=== PATIENT | male | born 1975 | race Caucasian/White ===

== ENCOUNTER 2023-04-13 12:37 | Outpatient (OUT) | payer MEDICAID, SELFPAY ==
[2023-04-13 13:13] LABS: Estimated Average Glucose 169 mg/dL; Glycohemoglobin A1C 7.5 % (4.5-6.2)
== END 2023-04-13 12:38 | disposition home or self-care (01) ==
LOC: LAB 12:41
PROVIDERS: PCP Internal Medicine; Visit Provider Internal Medicine
DX: E11.65 Type 2 diabetes mellitus with hyperglycemia (principal)
CPT/HCPCS: 36415; 83036

== ENCOUNTER 2023-04-15 22:52 | Emergency (ER) | payer MEDICAID, SELFPAY ==
[2023-04-15 22:55] VITALS: BP 143/98; PULSE 99; RESP 16; TEMP 37.1; O2SAT 96; BMI 39.3
--- NOTE | 2023-04-15 23:20 | ED.BACK1 ---
HPI - Back Pain/Injury General Chief Complaint: Back Pain/Injury Stated Complaint: BACK PAIN Time Seen by Provider: 04/15/23 23:00 Source: patient Mode of arrival: walk-in Limitations: no limitations History of Present Illness HPI Narrative: This 47-year-old male with a history of chronic back pain who has undergone radiofrequency ablation of his lumbar spine and had injections in his upper spine and is scheduled to see a neurologist on Sunday who is currently on Percocet, Lyrica and baclofen presents for evaluation of worsening right upper back pain underneath his right shoulder blade area. He denies any recent injury. He has no weakness or numbness. He also states that he feels like his scrotal area is being squeezed and he is having shooting pain into this area. He does not have any difficulty urinating. He is diabetic. He has no skin rash in his perineal area. He denies any bowel or bladder dysfunction. He has no lower extremity weakness. He does state that he feels that this is his chronic pain but it is worsening. He is ALLERGIC to NSAIDs and cannot have steroids due to his diabetes. MD elicited complaint: Reports back pain Related Data Allergies Allergy/AdvReac Type Severity Reaction Status Date / Time NSAIDS (Non-Steroidal Allergy Severe Anaphylaxis Verified 04/16/23 00:21 Anti-Inflamma Review of Systems ROS Status of ROS 10 or more systems reviewed and unremarkable except as noted in history and below [facility] Social History Smoking status: Former smoker Exam Narrative Exam Narrative: Nurses note and vital signs reviewed and patient is not hypoxic. Blood pressure is elevated at 143/98 General: Non toxic, overweight male, no distress noted, he moves easily about the stretcher and is ambulatory with a steady gait Skin: Warm, dry, no pallor noted. There is no rash noted. Head: Normocephalic, atraumatic Eye: Normal conjunctiva, no drainage, EOMI. PERRL Ears, Nose, Mouth, and Throat: oral mucosa is moist. Nares patent. Mouth without vesicles. Ear canals patent. Tm's without Erythema Cardiovascular: Regular Rate and Rhythm Respiratory: Patient is in no distress, no accessory muscle use, lungs are clear to auscultation, no wheezing, rales or rhonchi Back: Diffuse tenderness in the mid to upper thoracic region on underneath the right scapula, no skin rash noted, there is decreased lumbar lordosis noted and general tenderness throughout the lumbar spine. GI: Normal bowel sounds, no tenderness to palpation, no masses appreciated. No rebound, guarding, or rigidity noted. : exam chaperoned by RN, testes are descended bilaterally, scrotum are nontender, there is no inguinal tenderness or lymphadenopathy, penis and urethra appeared normal. There is no appreciable skin rash or other notable abnormality in the perineal area Musculoskeletal: The patient has no evidence of calf tenderness, no pitting edema, symmetrical pulses noted bilaterally Neurological: A&O x4, normal speech, Upper and lower external he strength and sensation is intact, deep tendon reflexes are brisk and equal bilaterally, there is no saddle anesthesia Psychiatric: Cooperative Constitutional Vital Signs, click to edit/add: Last Vital Signs Temp 98.8 F 04/15/23 22:55 Pulse 99 H 04/15/23 22:55 Resp 16 04/15/23 22:55 BP 143/98 H 04/15/23 22:55 Pulse Ox 96 04/15/23 22:55 O2 Del Method Room Air 04/15/23 22:55 Course Course Hospital Course: Pt has been ambulatory in the ED without difficulty. His labs are normal including a d dimer that is negative. He will be medicated with a single dose of IM Dilaudid and IM Norflex. Vital Signs Vital signs: Vital Signs Temperature 98.8 F 04/15/23 22:55 Pulse Rate 99 H 04/15/23 22:55 Respiratory Rate 16 04/15/23 22:55 Blood Pressure 143/98 H 04/15/23 22:55 Pulse Oximetry 96 04/15/23 22:55 Oxygen Delivery Method Room Air 04/15/23 22:55 Temperature 98.8 F 04/15/23 22:55 Pulse Rate 99 H 04/15/23 22:55 Respiratory Rate 16 04/15/23 22:55 Blood Pressure 143/98 H 04/15/23 22:55 Pulse Oximetry 96 04/15/23 22:55 Oxygen Delivery Method Room Air 04/15/23 22:55 MDM - Back Pain/Injury MDM Narrative Medical decision making narrative: This 47-year-old male with a history of chronic back pain presents for evaluation of worsening back pain. He complains of pain underneath his right shoulder blade. He denies any weakness numbness or tingling. He is also having worsening of his low back pain and feels like he is being given shocks into his genital region. His physical exam was normal. There was no abnormality in his perineal area. His reflexes are normal. Is ambulatory without difficulty. He is on Percocet, baclofen and Lyrica. I signed to him that I could give him a dose of a nonnarcotic medication such as Toradol but he states he has anaphylactic reactions to NSAIDs and refused steroids because he is diabetic. Due to the pain in the right scapular area ordered a d-dimer which was normal. CBC with differential and chemistry panel was also ordered and with the exception of a glucose of 151 it is normal. The patient arranged to get a ride home with his daughter and was medicated in emergency department with IM Norflex and IM Dilaudid. He will be discharged home to continue his current medical regimen and follow-up with neurology on Sunday. He is in agreement with this plan. His and daughter came to pick him up since he had the injection of the pain medication and muscle relaxant. Lab Data Labs: Lab Results 04/15/23 Range/Units 23:30 WBC 11.2 H (4.0-11.0) 10^3/uL RBC 5.00 (4.70-6.10) 10^6/uL Hgb 15.4 (14.0-18.0) g/dL Hct 44.5 (42.0-54.0) % MCV 89.0 (80.0-94.0) fL MCH 30.8 (25.9-34.0) pg MCHC 34.6 (29.9-35.2) g/dL RDW 12.6 (11.0-15.0) % Plt Count 373 (150-450) 10^3/uL MPV 10.5 (9.5-13.5) fL Neut % (Auto) 57.5 (43.0-75.0) % Lymph % (Auto) 31.6 (20.5-60.0) % [place] % (Auto) 7.9 (1.7-12.0) % Eos % (Auto) 1.7 (0.9-7.0) % Baso % (Auto) 0.7 (0.2-2.0) % Neut # (Auto) 6.5 (1.4-6.5) 10^3/uL Lymph # (Auto) 3.5 (1.2-3.8) 10^3/uL [place] # (Auto) 0.9 H (0.3-0.8) 10^3/uL Eos # (Auto) 0.2 (0.0-0.7) 10^3/uL Baso # (Auto) 0.1 (0.0-0.1) 10^3/uL Abs Immat Gran (auto) 0.07 H (0.00-0.03) 10^3/uL Imm/Tot Granulo (auto) 0.6 H (0.0-0.5) % D-Dimer 0.25 (<=0.59) mg/L FEU Sodium 134 L (136-145) mmol/L Potassium 3.7 (3.5-5.1) mmol/L Chloride 100 (98-107) mmol/L Carbon Dioxide 24.4 (21.0-32.0) mmol/L Anion Gap 13.3 BUN 15.0 (7.0-18.0) mg/dL Creatinine 0.93 (0.70-1.30) mg/dL Est GFR ( Amer) >60 (>=60) Est GFR (Non-Af Amer) >60 (>=60) BUN/Creatinine Ratio 16.1 Glucose 151 H (74-106) mg/dL Calcium 9.7 (8.5-10.1) mg/dL Total Bilirubin 0.4 (0.2-1.0) mg/dL AST 18 (15-37) U/L ALT 35 (16-63) U/L Alkaline Phosphatase 77 (46-116) U/L Total Protein 8.1 (6.4-8.2) g/dL Albumin 4.2 (3.4-5.0) g/dL Globulin 3.9 g/dL Albumin/Globulin Ratio 1.1 Discharge Plan Discharge Chief Complaint: Back Pain/Injury Clinical Impression: Acute exacerbation of chronic low back pain, Thoracic back pain Patient Disposition: Home, Self-Care Time of Disposition Decision: 00:52 Condition: Good Instructions: Acute Low Back Pain (ED), Chronic Back Pain (DC) Stand Alone Forms: Portal Instructions Referrals: Shaikh Prater MD [Primary Care Provider] - 1 week
[2023-04-15 23:39] LABS: Basophils Absolute Auto 0.1 10^3/uL (0.0-0.1); Basophils Percent Auto 0.7 % (0.2-2.0); Eosinophils Absolute Auto 0.2 10^3/uL (0.0-0.7); Eosinophils Percent Auto 1.7 % (0.9-7.0); Hematocrit 44.5 % (42.0-54.0); Hemoglobin 15.4 g/dL (14.0-18.0); Immature Granulocytes Abs Auto 0.07 10^3/uL (0.00-0.03); Immature Granulocytes Pct Auto 0.6 % (0.0-0.5); Lymphocytes Absolute Auto 3.5 10^3/uL (1.2-3.8); Lymphocytes Percent Auto 31.6 % (20.5-60.0); Mean Corpuscular HGB Conc 34.6 g/dL (29.9-35.2); Mean Corpuscular Hemoglobin 30.8 pg (25.9-34.0); Mean Platelet Volume 10.5 fL (9.5-13.5); Monocytes Absolute Auto 0.9 10^3/uL (0.3-0.8); Monocytes Percent Auto 7.9 % (1.7-12.0); Neutrophils Absolute Auto 6.5 10^3/uL (1.4-6.5); Neutrophils Percent Auto 57.5 % (43.0-75.0); Platelet Count 373 10^3/uL (150-450); Red Cell Distribution Width 12.6 % (11.0-15.0); White Blood Count 11.2 10^3/uL (4.0-11.0)
[2023-04-15 23:51] LABS: D Dimer 0.25 mg/L FEU (<=0.59)
[2023-04-15 23:54] LABS: Alanine Aminotransferase 35 U/L (16-63); Albumin Globulin Ratio 1.1; Albumin Level 4.2 g/dL (3.4-5.0); Alkaline Phosphatase 77 U/L (46-116); Anion Gap 13.3; Aspartate Amino Transferase 18 U/L (15-37); BUN Creatinine Ratio 16.1; Bilirubin Total 0.4 mg/dL (0.2-1.0); Calcium 9.7 mg/dL (8.5-10.1); Carbon Dioxide 24.4 mmol/L (21.0-32.0); Chloride 100 mmol/L (98-107); Estimated GFR (African America >60 (>=60); Estimated GFR (Non-African Ame >60 (>=60); Globulin 3.9 g/dL; Glucose 151 mg/dL (74-106); Potassium 3.7 mmol/L (3.5-5.1); Sodium 134 mmol/L (136-145); Total Protein 8.1 g/dL (6.4-8.2)
--- NOTE | 2023-04-16 00:09 | XR_ITS ---
The [address] [address] Patient Name: ESDRAS CÁRDENAS MRN: [id number] date: 1975 Sex: M Assigned Patient Location: ED.MAIN Current Patient Location: ER Accession/Order Number: [id number] Exam Date: 04/16/2023 00:25 Report Date: 04/16/2023 00:46 At the request of: SYLVIA PERALES Procedure: XR thoracic spine 3V THORACIC SPINE RADIOGRAPHS HISTORY: back pain. COMPARISON: None. TECHNIQUE: 3 views were performed of the thoracic spine. FINDINGS: VERTEBRAL BODIES: Normal height with no acute compression fracture. DISC SPACES: There is very minimal endplate degenerative disc disease in the mid to lower thoracic spine. ALIGNMENT: Normal. SOFT TISSUES : Unremarkable. IMPRESSION: Minimal endplate degenerative disc disease in the mid to lower thoracic spine. Unremarkable plain film examination otherwise. Electronically authenticated by: ALICIA WOODY Date: 04/16/2023 00:46
[2023-04-16] MEDS: HYDROMORPHONE HCL 1 MG/ML CARTRIDGE 2 MG IM (00:34)
[2023-04-16] MEDS: ORPHENADRINE 60 MG/ 2 ML VIAL IM (00:34)
[2023-04-16] MEDS: ONDANSETRON 4 MG RAPDIS TABLET SL (01:22)
[2023-04-16] MEDS: ONDANSETRON PF 4 MG/2 ML VIAL IM (01:55)
== END 2023-04-16 02:05 | disposition home or self-care (01) ==
PROVIDERS: Emergency Provider Emergency Medicine; PCP Internal Medicine
DX: M54.6 Pain in thoracic spine (principal); M54.50 Low back pain, unspecified; G89.29 Other chronic pain; E11.9 Type 2 diabetes mellitus without complications; Z87.891 Personal history of nicotine dependence
CPT/HCPCS: 36415; 72072; 80053; 85025; 85378; 96372; 96374; 99285; J1170

== ENCOUNTER 2023-05-12 21:15 | Emergency (ER) | payer MEDICAID, SELFPAY ==
[2023-05-12] VITALS (7 sets, daily range): BP systolic 122–139; BP diastolic 78–90; PULSE 88; RESP 18; TEMP 36.8; O2SAT 90–97; BMI 37.8
--- NOTE | 2023-05-12 22:08 | ED_ITS ---
HPI - Back Pain/Injury General Chief Complaint: Back Pain/Injury Stated Complaint: BACK PAIN/NECK PAIN Time Seen by Provider: 05/12/23 21:22 Source: patient Mode of arrival: walk-in Limitations: no limitations History of Present Illness HPI Narrative: patient has history of chronic back pain. takes oxycodone and lyrica as well as baclofen daily. Pain usually lower back and radiates into the right thigh. Maximus also has pain of his right upper back near his scapula that radiates into his right neck. Additional has history of neuropathy of his lower extremities and is followed at [facility]. He is not short of breath. no focal weakness of his extremities or fever. No recent injury or lifting accident Related Data Home Medications Medication Instructions Recorded Confirmed albuterol sulfate 90 mcg/actuation inhalation 05/12/23 aerosol inhaler (Ventolin HFA) baclofen 20 mg tablet mg 05/12/23 dulaglutide 3 mg/0.5 mL mg subcut 05/12/23 subcutaneous pen injector (Trulicity) duloxetine 60 mg capsule,delayed mg PO 05/12/23 release glipizide 10 mg tablet, extended mg PO 05/12/23 release 24 hr lidocaine 5 % topical patch patch 05/12/23 metformin 1,000 mg tablet mg 05/12/23 mometasone-formoterol HFA 100 inhalation 05/12/23 mcg-5 mcg/actuation aerosol inhaler (Dulera) oxycodone 5 mg tablet mg 05/12/23 pregabalin 200 mg capsule mg 05/12/23 ropinirole 4 mg tablet mg 05/12/23 trazodone 100 mg tablet mg 05/12/23 Allergies Allergy/AdvReac Type Severity Reaction Status Date / Time NSAIDS (Non-Steroidal Allergy Severe Anaphylaxis Verified 05/12/23 21:20 Anti-Inflamma Review of Systems ROS Status of ROS 10 or more systems reviewed and unremarkable except as noted in history and below PFSH PFSH Social History Smoking status: Former smoker Exam Constitutional Vital Signs, click to edit/add: Last Vital Signs Temp 98.3 F 05/12/23 21:20 Pulse 88 05/12/23 21:20 Resp 18 05/12/23 21:20 BP 128/90 05/12/23 23:00 Pulse Ox 96 05/12/23 23:20 O2 Del Method Room Air 05/12/23 21:20 [facility] Common normals: normocephalic and head/scalp atraumatic Eye Common normals: EOMs intact bilaterally and conjunctivae normal Chest Other: tenderness right scapula that reproduces symptoms. mild tenderness right cervical neck Respiratory Common normals: normal respiratory effort, no retractions, no use of accessory muscles and clear to auscultation bilaterally Cardio Common normals: regular rate, regular rhythm, S1 normal heart sound and S2 normal heart sound GI Common normals: Normal to inspection, nondistended, normoactive bowel sounds present, soft to palpation and non-tender Extremity Common normals: normal to inspection and full ROM Neuro Common normals: oriented x3, CN's II-XII intact bilaterally, moves all extremities and no focal motor deficits Psych Appearance: grossly normal Course Vital Signs Vital signs: Vital Signs Temperature 98.3 F 05/12/23 21:20 Pulse Rate 88 05/12/23 21:20 Respiratory Rate 18 05/12/23 21:20 Blood Pressure 139/84 05/12/23 21:20 Pulse Oximetry 97 05/12/23 21:20 Oxygen Delivery Method Room Air 05/12/23 21:20 Temperature 98.3 F 05/12/23 21:20 Pulse Rate 88 05/12/23 21:20 Respiratory Rate 18 05/12/23 21:20 Blood Pressure 128/90 05/12/23 23:00 Pulse Oximetry 96 05/12/23 23:20 Oxygen Delivery Method Room Air 05/12/23 21:20 MDM - Back Pain/Injury MDM Narrative Medical decision making narrative: patient presents with right sided back pain. also has chronic lower right sided back pain. treated in the department and is feeling better. labs unremarkable except RBS 200. Patient is diabetic. Patient discharged home in improved condition to follow up with his doctor Lab Data Labs: Lab Results 05/12/23 Range/Units 22:30 WBC 9.9 (4.0-11.0) 10^3/uL RBC 4.59 L (4.70-6.10) 10^6/uL Hgb 14.2 (14.0-18.0) g/dL Hct 40.9 L (42.0-54.0) % MCV 89.1 (80.0-94.0) fL MCH 30.9 (25.9-34.0) pg MCHC 34.7 (29.9-35.2) g/dL RDW 12.4 (11.0-15.0) % Plt Count 345 (150-450) 10^3/uL MPV 10.8 (9.5-13.5) fL Neut % (Auto) 51.6 (43.0-75.0) % Lymph % (Auto) 36.2 (20.5-60.0) % [place] % (Auto) 8.7 (1.7-12.0) % Eos % (Auto) 2.2 (0.9-7.0) % Baso % (Auto) 0.9 (0.2-2.0) % Neut # (Auto) 5.1 (1.4-6.5) 10^3/uL Lymph # (Auto) 3.6 (1.2-3.8) 10^3/uL [place] # (Auto) 0.9 H (0.3-0.8) 10^3/uL Eos # (Auto) 0.2 (0.0-0.7) 10^3/uL Baso # (Auto) 0.1 (0.0-0.1) 10^3/uL Abs Immat Gran (auto) 0.04 H (0.00-0.03) 10^3/uL Imm/Tot Granulo (auto) 0.4 (0.0-0.5) % D-Dimer <0.19 (<=0.59) mg/L FEU Sodium 136 (136-145) mmol/L Potassium 3.7 (3.5-5.1) mmol/L Chloride 100 (98-107) mmol/L Carbon Dioxide 25.5 (21.0-32.0) mmol/L Anion Gap 14.2 BUN 10.0 (7.0-18.0) mg/dL Creatinine 1.09 (0.70-1.30) mg/dL Est GFR ( Amer) >60 (>=60) Est GFR (Non-Af Amer) >60 (>=60) BUN/Creatinine Ratio 9.2 Glucose 201 H (74-106) mg/dL Calcium 9.2 (8.5-10.1) mg/dL Troponin I High Sens <4.0 L (4.0-76.1) pg/mL Discharge Plan Discharge Chief Complaint: Back Pain/Injury Clinical Impression: Thoracic back pain Prescriptions / Home Meds: No Action glipizide 10 mg tablet extended release 24hr PO baclofen 20 mg tablet trazodone 100 mg tablet metformin 1,000 mg tablet lidocaine 5 % adhesive patch,medicated albuterol sulfate [Ventolin HFA] 90 mcg/actuation HFA aerosol inhaler INHALATION ropinirole 4 mg tablet oxycodone 5 mg tablet duloxetine 60 mg capsule,delayed release(DR/EC) PO pregabalin 200 mg capsule Dulera 100-5 mcg/actuation HFA aerosol inhaler INHALATION Trulicity 3 mg/0.5 mL pen injector SUBCUT Instructions: Back Pain (ED) Additional Instructions: follow up with your family doctor next week.Continue your current pain medications Stand Alone Forms: Portal Instructions Referrals: Shaikh Prater MD [Primary Care Provider] - 1 week
--- NOTE | 2023-05-12 22:12 | XR_ITS ---
The [address] [address] Patient Name: ESDRAS CÁRDENAS MRN: [id number] date: 1975 Sex: M Assigned Patient Location: ER Current Patient Location: ER Accession/Order Number: [id number] Exam Date: 05/12/2023 22:23 Report Date: 05/12/2023 22:56 At the request of: MARLON HARE Procedure: XR chest 1V EXAM: XR chest 1V HISTORY: chest pain COMPARISON: None. TECHNIQUE: One view of the chest was obtained. FINDINGS: The cardiac silhouette is normal in size. Calcified granulomas are seen in the right lung. There is no significant pneumothorax or pleural effusion. No acute osseous abnormality is seen. XR/XR chest 1V IMPRESSION: 1. No acute cardiopulmonary abnormality. Electronically authenticated by: Suman MEYERS Date: 05/12/2023 22:56
[2023-05-12 22:40] LABS: Basophils Absolute Auto 0.1 10^3/uL (0.0-0.1); Basophils Percent Auto 0.9 % (0.2-2.0); Eosinophils Absolute Auto 0.2 10^3/uL (0.0-0.7); Eosinophils Percent Auto 2.2 % (0.9-7.0); Hematocrit 40.9 % (42.0-54.0); Hemoglobin 14.2 g/dL (14.0-18.0); Immature Granulocytes Abs Auto 0.04 10^3/uL (0.00-0.03); Immature Granulocytes Pct Auto 0.4 % (0.0-0.5); Lymphocytes Absolute Auto 3.6 10^3/uL (1.2-3.8); Lymphocytes Percent Auto 36.2 % (20.5-60.0); Mean Corpuscular HGB Conc 34.7 g/dL (29.9-35.2); Mean Corpuscular Hemoglobin 30.9 pg (25.9-34.0); Mean Corpuscular Volume 89.1 fL (80.0-94.0); Mean Platelet Volume 10.8 fL (9.5-13.5); Monocytes Absolute Auto 0.9 10^3/uL (0.3-0.8); Monocytes Percent Auto 8.7 % (1.7-12.0); Neutrophils Absolute Auto 5.1 10^3/uL (1.4-6.5); Neutrophils Percent Auto 51.6 % (43.0-75.0); Platelet Count 345 10^3/uL (150-450); Red Blood Count 4.59 10^6/uL (4.70-6.10); Red Cell Distribution Width 12.4 % (11.0-15.0); White Blood Count 9.9 10^3/uL (4.0-11.0)
[2023-05-12] MEDS: FENTANYL CITRATE/PF 100 MCG/2 ML VIAL 50 MCG IV (22:45)
[2023-05-12] MEDS: METHYLPREDNISOLONE SOD SUCC PF 125 MG/2 ML VIAL IVP (22:45)
[2023-05-12 22:52] LABS: D Dimer <0.19 mg/L FEU (<=0.59)
[2023-05-12] MEDS: MAGNESIUM SULFATE IN WATER 50 ML IV (22:52)
[2023-05-12 22:56] LABS: Anion Gap 14.2; BUN Creatinine Ratio 9.2; Calcium 9.2 mg/dL (8.5-10.1); Carbon Dioxide 25.5 mmol/L (21.0-32.0); Chloride 100 mmol/L (98-107); Estimated GFR (African America >60 (>=60); Estimated GFR (Non-African Ame >60 (>=60); Glucose 201 mg/dL (74-106); Potassium 3.7 mmol/L (3.5-5.1); Sodium 136 mmol/L (136-145); Troponin I High Sensitivity <4.0 pg/mL (4.0-76.1)
== END 2023-05-12 23:50 | disposition home or self-care (01) ==
PROVIDERS: Emergency Provider Internal Medicine; PCP Internal Medicine
DX: M54.6 Pain in thoracic spine (principal); G62.9 Polyneuropathy, unspecified; G89.29 Other chronic pain; M54.50 Low back pain, unspecified; Z87.891 Personal history of nicotine dependence; Z79.899 Other long term (current) drug therapy; Z79.84 Long term (current) use of oral hypoglycemic drugs; Z79.85 Long-term (current) use of injectable non-insulin antidiabetic drugs
CPT/HCPCS: 36415; 71045; 80048; 84484; 85025; 85378; 96365; 96375; 99285; J2930

== ENCOUNTER 2023-05-21 13:19 | Outpatient (OUT) | payer MEDICAID, SELFPAY ==
--- NOTE | 2023-05-21 14:44 | PM.CN ---
Consult Note: HPI Data of Consult Patient: new to practice Consult date: 05/21/23 Requesting Physician: Terri Abrams MD Primary Care Provider: Shaikh Moi MD Consult Narrative Reason for consult: Low back, bilateral leg pain, neck, bilateral arm pain Narrative: this is a pleasant 47-year-old gentleman who presents for evaluation. He notes generalized pain throughout many regions of his body, including his neck and bilateral arms, as well as his low back and bilateral lower extremities. This has been ongoing for years, but continues to worsen. He has undergone physical therapy and a course of provider directed home exercises for greater than three months, but this has not provided any lasting relief. His lumbar imaging was reviewed, which significant for multilevel spondylosis, as well as multilevel stenosis, worst at L5-S1. He utilizes various medications, including oxycodone 5 mg 4 times a day when necessary. She denies adverse medication side effects or loss of bowel or bladder control. cc:: CC: Terri Abrams MD Review of Systems ROS Status of ROS 10 or more systems reviewed and unremarkable except as noted in history and below PFSH PFSH Social History Smoking status: Former smoker Meds Home Medications and Allergies Home Medications Medication Instructions Recorded Confirmed Type albuterol sulfate 90 mcg/actuation inhalation 05/12/23 History aerosol inhaler (Ventolin HFA) baclofen 20 mg tablet mg 05/12/23 History dulaglutide 3 mg/0.5 mL mg subcut 05/12/23 History subcutaneous pen injector (Trulicity) duloxetine 60 mg capsule,delayed mg PO 05/12/23 History release glipizide 10 mg tablet, extended mg PO 05/12/23 History release 24 hr lidocaine 5 % topical patch patch 05/12/23 History metformin 1,000 mg tablet mg 05/12/23 History mometasone-formoterol HFA 100 inhalation 05/12/23 History mcg-5 mcg/actuation aerosol inhaler (Dulera) oxycodone 5 mg tablet mg 05/12/23 History pregabalin 200 mg capsule mg 05/12/23 History ropinirole 4 mg tablet mg 05/12/23 History trazodone 100 mg tablet mg 08/05/23 History Allergies Allergy/AdvReac Type Severity Reaction Status Date / Time NSAIDS (Non-Steroidal Allergy Severe Anaphylaxis Verified 05/12/23 21:20 Anti-Inflamma Exam Constitutional Common normals: no apparent distress, oriented x3 and healthy appearing Respiratory Common normals: normal respiratory effort Effort & inspection: able to speak in complete sentences Back & Pelvis Other: tenderness to palpation of the low back and paraspinal musculature. Pain is elicited with flexion, extension, and lateral rotation of the lumbar spine. Facet loading maneuvers are positive bilaterally. Strength is noted to be unremarkable throughout the bilateral lower extremities except for decreased strength rated at 4/5 in the bilateral quadriceps femoris, anterior tibialis. Sensation noted to be unremarkable throughout the bilateral lower extremities except for dysesthesia in the bilateral L4, L5 dermatomal distributions. tenderness to palpation over the bilateral PSIS. Ramón's maneuver is positive bilaterally. Thigh thrust is positive bilaterally. Coordination remains intact. Gait remains nonantalgic. Extremity Common normals: normal to inspection Neuro Common normals: oriented x3, CN's II-XII intact bilaterally and no focal motor deficits Psych Common normals: mental status grossly normal and cooperative Assessment and Plan Assessment and Plan (1) Lumbar stenosis with neurogenic claudication: (2) Lumbar spondylosis: (3) Cervical spondylosis: Plan this is a pleasant 47-year-old gentleman who presents for evaluation. he has failed physical and medical modalities, as listed above. His imaging was reviewed, as noted above. given his symptomatology and imaging findings, coupled with his failure to respond to greater than three months of conservative management, it is prudent to attempt bilateral L5-S1 transforaminal epidural steroid injection a provide analgesia. She may even benefit from bilateral sacroiliac joint injections. He is in agreement with this plan. Medications were reviewed. I agreed to prescribe Percocet 5 mg 3 times a day when necessary. We will obtain a urine drug screen today. He expressed understanding. He will follow up after the procedures completed.
== END 2023-05-21 13:20 | disposition home or self-care (01) ==
LOC: PM 13:21
PROVIDERS: PCP Internal Medicine; Visit Provider Anesthesiology
DX: M47.816 Spondylosis without myelopathy or radiculopathy, lumbar region (principal); M47.812 Spondylosis without myelopathy or radiculopathy, cervical region; M48.062 Spinal stenosis, lumbar region with neurogenic claudication
CPT/HCPCS: G0463

== ENCOUNTER 2023-06-01 13:46 | Outpatient (OUT) | payer MEDICAID, SELFPAY ==
--- NOTE | 2023-06-01 | XR_ITS ---
The [address] [address] Patient Name: ESDRAS CÁRDENAS MRN: [id number] date: 1975 Sex: M Assigned Patient Location: [facility] Current Patient Location: [facility] Accession/Order Number: [id number] Exam Date: 06/01/2023 14:00 Report Date: 06/01/2023 16:42 At the request of: MARY ARGUETA Procedure: XR lumbar spine 2-3V XR lumbar spine 2-3V, 06/01/2023 2:00 PM EDT, [place]001 INDICATION: paresthesia, R20.2 COMPARISON: Radiographs from 08/10/2022 TECHNIQUE: 3 images are submitted including lateral flexion and extension images. FINDINGS: The vertebral bodies demonstrate normal sagittal alignment. There is no significant increased motion with flexion or extension. No acute fracture or subluxation is identified. Mild disc space narrowing and endplate osteophyte formation is again seen at L5-S1 The visualized soft tissues appear unremarkable. XR/XR lumbar spine 2-3V IMPRESSION: Mild degenerative change. No evidence of instability. Electronically authenticated by: CHALO FAUSTIN Date: 06/01/2023 16:42
== END 2023-06-01 13:47 | disposition home or self-care (01) ==
LOC: RAD 13:46
PROVIDERS: PCP Internal Medicine; Visit Provider Nurse Practitioner Adult Health
DX: R20.2 Paresthesia of skin (principal); R53.1 Weakness; M47.896 Other spondylosis, lumbar region
CPT/HCPCS: 72100

== ENCOUNTER 2023-06-04 20:51 | Outpatient (OUT) | payer MEDICAID, SELFPAY | END 2023-06-04 20:52 | disposition home or self-care (01) | LOC: SLEEP 20:51 | PROVIDERS: PCP Internal Medicine; Visit Provider Internal Medicine | DX: G47.33 Obstructive sleep apnea (adult) (pediatric) (principal); G25.81 Restless legs syndrome; F51.01 Primary insomnia | CPT/HCPCS: 95810 ==

== ENCOUNTER 2023-07-27 12:00 | Emergency (ER) | payer MEDICAID, SELFPAY ==
[2023-07-27 12:02] VITALS: BP 151/102; PULSE 73; RESP 16; TEMP 36.7; O2SAT 97; BMI 39.5
--- NOTE | 2023-07-27 12:52 | ED_ITS ---
HPI - General Adult General Chief complaint: Extremity Injury, Upper Stated complaint: R HAND INJURY Time Seen by Provider: 07/27/23 12:43 Source: patient Mode of arrival: walk-in History of Present Illness HPI narrative: Patient is a 47-year-old male who is presenting to the Emergency Room with chief complaint of a possibly infected right middle finger fingernail/fingernail. Patient is diabetic. Patient is right-hand dominant. Patient is disabled. Patient has no fever, chills, no systemic complaints. Patient has been having pus that spent draining out from the paronychia from the right middle finger, radial aspect. Patient has no pus pockets that are seen at this time. Patient does have swelling to the radial aspect of the right middle fingernail. No pain to the tuft or fat pad of the right middle finger. No other acute complaints. Patient's is at bedside, she's been using peroxide and topical antibiotic ointment to the right middle finger. It is been bothering him for the past 3-4 days. It has been intermittently draining already. . All systems are negative except as noted/marked. All systems reviewed and otherwise negative. . Nurses note and vital signs reviewed and patient is not hypoxic. General: The patient appears well and in no apparent distress. Patient is resting comfortably on cart. Patient is not toxic, lethargic, or listless Skin: Warm, dry, no pallor noted. There is no rash noted. No petechiae, purpura. Head: Normocephalic, atraumatic. Eye: Normal conjunctiva, no drainage, EOMI. PERRL Ears, Nose, Mouth, and Throat: oral mucosa is moist. Nares patent. Mouth without vesicles. Cardiovascular: Regular Rate and Rhythm, no murmur, gallop, rub Respiratory: Patient is in no distress, no accessory muscle use, lungs are clear to auscultation, no wheezing, rales or rhonchi Musculoskeletal: Patient has full range of motion of all of the extremities With no difficulty besides right middle finger. Patient has mild swelling to the radial aspect of the right middle finger, volar aspect. Patient has no pus pocket. There is no raising of the fingernail of the right middle finger. Patient has full range of motion of flexion and extension of the DIP joint and the PIP joint of the right middle finger with no difficulty. Otherwise no motor, sensory, or focal neurological deficits Neurological: A&O x3, normal speech Psychiatric: Cooperative Related Data Home Medications Medication Instructions Recorded Confirmed albuterol sulfate 90 mcg/actuation inhalation 05/12/23 aerosol inhaler (Ventolin HFA) baclofen 20 mg tablet mg 05/12/23 dulaglutide 3 mg/0.5 mL mg subcut 05/12/23 subcutaneous pen injector (Trulicity) duloxetine 60 mg capsule,delayed mg PO 05/12/23 release glipizide 10 mg tablet, extended mg PO 05/12/23 release 24 hr lidocaine 5 % topical patch patch 05/12/23 metformin 1,000 mg tablet mg 05/12/23 mometasone-formoterol HFA 100 inhalation 05/12/23 mcg-5 mcg/actuation aerosol inhaler (Dulera) oxycodone 5 mg tablet mg 05/12/23 pregabalin 200 mg capsule mg 05/12/23 ropinirole 4 mg tablet mg 05/12/23 trazodone 100 mg tablet mg 05/12/23 Previous Rx's Medication Instructions Recorded cephalexin 500 mg capsule 500 mg PO TID 7 days #21 caps 07/27/23 mupirocin 2 % topical ointment 1 applic topical TID 14 days #15 07/27/23 grams Allergies Allergy/AdvReac Type Severity Reaction Status Date / Time NSAIDS (Non-Steroidal Allergy Severe Anaphylaxis Verified 05/12/23 21:20 Anti-[facility]amma [facility] Social History Smoking status: Former smoker Exam Constitutional Vital Signs, click to edit/add: Last Vital Signs Temp 98.0 F 07/27/23 12:02 Pulse 73 07/27/23 12:02 Resp 16 07/27/23 12:02 BP 151/102 H 07/27/23 12:02 Pulse Ox 97 07/27/23 12:02 O2 Del Method Room Air 07/27/23 12:02 Course Vital Signs Vital signs: Vital Signs Temperature 98.0 F 07/27/23 12:02 Pulse Rate 73 07/27/23 12:02 Respiratory Rate 16 07/27/23 12:02 Blood Pressure 151/102 H 07/27/23 12:02 Pulse Oximetry 97 07/27/23 12:02 Oxygen Delivery Method Room Air 07/27/23 12:02 Temperature 98.0 F 07/27/23 12:02 Pulse Rate 73 07/27/23 12:02 Respiratory Rate 16 07/27/23 12:02 Blood Pressure 151/102 H 07/27/23 12:02 Pulse Oximetry 97 07/27/23 12:02 Oxygen Delivery Method Room Air 07/27/23 12:02 Medical Decision Making MDM Narrative Medical decision making narrative: Patient was given a prescription for naproxen and is supportive. Patient has already been having drainage coming from the right middle finger paronychia. Education on warm soaks, antibiotics, falling with PCP. Antibiotics are being prescribed because he is a diabetic. Patient is right-hand dominant. Patient has no signs of felon or herpetic boo. Discharge Plan Discharge Chief Complaint: Extremity Injury, Upper Clinical Impression: Paronychia of right middle finger Patient Disposition: Home, Self-Care Time of Disposition Decision: 12:52 Condition: Fair Prescriptions / Home Meds: New cephalexin 500 mg capsule 500 mg PO TID 7 Days Qty: 21 0RF mupirocin 2 % ointment 1 applic topical TID 14 Days Qty: 15 0RF No Action glipizide 10 mg tablet extended release 24hr PO baclofen 20 mg tablet trazodone 100 mg tablet metformin 1,000 mg tablet lidocaine 5 % adhesive patch,medicated albuterol sulfate [Ventolin HFA] 90 mcg/actuation HFA aerosol inhaler INHALATION ropinirole 4 mg tablet oxycodone 5 mg tablet duloxetine 60 mg capsule,delayed release(DR/EC) PO pregabalin 200 mg capsule Dulera 100-5 mcg/actuation HFA aerosol inhaler INHALATION Trulicity 3 mg/0.5 mL pen injector SUBCUT Instructions: Paronychia (ED) Additional Instructions: Use warm soaks once an hour while awake for the next 3-4 days. Use topical and oral antibiotics. Follow-up with PCP if no improvement in the next 4-5 days. If drainage occurs, Continue treatment as discussed at bedside. Stand Alone Forms: Portal Instructions Referrals: Shaikh Prater MD [Primary Care Provider] - 1 week
--- NOTE | 2023-07-27 13:07 | ED.GENADUL1 ---
HPI - General Adult General Chief complaint: Extremity Injury, Upper Stated complaint: R HAND INJURY Time Seen by Provider: 07/27/23 12:43 Source: patient Mode of arrival: walk-in Related Data Home Medications Medication Instructions Recorded Confirmed albuterol sulfate 90 mcg/actuation inhalation 05/12/23 aerosol inhaler (Ventolin HFA) baclofen 20 mg tablet mg 05/12/23 dulaglutide 3 mg/0.5 mL mg subcut 05/12/23 subcutaneous pen injector (Trulicity) duloxetine 60 mg capsule,delayed mg PO 05/12/23 release glipizide 10 mg tablet, extended mg PO 05/12/23 release 24 hr lidocaine 5 % topical patch patch 05/12/23 metformin 1,000 mg tablet mg 05/12/23 mometasone-formoterol HFA 100 inhalation 05/12/23 mcg-5 mcg/actuation aerosol inhaler (Dulera) oxycodone 5 mg tablet mg 05/12/23 pregabalin 200 mg capsule mg 05/12/23 ropinirole 4 mg tablet mg 05/12/23 trazodone 100 mg tablet mg 05/12/23 Previous Rx's Medication Instructions Recorded cephalexin 500 mg capsule 500 mg PO TID 7 days #21 caps 07/27/23 mupirocin 2 % topical ointment 1 applic topical TID 14 days #15 07/27/23 grams Allergies Allergy/AdvReac Type Severity Reaction Status Date / Time NSAIDS (Non-Steroidal Allergy Severe Anaphylaxis Verified 05/12/23 21:20 Anti-Inflamma PFSH PFSH Social History Smoking status: Former smoker Exam Constitutional Vital Signs, click to edit/add: Last Vital Signs Temp 98.0 F 07/27/23 12:02 Pulse 73 07/27/23 12:02 Resp 16 07/27/23 12:02 BP 151/102 H 07/27/23 12:02 Pulse Ox 97 07/27/23 12:02 O2 Del Method Room Air 07/27/23 12:02 Course Vital Signs Vital signs: Vital Signs Temperature 98.0 F 07/27/23 12:02 Pulse Rate 73 07/27/23 12:02 Respiratory Rate 16 07/27/23 12:02 Blood Pressure 151/102 H 07/27/23 12:02 Pulse Oximetry 97 07/27/23 12:02 Oxygen Delivery Method Room Air 07/27/23 12:02 Temperature 98.0 F 07/27/23 12:02 Pulse Rate 73 07/27/23 12:02 Respiratory Rate 16 07/27/23 12:02 Blood Pressure 151/102 H 07/27/23 12:02 Pulse Oximetry 97 07/27/23 12:02 Oxygen Delivery Method Room Air 07/27/23 12:02 Discharge Plan Discharge Chief Complaint: Extremity Injury, Upper Clinical Impression: Paronychia of right middle finger Patient Disposition: Home, Self-Care Time of Disposition Decision: 12:52 Condition: Fair Prescriptions / Home Meds: New cephalexin 500 mg capsule 500 mg PO TID 7 Days Qty: 21 0RF mupirocin 2 % ointment 1 applic topical TID 14 Days Qty: 15 0RF No Action glipizide 10 mg tablet extended release 24hr PO baclofen 20 mg tablet trazodone 100 mg tablet metformin 1,000 mg tablet lidocaine 5 % adhesive patch,medicated albuterol sulfate [Ventolin HFA] 90 mcg/actuation HFA aerosol inhaler INHALATION ropinirole 4 mg tablet oxycodone 5 mg tablet duloxetine 60 mg capsule,delayed release(DR/EC) PO pregabalin 200 mg capsule Dulera 100-5 mcg/actuation HFA aerosol inhaler INHALATION Trulicity 3 mg/0.5 mL pen injector SUBCUT Instructions: Paronychia (ED) Additional Instructions: Use warm soaks once an hour while awake for the next 3-4 days. Use topical and oral antibiotics. Follow-up with PCP if no improvement in the next 4-5 days. If drainage occurs, Continue treatment as discussed at bedside. Stand Alone Forms: Portal Instructions Referrals: Shaikh Prater MD [Primary Care Provider] - 1 week
== END 2023-07-27 13:07 | disposition home or self-care (01) ==
PROVIDERS: Emergency Provider Emergency Medicine; PCP Internal Medicine
DX: L03.011 Cellulitis of right finger (principal); E11.9 Type 2 diabetes mellitus without complications; Z79.899 Other long term (current) drug therapy; Z87.891 Personal history of nicotine dependence
CPT/HCPCS: 99282

== ENCOUNTER 2023-11-12 12:17 | Outpatient (OUT) | payer MEDICAID, SELFPAY ==
--- OUTSIDE RECORDS SUMMARY | 2023-11-12 12:23 | XMS_ITS | CCD ---
Author Name Unknown Address [address] [place] [address] Organization [facility] Care Team Providers Care Manager Hris Name Role Phone Nahid Gu Unavailable MD Carmen Wheatley Primary Care Provider [phone] MD Milton Valentine II Attending Provider [phone] Unavailable Primary Care Provider UnavailShaikh Nichols MD Primary Care Provider Francis Barr Unavailable Milton Valentine II [facility]available [facility] Kristina Mak Emergency Provider MD Masood Prater Primary Care Provider ARCELAI JUAREZ Admitting Unavailable FAWWAD, MEYER H Primary Care Unavailable ARCELIA JUAREZ Attending Unavailable DR WASHINGTON DURAN V Consulting Unavailable SLOAN .DORIS Consulting UnavailDR ERICK Ramirez Admitting Unavailable DR ERICK SALGADO Attending Unavailable ETELVINA .JOSEPH Consulting Unavailable FAWWAD, MEYER H Primary Care Unavailable DIAB ., HASMUKH Admitting Unavailable DIAB ., HASMUKH Attending Unavailable DIAB ., HASMUKH Consulting Unavailable FAWWAD, MEYER H Primary Care Unavailable FAWWAD, MEYER H Attending Unavailable FAWWAD, MEYER H Consulting Unavailable FAWWAD, MEYER H Primary Care Unavailable FAWWAD, MEYER H Admitting Unavailable MOI, MEYER H Attending Unavailable DR WASHINGTON DURAN V Consulting Unavailable FAWWAD, MEYER H Primary Care Unavailable FAWWAD, MEYER H Admitting Unavailable FAWWAD, MEYER H Consulting Unavailable FAWWAD, MEYER H Attending Unavailable DR DIANA GUZMÁN Consulting Unavailable FAWWAD, MEYER H Primary Care Unavailable FAWWAD, MEYER H Admitting Unavailable FAWWAD, MEYER H Consulting Unavailable FAWWAD, MEYER H Attending Unavailable FAWWAD, MEYER H Primary Care Unavailable FAWWAD, MEYER H Admitting Unavailable TANKHA, KB Referring Unavailable FAWWAD, [facility] Primary Care Unavailable OLAYINKA BOYD Referring Unavailable TANKHA, KB Attending Unavailable FAWWAD, [facility] Primary Care Unavailable SANTANA HARRIS Referring Unavailable FAWWAD, [facility] Primary Care Unavailable SANTANA HARRIS Referring Unavailable FAWWAD, [facility] Primary Care Unavailable SANTANA HARRIS Attending Unavailable OLAYINKA BOYD Attending Unavailable TANKHA, KB Attending Unavailable FAWNCD, [facility] Primary Care Unavailable WASHINGTON CASTELLANOS Attending Unavailable TANKHA, KB Referring Unavailable FAWWAD, [facility] Primary Care Unavailable TANKHA, KB Admitting Unavailable TANKHA, KB Attending Unavailable FAWNCD, [facility] Primary Care Unavailable MD Moi [facility] Primary Care Provider [phone] [facility] Tracy Attending Provider Terri Abarms MD Attending Unavailable [facility] Tracy Referring Provider Carmen [place] Unavailable MD Moi [facility] Primary Care Provider [phone] [facility] Tracy Attending Provider [phone] [facility] Tracy Referring Provider STEVO Wu Attending Provider Unava ilable Bullimore, EMERGENCY DEPARTMENT TECHNICIAN-BC Kristina E Emergency [facility]available Bullimore, Kristina E Attending Unavailable Bullimore, Kristina E Admitting Unavailable Windnagel, Tracy Attending Unavailable Windnagel, Tracy Admitting Unavailable Fawwad, Meyer Primary Care Unavailable Fawwad, Meyer Primary Care Unavailable Windnagel, Tracy Referring Unavailable Windnagel, Tracy Attending Unavailable Windnagel, Tracy Admitting Unavailable Fawwad, Meyer Primary Care Unavailable Windnagel, Tracy Attending Unavailable Windnagel, Tracy Admitting Unavailable Milton Valentine II Attending Unavailabl e Milton Valentine II Admitting Unavailabl e Carmen Beltran Primary Care Un available Fawwad, [facility] Primary Care Unavailable Bullimore, Kristina E Attending Unavailable Bullimore, Kristina E Admitting Unavailable FAWMATIAS, MEYER Attending Unavailable DANNI MANSFIELD Referring Unavailable FawShaikh finley MD Primary Care Provider Allergies Allergy Classification Reported Allergen(s) Allergy Type Date of Onset Reaction(s) Facility (9 sources) Ibuprofen Drug Allergy 3 Anaphylaxis [id number] Other (9 sources) NSAIDs Propensity to adverse reactions 3 Anaphylaxis, Swelling, Shortness of breath [facility] (17 sources) Non-steroidal anti-inflammato ry agent; Translations: [NSAIDS (NON-STEROIDAL ANTI-INFLAMMATO RY DRUG)] Drug Allergy 3 Anaphylaxis, Other: See Comments, Shortness of Breath, Swelling [facility] (5 sources) NSAIDS (Non-Steroidal Anti-Inflamma; Translations: [NSAIDS (Non-Steroidal Anti-Inflamma] Allergy to substance 3 Anaphylaxis [facility] (1 source) NSAIDs Drug allergy (disorder) [facility] (1 source) ALLERGIES NOT ON FILE; Translations: [ALLERGIES NOT ON FILE] Propensity to adverse reactions (disorder) [facility] Repository (1 source) Aluminum aspirin Drug Allergy 3 Unknown [facility] (1 source) Naproxen Drug Allergy 3 Anaphylaxis [facility] (1 source) oxaprozin Drug Allergy 3 Unknown [facility] (1 source) traMADol Drug Allergy 3 [facility] Medications Current Medications Medication Drug Class(es) Dates Sig (Normalized) Sig (Original) [id number] 200 actuat albuterol 0.09 mg/actuat metered dose inhaler (20 sources) beta2-Adrenergic Agonist Start: 11-08-2023 End: 12-08-2023 take 2 puff(s) by inhalation every four hours for wheezing albuterol HFA 90 mcg/act inhaler Indications: Moderate persistent asthma without complication (CMS/HCC) Inhale 2 puffs every 4 (four) hours if needed for wheezing 8.5 g 3 11/08/2023 12/08/2023 Active Start: 01-27-2023 Albuterol Sulf ate (Ventolin Hfa) 90 mcg/actuation HFA aerosol inhaler Active INHALATION January 26, 2023 11:00pm Start: 08-28-2022 take 2 puff(s) by mo uth every four to six hours as needed for wheezing VENTOLIN HFA 90 mcg/actuation inhaler INHALE 2 PUFFS BY MOUTH EVERY 4 TO 6 HOURS NEEDED FOR SHORTNESS OF BREATH OR WHEEZING 0 08/28/2022 Active Start: 04-12-2019 take 2 puff(s) by in halation every six hours as needed ProAir HFA 108 (90 Base) MCG/ACT 2 puffs as needed Inhalation every 6 hrs for 30 days Apr, Not-Taking Start: 03-17-2019 take 2 puff(s) by in halation every four to six hours as needed ProAir HFA 108 (90 Base) MCG/ACT 2 puffs as needed Inhalation every 4-6 hrs for 7 days Mar, Not-Taking ProAir HFA Not-T aking/PRN ProAir HFA Not-T aking Comment on above: INHALE 2 PUFFS BY MO UTH EVERY 4 TO 6 HOURS NEEDED FOR SHORTNESS OF BREATH OR WHEEZING amLODIPine 5 mg oral tablet (1 source) Dihydropyridine Calcium Channel Roland Start: 10-29-19 End: 01-27-20 24 take 1 tablet by mouth in the morning amLODIPine (Norvasc) 5 MG tablet Indications: Primary hypertension (CMS/HCC) Take 1 tablet (5 mg) by mouth in the morning. 90 tablet 0 10/29/2023 01/27/2024 Active baclofen 20 mg oral tablet (20 sources) gamma-Aminobutyric Acid-ergic Agonist Start: 01-28-20 Baclofen Active MG TABLET January 26, 2023 11:00pm take 1 tablet by mouth three loren es daily Baclofen 10 MG TAKE 1 TABLET BY MOUTH THREE TIMES DAILY Oral for 30 Days Active take 1 tablet by mouth three loren es daily baclofen (LIORESAL) 20 mg tablet Take 20 mg by mouth three times daily. 0 Active Comment on above: Take 20 mg by mouth three times daily. cyclobenzaprine (1 source) Muscle Relaxant Flexeril Active 0.5 ml dulaglutide 1.5 mg/ml auto-injector (11 sources) GLP-1 Receptor Agonist Start: 01-27-2023 Dulaglutide (Trulicity) 0.75 mg/0.5 mL pen injector Active MG SUBCUT January 26, 2023 11:00pm Start: 01-04-2023 TRULICITY 0.75 mg/0.5 mL pen injector DULoxetine 60 mg delayed release oral capsule (20 sources) Serotonin and Norepinephrine Reuptake Inhibitor Start: 01-27-2023 Duloxetine Active MG PO January 26, 2023 11:00pm Start: 09-26-2022 take 1 capsule by mo [facility] once daily DULoxetine (CYMBALTA) 60 mg capsule Take 60 mg by mouth once daily. 0 09/26/2022 Active Comment on above: Take 60 mg by mouth once daily. gabapentin 400 mg oral capsule (20 sources) Anti-epileptic Agent Start: 01-27-2023 Gabapentin Active MG January 26, 2023 11:00pm Start: 10-19-2022 End: 01-17-2023 take 1 capsule by mouth three times daily gabapentin (NEURONTIN) 400 mg capsule Take 1 capsule by mouth three times daily for 90 days. 90 capsule 2 10/19/2022 Active Start: 10-02-2022 End: 10-19-2022 take 1 capsule by mouth three times daily gabapentin (NEURONTIN) 300 mg capsule Take 300 mg by mouth three times daily. 0 10/02/2022 10/19/2022 Discontinued Comment on above: Take 1 capsule by mo uth three times daily for 90 days. Take 300 mg by mouth three times daily. glipiZIDE er 10 mg 24 hr extended release oral tablet (9 sources) Sulfonylurea Start: 07-19-2023 take 1 tablet by mouth every twenty-four hours in the morning glipiZIDE XL (Glucotrol XL) 10 MG 24 hr tablet Take 10 mg by mouth in the morning. 0 07/19/2023 Active Start: 01-27-2023 Glipizide Acti ve MG PO January 26, 2023 11:00pm glipiZIDE 5 MG T PHILLIP 1 TABLET BY MOUTH ONCE DAILY WITHIN 30 MINUTES OF A MEAL Oral for 30 Days Active lidocaine 0.05 mg/mg medicated patch (1 source) Antiarrhythmic, Amide Local Anesthetic Start: 08-24-2023 apply 1 dose topically once daily Lidocaine Active 1 PATCH TOPICAL Daily August 24, 2023 12:00am leave on most painful area for up to 12 hrs Loratadine (1 source) Claritin Active Magnesium (7 sources) Start: 09-26-2022 Magnesium 400 MG as directed Orally Sep, Active metFORMIN hydrochloride 1000 mg oral tablet (16 sources) Biguanide Start: 10-24-2023 End: 04-21-2024 take 1 tablet by mouth in the morning metFORMIN (Glucophage) 1000 MG tablet Indications: Type 2 diabetes mellitus without complication, without long-term current use of insulin ([facility]) Take 1 tablet (1,000 mg) by mouth in the morning and 1 tablet (1,000 mg) in the evening. Take with meals. 180 tablet 1 10/24/2023 04/21/2024 Active Start: 01-27-2023 Metformin Acti ve MG TABLET January 26, 2023 11:00pm Start: 01-09-2023 take 1 tablet by nirav th every twelve hours metFORMIN (GLUCOPHAGE) 500 mg tablet Take 500 mg by mouth q 12 HR. 0 01/09/2023 Active Comment on above: Take 500 mg by mouth q 12 HR. methocarbamol 500 mg oral tablet (4 sources) Muscle Relaxant Methocarbamol 50 0 MG TAKE 1 TABLET BY MOUTH 4 TIMES DAILY FOR 3 DAYS Oral for 3 Days Active methylPREDNISolone (1 source) Corticosteroid Start: 02-10-20 End: 02-15-20 methylPREDNISolone (MEDROL, GUSTABO,) 4 mg Dose-Pack Use as directed 21 tablet 0 02/09/2023 02/14/2023 Active Comment on above: Use as directed Mometasone-Formoterol (Dulera) 100-5 mcg/actuation HFA aerosol inhaler (4 sources) Start: 01-28-20 Mometasone-Formoterol (Dulera) 100-5 mcg/actuation HFA aerosol inhaler Active INHALATION January 26, 2023 11:00pm Start: 01-27-2023 Mometasone-For moterol (Dulera) 100-5 mcg/actuation HFA aerosol inhaler Active INHALATION January 27, 2023 12:00am OXcarbazepine 300 mg oral tablet (1 source) Anti-epileptic Agent Start: 08-20-2023 take 1 tablet by mouth in the morning OXcarbazepine (Trileptal) 300 MG tablet Take 300 mg by mouth in the morning and 300 mg before bedtime. 0 08/20/2023 Active oxyCODONE hydrochloride 5 mg oral tablet (5 sources) Opioid Agonist Start: 10-23-2023 End: 11-22-2023 take 1 tablet by mouth every six hours for pain oxyCODONE (Roxicodone) 5 MG immediate release tablet Indications: Chronic neck and back pain Take 1 tablet (5 mg) by mouth every 6 (six) hours if needed for severe pain 120 tablet 0 10/23/2023 11/22/2023 Active Start: 01-27-2023 Oxycodone Acti ve MG TABLET January 26, 2023 11:00pm phentermine hydrochloride 37.5 mg oral tablet (1 source) Sympathomimetic Amine Anorectic Start: 10-16-2023 End: 11-15-2023 take 40-44.9 tablets by mouth before mealtime phentermine (Adipex-P) 37.5 MG tablet Indications: Class 3 severe obesity due to excess calories with serious comorbidity and body mass index (BMI) of 40.0 to 44.9 in adult (CMS/[facility]) Take 1 tablet (37.5 mg) by mouth in the morning. Take before meals. 30 tablet 0 10/16/2023 11/15/2023 Active pregabalin 200 mg oral capsule (1 source) Start: 08-23-2023 take 1 capsule by mouth in the morning, then take 1 capsule by mouth in the evening, then take 1 capsule by mouth at bedtime pregabalin (Lyrica) 200 MG capsule Take 200 mg by mouth in the morning and 200 mg in the evening and 200 mg before bedtime. 0 08/23/2023 Active rOPINIRole 4 mg oral tablet (20 sources) Nonergot Dopamine Agonist Start: 09-18-2023 End: 12-17-2023 take 1 tablet by mouth at bedtime rOPINIRole (Requip) 4 MG tablet Indications: RLS (restless legs syndrome) Take 1 tablet (4 mg) by mouth at bedtime 30 tablet 2 09/18/2023 12/17/2023 Active Start: 01-27-2023 Ropinirole Act cielo MG TABLET January 26, 2023 11:00pm ropinirole HCl ( ROPINIROLE ORAL) Requip Active 0 Active Requip Active Comment on above: Requip Active sertraline 50 mg oral tablet (1 source) Serotonin Reuptake Inhibitor Start: 3 take 1 tablet by mouth in the morning sertraline (Zoloft) 50 MG tablet Take 50 mg by mouth in the morning. 0 08/22/2023 Active SITagliptin 100 mg oral tablet (1 source) Dipeptidyl Peptidase 4 Inhibitor Start: 3 take 1 tablet by mouth in the morning Januvia 100 MG tablet Take 100 mg by mouth in the morning. 0 09/10/2023 Active tiZANidine 4 mg oral tablet (1 source) Central alpha-2 Adrenergic Agonist Start: 3 take 1 tablet by mouth every eight hours as needed tiZANidine (Zanaflex) 4 MG tablet Take 1 tablet by mouth every 8 (eight) hours if needed 0 09/18/2023 Active traZODone hydrochloride 50 mg oral tablet (6 sources) Serotonin Reuptake Inhibitor Start: 3 End: 3 take 1 tablet by mouth once daily at bedtime traZODone (DESYREL) 50 mg tablet Take 1 tablet by mouth daily at bedtime. 30 tablet 1 07/06/2023 09/04/2023 Active Start: 05-02-2023 take 1 tablet by nirav th at bedtime traZODone (Desyrel) 100 MG tablet Take 1 tablet by mouth at bedtime 0 05/02/2023 Active Start: 04-17-2023 End: 06-16-2023 take 1 tablet by mouth once daily at bedtime traZODone (DESYREL) 50 mg tablet Take 1 tablet by mouth daily at bedtime. 30 tablet 1 04/17/2023 06/16/2023 Active Start: 02-13-2023 End: 04-14-2023 take 1 tablet by mouth once daily at bedtime traZODone (DESYREL) 50 mg tablet Take 1 tablet by mouth daily at bedtime. 30 tablet 1 02/13/2023 04/14/2023 Active Comment on above: Take 1 tablet by nirav th daily at bedtime. Completed/Discontinued Medications Medication Drug Class(es) Dates Sig (Normalized) Sig (Original) amoxicillin 875 mg / clavulanate 125 mg oral tablet (13 sources) Penicillin-class Antibacterial Start: 03-24-2019 End: 12-09-2022 take 1 tablet by mouth every twelve hours Amoxicillin-Pot Clavulanate 875-125 MG 1 tablet Orally every 12 hrs for 7 days Mar, Not-Taking/PRN Comment on above: Take by mouth q 12 H R. 60 actuat budesonide 0.09 mg/actuat dry powder inhaler (8 sources) Corticosteroid Start: 03-24-2019 take 2 puff(s) by inhalation twice daily as needed Pulmicort Flexhaler 90 MCG/ACT 2 puffs Inhalation Twice a day for 30 days Mar, Not-Taking/PRN codeine phosphate 2 mg/ml / guaiFENesin 20 mg/ml oral solution (8 sources) Opioid Agonist Start: 03-24-2019 take 10 mL by mouth every four to six hours as needed Cheratussin AC 100-10 MG/5ML 10 ml Orally every 4-6 hrs for 7 days Mar, Not-Taking/PRN 60 actuat formoterol fumarate 0.005 mg/actuat / mometasone furoate 0.1 mg/actuat metered dose inhaler (20 sources) Corticosteroid, beta2-Adrenergic Agonist Start: 09-27-2022 take 2 puff(s) by inhalation twice daily DULERA 100-5 mcg/actuation inhaler Inhale 2 Puffs as instructed twice daily. 0 09/27/2022 Active take 2 puff(s) by mouth twice da booker Dulera 100-5 MCG/ACT INHALE 2 PUFFS BY MOUTH TWICE DAILY Inhalation for 30 Days Active take 2 puff(s) by mouth twice da booker Dulera 100-5 MCG/ACT INHALE 2 PUFFS BY MOUTH TWICE DAILY Inhalation for 30 Days Active Comment on above: Inhale 2 Puffs as in structed twice daily. Multivitamin preparation (8 sources) Multivitamin Not -Taking/PRN Multivitamin Not -Taking predniSONE 20 mg oral tablet (8 sources) Start: 03-24-2019 predniSONE 20 MG 3 tablets for 5 days, then 1 tablet for 5 days Orally Once a day for 10 days Mar, Not-Taking/PRN ProAir HFA 108 (90 Base) MCG/ACT (14 sources) Start: 04-12-2019 take 2 puff(s) by inhalation every six hours as needed ProAir HFA 108 (90 Base) MCG/ACT 2 puffs as needed Inhalation every 6 hrs for 30 days Apr, Not-Taking/PRN Start: 04-12-2019 take 2 puff(s) by in halation every six hours as needed ProAir HFA 108 (90 Base) MCG/ACT 2 puffs as needed Inhalation every 6 hrs for 30 days Apr, Not-Taking Start: 03-17-2019 take 2 puff(s) by in halation every four to six hours as needed ProAir HFA 108 (90 Base) MCG/ACT 2 puffs as needed Inhalation every 4-6 hrs for 7 days Mar, Not-Taking/PRN Start: 03-17-2019 take 2 puff(s) by in halation every four to six hours as needed ProAir HFA 108 (90 Base) MCG/ACT 2 puffs as needed Inhalation every 4-6 hrs for 7 days Mar, Not-Taking valACYclovir 1000 mg oral tablet (4 sources) Herpesvirus Nucleoside Analog DNA Polymerase Inhibitor, Herpes Simplex Virus Nucleoside Analog DNA Polymerase Inhibitor, Herpes Zoster Virus Nucleoside Analog DNA Polymerase Inhibitor Start: 08-02-2023 take 1 tablet by mouth three times daily as needed valACYclovir HCl 1 GM 1 tablet Orally Three time a day for 7 days Jul, Not-Taking/PRN Start: 08-02-2023 take 1 tablet by nirav th three times daily valACYclovir HCl 1 GM 1 tablet Orally Three time a day for 7 days Jul, Not-Taking Problems Active Problems Problem Classification Problem Date Documented Date Episodic/Chronic Asthma (19 sources) Mild asthma; Translations: [Unspecified asthma with (acute) exacerbation] Onset: 03-05-2023 11-08-2023 Chronic Diabetes mellitus with complications (5 sources) Type 2 diabetes mellitus with hyperglycemia; Translations: [Type II diabetes mellitus uncontrolled] Onset: 12-21-2022 Chronic Diabetes mellitus without complication (2 sources) Type 2 diabetes mellitus without complications; Translations: [Type 2 diabetes mellitus without complication] Onset: 03-05-2023 09-24-2023 Chronic Disorders of lipid metabolism (1 source) Hyperlipidemia; Translations: [Hyperlipidemia, unspecified] Onset: 09-24-2023 09-24-2023 Chronic Esophageal disorders (1 source) Gastro-esophageal reflux disease without esophagitis; Translations: [GERD WITHOUT ESOPHAGITIS] Onset: 03-05-2023 Chronic Essential hypertension (1 source) Essential hypertension; Translations: [Essential (primary) hypertension] Onset: 10-16-2023 10-16-2023 Chronic Joint disorders and dislocations; trauma-related (9 sources) Derangement of right knee; Translations: [Unspecified internal derangement of right knee] Chronic Miscellaneous mental health disorders (2 sources) Pain disorder with psychological factor; Translations: [Pain disorder with related psychological factors] Onset: 12-28-2022 Chronic Osteoarthritis (20 sources) Arthritis of knee; Translations: [Unilateral primary osteoarthritis, right knee] Onset: 10-30-2022 Chronic Other aftercare (1 source) manager terminal (current) use of oral hypoglycemic drugs; Translations: [WIND ENERGY TECHNICIAN USE ORAL HYPOGLYCEMIC DX] Onset: 03-05-2023 Episodic Other connective tissue disease (1 source) Trochanteric bursitis, right hip Episodic Other diseases of veins and lymphatics (8 sources) Peripheral venous insufficiency; Translations: [Venous insufficiency (chronic) (peripheral)] Episodic Other hereditary and degenerative nervous system conditions (1 source) Restless legs; Translations: [Restless legs syndrome] Onset: 09-24-2023 09-24-2023 Chronic Other nervous system disorders (5 sources) Chronic pain syndrome; Translations: [Chronic pain syndrome] Onset: 03-30-2023 Chronic Other nervous system disorders (3 sources) Other chronic pain; Translations: [OTHER CHRONIC PAIN] Onset: 10-30-2022 Chronic Other nervous system disorders (1 source) Chronic pain syndrome; Translations: [Chronic pain syndrome] Onset: 02-13-2023 Chronic Other non-traumatic joint disorders (1 source) Polyarthropathy; Translations: [Polyarthritis, unspecified] Onset: 09-24-2023 09-24-2023 Chronic Other non-traumatic joint disorders (1 source) Pain in right hip Episodic Other nutritional; endocrine; and metabolic disorders (1 source) Metabolic syndrome X; Translations: [Metabolic syndrome X] Onset: 09-24-2023 09-24-2023 Chronic Other nutritional; endocrine; and metabolic disorders (1 source) Severe obesity; Translations: [Morbid (severe) obesity due to excess calories] Onset: 10-16-2023 10-16-2023 Chronic Other screening for suspected conditions (not mental disorders or infectious disease) (1 source) Encounter for screening for lipoid disorders; Translations: [ENC SCREENING FOR LIPOID DISORDERS] Onset: 12-29-2022 Episodic Other upper respiratory infections (1 source) Chronic sinusitis, unspecified; Translations: [CHRONIC SINUSITIS UNSPECIFIED] Onset: 10-24-2022 Chronic Residual codes; unclassified (1 source) Sleep pattern disturbance; Translations: [Sleep disorder, unspecified] Episodic Screening and history of mental health and substance abuse codes (1 source) Personal history of nicotine dependence; Translations: [PERSONAL HISTORY OF NICOTINE DEPEND] Onset: 03-05-2023 Episodic Spondylosis; intervertebral disc disorders; other back problems (20 sources) Disorder of lumbar disc; Translations: [Unspecified thoracic, thoracolumbar and lumbosacral intervertebral disc disorder] Onset: 01-24-2023 Chronic Spondylosis; intervertebral disc disorders; other back problems (20 sources) Chronic low back pain; Translations: [Chronic bilateral low back pain without sciatica] Onset: 03-03-2023 Episodic Spondylosis; intervertebral disc disorders; other back problems (1 source) Spondylosis; intervertebral disc disorders; other back problems; Translations: [Other spondylosis, lumbar region] Onset: 07-13-2023 Sprains and strains (5 sources) Low back strain; Translations: [Strain of muscle, fascia and tendon of lower back, initial encounter] Onset: 07-14-2022 01-27-2023 Episodic Unclassified (1 source) APPOINTMENT CANCELLED Unclassified (1 source) WIND ENERGY TECHNICIAN INJECT NONINSULN ANTIDIAB; Translations: [WIND ENERGY TECHNICIAN INJECT NONINSULN ANTIDIAB] Onset: 03-05-2023 Unclassified (3 sources) LOW BACK PAIN, UNSPECIFIED; Translations: [LOW BACK PAIN, UNSPECIFIED] Onset: 08-22-2022 Unclassified (1 source) Chronic bilateral low back pain without sciatica; Translations: [Chronic bilateral low back pain without sciatica] Onset: 11-15-2022 Unclassified (1 source) Chronic right-sided low back pain without sciatica; Translations: [Chronic right-sided low back pain without sciatica] Onset: 10-30-2022 Unclassified (1 source) Other low back pain; Translations: [Other low back pain] Onset: 01-27-2023 Unclassified (1 source) Pain in right hip; Translations: [Pain in right hip] Onset: 09-28-2022 Viral infection (1 source) Zoster without complications Episodic Past or Other Problems Problem Classification Problem Date Documented Da te Episodic/Chronic E Codes: Natural/environment (1 source) Other and unspecified overexertion or strenuous movements or postures, initial encounter; Translations: [OTH AND UNS OVREXRT/STRN MVMT/POS INT] Onset: 07-14-2022 Episodic Other aftercare (1 source) Other senior living (current) drug therapy; Translations: [OTH WIND ENERGY TECHNICIAN CURRENT DRUG THERAPY] Onset: 10-24-2022 Episodic Other non-traumatic joint disorders (4 sources) Pain in right knee; Translations: [PAIN IN RIGHT KNEE] Onset: 07-13-2022 Episodic Other skin disorders (4 sources) Localized swelling, mass and lump, head; Translations: [LOCALIZED SWELLING MASS AND LUMP HEAD] Onset: 10-23-2022 Episodic Unclassified (1 source) LOW BACK PAIN, UNSPECIFIED; Translations: [LOW BACK PAIN, UNSPECIFIED] Onset: 08-18-2022 Results Test Name Value Interpretation Reference Range Facility Automated erythrocytes count in urine sediment (number/area)Ordered By: Kristina Delgado on 08-24-2023 RBC Auto (Urine sed) [#/Area] None seen [HPF] 0-4 [facility] Automated leukocytes count i n urine sediment (number/area)Ordered By: Kristina Delgado on 08-24-2023 WBC Auto (Urine sed) [#/Area] None seen [HPF] 0-4 [facility] Bilirubin Test strip Ql (U)O rdered By: Kristina Delgado on 08-24-2023 Bilirubin Ql (U) Negative Negative [facility] CT lumbar spine wo conon CT lumbar spine wo con [facility] [place] [address] [place] [address] [address] Scan Report Signed Patient: Bhavesh Cárdenas MR#: [id number] : 1975 Acct:[id number] Age/Sex: 47 / M ADM Date: 08/24/23 Loc: ER Room: Type: [facility] ER Attending Dr: Copies to: DU Cooper Ordering Provider: DU Cooper Date of Service: 08/24/23 CT/CT lumbar spine wo con: pop in back CT LUMBAR SPINE WITHOUT CONTRAST WITH 3-D RECONSTRUCTIONS COMPARISON: Plain films 01/27/2013 3 and MRI 06/21/2023 CLINICAL DATA: Patient felt a pop at the low back. Low back and abdominal pain radiating to the legs and difficulty ambulating. Spiral images were obtained through the lumbar spine without contrast. Sagittal, coronal and 3-D volume rendered reconstructions were reviewed. This CT exam was performed using one or more following dose reduction techniques: Automated exposure control, adjustment of the mA and/or kV according to patient size, or use of iterative reconstruction technique. Alignment is maintained on the sagittal reconstructions. No acute compression fractures are identified. There is no disproportionate disc space narrowing though there is vacuum phenomenon at the lumbosacral junction. There is minor endplate spurring and facet disease. At L2-3 and L3-4 , there is minimal annular disc bulging with subtle thecal sac effacement and slight inferior foraminal encroachment. There is mild annular disc bulging at L4-5. There is mild thecal sac effacement and mild inferior foraminal encroachment. At the lumbosacral junction there is disco- osteophytic bulging, greater toward the neural foramen. There is no significant thecal sac effacement. There is moderate to severe encroachment at the neural foramen on both sides. The SI joints are intact. The remainder of the bony pelvis, sacrum and proximal femora show no acute findings. There are no paraspinal soft tissue abnormalities. No obstructive uropathy or stone disease is seen. There are a few sigmoid diverticula. CT/CT lumbar spine wo con IMPRESSION: CONTINUED DISCOVERTEBRAL DEGENERATIVE CHANGES, GREATEST AT L4-5 AND THE LUMBOSACRAL JUNCTION, DESCRIBED. NO ACUTE BONY FINDINGS. Impression dictated by: Polina Cabrera M.D.08/24/2023 3:01 PM Dictation Location: [place] [address] Transcribed By: [facility] 08/24/23 1501 Dictated By: Polina Cabrera MD 08/24/23 1453 Signed By: 08/24/23 1501 Normal [facility] Color Auto (U)Ordered By: Ly Delgado on 08-24-2023 Color (U) Yellow Yellow [facility] Dipstick and Microscopicon 1 10-24-2022 Appearance (U) Cloudy Critically abnormal Clear [facility] Comment on above: Order Comment: Name Collection Type:: Clean-Voided Midstream Performed By: #### A DDONUAPLUS #### [facility] [address] [place] [address] Bacteria,Urine None Seen Normal None Seen [facility] Comment on above: Order Comment: Name Collection Type:: Clean-Voided Midstream Performed By: #### A DDONUAPLUS #### [facility] [address] [place] [address] [place] Bilirubin,Urine Negative Normal Negative [facility] Comment on above: Order Comment: Name Collection Type:: Clean-Voided Midstream Performed By: #### A DDONUAPLUS #### [facility] [address] [place] [address] [place] Color (U) Yellow Normal Yellow [facility] Comment on above: Order Comment: Name Collection Type:: Clean-Voided Midstream Performed By: #### A DDONUAPLUS #### [facility] [address] [place] [address] [place] Glucose Ql (U) 100 mg/dL High Normal [facility] Comment on above: Order Comment: Name Collection Type:: Clean-Voided Midstream Performed By: #### A DDONUAPLUS #### [address] Hyaline Casts,Urine None Seen Normal 0-8 [facility] Comment on above: Order Comment: Name Collection Type:: Clean-Voided Midstream Result Comment: PERF ORMED BY: [place] [address] PATHOLOGIST [employer] CHRISTY M.D. Performed By: #### A DDONUAPLUS #### [address] Ketones Ql (U) Negative Normal Negative [facility] Comment on above: Order Comment: Name Collection Type:: Clean-Voided Midstream Performed By: #### A DDONUAPLUS #### [address] Leukocyte esterase Test strip Ql (U) Negative Normal Negative [facility] Comment on above: Order Comment: Name Collection Type:: Clean-Voided Midstream Performed By: #### A DDONUAPLUS #### [address] Nitrite,Urine Negative Normal Negative [facility] Comment on above: Order Comment: Name Collection Type:: Clean-Voided Midstream Performed By: #### A DDONUAPLUS #### [address] Occult Blood,Urine Negative Normal Negative [facility] Comment on above: Order Comment: Name Collection Type:: Clean-Voided Midstream Result Comment: PERF ORMED BY: [place] [address] PATHOLOGIST [employer] CHRISTY M.D. Performed By: #### A DDONUAPLUS #### [place] [address] [place] pH (U) 6.0 [pH] Normal 5.0-9.0 [facility] Comment on above: Order Comment: Name Collection Type:: Clean-Voided Midstream Performed By: #### A DDONUAPLUS #### [place] [address] [place] Protein,Urine Negative Normal Negative [facility] Comment on above: Order Comment: Name Collection Type:: Clean-Voided Midstream Performed By: #### A DDONUAPLUS #### [facility] [address] [place] [address] RBC,Urine None Seen Normal 0-4 [facility] Comment on above: Order Comment: Name Collection Type:: Clean-Voided Midstream Performed By: #### A DDONUAPLUS #### [facility] [address] [place] [address] Specificy [place],Urine 1.013 Normal 1.001-1.030 [facility] Comment on above: Order Comment: Name Collection Type:: Clean-Voided Midstream Performed By: #### A DDONUAPLUS #### [facility] [address] [place] [address] Squamous Epithelial Cell,Urine None Seen Normal 0-2 [facility] Comment on above: Order Comment: Name Collection Type:: Clean-Voided Midstream Performed By: #### A DDONUAPLUS #### [facility] [address] [place] [address] Urobilinogen,Urine Normal Normal Normal [facility] Comment on above: Order Comment: Name Collection Type:: Clean-Voided Midstream Performed By: #### A DDONUAPLUS #### [facility] [address] [place] [address] WBC,Urine None Seen Normal 0-4 [facility] Comment on above: Order Comment: Name Collection Type:: Clean-Voided Midstream Performed By: #### A DDONUAPLUS #### [facility] [address] [place] [address] Ketones Auto test strip (U) [Mass/Vol]Ordered By: Kristina Delgado on 08-24-2023 Ketones (U) [Mass/Vol] Negative Negative [facility] Laboratory - UrinalysisOrder ed By: Kristina Delgado on 08-24-2023 Hyaline casts LM Ql (Urine sed) None seen [LPF] 0-8 [facility] Nitrite Test strip Ql (U)Ord ered By: Kristina Delgado on 08-24-2023 Nitrite Ql (U) Negative Negative [facility] Protein Auto test strip (U) [Mass/Vol]Ordered By: Kristina Delgado on 08-24-2023 Protein (U) [Mass/Vol] Negative Negative [facility] Specific gravity Auto test s trip (U) [Rel density]Ordered By: Kristina Delgado on 08-24-2023 Specific gravity (U) [Rel density] 1.013 1.001-1.030 [facility] Squamous epithelial cells de tection in urine sediment by light microscopyOrdered By: Kristina Delgado on 08-24-2023 Epithelial cells.squamous LM Ql (Urine sed) None seen [HPF] 0-2 [facility] Urine bacteria detection by automated methodOrdered By: Kristina Delgado on 08-24-2023 Bacteria Auto Ql (U) None seen None Seen [facility] Urine clarity by refractomet ry automatedOrdered By: Kristina Delgado on 08-24-2023 Clarity Refractometry automated (U) Cloudy Clear [facility] Urine glucose measurement by automated test strip (mass/volume)Ordered By: Kristina Delgado on 08-24-2023 Glucose Auto test strip (U) [Mass/Vol] 100 mg/dL Normal [facility] Urine hemoglobin detection b y automated test stripOrdered By: Kristina Delgado on 08-24-2023 Hemoglobin Auto test strip Ql (U) Negative Negative [facility] Urine leukocyte esterase det ection by automated test stripOrdered By: Kristina Delgado on 08-24-2023 Leukocyte esterase Auto test strip Ql (U) Negative Negative [facility] Urobilinogen Auto test strip (U) [Mass/Vol]Ordered By: Kristina Delgado on 08-24-2023 Urobilinogen (U) [Mass/Vol] Normal mg/dL Normal [facility] pH Auto test strip (U)Ordere d By: Kristina Delgado on 08-24-2023 pH (U) 6.0 [pH] 5.0-9.0 [facility] MR lumbar spine wo conon MR lumbar spine wo con [address] [place] [address] MRI Report Signed Patient: Bhavesh Cárdenas MR#: [id number] : 1975 Acct:[id number] Age/Sex: 47 / M ADM Date: 06/21/23 Loc: MR Room: Type: [facility] Attending Dr: Tracy Wu Adult [employer] Copies to: KINJAL William Ordering Provider: KINJAL William Date of Service: 06/21/23 MR/MR lumbar spine wo con: M47.896 R53.1 R20.2 MR lumbar spine wo con 06/21/2023 9:25 PM SIGNS AND SYMPTOMS: Right leg weakness, low back pain PROTOCOL: Multiplanar multisequence MR images of the lumbar spine were obtained without IV contrast COMPARISON: 08/18/2022 FINDINGS: The bones of the lumbar spine are in anatomic alignment. There is preservation of vertebral body heights. There is disc desiccation with mild disc height loss at L4-5. There is disc desiccation with moderate disc height loss at L5-S1. Modic type II fatty endplate degenerative changes are noted at L5-S1. Benign-appearing hemangiomas are noted at T12 and L1. The conus terminates at the L1-L2 intervertebral disc level. No epidural or paraspinous fluid collection is appreciated. At T12-L1: There is a normal disc, central canal, and neural foramen. At L1-L2: There is a normal disc, central canal, and neural foramen. At L2-L3: There is a normal disc, central canal, and neural foramen. At L3-L4: There is a normal disc, central canal, and neural foramen. At L4-L5: There is a circumferential disc bulge with facet hypertrophy. There is mild narrowing of spinal canal with mild bilateral neural foraminal narrowing. This is similar to the prior exam. At L5-S1: There is a circumferential disc bulge with facet hypertrophy. There is mild spinal canal stenosis with moderate to severe left and severe right neural foraminal narrowing. Is mass effect on the exiting L5 nerve roots, right greater than left. This is similar to the prior exam. MR/MR lumbar spine wo con IMPRESSION: At L4-L5: There is a circumferential disc bulge with facet hypertrophy. There is mild narrowing of spinal canal with mild bilateral neural foraminal narrowing. This is similar to the prior exam. At L5-S1: There is a circumferential disc bulge with facet hypertrophy. There is mild spinal canal stenosis with moderate to severe left and severe right neural foraminal narrowing. Is mass effect on the exiting L5 nerve roots, right greater than left. This is similar to the prior exam. Impression dictated by: Clayton Joe M.D.06/22/2023 1:14 PM Dictation Location: [place] [address] Transcribed By: WENDIE 06/22/23 1314 Dictated By: Clayton Joe II, MD 06/22/23 1308 Signed By: 06/22/23 1314 [facility] MR thoracic spine wo conon 0 05-16-2023 MR thoracic spine wo con [facility] [place] [address] MRI Report Signed Patient: Bhavesh Cárdenas MR#: [id number] : 1975 Acct:[id number] Age/Sex: 47 / M ADM Date: 05/16/23 Loc: Room: Type: [facility] Attending Dr: Tracy Wu Adult [employer] Copies to: KINJAL William Ordering Provider: KINJAL William Date of Service: 05/16/23 MR/MR cervical spine wo con: M47.896 ([id number]) MR/MR thoracic spine wo con: M47.896 CLINICAL DATA: Chronic worsening back and neck pain EXAMINATION: MRI OF THE CERVICAL SPINE WITHOUT CONTRAST COMPARISON: None TECHNIQUE: Multiecho imaging was performed in the sagittal and axial plane without contrast administration. FINDINGS: There is some motion artifact. Alignment is maintained on the sagittal images. There are no acute compression fractures or marrow edema. There is a normal cervicomedullary junction. The cord is normal in caliber and signal intensity throughout its imaged course. There are few small shotty cervical lymph nodes. At C2-3, there is no disc disease or stenosis. At C3-4, there is minor disco-osteophytic bulging centrally with mild thecal sac effacement. No foraminal stenosis is noted. At C4-5, there is no disc bulge or herniation. No central or foraminal stenosis is noted. At C5-6, there is minimal annular disc bulging with subtle thecal sac effacement. The neural foramen appear patent. At C6-7 and the cervicothoracic junction, no MRI abnormalities are seen. MR/MR cervical spine wo con IMPRESSION: MINIMAL DEGENERATIVE CHANGES, WITHOUT SIGNIFICANT STENOSIS. MRI THORACIC SPINE WITHOUT CONTRAST COMPARISON: 12/27/2021 Multiecho imaging in the axial and sagittal plane was performed without contrast. Alignment is maintained on the sagittal sequences. There are no acute compression fractures or marrow edema. There is no disproportionate disc space narrowing. There is no prominent disc bulge or focal disc herniation. No central or foraminal stenosis is identified. No paraspinal soft tissue abnormalities are noted. IMPRESSION: NO SIGNIFICANT MRI FINDINGS. Impression dictated by: Polina Cabrera M.D.05/16/2023 9:00 PM Dictation Location: [place] [address] Transcribed By: [facility] 05/16/232099 Dictated By: Polina Cabrera MD 05/16/232049 Signed By: 05/16/232099 [facility]ora 03-28-2023 SWAPNA Telephone (NEPREM) BHAVESH CÁRDENAS ([id number]) 1975 M Date Time Provider Department 03/28/23 KB LORENZO During your visit today, we recorded the following information about you: Lori Woody RN 03/28/2023 2:37 PM Signed Weight entered in Free Flow Power Allergies As of Date: 03/28/2023 Noted Allergy Reaction NSAIDS (NON-STEROIDAL ANTI-INFLAM* 3 10 - Anaphylaxis 14 - Other: See Comments 12 - Shortness of Breath 7 - Swelling Date Reviewed: 01/24/2023 Reviewed by: Blank Moya JOHNATHAN - Fully Assessed Reason for Visit: Electronic Communication [890] Prescriptions as of 03/28/2023 - traZODone (DESYREL) 50 mg tablet Take 1 tablet by mouth daily at bedtime. - metFORMIN (GLUCOPHAGE) 500 mg tablet Take 500 mg by mouth q 12 HR. - TRULICITY 0.75 mg/0.5 mL pen injector - DULoxetine (CYMBALTA) 60 mg capsule Take 60 mg by mouth once daily. - ropinirole HCl (ROPINIROLE ORAL) Requip Active - VENTOLIN HFA 90 mcg/actuation inhaler INHALE 2 PUFFS BY MOUTH EVERY 4 TO 6 HOURS NEEDED FOR SHORTNESS OF BREATH OR WHEEZING - DULERA 100-5 mcg/actuation inhaler Inhale 2 Puffs as instructed twice daily. - baclofen (LIORESAL) 20 mg tablet Take 20 mg by mouth three times daily. - gabapentin (NEURONTIN) 400 mg capsule Take 1 capsule by mouth three times daily for 90 days. Problem List As Of Date: 03/28/2023 (None) Encounter Status:Closed by LORNA ANAYA on 03/28/23 [facility] BHAVESH CÁRDENAS ([id number]) 1975 M Date Time Provider Department 03/27/23 [facility] PROVIDER ALANREM During your visit today, we recorded the following information about you: Lorna Anaya 03/27/2023 1:27 PM Signed Patient's weight check faxed over for office to review; indexed into patient's chart under scanned documents. Allergies As of Date: 03/27/2023 Noted Allergy Reaction NSAIDS (NON-STEROIDAL ANTI-INFLAM* 3 10 - Anaphylaxis 14 - Other: See Comments 12 - Shortness of Breath 7 - Swelling Date Reviewed: 01/24/2023 Reviewed by: Blank Moya RN - Fully Assessed Reason for Visit: Electronic Communication [890] Prescriptions as of 03/27/2023 - traZODone (DESYREL) 50 mg tablet Take 1 tablet by mouth daily at bedtime. - metFORMIN (GLUCOPHAGE) 500 mg tablet Take 500 mg by mouth q 12 HR. - TRULICITY 0.75 mg/0.5 mL pen injector - DULoxetine (CYMBALTA) 60 mg capsule Take 60 mg by mouth once daily. - ropinirole HCl (ROPINIROLE ORAL) Requip Active - VENTOLIN HFA 90 mcg/actuation inhaler INHALE 2 PUFFS BY MOUTH EVERY 4 TO 6 HOURS NEEDED FOR SHORTNESS OF BREATH OR WHEEZING - DULERA 100-5 mcg/actuation inhaler Inhale 2 Puffs as instructed twice daily. - baclofen (LIORESAL) 20 mg tablet Take 20 mg by mouth three times daily. - gabapentin (NEURONTIN) 400 mg capsule Take 1 capsule by mouth three times daily for 90 days. Problem List As Of Date: 03/27/2023 (None) Encounter Status:Closed by LORNA ANAYA on 03/27/23 [facility]19-2023 [facility] BHAVESH CÁRDENAS ([id number]) 1975 M Date Time Provider Department 02/19/23 KB LORENZO During your visit today, we recorded the following information about you: Lorna Anaya 02/19/2023 11:51 AM Signed Patient phones stating his back cracked on and pain increased, he found harder to walk d/t pain. Patient also reports yesterday right leg was not moving and caused patient to fall, please advise. Lorna Anaya 02/21/2023 11:34 AM Signed Patient phones stating he is still in pain following his message from Sunday regarding increase in pain, requests phone call at [phone]. Lori Woody RN 02/21/2023 3:57 PM Addendum Called and left VM for patient call the office to discuss issues in detail. Spoke with pt. He complained of feeling a crack in back form turning last week, followed by shooting pain in mid back, sides, base of neck and groin. Reported a fall on 02/18 due to pain. No injury. Has been in constant pain since. Pt told to go to the ED for treatment for unbearable pain and to rule out any issues. He was also told to schedule a follow up with Dr. Lorenzo as well as his PCP. Pt stated understanding and given the office number. Allergies As of Date: 02/19/2023 Noted Allergy Reaction NSAIDS (NON-STEROIDAL ANTI-INFLAM* 3 10 - Anaphylaxis 14 - Other: See Comments 12 - Shortness of Breath 7 - Swelling Date Reviewed: 01/24/2023 Reviewed by: Blank Moya RN - Fully Assessed Reason for Visit: Patient Question [2697] Prescriptions as of 02/21/2023 - traZODone (DESYREL) 50 mg tablet Take 1 tablet by mouth daily at bedtime. - metFORMIN (GLUCOPHAGE) 500 mg tablet Take 500 mg by mouth q 12 HR. - TRULICITY 0.75 mg/0.5 mL pen injector - DULoxetine (CYMBALTA) 60 mg capsule Take 60 mg by mouth once daily. - ropinirole HCl (ROPINIROLE ORAL) Requip Active - VENTOLIN HFA 90 mcg/actuation inhaler INHALE 2 PUFFS BY MOUTH EVERY 4 TO 6 HOURS NEEDED FOR SHORTNESS OF BREATH OR WHEEZING - DULERA 100-5 mcg/actuation inhaler Inhale 2 Puffs as instructed twice daily. - baclofen (LIORESAL) 20 mg tablet Take 20 mg by mouth three times daily. - gabapentin (NEURONTIN) 400 mg capsule Take 1 capsule by mouth three times daily for 90 days. Problem List As Of Date: 02/19/2023 (None) Encounter Status:Closed by LORNA ANAYA on 02/19/23 [facility] 02-09-20[facility] CLOBYBHAVESH Royal ([id number]) 1975 M Date Time Provider Department 02/09/23 KB LORENZO During your visit today, we recorded the following information about you: Lorna Anaya 02/09/2023 3:28 PM Signed Patient phones again to follow up on advice concerning last message, please advise. Allergies As of Date: 02/09/2023 Noted Allergy Reaction NSAIDS (NON-STEROIDAL ANTI-INFLAM* 3 10 - Anaphylaxis 14 - Other: See Comments 12 - Shortness of Breath 7 - Swelling Date Reviewed: 01/24/2023 Reviewed by: Blank Moya RN - Fully Assessed Reason for Visit: Patient Question [8687] Order(s):methylPREDNI Solone (MEDROL, GUSTABO,) 4 mg Dose-PackUse as directedDisp: 21 tabletRfl: 0 Prescriptions as of 02/09/2023 - methylPREDNISolone (MEDROL, GUSTABO,) 4 mg Dose-Pack Use as directed - metFORMIN (GLUCOPHAGE) 500 mg tablet Take 500 mg by mouth q 12 HR. - TRULICITY 0.75 mg/0.5 mL pen injector - DULoxetine (CYMBALTA) 60 mg capsule Take 60 mg by mouth once daily. - ropinirole HCl (ROPINIROLE ORAL) Requip Active - VENTOLIN HFA 90 mcg/actuation inhaler INHALE 2 PUFFS BY MOUTH EVERY 4 TO 6 HOURS NEEDED FOR SHORTNESS OF BREATH OR WHEEZING - DULERA 100-5 mcg/actuation inhaler Inhale 2 Puffs as instructed twice daily. - baclofen (LIORESAL) 20 mg tablet Take 20 mg by mouth three times daily. - gabapentin (NEURONTIN) 400 mg capsule Take 1 capsule by mouth three times daily for 90 days. Problem List As Of Date: 02/09/2023 (None) Prescriptions ordered this encounter Disp Refills Start End METHYLPREDNISOLONE 4 MG TABLETS IN A* 21 t* 0 02/09/2023 02/14/2023 Sig: Use as directed Encounter Status:Closed by LORNA ANAYA on 02/09/23 Normal [facility] XR lumbar spine min 4V*on XR lumbar spine min 4V* [facility] [place] [address] [place] [address] XRay Report Signed Patient: Bhavesh Cárdenas MR#: [id number] : 1975 Acct:[id number] Age/Sex: 47 / M ADM Date: 01/27/23 Loc: ER Room: Type: [facility] ER Attending Dr: Copies to: DU Cooper Ordering Provider: DU Cooper Date of Service: 01/27/23 XR/XR lumbar spine min 4V*: Back Pain/Injury LUMBAR SPINE - 6 views: CLINICAL HISTORY: Patient was reaching for something last night and felt a shift in his back. Low back pain. COMPARISON: 08/10/2022 and 05/18/2021 AP, lateral, both oblique and AP and lateral coned-down views of the lumbosacral junction were obtained. Subtle concavity and sclerosis are again seen at the superior endplates of L3 and L4. There is no developing fracture. Alignment is maintained on the lateral view. The disc spaces are stable in height. There is minor endplate spurring and lower lumbar facet disease. No pars defect is identified. The sacroiliac joints are maintained. There are no paraspinal soft tissue abnormalities. XR/XR lumbar spine min 4V* IMPRESSION: NO ACUTE FINDINGS. Impression dictated by: Polina Cabrera M.D.01/27/2023 11:42 AM Dictation Location: [place] [address] Transcribed By: [facility] 01/27/23 1142 Dictated By: Polina Cabrera MD 01/27/23 1138 Signed By: 01/27/23 1142 [facility] HISTORY PHYSICALon HISTORY PHYSICAL HNO ID: [id number] Author: Kb Lorenzo DO Service: ? Author Type: Physician Type: HANDP Filed: 01/24/2023 9:47 AM Note Text: UPDATED HISTORY AND PHYSICAL EXAMINATION SERVICE DATE: 01/24/2023 SERVICE TIME: 9:47 AM PHYSICAL EXAM MUST BE COMPLETED ON ADMISSION The History and Physical (completed in the past 30 days) has been reviewed and the patient has been examined. The contents accurately reflect the patient's condition with the following additions or revisions since the HANDP was completed. Examination indicates no changes. This HANDP can be found in the Electronic Medical Record. SIGNATURE: Kb Lorenzo DO PATIENT NAME: Bhavesh Cárdenas DATE: January 24, 2023 TIME: 9:47 AM Normal [facility] NURSING PROGon 01-24-2023 NURSING PROG HNO ID: [id number] Author: Blank Moya RN Service: ? Author Type: Registered Nurse Type: Nursing Progress Note Filed: 01/29/2023 9:01 AM Note Text: Summary: Post-Procedure Call Post Procedure Follow Up Phone Call. No answer. The patient was instructed to call [phone] with the percentage of pain relief and what activities have improved. Blank Myoa RN January 29, 2023 [facility] OPERATIVE NOon 01-24-2023 OPERATIVE NO HNO ID: [id number] Author: Kb Lorenzo DO Service: ? Author Type: Physician Type: Operative Report Filed: 01/24/2023 10:12 AM Note Text: LOG ID: [id number] Surgery/Procedure Date: 01/24/2023 Surgeon: Kb Lorenzo DO Sorter Operator: Washington Joya MD Procedure(s): Bilateral Sacroiliac Joint Injection Pre-Op/Pre-Procedure Diagnosis: Sacroiliac Joint Pain Post-Op Diagnosis: Same Anesthesia: Local Estimated Blood Loss: None Specimens: None Drains: None Complications: None DESCRIPTION OF PROCEDURE: The patient was brought to the fluoroscopy suite. IV access was obtained prior to the procedure. The patient was positioned prone on the fluoroscopy table. Continuous hemodynamic monitoring was initiated including blood pressure, EKG, and pulse oximetry. IV sedation was administered incrementally to allow the patient to remain comfortable and conversant throughout the procedure. The lumbosacral area was prepped with chlorhexidine and draped into a sterile field. The skin overlying the bilateral side sacroiliac joint was anesthetized using 1cc of lidocaine 1%. The inferior pole of the sacroiliac joint was identified by cephalo-oblique fluoroscopy. A 25 gauge, 3 1/2 inch spinal needle was slowly advanced through the sacroiliac joint capsule under fluoroscopic guidance. The needle position was confirmed using oblique, AP and lateral fluoroscopic imaging. Negative aspiration was confirmed. A combination of 2 cc of lidocaine 1% and 40 mg Kenalog was easily injected. A sterile dressing was applied. Bhavesh Cárdenas was taken to the Post-block Recovery Area for further observation. Sedation/Procedure Start Time: 1004 Sedation/Procedure End Time: 1010 Care Instructions: Discharge per protocol. Medications: See Epic medication section Appointment: Patient to return in 2 weeks Discharge Condition: Good Patient discharged home when all discharge criterion met. SIGNATURE: Kb Lorenzo DO PATIENT NAME: Bhavesh Cárdenas DATE: January 24, 2023 TIME: 10:11 AM Normal [facility] NURSING PROGon 01-22-2023 NURSING PROG HNO ID: [id number] Author: Frank Marrufo RN Service: Pain Management Author Type: Registered Nurse Type: Nursing Progress Note Filed: 01/22/2023 10:03 AM Note Text: Summary: Pre procedure phone call 01/24/23 Pre- Procedure Telephone Instructions Patient called to remind them of the date and time of their appointment. Procedure Date 01/24/23 Arrival to Pain Management Time: 0820am Spoke with patient Instructions given: 1. Do not eat or drink for 8 hours, however, you may have clear liquids (water, black coffee, apple juice, clear broth, clear gelatin, clear juices) up to 2 hours before the appointment. 2. A tractor trailer moving van driver must be present who can drive you home. If you are coming by medical transport, you must have a responsible person other than the program manager transportation with you. 3. If you take any Blood Thinners or Insulin, please contact your prescribing physician for instructions on when to stop taking these medications. When was Blood Thinner Last Taken: n/a 4. Take routine medications, including heart, blood pressure, or seizure medications with water. 5. Are you currently taking Antibiotics: no or 6. Please reschedule if you are ill, have an infection, a fever, or cannot make the appointment by calling [phone] (Option 2). Normal [facility] Theodora 01-11-2023 [facility] Telephone (NPRC21) BHAVESH CÁRDENAS ([id number]) 1975 M Date Time Provider Department 01/11/23 LORI WOODY1 During your visit today, we recorded the following information about you: Lori Woody RN 01/11/2023 8:29 AM Signed Phoned and spoke with Bhavesh Cárdenas to confirm appointment for spine procedure on 01/24/23 with the arrival time of 845 for 930 am appointment. Patient verbalized understanding of the following: -Provided education on spine procedure and answered questions related to spine injection procedure. -Ammunition Specialist is needed and for tractor trailer moving van driver to wait in lobby on [address] until patient is discharged to drive patient home. -NPO 8 hours prior to appointment, ok to take morning medications with sip of water, -Not to take any pain medications the day of injection to see how well injection works. -Please do not take any NSAIDs/anti-inflammat ories (mobic, ibuprofen, advil, aleve, etc) the day of procedure Allergies reviewed: yes Allergy to IV contrast dye or steroids: no Taking any antiplatelet/anticoag ulant (blood thinners): no Notified patient to reach out to prescribing physician to see if ok to hold medication for n/a days prior to injection. Patient will notify RN with physician's response. Need PT/INR drawn: n/a, notified patient to get blood drawn at Lab S15 or Lab J14 an hour prior to arriving to 5. INR<1.3 Taking aspirin 81mg: no Any open wounds/sores?: no Taking Antibiotics?: no Diabetic: no , notified that blood sugar will be taken at office and ok to take morning diabetes medication. Is this patient's first injection?: no, any complications: no Patient notified that Klonopin PO can be given prior to injection to help with anxiety. Patient verbalized understanding. Patient given number [phone], spine injections schedulers, if there is any need to reschedule/ change appointment during normal business hours. Active MyChart users were informed to read MyChart procedure instructions prior to appointment. AMBULATORY PATIENT EDUCATION TOPIC: SPINE INJECTION PROCEDURE, PRE-INJECTION AND POST- INJECTION INSTRUCTIONS READINESS TO LEARN COGNITIVE ABILITY: ALERT AND ORIENTED MOTIVATION TO LEARN: Eager Interested FAMILY SUPPORT: None - Unavailable/disintere sted INSTRUCTION PROVIDED TO: Patient PATIENT LEARNS BEST BY: INDIVIDUAL INSTRUCTION FACTORS AFFECTING LEARNING: None PHYSICAL LIMITATIONS AFFECTING LEARNING: None LEARNING RESPONSE METHOD OF INSTRUCTION: TEACH BACK AND INDIVIDUAL INSTRUCTION PATIENT / FAMILY RESPONSE: VERBALIZED UNDERSTANDING OF PRE AND POST INJECTION INSTRUCTIONS Allergies As of Date: 01/11/2023 Noted Allergy Reaction NSAIDS (NON-STEROIDAL ANTI-INFLAM* 3 10 - Anaphylaxis 14 - Other: See Comments 12 - Shortness of Breath 7 - Swelling Date Reviewed: 11/24/2022 Reviewed by: Gillian Vega RN - Fully Assessed Reason for Visit: pre injection call [Other] Prescriptions as of 01/11/2023 - DULoxetine (CYMBALTA) 60 mg capsule Take 60 mg by mouth once daily. - ropinirole HCl (ROPINIROLE ORAL) Requip Active - VENTOLIN HFA 90 mcg/actuation inhaler INHALE 2 PUFFS BY MOUTH EVERY 4 TO 6 HOURS NEEDED FOR SHORTNESS OF BREATH OR WHEEZING - DULERA 100-5 mcg/actuation inhaler Inhale 2 Puffs as instructed twice daily. - baclofen (LIORESAL) 20 mg tablet Take 20 mg by mouth three times daily. - gabapentin (NEURONTIN) 400 mg capsule Take 1 capsule by mouth three times daily for 90 days. Problem List As Of Date: 01/11/2023 (None) Encounter Status:Closed by LORI WOODY on 01/11/23 Normal [facility] CBC AUTO DIFFon 12-21-2022 BASO # 0.1 103/ul Normal 0.0-0.1 [facility] Comment on above: Performed By: #### C BC #### [facility] [address] [place] [address] Dr. Oscar Ocampo Basophils/100 WBC (Bld) 0.6 % Normal 0.2-2.0 [facility] Comment on above: Performed By: #### C BC #### [facility] [address] [place] [address] Dr. Oscar Ocampo EO # 0.2 103/ul Normal 0.0-0.7 [facility] Comment on above: Performed By: #### C BC #### [facility] [address] [place] [address] Dr. Oscar Ocampo Eosinophils/100 WBC (Bld) 1.7 % Normal 0.9-7.0 [facility] Comment on above: Performed By: #### C BC #### [facility] [address] [place] [address] Dr. Oscar Ocampo Erythrocyte distribution width (RBC) [Ratio] 12.2 % Normal 11.0-15.0 [facility] Comment on above: Performed By: #### C BC #### [facility] [address] [place] [address] Dr. Oscar Ocampo Hematocrit (Bld) [Volume fraction] 44.4 % Normal 42.0-54.0 [facility] Comment on above: Performed By: #### C BC #### [facility] [address] [place] [address] Dr. Oscar Ocampo Hemoglobin (Bld) [Mass/Vol] 14.9 g/dL Normal 14.0-18.0 [facility] Comment on above: Performed By: #### C BC #### [facility] [address] [place] [address] Dr. Oscar Ocampo IG # 0.03 10e3/ul Normal 0.00-0.03 [facility] Comment on above: Performed By: #### C BC #### [facility] [address] [place] [address] Dr. Oscar Ocampo IG % 0.3 % Normal 0.0-0.5 [facility] Comment on above: Performed By: #### C BC #### [facility] [address] [place] [address] Dr. Oscar Ocampo LYMPH # 2.9 103/ul Normal 1.2-3.8 [facility] Comment on above: Performed By: #### C BC #### [facility] [address] [place] [address] Dr. Oscar Ocampo Lymphocytes/100 WBC (Bld) 32.6 % Normal 20.5-60.0 [facility] Comment on above: Performed By: #### C BC #### [facility] [address] [place] [address] Dr. Oscar Ocampo MANUAL DIFF REQ NO Normal [facility] Comment on above: Performed By: #### C BC #### [facility] [address] [place] [address] Dr. Oscar Ocampo MCH (RBC) [Entitic mass] 30.0 pg Normal 25.9-34.0 [facility] Comment on above: Performed By: #### C BC #### [facility] [address] [place] [address] Dr. Oscar Ocampo MCHC (RBC) [Mass/Vol] 33.6 g/dL Normal 29.9-35.2 [facility] Comment on above: Performed By: #### C BC #### [facility] [address] [place] [address] Dr. Oscar Ocampo MCV (RBC) [Entitic vol] 89.3 fL Normal 80.0-94.0 [facility] Comment on above: Performed By: #### C BC #### [facility] [address] [place] [address] Dr. Oscar Ocampo MONO # 0.8 103/ul Normal 0.3-0.8 [facility] Comment on above: Performed By: #### C BC #### [facility] [address] [place] [address] Dr. Oscar Ocampo Monocytes/100 WBC (Bld) 8.7 % Normal 1.7-12.0 [facility] Comment on above: Performed By: #### C BC #### [facility] [address] [place] [address] Dr. Oscar Ocampo NEUT # 5.1 103/ul Normal 1.4-6.5 [facility] Comment on above: Performed By: #### C BC #### [facility] [address] [place] [address] Dr. Oscar Ocampo Neutrophils/100 WBC (Bld) 56.1 % Normal 43.0-75.0 [facility] Comment on above: Performed By: #### C BC #### [facility] [address] [place] [address] Dr. Oscar Ocampo Platelet mean volume (Bld) [Entitic vol] 10.5 fL Normal 9.5-13.5 [facility] Comment on above: Performed By: #### C BC #### [facility] [address] [place] [address] Dr. Oscar Ocampo PLT 311 103/ul Normal 150-450 [facility] Comment on above: Performed By: #### C BC #### [facility] [address] [place] [address] Dr. Oscar Ocampo RBC 4.97 106/ul Normal 4.70-6.10 [facility] Comment on above: Performed By: #### C BC #### [facility] [address] [place] [address] Dr. Oscar Ocampo WBC 9.0 103/ul Normal 4.0-11.0 [facility] Comment on above: Performed By: #### C BC #### [facility] [address] [place] [address] Dr. Oscar Ocampo GLYCOHEMOGLOBIN A1Con 2022 ADA RECOMMENDATION SEE BELOW Normal [facility] Comment on above: Result Comment: ADA RECOMMENDED LIMIT 4.0 - 6.0 ADA THERAPEUTIC TARGET < 7.0 ACTION SUGGESTED > 7.0 Performed By: #### A 1C #### [facility] [address] [place] [address] Dr. Oscar Ocampo Glucose [Mass/Vol] 289 mg/dL Normal [facility] Comment on above: Performed By: #### A 1C #### [facility] [address] [place] [address] Dr. Oscar Ocampo HbA1c (Bld) [Mass fraction] 11.7 % Critically high 4.5-6.2 [facility] Comment on above: Performed By: #### A 1C #### [facility] [address] [place] [address] Dr. Oscar Ocampo LIPID PROFILEon 12-21-2022 CHOL-HDL RATIO NORM SEE BELOW Normal [facility] Comment on above: Result Comment: 3.3 - 4.4 LOW RISK 4.4 - 7.1 AVERAGE RISK 7.1 - 11.0 MODERATE RISK >11.0 HIGH RISK Performed By: #### L IPID, BMP #### [facility] [address] [place] [address] Dr. Oscar Ocampo Cholesterol [Mass/Vol] 217 mg/dL Critically high <=200 [facility] Comment on above: Performed By: #### L IPID, BMP #### [facility] [address] [address] [address] Oscar Ocampo Cholesterol in HDL [Mass/Vol] 40 mg/dL Normal 40-60 [facility] Comment on above: Performed By: #### L IPID, BMP #### [facility] [address] [address] [address] Oscar Ocampo Cholesterol in LDL [Mass/Vol] 133.4 mg/dL Normal [facility] Comment on above: Performed By: #### L IPID, BMP #### [facility] [address] [address] [address] Oscar Ocampo Cholesterol.total/Ch olesterol in HDL [Mass ratio] 5.4 {ratio} Normal [facility] Comment on above: Performed By: #### L IPID, BMP #### [facility] [address] [place] [address] Dr. Oscar Ocampo HDL NORMAL > or = 60 mg/dl - LO W CARDIOVASCULAR RISK <40 mg/dl - HIGH CARDIOVASCULAR RISK Normal [facility] Comment on above: Performed By: #### L IPID, BMP #### [facility] [address] [place] [address] Dr. Oscar Ocampo LDL CALC NORMAL SEE BELOW Normal [facility] Comment on above: Result Comment: <100 mg/dl OPTIMAL 100 - 129 mg/dl NEAR OR ABOVE OPTIMAL 130 - 159 mg/dl BORDERLINE HIGH 160 - 189 mg/dl HIGH >190 mg/dl VERY HIGH Performed By: #### L IPID, BMP #### [facility] [address] [place] [address] Dr. Oscar Ocampo Triglyceride [Mass/Vol] 218 mg/dL Critically high <=150 [facility] Comment on above: Performed By: #### L IPID, BMP #### [facility] [address] [place] [address] Dr. Oscar Ocampo VLDL CALC 43.6 mg/dL Normal [facility] Comment on above: Performed By: #### L IPID, BMP #### [facility] [address] [place] [address] Dr. Oscar Ocampo PROF CHEM 8 (BAS METB)on Anion gap [Moles/Vol] 12.6 mmol/L Normal [facility] Comment on above: Performed By: #### L IPID, BMP #### [facility] [address] [place] [address] Dr. Oscar Ocampo Calcium [Mass/Vol] 9.6 mg/dL Normal 8.5-10.1 [facility] Comment on above: Performed By: #### L IPID, BMP #### [facility] [address] [place] [address] Dr. Oscar Ocampo Chloride [Moles/Vol] 100 mmol/L Normal 98-107 [facility] Comment on above: Performed By: #### L IPID, BMP #### [facility] [address] [place] [address] Dr. Oscar Ocampo CO2 [Moles/Vol] 28.6 mmol/L Normal 21.0-32.0 [facility] Comment on above: Performed By: #### L IPID, BMP #### [facility] [address] [place] [address] Dr. Oscar Ocampo Creatinine [Mass/Vol] 0.84 mg/dL Normal 0.70-1.30 [facility] Comment on above: Performed By: #### L IPID, BMP #### [facility] [address] [place] [address] Dr. Oscar Ocampo EGFR-AF CITIZ[place] >60 Normal >=60 [facility] Comment on above: Performed By: #### L IPID, BMP #### [facility] [address] [place] [address] Dr. Oscar Ocampo EGFR-NON AF CITIZEN OF [place] >60 Normal >=60 [facility] Comment on above: Performed By: #### L IPID, BMP #### [facility] [address] [place] [address] Dr. Oscar Ocampo Glucose [Mass/Vol] 197 mg/dL Critically high 74-106 T [facility] Comment on above: Performed By: #### L IPID, BMP #### [facility] [address] [address] [address] Oscar Ocampo Potassium [Moles/Vol] 4.2 mmol/L Normal 3.5-5.1 [facility] Comment on above: Performed By: #### L IPID, BMP #### [facility] [address] [address] [address] Oscar Ocampo Sodium [Moles/Vol] 137 mmol/L Normal 136-145 [facility] Comment on above: Performed By: #### L IPID, BMP #### [facility] [address] [address] [address] Oscar Ocampo Urea nitrogen [Mass/Vol] 14.0 mg/dL Normal 7.0-18.0 [facility] Comment on above: Performed By: #### L IPID, BMP #### [facility] [address] [address] [address] Oscar Ocampo Urea nitrogen/Creatinine [Mass ratio] 16.7 mg/mg Normal [facility] Comment on above: Performed By: #### L IPID, BMP #### [facility] [address] [address] [address] Oscar Yip 12-15-2022 CNPN Telephone (NPRC21) BHAVESH CÁRDENAS ([id number]) 1975 M Date Time Provider Department 12/15/22 LORI WOODY [facility] During your visit today, we recorded the following information about you: Lori Woody RN 12/15/2022 3:43 PM Signed Called pt for pre inj phone call. Left VM with office number to call for instructions and questions or concerns. Allergies As of Date: 12/15/2022 Noted Allergy Reaction NSAIDS (NON-STEROIDAL ANTI-INFLAM* 3 10 - Anaphylaxis 14 - Other: See Comments 12 - Shortness of Breath 7 - Swelling Date Reviewed: 11/24/2022 Reviewed by: Gillian Vega RN - Fully Assessed Reason for Visit: pre inj phone call [Other] Prescriptions as of 12/15/2022 - DULoxetine (CYMBALTA) 60 mg capsule Take 60 mg by mouth once daily. - ropinirole HCl (ROPINIROLE ORAL) Requip Active - VENTOLIN HFA 90 mcg/actuation inhaler INHALE 2 PUFFS BY MOUTH EVERY 4 TO 6 HOURS NEEDED FOR SHORTNESS OF BREATH OR WHEEZING - DULERA 100-5 mcg/actuation inhaler Inhale 2 Puffs as instructed twice daily. - baclofen (LIORESAL) 20 mg tablet Take 20 mg by mouth three times daily. - gabapentin (NEURONTIN) 400 mg capsule Take 1 capsule by mouth three times daily for 90 days. Problem List As Of Date: 12/15/2022 (None) Encounter Status:Closed by LORI WOODY on 12/15/22 [facility] CNOVon 11-24-2022 CNOV Office Visit (SPNMMN ) BHAVESH CÁRDENAS ([id number]) 1975 M Date Time Provider Department 11/24/22 10:00 AM SPINE MED PROCEDURE MAIN SPNMMN During your visit today, we recorded the following information about you: Temperature Pulse Respiration Blood pressure 98.2 degrees 89/minute 18/minute 140/94 Patricia Hylton 12/26/2022 10:12 AM Signed cancelled Gillian Vega RN 11/24/2022 10:54 AM Signed PATIENT NAME: Bhavesh Cárdenas 1975 47 year old Current medications and allergies reviewed with patient in visit navigator: Yes Baseline vital signs and pain assessment entered in activity in visit navigator: Yes Ammunition Specialist 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 Menstrual Date: NA Undergone Injection in the past: Yes, [place] Time since last PO intake: this am sips of water. Last night 8pm last meal. Any history of adverse reaction or unanticipated events when receiving steroids, iodine, or contrast, as commonly used for CT or MR imaging: No Antibiotic/antifungal administered in the last 2 weeks: No Recent flu symptoms: No Noticed any open skin, sores, or rashes: No Undergone any recent serious medical/dental or surgical procedure: No Diabetic: Yes, Blood sugar: 430 mg/dL Fluoroscopy applicable: currently using an Insulin Pump: No Blood Thinner (anticoagulants/antip latelet medications): No Klonopin requested: yes Signed by: Gillian Vega RN November 24, 2022 10:02 AM Gillian Vega RN 12/26/2022 10:12 AM Signed Procedure cancelled due to blood sugar of 430. Required BS less than 250. Patient voiced understanding and will reschedule. All in agreement. Referring Provider: KB LORENZO [[id number]] Allergies As of Date: 11/24/2022 Noted Allergy Reaction NSAIDS (NON-STEROIDAL ANTI-INFLAM* 3 10 - Anaphylaxis 14 - Other: See Comments 12 - Shortness of Breath 7 - Swelling Date Reviewed: 11/24/2022 Reviewed by: Gillian Vega RN - Fully Assessed Primary Visit Diagnosis:APPOINTMENT CANCELLED Order(s):GLUCOSE, BLOOD (POC) [[id number]] Order #: [id number]. #:[id number] Prescriptions as of 12/26/2022 - DULoxetine (CYMBALTA) 60 mg capsule Take 60 mg by mouth once daily. - ropinirole HCl (ROPINIROLE ORAL) Requip Active - VENTOLIN HFA 90 mcg/actuation inhaler INHALE 2 PUFFS BY MOUTH EVERY 4 TO 6 HOURS NEEDED FOR SHORTNESS OF BREATH OR WHEEZING - DULERA 100-5 mcg/actuation inhaler Inhale 2 Puffs as instructed twice daily. - baclofen (LIORESAL) 20 mg tablet Take 20 mg by mouth three times daily. - gabapentin (NEURONTIN) 400 mg capsule Take 1 capsule by mouth three times daily for 90 days. 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 Menstrual Date: NA Undergone Injection in the past: Yes, [place] Time since last PO intake: this am sips of water. Last night 8pm last meal. Any history of adverse reaction or unanticipated events when receiving steroids, iodine, or contrast, as commonly used for CT or MR imaging: No Antibiotic/antifungal administered in the last 2 weeks: No Recent flu symptoms: No Noticed any open skin, sores, or rashes: No Undergone any recent serious medical/dental or surgical procedure: No Diabetic: Yes, Blood sugar: 430 mg/dL Fluoroscopy applicable: currently using an Insulin Pump: No Blood Thinner (anticoagulants/antip latelet medications): No Klonopin requested: yes Signed by: Gillian Vega RN November 24, 2022 10:02 AM Encounter Status:Closed by PATRICIA VIGIL on 12/26/22 Normal [facility] GLUCOSE, BLOOD (POC)on 11-24 Glucose [Mass/Vol] 430 mg/dL Abnormal 74 - 99 mg/dL [facility] MELIABHAVESH Carranza ([id number]) 1975 M Date Time Provider Department 11/16/22 KB LORENZO [facility] During your visit today, we recorded the following information about you: Washington Ly LPN 11/16/2022 1:00 PM Signed Tried to reach patient via telephone for pre-procedure guidelines regarding spine injection with Dr. Lorenzo on 11/24/2022, patient unable to talk on phone at this time. Voicemail box is full and cannot accept messages at this time.. [employer] message sent with pre-procedure guidelines for injection. Will call back at a later. Allergies As of Date: 11/16/2022 Noted Allergy Reaction NSAIDS (NON-STEROIDAL ANTI-INFLAM* 3 10 - Anaphylaxis 14 - Other: See Comments 12 - Shortness of Breath 7 - Swelling Date Reviewed: 11/15/2022 Reviewed by: Lori Woody RN - Fully Assessed Reason for Visit: Preparations For Procedures [899] Cmt: Pre-injection call Prescriptions as of 11/16/2022 - amoxicillin-clavulani c acid (AUGMENTIN) 875-125 mg per tablet Take by mouth q 12 HR. - DULoxetine (CYMBALTA) 60 mg capsule Take 60 mg by mouth once daily. - ropinirole HCl (ROPINIROLE ORAL) Requip Active - VENTOLIN HFA 90 mcg/actuation inhaler INHALE 2 PUFFS BY MOUTH EVERY 4 TO 6 HOURS NEEDED FOR SHORTNESS OF BREATH OR WHEEZING - DULERA 100-5 mcg/actuation inhaler Inhale 2 Puffs as instructed twice daily. - baclofen (LIORESAL) 20 mg tablet Take 20 mg by mouth three times daily. - gabapentin (NEURONTIN) 400 mg capsule Take 1 capsule by mouth three times daily for 90 days. Problem List As Of Date: 11/16/2022 (None) Encounter Status:Closed by WASHINGTON LY on 11/16/22 [facility] CNOVon 11-15-2022 CNOV Office Visit (NPRC21 ) BHAVESH CÁRDENAS ([id number]) 1975 M Date Time Provider Department 11/15/22 2:00 PM KB LORENZO NPRC21 During your visit today, we recorded the following information about you: Pulse Respiration Blood pressure 90/minute 18/minute 121/87 Kb Lorenzo DO 12/09/2022 11:53 AM Signed THE [facility] November 15, 2022 This is a in-person visit. 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 He was referred by Olayinka Boyd [id number] [address] Mcknight [facility] [id number]. Chief complaint: Center of back pain that radiates down the inside of his thigh down to testicle SUBJECTIVE: The patient states that he has pain in the center of his back that radiates down the inside of his thigh down to testicle. The patient states that this pain started four years ago that got worse over the past six months. The patient saw a family doctor and was seen by rheumatology. The home care assistant stated he had arthritis. He started physical therapy In 2020 the patient was sent to a L5-S1 for radiofrequency ablation that were not helpful. The diagnostic blocks was done as well. This was done at [facility]. The patient tried to tolerate it, but ended up just drinking more. The patient tried baclofen. The patient was also on Gabapentin 300 TID that is now up to 600 mg TID. The patient had a Lumbar MRI done that showed Marked right and moderate left foramen narrowing at L5-S1 secondary to moderate degenerative disc disease and mild degenerative facet arthropathy. The patient was seen by neurosurgery here at [facility] and not deemed an appropriate surgical candidate. The patient was also seen by rheumatology and had a screen for inflammatory arthritis/autoimmune forms of arthritis. Labs do not reveal any abnormal rheumatologic tests. X rays of hands show no signs of inflammatory arthropathy. The patient describes the pain as in the center of lower back pain that radiates down the inside of his thigh down to testicle primarily on the right side. Sometimes the pain is on the left side. Climbing steps, walking long period, or twisting makes the pain worse. Nothing makes the pain better. The first three hours of the morning makes the pain better. He notices the more he moves, the worse it gets. He describes the pain as nagging and burning with times he describes it as getting stabbed. The family physician prescribed oxycodone 5 mg that helps with the pain. The patient is also on Cymbalta 60 mg daily The patient tried flexeril that did not work. The patient cannot take NSAIDs due to anaphylaxis. Spine Red Flag Bhavesh Carranza Melia endorses red flag symptoms of Bowel or bladder dysfunction Anesthesia: Denies Schizophrenia: Denies : Denies CHF: Denies Uncontrolled HTN: Denies Recent ME: Denies Arrythmias: Denies Afib: Denies Hyperthyroid: Denies Aortic Stenosis: Denies Liver Failure: Denies Increased ICP: Denies Previous pain treatments: physical therapy, medications, injections Functional Limitations: The patient limiting his work. Wellness: How would you describe your diet: Chicken, turkeym veggie nikolas How many days a week do you exercise: 0 How many hours do you sleep a night: 5-6 hours interrupted Emotional Symptoms: include depression, frustration, and irritability The patient has loss of interest, energy, and sleep The patient denies suicidal ideation. Non-medical stresses: Include loss of job, work difficulties, medical problems, and occupational problems Family involvement: is appropriate/helpful and supportive Financial Status: No financial difficulty Allergies: Reviewed in the EMR Current Medications: Reviewed in the EMR PAST MEDICAL HISTORY Diagnosis Date Diabetes mellitus (HCC) PAST SURGICAL HISTORY Procedure Laterality Date KNEE ARTHROSCOPY/SURGERY Left 1997 removed part of knee cap and reconstructed ligament Psychiatric History: Denies Social History Tobacco Use Smoking status: Never Smokeless tobacco: Never Substance use: He never used tobacco. @Pocket Gems@ denies current and past significant alcohol use and @caphe@ describes current alcohol consumption as 3-4 shots of whiskey a day to help with pain Drug use: There is no history of recreational substance use. . Family History FAMILY HISTORY Problem Relation Age of Onset Multiple Sclerosis Father Arthritis Father Prostate Cancer Father Glaucoma Son ROS was positive for: Difficulty walking Back pain All of the other systems reviewed were negative. OBJECTIVE: PHYSICAL EXAM: GENERAL APPEARANCE: Well appearing, well-hydrated, well nourished and alert SKIN: Head, neck, trunk, and extrem (more content not included)... Normal [facility] MIKAYLA BY IFA WITH REFLEXon Nuclear Ab IF (S) [Titer] Negative Normal Negative [facility] Comment on above: Order Comment: Speci men Type: BLOOD SPECIMENOrdering Facility: [facility] Address: [address] [place] [phone] Result Comment: Anti -nuclear antibody test is used as an aid in diagnosis of systemic autoimmune diseases. Where positive and clinically warranted, follow-up using disease-specific testing is recommended. Low positive titers are not uncommon with advanced age, certain chronic infections, and malignancies among others. Test methodology: Indirect fluorescence immunoassay (IFA) using HEp-2 cells. Performed By: #### A MEGAN ####[facility] LABCLIA [id number] [place] [address] [place] C-REACTIVE PROTEIN (CRP)on 0 10-30-2022 CRP [Mass/Vol] <0.9 mg/dL [facility] CBC W Auto Differential pane l (Bld)on 10-30-2022 Basophils (Bld) [#/Vol] 0.07 10*3/uL Normal <0.11 [facility] Comment on above: Order Comment: Speci men Type: BLOOD SPECIMENOrdering Facility: [facility] Address: [address] [place] [address] Performed By: #### 5 7021-8, 4536-7 ####[facility] LABIA [id number] [place] [address] [place] Basophils/100 WBC (Bld) 0.8 % Normal [facility] Comment on above: Order Comment: Speci men Type: BLOOD SPECIMENOrdering Facility: [facility] Address: [address] [place] [address] Performed By: #### 5 7021-8, 4536-7 ####[facility] LABCLIA [id number] [place] [address] [place] Differential cell count method Nom (Bld) Auto Normal [facility] Comment on above: Order Comment: Speci men Type: BLOOD SPECIMENOrdering Facility: [facility] Address: [address] [address] Performed By: #### 5 7021-8, 7-7 ####[facility] LABCLIA [id number] [place] [address] [place] Eosinophils (Bld) [#/Vol] 0.17 10*3/uL Normal <0.46 [facility] Comment on above: Order Comment: Speci men Type: BLOOD SPECIMENOrdering Facility: [facility] Address: [address] [place], [place] [id number] Performed By: #### 5 7021-8, 4536-7 ####[facility] LABCLIA [id number] [place] [address] [place] Eosinophils/100 WBC (Bld) 1.9 % Normal [facility] Comment on above: Order Comment: Speci men Type: BLOOD SPECIMENOrdering Facility: [facility] Address: [address] [place], [place] [id number] Performed By: #### 5 7021-8, 4536-7 ####[facility] LABCLIA [id number] [place] [address] [place] Erythrocyte distribution width (RBC) [Ratio] 11.8 % Normal 11.5-15.0 [facility] Comment on above: Order Comment: Speci men Type: BLOOD SPECIMENOrdering Facility: [facility] Address: [address] [place], [place] [phone] Performed By: #### 5 7021-8, 4536-7 ####[facility] LABIA [id number] [place] [address] [place] Hematocrit (Bld) [Volume fraction] 45.8 % Normal 39.0-51.0 [facility] Comment on above: Order Comment: Speci men Type: BLOOD SPECIMENOrdering Facility: [facility] Address: [address] [place], [place] [address] Performed By: #### 5 7021-8, 4536-7 ####[facility] LABCLIA [id number] [place] [address] [place] Hemoglobin (Bld) [Mass/Vol] 15.7 g/dL Normal 13.0-17.0 [facility] Comment on above: Order Comment: Speci men Type: BLOOD SPECIMENOrdering Facility: [facility] Address: [address] [address] Performed By: #### 5 7021-8, 4536-7 ####[facility] LABCLIA [id number] [place] [address] [place] Immature granulocytes (Bld) [#/Vol] 0.06 10*3/uL Normal <0.10 [facility] Comment on above: Order Comment: Speci men Type: BLOOD SPECIMENOrdering Facility: [facility] Address: [address] [address] Performed By: #### 5 7021-8, 4536-7 ####[facility] LABCLIA [id number] [place] [address] [place] Immature granulocytes/100 WBC (Bld) 0.7 % Normal [facility] Comment on above: Order Comment: Speci men Type: BLOOD SPECIMENOrdering Facility: [facility] Address: [address] [place] [address] Performed By: #### 5 7021-8, 7 ####[facility] LABCLIA [id number] [place] [address] [place] Lymphocytes (Bld) [#/Vol] 2.56 10*3/uL Normal 1.00-4.00 [facility] Comment on above: Order Comment: Speci men Type: BLOOD SPECIMENOrdering Facility: [facility] Address: [address] Performed By: #### 5 7021-8, 4536-7 ####[facility] LABCLIA [id number] [place] [address] [place] Lymphocytes/100 WBC (Bld) 27.9 % Normal [facility] Comment on above: Order Comment: Speci men Type: BLOOD SPECIMENOrdering Facility: [facility] Address: [address] [place], [place] [phone] Performed By: #### 5 7021-8, 4536-7 ####[facility] LABIA [id number] [address] [place] [facility] MCH (RBC) [Entitic mass] 30.3 pg Normal 26.0-34.0 [facility] Comment on above: Order Comment: Speci men Type: BLOOD SPECIMENOrdering Facility: [facility] Address: [address] [place] [address] Performed By: #### 5 7021-8, 7 ####[facility] [id number] [address] MCHC (RBC) [Mass/Vol] 34.3 g/dL Normal 30.5-36.0 [facility] Comment on above: Order Comment: Speci men Type: BLOOD SPECIMENOrdering Facility: [facility] Address: [address] [place], [place] [address] Performed By: #### 5 7021-8, 7 ####[facility] [id number] [address] [place] MCV (RBC) [Entitic vol] 88.4 fL Normal 80.0-100.0 [facility] Comment on above: Order Comment: Speci men Type: BLOOD SPECIMENOrdering Facility: [facility] Address: [address] [phone] Performed By: #### 5 7021-8, 7 ####[facility] [id number] [place] [address] [place] [facility] [place] Monocytes (Bld) [#/Vol] 0.70 10*3/uL Normal <0.87 [facility] Comment on above: Order Comment: Speci men Type: BLOOD SPECIMENOrdering Facility: [facility] Address: [address] [place] [address] Performed By: #### 5 7021-8, 4536-7 ####[facility] LABCLIA [id number] [place] [address] [place] Monocytes/100 WBC (Bld) 7.6 % Normal [facility] Comment on above: Order Comment: Speci men Type: BLOOD SPECIMENOrdering Facility: [facility] Address: [address] [place] [address] Performed By: #### 5 7021-8, 4536-7 ####[facility] LABCLIA [id number] [place] [address] [place] Neutrophils (Bld) [#/Vol] 5.62 10*3/uL Normal 1.45-7.50 [facility] Comment on above: Order Comment: Speci men Type: BLOOD SPECIMENOrdering Facility: [facility] Address: [address] [place] [address] Performed By: #### 5 7021-8, 4536-7 ####[facility] LABCLIA [id number] [place] [address] [place] Neutrophils/100 WBC (Bld) 61.1 % Normal [facility] Comment on above: Order Comment: Speci men Type: BLOOD SPECIMENOrdering Facility: [facility] Address: [address] [place] [address] Performed By: #### 5 7021-8, 4536-7 ####[facility] LABCLIA [id number] [place] [address] [place] Nucleated RBC (Bld) [#/Vol] 10*3/uL Normal <0.01 [facility] Comment on above: Order Comment: Speci men Type: BLOOD SPECIMENOrdering Facility: [facility] Address: [address] [place] [address] Performed By: #### 5 7021-8, 7-7 ####[facility] LABCLIA [id number] [place] [address] [place] Nucleated RBC/100 WBC (Bld) [Ratio] 0.0 /100 WBC Normal [facility] Comment on above: Order Comment: Speci men Type: BLOOD SPECIMENOrdering Facility: [facility] Address: [address] [place], [place] [address] Performed By: #### 5 7021-8, 4537-7 ####[facility] LABCLIA [id number] [place] [address] [place] Platelet mean volume (Bld) [Entitic vol] 11.5 fL Normal 9.0-12.7 [facility] Comment on above: Order Comment: Speci men Type: BLOOD SPECIMENOrdering Facility: [facility] Address: [address] [place] [address] Performed By: #### 5 7021-8, 4537-7 ####[facility] LABCLIA [id number] [place] [address] [place] Platelets (Bld) [#/Vol] 348 10*3/uL Normal 150-400 [facility] Comment on above: Order Comment: Speci men Type: BLOOD SPECIMENOrdering Facility: [facility] Address: [address] [place], [place] [address] Performed By: #### 5 7021-8, 4537-7 ####[facility] LABCLIA [id number] [place] [address] [place] RBC (Bld) [#/Vol] 5.18 10*6/uL Normal 4.20-6.[address] [facility] Comment on above: Order Comment: Speci men Type: BLOOD SPECIMENOrdering Facility: [facility] Address: [address] [place], [place] [phone] Performed By: #### 5 7021-8, 4537-7 ####[facility] LABCLIA [id number] [place] [address] [place] WBC (Bld) [#/Vol] 9.18 10*3/uL Normal 3.70-11.[address] [facility] Comment on above: Order Comment: Speci men Type: BLOOD SPECIMENOrdering Facility: [facility] Address: [address] [place] [address] Performed By: #### 5 7021-8, 4537-7 ####[facility] LABCLIA [id number] [facility] [id number] [place] [address] [place] Basophils (Bld) [#/Vol] 0.07 10*3/uL <0.11 k/uL [facility] Basophils/100 WBC (Bld) 0.8 % [facility] Differential cell count method Nom (Bld) Auto [facility] Eosinophils (Bld) [#/Vol] 0.17 10*3/uL <0.46 k/uL [facility] Eosinophils/100 WBC (Bld) 1.9 % [facility] Erythrocyte distribution width (RBC) [Ratio] 11.8 % 11.5 - 15.0 % [facility] Hematocrit (Bld) [Volume fraction] 45.8 % 39.0 - 51.0 % [facility] Hemoglobin (Bld) [Mass/Vol] 15.7 g/dL 13.0 - 17.0 g/dL [facility] Immature granulocytes (Bld) [#/Vol] 0.06 10*3/uL <0.10 k/uL [facility] Immature granulocytes/100 WBC (Bld) 0.7 % [facility] Lymphocytes (Bld) [#/Vol] 2.56 10*3/uL 1.00 - 4.00 k/uL [facility] Lymphocytes/100 WBC (Bld) 27.9 % [facility] MCH (RBC) [Entitic mass] 30.3 pg 26.0 - 34.0 pg [facility] MCHC (RBC) [Mass/Vol] 34.3 g/dL 30.5 - 36.0 g/dL [facility] MCV (RBC) [Entitic vol] 88.4 fL 80.0 - 100.0 fL [facility] Monocytes (Bld) [#/Vol] 0.70 10*3/uL <0.87 k/uL [facility] Monocytes/100 WBC (Bld) 7.6 % [facility] Neutrophils (Bld) [#/Vol] 5.62 10*3/uL 1.45 - 7.50 k/uL [facility] Neutrophils/100 WBC (Bld) 61.1 % [facility] Nucleated RBC (Bld) [#/Vol] <0.01 k/uL [facility] Nucleated RBC/100 WBC (Bld) [Ratio] 0.0 /100 WBC [facility] Platelet mean volume (Bld) [Entitic vol] 11.5 fL 9.0 - 12.7 fL [facility] Platelets (Bld) [#/Vol] 348 10*3/uL 150 - 400 k/uL [facility] RBC (Bld) [#/Vol] 5.18 10*6/uL 4.20 - 6.0 0 m/uL [facility] WBC (Bld) [#/Vol] 9.18 10*3/uL 3.70 - 11. 00 k/uL [facility] CNOVon 10-30-2022 CNOV Office Visit (RHARMN ) BHAVESH CÁRDENAS ([id number]) 1975 M Date Time Provider Department 10/30/22 9:00 AM SANTANA HARRIS During your visit today, we recorded the following information about you: Temperature Pulse Blood pressure 95.6 degrees 68/minute 144/96 Santana Harris MD 10/30/2022 10:20 AM Signed ref: Shaikh Moi [address] [place] [id number] I have been asked to see Bhavesh Cárdenas for Osteoarthritis by Shaikh Moi [address] [place] [id number] HPI: Back pain for most of his lef. On the right side, just above the buttocks. The past six months it is painful picking up 24 pack of water. Leg drags on R a couple of times. Has fallen a couple of times. [place] like it lost control while walking. Has occasional sudden urgency to urinate. Has been incontinent of urine twice. Has tried physical therapy but the therapist told him to stop. PT found uneven hip height. Unable to lay on his back. Back munoz when laying on his side. Had MRI 08/2022. Showed a bulging disc and narrowing of spine. Had a bilateral L5-S1 nerve ablation. HISTORY: Low back pain ; chronic lumbar pain radiating into left leg; bilateral leg weakness COMPARISON: XR L-spine 08/10/2022 TECHNIQUE: A variety of imaging planes and parameters were utilized for visualization of suspected pathology. FINDINGS: For the purposes of numbering, sagittal T2 image # 8 extends from the T11 vertebral body superiorly to the S3 level inferiorly. PARASPINAL AREA: Normal with no visible mass. BONES: No fracture, pars defect, or osseous lesion. CORD/CAUDA EQUINA: Normal caliber, contour, and signal intensity. DISC LEVELS: 12-L1: No significant disc/facet abnormality, spinal stenosis, or foraminal stenosis. L1-L2: No significant disc/facet abnormality, spinal stenosis, or foraminal stenosis. L2-L3: No significant disc/facet abnormality, spinal stenosis, or foraminal stenosis. L3-L4: No significant disc/facet abnormality, spinal stenosis, or foraminal stenosis. L4-L5: Early degenerative disc disease is present without focal protrusion or neural impingement. L5-S1: Marked right, moderate left foramen narrowing without significant central canal narrowing. Moderate diffuse disc bulging and mild disc height reduction. Mild degenerative facet arthropathy bilaterally. IMPRESSION: 1. Marked right and moderate left foramen narrowing at L5-S1 secondary to moderate degenerative disc disease and mild degenerative facet arthropathy. It is noted that patient history describes symptoms involving left leg. Has small bumps on his DIP joints Has noticed decrease in collections agent strength. Hands swell. Has pain worse first in the morning and late at night. Discomfort in back of neck and shoulders . No rashes. No headaches. No eye problems. No bowel symptoms. No oral ulcers. Unable to work due to back pain CTD ROS:constitutional: no fevers, chills, night sweats, sleep disturbance, daytime fatigue skin- no rashes or ulcers, no hair loss ent- no oral ulcers, dry mouth or dry eyes chest- no cough , wheezes heart- no chest pain , SOB, MOON, orthopnea abd- no GI complaints, no nausea of vomiting, no constipation gu- No nocturia, no hematuria or change in urine stream or frequency joints- see HPI ext- no edema/ swelling. no raynaud's heme: no bleeding, no history of DVT; no history of recurrent infections. neuro-NEG for migraine headaches. Neg for numbness or tingling Answers submitted by the patient for this visit: Review of Systems Rheumatology (Submitted on 10/29/2022) Fever : No Recent Unintentional Weight Change: No Eye Pain: No Eye Redness: No Vision Disturbance: No Eye Dryness: No Nose Bleeds: No Sores in your Mouth: No Trouble Swallowing: No Dry Mouth: No Chest Pain: No Leg Swelling: No A Cough: No Shortness of Breath: No Pain with Breathing: No Heartburn: No Abdominal Pain: No Diarrhea: No Black Tarry Stools: No Blood in Urine: No Pain or Burning with Urination: No Joint Pain or Stiffness: Yes Muscle Weakness: Yes Muscle Aches: Yes Joint Swelling: Yes Morning Stiffness in Joints: Yes A Rash: No Skin Color Changes: No Hair Loss: No Nail Changes: No Headaches: No Numbness: No Memory Loss: No Swollen Glands: No There is no problem list on file for this patient. PAST MEDICAL HISTORY Diagnosis Date Diabetes mellitus (HCC) No past surgical history on file. Social History Tobacco Use Smoking status: Never Smokeless tobacco: Never FAMILY HISTORY Problem Relation Age of Onset Multiple Sclerosis Father Arthritis Father Prostate Cancer Father Glaucoma Son obj: PHYSICAL EXAMINATION: BP 144/96 Pulse 68 Temp (!) 35.3 ?C (95.6 ?F) (Temporal) General appearance: Well appearing, alert, in no acute distress, well-hydrated, well nourishe (more content not included)... Normal [facility] CRP SerPl-mCncon 10-30-2022 CRP [Mass/Vol] mg/L Normal <0.9 [facility] Comment on above: Order Comment: Speci men Type: BLOOD SPECIMENOrdering Facility: [facility] Address: [address] [place] [phone] Performed By: #### 1 988-5, 59309-7, 17085-0 ####[facility] LABCLIA [id number] [facility] [id number] OF [facility] Comprehensive metabolic 2000 panelon 10-30-2022 Albumin [Mass/Vol] 4.5 g/dL 3.9 - 4.9 g/dL [facility] ALP [Catalytic activity/Vol] 115 U/L High 38 - 113 U/L [facility] ALT [Catalytic activity/Vol] 19 U/L 10 - 54 U/L [facility] Anion gap [Moles/Vol] 14 mmol/L 9 - 18 mmol/L [facility] AST [Catalytic activity/Vol] 15 U/L 14 - 40 U/L [facility] Bilirubin [Mass/Vol] 0.5 mg/dL 0.2 - 1 .3 mg/dL [facility] Calcium [Mass/Vol] 9.5 mg/dL 8.5 - 10. 2 mg/dL [facility] Chloride [Moles/Vol] 94 mmol/L Low 97 - 10 5 mmol/L [facility] CO2 [Moles/Vol] 25 mmol/L 22 - 30 mmol/L [facility] Creatinine [Mass/Vol] 0.72 mg/dL Low 0.73 - 1.22 mg/dL [facility] Estimated Glomerular Filtration Rate 113 mL/min/1.73m >=60 mL/min/1.73m [facility] Glucose [Mass/Vol] 372 mg/dL High 74 - 99 mg/dL [facility] Potassium [Moles/Vol] 4.5 mmol/L 3.7 - 5.1 mmol/L [facility] Protein [Mass/Vol] 7.5 g/dL 6.3 - 8.0 g/dL [facility] Sodium [Moles/Vol] 133 mmol/L Low 136 - 144 mmol/L [facility] Urea nitrogen [Mass/Vol] 15 mg/dL 9 - 24 mg/dL [facility] Albumin [Mass/Vol] 4.5 g/dL Normal 3.9-4.9 [facility] [facility] Comment on above: Order Comment: Speci men Type: BLOOD SPECIMENOrdering Facility: [facility] Address: [address] [place] [address] Performed By: #### 1 988-5, 37101-8, 16827-8 ####[facility] LABCLIA [id number] [place] [address] [place] ALP [Catalytic activity/Vol] 115 U/L High 38-113 [facility] Comment on above: Order Comment: Speci men Type: BLOOD SPECIMENOrdering Facility: [facility] Address: [address] [place] [address] Performed By: #### 1 988-5, 18107-1, 60888-4 ####[facility] LABCLIA [id number] [place] [address] [place] ALT [Catalytic activity/Vol] 19 U/L Normal 10-54 [facility] Comment on above: Order Comment: Speci men Type: BLOOD SPECIMENOrdering Facility: [facility] Address: [address] [place] [address] Performed By: #### 1 988-5, 19109-4, 15918-9 ####[facility] LABCLIA [id number] [place] [address] [place] Anion gap [Moles/Vol] 14 mmol/L Normal 9-18 [facility] Comment on above: Order Comment: Speci men Type: BLOOD SPECIMENOrdering Facility: [facility] Address: [address] [place] [address] Performed By: #### 1 988-5, 58266-2, 04571-2 ####[facility] LABCLIA [id number] [place] [address] [place] AST [Catalytic activity/Vol] 15 U/L Normal 14-40 [facility] Comment on above: Order Comment: Speci men Type: BLOOD SPECIMENOrdering Facility: [facility] Address: [address] [place], [place] [address] Performed By: #### 1 988-5, 80121-3, 48530-3 ####[facility] LABCLIA [id number] [place] [address] [place] Bilirubin [Mass/Vol] 0.5 mg/dL Normal 0.2-1.3 [facility] Comment on above: Order Comment: Speci men Type: BLOOD SPECIMENOrdering Facility: [facility] Address: [place] [address] Performed By: #### 1 988-5, 27886-9, 76874-5 ####[facility] LABCLIA [id number] [place] [address] [place] Calcium [Mass/Vol] 9.5 mg/dL Normal 8.5-10.2 [facility] Comment on above: Order Comment: Speci men Type: BLOOD SPECIMENOrdering Facility: [facility] Address: [place] [address] Performed By: #### 1 988-5, , 32535-7 ####[facility] LABCLIA [id number] [place] [address] [place] Chloride [Moles/Vol] 94 mmol/L Low 97-105 [facility] Comment on above: Order Comment: Speci men Type: BLOOD SPECIMENOrdering Facility: [facility] Address: [place] [address] Performed By: #### 1 988-5, , ####[facility] LABCLIA [id number] [place] [address] [place] CO2 [Moles/Vol] 25 mmol/L Normal 22-30 [facility] Comment on above: Order Comment: Speci men Type: BLOOD SPECIMENOrdering Facility: [facility] Address: [place] [address] Performed By: #### 1 988-5, , 90473-3 ####[facility] LABCLIA [id number] [address] [address] [place] Creatinine [Mass/Vol] 0.72 mg/dL Low 0.73-1.22 [facility] Comment on above: Order Comment: Marina ernst Type: BLOOD SPECIMENOrdering Facility: [facility] Address: [address] [place] [id number] Performed By: #### 1 988-5, 06394-4, 82634-6 ####[facility] LABCLIA [id number] [place] [address] [place] ESTIMATED GLOMERULAR FILTRATION RATE 113 mL/min/1.73m??? Normal >=60 [facility] Comment on above: Order Comment: Marina ernst Type: BLOOD SPECIMENOrdering Facility: [facility] Address: [address] Result Comment: Yola mated Glomerular Filtration Rate (eGFR) is calculated using the 2020 CKD-EPI creatinine equation. This equation utilizes serum creatinine, sex, and age as parameters. The creatinine assay has traceable calibration to isotope dilution-mass spectrometry. Refer to KDIGO guidelines for clinical interpretation. In patients with unstable renal function, e.g. those with acute kidney injury, the eGFR may not accurately reflect actual GFR. Performed By: #### 1 988-5, 99403-2, 01393-1 ####[facility] LABCLIA [id number] [place] [address] [place] Glucose [Mass/Vol] 372 mg/dL High 74-99 [facility] Comment on above: Order Comment: Marina ernst Type: BLOOD SPECIMENOrdering Facility: [facility] Address: [address] [place] [id number] Result Comment: The [place] Diabetes Association (ADA) provides guidance for cutoff values for fasting glucose and random glucose. The ADA defines fasting as no caloric intake for at least 8 hours. Fasting plasma glucose results between 100 to 125 mg/dL indicate increased risk for diabetes (prediabetes). Fasting plasma glucose results greater than or equal to 126 mg/dL meet the criteria for diagnosis of diabetes. In the absence of unequivocal hyperglycemia, results should be confirmed by repeat testing. In a patient with classic symptoms of hyperglycemia or hyperglycemic crisis, random plasma glucose results greater than or equal to 200 mg/dL meet the criteria for diagnosis of diabetes. Reference: Standards of Medical Care in Diabetes 2016, [place] Diabetes Association. Diabetes Care. 2016.39(Suppl 1). Performed By: #### 1 988-5, 27714-4, 34992-9 ####[facility] LABCLIA [id number] [address] [address] [place] Potassium [Moles/Vol] 4.5 mmol/L Normal 3.7-5.1 [facility] Comment on above: Order Comment: Speci men Type: BLOOD SPECIMENOrdering Facility: [facility] Address: [address] [place] [address] Performed By: #### 1 988-5, 03328-1, 22310-8 ####[facility] LABIA [id number] [place] [address] [place] Protein [Mass/Vol] 7.5 g/dL Normal 6.3-8.0 [facility] Comment on above: Order Comment: Speci men Type: BLOOD SPECIMENOrdering Facility: [facility] Address: [address] [place] [address] Performed By: #### 1 988-5, 51437-8, 72690-1 ####[facility] LABIA [id number] [place] [address] [place] Sodium [Moles/Vol] 133 mmol/L Low 136-144 [facility] Comment on above: Order Comment: Speci men Type: BLOOD SPECIMENOrdering Facility: [facility] Address: [address] [place] [phone] Performed By: #### 1 988-5, 28390-9, 14680-5 ####[facility] LABIA [id number] [place] [id number] [place] Urea nitrogen [Mass/Vol] 15 mg/dL Normal 9-24 [facility] Comment on above: Order Comment: Speci men Type: BLOOD SPECIMENOrdering Facility: [facility] Address: [address] Performed By: #### 1 988-5, 52059-2, 68456-4 ####[facility] LABCLIA [id number] [address] [place] Cyclic citrullinated peptide IgG Qnon 10-30-2022 CCP ANTIBODY IGG QUALITATIVE Negative Normal Negative [facility] Comment on above: Order Comment: Speci men Type: BLOOD SPECIMENOrdering Facility: [facility] Address: [address] [place] [address] Performed By: #### 3 3935-8 ####[facility] LABIA [id number] [place] [address] [place] ESR Westergren method (Bld) [Velocity]on 10-30-2022 ESR (Bld) [Velocity] 8 mm/h Normal 0-15 [facility] Comment on above: Order Comment: Speci men Type: BLOOD SPECIMENOrdering Facility: [facility] Address: [address] [place] [address] Performed By: #### 5 7021-8, 4537-7 ####[facility] LABIA [id number] [address] [place] No Panel Informationon 10-30 [facility] RHEUMATOID FACTOR BLon 10-30 Rheumatoid factor Qn <16 IU/mL [facility] Rheumatoid fact SerPl-aCncon 10-30-2022 Rheumatoid factor Qn [IU]/mL Normal <16 [facility] Comment on above: Order Comment: Speci men Type: BLOOD SPECIMENOrdering Facility: [facility] Address: [address] [place] [address] Performed By: #### 1 988-5, 55896-7, 61237-9 ####[facility] LABCLIA [id number] [place] [address] [place] Urinalysis complete panel (U )on 10-30-2022 Bilirubin Ql (U) Negative Negative [facility] Clarity (Unsp spec) Clear Clear [facility] Color (U) Light Yellow Yellow [facility] Epithelial cells LM.HPF (Urine sed) [#/Area] Few [facility] Glucose Test strip (U) [Mass/Vol] 4+ Abnormal Trace, Negative [facility] Hemoglobin Ql (U) Negative Negative, Trace [facility] Ketones Ql (U) 1+ Abnormal Trace, Negative [facility] Leukocyte esterase Test strip Ql (U) Negative Negative, 25 Onesimo/mL [facility] Nitrite Ql (U) Negative Negative [facility] pH (U) 5.5 [pH] 5.0 - 8.0 [facility] Protein (U) [Mass/Vol] Trace Trace, Negative [facility] RBC LM.HPF (Urine sed) [#/Area] 0-3 /HPF 0-3 /HPF [facility] Specific gravity (U) [Rel density] 1.041 High 1.005 - 1.030 [facility] Urobilinogen Ql (U) Negative Negative [facility] WBC LM.HPF (Urine sed) [#/Area] 0-5 /HPF 0-5 /HPF [facility] Bilirubin Ql (U) Negative Normal Negative [facility] Comment on above: Order Comment: Speci men Type: URINE SPECIMENOrdering Facility: [facility] Address: [address] [place] [address] Performed By: #### 2 4356-8 ####[facility] [id number] [place] [address] [place] Clarity (Unsp spec) Clear Normal Clear [facility] Comment on above: Order Comment: Speci men Type: URINE SPECIMENOrdering Facility: [facility] Address: [address] [place] [address] Performed By: #### 2 4356-8 ####[facility] LABIA [id number] [place] [address] [place] Color (U) Light Yellow Normal Yellow [facility] Comment on above: Order Comment: Speci men Type: URINE SPECIMENOrdering Facility: [facility] Address: [address] [place], [place] [address] Performed By: #### 2 4356-8 ####[facility] LABCLIA [id number] [place] [address] [place] Epithelial cells LM.HPF (Urine sed) [#/Area] Few Normal [facility] Comment on above: Order Comment: Speci men Type: URINE SPECIMENOrdering Facility: [facility] Address: [address] [place], [place] [address] Performed By: #### 2 4356-8 ####[facility] LABCLIA [id number] [place] [address] [place] Glucose Test strip (U) [Mass/Vol] 4+ Abnormal Trace, Negative [facility] Comment on above: Order Comment: Speci men Type: URINE SPECIMENOrdering Facility: [facility] Address: [address] [place] [address] Performed By: #### 2 4356-8 ####[facility] LABCLIA [id number] [place] [address] [place] Hemoglobin Ql (U) Negative Normal Negative, Trace [facility] Comment on above: Order Comment: Speci men Type: URINE SPECIMENOrdering Facility: [facility] Address: [address] [place], [place] [address] Performed By: #### 2 4356-8 ####[facility] LABCLIA [id number] [place] [address] [place] Ketones Ql (U) 1+ Abnormal Trace, Negative [facility] Comment on above: Order Comment: Speci men Type: URINE SPECIMENOrdering Facility: [facility] Address: [address] [place], [place] [address] Performed By: #### 2 4356-8 ####[facility] LABCLIA [id number] [place] [address] [place] Leukocyte esterase Test strip Ql (U) Negative Normal Negative, 25 Onesimo/mL [facility] Comment on above: Order Comment: Speci men Type: URINE SPECIMENOrdering Facility: [facility] Address: [address] [place] [address] Performed By: #### 2 4356-8 ####[facility] LABCLIA [id number] [place] [address] [place] Nitrite Ql (U) Negative Normal Negative [facility] Comment on above: Order Comment: Speci men Type: URINE SPECIMENOrdering Facility: [facility] Address: [address] [place] [address] Performed By: #### 2 4356-8 ####[facility] LABCLIA [id number] [place] [address] [place] pH (U) 5.5 [pH] Normal 5.0-8.0 [facility] Comment on above: Order Comment: Speci men Type: URINE SPECIMENOrdering Facility: [facility] Address: [address] [place] [address] Performed By: #### 2 4356-8 ####[facility] LABCLIA [id number] [place] [address] [place] Protein (U) [Mass/Vol] Trace Normal Trace, Negative [facility] Comment on above: Order Comment: Speci men Type: URINE SPECIMENOrdering Facility: [facility] Address: [address] [place], [place] [address] Performed By: #### 2 4356-8 ####[facility] LABCLIA [id number] [place] [address] [place] RBC LM.HPF (Urine sed) [#/Area] 0-3 /HPF Normal 0-3 /HPF [facility] Comment on above: Order Comment: Speci men Type: URINE SPECIMENOrdering Facility: [facility] Address: [address] [place], [place] [address] Performed By: #### 2 4356-8 ####[facility] LABCLIA [id number] [place] [address] [place] Specific gravity (U) [Rel density] 1.041 High 1.005-1.030 [facility] Comment on above: Order Comment: Speci men Type: URINE SPECIMENOrdering Facility: [facility] Address: [address] [place] [address] Performed By: #### 2 4356-8 ####[facility] LABIA [id number] [place] [address] [place] Urobilinogen Ql (U) Negative Normal Negative [facility] Comment on above: Order Comment: Speci men Type: URINE SPECIMENOrdering Facility: [facility] Address: [address] [place] [address] Performed By: #### 2 4356-8 ####[facility] [id number] [place] [address] [place] WBC LM.HPF (Urine sed) [#/Area] 0-5 /HPF Normal 0-5 /HPF [facility] Comment on above: Order Comment: Speci men Type: URINE SPECIMENOrdering Facility: [facility] Address: [address] [place] [address] Performed By: #### 2 4356-8 ####[facility] [id number] [place] [address] [place] XR HAND/WRIST SURVEY 1V PA B ILon 10-30-2022 XR HAND/WRIST SURVEY 1V PA MAYURI * * *Final Report* * * DATE OF EXAM: Oct 30 2022 10:33AM AOX 5349 - XR HAND/WRIST SURVEY 1V PA MAYURI / PROCEDURE REASON: multiple diagnoses * * * * Physician Interpretation * * * * EXAMINATION: XR HAND/WRIST SURVEY 1V PA MAYURI HISTORY: Bilateral hand/wrist pain. With swelling. Localized, primary osteoarthritis of hand, unspecified laterality Arthritis Chronic right-sided low back pain without sciatica Chronic right-sided low back pain without sciatica. TECHNIQUE: XR HAND/WRIST SURVEY 1V PA MAYURI Laterality: BILATERAL Number of different views (projections): 1 M: XB_1 COMPARISON: RESULT: Joint spaces and carpal rows are maintained. No significant chondrocalcinosis. No acute fracture or dislocation. There are no bony erosions. IMPRESSION: No radiographic findings of inflammatory arthropathy. Naphthalene Operator: JUANCARLOS Transcribe Date/Time: Oct 30 2022 10:39A Dictated by : OLAYINKA SARGENT MD This examination was interpreted and the report reviewed and electronically signed by: OLAYINKA SARGENT MD on Oct 30 2022 10:39AM EST [id number] Normal [facility] cCP IgG SerPl-aCncon 023 Cyclic citrullinated peptide IgG Qn <15 Normal <20 [facility] Comment on above: Order Comment: Speci men Type: BLOOD SPECIMENOrdering Facility: [facility] Address: [address] [place] [address] Performed By: #### 3 3935-8 ####[facility] LABCLIA [id number] [address] OF [facility] CNOVon 10-19-2022 CNOV Office Visit (SPMESH ) BHAVESH CÁRDENAS ([id number]) 1975 M Date Time Provider Department 10/19/22 1:15 PM OLAYINKA BOYD SPMDK During your visit today, we recorded the following information about you: Pulse Blood pressure Weight Height 85/minute 135/75 93 kg 1.626 m Olayinka Boyd PA-C 10/19/2022 1:38 PM Signed [facility] Low Back Pain - Chronic (> 12 weeks) Initial Exam SUBJECTIVE HISTORY OF PRESENT ILLNESS: Bhavesh Cárdenas is a 46 year old male who presents with a chief complaint of low back pain and is seen in consultation requested by for an opinion regarding chronic low back pain. My final recommendations will be communicated back to the requesting physician by way of shared medical record or letter via US mail. Patient is here with the complaint of pain in the mid part of the lower back for about 4 years, says this will sometimes radiate to the R groin and anterior thigh, as well as the entire legs bilaterally. No known injury to cause the pain. He had previously seen pain management where he had RFA done with only about 3 weeks worth of relief. Has done PT and has seen a surgeon near his home who did not feel he was a surgical candidate. Legs will sometimes give out on him. Weakness is not constant. Takes gabapentin 300mg TID as well as opiates when the pain is severe. Pain is worse with activity. He brings MRI from [facility] Other Issues Addressed at the Visit Today: None. Precipitating Event: None PAIN EVALUATION 10/19/2022 1126 10/19/2022 1300 Pain Level: 7 6 Pain Location: Back-Lower Back-Lower Description: Burning;Pressure;Rommel p;Throbbing Burning;Sharp;Stabbin g Duration Amount of Time: -- 4 Duration Units: Months Years Frequency: Continuous Continuous Intervention/Comfort measure: -- Exercise;Heat;Therape utic techniques-CPRP Comments: -- has also had shots to burn the nerve, and physical therapy YELLOW AND BLUE FLAGS No-Neg Attitude; Back Pain is Disabling No-Avoiding Activity (for Fear of Pain) No-Depression or Anxiety Disorders No-Social Problems No-Substance Use Disorder No-Job Dissatisfaction No-Financial Disincentives Patient Entered Questionnaires Spine Questions 10/19/2022 Pain Location: Lower back Pain Duration: 1 to 5 years Pain over last 6 months: Every day or nearly every day in the past 6 months Symptoms from neck/cervical spine: Yes Employment Status: Looking for work, unemployed Off work 1 month or more due to back/neck pain: Does not apply Applied for/receive disability/WC due to low back/neck pain Does not apply Involved in law suit/legal claim: No Spine Red Flags 10/19/2022 Any type of cancer: No Unexplained fever: No Bowel or bladder disfunction: Yes Unintentional weight loss: No Osteoporosis: No Neck Questionnaires 10/19/2022 Benzel Modified BRANDIE Score 13 (A lower score indicates increased pain and issues.) PROMIS Score Percentiles Physical Health 10/19/2022 Physical Function Percentile 2 Sleep Percentile 2 Fatigue Percentile 8 Pain Interference Percentile 1 PROMIS Global Health Scale 10/19/2022 Physical Health Percentile 2 Percentiles provide an indication of how the patient's score ranks in relation to the general population. Higher percentile rankings indicate better function/quality of life. 50th percentile is the average of the general population and indicates half of respondents had a worse score. Depression Screening: PHQ-9 10/19/2022 Score 21 PHQ-9 Self Harm 10/19/2022 Question 9 More than half the days PHQ-9 Self-Harm (Item 9) response options: 0 Not at all 1 Several days 2 More than half the days 3 Nearly every day PHQ-9 Levels: 0-4 No - mild depression 5-9 Mild depression 10-14 Moderate depression 15-19 Moderately severe depression 20-27 Severe depression There is no problem list on file for this patient. No past medical history on file. No past surgical history on file. No family history on file. ALLERGIES Not on File CURRENT MEDICATIONS: No prescriptions on file. REVIEW OF SYSTEMS: OBJECTIVE: PHYSICAL EXAM There were no vitals taken for this visit. GENERAL APPEARANCE: Well appearing, well-hydrated, well nourished and alert SKIN: Head, neck, trunk, and extremities dry, intact and without lesions HEART: Regular rate and rhythym, Murmur negative LUNGS: even and non-labored breathing, normal chest excursion LYMPHATICS: No palpable lymphadenopathy in the neck, axilla, or groin NEURO/PSYCH: oriented to time, place, and person, speech normal, mental status intact GAIT: normal, toe walking normal, heel walking normal, able to tandem gait POSTURE: Posture and spinal curves are normal PALPATION: paraspinal tenderness; lumbar MUSCULOSKELETAL: Extended Low Back AND Leg Exam Lumbar Range of Motion Flexion N/A Extension Normal RIGHT LEFT Lateral (more content not included)... Normal [facility] XR hip RT min 2V(w/wo pelvis )*on 09-28-2022 XR hip RT min 2V(w/wo pelvis)* [facility] [place] [address] [place] [address] XRay Report Signed Patient: Bhavesh Cárdenas MR#: [id number] : 1975 Acct:[id number] Age/Sex: 46 / M ADM Date: 09/28/22 [place] [facility] [place] Type[place] [facility] Attending Dr: Milton Valentine II, MD Copies to: Milton Valentine MD Ordering Provider: Milton Valentine MD Date of Service: 09/28/22 XR/XR hip RT min 2V(w/wo pelvis)*: Right hip pain RIGHT HIP - 2 views: CLINICAL HISTORY: Right groin pain for the past 6 months. No injury. COMPARISON: None AP view the pelvis and and crosstable lateral views of the right hip were obtained. There is no evidence of fracture or dislocation. The hip joint spaces are symmetric. No prominent hypertrophy is seen. There are no significant soft tissue abnormalities. XR/XR hip RT min 2V(w/wo pelvis)* IMPRESSION: NO ACUTE BONY FINDINGS. Impression dictated by: Polina Cabrera M.D.09/28/2022 2:28 PM Dictation Location: [place] [address] Transcribed By: [facility] 09/28/22 142 Dictated By: Polina Cabrera MD 09/28/22 1426 Signed By: 09/28/22 142 Normal [facility] XR hip RT min 2V(w/wo pelvis)* [facility] Other XR hip RT min 2V(w/wo pelvis)* [facility] [place] [employer] Other XR hip RT min 2V(w/wo pelvis)* [address] [place] [address] [employer] Other XR hip RT min 2V(w/wo pelvis)* [place] [address] [employer] Other XR hip RT min 2V(w/wo pelvis)* XRay Report [employer] Other XR hip RT min 2V(w/wo pelvis)* Signed [employer] Other XR hip RT min 2V(w/wo pelvis)* Patient: Bhavesh Cárdenas MR#: [id number] [employer] Other XR hip RT min 2V(w/wo pelvis)* 7937 [employer] Other XR hip RT min 2V(w/wo pelvis)* : 1975 Acct:[id number] [employer] Other XR hip RT min 2V(w/wo pelvis)* Age/Sex: 46 / M ADM Date: 09/28/22 [employer] Other XR hip RT min 2V(w/wo pelvis)* [place] [facility] [place]: Type: [facility] [employer] Other XR hip RT min 2V(w/wo pelvis)* Attending Dr: Milton Valentine II, MD [employer] Other XR hip RT min 2V(w/wo pelvis)* Copies to: Milton Valentine MD [employer] Other XR hip RT min 2V(w/wo pelvis)* Ordering Provider: Milton Valentine MD [employer] Other XR hip RT min 2V(w/wo pelvis)* Date of Service: 09/28/22 [employer] Other XR hip RT min 2V(w/wo pelvis)* XR/XR hip RT min 2V(w/wo pelvis)*: Right hip pain [employer] Other XR hip RT min 2V(w/wo pelvis)* RIGHT HIP - 2 views: Victoria Plumb Other XR hip RT min 2V(w/wo pelvis)* CLINICAL HISTORY: Right groin pain for the past 6 months. No injury. [employer] Other XR hip RT min 2V(w/wo pelvis)* COMPARISON: None [employer] Other XR hip RT min 2V(w/wo pelvis)* AP view the pelvis and and crosstable lateral views of the right hip were obtained. There is no [employer] Other XR hip RT min 2V(w/wo pelvis)* evidence of fracture or dislocation. The hip joint spaces are symmetric. No prominent hypertrophy [employer] Other XR hip RT min 2V(w/wo pelvis)* is seen. There are no significant soft tissue abnormalities. [employer] Other XR hip RT min 2V(w/wo pelvis)* XR/XR hip RT min 2V(w/wo pelvis)* [employer] Other XR hip RT min 2V(w/wo pelvis)* IMPRESSION: [employer] Other XR hip RT min 2V(w/wo pelvis)* NO ACUTE BONY FINDINGS. [employer] Other XR hip RT min 2V(w/wo pelvis)* Impression dictated by: Polina Cabrera M.D.09/28/2022 2:28 PM [employer] Other XR hip RT min 2V(w/wo pelvis)* Dictation Location: [place] [id number] [employer] Other XR hip RT min 2V(w/wo pelvis)* Transcribed By: WENDIE 09/28/22 1428 [employer] Other XR hip RT min 2V(w/wo pelvis)* Dictated By: Polina Cabrera MD 09/28/22 142 [employer] Other XR hip RT min 2V(w/wo pelvis)* Signed By: [employer] Other XR hip RT min 2V(w/wo pelvis)* 09/28/22 1428 [employer] Other MRI LSPINE WO CONon 08-18-20 MRI LSPINE WO CON EXAMINATION: MRI LSPINE WO CON HISTORY: Low back pain ; chronic lumbar pain radiating into left leg; bilateral leg weakness COMPARISON: XR L-spine 08/10/2022 TECHNIQUE: A variety of imaging planes and parameters were utilized for visualization of suspected pathology. FINDINGS: For the purposes of numbering, sagittal T2 image # 8 extends from the T11 vertebral body superiorly to the S3 level inferiorly. PARASPINAL AREA: Normal with no visible mass. BONES: No fracture, pars defect, or osseous lesion. CORD/CAUDA EQUINA: Normal caliber, contour, and signal intensity. DISC LEVELS: 12-L1: No significant disc/facet abnormality, spinal stenosis, or foraminal stenosis. L1-L2: No significant disc/facet abnormality, spinal stenosis, or foraminal stenosis. L2-L3: No significant disc/facet abnormality, spinal stenosis, or foraminal stenosis. L3-L4: No significant disc/facet abnormality, spinal stenosis, or foraminal stenosis. L4-L5: Early degenerative disc disease is present without focal protrusion or neural impingement. L5-S1: Marked right, moderate left foramen narrowing without significant central canal narrowing. Moderate diffuse disc bulging and mild disc height reduction. Mild degenerative facet arthropathy bilaterally. IMPRESSION: 1. Marked right and moderate left foramen narrowing at L5-S1 secondary to moderate degenerative disc disease and mild degenerative facet arthropathy. It is noted that patient history describes symptoms involving left leg. Electronically authenticated by: DIANA GUZMÁN Date: 2022-08-18 16:57 Normal [facility] XR LSPINE 2_3 VIEWSon 2021 XR LSPINE 2_3 VIEWS EXAMINATION: XR LSPINE 2_3 VIEWS HISTORY: Low back pain COMPARISON: No relevant comparison available. FINDINGS: BONES: Normal alignment with no acute fracture or spondylolisthesis. Mild degenerative spondylosis. Moderate facet osteoarthropathy L5-S1 DISC SPACES: Disc space narrowing L5-S1 PARASPINOUS: Negative. No paraspinous abnormality is seen. OTHER: Negative. IMPRESSION: Degenerative changes most significant at L5-S1 Electronically authenticated by: WASHINGTON DURAN Date: 2022-08-10 18:50 Normal [facility] Vital Signs Date Time Vital Sign Value Performing Clinician Facility 09-13-2023 14:40-0500 Body height 163.83 cm Francis Barr Other [facility] Other 09-13-2023 14:40-0500 Body mass index (BMI) [Ratio] 40.39 kg/m2 Francis Barr Other [facility] Other 09-13-2023 14:40-0500 Body weight 108.41 kg Francis Barr Other [facility] Other 08-24-2023 14:24-0500 Body temperature 98.9 [degF] MD Shaikh Prater Work Phone: [facility] 08-24-2023 14:24-0500 Diastolic blood pressure 80 mm[Hg] MD Shaikh Prater Work Phone: [facility] 08-24-2023 14:24-0500 Heart rate 84 /min MD Shaikh Prater Work Phone: [facility] 08-24-2023 14:24-0500 Respiratory rate 20 /min MD Shaikh Prater Work Phone: [facility] 08-24-2023 14:24-0500 SaO2% (BldA) [Mass fraction] 96 % MD Shaikh Prater Work Phone: [facility] 08-24-2023 14:24-0500 Systolic blood pressure 168 mm[Hg] MD Shaikh Prater Work Phone: [facility] 08-24-2023 14:22-0500 Body height 162.56 cm MD Shaikh Prater Work Phone: [facility] 08-24-2023 14:22-0500 Body weight 109.1 kg MD Shaikh Prater Work Phone: [facility] 08-02-2023 14:05-0400 Body height 163.83 cm Carmen Washington Other [facility] Other 08-02-2023 14:05-0400 Body mass index (BMI) [Ratio] 40.39 kg/m2 Carmen Perdomomaureen Other [facility] Other 08-02-2023 14:05-0400 Body temperature 97.7 [degF] Carmen Perdomomaureen Other [facility] Other 08-02-2023 14:05-0400 Body weight 108.41 kg Carmen Felix Other [facility] Other 08-02-2023 14:05-0400 Diastolic blood pressure 76 mm[Hg] Carmen Felix Other [facility] Other 08-02-2023 14:05-0400 Respiratory rate 18 /min Carmen Felix Other [facility] Other 08-02-2023 14:05-0400 SaO2% (BldA) [Mass fraction] 98 % Carmen Felix Other [facility] Other 08-02-2023 14:05-0400 Systolic blood pressure 120 mm[Hg] Carmen Felix Other [facility] Other 01-27-2023 10:40-0400 Body height 162.56 cm EMERGENCY DEPARTMENT TECHNICIAN-BC Kristina Bullimore Work Phone: [facility] 01-27-2023 10:40-0400 Body temperature 97.6 [degF] EMERGENCY DEPARTMENT TECHNICIAN-BC Kristina Bullimore Work Phone: [facility] 01-27-2023 10:40-0400 Body weight 96 kg EMERGENCY DEPARTMENT TECHNICIAN-BC Kristina Bullimore Work Phone: [facility] 01-27-2023 10:40-0400 Diastolic blood pressure 87 mm[Hg] EMERGENCY DEPARTMENT TECHNICIAN-BC Kristina Bullimore Work Phone: [facility] 01-27-2023 10:40-0400 Heart rate 86 /min EMERGENCY DEPARTMENT TECHNICIAN-BC Kristina Bullimore Work Phone: [facility] 01-27-2023 10:40-0400 Respiratory rate 18 /min EMERGENCY DEPARTMENT TECHNICIAN-BC Kristina Bullimore Work Phone: [facility] 01-27-2023 10:40-0400 SaO2% (BldA) [Mass fraction] 97 % EMERGENCY DEPARTMENT TECHNICIAN-BC Kristina Bullimore Work Phone: [facility] 01-27-2023 10:40-0400 Systolic blood pressure 143 mm[Hg] EMERGENCY DEPARTMENT TECHNICIAN-BC Kristina Bullimore Work Phone: [facility] 11-24-2022 10:01-0500 Body temperature 98.2 [degF] Spine Main Work Phone: [facility] 11-24-2022 10:01-0500 Diastolic blood pressure 94 mm[Hg] Sp[facility] Main Work Phone: [facility] 11-24-2022 10:01-0500 Heart rate 89 /min Sp[facility] Main Work Phone: [facility] 11-24-2022 10:01-0500 Respiratory rate 18 /min Sp[facility] Main Work Phone: [facility] 11-24-2022 10:01-0500 SaO2% (BldA) [Mass fraction] 97 % [facility] Main Work Phone: [facility] 11-24-2022 10:01-0500 Systolic blood pressure 140 mm[Hg] Sp[facility] Main Work Phone: [facility] 11-15-2022 14:10-0500 Diastolic blood pressure 87 mm[Hg] Kb Tankha DO Work Phone: [facility] 02-08-2023 14:10-0500 Heart rate 90 /min Kb Tankha DO Work Phone: [facility] 11-15-2022 14:10-0500 Respiratory rate 18 /min Kb Tankha DO Work Phone: [facility] 11-15-2022 14:10-0500 SaO2% (BldA) [Mass fraction] 96 % Kb Tankha DO Work Phone: [facility] 11-15-2022 14:10-0500 Systolic blood pressure 121 mm[Hg] Kb Tankha DO Work Phone: [facility] 10-30-2022 09:31-0500 Body temperature 95.59 [degF] Santana Harris MD Work Phone: [facility] 10-30-2022 09:31-0500 Diastolic blood pressure 96 mm[Hg] Santana Harris MD Work Phone: [facility] 10-30-2022 09:31-0500 Heart rate 68 /min Santana Harris MD Work Phone: [facility] 10-30-2022 09:31-0500 Systolic blood pressure 144 mm[Hg] Santana Harris MD Work Phone: [facility] 10-19-2022 13:04-0500 Body height 162.6 cm Olayinka Boyd PA-C Work Phone: [facility] 10-19-2022 13:04-0500 Body weight 92.99 kg Olayinka Boyd PA-C Work Phone: [facility] 10-19-2022 13:04-0500 Diastolic blood pressure 75 mm[Hg] Olayinka GEORGE-Tere Work Phone: [facility] 10-19-2022 13:04-0500 Heart rate 85 /min Olayinka GEORGE-Tere Work Phone: [facility] 10-19-2022 13:04-0500 SaO2% (BldA) [Mass fraction] 97 % Olayinka Boyd PA-C Work Phone: [facility] 10-19-2022 13:04-0500 Systolic blood pressure 135 mm[Hg] Olayinka Boyd PA-C Work Phone: [facility] 09-28-2022 12:30-0500 Body height 163.83 cm Milton Nicolasisle II Other [employer] Other 09-28-2022 12:30-0500 Body mass index (BMI) [Ratio] 34.47 kg/m2 Milton Nicolasisle II Other [employer] Other 09-28-2022 12:30-0500 Body weight 92.53 kg Milton Herkimer II Other [facility] Other 09-26-2022 11:00-0500 Body height 163.83 cm Francis Barr Other [employer] Other 09-26-2022 11:00-0500 Body mass index (BMI) [Ratio] 34.47 kg/m2 Francis Barr Other [facility] Other 09-26-2022 11:00-0500 Body weight 92.53 kg Francis Barr Other [facility] Other 07-20-2022 10:45-0400 Body height 163.83 cm Nahid Gu Other [employer] Other 07-20-2022 10:45-0400 Body mass index (BMI) [Ratio] 36.5 kg/m2 Nahid Olexa Other [employer] Other 07-20-2022 10:45-0400 Body weight 97.98 kg Nahid Olexa Other [employer] Other Encounters Encounter Date Encounter Type Care Provider Facility Start: 11-08-2023 Orders Only Shaikh Moi GREEN Work Phone: [facility] Comment on above: Moderate persistent asthma without complication (CMS/HCC) (Primary Dx) Start: 11-05-2023 End: 2023 ambulatory DANNI MANSFIELD [facility] Start: 10-29-2023 End: 10-29-2023 ambulatory Francis Barr Other [employer] Other Start: 10-29-2023 Telephone encounter Francis Barr [facility] Start: 10-16-2023 End: 10-16-2023 ambulatory SHAIKH MOI Not Available Start: 09-24-2023 End: 09-24-2023 ambulatory Francis Cortney Other [employer] Other Start: 09-24-2023 Telephone encounter Francis Barr [facility] Start: 09-13-2023 End: 09-13-2023 ambulatory Francis Cortney Other [employer] Other Start: 09-13-2023 Office outpatient vi sit 15 minutes Francis Barr [facility] Start: 08-24-2023 End: 08-24-2023 Emergency department patient visit Meyerotilio Troncosojorge Facility:[facility] Start: 08-24-2023 End: 08-24-2023 Emergency department patient visit MD Shaikh Prater Work Phone: [facility]Emergency Room Work Phone: Start: 08-02-2023 End: 08-02-2023 ambulatory Carmen Washington Other [facility] Other Start: 08-02-2023 Office outpatient vi sit 15 minutes Carmen Washington [facility] Start: 07-13-2023 End: 07-13-2023 ambulatory Tracy Wu Facility:[facility] Start: 07-13-2023 End: 07-13-2023 Patient encounter procedure MD Shaikh Prater Work Phone: [facility]-Physical Therapy [address] Start: 07-04-2023 Refill Kb Olivo Work Phone: Neurology Pain Comment on above: Refill Request (Traz odone Rx); Refill Request; Refill Request Start: 06-21-2023 End: 06-21-2023 ambulatory Shaikh Moi Facility:[facility] Start: 06-21-2023 End: 06-21-2023 ambulatory MD Shaikh Prater Work Phone: [facility] Work Phone: Start: 06-21-2023 End: 06-21-2023 Patient encounter procedure MD Shaikh Prater Work Phone: [facility] Main [place] Work Phone: Start: 05-21-2023 End: 05-22-2023 ambulatory Terri Abrams MD Facility:[facility] Start: 05-16-2023 End: 05-16-2023 ambulatory Shaikh Moi Facility:[facility] Start: 05-16-2023 End: 05-16-2023 ambulatory MD Shaikh Prater Work Phone: [facility] Work Phone: Start: 05-16-2023 End: 05-16-2023 Patient encounter procedure MD Shaikh Prater Work Phone: [facility] [place] Work Phone: Start: 04-16-2023 Refill Lori Woody RN Neurolog y Pain Comment on above: Refill Request Start: 03-28-2023 Telephone encounter Kb yates DO Work Phone: Pain Recovery Comment on above: Electronic Communica tion Start: 03-27-2023 Telephone encounter [facility] Provider Fam n Recovery Comment on above: Electronic Communica tion Start: 03-03-2023 End: 03-03-2023 ambulatory HASMUKH DIAB . Facility:[facility] Start: 02-19-2023 Telephone encounter Kb yates DO Work Phone: Pain Recovery Comment on above: Patient Question Start: 02-13-2023 End: 02-13-2023 ambulatory KB LORENZO Facility:[facility] Start: 02-09-2023 Telephone encounter Kb yates DO Work Phone: Pain Recovery Comment on above: Patient Question Start: 02-06-2023 ambulatory Kb Lorenzo D O Work Phone: Neurology Pain Comment on above: need advice Start: 01-27-2023 End: 01-27-2023 Emergency department patient visit Shaikh Moi Facility:[facility] Start: 01-27-2023 End: 01-27-2023 Emergency department patient visit EMERGENCY DEPARTMENT TECHNICIAN-BC Kristina Delgado Work Phone: [facility]Emergency Room Work Phone: Start: 01-24-2023 End: 01-24-2023 ambulatory KB [facility] Facility:[facility] Start: 12-28-2022 End: 12-28-2022 [facility] [place] Castellanos Therapist Work Phone: Pain Recovery Comment on above: Pain disorder associ ated with psychological factors and medical condition (Primary Dx); Chronic pain syndrome Start: 12-21-2022 End: 12-22-2022 ambulatory SHAIKH Ana PRATER Facility: Start: 12-15-2022 Telephone encounter Lori Woody RN N eurology Pain Comment on above: pre inj phone call Start: 12-07-2022 ambulatory Kb Lorenzo D O Work Phone: Neurology Pain Comment on above: Need help please. Start: 11-28-2022 ambulatory Kb Tankmilan D O Work Phone: Neurology Pain Comment on above: Bhavesh Cárdenas Injec tion schedule Start: 11-24-2022 ambulatory KB LORENZO Facility:[facility] Start: 11-24-2022 End: 11-24-2022 Patient encounter procedure Spine Med Procedure Main Work Phone: [facility] Comment on above: APPOINTMENT CANCELLE D (Primary Dx) Start: 11-15-2022 End: 11-15-2022 ambulatory OLAYINKA BOYD Facility:[facility] Start: 11-15-2022 End: 11-15-2022 Patient encounter procedure Kb Lorenzo DO Work Phone: Neurology Pain Comment on above: Chronic pain syndrom e (Primary Dx); Chronic bilateral low back pain without sciatica; Disturbance of sleep pattern associated with pain; Lumbar spondylosis; Sacroiliitis (HCC) Start: 10-30-2022 End: 10-31-2022 ambulatory SANTANA HARRIS Facility:[facility] Start: 10-30-2022 End: 10-30-2022 Subsequent hospital visit by physician Xr Main [facility] Radiology Comment on above: Localized, primary o steoarthritis of hand, unspecified laterality [M19.049] Start: 10-30-2022 End: 10-30-2022 Patient encounter procedure Santana Harris MD Work Phone: [facility] Comment on above: Localized, primary o steoarthritis of hand, unspecified laterality (Primary Dx); Arthritis; Chronic right-sided low back pain without sciatica Start: 10-23-2022 End: 10-23-[address] ERICK ARGUETA . Facility: Start: 10-19-2022 End: 10-19-2022 ambulatory OLAYINKA BOYD Facility:[facility] Start: 10-19-2022 End: 10-19-2022 Patient encounter procedure Olayinka Boyd PA-C Work Phone: Spine Medicine Comment on above: Chronic bilateral lo w back pain without sciatica (Primary Dx) Start: 10-16-2022 End: 10-16-2022 ambulatory Milton Valentine II Other [facility] Other Start: 10-16-2022 Telephone encounter Milton Valentine II [facility] Start: 09-28-2022 [facility] visit new patient Milton velazquez II [facility] Start: 09-28-2022 End: 09-28-2022 ambulatory Milton Valentine II Facility:[facility] Start: 09-28-2022 End: 09-28-2022 ambulatory MD Carmen Wheatley Work Phone: [facility] Work Phone: Start: 09-28-2022 End: 09-28-2022 Patient encounter procedure MD Carmen Wheatley Work Phone: [facility] Start: 09-26-2022 End: 09-26-2022 ambulatory Francis Barr Other [facility] Other Start: 09-26-2022 Office outpatient ne w 30 minutes Francis Barr [facility] Start: 08-18-2022 End: 08-19-2022 ambulatory SHAIKH Ana TRONCOSOD Facility:[facility] Start: 08-14-2022 End: 08-15-2022 ambulatory MEYER H FAWWAD Facility:[facility] Start: 08-10-2022 End: 08-11-2022 ambulatory MEYER H FAWWAD Facility:[facility] Start: 07-20-2022 End: 07-20-2022 ambulatory Nahid Gu Other [facility] [employer] Other Start: 07-20-2022 Office outpatient ne w 30 minutes Nahid Gu [facility] Start: 07-13-2022 End: 07-13-2022 ambulatory ARCELIA DIAZ . Facility: Procedures Date Procedure Procedure Detail Performing Clinician Start: 08-24-2023 CT of lumbar spine without contrast MD Shaikh Prater Work Phone: Start: 06-21-2023 MR lumbar spine wo con MD Shaikh Prater Work Phone: Start: 05-16-2023 MR thoracic spine wo con MD Shaikh Prater Work Phone: Start: 05-16-2023 MRI of cervical spin e without contrast MD Shaikh Prater Work Phone: Start: 01-27-2023 X-ray of lumbar spin e, four or more views EMERGENCY DEPARTMENT TECHNICIAN-BC Kristina Delgado Work Phone: Start: 11-24-2022 Gluc bld gluc mntr d ev cleared fda spec home use [facility] Provider Start: 10-30-2022 Joint survey single view 2 or more joints Santana Harris MD Work Phone: Start: 09-28-2022 Plain X-ray of right hip MD Carmen Wheatley Work Phone: Plan of Treatment Date Care Activity Detail Author Start: 10-30-2025 DIABETES SCREEN DIABETES SCREEN [facility] Start: 10-30-2025 Diabetes Screening Diabetes Screenin g [facility] Start: 09-07-2025 Screening for malign ant neoplasm of colon [facility] Start: 02-27-2025 Glaucoma screening Diabetes: R etinopathy Screening [facility] Start: 02-16-2024 DIABETES SCREEN DIABETES SCREEN [facility] Start: 11-19-2023 End: 11-19-2023 Patient encounter procedure 11/19/2023 2:45 PM EST Office Visit [facility] [address] [place] [id number] Shaikh Prater MD [address] [place] [id number] [facility] Start: 10-08-2023 Hemoglobin A1c measurement Diabetes: Hemoglobin A1C [facility] Start: 06-21-2023 MR lumbar spine wo con MR lumbar spi ne wo con [facility] Start: 06-21-2023 MR Lumbar spine WO contrast [facility] Start: 06-08-2023 Influenza vaccination [facility] Start: 10-30-2022 End: 12-30-2022 MIKAYLA BY IFA WITH REFLEX [facility] Work Phone: Comment on above: Expected: 10/30/2022 , Expires: 12/30/2022 Start: 10-30-2022 End: 12-30-2022 Cyclic citrullinated peptide IgG Ab [Units/volume] in Serum or Plasma [facility] Work Phone: Comment on above: Expected: 10/30/2022 , Expires: 12/30/2022 Start: 10-30-2022 End: 12-30-2022 Erythrocyte sedimentation rate [facility] Work Phone: Comment on above: Expected: 10/30/2022 , Expires: 12/30/2022 Start: 10-08-2022 DEPRESSION ASSESSMENT DEPRESSION ASS ESSMENT [facility] Start: 06-08-2022 Influenza vaccination INFLUENZA (#1) [facility] Start: 12-14-2021 Urine screening for protein Diabetes: Urine Protein Screening [facility] Start: 04-08-2021 COVID-19 VACCINE (3 - Booster for Pfizer series) COVID-19 VACCINE (3 - Booster for Pfizer series) [facility] Start: 04-08-2021 COVID-19 VACCINE (3 - Pfizer series) COVID-19 VACCINE (3 - Pfizer series) [facility] Start: 02-11-2021 COVID-19 VACCINE (2 - Pfizer series) COVID-19 VACCINE (2 - Pfizer series) [facility] Start: 01-04-2020 Urine microalbumin profile [facility] Start: 2018 COLOGUARD (FIT-DNA) COLOGUARD (FIT-D NA) [facility] Start: 2018 Colonoscopy COLONOSCOPY [facility] Start: 2018 COLORECTAL CANCER SCREENING COLORECTAL CANCER SCREENING [facility] Start: [address] COLONOGRAPHY [facility] Start: 2018 FECAL OCCULT BLOOD FECAL OCCULT BLOO D [facility] Start: 2018 SIGMOIDOSCOPY SIGMOIDOSCOPY [facility] Start: 01-04-2010 Urine microalbumin profile DTAP,TDAP,TD (1 - Tdap) [facility] Start: 2008 Lipid 1996 panel - S edel or Plasma Lipid Screening [facility] Start: 2008 LIPID SCREEN LIPID SCREEN [facility] Start: 1992 Urine microalbumin profile DTAP,TDAP,TD (1 - Tdap) [facility] Start: 1991 HEPATITIS C SCREENING HEPATITIS C SC REENING [facility] Start: 1991 HIV SCREENING HIV SCREENING [facility] Start: 1973 HEPATITIS B (1 of 3 - 3-dose series) HEPATITIS B (1 of 3 - 3-dose series) [facility] Start: 1973 Hepatitis B Vaccine (1 of 3 - 3-dose series) Hepatitis B Vaccine (1 of 3 - 3-dose series) [facility] Start: 1973 Screening for malign ant neoplasm of colon [facility] Patient Education [facility] Work Phone: Patient referral [facility] Work Phone: SPINE INTERVENTION PROCEDURE SPINE INTERVENTION PROCEDURE Procedures Routine Sacroiliitis (HCC) Ordered: 11/15/2022 [facility] Work Phone: Comment on above: Ordered: 11/15/2022 [facility] Immunizations Immunization Date Immunization Notes Care Provider [facility] 07-13-2023 SARS-COV-2 (COVID-19 ) vaccine, mRNA, spike protein, LNP, PF, 50 mcg/0.5 mL Shaikh Moi GREEN Work Phone: [facility] 06-27-2023 Influenza, injectabl e, Madin [place] Canine Kidney, preservative free, quadrivalent Shaikh Moi GREEN Work Phone: [facility] 02-11-2021 COVID-19 original vaccine, age 12+ yr, monovalent (PFIZER-BIONTECH - PURPLE TOP) Santana Harris MD Work Phone: [facility] 01-21-2021 COVID-19 original vaccine, age 12+ yr, monovalent (PFIZER-BIONTECH - PURPLE TOP) Santana Harris MD Work Phone: [facility] 07-07-2020 influenza, injectabl e, quadrivalent, preservative free Santana Harris MD Work Phone: [facility] 07-07-2020 influenza virus vacc ine, unspecified formulation Kb Lorenzo DO Work Phone: [facility] 09-29-2019 influenza, injectabl e, quadrivalent, contains preservative Shaikh Moi GREEN Work Phone: [facility] 08-13-2019 influenza, injectabl e, quadrivalent, contains preservative Shaikh Moi GREEN Work Phone: [facility] 08-24-2017 influenza, injectabl e, quadrivalent, preservative free Santana Harris MD Work Phone: [facility] 07-07-2016 influenza, injectabl e, quadrivalent, preservative free Santana Harris MD Work Phone: [facility] 07-02-2015 influenza, injectabl e, quadrivalent, preservative free Santana Harris MD Work Phone: [facility] 07-02-2015 influenza, seasonal, injectable, preservative free Shaikh Moi GREEN Work Phone: [facility] 08-05-2014 influenza, seasonal, injectable, preservative free Santana Harris MD Work Phone: [facility] 07-18-2013 influenza, seasonal, injectable, preservative free Santana Harris MD Work Phone: [facility] 07-18-2013 seasonal influenza, intradermal, preservative free Shaikh Moi GREEN Work Phone: [facility] 07-05-2012 influenza, seasonal, injectable, preservative free Shaikh Moi GREEN Work Phone: [facility] 09-04-2011 influenza virus vacc ine, whole virus Shaikh Moi GREEN Work Phone: [facility] 07-07-2010 influenza virus vacc ine, whole virus Shaikh Moi GREEN Work Phone: [facility] 01-03-2010 diphtheria, tetanus toxoids and pertussis vaccine Shaikh Moi GREEN Work Phone: [facility] 01-03-2010 tetanus and diphther ia toxoids, adsorbed, preservative free, for adult use (5 Lf of tetanus toxoid and 2 Lf of diphtheria toxoid) Santana Harris MD Work Phone: [facility] 01-03-2010 tetanus toxoid, redu los diphtheria toxoid, and acellular pertussis vaccine, adsorbed Santana Harris MD Work Phone: [facility] Payers Date Payer Category Payer Private Health Insurance [id number] 2022 Self-pay [id number] 2022 Medicaid [id number] 1973 Unknown [id number] 2.16.840.1.440778.3.579.2.593 1973 Unknown [id number] 2.16.840.1.878940.3.579.2.593 1973 Unknown [id number] 2.16.840.1.586252.3.579.2.593 1973 Unknown [id number] 2.16.840.1.588984.3.579.2.593 1973 Unknown [id number] 2.16.840.1.768222.3.579.2.593 1973 Unknown [id number] 2.16.840.1.246683.3.579.2.593 1973 Unknown [id number] 2.16.840.1.372493.3.579.2.593 1973 Unknown [id number] 2.16.840.1.904015.3.579.2.196 1973 Unknown [id number] 2.16.840.1.206152.3.579.2.1259 1959 Medicaid [id number] Medicaid [id number] 2.1 [id number] Unknown MMO [id number] Unknown Makayla BC/BS [id number] Unknown [id number] 2.16.840.1.339525.3.579.2.531 Unknown [id number] 2.16.840.1.798003.3.579.2.531 Unknown [id number] 2.16.840.1.708193.3.579.2.531 Unknown [id number] 2.16.840.1.545869.3.579.2.531 Unknown [id number] 2.16.840.1.345385.3.579.2.531 Unknown [id number] 2.16.840.1.972365.3.579.2.531 Social History Date Type Detail Facility Unknown if ever smoked [email or web address] Other Start: 11-15-2022 End: 10-16-2023 Sex Assigned At [facility] Start: 1975 Sex Assigned At Male F [facility] Start: 10-19-2022 End: 09-17-2023 Tobacco smoking status [facility] Never smoked tobacco [facility] Start: 10-19-2022 Tobacco use and exposure Smokeless tobacco non-user [facility] Start: 1975 Sex Assigned At Not on file [facility] Start: 01-27-2023 End: 08-24-2023 Tobacco smoking status [facility] Ex-smoker (finding) [facility] Start: 11-15-2022 End: 10-16-2023 History of Social function [facility] Adult Depression Screening Assessment 2 [facility] Start: 10-16-2023 Alcohol intake Lifetime non-d belkys (finding) [facility] Are you now , , , , never or living with a partner? Refused [facility] Start: 09-17-2023 Alcohol Comment caffeine: 1-2 cups per day 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 I independently reviewed the MRI of the lumbar spine and the report also the CT of the lumbar spine and the report. I see no evidence for lumbar radiculopathy he had a transforaminal injection done which did nothing to help him. He was treated with pain management Conception years ago did not like it he had 1 injection the transforaminal and did not get better and did not go back. I think this patient has primarily sacroiliac pain some axial low back pain he needs sacroiliac injections and/or axial injections. This is not a surgical entity I also recommended anti-inflammatori es. 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 Patient advised contagious until lesions are crusted over. Reinforced good hand hygeine and infection control. Avoid touching face and eyes. May use OTC Tylenol as needed for pain. Do not scratch or pick at lesions. May leave open to air, can cover with nonocclusive dressing if draining or rubbing on clothing to decrease irritaiton. Moist cool compresses on affected areas can help with any pain and discomfort. May also use calamine lotion, corn startch or baking soda to dry lesions, avoid ointments and lotions as may prolong healing process. Advised patient that may take 2-4 weeks to fully resolve. Encouraged patient to follow up with PCP in 7 days if no improvement, sooner if sx worsen. Immediate eval for warning s/sx as discussed, including but not limited to, fever, severe headache, neck pain/stiffness, rash near eyes, eye pain, vision changes. [email or web address] Other 09-27-2023 Miscellaneous Notes* Telephone Encounter - Rose Marie Acosta RN - 07/04/2023 2:36 PM EDT Last appointment with Dr. Lorenzo - 02/13/2023 Next appointment: Not scheduled 07/04/2023 @ 1435: LVM regarding Trazodone Rx refill request - This RN needing to confirm Trazodonedose and how tolerated by patient prior to providing Rx refill. Will await return call to the office. 07/05/2023 @ 1710: LVM for return call to the office. Rose Marie Acosta RN documented in this encounterA[facility]07-[facility]23 Miscellaneous Notes* Telephone Encounter - Lori Woody RN - 04/16/2023 11:19 AM EDT Refill request sent to the provider documented in this encounterAden[facility]06-21-2023 Miscellaneous Notes* Telephone Encounter - Lori Woody RN - 03/28/2023 2:37 PM EDT Weight entered in Epic documented in this encounterAdena [facility]06-20-2023 Miscellaneous Notes* Telephone Encounter - Lorna Anaya - 03/27/2023 1:25 PM EDT Patient's weight check faxed over for office to review; indexed into patient's chart under scanned documents. documented in this encounterAdena [facility] Center05-15-2023 Miscellaneous Notes* Telephone Encounter - Lorna Anaya - 02/19/2023 10:53 AM EDT Patient phones stating his back cracked on and pain increased, he found harder to walk d/tpain. Patient also reports yesterday right leg was not moving and caused patient to fall, please advise. documented in this encounterAdena [facility]ayette [facility] Center05-09-2023 NoteHNO ID: [id number] Author: Kb Lorenzo, DO Service: ? Author Type: Physician Type: Progress Notes Filed: 02/26/2023 10:57 AM Note Text: THE [facility] for Comprehensive Pain Recovery [facility] [place] February 13, 2023 I have communicated my name and active licensure. The patient's identity and physical location were verified at the time of this visit. Either the patient or their legal payroll representative has been informed of the risks and benefits of -- and alternatives to -- treatment through a remote evaluation and consents to proceed with the evaluation remotely. SUBJECTIVE: Bhavesh Cárdenas presents to for a follow-up appointment for low back pain. Since the last visit, Bhavesh Cárdenas states the pain has been persistent. The prior SI injection provided 2 days of 100% relief. On the 3rd day he felt something pop on the low right side and now there's constant zapping. Feels like a rope around his thigh and squeezing. Current Outpatient Medications Medication Sig Dispense Refill methylPREDNISolone (MEDROL, GUSTABO,) 4 mg Dose-Pack Use as directed 21 tablet 0 metFORMIN (GLUCOPHAGE) 500 mg tablet Take 500 mg by mouth q 12 HR. TRULICITY 0.75 mg/0.5 mL pen injector DULoxetine (CYMBALTA) 60 mg capsule Take 60 mg by mouth once daily. ropinirole HCl (ROPINIROLE ORAL) Requip Active VENTOLIN HFA 90 mcg/actuation inhaler INHALE 2 PUFFS BY MOUTH EVERY 4 TO 6 HOURS NEEDED FOR SHORTNESS OF BREATH OR WHEEZING DULERA 100-5 mcg/actuation inhaler Inhale 2 Puffs as instructed twice daily. baclofen (LIORESAL) 20 mg tablet Take 20 mg by mouth three times daily. gabapentin (NEURONTIN) 400 mg capsule Take 1 capsule by mouth three times daily for 90 days. 90 capsule 2 No current facility-administered medications for this visit. REVIEW OF SYSTEMS: REVIEW OF SYSTEMS PAIN ASSESSMENT: CURRENTLY HAVING PAIN; see HPI GENERAL: No weight loss, malaise or fevers Past Medical History: PAST MEDICAL HISTORY Diagnosis Date Diabetes mellitus (HCC) Past Surgical History: PAST SURGICAL HISTORY Procedure Laterality Date KNEE ARTHROSCOPY/SURGERY Left 1997 removed part of knee cap and reconstructed ligament Family History: FAMILY HISTORY Problem Relation Age of Onset Multiple Sclerosis Father Arthritis Father Prostate Cancer Father Glaucoma Son Social History: Social History Tobacco Use Smoking status: Never Smokeless tobacco: Never OBJECTIVE: There were no vitals taken for this visit. ASSESSMENT: Sacroiliac Joint Pain PLAN: 1) Rx: trazodone 50 mg qHS; can consider increasing dose as needed every week to 200 mg qHS 2) Further interventions likely not beneficial given limited relief from prior SIJ injection 3) Continue to optimize diet, activity, and sleep. I spent a total of 25 minutes on the date of the service which included preparing to see the patient, [id number] patient care, completing clinical documentation, obtaining and/or reviewing separately obtained history, counseling and educating the patient/family/caregiver, and ordering medications, tests, or procedures. Kb Lorenzo, DO Important Patient Information: 1. To schedule Pain Recovery appointments or post-injection office visits, please call: [phone] 2. The nursing staff and medical assistants are a part of your pain recovery team and will be handling your phone calls and inquiries. 3. Your study results and treatment plan will be discussed during a follow-up appointment. If you do not have a follow-up appointment and wish to discuss any issues directly with me, please call: [phone] to set-up an appointment. 4. MyChart is best used for refill requests or yes or no questions. Anything more complicated will likely require a follow-up appointment that you can schedule by [phone]. 5. It is the practice of the Department to not fill disability or any other insurance-related forms/documentation. All of the office notes, study results, and other documentation as part of your evaluation will be available to you and to your Primary Care Physician (PCP). Use of this material to complete such forms will be at the discretion of your PCP/referring physician. 6. If you are scheduled for a ketamine infusion, you will be contacted regarding specific scheduling instructions in the future by our department. There is no need to contact our department regarding the scheduling process or your estimated wait; you will be contacted once there is an opening.[facility]05-05-2023 Miscellaneous Notes* Telephone Encounter - Lori Woody RN - 02/09/2023 3:42 PM EDT Pt instructed to follow up with PCP. documented in this encounterAdena [facility] Center05-05-2023 Miscellaneous Notes* Telephone Encounter - Lorna Anaya - 02/09/2023 3:27 PM EDT Patient phones again to follow up on advice concerning last message, please advise. documented in this encounterAdena Fayette Medical Center03-23-2023 NoteHNO ID: [id number] Author: Washington Castellanos, Therapist Service: ? Author Type: Therapist Type: Progress Notes Filed: 01/01/2023 2:00 PM Note Text: THE [facility] for Comprehensive Pain Recovery Psychological Evaluation December 28, 2022 Bhavesh Cárdenas [facility]#: [id number] I have communicated my name and active licensure. The patient's identity and physical location were verified at the time of this visit. Either the patient or their legal payroll representative has been informed of the risks and benefits of -- and alternatives to -- treatment through virtual visit and consents to proceed with the session remotely. Patient location: At home in [place], [place]. This 47 year old unemployed (since April 21, 2022) male lives with his , daughter, son-in-law and their dog in [place]. He has applied for disability. 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 He was referred by Kb Lorenzo DO for psychological evaluation in the context of chronic pain. This consultation was shared with the referral source via the [facility] electronic medical record. He believes the reason for referral is to assess the need for a rehabilitation program. Limits to confidentiality were discussed and agreed upon. Informed consent was provided verbally. Patient was informed that this evaluation is for consultation and not to be used for legal or forensic purposes. The goal of the following assessment is to identify the psychological, behavioral, cognitive, and social factors important to or directly affecting the patient?s physiological functioning, health and well-being, as it relates to his/her pain condition. Recommendations will be provided to improve the patient?s health and well-being via cognitive, behavioral, social and/or psychophysiological procedures designed to ameliorate pain related problems. Chief complaints: I can't lay down on either side, or my back, and lying on my stomach causes the worst. Current Pain and Related Mood Symptoms: 1) Center of spine pain-- it never goes away , shooting out to the sides 2) Both knees and hips have pain. 3) Neck pain Most bothersome/worse symptoms: Center of spine pain Patient-Entered Data: Pain Recovery Scores 12/22/2022 1:36 PM LBP over last 6 months - Ongoing back pain problem - START back screen total score - START back screen distress score - START back screen risk score - Oswestry disability index score - PCS rumination subscore 8 PCS magnification subscore 4 PCS helplessness subscore PCS total score PHQ-9 12/22/2022 10/29/2022 10/19/2022 Score 16 5 21 SANDRITA - 7 SCORES 12/22/2022 SANDRITA-7 Score 12 PROMIS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 reveal any abnormal rheumatologic tests. X rays of hands show no signs ofinflammatory arthropathy. The patient describes the pain as in the center of lower back pain that radiates down the inside ofhis thigh down to testicle primarily on the right side. Sometimes the pain is on the left side. Climbing steps, walking long period, or twisting makes the pain worse. Nothing makes the pain better. The first three hours of the morning makes the pain better. He notices the more he moves, the worse it gets. He describes the pain as nagging and burning with times he describes it as getting stabbed. The family physician prescribed oxycodone 5 mg that helps with the pain. The patient is also on Cymbalta 60 mg daily The patient tried flexeril that did not work. The patient cannot take NSAIDs due to anaphylaxis. Spine Red Flag Bhavesh Tere Cárdenas endorses red flag symptoms of Bowel or bladder dysfunction Anesthesia: Denies Schizophrenia: Denies : Denies CHF: Denies Uncontrolled HTN: Denies Recent ME: Denies Arrythmias: Denies Afib: Denies Hyperthyroid: Denies Aortic Stenosis: Denies Liver Failure: Denies Increased ICP: Denies Previous pain treatments: physical therapy, medications, injections Functional Limitations: The patient limiting his work. Wellness: How would you describe your diet: Chicken, turkeym veggie nikolas How many days a week do you exercise: 0 How many hours do you sleep a night: 5-6 hours interrupted Emotional Symptoms: include depression, frustration, and irritability The patient has loss of interest, energy, and sleep The patient denies suicidal ideation. Non-medical stresses: Include loss of job, work difficulties, medical problems, and occupational problems Family involvement: is appropriate/helpful and supportive Financial Status: No financial difficulty Allergies: Reviewed in the EMR Current Medications: Reviewed in the EMR PAST MEDICAL HISTORY Diagnosis Date Diabetes mellitus (HCC) PAST SURGICAL HISTORY Procedure Laterality Date KNEE ARTHROSCOPY/SURGERY Left 1997 removed part of knee cap and reconstructed ligament Psychiatric History: Denies Social History Tobacco Use Smoking status: Never Smokeless tobacco: Never Substance use: He never used tobacco. @[facility]@ denies current and past significant alcohol use and @capBazaarvoice@ describes current alcohol consumption as 3-4 shots of whiskey a day to help with pain Drug use: There is no history of recreational substance use. . Family History FAMILY HISTORY Problem Relation Age of Onset Multiple Sclerosis Father Arthritis Father Prostate Cancer Father Glaucoma Son ROS was positive for: Difficulty walking Back pain All of the other systems reviewed were negative. OBJECTIVE: PHYSICAL EXAM: GENERAL APPEARANCE: Well appearing, well-hydrated, well nourished and alert SKIN: Head, neck, trunk, and extremities dry, intact and without lesions NECK: negative findings: no asymmetry or scars BACK: positive findings: tenderness to palpation of bilateral lumbar paraspinal muscles. LUNGS: even and non-labored breathing, normal chest excursion HEART: Edema: No MUSCULOSKELETAL: positive findings: (+) Gaenslen's test bilaterally, (+) Gordon test bilaterally, (+) compression test bilaterally NEURO/PSYCH: cranial nerves 2-12 intact, speech normal, mental status intact IMAGING: MRI L -Spine reviewed ASSESSMENT: 47M with long standing chronic lower back pain radiating down the thigh. Exam consistent with likely bilateral sacroiliac joint dysfyunction (G89.4) Chronic pain syndrome (primary encounter diagnosis) (M54.50, G89.29) Chronic bilateral low back pain without sciatica (G47.9, R52) Disturbance of sleep pattern associated with pain (M47.816) Lumbar spondylosis (M46.1) Sacroiliitis (HCC) Chronic Pain Syndrome PLAN: Further evaluation: None Nutrition: Consult to wellness placed Therapies: Consult to physical therapy Sleep: Consult to sleep medicine placed Medications: None Interventions: Schedule for SI joint injection (bilateral under local) Infusions: Consider ketamine infusions in the future if SI joint injections fail 8. Pain Psychology: Consult placed Review, Ask, Review: Completed Follow-up: For SI joint injection bilaterally Munir Barksdale MD Attending Note I evaluated the patient and personally participated in the barney components. I agree with the fellow/resident's findings and plan as documented and have discussed the case and management of the patient's care with the resident. Kb Lorenzo DO I spent a total of 45 minutes on the date of the service which included preparing to see the patient, [id number] patient care, completing clinical documentation, obtaining and/or reviewing separately obtained history, performing a medically appropriate examination, counseling and educating the pat ient/family/caregiver, and ordering medications, tests, or procedures. Important Patient Information: 1. To schedule Pain Recovery appointments or post-injection office visits, please call: [phone] 2. The nursing staff and medical assistants are an integral part of your pain recovery team and will be handling your phone calls and inquiries. 3. Your study results and treatment plan will be discussed during a follow-up appointment. If you do not have a follow-up appointment and wish to discuss any issues directly with me, please call: [phone] to set-up an appointment. 4. MyChart is best used for refill requests or yes or no questions. Anything more complicated will likely require a follow-up appointment that you can schedule by [phone]. 5. It is the practice of the Department to not fill disability or any other insurance-related forms/documentation. All of the office notes, study results, and other documentation as part of your evaluation will be available to you and to your Primary Care Physician (PCP). Use of this material to complete such forms will be at the discretion of your PCP/referring physician. 6. If you are scheduled for a ketamine infusion, you will be contacted regarding specific scheduling instructions in the future by our department. There is no need to contact our department regardingthe scheduling process or your estimated wait; you will be contacted once there is an opening. documented in this encounterA[facility]23 NoteHNO ID: [id number] Author: RT Tyson(Genny) Service: ? Author Type: Technologist Type: Progress Notes Filed: 10/30/2022 10:35 AM Note Text: Radiology Service Progress Note PATIENT NAME: Bhavesh Cárdenas DATE OF SERVICE: October 30, 2022 TIME: 10:35 AM PATIENT IDENTITY VERIFICATION COMPLETED USING TWO (2) IDENTIFIERS: Name and Date of confirmed by patient verbally. FALL SCREENING: Has the patient had 2 falls in the last year or 1 fall with injury or currently using an Ambulatory Assistive Device (Walker, Cane, Wheelchair, Crutches, etc.)? No PATIENT GENDER DATA: Male PATIENT RELEVANT IMPLANT DATA REVIEWED: Not Applicable RADIOLOGY DEPARTMENT: General X-ray: Exam(s) Completed: Upper Extremity X-Ray(s): Wrist, bilateral and Hand, bilateral PERIPHERAL IV DATA: Not applicable SIGNED BY: RT Tyson(Genny) October 30, 2022 10:35 [facility]01-23-2023 NoteHNO ID: [id number] Author: Santana Harris MD Service: ? Author Type: Physician Type: Progress Notes Filed: 10/30/2022 10:20 AM Note Text: ref: Shaikh Moi [address] [place] [id number] I have been asked to see Bhavesh Cárdenas for Osteoarthritis by Shaikh Moi [address] [place] [address] HPI: Back pain for most of his lef. On the right side, just above the buttocks. The past six months it is painful picking up 24 pack of water. Leg drags on R a couple of times. Has fallen a couple of times. [place] like it lost control while walking. Has occasional sudden urgency to urinate. Has been incontinent of urine twice. Has tried physical therapy but the therapist told him to stop. PT found uneven hip height. Unable to lay on his back. Back munoz when laying on his side. Had MRI 08/2022. Showed a bulging disc and narrowing of spine. Had a bilateral L5-S1 nerve ablation. HISTORY: Low back pain ; chronic lumbar pain radiating into left leg; bilateral leg weakness COMPARISON: XR L-spine 08/10/2022 TECHNIQUE: A variety of imaging planes and parameters were utilized for visualization of suspected pathology. FINDINGS: For the purposes of numbering, sagittal T2 image # 8 extends from the T11 vertebral body superiorly to the S3 level inferiorly. PARASPINAL AREA: Normal with no visible mass. BONES: No fracture, pars defect, or osseous lesion. CORD/CAUDA EQUINA: Normal caliber, contour, and signal intensity. DISC LEVELS: 12-L1: No significant disc/facet abnormality, spinal stenosis, or foraminal stenosis. L1-L2: No significant disc/facet abnormality, spinal stenosis, or foraminal stenosis. L2-L3: No significant disc/facet abnormality, spinal stenosis, or foraminal stenosis. L3-L4: No significant disc/facet abnormality, spinal stenosis, or foraminal stenosis. L4-L5: Early degenerative disc disease is present without focal protrusion or neural impingement. L5-S1: Marked right, moderate left foramen narrowing without significant central canal narrowing. Moderate diffuse disc bulging and mild disc height reduction. Mild degenerative facet arthropathy bilaterally. IMPRESSION: 1. Marked right and moderate left foramen narrowing at L5-S1 secondary to moderate degenerative disc disease and mild degenerative facet arthropathy. It is noted that patient history describes symptoms involving left leg. Has small bumps on his DIP joints Has noticed decrease in collections agent strength. Hands swell. Has pain worse first in the morning and late at night. Discomfort in back of neck and shoulders . No rashes. No headaches. No eye problems. No bowel symptoms. No oral ulcers. Unable to work due to back pain CTD ROS:constitutional: no fevers, chills, night sweats, sleep disturbance, daytime fatigue skin- no rashes or ulcers, no hair loss ent- no oral ulcers, dry mouth or dry eyes chest- no cough , wheezes heart- no chest pain , SOB, MOON, orthopnea abd- no GI complaints, no nausea of vomiting, no constipation gu- No nocturia, no hematuria or change in urine stream or frequency joints- see HPI ext- no edema/ swelling. no raynaud's heme: no bleeding, no history of DVT; no history of recurrent infections. neuro-NEG for migraine headaches. Neg for numbness or tingling Answers submitted by the patient for this visit: Review of Systems Rheumatology (Submitted on 10/29/2022) Fever : No Recent Unintentional Weight Change: No Eye Pain: No Eye Redness: No Vision Disturbance: No Eye Dryness: No Nose Bleeds: No Sores in your Mouth: No Trouble Swallowing: No Dry Mouth: No Chest Pain: No Leg Swelling: No A Cough: No Shortness of Breath: No Pain with Breathing: No Heartburn: No Abdominal Pain: No Diarrhea: No Black Tarry Stools: No Blood in Urine: No Pain or Burning with Urination: No Joint Pain or Stiffness: Yes Muscle Weakness: Yes Muscle Aches: Yes Joint Swelling: Yes Morning Stiffness in Joints: Yes A Rash: No Skin Color Changes: No Hair Loss: No Nail Changes: No Headaches: No Numbness: No Memory Loss: No Swollen Glands: No There is no problem list on file for this patient. PAST MEDICAL HISTORY Diagnosis Date Diabetes mellitus (HCC) No past surgical history on file. Social History Tobacco Use Smoking status: Never Smokeless tobacco: Never FAMILY HISTORY Problem Relation Age of Onset Multiple Sclerosis Father Arthritis Father Prostate Cancer Father Glaucoma Son obj: PHYSICAL EXAMINATION: BP 144/96 Pulse 68 Temp (!) 35.3 ?C (95.6 ?F) (Temporal) General appearance: Well appearing, alert, in no acute distress, well-hydrated, well nourished. Skin: Skin color, texture, turgor normal, no suspicious rashes or lesions Head: Normocephalic, no masses, lesions, tenderness or abnormalities Eyes: Anicteric sclera. Pupils are equally round and reactive to light. Extraocular movem (more content not included)...[facility] 10-30-2022 History of Present illness Narrative* Juanpablo Petit RT(R) - 10/30/2022 10:15 AM EST Radiology Service Progress Note PATIENT NAME: Bhavesh Cárdenas DATE OF SERVICE: October 30, 2022 TIME: 10:35 AM PATIENT IDENTITY VERIFICATION COMPLETED USING TWO (2) IDENTIFIERS: Name and Date of confirmedby patient verbally. FALL SCREENING: Has the patient had 2 falls in the last year or 1 fall with injury or currently using an Ambulatory Assistive Device (Walker, Cane, Wheelchair, Crutches, etc.)? No PATIENT GENDER DATA: Male PATIENT RELEVANT IMPLANT DATA REVIEWED: Not Applicable RADIOLOGY DEPARTMENT: General X-ray: Exam(s) Completed: Upper Extremity X- Ray(s): Wrist, bilateral and Hand, bilateral PERIPHERAL IV DATA: Not applicable SIGNED BY: RT Tyson(R) October 30, 2022 10:35 AM documented in this encounterAdena [facility] History of Present illness Narrative* Santana Harris MD - 10/30/2022 9:00 AM EST ref: Shaikh Moi [address] [place] [id number] I have been asked to see Bhavesh Cárdenas for Osteoarthritis by Shaikh [place] [address] [place] [address] [place] [id number] HPI: Back pain for most of his lef. On the right side, just above the buttocks. The past six months it is painful picking up 24 pack of water. Leg drags on R a couple of times. Has fallen a couple of times. [place] like it lost control while walking. Has occasional sudden urgency to urinate. Has been incontinent of urine twice. Has tried physical therapy but the therapist told him to stop. PT found uneven hip height. Unable to lay on his back. Back munoz when laying on his side. Had MRI 08/2022. Showed a bulging disc and narrowing of spine. Had a bilateral L5-S1 nerve ablation. HISTORY: Low back pain ; chronic lumbar pain radiating into left leg; bilateral leg weakness COMPARISON: XR L-spine 08/10/2022 TECHNIQUE: A variety of imaging planes and parameters were utilized for visualization of suspected pathology. FINDINGS: For the purposes of numbering, sagittal T2 image # 8 extends from the T11 vertebral body superiorly to the S3 level inferiorly. PARASPINAL AREA: Normal with no visible mass. BONES: No fracture, pars defect, or osseous lesion. CORD/CAUDA EQUINA: Normal caliber, contour, and signal intensity. DISC LEVELS: 12-L1: No significant disc/facet abnormality, spinal stenosis, or foraminal stenosis. L1-L2: No significant disc/facet abnormality, spinal stenosis, or foraminal stenosis. L2-L3: No significant disc/facet abnormality, spinal stenosis, or foraminal stenosis. L3-L4: No significant disc/facet abnormality, spinal stenosis, or foraminal stenosis. L4-L5: Early degenerative disc disease is present without focal protrusion or neural impingement. L5-S1: Marked right, moderate left foramen narrowing without significant central canal narrowing. Moderate diffuse disc bulging and mild disc height reduction. Mild degenerative facet arthropathy bilaterally. IMPRESSION: 1. Marked right and moderate left foramen narrowing at L5-S1 secondary to moderate degenerative disc disease and mild degenerative facet arthropathy. It is noted that patient history describes symptoms involving left leg. Has small bumps on his DIP joints Has noticed decrease in collections agent strength. Hands swell. Has pain worse first in the morning and late at night. Discomfort in back of neck and shoulders . No rashes. No headaches. No eye problems. No bowel symptoms. No oral ulcers. Unable to work due to back pain CTD ROS:constitutional: no fevers, chills, night sweats, sleep disturbance, daytime fatigue skin- no rashes or ulcers, no hair loss ent- no oral ulcers, dry mouth or dry eyes chest- no cough , wheezes heart- no chest pain , SOB, MOON, orthopnea abd- no GI complaints, no nausea of vomiting, no constipation gu- No nocturia, no hematuria or change in urine stream or frequency joints- see HPI ext- no edema/ swelling. no raynaud's heme: no bleeding, no history of DVT; no history of recurrent infections. neuro-NEG for migraine headaches. Neg for numbness or tingling Answers submitted by the patient for this visit: Review of Systems Rheumatology (Submitted on 10/29/2022) Fever : No Recent Unintentional Weight Change: No Eye Pain: No Eye Redness: No Vision Disturbance: No Eye Dryness: No Nose Bleeds: No Sores in your Mouth: No Trouble Swallowing: No Dry Mouth: No Chest Pain: No Leg Swelling: No A Cough: No Shortness of Breath: No Pain with Breathing: No Heartburn: No Abdominal Pain: No Diarrhea: No Black Tarry Stools: No Blood in Urine: No Pain or Burning with Urination: No Joint Pain or Stiffness: Yes Muscle Weakness: Yes Muscle Aches: Yes Joint Swelling: Yes Morning Stiffness in Joints: Yes A Rash: No Skin Color Changes: No Hair Loss: No Nail Changes: No Headaches: No Numbness: No Memory Loss: No Swollen Glands: No There is no problem list on file for this patient. PAST MEDICAL HISTORY Diagnosis Date Diabetes mellitus (HCC) No past surgical history on file. Social History Tobacco Use Smoking status: Never Smokeless tobacco: Never FAMILY HISTORY Problem Relation Age of Onset Multiple Sclerosis Father Arthritis Father Prostate Cancer Father Glaucoma Son obj: PHYSICAL EXAMINATION: BP 144/96 Pulse 68 Temp (!) 35.3 C (95.6 F) (Temporal) General appearance: Well appearing, alert, in no acute distress, well-hydrated, well nourished. Skin: Skin color, texture, turgor normal, no suspicious rashes or lesions Head: Normocephalic, no masses, lesions, tenderness or abnormalities Eyes: Anicteric sclera. Pupils are equally round and reactive to light. Extraocular movements are intact. Ears: External ears normal, canals clear Nose/Sinuses: Nares normal, septum midline, mucosa normal, no drainage or sinus tenderness Oropharynx: Lips, mucosa, and tongue normal, teeth and gums normal, oropharynx normal Neck: Supple, no adenopathy; thyroid symmetric, normal size, no bruits Back: Normal exam: Normal LS spine ROM. Normal modified Carmina's. Mild tenderness on palpation of the R SI joint Lungs: Lungs clear to auscultation. No wheezing, rhonchi, rales. Heart: RRR without murmur, gallop, or rubs. No ectopy Abdomen: Normal abdominal exam, Abdomen soft, non-tender. Bowel sounds normal. No masses, organomegaly Extremities: No deformities, edema, skin discoloration, clubbing or cyanosis. Good capillary refill. Musculoskeletal: Spine range of motion normal. Muscular strength intact All joints are: [id number] No nodules or tophi Peripheral pulses: Normal Neuro: Gait normal. Reflexes normal and symmetric. Sensation grossly intact. Asses:(M19.049) Localized, primary osteoarthritis of hand, unspecified laterality (primary encounter diagnosis) Comment: Plan: XR HAND/WRIST SURVEY ARTHRITIS 1V PA BILATERAL, RHEUMATOID FACTOR BL, CCP ANTIBODY IGG, MIKAYLA BY IFA WITH REFLEX, SED RATE WESTERGREN, C-REACTIVE PROTEIN (CRP), CBC + DIFF, COMP METABOLIC PANEL, URINALYSIS, WITH MICROSCOPIC (M19.90) Arthritis Comment: Plan: XR HAND/WRIST SURVEY ARTHRITIS 1V PA BILATERAL, RHEUMATOID FACTOR BL, CCP ANTIBODY IGG, MIKAYLA BY IFA WITH REFLEX, SED RATE WESTERGREN, C-REACTIVE PROTEIN (CRP), CBC + DIFF, COMP METABOLIC PANEL, URINALYSIS, WITH MICROSCOPIC (M54.50, G89.29) Chronic right-sided low back pain without sciatica Comment: Plan: XR HAND/WRIST SURVEY ARTHRITIS 1V PA BILATERAL, RHEUMATOID FACTOR BL, CCP ANTIBODY IGG, MIKAYLA BY IFA WITH REFLEX, SED RATE WESTERGREN, C-REACTIVE PROTEIN (CRP), CBC + DIFF, COMP METABOLIC PANEL, URINALYSIS, WITH MICROSCOPIC Chronic low back pain. no signs of inflammatory arthritis, spondyloarthritis . No neurologic abnormalities Obtain screen for an inflammatory arthritis/ autoimmune forms of arthritis. Needs to follow up with chronic pain rehab program. I have communicated the results of this consult to Shaikh Moi [address] [facility] [id number] via the electronic medical record documented in this encounterAdena [facility]01-12-[facility]23 NoteHNO ID: [id number] Author: Olayinka Boyd PA-C Service: ? Author Type: Physician Sorter Operator Type: Progress Notes Filed: 10/19/2022 1:38 PM Note Text: Spine Care Path Low Back Pain - Chronic (> 12 weeks) Initial Exam SUBJECTIVE HISTORY OF PRESENT ILLNESS: Bhavesh Cárdenas is a 46 year old male who presents with a chief complaint of low back pain and is seen in consultation requested by for an opinion regarding chronic low back pain. My final recommendations will be communicated back to the requesting physician by way of shared medical record or letter via [place] mail. Patient is here with the complaint of pain in the mid part of the lower back for about 4 years, says this will sometimes radiate to the R groin and anterior thigh, as well as the entire legs bilaterally. No known injury to cause the pain. He had previously seen pain management where he had RFA done with only about 3 weeks worth of relief. Has done PT and has seen a surgeon near his home who did not feel he was a surgical candidate. Legs will sometimes give out on him. Weakness is not constant. Takes gabapentin 300mg TID as well as opiates when the pain is severe. Pain is worse with activity. He brings MRI from OSH Other Issues Addressed at the Visit Today: None. Precipitating Event: None PAIN EVALUATION 10/19/2022 1126 10/19/2022 1300 Pain Level: 7 6 Pain Location: Back-Lower Back-Lower Description: Burning;Pressure;Sharp;Throbbing Burning;Sharp;Stabbing Duration Amount of Time: -- 4 Duration Units: Months Years Frequency: Continuous Continuous Intervention/Comfort measure: -- Exercise;Heat;Therapeutic techniques-CPRP Comments: -- has also had shots to burn the nerve, and physical therapy YELLOW AND BLUE FLAGS No-Neg Attitude; Back Pain is Disabling No-Avoiding Activity (for Fear of Pain) No-Depression or Anxiety Disorders No-Social Problems No-Substance Use Disorder No-Job Dissatisfaction No-Financial Disincentives Patient Entered Questionnaires Spine Questions 10/19/2022 Pain Location: Lower back Pain Duration: 1 to 5 years Pain over last 6 months: Every day or nearly every day in the past 6 months Symptoms from neck/cervical spine: Yes Employment Status: Looking for work, unemployed Off work 1 month or more due to back/neck pain: Does not apply Applied for/receive disability/WC due to low back/neck pain Does not apply Involved in law suit/legal claim: No Spine Red Flags 10/19/2022 Any type of cancer: No Unexplained fever: No Bowel or bladder disfunction: Yes Unintentional weight loss: No Osteoporosis: No Neck Questionnaires 10/19/2022 Benzel Modified BRANDIE Score 13 (A lower score indicates increased pain and issues.) PROMIS Score Percentiles Physical Health 10/19/2022 Physical Function Percentile 2 Sleep Percentile 2 Fatigue Percentile 8 Pain Interference Percentile 1 PROMIS Global Health Scale 10/19/2022 Physical Health Percentile 2 Percentiles provide an indication of how the patient's score ranks in relation to the general population. Higher percentile rankings indicate better function/quality of life. 50th percentile is the average of the general population and indicates half of respondents had a worse score. Depression Screening: PHQ-9 10/19/2022 Score 21 PHQ-9 Self Harm 10/19/2022 Question 9 More than half the days PHQ-9 Self-Harm (Item 9) response options: 0 Not at all 1 Several days 2 More than half the days 3 Nearly every day PHQ-9 Levels: 0-4 No - mild depression 5-9 Mild depression 10-14 Moderate depression 15-19 Moderately severe depression 20-27 Severe depression There is no problem list on file for this patient. No past medical history on file. No past surgical history on file. No family history on file. ALLERGIES Not on File CURRENT MEDICATIONS: No prescriptions on file. REVIEW OF SYSTEMS: OBJECTIVE: PHYSICAL EXAM There were no vitals taken for this visit. GENERAL APPEARANCE: Well appearing, well-hydrated, well nourished and alert SKIN: Head, neck, trunk, and extremities dry, intact and without lesions HEART: Regular rate and rhythym, Murmur negative LUNGS: even and non-labored breathing, normal chest excursion LYMPHATICS: No palpable lymphadenopathy in the neck, axilla, or groin NEURO/PSYCH: oriented to time, place, and person, speech normal, mental status intact GAIT: normal, toe walking normal, heel walking normal, able to tandem gait POSTURE: Posture and spinal curves are normal PALPATION: paraspinal tenderness; lumbar MUSCULOSKELETAL: Extended Low Back AND Leg Exam Lumbar Range of Motion Flexion N/A Extension Normal RIGHT LEFT Lateral Bending Full Full Oblique Extension Within Normal Limits Within Normal Limits Leg Raise Straight Leg Raise Negative Negative Contralateral Straight Leg Raise Negative Negative DTRs Knee Normal Normal Ankle Normal Normal Medial Hamstri (more content not included)...[facility] 10-19-2022 History of Present illness Narrative* Olayinka Boyd PA-C - 10/19/2022 12:54 PM EST Images from the original note were not included. Spine Care Path Low Back Pain - Chronic (> 12 weeks) Initial Exam SUBJECTIVE HISTORY OF PRESENT ILLNESS: Bhavesh Cárdenas is a 46 year old male who presents with a chief complaint of low back pain and is seen in consultation requested by for an opinion regarding chronic low back pain. My final recommendations will be communicated back to the requesting physician by way of shared medical record or letter via [place] mail. Patient is here with the complaint of pain in the mid part of the lower back for about 4 years, says this will sometimes radiate to the R groin and anterior thigh, as well as the entire legs bilaterally. No known injury to cause the pain. He had previously seen pain management where he had RFA donewith only about 3 weeks worth of relief. Has done PT and has seen a surgeon near his home who did not feel he was a surgical candidate. Legs will sometimes give out on him. Weakness is not constant. Takes gabapentin 300mg TID as well as opiates when the pain is severe. Pain is worse with activity. He brings MRI from OSH Other Issues Addressed at the Visit Today: None. Precipitating Event: None PAIN EVALUATION 10/19/2022 1126 10/19/2022 1300 Pain Level: 7 6 Pain Location: Back-Lower Back-Lower Description: Burning;Pressure;Sharp;Throbbing Burning;Sharp;Stabbing Duration Amount of Time: -- 4 Duration Units: Months Years Frequency: Continuous Continuous Intervention/Comfort measure: -- Exercise;Heat;Therapeutic techniques-CPRP Comments: -- has also had shots to burn the nerve, and physical therapy YELLOW & BLUE FLAGS No-Neg Attitude; Back Pain is Disabling No-Avoiding Activity (for Fear of Pain) No-Depression or Anxiety Disorders No-Social Problems No-Substance Use Disorder No-Job Dissatisfaction No-Financial Disincentives Patient Entered Questionnaires Spine Questions 10/19/2022 Pain Location: Lower back Pain Duration: 1 to 5 years Pain over last 6 months: Every day or nearly every day in the past 6 months Symptoms from neck/cervical spine: Yes Employment Status: Looking for work, unemployed Off work 1 month or more due to back/neck pain: Does not apply Applied for/receive disability/WC due to low back/neck pain Does not apply Involved in law suit/legal claim: No Spine Red Flags 10/19/2022 Any type of cancer: No Unexplained fever: No Bowel or bladder disfunction: Yes Unintentional weight loss: No Osteoporosis: No Neck Questionnaires 10/19/2022 Benzel Modified BRANDIE Score 13 (A lower score indicates increased pain and issues.) PROMIS Score Percentiles Physical Health 10/19/2022 Physical Function Percentile 2 Sleep Percentile 2 Fatigue Percentile 8 Pain Interference Percentile 1 PROMIS Global Health Scale 10/19/2022 Physical Health Percentile 2 Percentiles provide an indication of how the patient's score ranks in relation to the general population. Higher percentile rankings indicate better function/quality of life. 50th percentile is the average of the general population and indicates half of respondents had a worse score. Depression Screening: PHQ-9 10/19/2022 Score 21 PHQ-9 Self Harm 10/19/2022 Question 9 More than half the days PHQ-9 Self-Harm (Item 9) response options: 0 Not at all 1 Several days 2 More than half the days 3 Nearly every day PHQ-9 Levels: 0-4 No - mild depression 5-9 Mild depression 10-14 Moderate depression 15-19 Moderately severe depression 20-27 Severe depression There is no problem list on file for this patient. No past medical history on file. No past surgical history on file. No family history on file. ALLERGIES Not on File CURRENT MEDICATIONS: No prescriptions on file. REVIEW OF SYSTEMS: OBJECTIVE: PHYSICAL EXAM There were no vitals taken for this visit. GENERAL APPEARANCE: Well appearing, well-hydrated, well nourished and alert SKIN: Head, neck, trunk, and extremities dry, intact and without lesions HEART: Regular rate and rhythym, Murmur negative LUNGS: even and non-labored breathing, normal chest excursion LYMPHATICS: No palpable lymphadenopathy in the neck, axilla, or groin NEURO/PSYCH: oriented to time, place, and person, speech normal, mental status intact GAIT: normal, toe walking normal, heel walking normal, able to tandem gait POSTURE: Posture and spinal curves are normal PALPATION: paraspinal tenderness; lumbar MUSCULOSKELETAL: Extended Low Back & Leg Exam Lumbar Range of Motion Flexion N/A Extension Normal RIGHT LEFT Lateral Bending Full Full Oblique Extension Within Normal Limits Within Normal Limits Leg Raise Straight Leg Raise Negative Negative Contralateral Straight Leg Raise Negative Negative DTRs Knee Normal Normal Ankle Normal Normal Medial Hamstring Normal Normal Babinski normal normal Strength of Lower Extremities Extensor Hallux Longus 5/5 5/5 Ankle Dorsiflexion 5/5 5/5 Ankle Plantarflexion 5/5 5/5 Knee Extension 5/5 5/5 Orquidea's Exam: Superficial non-anatomic tenderness: Yes Overreaction: Yes Pain on simulated maneuvers: No Straight Leg Raise test discrepancy: No Give-way weakness: No Non-dermatomal sensory loss: No Hip Range of Motion RIGHT LEFT Flexion Normal Normal Extension Normal Normal Abduction Normal Normal Adduction Normal Normal Internal Rotation Normal Normal External Rotation Normal Normal Hip Exam RIGHT LEFT GORDON Exam Normal Normal Trochanteric Bursa Tenderness Normal Normal Gaenslen's Maneuver Normal Normal Stefani's Test (IT-Band Pathology) Normal Normal NEUROSENSORY: Differentiation of sharp and light touch; Within Normal Limits Neuro Tests: Cranial Nerves: Normal mood and affect. CNII-XII grossly intact. Data Review: [facility] records independently reviewed Imaging and outside records independently reviewed Images independently reviewed with the patient EXAMINATION: MRI LSPINE WO CON HISTORY: Low back pain ; chronic lumbar pain radiating into left leg; bilateral leg weakness COMPARISON: XR L-spine 08/10/2022 TECHNIQUE: A variety of imaging planes and parameters were utilized for visualization of suspected pathology. FINDINGS: For the purposes of numbering, sagittal T2 image # 8 extends from the T11 vertebral body superiorly to the S3 level inferiorly. PARASPINAL AREA: Normal with no visible mass. BONES: No fracture, pars defect, or osseous lesion. CORD/CAUDA EQUINA: Normal caliber, contour, and signal intensity. DISC LEVELS: 12-L1: No significant disc/facet abnormality, spinal stenosis, or foraminal stenosis. L1-L2: No significant disc/facet abnormality, spinal stenosis, or foraminal stenosis. L2-L3: No significant disc/facet abnormality, spinal stenosis, or foraminal stenosis. L3-L4: No significant disc/facet abnormality, spinal stenosis, or foraminal stenosis. L4-L5: Early degenerative disc disease is present without focal protrusion or neural impingement. L5-S1: Marked right, moderate left foramen narrowing without significant central canal narrowing. Moderate diffuse disc bulging and mild disc height reduction. Mild degenerative facet arthropathy bilaterally. IMPRESSION: 1. Marked right and moderate left foramen narrowing at L5-S1 secondary to moderate degenerative disc disease and mild degenerative facet arthropathy. It is noted that patient history describes symptoms involving left leg. ASSESSMENT/PLAN (M54.50, G89.29) Chronic bilateral low back pain without sciatica (primary encounter diagnosis) Comment: MRI reviewed with some narrowing at the R L5-S1 foramen, no central stenosis. Pain is morein the middle of the lumbar spine. Discussed with the patient that he is unlikely to be a good surgical candidate due to the majority of his pain in the back as well as non dermatomal pain in the legs. Imaging does not correlate with the patients symptoms. He has already failed injection and RFA therapy with his local pain provider. Will refer to the chronic pain program for further treatment. Plan: [facility] TO [facility]) Imaging Ordered: None SIGNATURE: Olayinka Boyd PA-C PATIENT NAME: Bhavesh Cárdenas DATE: October 19, 2022 TIME: 1:01 PM documented in this encounterAdena [facility]12-22-[facility] Evaluation note* Encounter Date Diagnosis Assessment Notes Treatment Notes Treatment Clinical Notes Sep, Right hip pain (ICD-10 - M25.551) Sep, Pain of right sacroiliac joint (ICD-10 - M53.3) Sep, Other I had a long discussion with the patient today regarding etiology of his pain. I explained to him that his hip x-ray overall looks really good. While there may be some very mild marginal spurring and very mild joint space narrowing I do not feel that any of his pain is necessary related to his hip joint. Furthermore, I do not feel that any of his pain is related to the lateral aspect of his hip in the gluteal region or greater trochanteric bursa region. My biggest concern is that his right SI joint is causing his pain and as a result I recommended that he follow-up with his paint brush maker, Dr. Fontanez, to discuss further treatment options including possibly injections. [email or web address] Other 12-20-2022 Evaluation note* Encounter Date Diagnosis Assessment Notes Treatment Notes Treatment Clinical Notes Sep, Trochanteric bursitis of right hip (ICD-10 - M70.61) Will refer to Orhtopedics for further evaluation. Sep, Lumbar disc disease (ICD-10 - M51.9) I independently reviewed the plain x-ray of the lumbar spine and the MRI of the lumbar spine which showed mild disc compression at the L5-S1. Patient pain is from sacroiliac joint that may improve with conservative therapy of joint injections which was discussed with patient. The pain on the right side is likely from hip/trocanter pain and not from compression or nerve root involment. Will continue with conservative therapy, pain management and refer to orthopedics for further evaluation of hip envolvement. No surgical intervention is needed for his back Sep, Arthropathy of right hip (ICD-10 - M16.11) Sep, Inflammation of right sacroiliac joint (ICD-10 - M46.1) [email or web address] Other 10-13-2022 Evaluation note* Encounter Date Diagnosis Assessment Notes Treatment Notes Treatment Clinical Notes Jul, Patellofemoral arthritis of right knee (ICD-10 - M17.11) Jul, Acute pain of right knee (ICD-10 - M25.561) Jul, Internal derangement of right knee (ICD-10 - M23.91) [facility] xrays and MRI reviewed with patient. We will treat this conservatively for now. We discussed the conservative treatment options which can be beneficial in relieving pain, including gentle non-impact motion exercise and non-steroidal anti-inflammatory medication. We discussed the use of occasional cortisone injections that can provide pain relief, patient declines at this time. Patient declines formal therapy order, will work on exercises as previously instructed by PT. If no improvement, may consider new MRI for evaluation for meniscal tear. [email or web address] Other 10-06-2022 NotePROCEDURE: XR KNEE RT 4V or > COMPARISON: 11/16/2021 HISTORY: Pain in right knee FINDINGS: BONES:No fracture, acute abnormality, or significant arthropathy. SOFT TISSUES:Negative. No visible soft tissue swelling. EFFUSION:None visible. OTHER: Negative. IMPRESSION: No acute abnormality Electronically authenticated by: WASHINGTON DURAN Date: 2022-07-13 14:25[facility] [id number] History general Narrative - Reported* Type Description Date Medical History restless leg syndrome Medical History seasonal allergies Medical History DM Surgical History left knee surgery x 2 Surgical History L1-L5 ablation 08/2021 Hospitalization History No know Hospitalization history [email or web address] Other Evaluation noteNo assessment information available [facility] Work Phone: Evaluation note* Diagnosis Chronic bilateral low back pain without sciatica- Primary documented in this encounter [facility] note* Diagnosis Localized, primary osteoarthritis of hand, unspecified laterality- Primary Arthritis Arthropathy, unspecified, site unspecified Chronic right-sided low back pain without sciatica documented in this encounter [facility] note* Diagnosis Localized, primary osteoarthritis of hand, unspecified laterality Arthritis Arthropathy, unspecified, site unspecified Chronic right-sided low back pain without sciatica documented in this encounter [facility] noteNo InformationNortFourth[employer] Other Evaluation note* Diagnosis Chronic pain syndrome- Primary Chronic bilateral low back pain without sciatica Disturbance of sleep pattern associated with pain Lumbar spondylosis Lumbosacral spondylosis without myelopathy Sacroiliitis (HCC) Sacroiliitis, not elsewhere classified Sacroiliitis (HCC) Sacroiliitis, not elsewhere classified documented in this encounter [facility] note* Diagnosis APPOINTMENT CANCELLED- Primary Sacroiliitis (HCC) Sacroiliitis, not elsewhere classified documented in this encounter [facility] note* Diagnosis Pain disorder associated with psychological factors and medical condition- Primary Other pain disorders related to psychological factors Chronic pain syndrome Sacroiliitis (HCC) Sacroiliitis, not elsewhere classified documented in this encounter [facility] note* Diagnosis Moderate persistent asthma without complication (CMS/HCC)- Primary documented in this encounter [facility] HealthcareHistory general Narrative - Reported* Type Description Date Medical History restless leg syndrome Medical History seasonal allergies Medical History DM Medical History Arthritis Medical History asthma Medical History diabetes mallitus Surgical History left knee surgery x 2 Surgical History L1-L5 ablation 08/2021 Hospitalization History No know Hospitalization history [email or web address] Other History general Narrative - Reported* Type Description Date Medical History restless leg syndrome Medical History seasonal allergies Medical History DM Medical History Arthritis Medical History asthma Medical History diabetes mallitus Surgical History left knee surgery x 2 Surgical History L1-L5 ablation 08/2021 Hospitalization History No Hospitalization histo ry information [email or web address] Other History general Narrative - Reported* Type Description Date Medical History restless leg syndrome Medical History seasonal allergies Medical History DM Medical History Arthritis Medical History asthma Medical History diabetes mallitus Surgical History left knee surgery x 2 Surgical History L1-L5 ablation 08/2021 Hospitalization History see above [email or web address] Other Hospital Discharge instructions Additional Instructions Continue your current medication May apply ice to the sore area To do stretching May use topical medicine such as IcyHot with lidocaine Bengay with lidocaine or lidocaine patch Follow-up with your back specialist Return to the ER for more severe pain weakness in your legs loss of bladder bowel control high fever or [facility] Work [facility]: Hospital Discharge instructions Additional Instructions May apply 1-2 lidocaine patches over sores areas daily Continue your other medication Follow-up with your doctor Return to the ER for worsening pain weakness in your legs loss of bladder bowel control [facility] Work Phone: Reason for referral (narrative)* Diagnostic Procedure Only (Routine) - Closed Specialty Diagnoses / Procedures Referred By Contac t Referred To Contact XR IMAGING Diagnoses Localized, primary osteoarthritis of hand, unspecified laterality Arthritis Chronic right-sided low back pain without sciatica Procedures XR HAND/WRIST SURVEY ARTHRITIS 1V PA BILATERAL JOINT SURVEY SINGLE VIEW 2 [place] [address] [place] [address] Xr Imaging Referral ID Status Reason Start Date Expiration Date V isits Requested Visits Authorized [id number] Closed Auto-Generate d Referral 10/30/2022 11/29/2023 1 1 [facility] for referral (narrative)* Diagnostic Procedure Only (Routine) - Closed Specialty Diagnoses / Procedures Referred By Contac t Referred To Contact XR IMAGING Diagnoses Localized, primary osteoarthritis of hand, unspecified laterality Arthritis Chronic right-sided low back pain without sciatica Procedures XR HAND/WRIST SURVEY ARTHRITIS 1V PA BILATERAL JOINT SURVEY SINGLE VIEW 2 [place] [address] [place] [address] Xr Imaging Referral ID Status Reason Start Date Expiration Date V isits Requested Visits Authorized [id number] Closed Auto-Generate d Referral 10/30/2022 11/29/2023 1 1 [facility] Outpatient Procedure (Routine) - Closed Specialty Diagnoses / Procedures Referred By Jevon penaloza Referred To Contact [facility] / SPINE Diagnoses Sacroiliitis, not elsewhere classified Injection Type - Intra-articular Sacroiliac joint injection: Bilateral CPT 60366 Procedures INJECT SI JOINT ARTHRGRPHY&/ANES/STEROI D W/JB PROCEDURE SPINE Kris[facility]ilohanDO [address] [place] [address] Spine Med [address] [place] [address] Referral ID Status Reason Start Date Expiration Date Visits Re quested Visits Authorized [id number] Closed 11/16/2022 12/05/2022 1 1 [facility] Chief Complaint and Reason for Visit Chief Complaint M25.551 Chief Complaint Back pain Chief Complaint m47.896 r29.2 m54.2 Chief Complaint m47.896 r29.2 m54.2 r53.1 r20.2 m47.896 Chief Complaint r53.1 r20.2 m47.896 FCE back pain, rt leg pain Advance Directives Advance Directive Response Recorded Date/ Time Advance Directives No March 25 6:08am Advance Directive Response Recorded Date/ Time Advance Directives No March 25 7:08am Reason for Referral Reason second opinion, surg ical consult Diagnosis 1 Inflammation of righ t sacroiliac joint (M46.1) Diagnosis 2 Lumbar spondylosis ( M47.816) Referral Organization [facility] Referring Provider First Name Francis Referring Provider Last Name Cortney Referring Provider Specialty Neurologica l Surgery Referred Organization [facility] Referred Address [address] [place], [place],[address] Referred Provider Specialty Neurosurgery Referral Priority Routine Reason evaluate and treat f or sacroiliac and axial back pain \ Diagnosis 1 Sacro-iliac pain (M5 3.3) Referral Organization [facility] Referring Provider First Name Francis Referring Provider Last Name Cortney Referring Provider Specialty Neurologica l Surgery Referred Organization [facility] Ramiro Barrett Referred Provider Nahid Estevez Referred Address [address] [place], [place],[address] Referred Provider Specialty Pain Medicin e Referral Priority Routine Specialty Diagnoses / Procedures Referred By Contac t Referred To Contact Diagnoses Disturbance of sleep pattern associated with pain Procedures CONSULT TO SLEEP MEDICINE - ADULT OFFICE/OUTPATIENT [facility] 60-74 MINUTES Kb Lorenzo, [address] [place] [address] Referral ID Status Reason Start Date Expiration Date Visits Requested Visits Authorized [id number] Authorized PCP Requested Referral 11/15/2022 11/15/2023 1 1 Specialty Diagnoses / Procedures Referred By Contac t Referred To Contact [facility] Diagnoses Chronic pain syndrome Procedures CONSULT TO [facility] ([facility] PAIN) OFFICE/OUTPATIENT [facility] 60-74 MINUTES Kb Lorenzo DO [address] [place] [address] Referral ID Status Reason Start Date Expiration Date Visits Requested Visits Authorized [id number] Pending Review PCP Requested Referral 11/15/2022 11/15/2023 1 1 Specialty Diagnoses / Procedures Referred By Contac t Referred To Contact [facility] Diagnoses Chronic pain syndrome Procedures CONSULT TO [facility] PHYSICIAN OFFICE/OUTPATIENT [facility] 60-74 MINUTES Kb Lorenzo, [address] [place] [address] [place] [address] Referral ID Status Reason Start Date Expiration Date V isits Requested Visits Authorized [id number] Closed PCP Requested Referral 11/15/2022 11/15/2023 1 1 Specialty Diagnoses / Procedures Referred By Contac t Referred To Contact [facility] Diagnoses Chronic bilateral low back pain without sciatica Chronic pain syndrome Procedures CONSULT TO PHYSICAL THERAPY PHYSICAL THERAPY EVALUATION HIGH COMPLEX 45 MINS Kb Lorenzo, [address] [place] [address] [facility] [address] [place] [address] Referral ID Status Reason Start Date Expiration Date Visits Requested Visits Authorized [id number] Pending Review Auto-Generat ed Referral 11/15/2022 11/15/2023 1 1 Reason 09/28/22 @ 11:30am Evaluate and Treat R Hip Arthropathy Diagnosis 1 Trochanteric bursiti s of right hip (M70.61) Referral Organization [facility] Referring Provider First Name Francis Referring Provider Last Name Cortney Referring Provider Specialty Neurologica l Surgery Referred Organization [facility] Referred Provider Milton Valentine II Referred Address [address] [facility] [address] [facility] [place],[address] Referred Provider Specialty Orthopedic S urgery Referral Priority Routine Referral Appointment Date 2022-09-28 General Notes LachelleBhavinn 022 01:18:44 PM >Received today and sent P2P [facility] 09/28/2022 02:47:43 PM >[facility] been [facility] 08[facility]58[facility]01 AM >Consult notes not locked yet [facility] 10/06/2022 11:26:02 AM >Consult notes not locked yet [facility] 10/10/2022 09:04:40 AM >Consult notes not locked yet [facility] 10/11/2022 09:00:47 AM >Consult notes not locked yet [facility] 10/12/2022 08:14:26 AM >Consult notes not locked yet [facility] 10/13/2022 12:17:19 PM >Office notes not locked yet [facility] 10/16/2022 10:10:49 AM >Sent telephone encounter to referring physician to let them know that the consult letter is ready for their review Specialty Diagnoses / Procedures Referred By Jevon penaloza Referred To [facility] Diagnoses Chronic bilateral low back pain without sciatica Procedures CONSULT TO [facility] ([facility]RONIC PAIN) OFFICE/OUTPATIENT [facility] 60-74 MINUTES Olayinka Boyd PA-C [address] [place] [address] Referral ID Status Reason Start Date Expiration Date Visits Requested Visits Authorized [id number] Pending Review PCP Requested Referral 10/19/2022 10/19/2023 1 1 Summary Purpose Family History No Family History Records FoundNo Family History Records FoundNo Family History Records FoundNo Family History Records FoundNo Family History Records FoundNo Family History Records Found Additional Source Comments REASON FOR VISIT (unrecogniz ed section and content) Reason Comments Low Back Pain Reason Comments Radio Gen A21 Specialty Diagnoses / Procedures Referred By Contac t Referred To Contact XR IMAGING Diagnoses Localized, primary osteoarthritis of hand, unspecified laterality Arthritis Chronic right-sided low back pain without sciatica Procedures XR HAND/WRIST SURVEY ARTHRITIS 1V PA BILATERAL JOINT SURVEY SINGLE VIEW 2 [place] [address] [place] [address] Xr Imaging Referral ID Status Reason Start Date Expiration Date V isits Requested Visits Authorized [id number] Closed Auto-Generate d Referral 10/30/2022 11/29/2023 1 1 Specialty Diagnoses / Procedures Referred By Contac t Referred To Contact [facility] Diagnoses Chronic bilateral low back pain without sciatica Procedures CONSULT TO [facility] ([facility]RONIC PAIN) OFFICE/OUTPATIENT [facility] 60-74 MINUTES Olayinka Body PA-C [address] [place] [address] Referral ID Status Reason Start Date Expiration Date Visits Requested Visits Authorized [id number] Pending Review PCP Requested Referral 10/19/2022 10/19/2023 1 1 Reason Comments pre inj phone call Reason Comments Consult Specialty Diagnoses / Procedures Referred By Contac t Referred To [facility] Diagnoses Chronic pain syndrome Procedures CONSULT TO [facility] ([facility]RONIC PAIN) OFFICE/OUTPATIENT [facility] 60-74 MINUTES Kb Lorenzo DO [address] [place] [address] Referral ID Status Reason Start Date Expiration Date Visits Requested Visits Authorized [id number] Pending Review PCP Requested Referral 11/15/2022 11/15/2023 1 1 Reason Comments Patient Question Reason Comments Electronic Communication Reason Onset Date Comments Refill Request 04/16/2023 Reason Onset Date Comments Refill Request 07/04/2023 Trazodone Rx Refill Request 07/05/2023 Refill Request 07/06/2023 Care Teams (unrecognized sec tion and content) Team Status: Inactive Member Role Status Dates Carmen Wheatley MD Primary Care Provider Active Milton Valentine II, MD Attending Provider Active Team Status: Active Member Role Status Dates Carmen Wheatley MD Primary Care Provider Active Manager Hris Relationship Specialty Start Date End Date Shaikh Prater MD [address] [place] [address] PCP - General Primary Care 10/30/22 Manager Hris Relationship Specialty Start Date End Date Shaikh Prater MD [facility] [place] [address] PCP - General Primary Care 10/30/22 Manager Hris Relationship Specialty Start Date End Date Shaikh Prater MD [facility] [place] [address] PCP - General Primary Care 10/30/22 Manager Hris Relationship Specialty Start Date End Date Shaikh Prater MD [address] [place] [address] PCP - General Primary Care 10/30/22 Manager Hris Relationship Specialty Start Date End Date Shaikh Prater MD [facility] [place] [address] PCP - General Primary Care 10/30/22 Manager Hris Relationship Specialty Start Date End Date Shaikh Prater MD [address] [place] [address] PCP - General Primary Care 10/30/22 Team Status: Active Member Role Status Dates Shaikh Moi MD Primary Care Provider Active Team Status: Inactive Member Role Status Dates Kristina Delgado , [facility] Emergency Provider Active Shaikh Moi MD Primary Care Provider Active Manager Hris Relationship Specialty Start Date End Date Shaikh Prater MD [address] [place] [address] PCP - General Primary Care 10/30/22 Manager Hris Relationship Specialty Start Date End Date Shaikh Prater MD [address] [place] [address] PCP - General Primary Care 10/30/22 Manager Hris Relationship Specialty Start Date End Date Shaikh Prater MD [facility] [place] [address] PCP - General Primary Care 10/30/22 Manager Hris Relationship Specialty Start Date End Date Shaikh Prater MD [address] [place] [address] PCP - General Primary Care 10/30/22 Team Status: Inactive Member Role Status Beth Prater MD Primary Care Provider Active [facility] Attending Provider Active Team Status: Inactive Member Role Status Dates Shaikh Moi MD Primary Care Provider Active GINO López Attending Provider, Referri ng Provider Active Team Status: Inactive Member Role Status Beth Prater MD Primary Care Provider Active Kristina Delgado [facility] Emergency Provider Active Team Status: Inactive Member Role Status Beth Prater MD Primary Care Provider Active Tracy Wu APRN Attending Provider Active Manager Hris Relationship Specialty Start Date End Date Shaikh Prater MD PCP - General Internal Medicine 10/08/22 Goals (unrecognized section and content) Goals may be documented in a n alternate section Source Comments (unrecognize d section and content) In the event this informatio n is protected by the Federal Confidentiality of Alcohol and Drug Abuse Patient Records regulations: The Federal rules restrict any use of the information to criminally investigate or prosecute any alcohol or drug abuse patient.[facility] the event this information is protected by the Federal Confidentiality of Alcohol and Drug Abuse Patient Records regulations: The Federal rules restrict any use of the information to criminally investigate or prosecute any alcohol or drug abuse patient.[facility] CenterIn the event this information is protected by the Federal Confidentiality of Alcohol and Drug Abuse Patient Records regulations: The Federal rules restrict any use of the information to criminally investigate or prosecute any alcohol or drug abuse patient.[facility] Center[facility] the event this information is protected by the Federal Confidentiality of Alcohol and Drug Abuse Patient Records regulations: The Federal rules restrict any use of the information to criminally investigate or prosecute any alcohol or drug abuse patient.[facility] CenterIn the event this information is protected by the Federal Confidentiality of Alcohol and Drug Abuse Patient Records regulations: The Federal rules restrict any use of the information to criminally investigate or prosecute any alcohol or drug abuse patient.[facility] CenterIn the event this information is protected by the Federal Confidentiality of Alcohol and Drug Abuse Patient Records regulations: The Federal rules restrict any use of the information to criminally investigate or prosecute any alcohol or drug abuse patient.[facility] CenterIn the event this information is protected by the Federal Confidentiality of Alcohol and Drug Abuse Patient Records regulations: The Federal rules restrict any use of the information to criminally investigate or prosecute any alcohol or drug abuse patient.[facility] CenterIn the event this information is protected by the Federal Confidentiality of Alcohol and Drug Abuse Patient Records regulations: The Federal rules restrict any use of the information to criminally investigate or prosecute any alcohol or drug abuse patient.[facility] CenterIn the event this information is protected by the Federal Confidentiality of Alcohol and Drug Abuse Patient Records regulations: The Federal rules restrict any use of the information to criminally investigate or prosecute any alcohol or drug abuse patient.[facility] CenterIn the event this information is protected by the Federal Confidentiality of Alcohol and Drug Abuse Patient Records regulations: The Federal rules restrict any use of the information to criminally investigate or prosecute any alcohol or drug abuse patient.[facility] CenterIn the event this information is protected by the Federal Confidentiality of Alcohol and Drug Abuse Patient Records regulations: The Federal rules restrict any use of the information to criminally investigate or prosecute any alcohol or drug abuse patient.[facility] CenterIn the event this information is protected by the Federal Confidentiality of Alcohol and Drug Abuse Patient Records regulations: The Federal rules restrict any use of the information to criminally investigate or prosecute any alcohol or drug abuse patient.[facility] CenterIn the event this information is protected by the Federal Confidentiality of Alcohol and Drug Abuse Patient Records regulations: The Federal rules restrict any use of the information to criminally investigate or prosecute any alcohol or drug abuse patient.[facility] CenterIn the event this information is protected by the Federal Confidentiality of Alcohol and Drug Abuse Patient Records regulations: The Federal rules restrict any use of the information to criminally investigate or prosecute any alcohol or drug abuse patient.[facility] CenterIn the event this information is protected by the Federal Confidentiality of Alcohol and Drug Abuse Patient Records regulations: The Federal rules restrict any use of the information to criminally investigate or prosecute any alcohol or drug abuse patient.[facility] CenterIn the event this information is protected by the Federal Confidentiality of Alcohol and Drug Abuse Patient Records regulations: The Federal rules restrict any use of the information to criminally investigate or prosecute any alcohol or drug abuse patient.[facility] (unrecognized sect ion and content) No Status Records FoundNo Status Records FoundNo Status Records FoundNo Status Records FoundNo Status Records FoundNo Status Records Found INFORMATION SOURCE (unrecogn ized section and content) DATE CREATED AUTHOR 03/16/[address] [facility] DATE CREATED AUTHOR AUTHOR'S ORGANIZ ATION 03/29/2023 [facility] DATE CREATED AUTHOR AUTHOR'S ORGANIZ ATION 05/27/2023 [facility] DATE CREATED AUTHOR AUTHOR'S ORGANIZ ATION 09/06/2023 [facility] DATE CREATED AUTHOR AUTHOR'S ORGANIZ ATION 10/17/2023 [facility] DATE CREATED AUTHOR AUTHOR'S ORGANIZ ATION 2023 [facility] FOR RECORDS PERTAINING TO PATIENTS WHO ARE OR HAVE BEEN ENROLLED IN A CHEMICAL DEPENDENCY/SUBSTANCEABUSE PROGRAM, SOME INFORMATION MAY BE OMITTED. This clinical summary was aggregated from multiple sources. Caution should be exercised in using it in the provision of clinical care. This summary normalizes information from multiple sources, and as a consequence, information in this document may materially change the coding, format and clinical context of patient data. In addition, data may be omitted in some cases. CLINICAL DECISIONS SHOULD BE BASED ON THE PRIMARY CLINICAL RECORDS. [facility]. provides no warranty or guarantee of the accuracy or completeness of information in this document.
[2023-11-12 12:43] LABS: Basophils Absolute Auto 0.1 10^3/uL (0.0-0.1); Basophils Percent Auto 0.8 % (0.2-2.0); Eosinophils Absolute Auto 0.2 10^3/uL (0.0-0.7); Eosinophils Percent Auto 2.1 % (0.9-7.0); Hematocrit 44.4 % (42.0-54.0); Hemoglobin 15.1 g/dL (14.0-18.0); Immature Granulocytes Abs Auto 0.06 10^3/uL (0.00-0.03); Immature Granulocytes Pct Auto 0.5 % (0.0-0.5); Lymphocytes Absolute Auto 3.1 10^3/uL (1.2-3.8); Lymphocytes Percent Auto 27.4 % (20.5-60.0); Mean Corpuscular Hemoglobin 29.7 pg (25.9-34.0); Mean Corpuscular Volume 87.4 fL (80.0-94.0); Mean Platelet Volume 10.9 fL (9.5-13.5); Monocytes Absolute Auto 0.7 10^3/uL (0.3-0.8); Monocytes Percent Auto 6.5 % (1.7-12.0); Neutrophils Absolute Auto 7.2 10^3/uL (1.4-6.5); Neutrophils Percent Auto 62.7 % (43.0-75.0); Platelet Count 340 10^3/uL (150-450); Red Blood Count 5.08 10^6/uL (4.70-6.10); Red Cell Distribution Width 12.6 % (11.0-15.0); White Blood Count 11.5 10^3/uL (4.0-11.0)
[2023-11-12 12:50] LABS: Creatinine Urine Random 158.53 mg/dL (20.00-300.00); Microalbum Creatinine Ratio Ur 30.2 mg/g (0.0-29.9); Microalbumin Urine Random 4.8 mg/dL (<=30.0)
[2023-11-12 12:52] LABS: Estimated Average Glucose 280 mg/dL; Glycohemoglobin A1C 11.4 % (4.5-6.2)
[2023-11-12 13:07] LABS: Alanine Aminotransferase 37 U/L (16-63); Albumin Globulin Ratio 0.9; Albumin Level 3.7 g/dL (3.4-5.0); Alkaline Phosphatase 129 U/L (46-116); Anion Gap 16.2; Aspartate Amino Transferase 13 U/L (15-37); BUN Creatinine Ratio 13.4; Bilirubin Total 0.5 mg/dL (0.2-1.0); Calcium 9.1 mg/dL (8.5-10.1); Carbon Dioxide 24.1 mmol/L (21.0-32.0); Chloride 98 mmol/L (98-107); Chol HDL Ratio 7.3; Cholesterol 241 mg/dL (<=200); Estimated GFR (African America >60 (>=60); Estimated GFR (Non-African Ame >60 (>=60); Glucose 341 mg/dL (74-106); HDL Cholesterol 33 mg/dL (40-60); Potassium 4.3 mmol/L (3.5-5.1); Sodium 134 mmol/L (136-145); Total Protein 7.7 g/dL (6.4-8.2); Triglycerides 1009 mg/dL (<=150); VLDL CHOLESTEROL 201.8 mg/dL
[2023-11-12 13:11] LABS: LDL Cholesterol Direct 73 mg/dL
== END 2023-11-12 12:18 | disposition home or self-care (01) ==
LOC: LAB 12:18
PROVIDERS: PCP Internal Medicine; Visit Provider Internal Medicine
DX: E78.5 Hyperlipidemia, unspecified (principal); I10 Essential (primary) hypertension; E11.9 Type 2 diabetes mellitus without complications
CPT/HCPCS: 36415; 80053; 80061; 82043; 82570; 83036; 83721; 85025

== ENCOUNTER 2024-05-28 08:48 | Outpatient (OUT) | payer MEDICAID, SELFPAY ==
[2024-05-28 09:02] LABS: Basophils Absolute Auto 0.1 10^3/uL (0.0-0.1); Basophils Percent Auto 0.7 % (0.2-2.0); Eosinophils Absolute Auto 0.3 10^3/uL (0.0-0.7); Eosinophils Percent Auto 2.4 % (0.9-7.0); Hematocrit 41.4 % (42.0-54.0); Hemoglobin 14.6 g/dL (14.0-18.0); Immature Granulocytes Pct Auto 0.9 % (0.0-0.5); Lymphocytes Absolute Auto 2.6 10^3/uL (1.2-3.8); Lymphocytes Percent Auto 24.5 % (20.5-60.0); Mean Corpuscular HGB Conc 35.3 g/dL (29.9-35.2); Mean Corpuscular Hemoglobin 30.6 pg (25.9-34.0); Mean Corpuscular Volume 86.8 fL (80.0-94.0); Mean Platelet Volume 10.5 fL (9.5-13.5); Monocytes Absolute Auto 0.7 10^3/uL (0.3-0.8); Monocytes Percent Auto 6.6 % (1.7-12.0); Neutrophils Absolute Auto 6.9 10^3/uL (1.4-6.5); Neutrophils Percent Auto 64.9 % (43.0-75.0); Platelet Count 308 10^3/uL (150-450); Red Blood Count 4.77 10^6/uL (4.70-6.10); Red Cell Distribution Width 12.4 % (11.0-15.0); White Blood Count 10.6 10^3/uL (4.0-11.0)
[2024-05-28 09:35] LABS: Alanine Aminotransferase 40 U/L (16-63); Albumin Level 3.6 g/dL (3.4-5.0); Alkaline Phosphatase 139 U/L (46-116); Anion Gap 14.1; Aspartate Amino Transferase <5 U/L (15-37); BUN Creatinine Ratio 14.1; Bilirubin Total 0.3 mg/dL (0.2-1.0); Calcium 9.2 mg/dL (8.5-10.1); Carbon Dioxide 26.3 mmol/L (21.0-32.0); Chloride 95 mmol/L (98-107); Chol HDL Ratio 6.9; Cholesterol 233 mg/dL (<=200); Estimated GFR (African America >60 (>=60); Estimated GFR (Non-African Ame >60 (>=60); Globulin 3.5 g/dL; Glucose 350 mg/dL (74-106); HDL Cholesterol 34 mg/dL (40-60); Potassium 4.4 mmol/L (3.5-5.1); Sodium 131 mmol/L (136-145); Total Protein 7.1 g/dL (6.4-8.2); Triglycerides 980 mg/dL (<=150)
[2024-05-28 09:39] LABS: LDL Cholesterol Direct 77 mg/dL
[2024-05-28 10:10] LABS: Estimated Average Glucose 283 mg/dL; Glycohemoglobin A1C 11.5 % (4.5-6.2)
== END 2024-05-28 08:49 | disposition home or self-care (01) ==
LOC: LAB 08:49
PROVIDERS: PCP Internal Medicine; Visit Provider Internal Medicine
DX: E78.5 Hyperlipidemia, unspecified (principal); E11.65 Type 2 diabetes mellitus with hyperglycemia
CPT/HCPCS: 36415; 80053; 80061; 83036; 83721; 85025

== ENCOUNTER 2024-06-27 14:47 | Outpatient (OUT) | payer MEDICAID, SELFPAY ==
--- OUTSIDE RECORDS SUMMARY | 2024-06-27 14:56 | XMS_ITS | CCD ---
Author Organization [facility] Care Team Providers Care Non Profit Job Titles Name Role Phone Nahid Gu Unavailable MD Carmen Wheatley Primary Care Provider MD Milton Valentine II Attending Provider Unavailable Primary Care Provider UnavailShaikh Nichols MD Primary Care Provider [phone] Francis Barr Unavailable Milton Valentine II Unavailable Danny, [facility] Kristina Mak Emergency Provider MD Masood Prater Primary Care Provider ARCELIA JUAREZ Admitting Unavailable FAWWAD, MEYER H Primary Care Unavailable ARCELIA JUAREZ Attending Unavailable DR WASHINGTON DURAN V Consulting Unavailable SLOAN .DORIS Consulting UnavailDR ERICK Ramirez Admitting Unavailable ELLIE ., DR SUAREZ Attending Unavailable JOSEPH ASHRAF Consulting Unavailable FAWWAD, MEYER H Primary Care Unavailable DIAB ., HASMUKH Admitting Unavailable DIAB ., HASMUKH Attending Unavailable DIAB ., HASMUKH Consulting Unavailable FAWWAD, MEYER H Primary Care Unavailable FAWWAJames, MEYER H Attending Unavailable FAWWAD, MEYER H Consulting Unavailable FAWWAD, MEYER H Primary Care Unavailable FAWWAD, MEYER H Admitting Unavailable FAWWAJames, MEYER H Attending Unavailable DR WASHINGTON DURAN [...] H Admitting Unavailable TANKHA, KB Referring Unavailable FAWRID, [facility] Primary Care Unavailable OLAYINKA BOYD Referring Unavailable TANKHA, KB Attending Unavailable FAWRID, [facility] Primary Care Unavailable SANTANA HARIRS Referring Unavailable FAWWAD, [facility] Primary Care Unavailable SANTANA HARRIS Referring Unavailable FAWWAD, [facility] Primary Care Unavailable SANTANA HARRIS Attending Unavailable OLAYINKA BOYD Attending Unavailable TANKHA, KB Attending Unavailable FAWRID, [facility] Primary Care Unavailable WASHINGTON CASTELLANOS Attending Unavailable TANKHA, KB Referring Unavailable FAWWAD, [facility] Primary Care Unavailable TANKHA, KB Admitting Unavailable TANKHA, KB Attending Unavailable FAWRID, [facility] Primary Care Unavailable MD Moi [facility] Primary Care Provider LARRY [facility] Tracy Attending Provider Aliza GREEN, Terri Colvin Attending Unavailable Jazmin, [facility] Tracy Referring Provider Carmen Washington Unavailable MD Moi [facility] Primary Care Provider Jazmin [facility] Tracy Attending Provider Jazmin [facility] Tracy Referring Provider STEVO Wu Attending Provider Kaminiva tee Delgado [facility] Kristina E Emergency Provider [phone] Moi GREEN, [facility] Provider [phone] Windnagel Tracy Admitting Unavailable ErinnaNatalio greenicia Attending Unavailable Jazmin, Tracy Referring [facility]available [facility] Primary Care Unavailable Fawwad, [facility] Primary Care Unavailable Windnagel, Tracy Admitting Unavailable Windnagel, Tracy Attending Unavailable Doritawtushar, [facility] Primary Care Unavailable Bullimore, Kristina E Admitting Unavailable Bullimore, Kristina E Attending Unavailable Doritawtushar, [facility] Primary Care Unavailable Bullimore, Kristina E Admitting Unavailable Bullimore, Kristina E Attending Unavailable Fawtushar, [facility] Primary Care Unavailable Windnagel, Tracy Admitting Unavailable Windnagel, Tracy Attending Unavailable Doritawtushar GREEN [facility] Care Provider [phone] ANANT SPANN Attending Unavailable DONAL, DANNI Referring Unavailable DONAL, DANNI Attending Unavailable OVITT, DUNIA Attending Unavailable RAPBHAVESH GILMORE Attending Unavailable DONAL, DANNI Referring Unavailable OVITT, DUNIA Referring Unavailable DONAL, DANNI Referring Unavailable FAWWAD, MEYER Attending Unavailable FAWWAD, MEYER Attending Unavailable FAWWAD, MEYER Attending Unavailable FAWWAD, MEYER Attending Unavailable FAWWAD, MEYER Attending Unavailable FAWWAD, MEYER Attending Unavailable DENIS RAMEY Attending UnavailJOS Mcrae Attending Unavailable Allergies Allergy Classification Reported Allergen(s) Allergy Type Date of Onset Reaction(s) Facility (14 sources) Ibuprofen; Translations: [IBUPROFEN] Drug Allergy 3 Anaphylaxis [facility] Other (13 sources) NSAIDs Propensity to adverse reactions 3 Anaphylaxis, Swelling, Shortness of breath [facility] (18 sources) Non-steroidal anti-inflammato ry agent; Translations: [NSAIDS (NON-STEROIDAL ANTI-INFLAMMATO RY DRUG)] Drug Allergy 3 Anaphylaxis, Other: See Comments, Shortness of Breath, Swelling [facility] (5 sources) NSAIDS (Non-Steroidal Anti-Inflamma; Translations: [NSAIDS (Non-Steroidal Anti-Inflamma] Allergy to substance 3 Anaphylaxis [facility] (1 source) NSAIDs Drug allergy (disorder) [facility] (6 sources) Aluminum aspirin; Translations: [ASPIRIN] Drug Allergy 3 Unknown [facility] (6 sources) Naproxen; Translations: [NAPROXEN] Drug Allergy 3 Anaphylaxis [facility] (6 sources) oxaprozin; Translations: [OXAPROZIN] Drug Allergy 3 Unknown [facility] (6 sources) traMADol; Translations: [TRAMADOL] Drug Allergy 3 [facility] (1 source) Ibuprofen Drug Allergy 3 [facility] (1 source) ALLERGIES NOT ON FILE; Translations: [ALLERGIES NOT ON FILE] Propensity to adverse reactions (disorder) [facility] Rep[facility] Medications Current Medications Medication Drug Class(es) Dates Sig (Normalized) Sig (Original) [id number] 200 actuat albuterol 0.09 mg/actuat metered dose [...] on above: INHALE 2 PUFFS BY MO UT EVERY 4 TO 6 HOURS NEEDED FOR SHORTNESS OF BREATH OR WHEEZING amLODIPine 5 mg oral tablet (5 sources) Dihydropyridine Calcium Channel Roland Start: 10-29-19 End: 01-27-20 take 1 tablet by mouth in the [...] Start: 09-26-2022 take 1 capsule by mo uth once daily DULoxetine (CYMBALTA) 60 mg capsule [...] on above: Take 1 capsule by [facility] three times daily for 90 days. Take 300 mg by mouth three times daily. glipiZIDE er 10 mg 24 hr extended release oral tablet (13 sources) Sulfonylurea Start: 07-19-2023 take 1 tablet [...] Active metFORMIN hydrochloride 1000 mg oral tablet (20 sources) Biguanide Start: 10-24-2023 End: 04-21-2024 take 1 tablet by mouth in the morning metFORMIN (Glucophage) 1000 MG tablet Indications: Type 2 diabetes mellitus without complication, without long-term current use of insulin ([facility]) Take 1 tablet (1,000 mg) by mouth in the morning and 1 tablet (1,000 mg) in the evening. Take with meals. 180 tablet 1 10/24/2023 04/21/2024 Active Start: 01-27-2023 Metformin Acti ve MG TABLET January 26, 2023 11:00pm Start: 01-09-2023 take 1 tablet by nirav every twelve hours metFORMIN (GLUCOPHAGE) 500 mg [...] 2023 12:00am OXcarbazepine 300 mg oral tablet (5 sources) Anti-epileptic Agent Start: 08-20-2023 take 1 tablet by mouth in the morning OXcarbazepine (Trileptal) 300 MG tablet Take 300 mg by mouth in the morning and 300 mg before bedtime. 0 08/20/2023 Active oxyCODONE hydrochloride 5 mg oral tablet (11 sources) Opioid Agonist Start: 11-19-2023 End: 12-19-2023 take 2 tablets by mouth every six hours for pain oxyCODONE (Roxicodone) 5 MG immediate release tablet Indications: Chronic neck and back pain Take 2 tablets (10 mg) by mouth every 6 (six) hours if needed for severe pain 200 tablet 0 11/19/2023 12/19/2023 Active Start: 10-23-2023 End: 11-22-2023 take 1 tablet by mouth every six hours for pain oxyCODONE (Roxicodone) 5 MG immediate release tablet Indications: Chronic neck and back pain Take 1 tablet (5 mg) by mouth every 6 (six) hours if needed for severe pain 120 tablet 0 10/23/2023 11/19/2023 Discontinued (Reorder) Start: 01-27-2023 Oxycodone Acti ve MG TABLET January 26, 2023 11:00pm pregabalin 200 mg oral capsule (5 sources) Start: 08-23-2023 take 1 capsule by mouth [...] Requip Active sertraline 50 mg oral tablet (5 sources) Serotonin Reuptake Inhibitor Start: 3 take 1 tablet by mouth in the morning sertraline (Zoloft) 50 MG tablet Take 50 mg by mouth in the morning. 0 08/22/2023 Active SITagliptin 100 mg oral tablet (5 sources) Dipeptidyl Peptidase 4 Inhibitor Start: 3 take 1 tablet by mouth in the morning Januvia 100 MG tablet Take 100 mg by mouth in the morning. 0 09/10/2023 Active tiZANidine 4 mg oral tablet (5 sources) Central alpha-2 Adrenergic Agonist Start: 3 take 1 tablet by mouth every eight hours as needed tiZANidine (Zanaflex) 4 MG tablet Take 1 tablet by mouth every 8 (eight) hours if needed 0 09/18/2023 Active traZODone hydrochloride 50 mg oral tablet (10 sources) Serotonin Reuptake Inhibitor Start: 3 End: [...] sources) Multivitamin Not -Taking/PRN Multivitamin Not -Taking phentermine hydrochloride 37.5 mg oral tablet (5 sources) Sympathomimetic Amine Anorectic Start: 10-16-2023 End: 11-19-2023 take 40-44.9 tablets by mouth before mealtime phentermine (Adipex-P) 37.5 MG tablet Indications: Class 3 severe obesity due to excess calories with serious comorbidity and body mass index (BMI) of 40.0 to 44.9 in adult ([facility]) Take 1 tablet (37.5 mg) by mouth in the morning. Take before meals. 30 tablet 0 10/16/2023 11/19/2023 Discontinued (Cost of medication) predniSONE 20 mg oral tablet (8 sources) [...] Classification Problem Date Documented Date Episodic/Chronic Asthma (20 sources) Mild asthma; Translations: [Unspecified asthma with (acute) exacerbation] Onset: 03-05-2023 11-08-2023 Chronic Diabetes mellitus with complications (11 sources) Type 2 diabetes mellitus with hyperglycemia; Translations: [Type II diabetes mellitus uncontrolled] Onset: 12-21-2022 Chronic Diabetes mellitus without complication (6 sources) Type 2 diabetes mellitus without complications; Translations: [Type 2 diabetes mellitus without complication] Onset: 03-05-2023 09-24-2023 Chronic Disorders of lipid metabolism (6 sources) Hyperlipidemia; Translations: [Hyperlipidemia, unspecified] Onset: 09-24-2023 09-24-2023 Chronic Esophageal disorders (1 source) Gastro-esophageal reflux disease without esophagitis; Translations: [GERD WITHOUT ESOPHAGITIS] Onset: 03-05-2023 Chronic Essential hypertension (7 sources) Essential hypertension; Translations: [Essential (primary) hypertension] Onset: 10-16-2023 10-16-2023 Chronic Joint disorders and dislocations; trauma-related (9 sources) Derangement of right knee; Translations: [Unspecified internal derangement of right knee] Chronic Miscellaneous mental health disorders (2 sources) Pain disorder with psychological factor; Translations: [Pain disorder with related psychological factors] Onset: 12-28-2022 Chronic Mood disorders (2 sources) Major depressive disorder, single episode, in full remission; Translations: [Major depressive disorder, single episode, in full remission] Onset: 03-05-2024 Chronic Osteoarthritis (20 sources) Arthritis of knee; Translations: [Unilateral primary osteoarthritis, right knee] Onset: 10-30-2022 Chronic Other aftercare (1 source) 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 drugs; Translations: [WANT AD SUPERVISOR USE ORAL HYPOGLYCEMIC DX] Onset: 03-05-2023 Episodic Other connective tissue disease (1 source) Trochanteric bursitis, right hip Episodic Other diseases of veins and lymphatics (8 sources) Peripheral venous insufficiency; Translations: [Venous insufficiency (chronic) (peripheral)] Episodic Other hereditary and degenerative nervous system conditions (5 sources) Restless legs; Translations: [Restless legs syndrome] Onset: 09-24-2023 09-24-2023 Chronic Other nervous system disorders (10 sources) Chronic pain syndrome; Translations: [Chronic pain syndrome] Onset: 03-30-2023 Chronic Other nervous system disorders (3 sources) Other chronic pain; Translations: [OTHER CHRONIC PAIN] Onset: 10-30-2022 Chronic Other nervous system disorders (2 sources) Chronic pain syndrome; Translations: [Chronic pain syndrome] Onset: 02-13-2023 Chronic Other non-traumatic joint disorders (5 sources) Polyarthropathy; Translations: [Polyarthritis, unspecified] Onset: 09-24-2023 09-24-2023 Chronic Other non-traumatic joint disorders (1 source) Pain in right hip Episodic Other nutritional; endocrine; and metabolic disorders (6 sources) Metabolic syndrome X; Translations: [Metabolic syndrome X] Onset: 09-24-2023 09-24-2023 Chronic Other nutritional; endocrine; and metabolic disorders (5 sources) Severe obesity; Translations: [Morbid (severe) obesity due to excess calories] Onset: 10-16-2023 10-16-2023 Chronic Other screening for suspected conditions (not mental disorders or infectious disease) (1 source) Encounter for screening for lipoid disorders; Translations: [ENC SCREENING FOR LIPOID DISORDERS] Onset: 12-29-2022 Episodic Other upper respiratory infections (1 source) Chronic sinusitis, unspecified; Translations: [CHRONIC SINUSITIS UNSPECIFIED] Onset: 10-24-2022 Chronic Residual codes; unclassified (2 sources) Hypersomnia; Translations: [Hypersomnia, unspecified] Onset: 11-19-2023 11-19-2023 Chronic Residual codes; unclassified (1 source) Sleep [...] problems; Translations: [Other spondylosis, lumbar region] Onset: 06-21-2023 Sprains and strains (5 sources) Low back strain; Translations: [Strain of muscle, fascia and tendon of lower back, initial encounter] Onset: 07-14-2022 01-27-2023 Episodic Unclassified (1 source) APPOINTMENT CANCELLED Unclassified (1 source) WANT AD SUPERVISOR INJECT NONINSULN ANTIDIAB; Translations: [WANT AD SUPERVISOR INJECT NONINSULN ANTIDIAB] Onset: 03-05-2023 Unclassified (3 [...] [Other low back pain] Onset: 01-27-2023 Unclassified (2 sources) Consult; Translations: [Consult] Onset: 11-21-2023 Viral infection (1 source) Zoster without complications Episodic Past or Other Problems Problem Classification Problem Date Documented Da te Episodic/Chronic E Codes: Natural/environment (1 source) Other and unspecified overexertion or strenuous movements or postures, initial encounter; Translations: [OTH AND UNS OVREXRT/STRN MVMT/POS INT] Onset: 07-14-2022 Episodic Other aftercare (1 source) Other watermelon inspector (current) drug therapy; Translations: [OTH WANT AD SUPERVISOR CURRENT DRUG THERAPY] Onset: 10-24-2022 Episodic Other [...] Test Name Value Interpretation Reference Range Facility Orders Onlyon 05-26-2024 Orders Only [id number] Ambrosejo annKeyur royalrebecca Carranza 1975 [facility] Provider Department Center 05/26/2024 752-PHYLLIS FORMAN MP PAIN Medical [facility]avi Family History Problem Relation Age of Onset Multiple sclerosis Father Prostate cancer Father Family Status - Relation Status Age at Father Normal [facility] Orders Onlyon 05-22-2024 Orders Only [id number] LisgennyBhavesh C 1975 Date Provider Department Center 05/22/2024 1800-DEEPIKA BRIONES MP PROC Medical [facility]avi Family History Problem Relation Age of Onset Multiple sclerosis Father Prostate cancer Father Family Status - Relation Status Age at Father Normal [facility] Office Visiton 04-16-2024 Follow-up visit [id number] Bhavesh Cárdenas 1975 Date Provider Department Center 04/16/2024 274-ANANT SPANN MP PAIN Medical [facility]avi Family History Problem Relation Age of Onset Multiple sclerosis Father Prostate cancer Father Family Status - Relation Status Age at Father Level of Service:17481 [place] OFFICE/OUTPATIENT ESTABLISHED MOD MDM 30 MIN Reason for Visit and Comments: Pain [136] - Chief complaint - pain from the neck all the way to the lower back that radiates through the groin area and down the legs Normal [facility] Procedure Visiton 03-05-2024 Procedure Visit [id number] Bhavesh Cárdenas Tere 1975 M Date Provider Department Center 03/05/2024 David-BHAVESH JAMES [facility] PS[facility]CH Eloise Heal Family History Problem Relation Age of Onset Multiple sclerosis Father Prostate cancer Father Family Status - Relation Status Age at Father Level of Service:49745 [place] OFFICE/OP CONSLTJ NEW/EST PT HIGH MDM 55 MINUTES Reason for Visit and Comments: Psychiatric Evaluation [864203] [facility] Office Visiton 02-19-2024 Follow-up visit [id number] Bhavesh Cárdenas 1975 M Date Provider Department Center 02/19/2024 Nestor-DANNI MANSFIELD [facility] SURG Second Fl Family History Problem Relation Age of Onset Multiple sclerosis Father Prostate cancer Father Family Status - Relation Status Age at Father Level of Service:83012 [place] OFFICE/OP CONSLTJ NEW/EST PT MOD MDM 40 MINUTES Reason for Visit and Comments: Follow-up [[id number]] - Pt is here for an office visit to discuss SCS. [facility] 36on 12-03-2023 36 Spoke with patient. Advised him that I had reviewed his cervical and lumbar spine imaging as well as EMG results with Dr. Mansfield and that Dr. Mansfield does not see anything on imaging or EMG reports that would require surgery. This does not mean that the pain is not there or real, but that surgery is not going to fix it. We did discuss the possibility of spinal cord stimulation, which can be a reasonable option for patients with pain who are not surgical candidates. He has not seen pain management previously, though has found injections not to be helpful. I did offer to refer him to [facility] for a second opinion for pain management and to discuss possibility of spinal cord stimulation. He will consider his options and will let us know if he would like a referral. [facility] 36on 11-29-2023 36 Patient called [facility] recently seen and would like to know if MRI completed at [facility] has been rec'd and reviewed. He can be reached at [phone] Thank you [facility] Telephoneon 11-29-2023 Telephone [id number] AmbroselewisBhavesh Carranza 1975 M Date Provider Department Center 11/29/2023 148-BRAYAN [facility] SURG [place] Family History Problem Relation Age of Onset Multiple sclerosis Father Prostate cancer Father Family Status - Relation Status Age at Father Normal [facility] Consulton 11-21-2023 Consult [id number] Bhavesh Cárdenas 1975 M Date Provider Department Center 11/21/2023 148-OVRAGHAV, [facility] SURG Second Fl Family History Problem Relation Age of Onset Multiple sclerosis Father Prostate cancer Father Family Status - Relation Status Age at Father Level of Service:36917 [place] OFFICE/OUTPATIENT NEW HIGH MDM 60 MINUTES Reason for Visit and Comments: Consult [484] - Bhavesh is here today for a consult for Lumbar spondylosis. 2nd opinion. Imaging requested from Chirag pierson [facility]. Normal [facility] Automated erythrocytes count in urine sediment (number/area)Ordered By: Kristina Delgado on 08-24-2023 RBC Auto (Urine sed) [#/Area] None seen [HPF] 0-4 [facility] Automated leukocytes count i n urine sediment (number/area)Ordered By: Kristina Delgado on 08-24-2023 WBC Auto (Urine sed) [#/Area] None seen [HPF] 0-4 [facility] Bilirubin Test strip Ql (U)O rdered By: Kristina Delgado on 08-24-2023 Bilirubin Ql (U) Negative Negative [facility] CT lumbar spine wo conon CT lumbar spine wo con [facility] [place] [address] [place] Scan Report Signed Patient: Bhavesh Cárdenas MR#: [id number] : 1975 Acct:[id number] Age/Sex: 47 / M ADM Date: 08/24/23 Loc: ER Room: Type: [facility] ER Attending Dr: Copies to: DU Cooper [...] Polina Cabrera M.D.08/24/2023 3:01 PM Dictation Location: [place] [address] Transcribed By: [facility] 08/24/23 1501 Dictated By: Polina Cabrera MD 08/24/23 2140 Signed By: 08/24/23 1501 Normal [facility] Color Auto (U)Ordered By: Ly Delgado on 08-24-2023 Color (U) Yellow Yellow [facility] Dipstick and Microscopicon 1 10-24-2022 Appearance (U) Cloudy Critically abnormal Clear [facility] Comment on above: Order Comment: Name Collection Type:: Clean-Voided Midstream Performed By: #### A DDONUAPLUS #### [facility] [address] [place] [address] [place] Bacteria,Urine None Seen Normal None Seen [facility] Comment on above: Order Comment: Name Collection Type:: Clean-Voided Midstream Performed By: #### A DDONUAPLUS #### [facility] [address] [place] [address] [place] Bilirubin,Urine Negative Normal Negative [facility] Comment on above: Order Comment: Name Collection Type:: Clean-Voided Midstream Performed By: #### A DDONUAPLUS #### [place] [address] [place] Color (U) Yellow Normal Yellow [facility] Comment on above: Order Comment: Name Collection Type:: Clean-Voided Midstream Performed By: #### A DDONUAPLUS #### [place] [address] [place] Glucose Ql (U) 100 mg/dL High Normal [facility] Comment on above: Order Comment: Name Collection Type:: Clean-Voided Midstream Performed By: #### A DDONUAPLUS #### [facility] [address] [place] [address] [place] Hyaline Casts,Urine None Seen Normal 0-8 [facility] Comment on above: Order Comment: Name Collection Type:: Clean-Voided Midstream Result Comment: PERF ORMED BY: [place] [address] PATHOLOGIST RETAIL CASHIER ASSOCIATE COLUMBA CHRISTY M.D. Performed By: #### A DDONUAPLUS #### [facility] [address] [place] [address] [place] Ketones Ql (U) Negative Normal Negative [facility] Comment on above: Order Comment: Name Collection Type:: Clean-Voided Midstream Performed By: #### A DDONUAPLUS #### [facility] [address] [place] [address] [place] Leukocyte esterase Test strip Ql (U) Negative Normal Negative [facility] Comment on above: Order Comment: Name Collection Type:: Clean-Voided Midstream Performed By: #### A DDONUAPLUS #### [facility] [address] [place] [address] [place] Nitrite,Urine Negative Normal Negative [facility] Comment on above: Order Comment: Name Collection Type:: Clean-Voided Midstream Performed By: #### A DDONUAPLUS #### [facility] [address] [place] [address] [place] Occult Blood,Urine Negative Normal Negative [facility] Comment on above: Order Comment: Name Collection Type:: Clean-Voided Midstream Result Comment: PERF ORMED BY: [place] [address] PATHOLOGIST RETAIL CASHIER ASSOCIATE COLUMBA CHRISTY M.D. Performed By: #### A DDONUAPLUS #### [facility] [address] [place] [address] pH (U) 6.0 [pH] Normal 5.0-9.0 [facility] Comment on above: Order Comment: Name Collection Type:: Clean-Voided Midstream Performed By: #### A DDONUAPLUS #### [facility] [address] [place] [address] [place] Protein,Urine Negative Normal Negative [facility] Comment on above: Order Comment: Name Collection Type:: Clean-Voided Midstream Performed By: #### A DDONUAPLUS #### [facility] [address] [place] [address] [place] RBC,Urine None Seen Normal 0-4 [facility] Comment on above: Order Comment: Name Collection Type:: Clean-Voided Midstream Performed By: #### A DDONUAPLUS #### [facility] [address] [place] [address] [place] Specificy [place],Urine 1.013 Normal 1.001-1.030 [facility] Comment on above: Order Comment: Name Collection Type:: Clean-Voided Midstream Performed By: #### A DDONUAPLUS #### [place] [address] [place] Squamous Epithelial Cell,Urine None Seen Normal 0-2 [facility] Comment on above: Order Comment: Name Collection Type:: Clean-Voided Midstream Performed By: #### A DDONUAPLUS #### [facility] [address] Urobilinogen,Urine Normal Normal Normal [facility] Comment on above: Order Comment: Name Collection Type:: Clean-Voided Midstream Performed By: #### A DDONUAPLUS #### [facility] [address] WBC,Urine None Seen Normal 0-4 [facility] Comment on above: Order Comment: Name Collection Type:: Clean-Voided Midstream Performed By: #### A DDONUAPLUS #### [facility] [address] Ketones Auto test strip (U) [Mass/Vol]Ordered By: Kristina Delgado on 08-24-2023 Ketones (U) [Mass/Vol] Negative Negative [facility] - UrinalysisOrder ed By: Kristina Delgado on 08-24-2023 Hyaline casts LM Ql (Urine sed) None seen [LPF] 0-8 [facility] Nitrite Test strip Ql (U)Ord ered By: Kristina Delgado on 08-24-2023 Nitrite Ql (U) Negative Negative [facility] Protein Auto test strip (U) [Mass/Vol]Ordered By: Kristina Delgado on 08-24-2023 Protein (U) [Mass/Vol] Negative Negative [facility] Specific gravity Auto test s trip (U) [Rel density]Ordered By: Kristina Delgado on 08-24-2023 Specific gravity (U) [Rel density] 1.013 1.001-1.030 [facility] Squamous epithelial cells de tection in urine sediment by light microscopyOrdered By: Kristina Delgado on 08-24-2023 Epithelial cells.squamous LM Ql (Urine sed) None seen [HPF] 0-2 [facility] Urine bacteria detection by automated methodOrdered By: Kristina Delgado on 08-24-2023 Bacteria Auto Ql (U) None seen None Seen [facility] Urine clarity by refractomet ry automatedOrdered By: Kristina Delgado on 08-24-2023 Clarity Refractometry automated (U) Cloudy Clear [facility] Urine glucose measurement by automated test strip (mass/volume)Ordered By: Kristina Delgado on 08-24-2023 Glucose Auto test strip (U) [Mass/Vol] 100 mg/dL Normal [facility] Urine hemoglobin detection b y automated test stripOrdered By: Kristina Delgado on 08-24-2023 Hemoglobin Auto test strip Ql (U) Negative Negative [facility] Urine leukocyte esterase det ection by automated test stripOrdered By: Kristina Delgado on 08-24-2023 Leukocyte esterase Auto test strip Ql (U) Negative Negative [facility] Urobilinogen Auto test strip (U) [Mass/Vol]Ordered By: Kristina Delgado on 08-24-2023 Urobilinogen (U) [Mass/Vol] Normal mg/dL Normal [facility] pH Auto test strip (U)Ordere d By: Kristina Delgado on 08-24-2023 pH (U) 6.0 [pH] 5.0-9.0 [facility] MR lumbar spine wo conon MR lumbar spine wo con [facility] [place] [address] MRI Report Signed Patient: Bhavesh Cárdenas MR#: [id number] : 1975 Acct:[id number] Age/Sex: 47 / M ADM Date: 06/21/23 Loc: Room: Type: [facility] Attending Dr: Tracy Wu 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 [employer] Copies to: KINJAL William Ordering Provider: KINJAL [...] Clayton Joe M.D.06/22/2023 1:14 PM Dictation Location: [place] [address] Transcribed By: [facility] 06/22/23 1314 Dictated By: Clayotn Joe II, MD 06/22/23 1304 Signed By: 06/22/23 1314 [facility] MR thoracic spine wo conon 0 05-16-2023 MR thoracic spine wo con [facility] [place] [address] MRI Report Signed Patient: Bhavesh Cárdenas MR#: [id number] : 1975 Acct:[id number] Age/Sex: 47 / M ADM Date: 05/16/23 Loc: Room: Type: [facility] Attending Dr: Tracy Wu 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 [employer] Copies to: KINJAL William Ordering Provider: KINJAL William Date of Service: 05/16/23 MR/MR cervical spine wo con: M47.896 ([id number]) MR/MR thoracic spine wo con: M47.896 CLINICAL [...] Polina Cabrera M.D.05/16/2023 9:00 PM Dictation Location: [facility] Transcribed By: PWS 05/16/232099 Dictated By: Polina Cabrera MD 05/16/232049 Signed By: 05/16/232099 [facility] Theodora 03-28-2023 CNPN Telephone (NEPREM) BHAVESH CÁRDENAS ([id number]) 1975 M Date Time Provider Department 03/28/23 KB LORENZO During your visit today, we recorded the following information about you: Lori Woody RN 03/28/2023 2:37 PM Signed Weight entered in [employer] Allergies As of Date: 03/28/2023 Noted Allergy Reaction NSAIDS (NON-STEROIDAL ANTI-INFLAM* 3 10 - Anaphylaxis 14 - Other: See Comments 12 - Shortness of Breath 7 - Swelling Date Reviewed: 01/24/2023 Reviewed by: Blank Moya RN - Fully Assessed Reason for Visit: Electronic Communication [310] Prescriptions as of 03/28/2023 - traZODone (DESYREL) [...] Encounter Status:Closed by LORNA A[facility]28/23 [facility] Telephone (NEPREM) BHAVESH CÁRDENAS ([id number]) 1975 M Date Time Provider Department 03/27/23 [facility] PROVIDER KIESHA During your visit today, we recorded the [...] Of Date: 03/27/2023 (None) Encounter Status:Closed by SHABNAMLIBERTYLORNA THORNE on 03/27/23 [facility] Theodora 02-19-2023 CNPN Telephone (NEPREM) BHAVESH CÁRDENAS ([id number]) 1975 M Date Time Provider Department 02/19/23 KB LORENZO During your visit today, we recorded the following information about you: Lorna Padillanicole 02/19/2023 11:51 AM Signed Patient phones stating his back cracked on and pain increased, he found harder to walk d/t pain. Patient also reports yesterday right leg was not moving and caused patient to fall, please advise. Lorna Padillanicole 02/21/2023 11:34 AM Signed Patient phones stating he is still in pain following his message from Sunday regarding increase in pain, requests phone call at [phone]. Lori Woody RN 02/21/2023 3:57 PM Addendum [...] Fully Assessed Reason for Visit: Patient Question [1477] Prescriptions as of 02/21/2023 - traZODone (DESYREL) [...] Encounter Status:Closed by LORNA ANAYA on 02/19/23 [facility] Theodora 02-09-2023 ALLEYN Telephone (NEPREM) BHAVESH CÁRDENAS ([id number]) 1975 M Date Time Provider Department 02/09/23 [...] Fully Assessed Reason for Visit: Patient Question [2149] Order(s):methylPREDNI Solone (MEDROL, GUSTABO,) 4 mg Dose-PackUse [...] Encounter Status:Closed by LORNA ANAYA on 02/09/23 [facility] XR lumbar spine min 4V*on XR lumbar spine min 4V* [facility] [place] [address] XRay Report Signed Patient: Bhavesh Cárdenas MR#: [id number] : 1975 Acct:[id number] Age/Sex: 47 / M ADM Date: 01/27/23 Loc: ER Room: Type: [facility] ER Attending Dr: Copies to: DU Cooper [...] Polina Cabrera M.D.01/27/2023 11:42 AM Dictation Location: [place] [address] Transcribed By: [facility] 01/27/23 1142 Dictated By: Polina Cabrera MD 01/27/23 1138 Signed By: 01/27/23 1142 [facility] HISTORY PHYSICALon HISTORY PHYSICAL HNO ID: [id number] Author: Kb Lorenzo DO Service: ? Author [...] January 24, 2023 TIME: 9:47 AM Normal [facility] NURSING PROGon 01-24-2023 NURSING PROG HNO ID: [id number] Author: Blank Moya RN Service: ? Author Type: Registered Nurse Type: Nursing Progress Note Filed: 01/29/2023 9:01 AM Note Text: Summary: Post-Procedure Call Post Procedure Follow Up Phone Call. No answer. The patient was instructed to call [phone] with the percentage of pain relief and what activities have improved. Blank Moya RN January 29, 2023 [facility] OPERATIVE NOon 01-24-2023 OPERATIVE NO HNO ID: [id number] Author: Kb Lorenzo DO Service: ? Author Type: Physician Type: Operative Report Filed: 01/24/2023 10:12 AM Note Text: LOG ID: [id number] Surgery/Procedure Date: 01/24/2023 Surgeon: Kb Lorenzo DO Sales Administration Manager: Washington Joya MD Procedure(s): Bilateral Sacroiliac Joint [...] when all discharge criterion met. SIGNATURE: Kb Lorezno DO PATIENT NAME: Bhavesh Cárdenas DATE: January 24, 2023 TIME: 10:11 AM Normal [facility] NURSING PROGon 01-22-2023 NURSING PROG HNO ID: [id number] Author: Frank Marrufo RN Service: Pain Management [...] 2 hours before the appointment. 2. A milk wagon driver must be present who can drive you home. If you are coming by medical transport, you must have a responsible person other than the transportation modeler with you. 3. If you take any [...] or cannot make the appointment by calling [phone] (Option 2). Normal [facility] Theodora 01-11-2023 CNPN Telephone (NPRC21) BHAVESH CÁRDENAS ([id number]) 1975 M Date Time Provider Department 01/11/23 LORI WOODY NPRC21 During your visit today, we recorded the following information about you: Lori Woody RN 01/11/2023 8:29 AM Signed Phoned and spoke with Bhavesh Cárdenas to confirm appointment for spine procedure on 01/24/23 with the arrival time of 845 for 930 am appointment. Patient verbalized understanding of the following: -Provided education on spine procedure and answered questions related to spine injection procedure. 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 INR<1.3 Taking aspirin 81mg: no Any open wounds/sores?: no Taking Antibiotics?: no Diabetic: no , notified that blood sugar will be taken at office and ok to take morning diabetes medication. Is this patient's first injection?: no, any complications: no Patient notified that Klonopin PO can be given prior to injection to help with anxiety. Patient verbalized understanding. Patient given number [phone], spine injections schedulers, if there is any [...] Status:Closed by LORI WOODY on 01/11/23 Normal [facility] CBC AUTO DIFFon 12-21-2022 BASO # 0.1 103/ul Normal 0.0-0.1 [facility] Comment on above: Performed By: #### C BC #### [facility] [address] [place] [address] [address] Oscar Ocampo Basophils/100 WBC (Bld) 0.6 % Normal 0.2-2.0 [facility] Comment on above: Performed By: #### C BC #### [facility] [address] [place] [address] [address] Oscar Ocampo EO # 0.2 103/ul Normal 0.0-0.7 [facility] Comment on above: Performed By: #### C BC #### [facility] [address] [place] [address] [address] Oscar Ocampo Eosinophils/100 WBC (Bld) 1.7 % Normal 0.9-7.0 [facility] Comment on above: Performed By: #### C BC #### [facility] [address] [place] [address] [address] Oscar Ocampo Erythrocyte distribution width (RBC) [Ratio] 12.2 % Normal 11.0-15.0 [facility] Comment on above: Performed By: #### C BC #### [facility] [address] [place] [address] [address] Oscar Ocampo Hematocrit (Bld) [Volume fraction] 44.4 % Normal 42.0-54.0 [facility] Comment on above: Performed By: #### C BC #### [facility] [address] [place] [address] [address] Oscar Ocampo Hemoglobin (Bld) [Mass/Vol] 14.9 g/dL Normal 14.0-18.0 [facility] Comment on above: Performed By: #### C BC #### [facility] [address] [place] [address] [address] Oscar Ocampo IG # 0.03 10e3/ul Normal 0.00-0.03 [facility] Comment on above: Performed By: #### C BC #### [facility] [address] [place] [address] Dr. Oscar Ocampo IG % 0.3 % Normal 0.0-0.5 [facility] Comment on above: Performed By: #### C BC #### [facility] [address] [place] [address] Dr. Oscar Ocampo LYMPH # 2.9 103/ul Normal 1.2-3.8 [facility] Comment on above: Performed By: #### C BC #### [facility] [address] [place] [address] Dr. Oscar Ocampo Lymphocytes/100 WBC (Bld) 32.6 % Normal 20.5-60.0 [facility] Comment on above: Performed By: #### C BC #### [facility] [address] [place] [address] Dr. Oscra Ocampo MANUAL DIFF REQ NO Normal [facility] Comment on above: Performed By: #### C BC #### [facility] [address] [place] [address] Dr. Oscar Ocampo MCH (RBC) [Entitic mass] 30.0 pg Normal 25.9-34.0 [facility] Comment on above: Performed By: #### C BC #### [facility] [address] [place] [address] Dr. Oscar Ocampo MCHC (RBC) [Mass/Vol] 33.6 g/dL Normal 29.9-35.2 [facility] Comment on above: Performed By: #### C BC #### [facility] [address] [place] [address] Dr. Oscar Ocampo MCV (RBC) [Entitic vol] 89.3 fL Normal 80.0-94.0 [facility] Comment on above: Performed By: #### C BC #### [facility] [address] [place] [address] Dr. Oscar Ocampo MONO # 0.8 103/ul Normal 0.3-0.8 [facility] Comment on above: Performed By: #### C BC #### [facility] [address] [place] [address] Dr. Oscar Ocampo Monocytes/100 WBC (Bld) 8.7 % Normal 1.7-12.0 [facility] Comment on above: Performed By: #### C BC #### [facility] [address] [place] [address] Dr. Oscar Ocampo NEUT # 5.1 103/ul Normal 1.4-6.5 [facility] Comment on above: Performed By: #### C BC #### [facility] [address] [place] [address] Dr. Oscar Ocampo Neutrophils/100 WBC (Bld) 56.1 % Normal 43.0-75.0 [facility] Comment on above: Performed By: #### C BC #### [facility] [address] [place] [address] Dr. Oscar Ocampo Platelet mean volume (Bld) [Entitic vol] 10.5 fL Normal 9.5-13.5 [facility] Comment on above: Performed By: #### C BC #### [facility] [address] [place] [address] Dr. Oscar Ocampo PLT 311 103/ul Normal 150-450 [facility] Comment on above: Performed By: #### C BC #### [facility] [address] [place] [address] Dr. Oscar Ocampo RBC 4.97 106/ul Normal 4.70-6.10 [facility] Comment on above: Performed By: #### C BC #### [facility] [address] [place] [address] Dr. Oscar Ocampo WBC 9.0 103/ul Normal 4.0-11.0 [facility] Comment on above: Performed By: #### C BC #### [facility] [address] [place] [address] Dr. Oscar Ocampo GLYCOHEMOGLOBIN A1Con 2022 ADA RECOMMENDATION SEE BELOW Normal [facility] Comment on above: Result Comment: ADA RECOMMENDED LIMIT 4.0 - 6.0 ADA THERAPEUTIC TARGET < 7.0 ACTION SUGGESTED > 7.0 Performed By: #### A 1C #### [facility] [address] [place] [address] [address] Oscar Ocampo Glucose [Mass/Vol] 289 mg/dL Normal [facility] Comment on above: Performed By: #### A 1C #### [facility] [address] [place] [address] [address] Oscar Ocampo HbA1c (Bld) [Mass fraction] 11.7 % Critically high 4.5-6.2 [facility] Comment on above: Performed By: #### A 1C #### [facility] [address] [place] [address] Dr. Oscar Ocampo LIPID PROFILEon 12-21-2022 CHOL-HDL RATIO NORM SEE BELOW Normal [facility] Comment on above: Result Comment: 3.3 - 4.4 LOW RISK 4.4 - 7.1 AVERAGE RISK 7.1 - 11.0 MODERATE RISK >11.0 HIGH RISK Performed By: #### L IPID, BMP #### [facility] [address] [place] [address] Dr. Oscar Ocampo Cholesterol [Mass/Vol] 217 mg/dL Critically high <=200 [facility] Comment on above: Performed By: #### L IPID, BMP #### [facility] [address] [place] [address] Dr. Oscar Ocampo Cholesterol in HDL [Mass/Vol] 40 mg/dL Normal 40-60 [facility] Comment on above: Performed By: #### L IPID, BMP #### [facility] [address] [place] [address] Dr. Oscar Ocampo Cholesterol in LDL [Mass/Vol] 133.4 mg/dL Normal [facility] Comment on above: Performed By: #### L IPID, BMP #### [facility] [address] [place] [address] Dr. Oscar Ocampo Cholesterol.total/Ch olesterol in HDL [Mass ratio] 5.4 {ratio} Normal [facility] Comment on above: Performed By: #### L IPID, BMP #### [facility] [address] [place] [address] Dr. Oscar Ocampo HDL NORMAL > or = 60 mg/dl - LO W CARDIOVASCULAR RISK <40 mg/dl - HIGH CARDIOVASCULAR RISK Normal [facility] Comment on above: Performed By: #### L IPID, BMP #### [facility] [address] [place] [address] [address] Oscar Ocampo LDL CALC NORMAL SEE BELOW Normal [facility] Comment on above: Result Comment: <100 mg/dl OPTIMAL 100 - 129 mg/dl NEAR OR ABOVE OPTIMAL 130 - 159 mg/dl BORDERLINE HIGH 160 - 189 mg/dl HIGH >190 mg/dl VERY HIGH Performed By: #### L IPID, BMP #### [facility] [address] [place] [address] [address] Oscar Ocampo Triglyceride [Mass/Vol] 218 mg/dL Critically high <=150 [facility] Comment on above: Performed By: #### L IPID, BMP #### [facility] [address] [place] [address] [address] Oscar Ocampo VLDL CALC 43.6 mg/dL Normal [facility] Comment on above: Performed By: #### L IPID, BMP #### [facility] [address] [place] [address] [address] Oscar Ocampo PROF CHEM 8 (BAS METB)on Anion gap [Moles/Vol] 12.6 mmol/L Normal [facility] Comment on above: Performed By: #### L IPID, BMP #### [facility] [address] [place] [address] [address] Oscar Ocampo Calcium [Mass/Vol] 9.6 mg/dL Normal 8.5-10.1 [facility] Comment on above: Performed By: #### L IPID, BMP #### [facility] [address] [address] [address] Oscar Ocampo Chloride [Moles/Vol] 100 mmol/L Normal 98-107 [facility] Comment on above: Performed By: #### L IPID, BMP #### [facility] [address] [address] [address] Oscar Ocampo CO2 [Moles/Vol] 28.6 mmol/L Normal 21.0-32.0 [facility] Comment on above: Performed By: #### L IPID, BMP #### [facility] [address] [place] [address] Dr. Oscar Ocampo Creatinine [Mass/Vol] 0.84 mg/dL Normal 0.70-1.30 [facility] Comment on above: Performed By: #### L IPID, BMP #### [facility] [address] [place] [address] Dr. Oscar Ocampo EGFR-AF TAJIK >60 Normal >=60 [facility] Comment on above: Performed By: #### L IPID, BMP #### [facility] [address] [place] [address] Dr. Oscar Ocampo EGFR-NON AF TAJIK >60 Normal >=60 [facility] Comment on above: Performed By: #### L IPID, BMP #### [facility] [address] [place] [address] Dr. Oscar Ocampo Glucose [Mass/Vol] 197 mg/dL Critically high 74-106 [facility] Comment on above: Performed By: #### L IPID, BMP #### [facility] [address] [place] [address] Dr. Oscar Ocampo Potassium [Moles/Vol] 4.2 mmol/L Normal 3.5-5.1 [facility] Comment on above: Performed By: #### L IPID, BMP #### [facility] [address] [place] [address] Dr. Oscar Ocampo Sodium [Moles/Vol] 137 mmol/L Normal 136-145 [facility] Comment on above: Performed By: #### L IPID, BMP #### [facility] [address] [place] [address] Dr. Oscar Ocampo Urea nitrogen [Mass/Vol] 14.0 mg/dL Normal 7.0-18.0 [facility] Comment on above: Performed By: #### L IPID, BMP #### [facility] [address] [place] [address] Dr. Oscar Ocampo Urea nitrogen/Creatinine [Mass ratio] 16.7 mg/mg Normal [facility] Comment on above: Performed By: #### L IPID, BMP #### [facility] [address] [place] [address] Dr. Oscar Yip 12-15-2022 CNPN Telephone (NPRC21) BHAVESH CÁRDENAS ([id number]) 1975 M Date Time Provider Department 12/15/22 LORI WOODY NPRC21 During your visit today, we recorded [...] Encounter Status:Closed by LORI WOODY on 12/15/22 Normal [facility] CNOVon 11-24-2022 CNOV Office Visit (SPNMMN ) MELIABHAVESH ([id number]) 1975 M Date Time Provider Department 11/24/22 10:00 AM SPINE MED PROCEDURE MAIN SPNMMN During your visit today, we recorded the following information about you: Temperature Pulse Respiration Blood pressure 98.2 degrees 89/minute 18/minute 140/94 Patricia Hylton 12/26/2022 10:12 AM Signed cancelled Gillian Vega RN 11/24/2022 10:54 AM Signed PATIENT NAME: Bhavesh Carranza Melia 1975 47 year old Current medications and allergies reviewed with patient in visit navigator: Yes Baseline vital signs and pain assessment entered in activity in visit navigator: Yes Assistant Professor Of English 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 Menstrual Date: NA Undergone Injection in the past: Yes, [facility] [place] Time since last PO intake: this am [...] All in agreement. Referring Provider: KB LORENZO [[id number]] Allergies As of Date: 11/24/2022 Noted Allergy Reaction NSAIDS (NON-STEROIDAL ANTI-INFLAM* 3 10 - Anaphylaxis 14 - Other: See Comments 12 - Shortness of Breath 7 - Swelling Date Reviewed: 11/24/2022 Reviewed by: Gillian Vega RN - Fully Assessed Primary Visit Diagnosis:APPOINTMENT CANCELLED Order(s):GLUCOSE, BLOOD (POC) [[id number]] Order #: [id number]. 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 Menstrual Date: NA Undergone Injection in the past: Yes, [facility] [place] Time since last PO intake: this [...] Status:Closed by PATRICIA VIGIL on 12/26/22 Normal [facility] GLUCOSE, BLOOD (POC)on 11-24 Glucose [Mass/Vol] 430 mg/dL Abnormal 74 - 99 mg/dL [facility] CNPNon 11-16-2022 CNPN Telephone (SPMAMN) BHAVESH CÁRDENAS ([id number]) 1975 M Date Time Provider Department 11/16/22 KB LORENZO [facility] During your visit today, we recorded the following information about you: Washington Ly LPN 11/16/2022 1:00 PM Signed Tried to reach patient via telephone for pre-procedure guidelines regarding spine injection with Dr. Lorenzo on 11/24/2022, patient unable to talk on phone at this time. Voicemail box is full and cannot accept messages at this time.. [employer] message sent with pre-procedure guidelines for injection. [...] Encounter Status:Closed by WASHINGTON LY on 11/16/22 [facility] CNOVon 11-15-2022 CNOV Office Visit (NPRC21 ) BHAVESH CÁRDENAS ([id number]) 1975 M Date Time Provider Department 11/15/22 2:00 PM KB LORENZO NPRC21 During your visit today, we recorded the following information about you: Pulse Respiration Blood pressure 90/minute 18/minute 121/87 Kb Lorenzo DO 12/09/2022 11:53 AM Signed [facility] [place] November 15, 2022 This is a in-person visit. 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 He was referred by Olayinka Boyd [id number] [address] [facility] [id number]. Chief complaint: Center of back pain that [...] doctor and was seen by rheumatology. 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 He started physical therapy In 2020 the patient was sent to a L5-S1 for radiofrequency ablation that were not helpful. The diagnostic blocks was done as well. This was done at [facility]. The patient tried to tolerate [...] patient was seen by neurosurgery here at [facility] and not deemed an appropriate surgical candidate. [...] due to anaphylaxis. Spine Red Flag Bhavesh Cárdenas endorses red flag symptoms of Bowel or bladder dysfunction Anesthesia: Denies Schizophrenia: Denies : Denies CHF: Denies Uncontrolled HTN: Denies Recent MS: Denies Arrythmias: Denies Afib: Denies Hyperthyroid: Denies [...] and extrem (more content not included)... Normal [facility] MIKAYLA BY IFA WITH REFLEXon Nuclear Ab IF (S) [Titer] Negative Normal Negative [facility] Comment on above: Order Comment: Speci men Type: BLOOD SPECIMENOrdering Facility: [facility] Address: [address] [place] [address] Result Comment: Anti -nuclear antibody test is used as an aid in diagnosis of systemic autoimmune diseases. Where positive and clinically warranted, follow-up using disease-specific testing is recommended. Low positive titers are not uncommon with advanced age, certain chronic infections, and malignancies among others. Test methodology: Indirect fluorescence immunoassay (IFA) using HEp-2 cells. Performed By: #### A NAIFR ####[facility] LABCLIA [id number] [place] [address] [place] C-REACTIVE PROTEIN (CRP)on 0 10-30-2022 CRP [Mass/Vol] <0.9 mg/dL [facility] CBC W Auto Differential pane l (Bld)on 10-30-2022 Basophils (Bld) [#/Vol] 0.07 10*3/uL Normal <0.11 [facility] Comment on above: Order Comment: Speci men Type: BLOOD SPECIMENOrdering Facility: [facility] Address: [address] Performed By: #### 5 7021-8, 7 ####[facility] LABCLIA [id number] [place] [address] [place] Basophils/100 WBC (Bld) 0.8 % Normal [facility] Comment on above: Order Comment: Speci men Type: BLOOD SPECIMENOrdering Facility: [facility] Address: [address] Performed By: #### 5 7021-8, 4537-04 ####[facility] LABCLIA [id number] [place] [address] [place] Differential cell count method Nom (Bld) Auto Normal [facility] Comment on above: Order Comment: Speci men Type: BLOOD SPECIMENOrdering Facility: [facility] Address: [address] [place], [place] [address] Performed By: #### 5 7021-8, 7 ####[facility] LABCLIA [id number] [place] [address] [place] Eosinophils (Bld) [#/Vol] 0.17 10*3/uL Normal <0.46 [facility] Comment on above: Order Comment: Speci men Type: BLOOD SPECIMENOrdering Facility: [facility] Address: [address] [place], [place] [address] Performed By: #### 5 7021-8, 7 ####[facility] LABCLIA [id number] [place] [address] [place] Eosinophils/100 WBC (Bld) 1.9 % Normal [facility] Comment on above: Order Comment: Speci men Type: BLOOD SPECIMENOrdering Facility: [facility] Address: [address] Performed By: #### 5 7021-8, 4536- ####[facility] LABCLIA [id number] [place] [address] [place] Erythrocyte distribution width (RBC) [Ratio] 11.8 % Normal 11.5-15.0 [facility] Comment on above: Order Comment: Speci men Type: BLOOD SPECIMENOrdering Facility: [facility] Address: [address] [place] [address] Performed By: #### 5 7021-8, 4537-7 ####[facility] LABCLIA [id number] [place] [address] [place] Hematocrit (Bld) [Volume fraction] 45.8 % Normal 39.0-51.0 [facility] Comment on above: Order Comment: Speci men Type: BLOOD SPECIMENOrdering Facility: [facility] Address: [address] [place] [address] Performed By: #### 5 7021-8, 453-7 ####[facility] LABCLIA [id number] [place] [address] [place] Hemoglobin (Bld) [Mass/Vol] 15.7 g/dL Normal 13.0-17.0 [facility] Comment on above: Order Comment: Speci men Type: BLOOD SPECIMENOrdering Facility: [facility] Address: [address] [place] [address] Performed By: #### 5 7021-8, 4537-7 ####[facility] LABCLIA [id number] [place] [address] [place] Immature granulocytes (Bld) [#/Vol] 0.06 10*3/uL Normal <0.10 [facility] Comment on above: Order Comment: Speci men Type: BLOOD SPECIMENOrdering Facility: [facility] Address: [address] [place], [place] [address] Performed By: #### 5 7021-8, 7-7 ####[facility] LABCLIA [id number] [place] [address] [place] Immature granulocytes/100 WBC (Bld) 0.7 % Normal [facility] Comment on above: Order Comment: Speci men Type: BLOOD SPECIMENOrdering Facility: [facility] Address: [address] [place] [address] Performed By: #### 5 7021-8, 4536-7 ####[facility] LABCLIA [id number] [place] [address] [place] Lymphocytes (Bld) [#/Vol] 2.56 10*3/uL Normal 1.00-4.00 [facility] Comment on above: Order Comment: Speci men Type: BLOOD SPECIMENOrdering Facility: [facility] Address: [address] [place], [place] [address] Performed By: #### 5 7021-8, 7 ####[facility] LABCLIA [id number] [address] [place] Lymphocytes/100 WBC (Bld) 27.9 % Normal [facility] Comment on above: Order Comment: Speci men Type: BLOOD SPECIMENOrdering Facility: [facility] Address: [address] [place], [place] [address] Performed By: #### 5 7021-8, 7 ####[facility] LABCLIA [id number] [place] [address] [place] MCH (RBC) [Entitic mass] 30.3 pg Normal 26.0-34.0 [facility] Comment on above: Order Comment: Speci men Type: BLOOD SPECIMENOrdering Facility: [facility] Address: [address] [place], [place] [address] Performed By: #### 5 7021-8, 7 ####[facility] LABCLIA [id number] [place] [address] [place] MCHC (RBC) [Mass/Vol] 34.3 g/dL Normal 30.5-36.0 [facility] Comment on above: Order Comment: Speci men Type: BLOOD SPECIMENOrdering Facility: [facility] Address: [address] Performed By: #### 5 7021-8, 7 ####[facility] LABCLIA [id number] [place] [address] [place] MCV (RBC) [Entitic vol] 88.4 fL Normal 80.0-100.0 [facility] Comment on above: Order Comment: Speci men Type: BLOOD SPECIMENOrdering Facility: [facility] Address: [address] [place], [place] [address] Performed By: #### 5 7021-8, 7 ####[facility] LABCLIA [id number] [place] [address] [place] Monocytes (Bld) [#/Vol] 0.70 10*3/uL Normal <0.87 [facility] Comment on above: Order Comment: Speci men Type: BLOOD SPECIMENOrdering Facility: [facility] Address: [address] [place], [place] [address] Performed By: #### 5 7021-8, 7 ####[facility] LABCLIA [id number] [place] [address] [place] Monocytes/100 WBC (Bld) 7.6 % Normal [facility] Comment on above: Order Comment: Speci men Type: BLOOD SPECIMENOrdering Facility: [facility] Address: [address] Performed By: #### 5 7021-8, 4536-7 ####[facility] LABCLIA [id number] [place] [address] [place] Neutrophils (Bld) [#/Vol] 5.62 10*3/uL Normal 1.45-7.50 [facility] Comment on above: Order Comment: Speci men Type: BLOOD SPECIMENOrdering Facility: [facility] Address: [address] [place] [address] Performed By: #### 5 7021-8, 4536-7 ####[facility] LABIA [id number] [address] STATES [facility] Neutrophils/100 WBC (Bld) 61.1 % Normal [facility] Comment on above: Order Comment: Speci men Type: BLOOD SPECIMENOrdering Facility: [facility] Address: [address] Performed By: #### 5 7021-8, 7 ####[facility] LABIA [id number] [place] [address] [place] Nucleated RBC (Bld) [#/Vol] 10*3/uL Normal <0.01 [facility] Comment on above: Order Comment: Speci men Type: BLOOD SPECIMENOrdering Facility: [facility] Address: [address] Performed By: #### 5 7021-8, 7 ####[facility] LABIA [id number] [place] [address] [place] Nucleated RBC/100 WBC (Bld) [Ratio] 0.0 /100 WBC Normal [facility] Comment on above: Order Comment: Speci men Type: BLOOD SPECIMENOrdering Facility: [facility] Address: [address] [place] [address] Performed By: #### 5 7021-8, 7 ####[facility] LABIA [id number] [place] [address] [place] Platelet mean volume (Bld) [Entitic vol] 11.5 fL Normal 9.0-12.7 [facility] Comment on above: Order Comment: Speci men Type: BLOOD SPECIMENOrdering Facility: [facility] Address: [address] Performed By: #### 5 7021-8, 4536-7 ####[facility] LABCLIA [id number] [place] [address] [place] Platelets (Bld) [#/Vol] 348 10*3/uL Normal 150-400 [facility] Comment on above: Order Comment: Speci men Type: BLOOD SPECIMENOrdering Facility: [facility] Address: [address] [place] [address] Performed By: #### 5 7021-8, 4537-7 ####[facility] LABIA [id number] [place] [address] [place] RBC (Bld) [#/Vol] 5.18 10*6/uL Normal 4.20-6.00 [facility] Comment on above: Order Comment: Speci men Type: BLOOD SPECIMENOrdering Facility: [facility] Address: [address] [place] [address] Performed By: #### 5 7021-8, 4537-7 ####[facility] LABIA [id number] [place] [address] [place] WBC (Bld) [#/Vol] 9.18 10*3/uL Normal 3.70-11.00 [facility] Comment on above: Order Comment: Speci men Type: BLOOD SPECIMENOrdering Facility: [facility] Address: [address] [place] [address] Performed By: #### 5 7021-8, 4537-7 ####[facility] LABIA [id number] [place] [address] [place] Basophils (Bld) [#/Vol] 0.07 10*3/uL <0.11 k/uL [facility] Basophils/100 WBC (Bld) 0.8 % [facility] Differential cell count method Nom (Bld) Auto [facility] Eosinophils (Bld) [#/Vol] 0.17 10*3/uL <0.46 k/uL [facility] Eosinophils/100 WBC (Bld) 1.9 % [facility] Erythrocyte distribution width (RBC) [Ratio] 11.8 % 11.5 - 15.0 % [facility] Hematocrit (Bld) [Volume fraction] 45.8 % 39.0 - 51.0 % [facility] Hemoglobin (Bld) [Mass/Vol] 15.7 g/dL 13.0 - 17.0 g/dL [facility] Immature granulocytes (Bld) [#/Vol] 0.06 10*3/uL <0.10 k/uL [facility] Immature granulocytes/100 WBC (Bld) 0.7 % [facility] Lymphocytes (Bld) [#/Vol] 2.56 10*3/uL 1.00 - 4.00 k/uL [facility] Lymphocytes/100 WBC (Bld) 27.9 % [facility] MCH (RBC) [Entitic mass] 30.3 pg 26.0 - 34.0 pg [facility] MCHC (RBC) [Mass/Vol] 34.3 g/dL 30.5 - 36.0 g/dL [facility] MCV (RBC) [Entitic vol] 88.4 fL 80.0 - 100.0 fL [facility] Monocytes (Bld) [#/Vol] 0.70 10*3/uL <0.87 k/uL [facility] Monocytes/100 WBC (Bld) 7.6 % [facility] Neutrophils (Bld) [#/Vol] 5.62 10*3/uL 1.45 - 7.50 k/uL [facility] Neutrophils/100 WBC (Bld) 61.1 % [facility] Nucleated RBC (Bld) [#/Vol] <0.01 k/uL [facility] Nucleated RBC/100 WBC (Bld) [Ratio] 0.0 /100 WBC [facility] Platelet mean volume (Bld) [Entitic vol] 11.5 fL 9.0 - 12.7 fL [facility] Platelets (Bld) [#/Vol] 348 10*3/uL 150 - 400 k/uL [facility] RBC (Bld) [#/Vol] 5.18 10*6/uL 4.20 - 6.0 0 m/uL [facility] WBC (Bld) [#/Vol] 9.18 10*3/uL 3.70 - 11. 00 k/uL [facility] CNOVon 10-30-2022 CNOV Office Visit (RHARMN ) BHAVESH CÁRDENAS ([id number]) 1975 M Date Time Provider Department 10/30/22 9:00 AM SANTANA HARRIS During your visit today, we recorded the following information about you: Temperature Pulse Blood pressure 95.6 degrees 68/minute 144/96 Santana Harris MD 10/30/2022 10:20 AM Signed ref: Shaikh Moi [address] [place] [address] I have been asked to see Bhavseh Carranza Ambroselewis for Osteoarthritis by Shaikh Moi [address] [facility] [address] HPI: Back pain for most of his lef. On the right side, just above the buttocks. The past six months it is painful picking up 24 pack of water. Leg drags on R a couple of times. Has fallen a couple of times. [place] like it lost control while walking. 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 Hands swell. Has pain worse first [...] well nourishe (more content not included)... Normal [facility] CRP SerPl-mCncon 10-30-2022 CRP [Mass/Vol] mg/L Normal <0.9 [facility] Comment on above: Order Comment: Speci men Type: BLOOD SPECIMENOrdering Facility: [facility] Address: [address] [place] [address] Performed By: #### 1 988-5, 66705-5, 42003-3 ####[facility] LABCLIA [id number] [address] [place] Comprehensive metabolic 2000 panelon 10-30-2022 Albumin [Mass/Vol] 4.5 g/dL 3.9 - 4.9 g/dL [facility] ALP [Catalytic activity/Vol] 115 U/L High 38 - 113 U/L [facility] ALT [Catalytic activity/Vol] 19 U/L 10 - 54 U/L [facility] Anion gap [Moles/Vol] 14 mmol/L 9 - 18 mmol/L [facility] AST [Catalytic activity/Vol] 15 U/L 14 - 40 U/L [facility] Bilirubin [Mass/Vol] 0.5 mg/dL 0.2 - 1 .3 mg/dL [facility] Calcium [Mass/Vol] 9.5 mg/dL 8.5 - 10. 2 mg/dL [facility] Chloride [Moles/Vol] 94 mmol/L Low 97 - 10 5 mmol/L [facility] CO2 [Moles/Vol] 25 mmol/L 22 - 30 mmol/L [facility] Creatinine [Mass/Vol] 0.72 mg/dL Low 0.73 - 1.22 mg/dL [facility] Estimated Glomerular Filtration Rate 113 mL/min/1.73m >=60 mL/min/1.73m [facility] Glucose [Mass/Vol] 372 mg/dL High 74 - 99 mg/dL [facility] Potassium [Moles/Vol] 4.5 mmol/L 3.7 - 5.1 mmol/L [facility] Protein [Mass/Vol] 7.5 g/dL 6.3 - 8.0 g/dL [facility] Sodium [Moles/Vol] 133 mmol/L Low 136 - 144 mmol/L [facility] Urea nitrogen [Mass/Vol] 15 mg/dL 9 - 24 mg/dL [facility] Albumin [Mass/Vol] 4.5 g/dL Normal 3.9-4.9 [facility] Comment on above: Order Comment: Speci men Type: BLOOD SPECIMENOrdering Facility: [facility] Address: [address] [place] [address] Performed By: #### 1 988-5, 83348-7, 16581-5 ####[facility] [id number] [place] [address] [place] ALP [Catalytic activity/Vol] 115 U/L High 38-113 [facility] Comment on above: Order Comment: Speci men Type: BLOOD SPECIMENOrdering Facility: [facility] Address: [address] [place] [address] Performed By: #### 1 988-5, 16413-9, 73796-6 ####[facility] LABIA [id number] [address] [place] ALT [Catalytic activity/Vol] 19 U/L Normal 10-54 [facility] Comment on above: Order Comment: Speci men Type: BLOOD SPECIMENOrdering Facility: [facility] Address: [address] [place] [address] Performed By: #### 1 988-5, 82949-3, 51420-9 ####[facility] LABCLIA [id number] [place] [address] [place] Anion gap [Moles/Vol] 14 mmol/L Normal 9-18 [facility] Comment on above: Order Comment: Speci men Type: BLOOD SPECIMENOrdering Facility: [facility] Address: [address] Performed By: #### 1 988-5, , ####[facility] LABCLIA [id number] [place] [address] [place] AST [Catalytic activity/Vol] 15 U/L Normal 14-40 [facility] Comment on above: Order Comment: Speci men Type: BLOOD SPECIMENOrdering Facility: [facility] Address: [address] [place], [place] [address] Performed By: #### 1 988-5, , ####[facility] LABCLIA [id number] [place] [address] [place] Bilirubin [Mass/Vol] 0.5 mg/dL Normal 0.2-1.3 [facility] Comment on above: Order Comment: Speci men Type: BLOOD SPECIMENOrdering Facility: [facility] Address: [address] [place], [place] [address] Performed By: #### 1 988-5, , ####[facility] LABCLIA [id number] [place] [address] [place] Calcium [Mass/Vol] 9.5 mg/dL Normal 8.5-10.2 [facility] Comment on above: Order Comment: Speci men Type: BLOOD SPECIMENOrdering Facility: [facility] Address: [address] [place], [place] [address] Performed By: #### 1 988-5, 01590-9, 27011-1 ####[facility] LABCLIA [id number] [place] [address] [place] Chloride [Moles/Vol] 94 mmol/L Low 97-105 [facility] Comment on above: Order Comment: Speci men Type: BLOOD SPECIMENOrdering Facility: [facility] Address: [address] [place] [address] Performed By: #### 1 988-5, 33806-2, 76924-4 ####[facility] LABIA [id number] [place] [address] [place] CO2 [Moles/Vol] 25 mmol/L Normal 22-30 [facility] Comment on above: Order Comment: Speci men Type: BLOOD SPECIMENOrdering Facility: [facility] Address: [address] [place] [address] Performed By: #### 1 988-5, 22787-7, 89792-3 ####[facility] [id number] [place] [address] [place] Creatinine [Mass/Vol] 0.72 mg/dL Low 0.73-1.22 [facility] Comment on above: Order Comment: Speci men Type: BLOOD SPECIMENOrdering Facility: [facility] Address: [address] [place] [address] Performed By: #### 1 988-5, 89670-3, 35146-9 ####[facility] [id number] [address] [place] ESTIMATED GLOMERULAR FILTRATION RATE 113 mL/min/1.73m??? Normal >=60 [facility] Comment on above: Order Comment: Speci men Type: BLOOD SPECIMENOrdering Facility: [facility] Address: [address] [place] [address] Result Comment: [place]ola mated Glomerular Filtration Rate [...] actual GFR. Performed By: #### 1 988-5, 81177-3, ####[facility] LABCLIA [id number] [address] [address] [place] Glucose [Mass/Vol] 372 mg/dL High 74-99 [facility] Comment on above: Order Comment: Marina ernst Type: BLOOD SPECIMENOrdering Facility: [facility] Address: [address] [place] [id number] Result Comment: The [place] [employer] (ADA) provides guidance for cutoff [...] Standards of Medical Care in Diabetes 2016, [place] [employer]. Diabetes Care. 2016.39(Suppl 1). Performed By: #### 1 988-5, , ####[facility] LABCLIA [id number] [address] [address] [place] Potassium [Moles/Vol] 4.5 mmol/L Normal 3.7-5.1 [facility] Comment on above: Order Comment: Marina ernst Type: BLOOD SPECIMENOrdering Facility: [facility] Address: [address] [place] [address] Performed By: #### 1 988-5, , ####[facility] LABCLIA [id number] [address] [address] [place] Protein [Mass/Vol] 7.5 g/dL Normal 6.3-8.0 [facility] Comment on above: Order Comment: Speci men Type: BLOOD SPECIMENOrdering Facility: [facility] Address: [address] [place] [address] Performed By: #### 1 988-5, 09948-9, 05986-3 ####[facility] LABCLIA [id number] [place] [address] [place] Sodium [Moles/Vol] 133 mmol/L Low 136-144 [facility] Comment on above: Order Comment: Speci men Type: BLOOD SPECIMENOrdering Facility: [facility] Address: [address] [place] [address] Performed By: #### 1 988-5, 48164-5, 40401-1 ####[facility] LABCLIA [id number] [place] [address] [place] Urea nitrogen [Mass/Vol] 15 mg/dL Normal 9-24 [facility] Comment on above: Order Comment: Speci men Type: BLOOD SPECIMENOrdering Facility: [facility] Address: [address] [place] [address] Performed By: #### 1 988-5, 81439-7, 98042-6 ####[facility] LABIA [id number] [place] [address] [place] Cyclic citrullinated peptide IgG Qnon 10-30-2022 CCP ANTIBODY IGG QUALITATIVE Negative Normal Negative [facility] Comment on above: Order Comment: Speci men Type: BLOOD SPECIMENOrdering Facility: [facility] Address: [address] [place] [address] Performed By: #### 3 3935-8 ####[facility] LABCLIA [id number] [place] [address] [place] ESR Westergren method (Bld) [Velocity]on 10-30-2022 ESR (Bld) [Velocity] 8 mm/h Normal 0-15 [facility] Comment on above: Order Comment: Speci men Type: BLOOD SPECIMENOrdering Facility: [facility] Address: [address] [place] [address] Performed By: #### 5 7021-8, 4537-7 ####[facility] LABCLIA [id number] [address] [place] No Panel Informationon 10-30 [facility] RHEUMATOID FACTOR BLon 10-30 Rheumatoid factor Qn <16 IU/mL [facility] Rheumatoid fact SerPl-aCncon 10-30-2022 Rheumatoid factor Qn [IU]/mL Normal <16 [facility] Comment on above: Order Comment: Speci men Type: BLOOD SPECIMENOrdering Facility: [facility] Address: [address] [place] [address] Performed By: #### 1 988-5, 60501-7, 05515-9 ####[facility] LABCLIA [id number] [address] [place] Urinalysis complete panel (U )on 10-30-2022 Bilirubin Ql (U) Negative Negative [facility] Clarity (Unsp spec) Clear Clear [facility] Color (U) Light Yellow Yellow [facility] Epithelial cells LM.HPF (Urine sed) [#/Area] Few [facility] Glucose Test strip (U) [Mass/Vol] 4+ Abnormal Trace, Negative [facility] Hemoglobin Ql (U) Negative Negative, Trace [facility] Ketones Ql (U) 1+ Abnormal Trace, Negative [facility] Leukocyte esterase Test strip Ql (U) Negative Negative, 25 Onesimo/mL [facility] Nitrite Ql (U) Negative Negative [facility] pH (U) 5.5 [pH] 5.0 - 8.0 [facility] Protein (U) [Mass/Vol] Trace Trace, Negative [facility] RBC LM.HPF (Urine sed) [#/Area] 0-3 /HPF 0-3 /HPF [facility] Specific gravity (U) [Rel density] 1.041 High 1.005 - 1.030 [facility] Urobilinogen Ql (U) Negative Negative [facility] WBC LM.HPF (Urine sed) [#/Area] 0-5 /HPF 0-5 /HPF [facility] Bilirubin Ql (U) Negative Normal Negative [facility] Comment on above: Order Comment: Speci men Type: URINE SPECIMENOrdering Facility: [facility] Address: [address] [place] [address] Performed By: #### 2 4356-8 ####[facility] LABCLIA [id number] [place] [address] [place] Clarity (Unsp spec) Clear Normal Clear [facility] Comment on above: Order Comment: Speci men Type: URINE SPECIMENOrdering Facility: [facility] Address: [address] [place] [address] Performed By: #### 2 4356-8 ####[facility] LABCLIA [id number] [place] [address] [place] Color (U) Light Yellow Normal Yellow [facility] Comment on above: Order Comment: Speci men Type: URINE SPECIMENOrdering Facility: [facility] Address: [address] [place] [address] Performed By: #### 2 4356-8 ####[facility] LABCLIA [id number] [place] [address] [place] Epithelial cells LM.HPF (Urine sed) [#/Area] Few Normal [facility] Comment on above: Order Comment: Speci men Type: URINE SPECIMENOrdering Facility: [facility] Address: [address] [place], [place] [id number] Performed By: #### 2 4356-8 ####[facility] LABCLIA [id number] [place] [address] [place] Glucose Test strip (U) [Mass/Vol] 4+ Abnormal Trace, Negative [facility] Comment on above: Order Comment: Speci men Type: URINE SPECIMENOrdering Facility: [facility] Address: [address] Performed By: #### 2 4356-8 ####[facility] LABCLIA [id number] [place] [address] [place] Hemoglobin Ql (U) Negative Normal Negative, Trace [facility] Comment on above: Order Comment: Speci men Type: URINE SPECIMENOrdering Facility: [facility] Address: [address] [place] [address] Performed By: #### 2 4356-8 ####[facility] LABCLIA [id number] [place] [address] [place] Ketones Ql (U) 1+ Abnormal Trace, Negative [facility] Comment on above: Order Comment: Speci men Type: URINE SPECIMENOrdering Facility: [facility] Address: [address] [place] [address] Performed By: #### 2 4356-8 ####[facility] LABIA [id number] [place] [address] [place] Leukocyte esterase Test strip Ql (U) Negative Normal Negative, 25 Onesimo/mL [facility] Comment on above: Order Comment: Speci men Type: URINE SPECIMENOrdering Facility: [facility] Address: [address] [place] [address] Performed By: #### 2 4356-8 ####[facility] LABCLIA [id number] [place] [address] [place] Nitrite Ql (U) Negative Normal Negative [facility] Comment on above: Order Comment: Speci men Type: URINE SPECIMENOrdering Facility: [facility] Address: [address] [place], [place] [address] Performed By: #### 2 4356-8 ####[facility] LABCLIA [id number] [place] [address] [place] pH (U) 5.5 [pH] Normal 5.0-8.0 [facility] Comment on above: Order Comment: Speci men Type: URINE SPECIMENOrdering Facility: [facility] Address: [address] [place] [address] Performed By: #### 2 4356-8 ####[facility] LABIA [id number] [place] [address] [place] Protein (U) [Mass/Vol] Trace Normal Trace, Negative [facility] Comment on above: Order Comment: Speci men Type: URINE SPECIMENOrdering Facility: [facility] Address: [address] [place] [address] Performed By: #### 2 4356-8 ####[facility] TOL[facility] [id number] [place] [address] [place] RBC LM.HPF (Urine sed) [#/Area] 0-3 /HPF Normal 0-3 /HPF [facility] Comment on above: Order Comment: Speci men Type: URINE SPECIMENOrdering Facility: [facility] Address: [address] [place] [address] Performed By: #### 2 4356-8 ####[facility] TOLEDOIA [id number] [place] [address] [place] Specific gravity (U) [Rel density] 1.041 High 1.005-1.030 [facility] Comment on above: Order Comment: Speci men Type: URINE SPECIMENOrdering Facility: [facility] Address: [address] [place], [place] [address] Performed By: #### 2 4356-8 ####[facility] LABIA [id number] [place] [address] [place] Urobilinogen Ql (U) Negative Normal Negative [facility] Comment on above: Order Comment: Speci men Type: URINE SPECIMENOrdering Facility: [facility] Address: [address] Performed By: #### 2 4356-8 ####[facility] LABCLIA [id number] [place] [id number] [place] WBC LM.HPF (Urine sed) [#/Area] 0-5 /HPF Normal 0-5 /HPF [facility] Comment on above: Order Comment: Speci men Type: URINE SPECIMENOrdering Facility: [facility] Address: [address] [place], [place] [id number] Performed By: #### 2 4356-8 ####[facility] LABCLIA [id number] [place] [id number] [place] XR HAND/WRIST SURVEY [...] sciatica. TECHNIQUE: XR HAND/WRIST SURVEY 1V PA MAYUIR Laterality: BILATERAL Number of different views (projections): 1 M: XB_1 COMPARISON: RESULT: Joint spaces and carpal rows are maintained. No significant chondrocalcinosis. No acute fracture or dislocation. There are no bony erosions. IMPRESSION: No radiographic findings of inflammatory arthropathy. [employer] M[employer] Gate: PSCB Transcribe Date/Time: Oct 30 2022 10:39A Dictated by : OLAYINKA SARGENT MD This examination was interpreted and the report reviewed and electronically signed by: OLAYINKA SARGENT MD on Oct 30 2022 10:39AM EST [id number] Normal [facility] cCP IgG SerPl-aCncon 023 Cyclic citrullinated peptide IgG Qn <15 Normal <20 [facility] Comment on above: Order Comment: Speci men Type: BLOOD SPECIMENOrdering Facility: [facility] Address: [address] [place], [place] [id number] Performed By: #### 3 3935-8 ####[facility] PORTILLO [id number] [facility] [id number] [id number] [facility] CNOVon 10-19-2022 CNOV Office Visit (SPMESH ) LISBHAVESH Royal ([id number]) 1975 M Date Time Provider Department 10/19/22 1:15 PM OLAYINKA BOYD [facility] During your visit today, we recorded the following information about you: Pulse Blood pressure Weight Height 85/minute 135/75 93 kg 1.626 m Olayinka Boyd PA-C 10/19/2022 1:38 PM Signed [facility] Low Back Pain - Chronic (> 12 weeks) Initial Exam SUBJECTIVE HISTORY OF PRESENT ILLNESS: Bhavesh C Melia is a 46 year old male who [...] LEFT Lateral (more content not included)... Normal [facility] XR hip RT min 2V(w/wo pelvis )*on 09-28-2022 XR hip RT min 2V(w/wo pelvis)* [facility] Other XR hip RT min 2V(w/wo pelvis)* [facility] [place] [employer] Other XR hip RT min 2V(w/wo pelvis)* [address] [facility] [employer] Other XR hip RT min 2V(w/wo pelvis)* [place] [address] [employer] Other XR hip RT min 2V(w/wo pelvis)* XRay Report [employer] Other XR hip RT min 2V(w/wo pelvis)* Signed [employer] Other XR hip RT min 2V(w/wo pelvis)* Patient: Bhavesh Cárdenas MR#: [id number] [employer] Other XR hip RT min 2V(w/wo pelvis)* 0716 [employer] Other XR hip RT min 2V(w/wo pelvis)* : 1975 Acct:[id number] [employer] Other XR hip RT min 2V(w/wo pelvis)* Age/Sex: 46 / M ADM Date: 09/28/22 [employer] Other XR hip RT min 2V(w/wo pelvis)* Loc: [facility] Room: Type: [facility] [employer] Other XR hip RT min 2V(w/wo pelvis)* Attending Dr: Mliton Valentine II, MD [employer] Other XR hip RT min 2V(w/wo pelvis)* Copies to: Milton Valentine MD [employer] Other XR hip RT min 2V(w/wo pelvis)* Ordering Provider: Milton Valentine MD [employer] Other XR hip RT min 2V(w/wo pelvis)* Date of Service: 09/28/22 [employer] Other XR hip RT min 2V(w/wo pelvis)* XR/XR hip RT min 2V(w/wo pelvis)*: Right hip pain [employer] Other XR hip RT min 2V(w/wo pelvis)* RIGHT HIP - 2 views: [employer] Other XR hip RT min 2V(w/wo pelvis)* CLINICAL HISTORY: Right groin pain for the past 6 months. No injury. [employer] Other XR hip RT min 2V(w/wo pelvis)* COMPARISON: None [employer] Other XR hip RT min 2V(w/wo pelvis)* AP view the pelvis and and crosstable lateral views of the right hip were obtained. There is no [employer] Other XR hip RT min 2V(w/wo pelvis)* evidence of fracture or dislocation. The hip joint spaces are symmetric. No prominent hypertrophy [employer] Other XR hip RT min 2V(w/wo pelvis)* is seen. There are no significant soft tissue abnormalities. [employer] Other XR hip RT min 2V(w/wo pelvis)* XR/XR hip RT min 2V(w/wo pelvis)* [employer] Other XR hip RT min 2V(w/wo pelvis)* IMPRESSION: [employer] Other XR hip RT min 2V(w/wo pelvis)* NO ACUTE BONY FINDINGS. [employer] Other XR hip RT min 2V(w/wo pelvis)* Impression dictated by: Polina Cabrera M.D.09/28/2022 2:28 PM [employer] Other XR hip RT min 2V(w/wo pelvis)* Dictation Location: [facility] Other XR hip RT min 2V(w/wo pelvis)* Transcribed By: [facility] 09/28/22 1428 [employer] Other XR hip RT min 2V(w/wo pelvis)* Dictated By: Polina Cabrera MD 09/28/22 1426 [employer] Other XR hip RT min 2V(w/wo pelvis)* Signed By: [employer] Other XR hip RT min 2V(w/wo pelvis)* 09/28/22 [facility] [employer] Other MRI LSPINE WO CONon 08-18-20 MRI [...] by: DIANA GUZMÁN Date: 2022-08-18 16:57 Normal [facility] XR LSPINE 2_3 VIEWSon 2021 XR [...] by: WASHINGTON DURAN Date: 2022-08-10 18:50 Normal [facility] Vital Signs Date Time Vital Sign Value Performing Clinician Facility 11-19-2023 14:55-0500 Body height 162.6 cm Shaikh Moi GREEN Work Phone: [facility] 11-19-2023 14:55-0500 Body mass index (BMI) [Ratio] 41.2 kg/m2 Shaikh Moi GREEN Work Phone: [facility] 11-19-2023 14:55-0500 Body temperature 98.4 [degF] Shaikh Moi GREEN Work Phone: [facility] 11-19-2023 14:55-0500 Body weight 108.86 kg Shaikh Moi GREEN Work Phone: [facility] 11-19-2023 14:55-0500 Diastolic blood pressure 90 mm[Hg] Shaikh Moi GREEN Work Phone: [facility] 11-19-2023 14:55-0500 Heart rate 74 /min Shaikh Moi GREEN Work Phone: [facility] 11-19-2023 14:55-0500 SaO2% (BldA) [Mass fraction] 98 % Shaikh Moi GREEN Work Phone: [facility] 11-19-2023 14:55-0500 Systolic blood pressure 140 mm[Hg] Shaikh Moi GREEN Work Phone: [facility] 09-13-2023 14:40-0500 Body height 163.83 cm Francis Barr Other [facility] Other 09-13-2023 14:40-0500 Body mass index (BMI) [Ratio] 40.39 kg/m2 Francis Barr Other [employer] Other 09-13-2023 14:40-0500 Body weight 108.41 kg Francis Barr Other [facility] Other 08-24-2023 14:24-0500 Body temperature 98.9 [degF] MD Shaikh Prater Work Phone: [facility] 08-24-2023 14:24-0500 Diastolic blood pressure 80 mm[Hg] MD Shaikh Prater Work Phone: [facility] 08-24-2023 14:24-0500 Heart rate 84 /min MD Shaikh Prater Work Phone: [facility] 08-24-2023 14:24-0500 Respiratory rate 20 /min MD Shaikh Prater Work Phone: [facility] 08-24-2023 14:24-0500 SaO2% (BldA) [Mass fraction] 96 % MD Shaikh Prater Work Phone: [facility] 08-24-2023 14:24-0500 Systolic blood pressure 168 mm[Hg] MD Shaikh Prater Work Phone: [facility] 08-24-2023 14:22-0500 Body height 162.56 cm MD Shaikh Prater Work Phone: [facility] 08-24-2023 14:22-0500 Body weight 109.1 kg MD Shaikh Prater Work Phone: [facility] 08-02-2023 14:05-0400 Body height 163.83 cm Carmen [place] Other [employer] Other 08-02-2023 14:05-0400 Body mass index (BMI) [Ratio] 40.39 kg/m2 Carmen [place] Other [employer] Other 08-02-2023 14:05-0400 Body temperature 97.7 [degF] Carmen [place] Other [employer] Other 08-02-2023 14:05-0400 Body weight 108.41 kg Carmen [place] Other [employer] Other 08-02-2023 14:05-0400 Diastolic blood pressure 76 mm[Hg] Carmen [place] Other [employer] Other 08-02-2023 14:05-0400 Respiratory rate 18 /min Carmen [place] Other [employer] Other 08-02-2023 14:05-0400 SaO2% (BldA) [Mass fraction] 98 % Carmen [place] Other [facility] Other 08-02-2023 14:05-0400 Systolic blood pressure 120 mm[Hg] Carmen [place] Other [facility] Other 01-27-2023 10:40-0400 Body height 162.56 cm [employer]BC Kristina Bullimore Work Phone: [facility] 01-27-2023 10:40-0400 Body temperature 97.6 [degF] [employer] Kristina Bullimore Work Phone: [facility] 01-27-2023 10:40-0400 Body weight 96 kg [employer] Kristina Bullimore Work Phone: [facility] 01-27-2023 10:40-0400 Diastolic blood pressure 87 mm[Hg] [employer] Kristina Bullimore Work Phone: [facility] 01-27-2023 10:40-0400 Heart rate 86 /min [employer] Kristina Bullimore Work Phone: [facility] 01-27-2023 10:40-0400 Respiratory rate 18 /min [employer] Kristina Bullimore Work Phone: [facility] 01-27-2023 10:40-0400 SaO2% (BldA) [Mass fraction] 97 % [employer] Kristina Bullimore Work Phone: [facility] 01-27-2023 10:40-0400 Systolic blood pressure 143 mm[Hg] [employer]BC Kristina Bullimore Work Phone: [facility] 11-24-2022 10:01-0500 Body temperature 98.2 [degF] Spine Main Work Phone: [facility] 11-24-2022 10:01-0500 Diastolic blood pressure 94 mm[Hg] Spine Main Work Phone: [facility] 11-24-2022 10:01-0500 Heart rate 89 /min Spine Main Work Phone: [facility] 11-24-2022 10:01-0500 Respiratory rate 18 /min Spine Main Work Phone: [facility] 11-24-2022 10:01-0500 SaO2% (BldA) [Mass fraction] 97 % Sp[facility] Main Work Phone: [facility] 11-24-2022 10:01-0500 Systolic blood pressure 140 mm[Hg] Spine Main Work Phone: [facility] 11-15-2022 14:10-0500 Diastolic blood pressure 87 mm[Hg] Kb Tankha DO Work Phone: [facility] 11-15-2022 14:10-0500 Heart rate 90 /min Kb Tankha DO Work Phone: [facility] 11-15-2022 14:10-0500 Respiratory rate 18 /min Kb Tankha DO Work Phone: [facility] 11-15-2022 14:10-0500 SaO2% (BldA) [Mass fraction] 96 % Kb Tankha DO Work Phone: [facility] 11-15-2022 14:10-0500 Systolic blood pressure 121 mm[Hg] Kb Tankha DO Work Phone: [facility] 10-30-2022 09:31-0500 Body temperature 95.59 [degF] Santana Harris MD Work Phone: [facility] 10-30-2022 09:31-0500 Diastolic blood pressure 96 mm[Hg] Santana Harris MD Work Phone: [facility] 10-30-2022 09:31-0500 Heart rate 68 /min Santana Harris MD Work Phone: [facility] 10-30-2022 09:31-0500 Systolic blood pressure 144 mm[Hg] Santana Harris MD Work Phone: [facility] 10-19-2022 13:04-0500 Body height 162.6 cm Olayinka Boyd PA-C Work Phone: [facility] 10-19-2022 13:04-0500 Body weight 92.99 kg Olayinka Davisowell PA-C Work Phone: [facility] 10-19-2022 13:04-0500 Diastolic blood pressure 75 mm[Hg] Olayinka Loaizaell PA-C Work Phone: [facility] 10-19-2022 13:04-0500 Heart rate 85 /min Olayinka Loaizaell PA-C Work Phone: [facility] 10-19-2022 13:04-0500 SaO2% (BldA) [Mass fraction] 97 % Olayinka Davisowell PA-C Work Phone: [facility] 10-19-2022 13:04-0500 Systolic blood pressure 135 mm[Hg] Olayinka Loaizaell PA-C Work Phone: [facility] 09-28-2022 12:30-0500 Body height 163.83 cm Milton Valentine II Other [employer] Other 09-28-2022 12:30-0500 Body mass index (BMI) [Ratio] 34.47 kg/m2 Milton Valentine II Other [employer] Other 09-28-2022 12:30-0500 Body weight 92.53 kg Milton Valentine II Other [employer] Other 09-26-2022 11:00-0500 Body height 163.83 cm Francis Barr Other [employer] Other 09-26-2022 11:00-0500 Body mass index (BMI) [Ratio] 34.47 kg/m2 Francis Barr Other [employer] Other 09-26-2022 11:00-0500 Body weight 92.53 kg Francis Cortney Other [employer] Other 07-20-2022 10:45-0400 Body height 163.83 cm Nahid Olexa Other [employer] Other 07-20-2022 10:45-0400 Body mass index (BMI) [Ratio] 36.5 kg/m2 Nahid Olexa Other [employer] Other 07-20-2022 10:45-0400 Body weight 97.98 kg Nahid Olexa Other [employer] Other Encounters Encounter Date Encounter Type Care Provider Facility Start: 06-11-2024 End: 06-11-2024 ambulatory JOS MARKY Not Available Start: 05-27-2024 End: 05-27-2024 ambulatory DENIS RAMEY Not Available Start: 04-21-2024 End: 04-21-2024 ambulatory SHAIKH MOI Not Available Start: 04-16-2024 ambulatory ANANT SPANN [facility] Start: 03-06-2024 End: 03-06-2024 ambulatory SHAIKH MOI Not Available Start: 03-05-2024 ambulatory BHAVESH JAMES [facility] Start: 03-05-2024 Encounter for other general examination BHAVESH JAMES [facility] Start: 02-19-2024 End: 02-19-2024 ambulatory DANNI MANSFIELD [facility] Start: 02-19-2024 End: 02-19-2024 ambulatory [facility] Start: 01-22-2024 End: 01-22-2024 ambulatory MEYERROMELIA TRONCOSOJames Not Available Start: 12-17-2023 End: 12-17-2023 ambulatory SHAIKH ABAJames Not Available Start: 11-30-2023 End: 11-30-2023 ambulatory [facility] Start: 11-21-2023 End: 11-21-2023 ambulatory [facility] Start: 11-19-2023 End: 11-19-2023 ambulatory SHAIKH ABAJames Not Available Start: 11-19-2023 End: 11-19-2023 Office outpatient visit 25 minutes Shaikh Moi GREEN Work Phone: [facility] Comment on above: Uncontrolled type 2 diabetes mellitus with hyperglycemia (CMS/HCC) (Primary Dx); Chronic neck and back pain; Primary hypertension (CMS/HCC); Low back pain of thoracolumbar region with sciatica Start: 11-19-2023 Alia Prater MD Work Phone: [facility] Start: 11-19-2023 Alia Prater MD Work Phone: [facility] Start: 11-15-2023 Orders Only Shaikh Moi GREEN Work Phone: [facility] Comment on above: Metabolic syndrome X (Primary Dx); Pure hypertriglyceridemia (CMS/HCC) Start: 11-08-2023 Orders Only Shaikh Moi GREEN Work Phone: [facility] Comment on above: Moderate persistent asthma without complication (CMS/HCC) (Primary Dx) Start: 11-05-2023 End: 11-05-2023 ambulatory [facility] Start: 10-29-2023 End: 10-29-2023 ambulatory Francis Barr Other [employer] Other Start: 10-29-2023 Telephone encounter Francis Barr [facility] [place], operated by [facility] Start: 10-16-2023 End: 10-16-2023 ambulatory SHAIKH MOI Not Available Start: 09-24-2023 End: 09-24-2023 ambulatory Francis Barr Other [employer] Other Start: 09-24-2023 Telephone encounter Francis Barr [facility] Start: 09-13-2023 End: 09-13-2023 ambulatory Francis Brar Other [employer] Other Start: 09-13-2023 Office outpatient vi sit 15 minutes Francismichele Barr [facility] [place] operated by [facility] Start: 08-24-2023 End: 08-24-2023 Emergency department patient visit Shaikh Moi Facility:[facility] Start: 08-24-2023 End: 08-24-2023 Emergency department patient visit MD Shaikh Prater Work Phone: [facility] Work Phone: Start: 08-02-2023 End: 08-02-2023 ambulatory Carmen [place] Other [facility] Other Start: 08-02-2023 Office outpatient vi sit 15 minutes Carmen [place] [facility] Start: 07-13-2023 End: 07-13-2023 ambulatory Shaikh Moi Facility:[facility] Start: 07-13-2023 End: 07-13-2023 Patient encounter procedure MD Shaikh Prater Work Phone: [facility] [address] Start: 07-04-2023 Refill Kb Olivo Work Phone: Neurology Pain Comment on above: Refill Request (Traz odone Rx); Refill Request; Refill Request Start: 06-21-2023 End: 06-21-2023 ambulatory Tracy Wu Facility:[facility] Start: 06-21-2023 End: 06-21-2023 ambulatory MD Shaikh Prater Work Phone: [facility] Work Phone: Start: 06-21-2023 End: 06-21-2023 Patient encounter procedure MD Shaikh Prater Work Phone: [facility] [place] Work Phone: Start: 05-21-2023 End: 05-22-2023 ambulatory Terri Abrams MD Facility:[facility] Start: 05-16-2023 End: 05-16-2023 ambulatory Shaikh Moi Facility:[facility] Start: 05-16-2023 End: 05-16-2023 ambulatory MD Shaikh Prater Work Phone: [facility] Work Phone: Start: 05-16-2023 End: 05-16-2023 Patient encounter procedure MD Shaikh Prater Work Phone: [facility] [place] Work Phone: Start: 04-16-2023 Refill [place] Kathe MANN [facility] Pain Comment on above: Refill Request Start: 03-28-2023 Telephone encounter Kb Tank yates DO Work Phone: Pain Recovery Comment on above: Electronic Communica tion Start: 03-27-2023 Telephone encounter [facility] Provider Fam n Recovery Comment on above: Electronic Communica tion Start: 03-03-2023 End: 03-03-2023 ambulatory HASMUKH DIAB . Facility: Start: 02-19-2023 Telephone encounter Kb Tank yates DO Work Phone: Pain Recovery Comment on above: Patient Question Start: 02-13-2023 End: 02-13-2023 ambulatory KB TANKHA Facility:[facility] Start: 02-09-2023 Telephone encounter Kb Tank yates DO Work Phone: Pain Recovery Comment on above: Patient Question Start: 02-06-2023 ambulatory Kb Lorenzo D O Work Phone: Neurology Pain Comment on above: need advice Start: 01-27-2023 End: 01-27-2023 Emergency department patient visit Shaikh Moi Facility:[facility] Start: 01-27-2023 End: 01-27-2023 Emergency department patient visit [employer] Kristina Delgado Work Phone: [facility] Work Phone: Start: 01-24-2023 End: 01-24-2023 ambulatory [facility] Facility[facility] Start: 12-28-2022 End: 12-28-2022 [facility] [place] Castellanos Therapist Work Phone: Pain [...] Need help please. Start: 11-28-2022 ambulatory Kb Lorenzo D O Work Phone: Neurology Pain Comment on above: Bhavesh Cárdenas Injec tion schedule Start: 11-24-2022 ambulatory KB LORENZO Facility:[facility] Start: 11-24-2022 End: 11-24-2022 Patient encounter procedure Spine Med Procedure Main Work Phone: [facility] [place] Comment on above: APPOINTMENT CANCELLE D (Primary Dx) Start: 11-15-2022 End: 11-15-2022 ambulatory OLAYINKA BOYD Facility:[facility] Start: 11-15-2022 End: 11-15-2022 Patient encounter procedure Kb Tankha DO Work Phone: Neurology Pain Comment on above: Chronic pain syndrom e (Primary Dx); Chronic bilateral low back pain without sciatica; Disturbance of sleep pattern associated with pain; Lumbar spondylosis; Sacroiliitis (HCC) Start: 10-30-2022 End: 10-31-2022 ambulatory SANTANA HARRIS Facility:[facility] Start: 10-30-2022 End: 10-30-2022 Subsequent hospital visit by physician Keshawn Lemons [facility] Radiology Comment on above: Localized, primary o steoarthritis of hand, unspecified laterality [M19.049] Start: 10-30-2022 End: 10-30-2022 Patient encounter procedure Santana Harris MD Work Phone: [facility] Comment on above: Localized, primary o steoarthritis of hand, unspecified laterality (Primary Dx); Arthritis; Chronic right-sided low back pain without sciatica Start: 10-23-2022 End: 10-23-[address] ERICK Rocha Facility: Start: 10-19-2022 End: 10-19-2022 ambulatory OLYAINKA BOYD Facility:[facility] Start: 10-19-2022 End: 10-19-2022 Patient encounter procedure Olayinka COWANC Work Phone: Spine Medicine Comment on above: Chronic bilateral lo w back pain without sciatica (Primary Dx) Start: 10-16-2022 End: 10-16-2022 ambulatory Milton Valentine II Other [employer] Other Start: 10-16-2022 Telephone encounter Milton Valentine II [employer] Start: 09-28-2022 FQ visit new patient Milton velazquez II [facility] Start: 09-28-2022 End: 09-28-2022 ambulatory MD Carmen Wheatley Work Phone: [facility] Work Phone: Start: 09-28-2022 End: 09-28-2022 Patient encounter procedure MD Carmen Wheatley Work Phone: [facility] Start: 09-26-2022 End: 09-26-2022 ambulatory Francis Barr Other [employer] Other Start: 09-26-2022 Office outpatient ne w 30 minutes Francis Barr [facility] Start: 08-18-2022 End: 08-19-2022 ambulatory SHAIKH Ana FATITID Facility:[facility] Start: 08-14-2022 End: 08-15-2022 ambulatory MEYER H FAWWAD Facility:[facility] Start: 08-10-2022 End: 08-11-2022 ambulatory MEYER H FAWWAD Facility:[facility] Start: 07-20-2022 End: 07-20-2022 ambulatory Nahid Olexa Other [employer] Other Start: 07-20-2022 Office outpatient ne w 30 minutes Nahid Olexa [facility] Start: 07-13-2022 End: 07-13-2022 ambulatory ARCELIA [...] lumbar spin e, four or more views [employer] Kristina Bullimore Work Phone: Start: 11-24-2022 Gluc bld gluc mntr d ev cleared fda spec home use [facility] Provider Start: 10-30-2022 Joint survey single view 2 or more joints Santana Harris MD Work Phone: Start: 09-28-2022 Plain X-ray of right hip MD Carmen Wheatley Work Phone: Plan of Treatment Date Care Activity Detail Author Start: 10-30-2025 DIABETES SCREEN DIABETES SCREEN [facility] Start: 10-30-2025 Diabetes Screening Diabetes Screening [facility] Start: 09-07-2025 Screening for malignant neoplasm of colon [facility] Start: 02-27-2025 Glaucoma screening Diabetes: Retinopathy Screening [facility] Start: 11-12-2024 Urine screening for protein Diabetes: Urine Protein Screening [facility] Start: 05-12-2024 Hemoglobin A1c measurement Diabetes: Hemoglobin A1C [facility] Start: 02-16-2024 DIABETES SCREEN DIABETES SCREEN [facility] Start: 12-17-2023 End: 12-17-2023 Patient encounter procedure 12/17/2023 2:30 PM EDT Office Visit [facility] [address] [place] [id number] Shaikh Prater MD [address] [place] [phone] [facility] Start: 11-19-2023 End: 11-19-2023 Patient encounter procedure 11/19/2023 2:45 PM EST Office Visit [facility] [address] [place] [phone] Shaikh Prater MD [address] [place] [phone] [facility] Start: 11-15-2023 End: 11-15-2024 Lipid 1996 panel - Serum or Plasma Lipid panel Lab Routine Metabolic syndrome X Pure hypertriglyceridemia (CMS/HCC) Expected: 11/15/2023 (Approximate), Expires: 11/15/2024 [facility] Work Phone: Comment on above: Expected: 11/15/2023 (Approximate), Expi res: 11/15/2024 Start: 10-08-2023 Hemoglobin A1c measurement Diabetes: Hemoglobin A1C [facility] Start: 06-21-2023 MR lumbar spine wo con MR lumbar spine wo con [facility] Start: 06-21-2023 MR Lumbar spine WO contrast [facility] Start: 06-08-2023 Influenza vaccination [facility] Start: 10-30-2022 End: 12-30-2022 MIKAYLA BY IFA WITH REFLEX [facility] Work Phone: Comment on above: Expected: 10/30/2022, Expires: 3 Start: 10-30-2022 End: 12-30-2022 Cyclic citrullinated peptide IgG Ab [Units/volume] in Serum or Plasma [facility] Work Phone: Comment on above: Expected: 10/30/2022, Expires: 3 Start: 10-30-2022 End: 12-30-2022 Erythrocyte sedimentation rate [facility] Work Phone: Comment on above: Expected: 10/30/2022, Expires: 3 Start: 10-08-2022 DEPRESSION ASSESSMENT DEPRESSION ASSESSMENT [facility] Start: 06-08-2022 Influenza vaccination INFLUENZA (#1) [facility] Start: 12-14-2021 Urine screening for protein Diabetes: Urine Protein Screening [facility] Start: 04-08-2021 COVID-19 VACCINE (3 - Booster for Pfizer series) COVID-19 VACCINE (3 - Booster for Pfizer series) [facility] Start: 04-08-2021 COVID-19 VACCINE (3 - Pfizer series) COVID-19 VACCINE (3 - Pfizer series) [facility] Start: 02-11-2021 COVID-19 VACCINE (2 - Pfizer series) COVID-19 VACCINE (2 - Pfizer series) [facility] Start: 01-04-2020 Urine microalbumin profile [facility] Start: 2018 COLOGUARD (FIT-DNA) COLOGUARD (FIT-DNA) [facility] Start: 2018 Colonoscopy COLONOSCOPY [facility] Start: 2018 COLORECTAL CANCER SCREENING COLORECTAL CANCER SCREENING [facility] Start: [address] COLONOGRAPHY [facility] Start: 2018 FECAL OCCULT BLOOD FECAL OCCULT BLOOD [facility] Start: 2018 SIGMOIDOSCOPY SIGMOIDOSCOPY [facility] Start: 01-04-2010 Urine microalbumin profile DTAP,TDAP,TD (1 - Tdap) [facility] Start: 2008 Lipid 1996 panel - Serum or Plasma Lipid Screening [facility] Start: 2008 LIPID SCREEN LIPID SCREEN [facility] Start: 1992 Urine microalbumin profile DTAP,TDAP,TD (1 - Tdap) [facility] Start: 1991 HEPATITIS C SCREENING HEPATITIS C SCREENING [facility] Start: 1991 HIV SCREENING HIV SCREENING [facility] Start: 1973 HEPATITIS B (1 of 3 - 3-dose series) HEPATITIS B (1 of 3 - 3-dose series) [facility] Start: 1973 Hepatitis B Vaccine (1 of 3 - 3-dose series) Hepatitis B Vaccine (1 of 3 - 3-dose series) [facility] Start: 1973 Screening for malignant neoplasm of colon [facility] Patient Education [facility] Work Phone: Patient referral [facility] Work Phone: SPINE INTERVENTION PROCEDURE SPINE INTERVENTION PROCEDURE Procedures Routine Sacroiliitis (HCC) Ordered: 11/15/2022 [facility] Work Phone: Comment on above: Ordered: 11/15/2022 [facility] Immunizations Immunization Date Immunization Notes Care Provider [facility] 07-13-2023 SARS-COV-2 (COVID-19 ) vaccine, mRNA, spike protein, LNP, PF, 50 mcg/0.5 mL Shaikh Moi GREEN Work Phone: [facility] 06-27-2023 Influenza, injectabl e, Madin Greer Canine Kidney, preservative free, quadrivalent Shaikh Moi GREEN Work Phone: [facility] 02-11-2021 COVID-19 original vaccine, age 12+ yr, monovalent ([email or web address] - PURPLE TOP) Santana Harris MD Work Phone: [facility] 01-21-2021 COVID-19 original vaccine, age 12+ yr, monovalent ([email or web address] - PURPLE TOP) Santana Harris MD Work Phone: [facility] 07-07-2020 influenza, injectabl e, quadrivalent, preservative free Santana Harris MD Work Phone: [facility] 07-07-2020 influenza virus vacc ine, unspecified formulation Kb Lorenzo DO Work Phone: [facility] 09-29-2019 influenza, injectabl e, quadrivalent, contains preservative Shaikh Moi GEREN Work Phone: [facility] 08-13-2019 influenza, injectabl e, quadrivalent, contains preservative Shaikh Moi GREEN Work Phone: [facility] 08-24-2017 influenza, injectabl e, quadrivalent, preservative free Santana Harris MD Work Phone: [facility] 07-07-2016 influenza, injectabl e, quadrivalent, preservative free Santana Harris MD Work Phone: [facility] 07-02-2015 influenza, injectabl e, quadrivalent, preservative free Santana Harris MD Work Phone: [facility] 07-02-2015 influenza, seasonal, injectable, preservative free Shaikh Moi GREEN Work Phone: [facility] 08-05-2014 influenza, seasonal, injectable, preservative free Santana Harris MD Work Phone: [facility] 07-18-2013 influenza, seasonal, injectable, preservative free Santana Harris MD Work Phone: [facility] 07-18-2013 seasonal influenza, intradermal, preservative free Shaikh Moi GREEN Work Phone: [facility] 07-05-2012 influenza, seasonal, injectable, preservative free Shaikh Moi GREEN Work Phone: [facility] 09-04-2011 influenza virus vacc ine, whole virus Shaikh Moi GREEN Work Phone: [facility] 07-07-2010 influenza virus vacc ine, whole virus Shaikh Moi GREEN Work Phone: [facility] 01-03-2010 diphtheria, tetanus toxoids and pertussis vaccine Shaikh Moi GREEN Work Phone: [facility] 01-03-2010 tetanus and diphther ia toxoids, adsorbed, preservative free, for adult use (5 Lf of tetanus toxoid and 2 Lf of diphtheria toxoid) Santana Harris MD Work Phone: [facility] 01-03-2010 tetanus toxoid, redu los diphtheria toxoid, and acellular pertussis vaccine, adsorbed Santana Harris MD Work Phone: [facility] Payers Date Payer Category Payer Medicaid [id number] 2.1 [id number] 2023 Self-pay [id number] 2022 Private Health Insurance [id number] 2022 Medicaid [id number] 1973 Unknown [id number] [id number]3 1973 Unknown [id number] 2.16.840.1.871855.3.579.2.593 1973 Unknown [id number] 2.16.840.1.618506.3.579.2.593 1973 Unknown [id number] 2.16.840.1.990595.3.579.2.593 1973 Unknown [id number] 2.16.840.1.305724.3.579.2.593 1973 Unknown [id number] 2.16.840.1.682270.3.579.2.593 1973 Unknown [id number] 2.16.840.1.488527.3.579.2.593 1973 Unknown [id number] 2.16.840.1.411959.3.579.2.196 1973 Unknown [id number] 2.16.840.1.269161.3.579.2.1259 1973 Unknown [id number] 2.16.840.1.855512.3.579.2.1258 1973 Unknown [id number] 2.16.840.1.593611.3.579.2.1258 1973 Unknown [id number] 2.16.840.1.723122.3.579.2.1258 1973 Unknown [id number] 2.16.840.1.680926.3.579.2.1258 1973 Unknown [id number] 2.16.840.1.312474.3.579.2.1258 1973 Unknown [id number] 2.16.840.1.325326.3.579.2.1258 1973 Unknown [id number] 2.16.840.1.864301.3.579.2.9 1959 Medicaid [id number] Unknown MMO [id number] Unknown [place] / [id number] Unknown [id number] 2.16.840.1.283152.3.579.2.531 Unknown [id number] 2.16.840.1.989095.3.579.2.531 Unknown [id number] 2.16.840.1.602195.3.579.2.531 Unknown [id number] 2.16.840.1.164227.3.579.2.531 Unknown [id number] 2.16.840.1.540577.3.579.2.531 Social History Date Type Detail Facility Unknown if ever smoked [facility] Start: 11-15-2022 End: 11-19-2023 Sex Assigned At [facility] Start: 1975 Sex Assigned At Male F [facility] Start: 10-19-2022 End: 11-19-2023 Tobacco smoking status ORIS Never smoked tobacco [facility] Start: 10-19-2022 Tobacco use and exposure Smokeless tobacco non-user [facility] Start: 1975 Sex Assigned At Not on file C [facility] Start: 01-27-2023 End: 08-24-2023 Tobacco smoking status ORIS Ex-smoker (finding) [facility] Start: 11-15-2022 End: 11-19-2023 History of Social function [facility] Adult Depression Screening Assessment 2 [facility] Start: 10-16-2023 End: 11-19-2023 Alcohol intake Lifetime non-drinker (finding) [facility] Are you now , , , , never or living with a partner? Refused [facility] Start: 09-17-2023 Alcohol Comment caffeine: 1-2 cups per day [facility] NEGATED: Highlighted rowStart: NINF History of tobacco use Passive smoker [facility] Clinical Notes 08-08-2021 to 04-16-2024 Shaikh Moi MD - 11/19/2023 3:43 PM Suzanna Prater MD - 11/19/2023 3:38 PM Suzanna Prater MD - 11/19/2023 3:38 PM Suzanna Prater MD - 11/19/2023 2:45 PM EST Note Date & Type Note Facility 04-16-2024 Note Pain Medicine Medical [address] [address] Referral Source: Dr. Mansfield, [facility] Neurosurgery CC: Chief Complaint Patient presents with Pain Chief complaint - pain from the neck all the way to the lower back that radiates through the groin area and down the legs SUBJECTIVE: Bhavesh Cárdenas is a 48 y.o. male who presents for initial consultation for chronic pain of the lower back. The patient has had this pain for most of his life but states that the pain has gotten worse over time . Pain is located in the low back and is radiating. The pain has worsened. The pain quality is described as pressure, sharp, aching, burning, and shooting where it often radiates down the back of legs, groin and testicles, and up to the thoracic and cervical spine. The pain is constant. He also notes urinary urgency but prior MRI ruled out cauda equina syndrome. Today, the pain intensity is rated as a 9 on a scale of 0-10. Patient reports associated symptoms of numbness and tingling. Pain is slightly alleviated with oxycontin - he is prescribed 10 mg Q6H but states that he often just takes 5 mg. Pain interferes with most ADLs andhe has been on disability due to the pain. He has been seen by pain management at [place] and at [facility] in the past where he went through PT, RFAs, epidural injections with no relief. He saw Dr. Mansfield who referred him here for evaluation for SCS and was cleared by Dr. James prior to this visit. Pain Assessment Pain Assessment: 0-10 Pain Score: 8 Pain Type: Chronic pain Pain Location: Back Pain Orientation: Lower Pain Radiating Towards: into groin area and down bilateral legs Pain Descriptors: Burning, Sharp, Shooting, Numbness, Tingling, Radiating Pain Frequency: Constant/continuous Interference on Function: pts mobility is limited Pain Onset: Ongoing Clinical Progression: Gradually worsening Aggravating Factors: Bending, Exercise, Kneeling, Squatting, Stairs, Standing, Straightening, Stretching, Walking Patient's Stated Pain Goal: 2 Pain Interventions: Other (Comment) Per Dr. Mansfield's note on 02/18: He had also been evaluated in [facility] neurosurgery clinic by Dunia Ryan in November 2021 for a second opinion regarding his symptoms. At that time, he noted pain extending from his groin to his neck and also noted pain in the jaw, hands, arms, and legs. Nothing makes them better. Worse with temperature changes, sitting, lying. Does report jerking movements of his bilateral arms as well as internal rotation and extension of his bilateral arms with these jerking movements. States these are more prominent on the right side. He does note decreased sensation in his right lateral thigh laterally down to his right calf. He does report imbalance and has fallen. He does note that his legs have given out and he has dropped to my knees. He does report recent urinary urgency as well. He denies bowel incontinence. Has tried multiple medications, including baclofen, cyclobenzaprine, duloxetine, tizanidine, oxycodone, all with insufficient relief. Has not had previous neck or back surgery. He had most recently seen pain management at the [facility] in 2022. Has had previous imaging studies of his cervical, thoracic, lumbar spine as well as EMG of his bilateral upper and lower extremities. Notes that these were completed at [facility] in [place] around May or June 2023. Review of MRI imaging of the cervical and lumbar spine as well as bilateral upper and lower extremity EMGs did not demonstrate a clear target for any neurosurgical intervention. EMG suggested a very mild right S1 radiculopathy. There was mild right-sided neuroforaminal stenosis at L5-S1. No neurosurgical intervention was recommended during his second opinion. Past Medical History: Diagnosis Date Abdominal pain Asthma Back pain Chronic pain disorder 2019 Depression 05/08/2023 Diabetes mellitus (CMS/HCC) Extremity pain Joint pain Low back pain Neck pain Osteoarthritis Restless leg syndrome Shingles 2021 Spinal stenosis Patient Active Problem List Diagnosis Chronic pain syndrome Class 3 severe obesity due to excess calories with serious comorbidity in adult (CMS/HCC) Encounter for monitoring opioid maintenance therapy Hyperlipidemia Hypersomnia Low back pain of thoracolumbar region with sciatica Lumbar radiculopathy Metabolic syndrome X Moderate persistent asthma without complication Polyarthritis Primary hypertension Restless legs syndrome Strain of lumbar region Type 2 diabetes mellitus without complication (CMS/HCC) Uncontrolled type 2 diabetes mellitus with hyperglycemia (CMS/HCC) Intractable neuropathic pain of lower extremity Degenerative disc disease, lumbar Intervertebral disc disorders with radiculopathy, lumbar region Past Surgical History: Procedure Laterality Date (more content not included)... [facility] 03-05-2024 Note This is a 48 y/o mar ried for 30 yrs father of 2, son 30 and dtr 25 who lives in [place]. He lives with his . 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 He is waiting to get his final determination. 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 They have a dog and a cat. Who referred you for this procedure? Dr Mansfield Why were you referred for this procedure? Because he is allergic to the NSAIDS and so he can only take Oxycodone or Tylenol. He is targeting his lower back pain. When did your pain begin? He has had pain most of his life but it started affecting his work in 2018. Describe your pain for me: The pain is a burning stabbing pain, shocks, extreme pain that causes nausea Severity: Most days it's a 5/10 [address] is excruciating and he feels every bump in the road Location: He has pain in 2 discs in his neck but most of his pain is in his lower back due to spinal canal stenosis. Radiates into his right leg and pain all 4 extremities Constant vs Intermittent: The pain is constant, he has no days when he is pain free. How long has this pain been occurring? As noted, He has had this pain all his life Do you think you have a high or low pain tolerance? He feels that it is pretty high How does this pain effect you on a daily basis related to your physical activity? He can't twist or turn, his leg drags, he can't cut the grass, He can't carry most things. Typically, he starts his day by letting the dog out, tries to wash dishes, then he will turn on the TV. He takes naps because of his low energy. He can't drive or wear a belt because the bumps in the road hurt and the pressure from the belt hurt. 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 He is able to do crafts, like make necklaces. How does this pain effect you related to your mood? He thinks it might make him cranky certain days. He was depressed because he can't work anymore but he has not been depressed since he started seeing a psychiatrist Phyllis Trotter In February of 2023 and been placed on sertraline. How does it effect your thinking? Days when he is is severe pain he has to take Oxycodone and that makes him foggy. Sometimes it affects his concentration. Do you ever have thoughts that life is not worth living? No, not at all. When was the last time you had these thoughts? Before he met Phyllis, yes because he lost his job and his car was repossessed but since talking to her and re evaluating his priorities he doesn't feel so bad about those things Have you ever acted on these thoughts? No Do you own a gun or have access to one? Salvatore Who is supportive of you? His family, his , kids, mom and dad, brother who is a medical doctor in [place]. He has a very good support network he says What treatments have you tried for your pain? He has had radio ablation at L1,L5, epidural block in 2021 and that didn't work. He has had steroid shots that didn't work. He went to the [facility] for epidural black and that hurt like hell, it only lasted 2 days. How effective have these treatments been on a scale of 1-10 with 1 being the least effective and 10 being the most? They did not work. How do you cope with your pain and the stress it causes? He does the best he can to stay busy, sit outside. He just has to accept it. What other current stressors do you have? Salvatore What self directed learning have you done about spinal cord stimulators? He has googled stuff from the [facility]. He has read the pamphlets that he was given and he understands that mechanism by which the SCS works What do you understand about the procedure? He understands What are the expected benefits of the SCS in your situation? He hopes that it will take 50% of the pain , his lower back pain away. What are the potential risks of the procedure ( infection, swelling , bruising, loss of strength, or use of extremity or muscle group)? He understands there is always a risk of nerve damage, the risk of not waking up from anesthesia. The risk of infection so he understands that he cannot bath until it is implanted. How would you feel if the SCS procedure did not work? He would be sad but he would go on with life. He could be depressed and angry but what good would that do, at least he tried. If it did not work do you think you would have thoughts that life was not worth living anymore? No, not at all. I need to make the most out of life no matter what. Past Medical History: Chart reviewed. He has JUNG and uses CPAP to significant benefit. Spinal arthritis runs in the family and he has had it all his life Family Medical History: Father has MS, prostate cancer. Mother had an aneurysm behind her eye and his uncles had it as well. DMII Family Psychiatric History: maternal uncles have alcoholism PSY (more content not included)... [facility] 02-19-2024 Note Neurosurgery Clinic Note Chief Complaint: Chronic pain syndrome. Interval History: Bhavesh Cárdenas is a 48 y.o. year-old male who presents in kind referral from Dr. Barr with neurosurgery in [place] for evaluation of chronic pain primarily involving the back. Pain has been for many years, but have been progressively worsening since 2018.. It began without a clear inciting event. Pain is centered in his low back and does radiate up into the thoracic spine. It is more severe in his back than the thoracic spine, but he states that they are nearly equal. He notes intermittent radiation of pain into the groin and testicles as well as the bilateral legs. Pain is more prominent on the right than the left side of both his back and his legs. He notes that his right leg drags when he walks. He states that he can barely walk or perform any activities of daily living because of the severity of his pain. He notes some numbness in his groin and difficulty determining when he needs to use the restroom. He had undergone structural evaluation including an MRI of the lumbar spine and x-ray imaging. These did not demonstrate evidence of a target for surgical intervention. He had also been evaluated in [facility] neurosurgery clinic by Dunia Ryan in November 2021 for a second opinion regarding his symptoms. At that time, he noted pain extending from his groin to his neck and also noted pain in the jaw, hands, arms, and legs. Nothing makes them better. Worse with temperature changes, sitting, lying. Does report jerking movements of his bilateral arms as well as internal rotation and extension of his bilateral arms with these jerking movements. States these are more prominent on the right side. He does note decreased sensation in his right lateral thigh laterally down to his right calf. He does report imbalance and has fallen. He does note that his legs have given out and he has dropped to my knees. He does report recent urinary urgency as well. He denies bowel incontinence. He did do physical therapy in 2019 for the symptoms without lasting or substantial relief. He has also seen pain management and had injections without lasting or substantial relief. Reports that pain management is a joke. Has tried multiple medications, including baclofen, cyclobenzaprine, duloxetine, tizanidine, oxycodone, all with insufficient relief. Has not had previous neck or back surgery. He had most recently seen pain management at the [facility] in 2022. 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 Has had previous imaging studies of his cervical, thoracic, lumbar spine as well as EMG of his bilateral upper and lower extremities. Notes that these were completed at [facility] in [place] around May or June 2023. Review of MRI imaging of the cervical and lumbar spine as well as bilateral upper and lower extremity EMGs did not demonstrate a clear target for any neurosurgical intervention. EMG suggested a very mild right S1 radiculopathy. There was mild right-sided neuroforaminal stenosis at L5-S1. No neurosurgical intervention was recommended during his second opinion. The patient now returns to discuss the role for neuromodulation and treatment of his chronic pain. Problem List: Patient Active Problem List Diagnosis Chronic pain syndrome Class 3 severe obesity due to excess calories with serious comorbidity in adult ([facility]) Encounter for monitoring opioid maintenance therapy Hyperlipidemia Hypersomnia Low back pain of thoracolumbar region with sciatica Lumbar radiculopathy Metabolic syndrome X Moderate persistent asthma without complication Polyarthritis Primary hypertension Restless legs syndrome Strain of lumbar region Type 2 diabetes mellitus without complication ([facility]) Uncontrolled type 2 diabetes mellitus with hyperglycemia ([facility]) Past Medical History: Past Medical History: Diagnosis Date Asthma Diabetes mellitus ([facility]) Osteoarthritis Restless leg syndrome Past Surgical History: Past Surgical History: Procedure Laterality Date KNEE SURGERY x 2, left Medications: Current Outpatient Medications Medication Instructions albuterol 90 mcg/actuation inhaler INHALE 2 PUFFS BY MOUTH EVERY 4 HOURS NEEDED FOR WHEEZING amLODIPine (NORVASC) 5 mg, oral, Every morning BD Ultra-Fine Mini Pen Needle 31 gauge x 3/16 needle Daily, as directed Edevate Rick 2 Sensor kit APPLY 1 SENSOR EVERY 14 DAYS glipiZIDE XL (GLUCOTROL XL) 10 mg, oral, Daily RT Januvia 100 mg, oral, Daily Lantus Solostar U-100 Insulin 20 Units, subcutaneous metFORMIN (Glucophage) 1,000 mg tablet TAKE 1 TABLET BY MOUTH IN THE MORNING AND 1 TABLET IN THE EVENING WITH MEALS OXcarbazepine (Trileptal) 300 mg tablet TAKE 1 TABLET BY MOUTH TWICE DAILY FOR 30 DAYS oxyCODONE ( (more content not included)... [facility] 11-21-2023 Note SUBJECTIVE: Chief complaint: Referral for back pain. History of present illness: Consultation referred from neurosurgeon Dr. Barr at [facility] for back pain. Patient reports a variety of concerns that have been present for many years, though have been progressively worsening since 2018. He reports pain that extends from his groin up to his neck, though also experiences pain in his jaw, hands and arms, legs. Symptoms were not precipitated by injury and do not vary with time of day. Nothing makes them better. Worse with temperature changes, sitting, lying. Does report jerking movements of his bilateral arms as well as internal rotation and extension of his bilateral arms with these jerking movements. States these are more prominent on the right side. He does note decreased sensation in his right lateral thigh laterally down to his right calf. He does report imbalance and has fallen. He does note that his legs have given out and he has dropped to my knees. He does report recent urinary urgency as well. He denies bowel incontinence. He did do physical therapy in 2019 for the symptoms without lasting or substantial relief. He has also seen pain management and had injections without lasting or substantial relief. Reports that pain management is a joke. Has tried multiple medications, including baclofen, cyclobenzaprine, duloxetine, tizanidine, oxycodone, all with insufficient relief. Has not had previous neck or back surgery. 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 Has had previous imaging studies of his cervical, thoracic, lumbar spine as well as EMG of his bilateral upper and lower extremities. Notes that these were completed at [facility] in [place] around May or June 2023. Did previously see neurosurgeon Dr. Barr, who did not recommend neurosurgical intervention. He is here today seeking a second opinion. review of systems: Constitutional: Denies fever, chills. Head: Denies headaches. Reports jaw pain. Eyes: Denies blurred vision, diplopia. Ears: Reports tinnitus. Nose/throat: Denies dysphagia. Cardiovascular: Denies chest pain. Respiratory: Denies cough, shortness of breath. Extremities: Denies edema. Genitourinary: Reports urinary urgency. Gastrointestinal: Denies bowel incontinence. Neurologic: Reports weakness, numbness, tingling, unsteady gait, falls. Musculoskeletal: Reports neck pain, back pain. Past Medical History: Diagnosis Date Asthma Diabetes mellitus (CMS/HCC) Osteoarthritis Restless leg syndrome Past Surgical History: Procedure Laterality Date KNEE SURGERY x 2, left Social History Tobacco Use Smoking status: Former Types: Cigarettes Quit date: 2003 Years since quittin.1 Smokeless tobacco: Never Substance Use Topics Alcohol use: Never Drug use: Never Family History Problem Relation Name Age of Onset Multiple sclerosis Father Prostate cancer Father OBJECTIVE: Medications: albuterol amLODIPine Dulera HFA aerosol inhaler glipiZIDE XL Januvia tablet Lantus Solostar U-100 Insulin insulin pen metFORMIN OXcarbazepine oxyCODONE prazosin rOPINIRole sertraline tiZANidine Current Outpatient Medications: albuterol 90 mcg/actuation inhaler, INHALE 2 PUFFS BY MOUTH EVERY 4 HOURS NEEDED FOR WHEEZING, Disp: , Rfl: amLODIPine (Norvasc) 5 mg tablet, Take 5 mg by mouth in the morning., Disp: , Rfl: Dulera 100-5 mcg/actuation inhaler, , Disp: , Rfl: glipiZIDE XL (Glucotrol XL) 10 mg 24 hr tablet, Take 10 mg by mouth in the morning., Disp: , Rfl: insulin glargine (Lantus Solostar U-100 Insulin) 100 unit/mL (3 mL) injection pen, Inject 20 Units under the skin., Disp: , Rfl: Januvia 100 mg tablet, Take 100 mg by mouth in the morning., Disp: , Rfl: metFORMIN (Glucophage) 500 mg tablet, Take 500 mg by mouth every 12 (twelve) hours., Disp: , Rfl: OXcarbazepine (Trileptal) 150 mg tablet, Take 150 mg by mouth in the morning and at bedtime., Disp: , Rfl: oxyCODONE (Roxicodone) 5 mg immediate release tablet, , Disp: , Rfl: prazosin (Minipress) 1 mg capsule, Take 1 mg by mouth in the morning., Disp: , Rfl: rOPINIRole (Requip) 4 mg tablet, Take 4 mg by mouth at bedtime., Disp: , Rfl: sertraline (Zoloft) 25 mg tablet, Take 25 mg by mouth in the morning., Disp: , Rfl: tiZANidine (Zanaflex) 4 mg tablet, , Disp: , Rfl: Allergies: Allergies Allergen Reactions Ibuprofen Anaphylaxis Naproxen Anaphylaxis Nsaids (Non-Steroidal Anti-Inflammatory Drug) Anaphylaxis, Other, Shortness of breath and Swelling Aspirin Other Oxaprozin Unknown Tramadol Other Reaction(s): diarrhea, nausea, cold sweats Exam: Vitals reviewed: Temp: [36.7 ???C (98 ???F)] 36.7 ???C (98 ???F) Heart Rate: [73] 73 BP: (130)/(83) 130/83 No intake/output data recorded. No intake/output data recorded. Accompanied (more content not included)... [facility] 11-19-2023 History of Present illness Narrative Associated Problem(s): Low back pain of thoracolumbar region with sciatica Chronic ongoing, progressively worsening, no improvement/relief with current regimen - using lyrica, trileptal, oxycodone. Was following Pain Clinic and had pain injections with no relief. Pain is more or less persistent, with radiculopathy bilaterally, worse on left side. MRI thoracic spine 05/30 - sig abnormality noted MRI LS spine 06/29 - B/l foraminal narrowing L5-S1, moderate disc herniation. Increase Oxycodone to 10 mg QID as needed for pain. Patient to follow up with NS in 2 days. Associated Problem(s): Primary hypertension (CMS/HCC) Above goal today but was doing well on amlodipine. Likely due to poorly controlled pain. C/w same dose for now. Asked to maintain home BP log and bring it next appt. Associated Problem(s): Uncontrolled type 2 diabetes mellitus with hyperglycemia ([facility]) Most recent labs: hemoglobin A1C 11 Average FSBS range from BGs are running consistent with Hgb A1C No episode of hypoglycemia No medication adverse effects reported by the patient. Patient educated on lifestyle modifications, dietary restrictions, signs and symptoms of hypoglycemia/hyperglycemia and importance of eating regular consistent meals. Stressed upon importance of checking blood glucose at home and bring blood glucose log to appointments. All questions, concerns answered and addressed. Encouraged to call office if persistent hypoglycemia/hyperglycemia on home glucose monitoring noted. Patient is agreeable to start using Long acting insulin. - Add lantus 20 units at bedtime. Follow up in one month with home blood glucose log. Subjective Patient ID: Bhavesh Cárdenas is a 48 y.o. male who presents for No chief complaint on file.. Patient did not use [employer] because he could not pay for it. He reports his blood glucose are still above goal and on average 190-250 Patient reports worsening pain in his back. His pain is worse in thoracic and lumbar spine. Pain is persistent with periods of electric shock like sensation reverberating throughout his body. Current regimen is not quite working for him. He has an appointment with NS in 2 days. He reports urinary urgency and has had a episodes of incontinence. He is however, still able to feel the urge to urinate. Current Outpatient Medications on File Prior to Visit Medication Sig Dispense Refill albuterol HFA 90 mcg/act inhaler Inhale 2 puffs every 4 (four) hours if needed for wheezing 8.5 g 3 amLODIPine (Norvasc) 5 MG tablet Take 1 tablet (5 mg) by mouth in the morning. 90 tablet 0 glipiZIDE XL (Glucotrol XL) 10 MG 24 hr tablet Take 10 mg by mouth in the morning. Januvia 100 MG tablet Take 100 mg by mouth in the morning. metFORMIN (Glucophage) 1000 MG tablet Take 1 tablet (1,000 mg) by mouth in the morning and 1 tablet (1,000 mg) in the evening. Take with meals. 180 tablet 1 OXcarbazepine (Trileptal) 300 MG tablet Take 300 mg by mouth in the morning and 300 mg before bedtime. pregabalin (Lyrica) 200 MG capsule Take 200 mg by mouth in the morning and 200 mg in the evening and 200 mg before bedtime. rOPINIRole (Requip) 4 MG tablet Take 1 tablet (4 mg) by mouth at bedtime 30 tablet 2 sertraline (Zoloft) 50 MG tablet Take 50 mg by mouth in the morning. tiZANidine (Zanaflex) 4 MG tablet Take 1 tablet by mouth every 8 (eight) hours if needed traZODone (Desyrel) 100 MG tablet Take 1 tablet by mouth at bedtime [DISCONTINUED] oxyCODONE (Roxicodone) 5 MG immediate release tablet Take 1 tablet (5 mg) by mouth every 6 (six) hours if needed for severe pain 120 tablet 0 [DISCONTINUED] phentermine (Adipex-P) 37.5 MG tablet Take 1 tablet (37.5 mg) by mouth in the morning. Take before meals. 30 tablet 0 No current facility-administered medications on file prior to visit. Allergies Allergen Reactions Ibuprofen Anaphylaxis Naproxen Anaphylaxis Nsaids Anaphylaxis, Swelling and Shortness of breath Aspirin Unknown Oxaprozin Unknown Tramadol Other Reaction(s): diarrhea, nausea, cold sweats Review of System All systems negative except as mentioned in HPI. Visit Vitals BP 140/90 (BP Location: Right arm, Patient Position: Sitting, BP Cuff Size: Large adult) Pulse 74 Temp 98.4 F (Tympanic) Ht 5' 4 Wt 240 lb SpO2 98% BMI 41.20 kg/m Smoking Status Never BSA 2.22 m @LABRESULTS@ No images are attached to the encounter. Objective Morbidly obese, patient reports poorly controlled pain. Physical Exam General: morbidly obese, uncomfortable and in pain Resp: Normal RR, CTA b/l CVS: Normal HR, No mumur noted. Neuro: AAOX 3, moving all extremities. Psych: Calm, co operative, no HI/SI. Back: Tenderness midine in thoaco lumbar spine. Paraspinal muscle tenderness bilaterally, worse on left side. Assessment/Plan Problem List Items Addressed This Visit Uncontrolled type 2 diabetes mellitus with hyperglycemia (CMS/HCC) - Primary Most recent labs: hemoglobin A1C 11 Average FSBS range from BGs are running consistent with Hgb A1C No episode of hypoglycemia No medication adverse effects reported by the patient. Patient educated on lifestyle modifications, dietary restrictions, signs and symptoms of hypoglycemia/hyperglycemia and importance of eating regular consistent meals. Stressed upon importance of checking blood glucose at home and bring blood glucose log to appointments. All questions, concerns answered and addressed. Encouraged to call office if persistent hypoglycemia/hyperglycemia on home glucose monitoring noted. Patient is agreeable to start using Long acting insulin. - Add lantus 20 units at bedtime. Follow up in one month with home blood glucose log. Primary hypertension (CMS/HCC) Above goal today but was doing well on amlodipine. Likely due to poorly controlled pain. C/w same dose for now. Asked to maintain home BP log and bring it next appt. Low back pain of thoracolumbar region with sciatica Chronic ongoing, progressively worsening, no improvement/relief with current regimen - using lyrica, trileptal, oxycodone. Was following Pain Clinic and had pain injections with no relief. Pain is more or less persistent, with radiculopathy bilaterally, worse on left side. MRI thoracic spine 05/30 - sig abnormality noted MRI LS spine 06/29 - B/l foraminal narrowing L5-S1, moderate disc herniation. Increase Oxycodone to 10 mg QID as needed for pain. Patient to follow up with NS in 2 days. Other Visit Diagnoses Chronic neck and back pain Relevant Medications oxyCODONE (Roxicodone) 5 MG immediate release tablet No follow-ups on file. documented in this encounter [facility] 09-13-2023 Evaluation note Encounter Date Diagnosis Assessment [...] him. He was treated with pain management [place] years ago did not like it he [...] M16.11) Sep, Lumbar spondylosis (ICD-10 - M47.816) [facility] Other 10-26-2023 Evaluation note* Encounter Date Diagnosis [...] rash near eyes, eye pain, vision changes. [facility] Other 09-27-2023 Miscellaneous Notes* Telephone Encounter - [...] Rose Marie Acosta RN documented in this [facility]07-10-2023 Miscellaneous Notes* Telephone Encounter - Lori Woody RN - 04/16/2023 11:19 AM EDT Refill request sent to the provider documented in this [facility]06-21-2023 Miscellaneous Notes* Telephone Encounter - Lori Woody RN - 03/28/2023 2:37 PM EDT Weight entered in Epic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 Contac t Referred To Contact [facility] Diagnoses Chronic bilateral low back pain without sciatica Chronic pain syndrome Procedures CONSULT TO PHYSICAL THERAPY PHYSICAL THERAPY EVALUATION [facility] COM[facility]X 45 MINS Jaqueline Kb, DO [address] [place] [address] [facility] [place] [address] [place] [address] Referral ID Status Reason Start Date Expiration Date Visits Requested Visits Authorized [id number] Pending Review Auto-Generat ed Referral 11/15/2022 11/15/2023 1 1 Reason 09/28/22 @ 11:30am Evaluate and Treat R Hip Arthropathy Diagnosis 1 Trochanteric bursiti s of right hip (M70.61) Referral Organization [facility] [place] urosurgery Referring Provider First Name Francis Referring Provider Last Name Cortney Referring Provider Specialty Neurologica l Surgery Referred Organization [facility] Referred Provider Milton Valentine II Referred Address [address],[place],[address] Referred Provider Specialty Orthopedic S urgery Referral Priority Routine Referral Appointment Date 2022-09-28 [facility] 01:18:44 PM >Received today and sent P2P [facility] 09/28/2022 02:47:43 PM >Patient has been scheduled [facility] 10/04/2022 08:58:01 AM >Consult notes not locked yet [facility] 10/06/2022 11:26:02 AM >Consult notes not locked yet [facility] 10/10/2022 09:04:40 AM >Consult notes not locked yet [facility] 10/11/2022 09:00:47 AM >Consult notes not locked yet [facility] 10/12/2022 08:14:26 AM >Consult notes not locked yet [facility] 10/13/2022 12:17:19 PM >Office notes not locked yet [facility] 10/16/2022 10:10:49 AM >Sent telephone encounter to referring physician to let them know that the consult letter is ready for their review Specialty Diagnoses / Procedures Referred By Contac t Referred To Contact [facility] [place] Diagnoses Chronic bilateral low back pain without sciatica Procedures CONSULT TO [facility] ([facility]RONIC PAIN) OFFICE/OUTPATIENT [facility] 60-74 MINUTES Olayinka Boyd PA-C [address] [place] [address] Referral ID Status Reason Start Date Expiration Date Visits Requested Visits Authorized [id number] Pending Review PCP Requested Referral 10/19/2022 10/19/2023 [...] 2 [place] [address] [place] [address] Xr Imaging Referral ID Status Reason Start Date Expiration Date V isits Requested Visits Authorized [id number] Closed Auto-Generate d Referral 10/30/2022 11/29/2023 1 1 Specialty Diagnoses / Procedures Referred By Contac t Referred To Contact [facility] [place] Diagnoses Chronic bilateral low back pain without sciatica Procedures CONSULT TO [facility] (CHRONIC PAIN) OFFICE/OUTPATIENT [facility] 60-74 MINUTES Olayinka Boyd PA-C [address] [place] [address] Referral ID Status Reason Start Date Expiration Date Visits Requested Visits Authorized [id number] Pending Review PCP Requested Referral 10/19/2022 10/19/2023 1 1 Reason Comments pre inj phone call Reason Comments Consult Specialty Diagnoses / Procedures Referred By Contac t Referred To Contact [facility] [place] Diagnoses Chronic pain syndrome Procedures CONSULT TO [facility] (CHRONIC PAIN) OFFICE/OUTPATIENT [facility] 60-74 MINUTES Kb Lorenzo DO [address] [place] [address] Referral ID Status Reason Start Date Expiration Date Visits Requested Visits Authorized [id number] Pending Review PCP Requested Referral 11/15/2022 11/15/2023 1 1 Reason Comments Patient Question Reason Comments Electronic Communication Reason Onset Date Comments Refill Request 04/16/2023 Reason Onset Date Comments Refill Request 07/04/2023 Trazodone Rx Refill Request 07/05/2023 Refill Request 07/06/2023 Reason Comments Follow-up Care Teams (unrecognized sec tion and content) Team Status: Inactive Member Role Status Dates Carmen Wheatley MD Primary Care Provider Active Milotn Valentine II, MD Attending Provider Active Team Status: Active Member Role Status Dates Carmen Wheatley MD Primary Care Provider Active 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 Attending Provider Active Team Status: Inactive Member Role Status Dates Shaikh Moi MD Primary Care Provider Active LARRY López-BC Attending Provider, Referri ng Provider Active Team Status: Inactive Member Role Status Dates Shaikh Moi MD Primary Care Provider Active Kristina Delgado 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 Start Date End Date Shaikh Prater MD [address] [facility] [place] [address] PCP - General Internal Medicine 11/19/23 Goals (unrecognized section and content) Goals may be documented in a n alternate section Source Comments (unrecognize d section and content) In the event this informatio n is protected by the Federal Confidentiality of Alcohol and Drug Abuse Patient Records regulations: The Federal rules restrict any use of the information to criminally investigate or prosecute any alcohol or drug abuse patient.[facility] Hospital[facility] the event this information is protected by the Federal Confidentiality of Alcohol and Drug Abuse Patient Records regulations: The Federal rules restrict any use of the information to criminally investigate or prosecute any alcohol or drug abuse patient.[facility] HospitalIn the event this information is protected by the Federal Confidentiality of Alcohol and Drug Abuse Patient Records regulations: The Federal rules restrict any use of the information to criminally investigate or prosecute any alcohol or drug abuse patient.[facility] HospitalIn the event this information is protected by the Federal Confidentiality of Alcohol and Drug Abuse Patient Records regulations: The Federal rules restrict any use of the information to criminally investigate or prosecute any alcohol or drug abuse patient.[facility] HospitalIn the event this information is protected by the Federal Confidentiality of Alcohol and Drug Abuse Patient Records regulations: The Federal rules restrict any use of the information to criminally investigate or prosecute any alcohol or drug abuse patient.[facility] HospitalIn the event this information is protected by the Federal Confidentiality of Alcohol and Drug Abuse Patient Records regulations: The Federal rules restrict any use of the information to criminally investigate or prosecute any alcohol or drug abuse patient.[facility] HospitalIn the event this information is protected by the Federal Confidentiality of Alcohol and Drug Abuse Patient Records regulations: The Federal rules restrict any use of the information to criminally investigate or prosecute any alcohol or drug abuse patient.[facility] HospitalIn the event this information is protected by the Federal Confidentiality of Alcohol and Drug Abuse Patient Records regulations: The Federal rules restrict any use of the information to criminally investigate or prosecute any alcohol or drug abuse patient.[facility] HospitalIn the event this information is protected by the Federal Confidentiality of Alcohol and Drug Abuse Patient Records regulations: The Federal rules restrict any use of the information to criminally investigate or prosecute any alcohol or drug abuse patient.[facility] HospitalIn the event this information is protected by the Federal Confidentiality of Alcohol and Drug Abuse Patient Records regulations: The Federal rules restrict any use of the information to criminally investigate or prosecute any alcohol or drug abuse patient.[facility] HospitalIn the event this information is protected by the Federal Confidentiality of Alcohol and Drug Abuse Patient Records regulations: The Federal rules restrict any use of the information to criminally investigate or prosecute any alcohol or drug abuse patient.[facility] HospitalIn the event this information is protected by the Federal Confidentiality of Alcohol and Drug Abuse Patient Records regulations: The Federal rules restrict any use of the information to criminally investigate or prosecute any alcohol or drug abuse patient.[facility] HospitalIn the event this information is protected by the Federal Confidentiality of Alcohol and Drug Abuse Patient Records regulations: The Federal rules restrict any use of the information to criminally investigate or prosecute any alcohol or drug abuse patient.[facility] HospitalIn the event this information is protected by the Federal Confidentiality of Alcohol and Drug Abuse Patient Records regulations: The Federal rules restrict any use of the information to criminally investigate or prosecute any alcohol or drug abuse patient.[facility] HospitalIn the event this information is protected by the Federal Confidentiality of Alcohol and Drug Abuse Patient Records regulations: The Federal rules restrict any use of the information to criminally investigate or prosecute any alcohol or drug abuse patient.[facility] HospitalIn the event this information is protected by the Federal Confidentiality of Alcohol and Drug Abuse Patient Records regulations: The Federal rules restrict any use of the information to criminally investigate or prosecute any alcohol or drug abuse patient.[facility] (unrecognized sect ion and content) No Status Records FoundNo Status Records FoundNo Status Records FoundNo Status Records FoundNo Status Records FoundNo Status Records Found INFORMATION SOURCE (unrecogn ized section and content) DATE CREATED AUTHOR 03/16/2023 [facility] DATE CREATED AUTHOR AUTHOR'S ORGANIZ ATION 03/29/2023 [facility] DATE CREATED AUTHOR AUTHOR'S ORGANIZ ATION 05/27/2023 [facility] DATE CREATED AUTHOR AUTHOR'S ORGANIZ ATION 11/16/2023 [facility] DATE CREATED AUTHOR AUTHOR'S ORGANIZ ATION 05/30/2024 [facility] DATE CREATED AUTHOR AUTHOR'S ORGANIZ ATION 06/13/2024 [facility] EPIC FOR RECORDS PERTAINING TO PATIENTS WHO ARE [...] BE BASED ON THE PRIMARY CLINICAL RECORDS. [employer] [facility]. provides no warranty or guarantee of the accuracy or completeness of information in this document.
[2024-06-27 15:52] LABS: Creatinine Urine Random 212.32 mg/dL (20.00-300.00); Microalbum Creatinine Ratio Ur 14.6 mg/g (0.0-29.9); Microalbumin Urine Random 3.1 mg/dL (<=30.0)
== END 2024-06-27 14:48 | disposition home or self-care (01) ==
LOC: LAB 14:48
DX: Z79.4 Long term (current) use of insulin (principal); E11.65 Type 2 diabetes mellitus with hyperglycemia
CPT/HCPCS: 82043; 82570

== ENCOUNTER 2024-08-19 10:22 | Outpatient (OUT) | payer MEDICAID, SELFPAY ==
[2024-08-19 10:33] LABS: Basophils Absolute Auto 0.1 10^3/uL (0.0-0.1); Basophils Percent Auto 0.6 % (0.2-2.0); Eosinophils Absolute Auto 0.2 10^3/uL (0.0-0.7); Eosinophils Percent Auto 2.2 % (0.9-7.0); Hemoglobin 14.2 g/dL (14.0-18.0); Immature Granulocytes Abs Auto 0.05 10^3/uL (0.00-0.03); Immature Granulocytes Pct Auto 0.5 % (0.0-0.5); Lymphocytes Absolute Auto 2.7 10^3/uL (1.2-3.8); Lymphocytes Percent Auto 24.1 % (20.5-60.0); Mean Corpuscular HGB Conc 34.6 g/dL (29.9-35.2); Mean Corpuscular Hemoglobin 30.6 pg (25.9-34.0); Mean Corpuscular Volume 88.4 fL (80.0-94.0); Mean Platelet Volume 10.1 fL (9.5-13.5); Monocytes Absolute Auto 0.8 10^3/uL (0.3-0.8); Neutrophils Absolute Auto 7.2 10^3/uL (1.4-6.5); Neutrophils Percent Auto 65.6 % (43.0-75.0); Platelet Count 336 10^3/uL (150-450); Red Blood Count 4.64 10^6/uL (4.70-6.10); Red Cell Distribution Width 13.2 % (11.0-15.0)
--- OUTSIDE RECORDS SUMMARY | 2024-08-19 10:42 | XMS_ITS | CCD ---
Author Organization [facility] Care Team Providers Care Lens Matcher Name Role Phone Nahid Gu Unavailable MD Carmen Wheatley Primary Care Provider MD Milton Valentine II Attending Provider [phone] Unavailable Primary Care Provider UnavailShaik Nichols MDh Primary Care Provider Francis Barr Unavailable Milton Valentine II Unavailable [phone] Danny [facility] Kristina Mak Emergency Provider MD Masood Prater Primary Care Provider ARCELIA JUAREZ Admitting Unavailable FAWWAD, MEYER H Primary Care Unavailable ARCELIA JUAREZ Attending Unavailable DR WASHINGTON DURAN V Consulting Unavailable SLOAN .DORIS Consulting UnavailOleksandr Rocha, DR SUAREZ Admitting Unavailable ELLIE Rocha, DR SUAREZ Attending Unavailable JOSEPH ASHRAF Consulting [...] Admitting Unavailable FAWWAD, MEYER H Consulting Unavailable FAWWAJames, MEYER H Attending Unavailable DR DIANA GUZMÁN Consulting Unavailable FAWWAD, MEYER H Primary Care Unavailable FAWWAD, MEYER H Admitting Unavailable FAWWAD, MEYER H Consulting Unavailable FAWWAD, MEYER H Attending Unavailable FAWWAD, MEYER H Primary Care Unavailable FAWWAD, MEYER H Admitting Unavailable TANKHA, BK Referring [facility] Primary Care Unavailable OLAYINKA BOYD Referring Unavailable TANKHA, KB Attending Unavailable [facility] Primary Care Unavailable SANTANA HARRIS Referring Unavailable FAWWAD, [facility] Primary Care Unavailable SANTANA HARRIS Referring Unavailable FAWCAD, [facility] Primary Care Unavailable SANTANA HARRIS Attending Unavailable OLAYINKA BOYD Attending Unavailable TANKHA, BK Attending Un[facility] Primary Care Unavailable WASHINGTON CASTELLANOS Attending Unavailable TANKHA, KB Referring Unavailable FAWCAD, [facility] Primary Care Unavailable TANKHA, KB Admitting Unavailable TANKHA, KB Attending [facility]available [facility] Primary Care Unavailable MD [facility] Primary Care Provider [facility] Tracy Attending Provider Aliza GREEN, Terri Colvin Attending Unavailable Jazmin [facility] Tracy Referring Provider Carmen Washington Unavailable MD [facility] Primary Care Provider [phone] Jaz[facility] Tracy Attending Provider Jazmin [facility] Tracy Referring Provider STEVO Wu Tracy Attending Provider Kaminiva tee Delgado [facility] Kristina E Emergency Provider Moi GREEN, [facility] Primary Care Provider Windnagel, Tracy Admitting Unavailable Windnagel, Tracy Attending Unavailable Erinnapeter, Tracy Referring Unavailable [facility] Primary Care [facility] Care Unavailable Windnagel, Tracy Admitting Unavailable Windnagel, Tracy Attending Unavailable [facility] Care Unavailable Bullimore, Kristina E Admitting Unavailable Bullimore, Kristina E Attending Unavailable [facility] Care Unavailable Bullimore, Kristina E Admitting Unavailable Bullimore, Kristina E Attending Unavailable [facility], [facility] Care Unavailable Windnagel, Tracy Admitting Unavailable Windnagel, Tracy Attending Unavailable Shaikh Prater MD Primary Care Provider ANANT SPANN Attending Unavailable DONAL, DANNI Referring Unavailable DONAL, DANNI Attending Unavailable OVITT, DUNIA Attending Unavailable BHAVESH JAMES Attending Unavailable DONAL, DANNI Referring Unavailable OVITT, DUNIA Referring Unavailable DONAL, DANNI Referring Unavailable J Luis Cárdenas MD Primary Care Provider Fabi RICHARDS, Denis Unavailable FAWWAD, MEYER Attending Unavailable FAWWAD, MEYER Attending Unavailable FAWWAD, MEYER Attending Unavailable FAWWAD, MEYER Attending Unavailable FAWWAD, MEYER Attending Unavailable FAWWAD, MEYER Attending Unavailable DUNLAP, DENIS Attending Unavailabl e ANNIE BRISCOE Attending Unavailable DUNLAP, DENIS Attending Unavailabl e FABI, DENIS Attending UnavailJ Luis Schmitz MD Primary Care Provider [phone] Unallocated MD, [facility] Provider Primary Care Provi sony Allergies Allergy Classification Reported Allergen(s) Allergy Type Date of Onset Reaction(s) Facility (20 sources) Ibuprofen; Translations: [IBUPROFEN] Drug Allergy 3 Anaphylaxis [facility] Other (20 sources) NSAIDs Propensity to adverse reactions 3 Anaphylaxis, Swelling, Shortness of breath [facility] Non-steroidal anti-inflammato ry agent; Translations: [NSAIDS (NON-STEROIDAL ANTI-INFLAMMATO RY DRUG)] Drug Allergy 3 Anaphylaxis, Other: See Comments, Shortness of Breath, Swelling [facility] (5 sources) NSAIDS (Non-Steroidal Anti-Inflamma; Translations: [NSAIDS (Non-Steroidal Anti-Inflamma] Allergy to substance 3 Anaphylaxis [facility] (1 source) NSAIDs Drug allergy (disorder) [facility] Rep[facility] (16 sources) Aluminum aspirin; Translations: [ASPIRIN] Drug Allergy 3 Unknown [facility] (16 sources) Naproxen; Translations: [NAPROXEN] Drug Allergy 3 Anaphylaxis [facility] (16 sources) oxaprozin; Translations: [OXAPROZIN] Drug Allergy 3 Unknown [facility] (16 sources) traMADol; Translations: [TRAMADOL] Drug Allergy 3 [facility] (1 source) Ibuprofen Drug Allergy 3 [facility] Repository (1 source) ALLERGIES NOT ON FILE; Translations: [ALLERGIES NOT ON FILE] Propensity to adverse reactions (disorder) [facility] Repository Medications Current Medications Medication Drug Class(es) Dates Sig (Normalized) Sig (Original) Albuterol-Budeson felipe (Airsupra) 90-80 MCG/ACT aerosol (10 sources) Start: 05-27-2024 take 2 puff(s) by inhalation every six hours Albuterol-Budesoni de (Airsupra) 90-80 MCG/ACT aerosol Indications: Moderate persistent asthma without complication (CMS/HCC) Inhale 2 puffs every 6 (six) hours if needed (wheezing, shortness of breath) 10.7 g 2 05/27/2024 Active amLODIPine 5 mg oral tablet (16 sources) Dihydropyridine Calcium Channel Roland Start: 10-29-2023 End: 01-18-2025 take 1 tablet by mouth once daily amLODIPine (Norvasc) 5 MG tablet Indications: Primary hypertension (CMS/HCC) Take 1 tablet (5 mg) by mouth Daily 90 tablet 1 07/22/2024 01/18/2025 Active baclofen 20 mg oral tablet (20 sources) gamma-Aminobutyric Acid-ergic Agonist Start: 01-27-2023 Baclofen Active MG TABLET January 26, 2023 [...] 20 mg by mouth three times daily. Continuous Glucose Sensor (FreeStyle Liv 2 Sensor) [facility] (10 sources) Start: 08-05-2024 End: 08-05-2025 Continuous Glucose Sensor (FreeStyle Liv 2 Sensor) [facility] Indications: Type 2 diabetes mellitus without complication, with long-term current use of insulin (CMS/HCC) , Uncontrolled type 2 diabetes mellitus with hyperglycemia (CMS/HCC) Inject 1 each under the skin continuously 1 each 11 08/05/2024 08/05/2025 Active Start: 06-26-2024 End: 08-04-2024 Continuous Glucose Sensor (F reeStyle Liv 2 Sensor) [facility] Indications: Type 2 diabetes mellitus without complication, with long-term current use of insulin (CMS/HCC) , Uncontrolled type 2 diabetes mellitus with hyperglycemia (CMS/HCC) Inject 1 each under the skin continuously 1 each 11 06/26/2024 08/04/2024 Discontinued (Reorder) Start: 06-26-2024 End: 06-26-2025 Continuous Glucose Sensor (F reeStyle Liv 2 Sensor) [facility] Indications: Type 2 diabetes mellitus without complication, with long-term current use of insulin (CMS/HCC) , Uncontrolled type 2 diabetes mellitus with hyperglycemia (CMS/HCC) Inject 1 each under the skin continuously 1 each 11 06/26/2024 06/26/2025 Active cyclobenzaprine (1 source) Muscle Relaxant Flexeril Active [...] on above: Take 1 capsule by mo ut three times daily for 90 days. Take [...] A MEAL Oral for 30 Days Active 3 ml insulin glargine 100 unt/ml pen injector (11 sources) Insulin Analog Start: 07-14-2024 End: 01-10-2025 insulin glargine (Lantus SoloStar) 100 UNIT/ML pen Indications: Uncontrolled type 2 diabetes mellitus with hyperglycemia (CMS/HCC) Inject 40 Units under the skin at bedtime 3 mL 11 07/14/2024 01/10/2025 Active Start: 06-26-2024 End: 07-08-2024 insulin glargine (Lantus Aidee oStar) 100 UNIT/ML pen Indications: Uncontrolled type 2 diabetes mellitus with hyperglycemia (CMS/HCC) Inject 40 Units under the skin at bedtime 06/26/2024 07/08/2024 Discontinued (Reorder) lidocaine 0.05 mg/mg medicated patch (1 source) [...] mg oral tablet (20 sources) Biguanide Start: 06-24-2024 End: 12-21-2024 take 1 tablet by mouth in the morning metFORMIN (Glucophage) 1000 MG tablet Indications: Type 2 diabetes mellitus without complication, without long-term current use of insulin (CMS/HCC) Take 1 tablet (1,000 mg) by mouth in the morning and 1 tablet (1,000 mg) in the evening. Take with meals. 180 tablet 1 06/24/2024 12/21/2024 Active Start: 10-24-2023 End: 04-21-2024 take 1 tablet by mouth in the morning metFORMIN (Glucophage) 1000 MG tablet Indications: Type 2 diabetes mellitus without complication, without long-term current use of insulin (CMS/HCC) Take 1 tablet (1,000 mg) by mouth [...] 2023 12:00am OXcarbazepine 300 mg oral tablet (15 sources) Anti-epileptic Agent Start: 06-11-2024 take 1 tablet by mouth once daily in the morning, then take 1 tablet by mouth at bedtime OXcarbazepine (Trileptal) 300 MG tablet Indications: Paresthesia Take 1 tab (300mg) PO QAM and 1 1/2 tabs (450mg) PO at bedtime 225 tablet 2 06/11/2024 Active Start: 08-20-2023 take 1 tablet by nirav th in the morning OXcarbazepine (Trileptal) 300 MG tablet Take 300 mg by mouth in the morning and 300 mg before bedtime. 0 08/20/2023 Active oxyCODONE hydrochloride 5 mg oral tablet (19 sources) Opioid Agonist Start: 07-15-2024 End: 08-14-2024 take 2 tablets by mouth every eight hours for pain oxyCODONE (Roxicodone) 5 MG immediate release tablet Indications: Chronic pain syndrome Take 2 tablets (10 mg) by mouth every 8 (eight) hours if needed for severe pain 180 tablet 07/15/2024 08/14/2024 Active Start: 11-19-2023 End: 12-19-2023 take 2 tablets [...] ve MG TABLET January 26, 2023 11:00pm prazosin 2 mg oral capsule (10 sources) alpha-Adrenergic Roland Start: 06-11-2024 take 2 capsules by mouth once daily prazosin (Minipress) 2 MG capsule Take 4 mg by mouth Daily 06/11/2024 Active pregabalin 200 mg oral capsule (16 sources) Start: 04-21-2024 End: 10-26-2024 take 1 capsule by mouth in the morning, then take 1 capsule by mouth in the evening, then take 1 capsule by mouth at bedtime pregabalin (Lyrica) 200 MG capsule Indications: Chronic neck and back pain Take 1 capsule (200 mg) by mouth in the morning and 1 capsule (200 mg) in the evening and 1 capsule (200 mg) before bedtime. 270 capsule 07/28/2024 10/26/2024 Active Start: 08-23-2023 take 1 capsule by mo uth in the morning, then take 1 capsule by mouth in the evening, then take 1 capsule by mouth at bedtime pregabalin (Lyrica) 200 MG capsule Take 200 mg by mouth in the morning and 200 mg in the evening and 200 mg before bedtime. 0 08/23/2023 Active rOPINIRole 4 mg oral tablet (20 sources) Nonergot Dopamine Agonist Start: 01-15-2024 End: 01-11-2025 take 1 tablet by mouth at bedtime rOPINIRole (Requip) 4 MG tablet Indications: Restless Leg Syndrome Take 1 tablet (4 mg) by mouth at bedtime 90 tablet 1 07/15/2024 01/11/2025 Active Start: 09-18-2023 End: 12-17-2023 take 1 tablet [...] Requip Active sertraline 50 mg oral tablet (15 sources) Serotonin Reuptake Inhibitor Start: 3 take 1 tablet by mouth in the morning sertraline (Zoloft) 50 MG tablet Take 50 mg by mouth in the morning. 08/22/2023 Active SITagliptin 100 mg oral tablet (5 sources) Dipeptidyl Peptidase 4 Inhibitor Start: 3 take 1 tablet by mouth in the morning Januvia 100 MG tablet Take 100 mg by mouth in the morning. 0 09/10/2023 Active Tirzepatide (Mounjaro) 5 MG/0.5ML solution auto-injector (5 sources) Start: 4 Tirzepatide (Mounjaro) 5 MG/0.5ML solution auto-injector Indications: Type 2 diabetes mellitus without complication, with long-term current use of insulin (CMS/HCC) , Uncontrolled type 2 diabetes mellitus with hyperglycemia (CMS/HCC) Inject 5 mg under the skin 1 (one) time per week 0.5 mL 3 07/22/2024 Active tiZANidine 4 mg oral tablet (15 sources) Central alpha-2 Adrenergic Agonist Start: 4 take 1 tablet by mouth twice daily tiZANidine (Zanaflex) 4 MG tablet Indications: Muscle spasm 1 tablet orally bid 180 tablet 2 06/11/2024 Active Start: 09-18-2023 take 1 tablet by nirav th every eight hours as needed tiZANidine (Zanaflex) 4 MG tablet Take 1 tablet by mouth every 8 (eight) hours if needed 0 09/18/2023 Active traZODone hydrochloride 50 mg oral tablet (10 sources) Serotonin Reuptake Inhibitor Start: 07-06-2023 End: 09-04-2023 take 1 tablet by mouth once daily [...] Drug Class(es) Dates Sig (Normalized) Sig (Original) [id number] 200 actuat albuterol 0.09 mg/actuat metered dose inhaler (20 sources) beta2-Adrenergic Agonist Start: 03-16-2024 End: 07-22-2024 take 2 puff(s) by inhalation every four hours for wheezing albuterol HFA 90 mcg/act inhaler Indications: Moderate persistent asthma without complication (CMS/HCC) Inhale 2 puffs every 4 (four) hours if needed for wheezing 8.5 g 3 03/16/2024 07/22/2024 Discontinued (Therapy completed) Start: 11-08-2023 End: 12-08-2023 take 2 puff(s) [...] NEEDED FOR SHORTNESS OF BREATH OR WHEEZING amoxicillin 875 mg / clavulanate 125 mg oral tablet (13 sources) Penicillin-class Antibacterial Start: 03-24-20 End: 12-10-19 take 1 tablet by mouth every twelve hours Amoxicillin-Pot Clavulanate 875-125 MG 1 tablet Orally every 12 hrs for 7 days Mar, Not-Taking/PRN Comment on above: Take by mouth q 12 H R. 60 actuat budesonide 0.09 mg/actuat dry powder inhaler (8 sources) Corticosteroid Start: 03-24-20 take 2 puff(s) by inhalation twice daily as needed Pulmicort Flexhaler 90 MCG/ACT 2 puffs Inhalation Twice a day for 30 days Mar, Not-Taking/PRN 60 actuat budesonide 0.16 mg/actuat / formoterol fumarate 0.0045 mg/actuat metered dose inhaler (13 sources) Corticosteroid, beta2-Adrenergic Agonist Start: 01-29-20 End: 11-04-19 take 2 puff(s) by inhalation in the morning budesonide-formoter ol (Symbicort) 160-4.5 MCG/ACT inhaler Indications: Moderate persistent asthma without complication (CMS/HCC) Inhale 2 puffs in the morning and 2 puffs before bedtime. 3 each 1 08/05/2024 08/06/2024 Discontinued (Reorder) codeine phosphate 2 mg/ml / guaiFENesin 20 mg/ml oral solution (8 sources) Opioid Agonist Start: 03-24-20 take 10 mL by mouth every four to six hours as needed Cheratussin AC 100-10 MG/5ML 10 ml Orally every 4-6 hrs for 7 days Mar, Not-Taking/PRN 60 actuat formoterol fumarate 0.005 mg/actuat / mometasone furoate 0.1 mg/actuat metered dose inhaler (20 sources) Corticosteroid, beta2-Adrenergic Agonist Start: 09-27-20 take 2 puff(s) by inhalation twice daily [...] (BMI) of 40.0 to 44.9 in adult ([facility]) Take 1 tablet (37.5 mg) [...] 4-6 hrs for 7 days Mar, Not-Taking Tirzepatide (Mounjaro) 2.5 MG/0.5ML solution auto-injector (5 sources) Start: 07-14-2024 End: 07-22-2024 inject 2.5 mg by subcutaneous injection every week Tirzepatide (Mounjaro) 2.5 MG/0.5ML solution auto-injector Indications: Type 2 Diabetes Mellitus Inject 2.5 mg under the skin 1 (one) time per week for 28 days 0.5 mL 3 07/14/2024 07/22/2024 Discontinued (Dose adjustment) Start: 07-14-2024 End: 08-11-2024 inject 2.5 mg by subcutaneous injection every week Tirzepatide (Mounjaro) 2.5 MG/0.5ML solution auto-injector Indications: Type 2 Diabetes Mellitus Inject 2.5 mg under the skin 1 (one) time per week for 28 days 0.5 mL 3 07/14/2024 08/11/2024 Active Tirzepatide (Mounjaro) 5 MG/0.5ML solution pen-injector (6 sources) Start: 06-26-2024 End: 07-22-2024 Tirzepatide (Mounjaro) 5 MG/0.5ML solution pen-injector Indications: Type 2 diabetes mellitus without complication, with long-term current use of insulin (CMS/HCC) , Uncontrolled type 2 diabetes mellitus with hyperglycemia (CMS/HCC) Inject 5 mg under the skin 1 (one) time per week 0.5 mL 3 06/26/2024 07/22/2024 Discontinued (Reorder) Start: 06-26-2024 Tirzepatide (M ounjaro) 5 MG/0.5ML solution pen-injector Indications: Type 2 diabetes mellitus without complication, with long-term current use of insulin ([facility]) , Uncontrolled type 2 diabetes mellitus with hyperglycemia ([facility]) Inject 5 mg under the skin 1 (one) time per week 0.5 mL 3 06/26/2024 Active valACYclovir 1000 mg oral tablet (4 sources) [...] 03-05-2023 11-08-2023 Chronic Diabetes mellitus with complications (20 sources) Type 2 diabetes mellitus with hyperglycemia; Translations: [Type II diabetes mellitus uncontrolled] Onset: 12-21-2022 Chronic Diabetes mellitus without complication (20 sources) Type 2 diabetes mellitus without complications; Translations: [Type 2 diabetes mellitus without complication] Onset: 03-05-2023 09-24-2023 Chronic Disorders of lipid metabolism (18 sources) Hyperlipidemia; Translations: [Hyperlipidemia, unspecified] Onset: 09-24-2023 09-24-2023 Chronic Esophageal disorders (1 source) Gastro-esophageal reflux disease without esophagitis; Translations: [GERD WITHOUT ESOPHAGITIS] Onset: 03-05-2023 Chronic Essential hypertension (20 sources) Essential hypertension; Translations: [Essential (primary) hypertension] Onset: 10-16-2023 10-16-2023 Chronic Joint disorders and dislocations; trauma-related (9 sources) Derangement of right knee; Translations: [Unspecified internal derangement of right knee] Chronic Miscellaneous mental health disorders (2 sources) Pain disorder with psychological factor; Translations: [Pain disorder with related psychological factors] Onset: 12-28-2022 Chronic Mood disorders (12 sources) Major depressive disorder, single episode, in full remission; Translations: [Major depressive disorder] Onset: 03-05-2024 Chronic Osteoarthritis (20 sources) Arthritis of knee; Translations: [Unilateral primary osteoarthritis, right knee] Onset: 10-30-2022 Chronic Other aftercare (1 source) 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; Translations: [CHARGE MANAGER USE ORAL HYPOGLYCEMIC DX] Onset: 03-05-2023 Episodic Other connective tissue disease (1 source) Trochanteric bursitis, right hip Episodic Other diseases of veins and lymphatics (8 sources) Peripheral venous insufficiency; Translations: [Venous insufficiency (chronic) (peripheral)] Episodic Other hereditary and degenerative nervous system conditions (16 sources) Restless legs; Translations: [Restless legs syndrome] Onset: 09-24-2023 09-24-2023 Chronic Other nervous system disorders (20 sources) Chronic pain syndrome; Translations: [Chronic pain syndrome] Onset: 03-30-2023 Chronic Other nervous system disorders (3 sources) Other chronic pain; Translations: [OTHER CHRONIC PAIN] Onset: 10-30-2022 Chronic Other nervous system disorders (2 sources) Chronic pain syndrome; Translations: [Chronic pain syndrome] Onset: 02-13-2023 Chronic Other nervous system disorders (10 sources) Paresthesia; Translations: [Paresthesia of skin] Onset: 06-10-2024 06-10-2024 Episodic Other non-traumatic joint disorders (15 sources) Polyarthropathy; Translations: [Polyarthritis, unspecified] Onset: 09-24-2023 09-24-2023 Chronic Other non-traumatic joint disorders (1 source) Pain in right hip Episodic Other nutritional; endocrine; and metabolic disorders (17 sources) Metabolic syndrome X; Translations: [Metabolic syndrome X] Onset: 09-24-2023 09-24-2023 Chronic Other nutritional; endocrine; and metabolic disorders (18 sources) Severe obesity; Translations: [Morbid (severe) obesity due to excess calories] Onset: 10-16-2023 10-16-2023 Chronic Other nutritional; endocrine; and metabolic disorders (10 sources) Obesity; Translations: [Obesity, unspecified] Onset: 06-10-2024 06-10-2024 Chronic Other screening for suspected conditions (not mental disorders or infectious disease) (1 source) Encounter for screening for lipoid disorders; Translations: [ENC SCREENING FOR LIPOID DISORDERS] Onset: 12-29-2022 Episodic Other upper respiratory infections (1 source) Chronic sinusitis, unspecified; Translations: [CHRONIC SINUSITIS UNSPECIFIED] Onset: 10-24-2022 Chronic Residual codes; unclassified (12 sources) Hypersomnia; Translations: [Hypersomnia, unspecified] Onset: 11-19-2023 11-19-2023 Chronic Residual codes; unclassified (10 sources) Periodic limb movement disorder; Translations: [Periodic limb movement disorder] Onset: 03-06-2024 03-06-2024 Chronic Residual codes; unclassified (10 sources) Obstructive sleep apnea syndrome; Translations: [Obstructive sleep apnea (adult) (pediatric)] Onset: 06-10-2024 06-10-2024 Chronic Residual codes; unclassified (1 source) Sleep [...] (1 source) APPOINTMENT CANCELLED Unclassified (1 source) [facility] INJECT NONINSULN ANTIDIAB; Translations: [[facility] INJECT NONINSULN ANTIDIAB] Onset: 03-05-2023 Unclassified (3 [...] 07-14-2022 Episodic Other aftercare (1 source) Other exterminator (current) drug therapy; Translations: [OTH [facility] CURRENT DRUG THERAPY] Onset: 10-24-2022 Episodic Other aftercare (10 sources) Long-term current use of drug therapy; Translations: [Encounter for therapeutic drug level monitoring] Onset: 01-22-2024 01-22-2024 Episodic Other non-traumatic joint disorders (4 sources) Pain in right knee; Translations: [PAIN IN RIGHT KNEE] Onset: 07-13-2022 Episodic Other skin disorders (4 sources) Localized swelling, mass and lump, head; Translations: [LOCALIZED SWELLING MASS AND LUMP HEAD] Onset: 10-23-2022 Episodic Spondylosis; intervertebral disc disorders; other back problems (20 sources) Chronic low back pain; Translations: [Chronic bilateral low back pain without sciatica] Onset: 03-03-2023 Episodic Unclassified (1 source) LOW BACK PAIN, UNSPECIFIED; Translations: [LOW BACK PAIN, UNSPECIFIED] Onset: 08-18-2022 Results Test Name Value Interpretation Reference Range Facility Orders Onlyon 05-26-2024 Orders Only [id number] Bhavesh Cárdenas 1975 M Date Provider Department Center 05/26/2024 PHYLLIS TAM PAIN [facility] Family History Problem Relation Age of Onset Multiple sclerosis Father Prostate cancer Father Family Status - Relation Status Age at Father Normal [facility] Orders Onlyon 05-22-2024 Orders Only [id number] Bhavesh Cárdenas 1975 M Date Provider Department Center 05/22/2024 DEEPIKA LOVELACE MP PROC [facility] Family History Problem Relation Age of Onset Multiple sclerosis Father Prostate cancer Father Family Status - Relation Status Age at Father Normal [facility] Office Visiton 04-16-2024 Follow-up visit [id number] Bhavesh Cárdenas 1975 M Date Provider Department Center 04/16/2024 Cristel-MARIA INES ANANT DEONTE PAIN [facility] Family History Problem Relation Age of Onset Multiple sclerosis Father Prostate cancer Father Family Status - Relation Status Age at Father Level of Service:28901 NC OFFICE/OUTPATIENT ESTABLISHED MOD MDM 30 MIN Reason for Visit and Comments: Pain [136] - Chief complaint - pain from the neck all the way to the lower back that radiates through the groin area and down the legs [facility] Procedure Visiton 03-05-2024 Procedure Visit [id number] Bhavesh Cárdenas 1975 M Date Provider Department Center 03/05/2024 [id number] JAMES [facility] Eloise Heal Family History Problem Relation Age of Onset Multiple sclerosis Father Prostate cancer Father Family Status - Relation Status Age at Father Level of Service:74313 NC OFFICE/OP CONSLTJ NEW/EST PT HIGH MDM 55 MINUTES Reason for Visit and Comments: Psychiatric Evaluation [699647] [facility] Office Visiton 02-19-2024 Follow-up visit [id number] Bhavesh Cárdenas 1975 M Date Provider Department Center 02/19/2024 Nestor-DANNI MANS[facility] SURG Second Fl Family History Problem Relation Age of Onset Multiple sclerosis Father Prostate cancer Father Family Status - Relation Status Age at Father Level of Service:89636 NC OFFICE/OP CONSLTJ NEW/EST PT MOD MDM 40 MINUTES Reason for Visit and Comments: Follow-up [577907] - Pt is here for an office visit to discuss SCS. [facility] 36on 12-03-2023 36 Spoke with patient. Advised [...] I did offer to refer him to [facility] for a second opinion for pain management and to discuss possibility of spinal cord stimulation. He will consider his options and will let us know if he would like a referral. Normal [facility] 36on 11-29-2023 36 Patient called state s recently seen and would like to know if MRI completed at [facility] has been rec'd and reviewed. He can be reached at [phone] Thank you [facility] Telephoneon 11-29-2023 Telephone [id number] Bhavesh Cárdenas 1975 M Date Provider Department Center 11/29/2023 148DEVIKA, [facility] SURG Second Fl Family History Problem Relation Age of Onset Multiple sclerosis Father Prostate cancer Father Family Status - Relation Status Age at Father [facility] Consulton 11-21-2023 Consult [id number] Bhavesh Cárdenas 1975 M Date Provider Department Center 11/21/[address] [facility] SURG Second Fl Family History Problem Relation Age of Onset Multiple sclerosis Father Prostate cancer Father Family Status - Relation Status Age at Father Level of Service:85925 NC OFFICE/OUTPATIENT NEW HIGH MDM 60 MINUTES Reason for Visit and Comments: Consult [484] - Bhavesh is here today for a consult for Lumbar spondylosis. 2nd opinion. Imaging requested from Chirag pierson [facility]. Normal [facility] Automated erythrocytes count in urine sediment (number/area)Ordered By: Kristina Delgado on 08-24-2023 RBC Auto (Urine sed) [#/Area] None seen [HPF] 0-4 [facility] Automated leukocytes count i n urine sediment (number/area)Ordered By: Kristina Delgado on 08-24-2023 WBC Auto (Urine sed) [#/Area] None seen [HPF] 0-4 [facility] Bilirubin Test strip Ql (U)O rdered By: Kristina Delgado on 08-24-2023 Bilirubin Ql (U) Negative Negative [facility] CT lumbar spine wo conon CT lumbar spine wo con [facility] Main [place] [address] [place] [address] CT Scan Report Signed Patient: Bhavesh Cárdenas MR#: [id number] : 1975 Acct:[id number] Age/Sex: 47 / M ADM Date: 08/24/23 Loc: ER Room: Type: [facility] ER Attending Dr: Copies to: DU [...] Polina Cabrera M.D.08/24/2023 3:01 PM Dictation Location: [place] [address] Transcribed By: [facility] 08/24/23 1501 Dictated By: Polina Cabrera MD 08/24/23 1453 Signed By: 08/24/23 1501 Normal [facility] Color Auto (U)Ordered By: Ly Delgado on 08-24-2023 Color (U) Yellow Yellow [facility] Dipstick and Microscopicon 1 10-24-2022 Appearance (U) Cloudy Critically abnormal Clear [facility] Comment on above: Order Comment: Name Collection Type:: Clean-Voided Midstream Performed By: #### A DDONUAPLUS #### [facility] [address] [id number] [place] Bacteria,Urine None Seen Normal None Seen [facility] Comment on above: Order Comment: Name Collection Type:: Clean-Voided Midstream Performed By: #### A DDONUAPLUS #### [facility] [address] [place] [address] [place] Bilirubin,Urine Negative Normal Negative [facility] Comment on above: Order Comment: Name Collection Type:: Clean-Voided Midstream Performed By: #### A DDONUAPLUS #### [facility] [address] [place] [address] [place] Color (U) Yellow Normal Yellow [facility] Comment on above: Order Comment: Name Collection Type:: Clean-Voided Midstream Performed By: #### A DDONUAPLUS #### [facility] [address] [place] [address] [place] Glucose Ql (U) 100 mg/dL High Normal [facility] Comment on above: Order Comment: Name Collection Type:: Clean-Voided Midstream Performed By: #### A DDONUAPLUS #### [facility] [address] [place] [address] [place] Hyaline Casts,Urine None Seen Normal 0-8 [facility] Comment on above: Order Comment: Name Collection Type:: Clean-Voided Midstream Result Comment: PERF ORMED BY: [place] [address] PATHOLOGIST TAPPER HELPER COLUMBA CHRISTY M.D. Performed By: #### A DDONUAPLUS #### [place] [address] [place] Ketones Ql (U) Negative Normal Negative [facility] Comment on above: Order Comment: Name Collection Type:: Clean-Voided Midstream Performed By: #### A DDONUAPLUS #### [place] [address] [place] Leukocyte esterase Test strip Ql (U) Negative Normal Negative [facility] Comment on above: Order Comment: Name Collection Type:: Clean-Voided Midstream Performed By: #### A DDONUAPLUS #### [place] [address] [place] Nitrite,Urine Negative Normal Negative [facility] Comment on above: Order Comment: Name Collection Type:: Clean-Voided Midstream Performed By: #### A DDONUAPLUS #### [place] [address] [place] Occult Blood,Urine Negative Normal Negative [facility] Comment on above: Order Comment: Name Collection Type:: Clean-Voided Midstream Result Comment: PERF ORMED BY: [place] [address] PATHOLOGIST TAPPER HELPER COLUMBA CHRISTY M.D. Performed By: #### A DDONUAPLUS #### [place] [id number] [place] pH (U) 6.0 [pH] Normal 5.0-9.0 [facility] Comment on above: Order Comment: Name Collection Type:: Clean-Voided Midstream Performed By: #### A DDONUAPLUS #### [place] [address] [place] Protein,Urine Negative Normal Negative [facility] Comment on above: Order Comment: Name Collection Type:: Clean-Voided Midstream Performed By: #### A DDONUAPLUS #### [facility] [address] [place] [address] RBC,Urine None Seen Normal 0-4 [facility] Comment on above: Order Comment: Name Collection Type:: Clean-Voided Midstream Performed By: #### A DDONUAPLUS #### [facility] [address] [place] [address] Specificy Ragland,Urine 1.013 Normal 1.001-1.030 [facility] Comment on above: Order Comment: Name Collection Type:: Clean-Voided Midstream Performed By: #### A DDONUAPLUS #### [facility] [address] [place] [address] Squamous Epithelial Cell,Urine None Seen Normal 0-2 [facility] Comment on above: Order Comment: Name Collection Type:: Clean-Voided Midstream Performed By: #### A DDONUAPLUS #### [facility] [address] [place] [address] Urobilinogen,Urine Normal Normal Normal [facility] Comment on above: Order Comment: Name Collection Type:: Clean-Voided Midstream Performed By: #### A DDONUAPLUS #### [facility] [address] [place] [address] WBC,Urine None Seen Normal 0-4 [facility] Comment on above: Order Comment: Name Collection Type:: Clean-Voided Midstream Performed By: #### A DDONUAPLUS #### [facility] [address] [place] [address] Ketones Auto test strip (U) [Mass/Vol]Ordered By: Kristina Delgado on 08-24-2023 Ketones (U) [Mass/Vol] Negative Negative [facility] Laboratory - UrinalysisOrder ed By: Kristina Delgado on 08-24-2023 Hyaline casts LM Ql (Urine sed) None seen [LPF] 0-8 [facility] Nitrite Test strip Ql (U)Ord ered By: Kristina Delgado on 08-24-2023 Nitrite Ql (U) Negative Negative [facility] Protein Auto test strip (U) [Mass/Vol]Ordered By: Kristina Delgado on 08-24-2023 Protein (U) [Mass/Vol] Negative Negative [facility] Specific gravity Auto test s trip (U) [Rel density]Ordered By: Kristinanelda Delgado on 08-24-2023 Specific gravity (U) [Rel density] 1.013 1.001-1.030 [facility] Squamous epithelial cells de tection in urine sediment by light microscopyOrdered By: Kristina Delgado on 08-24-2023 Epithelial cells.squamous LM Ql (Urine sed) None seen [HPF] 0-2 [facility] Urine bacteria detection by automated methodOrdered By: Kristina Delgado on 08-24-2023 Bacteria Auto Ql (U) None seen None Seen [facility] Urine clarity by refractomet ry automatedOrdered By: Kristina Delgado on 08-24-2023 Clarity Refractometry automated (U) Cloudy Clear [facility] Urine glucose measurement by automated test strip (mass/volume)Ordered By: Kristina Delgado on 08-24-2023 Glucose Auto test strip (U) [Mass/Vol] 100 mg/dL Normal [facility] Urine hemoglobin detection b y automated test stripOrdered By: Kristina Delgado on 08-24-2023 Hemoglobin Auto test strip Ql (U) Negative Negative [facility] Urine leukocyte esterase det ection by automated test stripOrdered By: Kristina Delgado on 08-24-2023 Leukocyte esterase Auto test strip Ql (U) Negative Negative [facility] Urobilinogen Auto test strip (U) [Mass/Vol]Ordered By: Kristina Delgado on 08-24-2023 Urobilinogen (U) [Mass/Vol] Normal mg/dL Normal [facility] pH Auto test strip (U)Ordere d By: Kristina Delgado on 08-24-2023 pH (U) 6.0 [pH] 5.0-9.0 [facility] MR lumbar spine wo conon MR lumbar spine wo con [facility] Main [address] [address] MRI Report Signed Patient: Bhavesh Cárdenas MR#: [id number] : 1975 Acct:[id number] Age/Sex: 47 / M ADM Date: 06/21/23 Loc: MR Room: Type: [facility] CLI Attending Dr: Tracy Wu Adult CINDER PITMAN-BC Copies to: KINJAL William Ordering Provider: KINJAL [...] Clayton Joe M.D.06/22/2023 1:14 PM Dictation Location: [place] [address] Transcribed By: [facility] 06/22/23 1314 Dictated By: Clayton Joe II, MD 06/22/23 1308 Signed By: 06/22/23 1314 [facility] MR thoracic spine wo conon 0 05-16-2023 MR thoracic spine wo con [facility] Main [place] [address] [place] [address] MRI Report Signed Patient: Bhavesh Cárdenas MR#: [id number] : 1975 Acct:[id number] Age/Sex: 47 / M ADM Date: 05/16/23 Loc: Room: Type: [facility] [address] Attending Dr: Tracy Wu Adult CINDER PITMAN-BC Copies to: KINJAL William Ordering Provider: KINJAL William Date of Service: 05/16/23 MR/MR cervical spine wo con: M47.896 ([id number]) MR/MR thoracic spine wo con: M47.896 CLINICAL [...] Polina Cabrera M.D.05/16/2023 9:00 PM Dictation Location: [place] [address] Transcribed By: [facility] 05/16/232099 Dictated By: Polina Cabrera MD 05/16/232049 Signed By: 05/16/232099 [facility] BHAVESH CÁRDENAS ([id number]) 1975 M Date Time Provider Department 03/28/23 KB LORENZO During your visit today, we recorded the following information about you: Lori Woody RN 03/28/2023 2:37 PM Signed Weight entered in Epic Allergies As of Date: 03/28/2023 Noted Allergy [...] Encounter Status:Closed by LORNA ANAYA on 03/28/23 [facility] 03-27-2023 [facility] Telephone (NEPREM) BHAVESH CÁRDENAS ([id number]) 1975 M Date Time Provider Department 03/27/23 [facility] PROVIDER [facility] During your visit today, we recorded [...] Encounter Status:Closed by LORNA ANAYA on 03/27/23 [facility] 02-19-2023 [facility] Telephone (NEPREM) BHAVESH CÁRDENAS ([id number]) 1975 M Date Time Provider Department 02/19/23 KB LORENZO During your visit today, we recorded the following information about you: Lorna Héctor 02/19/2023 11:51 AM Signed Patient phones stating his back cracked on and pain increased, he found harder to walk d/t pain. Patient also reports yesterday right leg was not moving and caused patient to fall, please advise. Lorna Héctor 02/21/2023 11:34 AM Signed Patient phones stating he is still in pain following his message from Sunday regarding increase in pain, requests phone call at [phone]. Lori Woody RN 02/21/2023 3:57 PM Addendum [...] Fully Assessed Reason for Visit: Patient Question [3028] Prescriptions as of 02/21/2023 - traZODone (DESYREL) [...] Encounter Status:Closed by LORNA ANAYA on 02/19/23 [facility] Theodora 02-09-2023 [facility] Telephone (NEPREM) BHAVESH CÁRDENAS ([id number]) 1975 M Date Time Provider Department 02/09/23 [...] Fully Assessed Reason for Visit: Patient Question [6248] Order(s):methylPREDNI Solone (MEDROL, GUSTABO,) 4 mg Dose-PackUse [...] Encounter Status:Closed by LORNA ANAYA on [facility]*on XR lumbar spine min 4V* [facility] Main [place] [address] [place] [address] XRay Report Signed Patient: Bhavesh Cárdenas MR#: [id number] : 1975 Acct:[id number] Age/Sex: 47 / M ADM Date: 01/27/23 Loc: ER Room: Type: [facility] ER Attending Dr: Copies to: DU [...] Polina Cabrera M.D.01/27/2023 11:42 AM Dictation Location: [place] [address] Transcribed By: [facility] 01/27/23 1142 Dictated By: Polina Cabrera MD 01/27/23 1138 Signed By: 01/27/23 1142 [facility] HISTORY PHYSICALon HISTORY PHYSICAL HNO ID: [id number] Author: Kb Lorenzo, DO Service: ? Author [...] January 24, 2023 TIME: 9:47 AM Normal [facility] NURSING PROGon 01-24-2023 NURSING PROG HNO ID: [id number] Author: Blank Moya RN Service: ? Author Type: Registered Nurse Type: Nursing Progress Note Filed: 01/29/2023 9:01 AM Note Text: Summary: Post-Procedure Call Post Procedure Follow Up Phone Call. No answer. The patient was instructed to call [phone] with the percentage of pain relief and what activities have improved. Blank Moya RN January 29, 2023 Normal [facility] OPERATIVE NOon 01-24-2023 OPERATIVE NO HNO ID: [id number] Author: Kb Lorenzo DO Service: ? Author Type: Physician Type: Operative Report Filed: 01/24/2023 10:12 AM Note Text: LOG ID: [id number] Surgery/Procedure Date: 01/24/2023 Surgeon: Kb Lorenzo DO Travel Journalist: [place] Joya MD Procedure(s): Bilateral Sacroiliac Joint [...] January 24, 2023 TIME: 10:11 AM Normal [facility] NURSING PROGon 01-22-2023 NURSING PROG HNO ID: [id number] Author: Frank Marrufo RN Service: Pain Management [...] 2 hours before the appointment. 2. A dump truck driver must be present who can drive you home. If you are coming by medical transport, you must have a responsible person other than the patient transportation driver with you. 3. If you take any [...] or cannot make the appointment by calling [phone] (Option 2). [facility] Telephone (NPRC21) BHAVESH CÁRDENAS ([id number]) 1975 M Date Time Provider Department 01/11/23 LORI WOODY [facility] During your visit today, we recorded the following information about you: Lori Woody RN 01/11/2023 8:29 AM Signed Phoned and spoke with Bhavesh Cárdenas to confirm appointment for spine procedure on 01/24/23 with the arrival time of 845 for 930 am appointment. Patient verbalized understanding of the following: -Provided education on spine procedure and answered questions related to spine injection procedure. -Lace Roller Operator is needed and for dump truck driver to wait in lobby on [address] [...] anxiety. Patient verbalized understanding. Patient given number [phone], spine injections schedulers, if there is any need to reschedule/ change appointment during normal business hours. Active [employer] users were informed to read [employer] procedure instructions prior to appointment. AMBULATORY PATIENT [...] Status:Closed by LORI WOODY on 01/11/23 Normal [facility] CBC AUTO DIFFon 12-21-2022 BASO # 0.1 103/ul Normal 0.0-0.1 [facility] Comment on above: Performed By: #### C BC #### [facility] [address] [place] [address] Dr. Oscar Ocampo Basophils/100 WBC (Bld) 0.6 % Normal 0.2-2.0 [facility] Comment on above: Performed By: #### C BC #### [facility] [address] [place] [address] Dr. Oscar Ocampo EO # 0.2 103/ul Normal 0.0-0.[address] [facility] Comment on above: Performed By: #### C BC #### [facility] [address] [place] [address] Dr. Oscar Ocampo Eosinophils/100 WBC (Bld) 1.7 % Normal 0.9-7.0 [facility] Comment on above: Performed By: #### C BC #### [facility] [address] [place] [address] Dr. Oscar Ocampo Erythrocyte distribution width (RBC) [Ratio] 12.2 % Normal 11.0-15.0 [facility] Comment on above: Performed By: #### C BC #### [facility] [address] [place] [address] Dr. Oscar Ocampo Hematocrit (Bld) [Volume fraction] 44.4 % Normal 42.0-54.0 [facility] Comment on above: Performed By: #### C BC #### [facility] [address] [place] [address] Dr. Oscar Ocampo Hemoglobin (Bld) [Mass/Vol] 14.9 g/dL Normal 14.0-18.0 [facility] Comment on above: Performed By: #### C BC #### [facility] [address] [place] [address] Dr. Oscar Ocampo IG # 0.03 10e3/ul Normal 0.00-0.03 [facility] Comment on above: Performed By: #### C BC #### [facility] [address] [place] [address] Dr. Oscar Ocampo IG % 0.3 % Normal 0.0-0.5 [facility] Comment on above: Performed By: #### C BC #### [facility] [address] [place] [address] Dr. Oscar Ocampo LYMPH # 2.9 103/ul Normal 1.2-3.8 [facility] Comment on above: Performed By: #### C BC #### [facility] [address] [place] [address] Dr. Oscar Ocampo Lymphocytes/100 WBC (Bld) 32.6 % Normal 20.5-60.0 [facility] Comment on above: Performed By: #### C BC #### [facility] [address] [place] [address] Dr. Oscar Ocampo MANUAL DIFF REQ NO Normal [facility] Comment on above: Performed By: #### C BC #### [facility] [address] [place] [address] Dr. Oscar Ocampo MCH (RBC) [Entitic mass] 30.0 pg Normal 25.9-34.0 [facility] Comment on above: Performed By: #### C BC #### [facility] [address] [place] [address] Dr. Oscar Ocampo MCHC (RBC) [Mass/Vol] 33.6 g/dL Normal 29.9-35.[address] [facility] Comment on above: Performed By: #### C BC #### [facility] [address] [place] [address] Dr. Oscar Ocampo MCV (RBC) [Entitic vol] 89.3 fL Normal 80.0-94.[address] [facility] Comment on above: Performed By: #### C BC #### [facility] [address] [place] [address] Dr. Oscar Ocampo MONO # 0.8 103/ul Normal 0.3-0.[address] [facility] Comment on above: Performed By: #### C BC #### [facility] [address] [place] [address] Dr. Oscar Ocampo Monocytes/100 WBC (Bld) 8.7 % Normal 1.7-12.[address] [facility] Comment on above: Performed By: #### C BC #### [facility] [address] [place] [address] Dr. Oscar Ocampo NEUT # 5.1 103/ul Normal 1.4-6.[address] [facility] Comment on above: Performed By: #### C BC #### [facility] [address] [place] [address] Dr. Oscar Ocampo Neutrophils/100 WBC (Bld) 56.1 % Normal 43.0-75.[address] [facility] Comment on above: Performed By: #### C BC #### [facility] [address] [place] [address] Dr. Oscar Ocampo Platelet mean volume (Bld) [Entitic vol] 10.5 fL Normal 9.5-13.[address] [facility] Comment on above: Performed By: #### C BC #### [facility] [address] [place] [address] Dr. Oscar Ocampo PLT 311 103/ul Normal 150-[address] [facility] Comment on above: Performed By: #### C BC #### [facility] [address] [place] [address] Dr. Oscar Ocampo RBC 4.97 106/ul Normal 4.70-6.[address] [facility] Comment on above: Performed By: #### C BC #### [facility] [address] [place] [address] Dr. Oscar Ocampo WBC 9.0 103/ul Normal 4.0-11.0 [facility] Comment on above: Performed By: #### C BC #### [facility] [address] [place] [address] Dr. Oscar Ocampo GLYCOHEMOGLOBIN A1Con 2022 ADA RECOMMENDATION SEE BELOW Normal [facility] Comment on above: Result Comment: ADA RECOMMENDED LIMIT 4.0 - 6.0 ADA THERAPEUTIC TARGET < 7.0 ACTION SUGGESTED > 7.0 Performed By: #### A 1C #### [facility] [address] [place] [address] Dr. Oscar Ocampo Glucose [Mass/Vol] 289 mg/dL Normal [facility] Comment on above: Performed By: #### A 1C #### [facility] [address] [place] [address] Dr. Oscar Ocampo HbA1c (Bld) [Mass fraction] 11.7 % Critically high 4.5-6.2 [facility] Comment on above: Performed By: #### A 1C #### [facility] [address] [place] [address] Dr. Oscar Ocampo LIPID PROFILEon 12-21-2022 CHOL-HDL RATIO NORM SEE BELOW Normal [facility] Comment on above: Result Comment: 3.3 - 4.4 LOW RISK 4.4 - 7.1 AVERAGE RISK 7.1 - 11.0 MODERATE RISK >11.0 HIGH RISK Performed By: #### L IPID, BMP #### [facility] [address] [place] [address] [address] Oscar Ocampo Cholesterol [Mass/Vol] 217 mg/dL Critically high <=[address] [facility] Comment on above: Performed By: #### L IPID, BMP #### [facility] [address] [place] [address] Dr. Oscar Ocampo Cholesterol in HDL [Mass/Vol] 40 mg/dL Normal 40-60 [facility] Comment on above: Performed By: #### L IPID, BMP #### [facility] [address] [place] [address] [address] Oscar Ocampo Cholesterol in LDL [Mass/Vol] 133.4 mg/dL Normal [facility] Comment on above: Performed By: #### L IPID, BMP #### [facility] [address] [place] [address] Dr. Oscar Ocampo Cholesterol.total/Ch olesterol in HDL [Mass ratio] 5.4 {ratio} Normal [facility] Comment on above: Performed By: #### L IPID, BMP #### [facility] [facility] [address] [place] [address] Dr. Oscar Ocampo HDL NORMAL > or = 60 mg/dl - LO W CARDIOVASCULAR RISK <40 mg/dl - HIGH CARDIOVASCULAR RISK Normal [facility] Comment on above: Performed By: #### L IPID, BMP #### [facility] [address] [place] [address] Dr. Oscar Ocampo LDL CALC NORMAL SEE BELOW Normal [facility] Comment on above: Result Comment: <100 mg/dl OPTIMAL 100 - 129 mg/dl NEAR OR ABOVE OPTIMAL 130 - 159 mg/dl BORDERLINE HIGH 160 - 189 mg/dl HIGH >190 mg/dl VERY HIGH Performed By: #### L IPID, BMP #### [facility] [address] [place] [address] Dr. Oscar Ocampo Triglyceride [Mass/Vol] 218 mg/dL Critically high <=[address] [facility] Comment on above: Performed By: #### L IPID, BMP #### [facility] [address] [place] [address] Dr. Oscar Ocampo VLDL CALC 43.6 mg/dL Normal [facility] Comment on above: Performed By: #### L IPID, BMP #### [facility] [address] [place] [address] Dr. Oscar Ocampo PROF CHEM 8 (BAS METB)on Anion gap [Moles/Vol] 12.6 mmol/L Normal [facility] Comment on above: Performed By: #### L IPID, BMP #### [facility] [address] [address] [address] Oscar Ocampo Calcium [Mass/Vol] 9.6 mg/dL Normal 8.5-10.1 [facility] Comment on above: Performed By: #### L IPID, BMP #### [facility] [address] [place] [address] Dr. Oscar Ocampo Chloride [Moles/Vol] 100 mmol/L Normal 98-107 [facility] Comment on above: Performed By: #### L IPID, BMP #### [facility] [address] [place] [address] Dr. Oscar Ocampo CO2 [Moles/Vol] 28.6 mmol/L Normal 21.0-32.0 [facility] Comment on above: Performed By: #### L IPID, BMP #### [facility] [address] [place] [address] Dr. Oscar Ocampo Creatinine [Mass/Vol] 0.84 mg/dL Normal 0.70-1.30 [facility] Comment on above: Performed By: #### L IPID, BMP #### [facility] [address] [place] [address] Dr. Oscar Ocampo EGFR-AF PALESTINIAN >60 Normal >=60 [facility] Comment on above: Performed By: #### L IPID, BMP #### [facility] [address] [place] [address] Dr. Oscar Ocampo EGFR-NON AF PALESTINIAN >60 Normal >=60 [facility] Comment on above: Performed By: #### L IPID, BMP #### [facility] [address] [place] [address] Dr. Oscar Ocampo Glucose [Mass/Vol] 197 mg/dL Critically high 74-106 [facility] Comment on above: Performed By: #### L IPID, BMP #### [facility] [address] [place] [address] Dr. Oscar Ocm[place] Potassium [Moles/Vol] 4.2 mmol/L Normal 3.5-5.1 [facility] Comment on above: Performed By: #### L IPID, BMP #### [facility] [address] [address] [address] Oscar Ocampo Sodium [Moles/Vol] 137 mmol/L Normal 136-145 [facility] Comment on above: Performed By: #### L IPID, BMP #### [facility] [address] [address] [address] Oscar Ocampo Urea nitrogen [Mass/Vol] 14.0 mg/dL Normal 7.0-18.0 [facility] Comment on above: Performed By: #### L IPID, BMP #### [facility] [address] [address] [address] Oscar Ocampo Urea nitrogen/Creatinine [Mass ratio] 16.7 mg/mg Normal [facility] Comment on above: Performed By: #### L IPID, BMP #### [facility] [address] [address] [address] Oscar Yip 12-15-2022 [facility] Telephone (NPRC21) BHAVESH CÁRDENAS ([id number]) 1975 M Date Time Provider Department 12/15/22 LORI WOODY [facility] During your visit today, we recorded [...] Encounter Status:Closed by LORI WOODY on 12/15/22 [facility] Bridget 11-24-2022 CNOV Office Visit (SPNMMN ) BHAVESH CÁRDENAS ([id number]) 1975 M Date Time Provider Department 11/24/22 10:00 AM SPINE MED PROCEDURE MAIN [facility] During your visit today, we recorded the [...] entered in activity in visit navigator: Yes Lace Roller Operator for post spine injection procedure: Yes First [...] All in agreement. Referring Provider: KB LORENZO [[id number]] Allergies As of Date: 11/24/2022 Noted Allergy Reaction NSAIDS (NON-STEROIDAL ANTI-INFLAM* 10 - Anaphylaxis 14 - Other: See Comments 12 - Shortness of Breath 7 - Swelling Date Reviewed: 11/24/2022 Reviewed by: Gillian Vega RN - Fully Assessed Primary Visit Diagnosis:APPOINTMENT CANCELLED Order(s):GLUCOSE, BLOOD (POC) [9211906] Order #: [id number]. #:[id number] Prescriptions as of 12/26/2022 - DULoxetine (CYMBALTA) [...] entered in activity in visit navigator: Yes Lace Roller Operator for post spine injection procedure: Yes First [...] Status:Closed by PATRICIA VIGIL on 12/26/22 Normal [facility] GLUCOSE, BLOOD (POC)on 11-24 Glucose [Mass/Vol] 430 mg/dL Abnormal 74 - 99 mg/dL [facility] CNPNon 11-16-2022 CNPN Telephone ([facility]) BHAVESH CÁRDENAS ([id number]) 1975 M Date Time Provider Department 11/16/22 KB LORENZO [facility] During your visit today, we recorded the following information about you: Washington Ly LPN 11/16/2022 1:00 PM Signed Tried to reach patient via telephone for pre-procedure guidelines regarding spine injection with Dr. Lorenzo on 11/24/2022, patient unable to talk on phone at this time. Voicemail box is full and cannot accept messages at this time.. [employer] message sent with pre-procedure guidelines for injection. [...] Encounter Status:Closed by WASHINGTON LY on 11/16/22 Normal [facility] CNOVon 11-15-2022 CNOV Office Visit (NPRC21 ) BHAVESH CÁRDENAS ([id number]) 1975 M Date Time Provider Department 11/15/22 2:00 PM KB LORENZO NPRC21 During your visit today, we recorded the following information about you: Pulse Respiration Blood pressure 90/minute 18/minute 121/87 Kb Lorenzo DO 12/09/2022 11:53 AM Signed THE [facility] November 15, 2022 This is a in-person visit. 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 He was referred by Olayinka Boyd [address] [address] [facility] [address]. Chief complaint: Center of back pain that [...] doctor and was seen by rheumatology. 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 He started physical therapy In 2020 the patient was sent to a L5-S1 for radiofrequency ablation that were not helpful. The diagnostic blocks was done as well. [facility] The patient tried to tolerate [...] patient was seen by neurosurgery here at [facility] and not deemed an appropriate surgical [...] Denies CHF: Denies Uncontrolled HTN: Denies Recent MA: Denies Arrythmias: Denies Afib: Denies Hyperthyroid: Denies [...] Never Substance use: He never used tobacco. @Znaptag@ denies current and past significant alcohol use and @[employer]@ describes current alcohol consumption as 3-4 shots [...] and extrem (more content not included)... Normal [facility] MIKAYLA BY IFA WITH REFLEXon Nuclear Ab IF (S) [Titer] Negative Normal Negative [facility] Comment on above: Order Comment: Speci men Type: BLOOD SPECIMENOrdering Facility: [facility] Address: [place] [address] Result Comment: Anti -nuclear antibody test is used as an aid in diagnosis of systemic autoimmune diseases. Where positive and clinically warranted, follow-up using disease-specific testing is recommended. Low positive titers are not uncommon with advanced age, certain chronic infections, and malignancies among others. Test methodology: Indirect fluorescence immunoassay (IFA) using HEp-2 cells. Performed By: #### A NAIFR ####[facility] LABCLIA [id number] [place] [address] [place] C-REACTIVE PROTEIN (CRP)on 0 10-30-2022 CRP [Mass/Vol] <0.9 mg/dL [facility] CBC W Auto Differential pane l (Bld)on 10-30-2022 Basophils (Bld) [#/Vol] 0.07 10*3/uL Normal <0.11 [facility] Comment on above: Order Comment: Speci men Type: BLOOD SPECIMENOrdering Facility: [facility] Address: [address] [place] [address] Performed By: #### 5 7021-8, 4537-04 ####[facility] LABIA [id number] [place] [address] [place] Basophils/100 WBC (Bld) 0.8 % Normal [facility] Comment on above: Order Comment: Speci men Type: BLOOD SPECIMENOrdering Facility: [facility] Address: [address] [place] [address] Performed By: #### 5 7021-8, 4537-04 ####[facility] LABIA [id number] [place] [address] [place] Differential cell count method Nom (Bld) Auto Normal [facility] Comment on above: Order Comment: Speci men Type: BLOOD SPECIMENOrdering Facility: [facility] Address: [address] [place], [place] [address] Performed By: #### 5 7021-8, 4537-04 ####[facility] LABCLIA [id number] [place] [address] [place] Eosinophils (Bld) [#/Vol] 0.17 10*3/uL Normal <0.46 [facility] Comment on above: Order Comment: Speci men Type: BLOOD SPECIMENOrdering Facility: [facility] Address: [address] Performed By: #### 5 7021-8, 7-7 ####[facility] LABCLIA [id number] [place] [address] [place] Eosinophils/100 WBC (Bld) 1.9 % Normal [facility] Comment on above: Order Comment: Speci men Type: BLOOD SPECIMENOrdering Facility: [facility] Address: [address] [place], [place] [address] Performed By: #### 5 7021-8, 4536-7 ####[facility] LABCLIA [id number] [place] [address] [place] Erythrocyte distribution width (RBC) [Ratio] 11.8 % Normal 11.5-15.0 [facility] Comment on above: Order Comment: Speci men Type: BLOOD SPECIMENOrdering Facility: [facility] Address: [address] [place], [place] [address] Performed By: #### 5 7021-8, 4536-7 ####[facility] LABCLIA [id number] [place] [address] [place] Hematocrit (Bld) [Volume fraction] 45.8 % Normal 39.0-51.0 [facility] Comment on above: Order Comment: Speci men Type: BLOOD SPECIMENOrdering Facility: [facility] Address: [address] [place], [place] [address] Performed By: #### 5 7021-8, 4537-7 ####[facility] LABCLIA [id number] [place] [address] [place] Hemoglobin (Bld) [Mass/Vol] 15.7 g/dL Normal 13.0-17.0 [facility] Comment on above: Order Comment: Speci men Type: BLOOD SPECIMENOrdering Facility: [facility] Address: [address] [place], [place] [address] Performed By: #### 5 7021-8, 4536-7 ####[facility] LABCLIA [id number] [place] [address] [place] Immature granulocytes (Bld) [#/Vol] 0.06 10*3/uL Normal <0.10 [facility] Comment on above: Order Comment: Speci men Type: BLOOD SPECIMENOrdering Facility: [facility] Address: [address] [place], [place] [address] Performed By: #### 5 7021-8, 7 ####[facility] LABCLIA [id number] [address] [place] Immature granulocytes/100 WBC (Bld) 0.7 % Normal [facility] Comment on above: Order Comment: Speci men Type: BLOOD SPECIMENOrdering Facility: [facility] Address: [address] [place] [address] Performed By: #### 5 7021-8, 7 ####[facility] LABCLIA [id number] [place] [address] [place] Lymphocytes (Bld) [#/Vol] 2.56 10*3/uL Normal 1.00-4.00 [facility] Comment on above: Order Comment: Speci men Type: BLOOD SPECIMENOrdering Facility: [facility] Address: [address] [place], [place] [address] Performed By: #### 5 7021-8, 7 ####[facility] LABCLIA [id number] [place] [address] [place] Lymphocytes/100 WBC (Bld) 27.9 % Normal [facility] Comment on above: Order Comment: Speci men Type: BLOOD SPECIMENOrdering Facility: [facility] Address: [address] Performed By: #### 5 7021-8, 4536-7 ####[facility] LABCLIA [id number] [address] STATES [place] [facility] MCH (RBC) [Entitic mass] 30.3 pg Normal 26.0-34.0 [facility] Comment on above: Order Comment: Speci men Type: BLOOD SPECIMENOrdering Facility: [facility] Address: [address] [place] [address] Performed By: #### 5 7021-8, 4536-7 ####[facility] LABCLIA [id number] [address] MCHC (RBC) [Mass/Vol] 34.3 g/dL Normal 30.5-36.0 [facility] Comment on above: Order Comment: Speci men Type: BLOOD SPECIMENOrdering Facility: [facility] Address: [address] [place] [address] Performed By: #### 5 7021-8, 7 ####[facility] LABCLIA [id number] [address] [place] MCV (RBC) [Entitic vol] 88.4 fL Normal 80.0-100.0 [facility] Comment on above: Order Comment: Speci men Type: BLOOD SPECIMENOrdering Facility: [facility] Address: [address] [place] [address] Performed By: #### 5 7021-8, 4536-7 ####[facility] LABCLIA [id number] [place] [address] [place] Monocytes (Bld) [#/Vol] 0.70 10*3/uL Normal <0.87 [facility] Comment on above: Order Comment: Speci men Type: BLOOD SPECIMENOrdering Facility: [facility] Address: [address] [place], [place] [address] Performed By: #### 5 7021-8, 4536-7 ####[facility] LABCLIA [id number] [id number] [address] [place] Monocytes/100 WBC (Bld) 7.6 % Normal [facility] Comment on above: Order Comment: Speci men Type: BLOOD SPECIMENOrdering Facility: [facility] Address: [address] [place] [address] Performed By: #### 5 7021-8, 4536-7 ####[facility] LABCLIA [id number] [place] [address] [place] Neutrophils (Bld) [#/Vol] 5.62 10*3/uL Normal 1.45-7.50 [facility] Comment on above: Order Comment: Speci men Type: BLOOD SPECIMENOrdering Facility: [facility] Address: [address] [place] [address] Performed By: #### 5 7021-8, 4536-7 ####[facility] LABCLIA [id number] [place] [address] [place] Neutrophils/100 WBC (Bld) 61.1 % Normal [facility] Comment on above: Order Comment: Speci men Type: BLOOD SPECIMENOrdering Facility: [facility] Address: [address] [place], [place] [address] Performed By: #### 5 7021-8, 7 ####[facility] LABCLIA [id number] [place] [address] [place] Nucleated RBC (Bld) [#/Vol] 10*3/uL Normal <0.01 [facility] Comment on above: Order Comment: Speci men Type: BLOOD SPECIMENOrdering Facility: [facility] Address: [address] [place], [place] [address] Performed By: #### 5 7021-8, 4536-7 ####[facility] LABCLIA [id number] [place] [address] [place] Nucleated RBC/100 WBC (Bld) [Ratio] 0.0 /100 WBC Normal [facility] Comment on above: Order Comment: Speci men Type: BLOOD SPECIMENOrdering Facility: [facility] Address: [address] [place] [address] Performed By: #### 5 7021-8, 4537-7 ####[facility] LABCLIA [id number] [place] [address] [place] Platelet mean volume (Bld) [Entitic vol] 11.5 fL Normal 9.0-12.7 [facility] Comment on above: Order Comment: Speci men Type: BLOOD SPECIMENOrdering Facility: [facility] Address: [address] [place], [place] [address] Performed By: #### 5 7021-8, 4537-7 ####[facility] LABIA [id number] [place] [address] [place] Platelets (Bld) [#/Vol] 348 10*3/uL Normal 150-400 [facility] Comment on above: Order Comment: Speci men Type: BLOOD SPECIMENOrdering Facility: [facility] Address: [address] [place], [place] [address] Performed By: #### 5 7021-8, 4537-7 ####[facility] LABIA [id number] [place] [address] [place] RBC (Bld) [#/Vol] 5.18 10*6/uL Normal 4.20-6.00 [facility] Comment on above: Order Comment: Speci men Type: BLOOD SPECIMENOrdering Facility: [facility] Address: [address] [place] [address] Performed By: #### 5 7021-8, 4537-7 ####[facility] LABIA [id number] [place] [address] [place] WBC (Bld) [#/Vol] 9.18 10*3/uL Normal 3.70-11.00 [facility] Comment on above: Order Comment: Speci men Type: BLOOD SPECIMENOrdering Facility: [facility] Address: [address] [place], [place] [address] [place] [id number] Performed By: #### 5 7021-8, 4537-7 ####[facility] LABCLIA [id number] [place] [address] [place] Basophils (Bld) [#/Vol] 0.07 10*3/uL <0.11 k/uL [facility] Basophils/100 WBC (Bld) 0.8 % [facility] Differential cell count method Nom (Bld) Auto [facility] Eosinophils (Bld) [#/Vol] 0.17 10*3/uL <0.46 k/uL [facility] Eosinophils/100 WBC (Bld) 1.9 % [facility] Erythrocyte distribution width (RBC) [Ratio] 11.8 % 11.5 - 15.0 % [facility] Hematocrit (Bld) [Volume fraction] 45.8 % 39.0 - 51.0 % [facility] Hemoglobin (Bld) [Mass/Vol] 15.7 g/dL 13.0 - 17.0 g/dL [facility] Immature granulocytes (Bld) [#/Vol] 0.06 10*3/uL <0.10 k/uL [facility] Immature granulocytes/100 WBC (Bld) 0.7 % [facility] Lymphocytes (Bld) [#/Vol] 2.56 10*3/uL 1.00 - 4.00 k/uL [facility] Lymphocytes/100 WBC (Bld) 27.9 % [facility] MCH (RBC) [Entitic mass] 30.3 pg 26.0 - 34.0 pg [facility] MCHC (RBC) [Mass/Vol] 34.3 g/dL 30.5 - 36.0 g/dL [facility] MCV (RBC) [Entitic vol] 88.4 fL 80.0 - 100.0 fL [facility] Monocytes (Bld) [#/Vol] 0.70 10*3/uL <0.87 k/uL [facility] Monocytes/100 WBC (Bld) 7.6 % [facility] Neutrophils (Bld) [#/Vol] 5.62 10*3/uL 1.45 - 7.50 k/uL [facility] Neutrophils/100 WBC (Bld) 61.1 % [facility] Nucleated RBC (Bld) [#/Vol] <0.01 k/uL [facility] Nucleated RBC/100 WBC (Bld) [Ratio] 0.0 /100 WBC [facility] Platelet mean volume (Bld) [Entitic vol] 11.5 fL 9.0 - 12.7 fL [facility] Platelets (Bld) [#/Vol] 348 10*3/uL 150 - 400 k/uL [facility] RBC (Bld) [#/Vol] 5.18 10*6/uL 4.20 - 6.0 0 m/uL [facility] WBC (Bld) [#/Vol] 9.18 10*3/uL 3.70 - 11. 00 k/uL [facility] CNOVon 10-30-2022 CNOV Office Visit (RHARMN ) BHAVESH CÁRDENAS ([id number]) 1975 M Date Time Provider Department 10/30/22 9:00 AM SANTANA HARRIS During your visit today, we recorded the following information about you: Temperature Pulse Blood pressure 95.6 degrees 68/minute 144/96 Santana Harris MD 10/30/2022 10:20 AM Signed ref: Shaikh Moi [address] [place] [address] I have been asked to see Bhavesh Cárdenas [place] [address] HPI: Back pain for most of his lef. On the right side, just above the buttocks. The past six months it is painful picking up 24 pack of water. Leg drags on R a couple of times. Has fallen a couple of times. Deming like it lost control while walking. 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 Hands swell. Has pain worse first [...] well nourishe (more content not included)... Normal [facility] CRP SerPl-mCncon 10-30-2022 CRP [Mass/Vol] mg/L Normal <0.9 [facility] Comment on above: Order Comment: Speci men Type: BLOOD SPECIMENOrdering Facility: [facility] Address: [address] [place] [address] Performed By: #### 1 988-5, 17781-1, 25121-0 ####[facility] LABCLIA [id number] [place] [address] [place] Comprehensive metabolic 2000 panelon 10-30-2022 Albumin [Mass/Vol] 4.5 g/dL 3.9 - 4.9 g/dL [facility] ALP [Catalytic activity/Vol] 115 U/L High 38 - 113 U/L [facility] ALT [Catalytic activity/Vol] 19 U/L 10 - 54 U/L [facility] Anion gap [Moles/Vol] 14 mmol/L 9 - 18 mmol/L [facility] AST [Catalytic activity/Vol] 15 U/L 14 - 40 U/L [facility] Bilirubin [Mass/Vol] 0.5 mg/dL 0.2 - 1 .3 mg/dL [facility] Calcium [Mass/Vol] 9.5 mg/dL 8.5 - 10. 2 mg/dL [facility] Chloride [Moles/Vol] 94 mmol/L Low 97 - 10 5 mmol/L [facility] CO2 [Moles/Vol] 25 mmol/L 22 - 30 mmol/L [facility] Creatinine [Mass/Vol] 0.72 mg/dL Low 0.73 - 1.22 mg/dL [facility] Estimated Glomerular Filtration Rate 113 mL/min/1.73m >=60 mL/min/1.73m [facility] Glucose [Mass/Vol] 372 mg/dL High 74 - 99 mg/dL [facility] Potassium [Moles/Vol] 4.5 mmol/L 3.7 - 5.1 mmol/L [facility] Protein [Mass/Vol] 7.5 g/dL 6.3 - 8.0 g/dL [facility] Sodium [Moles/Vol] 133 mmol/L Low 136 - 144 mmol/L [facility] Urea nitrogen [Mass/Vol] 15 mg/dL 9 - 24 mg/dL [facility] Albumin [Mass/Vol] 4.5 g/dL Normal 3.9-4.9 [facility] Comment on above: Order Comment: Speci men Type: BLOOD SPECIMENOrdering Facility: [facility] Address: [address] [place], [place] [id number] Performed By: #### 1 988-5, 90757-0, 81622-5 ####[facility] LABCLIA [id number] [address] [place] ALP [Catalytic activity/Vol] 115 U/L High 38-113 [facility] Comment on above: Order Comment: Speci men Type: BLOOD SPECIMENOrdering Facility: [facility] Address: [address] [place] [address] Performed By: #### 1 988-5, 18716-8, 83459-2 ####[facility] LABCLIA [id number] [place] [address] [place] ALT [Catalytic activity/Vol] 19 U/L Normal 10-54 [facility] Comment on above: Order Comment: Speci men Type: BLOOD SPECIMENOrdering Facility: [facility] Address: [address] [place] [address] Performed By: #### 1 988-5, 26641-7, 46765-3 ####[facility] LABCLIA [id number] [place] [address] [place] Anion gap [Moles/Vol] 14 mmol/L Normal 9-18 [facility] Comment on above: Order Comment: Speci men Type: BLOOD SPECIMENOrdering Facility: [facility] Address: [address] [place] [address] Performed By: #### 1 988-5, 47678-3, 54289-1 ####[facility] LABCLIA [id number] [address] [place] AST [Catalytic activity/Vol] 15 U/L Normal 14-40 [facility] Comment on above: Order Comment: Speci men Type: BLOOD SPECIMENOrdering Facility: [facility] Address: [address] [place], [place] [address] Performed By: #### 1 988-5, 81785-2, 14670-2 ####[facility] LABCLIA [id number] [place] [address] [place] Bilirubin [Mass/Vol] 0.5 mg/dL Normal 0.2-1.3 [facility] Comment on above: Order Comment: Speci men Type: BLOOD SPECIMENOrdering Facility: [facility] Address: [address] Performed By: #### 1 988-5, 69426-6, 67858-8 ####[facility] LABCLIA [id number] [place] [address] [place] Calcium [Mass/Vol] 9.5 mg/dL Normal 8.5-10.2 [facility] Comment on above: Order Comment: Speci men Type: BLOOD SPECIMENOrdering Facility: [facility] Address: [address] Performed By: #### 1 988-5, 91857-6, 15794-1 ####[facility] LABCLIA [id number] [place] [address] [place] Chloride [Moles/Vol] 94 mmol/L Low 97-105 [facility] Comment on above: Order Comment: Speci men Type: BLOOD SPECIMENOrdering Facility: [facility] Address: [address] Performed By: #### 1 988-5, 58744-3, 38879-5 ####[facility] LABCLIA [id number] [place] [address] [place] CO2 [Moles/Vol] 25 mmol/L Normal 22-30 [facility] Comment on above: Order Comment: Speci men Type: BLOOD SPECIMENOrdering Facility: [facility] Address: [address] [place] [address] Performed By: #### 1 988-5, 27754-6, 79404-1 ####[facility] LABCLIA [id number] [place] [address] [place] Creatinine [Mass/Vol] 0.72 mg/dL Low 0.73-1.22 [facility] Comment on above: Order Comment: Speci men Type: BLOOD SPECIMENOrdering Facility: [facility] Address: [address] Performed By: #### 1 988-5, 18540-8, 35511-5 ####[facility] LABIA [id number] [address] [place] ESTIMATED GLOMERULAR FILTRATION RATE 113 mL/min/1.73m??? Normal >=60 [facility] Comment on above: Order Comment: Marina ernst Type: BLOOD SPECIMENOrdering Facility: [facility] Address: [address] [place] [address] Result Comment: Yola mated Glomerular Filtration Rate [...] actual GFR. Performed By: #### 1 988-5, 71963-3, 33415-3 ####[facility] LABIA [id number] [address] [place] Glucose [Mass/Vol] 372 mg/dL High 74-99 [facility] Comment on above: Order Comment: Marina ernst Type: BLOOD SPECIMENOrdering Facility: [facility] Address: [address] [place] [address] Result Comment: The [place] Diabetes Association (ADA) provides guidance for cutoff [...] Standards of Medical Care in Diabetes 2016, [place] [employer]. Diabetes Care. 2016.39(Suppl 1). Performed By: #### 1 988-5, 55565-7, ####[facility] LABCLIA [id number] [place] [address] [place] Potassium [Moles/Vol] 4.5 mmol/L Normal 3.7-5.1 [facility] Comment on above: Order Comment: Speci men Type: BLOOD SPECIMENOrdering Facility: [facility] Address: [address] Performed By: #### 1 988-5, , ####[facility] LABCLIA [id number] [place] [address] [place] Protein [Mass/Vol] 7.5 g/dL Normal 6.3-8.0 [facility] Comment on above: Order Comment: Speci men Type: BLOOD SPECIMENOrdering Facility: [facility] Address: [address] Performed By: #### 1 988-5, , ####[facility] LABCLIA [id number] [place] [address] [place] Sodium [Moles/Vol] 133 mmol/L Low 136-144 [facility] Comment on above: Order Comment: Speci men Type: BLOOD SPECIMENOrdering Facility: [facility] Address: [address] [place] [address] Performed By: #### 1 988-5, , ####[facility] LABCLIA [id number] [place] [address] [place] Urea nitrogen [Mass/Vol] 15 mg/dL Normal 9-24 [facility] Comment on above: Order Comment: Speci men Type: BLOOD SPECIMENOrdering Facility: [facility] Address: [address] [place] [address] Performed By: #### 1 988-5, , ####[facility] LABCLIA [id number] [address] [place] Cyclic citrullinated peptide IgG Qnon 10-30-2022 CCP ANTIBODY IGG QUALITATIVE Negative Normal Negative [facility] Comment on above: Order Comment: Speci men Type: BLOOD SPECIMENOrdering Facility: [facility] Address: [address] [place] [address] Performed By: #### 3 3935-8 ####[facility] [id number] [place] [address] [place] ESR Westergren method (Bld) [Velocity]on 10-30-2022 ESR (Bld) [Velocity] 8 mm/h Normal 0-15 [facility] Comment on above: Order Comment: Speci men Type: BLOOD SPECIMENOrdering Facility: [facility] Address: [address] [place] [address] Performed By: #### 5 7021-8, 4537-7 ####[facility] [id number] [address] [place] No Panel Informationon 10-30 [facility] RHEUMATOID FACTOR BLon 10-30 Rheumatoid factor Qn <16 IU/mL [facility] Rheumatoid fact SerPl-aCncon 10-30-2022 Rheumatoid factor Qn [IU]/mL Normal <16 [facility] Comment on above: Order Comment: Speci men Type: BLOOD SPECIMENOrdering Facility: [facility] Address: [address] [place] [address] Performed By: #### 1 988-5, 02724-6, 80806-4 ####[facility] [id number] [place] [address] [place] Urinalysis complete panel (U )on 10-30-2022 Bilirubin Ql (U) Negative Negative [facility] Clarity (Unsp spec) Clear Clear [facility] Color (U) Light Yellow Yellow [facility] Epithelial cells LM.HPF (Urine sed) [#/Area] Few [facility] Glucose Test strip (U) [Mass/Vol] 4+ Abnormal Trace, Negative [facility] Hemoglobin Ql (U) Negative Negative, Trace [facility] Ketones Ql (U) 1+ Abnormal Trace, Negative [facility] Leukocyte esterase Test strip Ql (U) Negative Negative, 25 Onesimo/mL [facility] Nitrite Ql (U) Negative Negative [facility] pH (U) 5.5 [pH] 5.0 - 8.0 [facility] Protein (U) [Mass/Vol] Trace Trace, Negative [facility] RBC LM.HPF (Urine sed) [#/Area] 0-3 /HPF 0-3 /HPF [facility] Specific gravity (U) [Rel density] 1.041 High 1.005 - 1.030 [facility] Urobilinogen Ql (U) Negative Negative [facility] WBC LM.HPF (Urine sed) [#/Area] 0-5 /HPF 0-5 /HPF [facility] Bilirubin Ql (U) Negative Normal Negative [facility] Comment on above: Order Comment: Speci men Type: URINE SPECIMENOrdering Facility: [facility] Address: [address] [place] [address] Performed By: #### 2 4356-8 ####[facility] [id number] [place] [address] [place] Clarity (Unsp spec) Clear Normal Clear [facility] Comment on above: Order Comment: Speci men Type: URINE SPECIMENOrdering Facility: [facility] Address: [address] [place] [address] Performed By: #### 2 4356-8 ####[facility] LABIA [id number] [place] [address] [place] Color (U) Light Yellow Normal Yellow [facility] Comment on above: Order Comment: Speci men Type: URINE SPECIMENOrdering Facility: [facility] Address: [address] [place] [address] Performed By: #### 2 4356-8 ####[facility] LABIA [id number] [address] Epithelial cells LM.HPF (Urine sed) [#/Area] Few Normal [facility] Comment on above: Order Comment: Speci men Type: URINE SPECIMENOrdering Facility: [facility] Address: [address] [place] [address] Performed By: #### 2 4356-8 ####[facility] LABCLIA [id number] [address] [place] Glucose Test strip (U) [Mass/Vol] 4+ Abnormal Trace, Negative [facility] Comment on above: Order Comment: Speci men Type: URINE SPECIMENOrdering Facility: [facility] Address: [address] [place] [address] Performed By: #### 2 4356-8 ####[facility] LABCLIA [id number] [address] [place] Hemoglobin Ql (U) Negative Normal Negative, Trace [facility] Comment on above: Order Comment: Speci men Type: URINE SPECIMENOrdering Facility: [facility] Address: [address] [place] [address] Performed By: #### 2 4356-8 ####[facility] LABCLIA [id number] [address] [place] Ketones Ql (U) 1+ Abnormal Trace, Negative [facility] Comment on above: Order Comment: Speci men Type: URINE SPECIMENOrdering Facility: [facility] Address: [address] Performed By: #### 2 4356-8 ####[facility] LABCLIA [id number] [place] [address] [place] Leukocyte esterase Test strip Ql (U) Negative Normal Negative, 25 Onesimo/mL [facility] Comment on above: Order Comment: Speci men Type: URINE SPECIMENOrdering Facility: [facility] Address: [address] [place] [address] Performed By: #### 2 4356-8 ####[facility] LABCLIA [id number] [place] [address] [place] Nitrite Ql (U) Negative Normal Negative [facility] Comment on above: Order Comment: Speci men Type: URINE SPECIMENOrdering Facility: [facility] Address: [address] [place] [address] Performed By: #### 2 4356-8 ####[facility] LABIA [id number] [place] [address] [place] pH (U) 5.5 [pH] Normal 5.0-8.0 [facility] Comment on above: Order Comment: Speci men Type: URINE SPECIMENOrdering Facility: [facility] Address: [address] [place] [address] Performed By: #### 2 4356-8 ####[facility] LABIA [id number] [place] [address] [place] Protein (U) [Mass/Vol] Trace Normal Trace, Negative [facility] Comment on above: Order Comment: Speci men Type: URINE SPECIMENOrdering Facility: [facility] Address: [address] [place] [address] Performed By: #### 2 4356-8 ####[facility] LABIA [id number] [place] [address] [place] RBC LM.HPF (Urine sed) [#/Area] 0-3 /HPF Normal 0-3 /HPF [facility] Comment on above: Order Comment: Speci men Type: URINE SPECIMENOrdering Facility: [facility] Address: [address] [place], [place] [address] Performed By: #### 2 4356-8 ####[facility] LABIA [id number] [place] [address] [place] Specific gravity (U) [Rel density] 1.041 High 1.005-1.030 [facility] Comment on above: Order Comment: Speci men Type: URINE SPECIMENOrdering Facility: [facility] Address: [address] [place] [address] Performed By: #### 2 4356-8 ####[facility] LABIA [id number] [place] [address] [place] Urobilinogen Ql (U) Negative Normal Negative [facility] Comment on above: Order Comment: Speci men Type: URINE SPECIMENOrdering Facility: [facility] Address: [address] [place] [address] Performed By: #### 2 4356-8 ####[facility] [id number] [place] [address] [place] WBC LM.HPF (Urine sed) [#/Area] 0-5 /HPF Normal 0-5 /HPF [facility] Comment on above: Order Comment: Speci men Type: URINE SPECIMENOrdering Facility: [facility] Address: [address] [place] [address] Performed By: #### 2 4356-8 ####[facility] [id number] [place] [address] [place] XR HAND/WRIST SURVEY [...] IMPRESSION: No radiographic findings of inflammatory arthropathy. [employer] Worker: PSCB Transcribe Date/Time: Oct 30 2022 10:39A Dictated by : OLAYINKA SARGENT MD This examination was interpreted and the report reviewed and electronically signed by: OLAYINKA SARGENT MD on Oct 30 2022 10:39AM EST [id number] N Normal [facility] cCP IgG SerPl-aCncon 023 Cyclic citrullinated peptide IgG Qn <15 Normal <20 [facility] Comment on above: Order Comment: Speci men Type: BLOOD SPECIMENOrdering Facility: [facility] Address: [address] [place] [address] Performed By: #### 3 3935-8 ####[facility] LABCLIA [id number] [facility] [id number] CNOVon 10-19-2022 CNOV Office Visit (SPMESH ) BHAVESH CÁRDENAS ([id number]) 1975 M Date Time Provider Department 10/19/22 1:15 PM [facility] During [facility] visit today, we recorded the following information about you: Pulse Blood pressure Weight Height 85/minute 135/75 93 kg 1.626 m Olayinka Boyd PA-C 10/19/2022 1:38 PM Signed [facility] Low Back Pain - Chronic (> 12 weeks) Initial Exam SUBJECTIVE HISTORY OF PRESENT ILLNESS: Bhavesh Tere Cárdenas is a 46 year old male [...] LEFT Lateral (more content not included)... Normal [facility] XR hip RT min 2V(w/wo pelvis )*on 09-28-2022 XR hip RT min 2V(w/wo pelvis)* [facility] [employer] Other XR hip RT min 2V(w/wo pelvis)* [facility] [employer] Other XR hip RT min 2V(w/wo pelvis)* [address] [place] [address] [employer] Other XR hip RT min 2V(w/wo pelvis)* [place] [address] [employer] Other XR hip RT min 2V(w/wo pelvis)* XRay Report [employer] Other XR hip RT min 2V(w/wo pelvis)* Signed [employer] Other XR hip RT min 2V(w/wo pelvis)* Patient: Bhavesh Cárdenas MR#: [id number] [employer] Other XR hip RT min 2V(w/wo pelvis)* 7937 [employer] Other XR hip RT min 2V(w/wo pelvis)* : 1975 Acct:[id number] [employer] Other XR hip RT min 2V(w/wo pelvis)* Age/Sex: 46 / M ADM Date: 09/28/22 [employer] Other XR hip RT min 2V(w/wo pelvis)* Loc: [facility] Room: Type: [facility] [employer] Other XR hip RT min 2V(w/wo pelvis)* Attending Dr: Milton Valentine II, MD [employer] Other XR hip RT min 2V(w/wo pelvis)* Copies to: Milton Valentine MD [employer] Other XR hip RT min 2V(w/wo pelvis)* Ordering Provider: Milton Valentine MD [employer] Other XR hip RT min 2V(w/wo pelvis)* Date of Service: 09/28/22 [employer] Other XR hip RT min 2V(w/wo pelvis)* XR/XR hip RT min 2V(w/wo pelvis)*: Right hip pain [employer] Other XR hip RT min 2V(w/wo pelvis)* RIGHT HIP - 2 views: [employer] Other XR hip RT min 2V(w/wo pelvis)* CLINICAL HISTORY: Right groin pain for the past 6 months. No injury. [employer] Other XR hip RT min 2V(w/wo pelvis)* COMPARISON: None [employer] Other XR hip RT min 2V(w/wo pelvis)* AP view the pelvis and and crosstable lateral views of the right hip were obtained. There is no [employer] Other XR hip RT min 2V(w/wo pelvis)* evidence of fracture or dislocation. The hip joint spaces are symmetric. No prominent hypertrophy [employer] Other XR hip RT min 2V(w/wo pelvis)* is seen. There are no significant soft tissue abnormalities. [employer] Other XR hip RT min 2V(w/wo pelvis)* XR/XR hip RT min 2V(w/wo pelvis)* [employer] Other XR hip RT min 2V(w/wo pelvis)* IMPRESSION: [employer] Other XR hip RT min 2V(w/wo pelvis)* NO ACUTE BONY FINDINGS. [employer] Other XR hip RT min 2V(w/wo pelvis)* Impression dictated by: Polina Cabrera M.D.09/28/2022 2:28 PM [employer] Other XR hip RT min 2V(w/wo pelvis)* Dictation Location: [facility]-- [employer] Other XR hip RT min 2V(w/wo pelvis)* Transcribed By: WENDIE 09/28/22 142 [employer] Other XR hip RT min 2V(w/wo pelvis)* Dictated By: Polina Cabrera MD 09/28/22 1428 [employer] Other XR hip RT min 2V(w/wo pelvis)* Signed By: [employer] Other XR hip RT min 2V(w/wo pelvis)* 09/28/22 5951 [employer] Other MRI LSPINE WO CONon 08-18-20 MRI [...] by: DIANA GUZMÁN Date: 2022-08-18 16:57 Normal [facility] XR LSPINE 2_3 VIEWSon 2021 XR LSPINE [...] by: WASHINGTON DURAN Date: 2022-08-10 18:50 Normal [facility] Vital Signs Date Time Vital Sign Value Performing Clinician Facility 07-22-2024 15:29-0400 Body height 162.6 cm Denis Bellpatrick CINDER PITMAN Work Phone: [facility] 07-22-2024 15:29-0400 Body mass index (BMI) [Ratio] 40.37 kg/m2 Denis Dunlap [employer]INDER PITMAN Work Phone: [facility] 07-22-2024 15:29-0400 Body temperature 98.71 [degF] Denis Dunlap [employer]INDER PITMAN Work Phone: [facility] 07-22-2024 15:29-0400 Body weight 106.69 kg Denis Dunlap [employer]INDER PITMAN Work Phone: [facility] 07-22-2024 15:29-0400 Diastolic blood pressure 88 mm[Hg] Denis Dunlap [employer]INDER PITMAN Work Phone: [facility] 07-22-2024 15:29-0400 Heart rate 75 /min Denis Dunlap [employer]INDER PITMAN Work Phone: [facility] 07-22-2024 15:29-0400 Respiratory rate 18 /min Denis Dunlap CINDER PITMAN Work Phone: [facility] 07-22-2024 15:29-0400 SaO2% (BldA) [Mass fraction] 96 % Denis Dunlap CINDER PITMAN Work Phone: [facility] 07-22-2024 15:29-0400 Systolic blood pressure 140 mm[Hg] Denis Dunlap CINDER PITMAN Work Phone: [facility] 11-19-2023 14:55-0500 Body height 162.6 cm Shaikh Moi GREEN Work Phone: [facility] 11-19-2023 14:55-0500 Body mass index (BMI) [Ratio] 41.2 kg/m2 Shaikh Moi GREEN Work Phone: [facility] 11-19-2023 14:55-0500 Body temperature 98.4 [degF] Shaikh Moi GREEN Work Phone: [facility] 11-19-2023 14:55-0500 Body weight 108.86 kg Shaikh Moi GREEN Work Phone: [facility] 11-19-2023 14:55-0500 Diastolic blood pressure 90 mm[Hg] Shaikh Moi GREEN Work Phone: [facility] 11-19-2023 14:55-0500 Heart rate 74 /min Shaikh Moi GREEN Work Phone: [facility] 11-19-2023 14:55-0500 SaO2% (BldA) [Mass fraction] 98 % Shaikh Moi GREEN Work Phone: [facility] 11-19-2023 14:55-0500 Systolic blood pressure 140 mm[Hg] Shaikh Moi GREEN Work Phone: [facility] 09-13-2023 14:40-0500 Body height 163.83 cm Francis Barr Other [employer] Other 09-13-2023 14:40-0500 Body mass index (BMI) [Ratio] 40.39 kg/m2 Francis Barr Other [employer] Other 09-13-2023 14:40-0500 Body weight 108.41 kg Francis Barr Other [employer] Other 08-24-2023 14:24-0500 Body temperature 98.9 [degF] MD Shaikh Prater Work Phone: [facility] 08-24-2023 14:24-0500 Diastolic blood pressure 80 mm[Hg] MD Shaikh Prater Work Phone: [facility] 08-24-2023 14:24-0500 Heart rate 84 /min MD Shaikh Prater Work Phone: [facility] 08-24-2023 14:24-0500 Respiratory rate 20 /min MD Shaikh Prater Work Phone: [facility] 08-24-2023 14:24-0500 SaO2% (BldA) [Mass fraction] 96 % MD Shaikh Prater Work Phone: [facility] 08-24-2023 14:24-0500 Systolic blood pressure 168 mm[Hg] MD Shaikh Prater Work Phone: [facility] 08-24-2023 14:22-0500 Body height 162.56 cm MD Shaikh Prater Work Phone: [facility] 08-24-2023 14:22-0500 Body weight 109.1 kg MD Shaikh Prater Work Phone: [facility] 08-02-2023 14:05-0400 Body height 163.83 cm Carmen Washington Other [employer] Other 08-02-2023 14:05-0400 Body mass index (BMI) [Ratio] 40.39 kg/m2 Carmen Washington Other [employer] Other 08-02-2023 14:05-0400 Body temperature 97.7 [degF] Carmen Washington Other [employer] Other 08-02-2023 14:05-0400 Body weight 108.41 kg Carmen Washington Other [employer] Other 08-02-2023 14:05-0400 Diastolic blood pressure 76 mm[Hg] Carmen Felix Other [employer] Other 08-02-2023 14:05-0400 Respiratory rate 18 /min Carmen Perdomomaureen Other [employer] Other 08-02-2023 14:05-0400 SaO2% (BldA) [Mass fraction] 98 % Carmen Perdomomaureen Other [employer] Other 08-02-2023 14:05-0400 Systolic blood pressure 120 mm[Hg] Carmen Perdomomaureen Other [employer] [facility] [employer] Other 01-27-2023 10:40-0400 Body height 162.56 cm [employer] Kristina Bullimore Work Phone: [facility] 01-27-2023 10:40-0400 Body temperature 97.6 [degF] [employer] Kristina Bullimore Work Phone: [facility] 01-27-2023 10:40-0400 Body weight 96 kg [employer] Kristina Bullimore Work Phone: [facility] 01-27-2023 10:40-0400 Diastolic blood pressure 87 mm[Hg] [employer] Kristina Bullimore Work Phone: [facility] 01-27-2023 10:40-0400 Heart rate 86 /min [employer] Kristina Bullimore Work Phone: [facility] 01-27-2023 10:40-0400 Respiratory rate 18 /min [employer] Kristina Bullimore Work Phone: [facility] 01-27-2023 10:40-0400 SaO2% (BldA) [Mass fraction] 97 % [employer] Kristina Bullimore Work Phone: [facility] 01-27-2023 10:40-0400 Systolic blood pressure 143 mm[Hg] [employer] Kristina Bullimore Work Phone: [facility] 11-24-2022 10:01-0500 Body temperature 98.2 [degF] [facility] Work Phone: [facility] 11-24-2022 10:01-0500 Diastolic blood pressure 94 mm[Hg] [facility] Work Phone: [facility] 11-24-2022 10:01-0500 Heart rate 89 /min [facility] Work Phone: [facility] 11-24-2022 10:01-0500 Respiratory rate 18 /min [facility] Work Phone: [facility] 11-24-2022 10:01-0500 SaO2% (BldA) [Mass fraction] 97 % [facility] Work Phone: [facility] 11-24-2022 10:01-0500 Systolic blood pressure 140 mm[Hg] [facility] Work Phone: [facility] 11-15-2022 14:10-0500 Diastolic blood pressure 87 mm[Hg] Kb Tankha DO Work Phone: [facility] 11-15-2022 14:10-0500 Heart rate 90 /min Kb Tankha DO Work Phone: [facility] 11-15-2022 14:10-0500 Respiratory rate 18 /min Kb Tankha DO Work Phone: [facility] 11-15-2022 14:10-0500 SaO2% (BldA) [Mass fraction] 96 % Kb Tankha DO Work Phone: [facility] 11-15-2022 14:10-0500 Systolic blood pressure 121 mm[Hg] Kb Tankha DO Work Phone: [facility] 10-30-2022 09:31-0500 Body temperature 95.59 [degF] Santana Harris MD Work Phone: [facility] 10-30-2022 09:31-0500 Diastolic blood pressure 96 mm[Hg] Santana Harris MD Work Phone: [facility] [facility] 10-30-2022 09:31-0500 Heart rate 68 /min Santana Harris MD Work Phone: [facility] 10-30-2022 09:31-0500 Systolic blood pressure 144 mm[Hg] Santana Harris MD Work Phone: [facility] 10-19-2022 13:04-0500 Body height 162.6 cm Olayinka Boyd PA-C Work Phone: [facility] 10-19-2022 13:04-0500 Body weight 92.99 kg Olayinka GEORGE-Tere Work Phone: [facility] 10-19-2022 13:04-0500 Diastolic blood pressure 75 mm[Hg] Olayinka Boyd PA-C Work Phone: [facility] 10-19-2022 13:04-0500 Heart rate 85 /min Olayinka Boyd PA-C Work Phone: [facility] 10-19-2022 13:04-0500 SaO2% (BldA) [Mass fraction] 97 % Olayinka GEORGE-C Work Phone: [facility] 10-19-2022 13:04-0500 Systolic blood pressure 135 mm[Hg] Olaynika Boyd PA-C Work Phone: [facility] 09-28-2022 12:30-0500 Body height 163.83 cm Milton Valentine II Other [employer] Other 09-28-2022 12:30-0500 Body mass index (BMI) [Ratio] 34.47 kg/m2 Milton Valentine II Other [employer] Other 09-28-2022 12:30-0500 Body weight 92.53 kg Milton Valentine II Other [employer] Other 09-26-2022 11:00-0500 Body height 163.83 cm Francis Barr Other [employer] Other 09-26-2022 11:00-0500 Body mass index (BMI) [Ratio] 34.47 kg/m2 Francis Barr Other [employer] [facility] [employer] Other 09-26-2022 11:00-0500 Body weight 92.53 kg Francis Barr Other [employer] [facility] [employer] Other 07-20-2022 10:45-0400 Body height 163.83 cm Nahid Olexa Other [employer] [facility] [employer] Other 07-20-2022 10:45-0400 Body mass index (BMI) [Ratio] 36.5 kg/m2 Nahid Olexa Other [employer] [facility] [employer] Other 07-20-2022 10:45-0400 Body weight 97.98 kg Nahid Olexa Other [employer] Other Encounters Encounter Date Encounter Type Care Provider Facility Start: 08-06-2024 End: 08-06-2024 Refill Denis Dunlap CINDER PITMAN Work Phone: [facility] Comment on above: Moderate persistent asthma without complication (CMS/HCC) Start: 08-04-2024 End: 08-05-2024 Refill Chiara Dillon MA [facility] Comment on above: Moderate persistent asthma without complication (CMS/HCC) Type 2 diabetes donis itus without complication, with long-term current use of insulin (CMS/HCC); Uncontrolled type 2 diabetes mellitus with hyperglycemia (CMS/HCC); Moderate persistent asthma without complication (CMS/HCC) Start: 07-22-2024 End: 07-22-2024 Office outpatient visit 15 minutes Denis Dunlap CINDER PITMAN Work Phone: [facility] Comment on above: Moderate persistent asthma without complication (CMS/HCC) (Primary Dx); Chronic neck and back pain; Primary hypertension (CMS/HCC); Type 2 diabetes mellitus without complication, with long-term current use of insulin (CMS/HCC); Uncontrolled type 2 diabetes mellitus with hyperglycemia (CMS/HCC); Mixed hyperlipidemia (CMS/HCC); Class 3 severe obesity due to excess calories with serious comorbidity and body mass index (BMI) of 40.0 to 44.9 in adult ([facility]) Start: 07-22-2024 End: 07-22-2024 ambulatory DENIS DUNLAP Not Available Start: 07-22-2024 End: 07-22-2024 Bamboo flowsheet Denis Dunlap CINDER PITMAN Work Phone: [facility] Start: 07-22-2024 End: 07-22-2024 Bamboo flowsheet Denis Dunlap CINDER PITMAN Work Phone: [facility] Start: 07-21-2024 End: 07-28-2024 Refill Gali Chatterjee [facility] Comment on above: Chronic neck and vick k pain; Primary hypertension ([facility]/HCC) Start: 07-15-2024 End: 07-15-2024 Orders Only Denis Dunlap CINDER PITMAN Work Phone: [facility] Comment on above: Chronic pain syndrom e (Primary Dx); RLS (restless legs syndrome) Start: 07-08-2024 End: 07-14-2024 Refill J Luis Cárdenas MD Work Phone: [facility] Comment on above: Metabolic syndrome X (Primary Dx); Uncontrolled type 2 diabetes mellitus with hyperglycemia (CMS/HCC); Class 3 severe obesity due to excess calories with serious comorbidity and body mass index (BMI) of 40.0 to 44.9 in adult ([facility]) Uncontrolled type 2 diabetes mellitus with hyperglycemia (CMS/HCC) Start: 06-26-2024 End: 06-26-2024 ambulatory DENIS LONGOK Not Available Start: 06-11-2024 End: 06-11-2024 ambulatory ANNIE BRISCOE Not Available Start: 05-27-2024 End: 05-27-2024 ambulatory DENIS DUNLAP Not Available Start: 04-21-2024 End: 04-21-2024 ambulatory MEYER FAWWAD Not Available Start: 04-16-2024 ambulatory ANANT SPANN [facility] Start: 03-06-2024 End: 03-06-2024 ambulatory SHAIKH KATIEWWAD Not Available Start: 03-05-2024 ambulatory [facility] Start: 03-05-2024 Encounter for other general examination [facility] Start: 02-19-2024 End: 02-19-2024 ambulatory [facility] Start: 02-19-2024 End: 02-19-2024 ambulatory [facility] Start: 01-22-2024 End: 01-22-2024 ambulatory MEYER FAWWAD Not Available Start: 12-17-2023 End: 12-17-2023 ambulatory MEYER FAWWAD Not Available Start: 11-30-2023 End: 11-30-2023 ambulatory [facility] Start: 11-21-2023 End: 11-21-2023 ambulatory [facility] Start: 11-19-2023 End: 11-19-2023 ambulatory MEYER FAWWAD Not Available Start: 11-19-2023 End: 11-19-2023 Office outpatient visit 25 minutes Shaikh Moi GREEN Work Phone: [facility] IM Comment on above: Uncontrolled type 2 diabetes mellitus with hyperglycemia (CMS/HCC) (Primary Dx); Chronic neck and back pain; Primary hypertension (CMS/HCC); Low back pain of thoracolumbar region with sciatica Start: 11-19-2023 Domenicboo flowsheet Shaikh Moi GREEN Work Phone: [facility] Start: 11-19-2023 Bamboo flowsheet Shaikh Moi GREEN Work Phone: [facility] Start: 11-15-2023 Orders Only Shaikh Moi GREEN Work Phone: [facility] Comment on above: Metabolic syndrome X (Primary Dx); Pure hypertriglyceridemia (CMS/HCC) Start: 11-08-2023 Orders Only Shaikh Moi GREEN Work Phone: [facility] Comment on above: Moderate persistent asthma without complication (CMS/HCC) (Primary Dx) Start: 11-05-2023 End: 11-05-[facility] Start: 10-29-2023 End: 10-29-2023 ambulatory Francis Barr Other [employer] [facility] [employer] Other Start: 10-29-2023 Telephone encounter Francis Barr [facility] Neurosurgery Start: 10-16-2023 End: 10-16-2023 ambulatory SHAIKH MOI Not Available Start: 09-24-2023 End: 09-24-2023 ambulatory Francis Barr Other [employer] Other Start: 09-24-2023 Telephone encounter Francis Barr [facility] Pain Management Start: 09-13-2023 End: 09-13-2023 ambulatory Francis Barr Other [employer] Other Start: 09-13-2023 Office outpatient vi sit 15 minutes Francis Barr [facility] Neurosurgery Start: 08-24-2023 End: 08-24-2023 Emergency department patient visit Shaikh Moi Facility:[facility] Start: 08-24-2023 End: 08-24-2023 Emergency department patient visit MD Shaikh Prater Work Phone: [facility]-Emergency Room Work Phone: Start: 08-02-2023 End: 08-02-2023 ambulatory Carmen [place] Other [facility] [employer] Other Start: 08-02-2023 Office outpatient vi sit 15 minutes Carmen Washington [facility] Urgent Care [facility] Start: 07-13-2023 End: 07-13-2023 ambulatory Shaikh Moi Facility:[facility] Start: 07-13-2023 End: 07-13-2023 Patient encounter procedure MD Shaikh Prater Work Phone: [facility]-Physical Therapy [place] Start: 07-04-2023 Refill Kb Olivo Work Phone: Neurology Pain Comment on above: Refill Request (Traz odone Rx); Refill Request; Refill Request Start: 06-21-2023 End: 06-21-2023 ambulatory Tracy Khanwes Facility:[facility] Start: 06-21-2023 End: 06-21-2023 ambulatory MD Shaikh Prater Work Phone: [facility] Work Phone: Start: 06-21-2023 End: 06-21-2023 Patient encounter procedure MD Shaikh Prater Work Phone: [facility]-MRI [facility] [place] Work Phone: Start: 05-21-2023 End: 05-22-2023 ambulatory Terri Abrams MD Facility:[facility] Start: 05-16-2023 End: 05-16-2023 ambulatory Shaikh Mio Facility:[facility] Start: 05-16-2023 End: 05-16-2023 ambulatory MD Shaikh Prater Work Phone: [facility] Work Phone: Start: 05-16-2023 End: 05-16-2023 Patient encounter procedure MD Shaikh Prater Work Phone: [facility]-MRI [facility] [place] Work Phone: Start: 04-16-2023 Refill Lori Woody RN Neurolog y Pain Comment on above: Refill Request Start: 03-28-2023 Telephone encounter Kbwaylon Ponce yates DO Work Phone: Pain Recovery Comment on above: Electronic Communica tion Start: 03-27-2023 Telephone encounter [facility] Provider Fam n Recovery Comment on above: Electronic Communica tion Start: 03-03-2023 End: 03-03-2023 ambulatory HASMUKH DIAB . Facility: Start: 02-19-2023 Telephone encounter Kb Tank yates DO Work Phone: Pain Recovery Comment on above: Patient Question Start: 02-13-2023 End: 02-13-2023 ambulatory KB TANKHA Facility:[facility] Start: 02-09-2023 Telephone encounter Kbwaylon Ponce yates DO Work Phone: Pain Recovery Comment on above: Patient Question Start: 02-06-2023 ambulatory Kbwaylon Lorenzo D O Work Phone: Neurology Pain Comment on above: need advice Start: 01-27-2023 End: 01-27-2023 Emergency department patient visit Shaikh Moi Facility:[facility] Start: 01-27-2023 End: 01-27-2023 Emergency department patient visit [employer]BC Kristina Ninorajiyanira Work Phone: [facility]-Emergency Room Work Phone: Start: 01-24-2023 End: 01-24-2023 ambulatory KB [facility] Facility:[facility] Start: 12-28-2022 End: 12-28-2022 [facility] [place] Castellanos Therapist Work Phone: Pain Recovery Comment on above: 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 Start: 11-28-2022 ambulatory Kb Lorenzo D O Work Phone: Neurology Pain Comment on above: Bhavesh Cárdenas Injec tion schedule Start: 11-24-2022 ambulatory KB LORENZO Facility:[facility] Start: 11-24-2022 End: 11-24-2022 Patient encounter procedure Spine Med Procedure Main Work Phone: [facility] Comment on above: APPOINTMENT CANCELLE D (Primary Dx) Start: 11-15-2022 End: 11-15-2022 ambulatory OLAYINKA BOYD Facility:[facility] Start: 11-15-2022 End: 11-15-2022 Patient encounter procedure Kb Lorenzo DO Work Phone: Neurology Pain Comment on above: Chronic pain syndrom e (Primary Dx); Chronic bilateral low back pain without sciatica; Disturbance of sleep pattern associated with pain; Lumbar spondylosis; Sacroiliitis (HCC) Start: 10-30-2022 End: 10-31-2022 ambulatory SANTANA HARRIS Facility:[facility] Start: 10-30-2022 End: 10-30-2022 Subsequent hospital [...] Start: 10-19-2022 End: 10-19-2022 ambulatory OLAYINKA BOYD Facility:[facility] Start: 10-19-2022 End: 10-19-2022 Patient encounter procedure Olayinka Boyd PA-C Work Phone: Spine Medicine Comment on above: Chronic bilateral lo w back pain without sciatica (Primary Dx) Start: 10-16-2022 End: 10-16-2022 ambulatory Milton Valentine II Other [employer] [facility] [employer] Other Start: 10-16-2022 Telephone encounter Milton Valentine II [facility] Sports Information Director Start: 09-28-2022 FQHC visit new patient Milton velazquez II [facility] Start: 09-28-2022 End: 09-28-2022 ambulatory MD Carmen Wheatley Work Phone: [facility] Work Phone: Start: 09-28-2022 End: 09-28-2022 Patient encounter procedure MD Carmen Wheatley Work Phone: [facility]-XRay [facility] Start: 09-26-2022 End: 09-26-2022 ambulatory Francis Barr Other [employer] [facility] [employer] Other Start: 09-26-2022 Office outpatient ne w 30 minutes Francis Barr [facility] Neurosurgery Start: 08-18-2022 End: 08-19-2022 ambulatory MEYER H FAWWAD Facility:[facility] Start: 08-14-2022 End: 08-15-2022 ambulatory MEYER H FAWWAD Facility:[facility] Start: 08-10-2022 End: 08-11-2022 ambulatory MEYER H FAWWAD Facility:[facility] Start: 07-20-2022 End: 07-20-2022 ambulatory Nahid Olexa Other [facility] Other Start: 07-20-2022 Office outpatient ne w 30 minutes Nahid Olexa [facility] Start: 07-13-2022 End: 07-13-2022 ambulatory ARCELIA DIAZ . Facility:[facility] Procedures Date Procedure Procedure Detail Performing Clinician [...] lumbar spin e, four or more views [employer]BC Kristina Trungimore Work Phone: Start: 11-24-2022 Gluc bld gluc mntr d ev cleared fda spec home use [facility] Provider Start: 10-30-2022 Joint survey single view 2 or more joints Santana Harris MD Work Phone: Start: 09-28-2022 Plain X-ray of right hip MD Carmen Wheatley Work Phone: Plan of Treatment Date Care Activity Detail Author Start: 10-30-2025 DIABETES SCREEN DIABETES SCREEN [facility] Start: 10-30-2025 Diabetes Screening Diabetes Screening [facility] Start: 09-07-2025 Screening for malignant neoplasm of colon [facility] Start: 06-27-2025 Urine screening for protein Diabetes: Urine Protein Screening [facility] Start: 06-10-2025 End: 06-10-2025 Patient encounter procedure 06/10/2025 3:00 PM EDT Office Visit [facility] [address] [place] [address] Annie Briscoe PA [address] [place], [place] [id number] [facility] Start: 02-27-2025 Glaucoma screening Diabetes: Retinopathy Screening [facility] Start: 11-12-2024 Urine screening for protein Diabetes: Urine Protein Screening [facility] Start: 08-26-2024 End: 08-26-2024 Patient encounter procedure 08/26/2024 2:30 PM EST [facility] [address] [place] [address] Denis Dunlap NP [address] [place] [id number] [facility] Start: 07-22-2024 End: 07-22-2024 Patient encounter procedure [facility] Comment on above: Arrived Start: 07-22-2024 End: 07-22-2025 Lipid 1996 panel - Serum or Plasma Lipid panel Lab Routine Mixed hyperlipidemia (CMS/HCC) Expected: 07/22/2024 (Approximate), Expires: 07/22/2025 [facility] Comment on above: Expected: 07/22/2024 (Approximate), Expi res: 07/22/2025 Start: 07-22-2024 End: 07-22-2025 TSH W/REFLEX TO FT4 TSH W/REFLEX TO FT4 Lab Routine Mixed hyperlipidemia (CMS/HCC) Expected: 07/22/2024 (Approximate), Expires: 07/22/2025 [facility] Work Phone: Comment on above: Expected: 07/22/2024 (Approximate), Expi res: 07/22/2025 Start: 05-12-2024 Hemoglobin A1c measurement Diabetes: Hemoglobin A1C [facility] Start: 02-16-2024 DIABETES SCREEN DIABETES SCREEN [facility] Start: 12-17-2023 End: 12-17-2023 Patient encounter procedure 12/17/2023 2:30 PM EDT Office Visit [facility] [address] [place] [address] Shaikh Prater MD [address] [place] [phone] [facility] Start: 11-19-2023 End: 11-19-2023 Patient encounter procedure 11/19/2023 2:45 PM EST Office Visit [facility] [address] [place] [address] Shaikh Prater MD [address] [place] [phone] [facility] Start: 11-15-2023 End: 11-15-2024 Lipid 1996 panel - Serum or Plasma Lipid panel Lab Routine Metabolic syndrome X Pure hypertriglyceridemia (CMS/HCC) Expected: 11/15/2023 (Approximate), Expires: 11/15/2024 [facility] Work Phone: Comment on above: Expected: 11/15/2023 (Approximate), Expi res: 11/15/2024 Start: 10-08-2023 Hemoglobin A1c measurement Diabetes: Hemoglobin A1C [facility] Start: 06-21-2023 MR lumbar spine wo con MR lumbar spine wo con [facility] Start: 06-21-2023 MR Lumbar spine WO contrast [facility] Start: 06-08-2023 Influenza vaccination [facility] Start: 10-30-2022 End: 12-30-2022 MIKAYLA BY IFA WITH REFLEX [facility] Work Phone: Comment on above: Expected: 10/30/2022, Expires: 3 Start: 10-30-2022 End: 12-30-2022 Cyclic citrullinated peptide IgG Ab [Units/volume] in Serum or Plasma [facility] Work Phone: Comment on above: Expected: 10/30/2022, Expires: 3 Start: 10-30-2022 End: 12-30-2022 Erythrocyte sedimentation rate [facility] Work Phone: Comment on above: Expected: 10/30/2022, Expires: 3 Start: 10-08-2022 DEPRESSION ASSESSMENT DEPRESSION ASSESSMENT [facility] Start: 06-08-2022 Influenza vaccination INFLUENZA (#1) [facility] Start: 12-14-2021 Urine screening for protein Diabetes: Urine Protein Screening [facility] Start: 04-08-2021 COVID-19 VACCINE (3 - Booster for Pfizer series) COVID-19 VACCINE (3 - Booster for Pfizer series) [facility] Start: 04-08-2021 COVID-19 VACCINE (3 - Pfizer series) COVID-19 VACCINE (3 - Pfizer series) [facility] Start: 02-11-2021 COVID-19 VACCINE (2 - Pfizer series) COVID-19 VACCINE (2 - Pfizer series) [facility] Start: 01-04-2020 Urine microalbumin profile [facility] Start: 2018 COLOGUARD (FIT-DNA) COLOGUARD (FIT-DNA) [facility] Start: 2018 Colonoscopy COLONOSCOPY [facility] Start: 2018 COLORECTAL CANCER SCREENING COLORECTAL CANCER SCREENING [facility] Start: [address] COLONOGRAPHY [facility] Start: 2018 FECAL OCCULT BLOOD FECAL OCCULT BLOOD [facility] Start: 2018 SIGMOIDOSCOPY SIGMOIDOSCOPY [facility] Start: 01-04-2010 Urine microalbumin profile DTAP,TDAP,TD (1 - Tdap) [facility] Start: 2008 Lipid 1996 panel - Serum or Plasma Lipid Screening [facility] Start: 2008 LIPID SCREEN LIPID SCREEN [facility] Start: 1992 Urine microalbumin profile DTAP,TDAP,TD (1 - Tdap) [facility] Start: 1991 HEPATITIS C SCREENING HEPATITIS C SCREENING [facility] Start: 1991 HIV SCREENING HIV SCREENING [facility] Start: 1973 HEPATITIS B (1 of 3 - 3-dose series) HEPATITIS B (1 of 3 - 3-dose series) [facility] Start: 1973 Hepatitis B Vaccine (1 of 3 - 3-dose series) Hepatitis B Vaccine (1 of 3 - 3-dose series) [facility] Start: 1973 Screening for malignant neoplasm of colon [facility] Patient Education [facility] Work Phone: Patient referral [facility] Work Phone: SPINE INTERVENTION PROCEDURE SPINE INTERVENTION PROCEDURE Procedures Routine Sacroiliitis (HCC) Ordered: 11/15/2022 [facility] Work Phone: Comment on above: Ordered: 11/15/2022 [facility] Immunizations Immunization Date Immunization Notes Care Provider [facility] 05-15-2024 influenza, seasonal, injectable Shakeel Vargas MA [facility] 07-13-2023 SARS-COV-2 (COVID-19 ) vaccine, mRNA, spike protein, LNP, PF, 50 mcg/0.5 mL Shaikh Moi GREEN Work Phone: [facility] 06-27-2023 Influenza, injectabl e, Madin [place] Canine Kidney, preservative free, quadrivalent Shaikh Moi GREEN Work Phone: [facility] 02-11-2021 COVID-19 original vaccine, age 12+ yr, monovalent (PFIZER-BIONTECH - PURPLE TOP) Santana Harris MD Work Phone: [facility] 01-21-2021 COVID-19 original vaccine, age 12+ yr, monovalent (PFIZER-BIONTECH - PURPLE TOP) Santana Harris MD Work Phone: [facility] 07-07-2020 influenza, injectabl e, quadrivalent, preservative free Santana Harris MD Work Phone: [facility] 07-07-2020 influenza virus vacc ine, unspecified formulation Kb Lorenzo DO Work Phone: [facility] 09-29-2019 influenza, injectabl e, quadrivalent, contains preservative Shaikh Moi GREEN Work Phone: [facility] 08-13-2019 influenza, injectabl e, quadrivalent, contains preservative Shaikh Moi GREEN Work Phone: [facility] 08-24-2017 influenza, injectabl e, quadrivalent, preservative free Santana Harris MD Work Phone: [facility] 07-07-2016 influenza, injectabl e, quadrivalent, preservative free Santana Harris MD Work Phone: [facility] 07-02-2015 influenza, injectabl e, quadrivalent, preservative free Santana Harris MD Work Phone: [facility] 07-02-2015 influenza, seasonal, injectable, preservative free Shaikh Moi GREEN Work Phone: [facility] 08-05-2014 influenza, seasonal, injectable, preservative free Santana Harris MD Work Phone: [facility] 07-18-2013 influenza, seasonal, injectable, preservative free Santaan Harris MD Work Phone: [facility] 07-18-2013 seasonal influenza, intradermal, preservative free Shaikh Moi GREEN Work Phone: [facility] 07-05-2012 influenza, seasonal, injectable, preservative free Shaikh Moi GREEN Work Phone: [facility] 09-04-2011 influenza virus vacc ine, whole virus Shaikh Moi GREEN Work Phone: [facility] 07-07-2010 influenza virus vacc ine, whole virus Shaikh Moi GREEN Work Phone: [facility] 01-03-2010 diphtheria, tetanus toxoids and pertussis vaccine Shaikh Moi GREEN Work Phone: [facility] 01-03-2010 tetanus and diphther ia toxoids, adsorbed, preservative free, for adult use (5 Lf of tetanus toxoid and 2 Lf of diphtheria toxoid) Santana Harris MD Work Phone: [facility] 01-03-2010 tetanus toxoid, redu los diphtheria toxoid, and acellular pertussis vaccine, adsorbed Santana Harris MD Work Phone: [facility] Payers Date Payer Category Payer Medicaid [id number] 2.1 [id number] 2023 Self-pay [id number] 2022 Private Health Insurance [id number] 2022 Medicaid [id number] 1973 Unknown [id number] [id number]3 1973 Unknown [id number] 2.16.840.1.156782.3.579.2.593 1973 Unknown [id number] 2.16.840.1.292865.3.579.2.593 1973 Unknown [id number] 2.16.840.1.143127.3.579.2.593 1973 Unknown [id number] 2.16.840.1.281195.3.579.2.593 1973 Unknown [id number] 2.16.840.1.164144.3.579.2.593 1973 Unknown [id number] 2.16.840.1.906156.3.579.2.593 1973 Unknown [id number] 2.16.840.1.804607.3.579.2.196 1973 Unknown [id number] 2.16.840.1.646987.3.579.2.1259 1973 Unknown [id number] 2.16.840.1.786804.3.579.2.1259 1973 Unknown [id number] 2.16.840.1.288881.3.579.2.1259 1973 Unknown [id number] 2.16.840.1.289040.3.579.2.1259 1973 Unknown [id number] 2.16.840.1.808373.3.579.2.1258 1973 Unknown [id number] 2.16.840.1.171872.3.579.2.1259 1973 Unknown [id number] 2.16.840.1.005612.3.579.2.1259 1973 Unknown [id number] 2.16.840.1.684019.3.579.2.1259 1973 Unknown [id number] 2.16.840.1.345463.3.579.2.1259 1973 Unknown [id number] 2.16.840.1.126889.3.579.2.1259 1959 Medicaid [id number] Unknown [id number] Unknown [place] BC/BS [id number] Unknown [id number] 2.16.840.1.338220.3.579.2.531 Unknown [id number] 2.16.840.1.722312.3.579.2.531 Unknown [id number] Unknown [id number] Unknown [id number] Social History Date Type Detail Facility Unknown if ever smoked [facility] Other Start: 11-15-2022 End: 06-26-2024 Sex Assigned At [facility] Start: 1975 Sex Assigned At Male F [facility] Start: 10-19-2022 End: 11-19-2023 Tobacco smoking status [facility] Never smoked tobacco [facility] Start: 10-19-2022 End: 06-26-2024 Tobacco use and exposure Smokeless tobacco non-user [facility] Start: 1975 Sex Assigned At Not on file [facility] Start: 01-27-2023 End: 06-26-2024 Tobacco smoking status TXIS Ex-smoker (finding) [facility] Start: 11-15-2022 End: 06-26-2024 History of Social function [facility] Adult Depression Screening Assessment 2 [facility] Start: 10-16-2023 End: 11-19-2023 Alcohol intake Lifetime non-drinker (finding) [facility] Are you now , , , , never or living with a partner? Refused [facility] Start: 09-17-2023 Alcohol Comment caffeine: 1-2 cups per day [facility] History of tobacco use Current smoker [facility] History of tobacco use Cigarette Smoker [facility] Start: 06-26-2024 Alcoholic beverage intake Current drinker of alcohol (finding) [facility] How often to you hav e a drink containing alcohol? 4 or more times a week [facility] How many standard drinks containing alcohol do you have on a typical day? 3 or 4 [facility] How often do you hav e 6 or more drinks on 1 occasion? Never [facility] Start: 06-10-2024 Alcohol Comment caffeine: 3-4 cups per day [facility] NEGATED: Highlighted rowStart: DESIREF History of tobacco use Passive smoker [facility] Medical Equipment Procedure Code Equipment Code Equipment Origin al Text Equipment Identifier Dates Use as instructed [id number] Start: 11-19-2023 End: 11-18-2024 Clinical Notes 08-08-2021 to 08-04-2024 Telephone Encounter - Chiara Dillon MA - 08/04/2024 9:54 AM EDTTelephone Encounter - Chiara Dillon MA - 08/04/2024 9:54 AM Eun Dunlap NP - 07/28/2024 9:09 PM EDTPatient Instructions Note Date & Type Note Facility 08-04-2024 Telephone encounter Note Pt needs a refill for his Symbicort. He also states he needs a new script for his Freestyle liv 2 but not a sensor, he needs a new transmitter. REAL:07/22/2024 NOV:08/26/2024 [facility] 08-04-2024 Miscellaneous Notes Pt needs a refill for his Symbicort. He also states he needs a new script for his Freestyle liv 2 but not a sensor, he needs a new transmitter. REAL:07/22/2024 NOV:08/26/2024 documented in this encounter [facility] 07-28-2024 History of Presen t illness Narrative Associated Problem(s): Uncontrolled type 2 diabetes mellitus with hyperglycemia ([facility]) Is currently taking Mounjaro 5mg Metformin 1,000mg BID Glipizide XL 10mg Daily Lantus 40u Nightly DM eye exam done- 11/2023 Most recent labs: hemoglobin A1C 11.5% before starting mounjaro Average FSBS range from BGs have been labile ranging between 100 and 150 Reports BG levels have improved drastically since starting mounjaro. No episode of hypoglycemia No medication adverse [...] persistent hypoglycemia/hyperglycemia on home glucose monitoring noted. Consider stopping glipizide and decreasing lantus. Education: Check blood sugars daily, notify if <70 or >200. Take medications (pills or insulin) as directed. Monitor for s/s of hypoglycemia (sweaty, dizziness, nausea, vomiting, or shakiness). Watch for increase in thirst, urination, or appetite. Inspect feet frequently monitoring for open wounds , and also recommend yearly eye exam. Pt should attempt to remain as physically active as chronic conditions allow, as well as trying to follow a diet low in carbohydrates, and simple sugars. Associated Problem(s): Class 3 severe obesity due to excess calories with serious comorbidity in adult ([facility]) Currently on Mounjaro 2.5mg Increased dose today to 5mg Discussed with patient their BMI (actual, verses recommended). We have also discussed lifestyle modifications: attempts to perform physical activity as chronic conditions allow, also to monitor dietary intake: increasing protein/fruits/veggies and lowering carb intake (unless contraindicated). Limit sodas, juices, and sugary drinks. Also discussed oral medications that can be utilized for weight loss, as well as surgical options for weight loss. Associated Problem(s): Primary hypertension (CMS/HCC) Currently taking Is taking Amlodipine 5mg PO Daily. Checks BP at home; Averages are 120's. Denies orthostatic changes, dizziness, cough, shortness of breath, swelling in extremities. Continue current regimen. Given BP log, advised pt to record BP and bring log back with them to next visit. Associated Problem(s): Moderate persistent asthma without complication (CMS/HCC) Currently taking Symbicort. Reports needing to use rescue inhlaer 2-3 times per day recently. Feels asthma symptoms are not well controlled at this time. Will try adding Airsupra- ICS/NALLELY combo or (Fluticasone if insurance denies) Continue Symbicort as directed. Associated Problem(s): Hyperlipidemia (CMS/HCC) Lipid panel reviewed with patient. Triglycerides extremely elevated. Pt declines initiating statin therapy at this time. Images from the original note were not included. Subjective Patient ID: Bhavesh Cárdenas is a 48 y.o. male who presents for No chief complaint on file.. HPI DM: Review of Systems Constitutional: Negative for activity change, appetite change, chills, diaphoresis, fatigue, fever and unexpected weight change. HENT: Negative for congestion, ear pain, rhinorrhea, sinus pressure, sinus pain, sneezing, sore throat, trouble swallowing and voice change. Eyes: Negative for visual disturbance. Respiratory: Negative for cough, chest tightness, shortness of breath and wheezing. Cardiovascular: Negative for chest pain, palpitations and leg swelling. Gastrointestinal: Negative for abdominal distention, abdominal pain, blood in stool, constipation, diarrhea and vomiting. Genitourinary: Negative for decreased urine volume, dysuria, flank pain, frequency, hematuria and urgency. Musculoskeletal: Positive for back pain and neck pain. Negative for arthralgias, gait problem, joint swelling and myalgias. Skin: Negative for rash. Neurological: Negative for dizziness, tremors, syncope, weakness, light-headedness and headaches. Psychiatric/Behavioral: Negative for decreased concentration and suicidal ideas. The patient is not nervous/anxious. Hematological: Does not bruise/bleed easily. Endocrine: Negative for cold intolerance, heat intolerance, polydipsia, polyphagia and polyuria. Objective Physical Exam Vitals reviewed. Constitutional: Appearance: Normal appearance. HENT: Head: Normocephalic and atraumatic. Right Ear: Tympanic membrane normal. Left Ear: Tympanic membrane normal. Nose: Nose normal. Mouth/Throat: Mouth: Mucous membranes are moist. Pharynx: Oropharynx is clear. Eyes: Pupils: Pupils are equal, round, and reactive to light. Cardiovascular: Rate and Rhythm: Normal rate and regular rhythm. Pulses: Normal pulses. Heart sounds: Normal heart sounds. Pulmonary: Effort: Pulmonary effort is normal. Breath sounds: Normal breath sounds. Abdominal: General: Abdomen is flat. Bowel sounds are normal. Palpations: Abdomen is soft. Musculoskeletal: General: Normal range of motion. Cervical back: Normal range of motion. Skin: General: Skin is warm and dry. Capillary Refill: Capillary refill takes less than 2 seconds. Neurological: General: No focal deficit present. Mental Status: He is alert and oriented to person, place, and time. Psychiatric: Mood and Affect: Mood normal. Behavior: Behavior normal. Assessment/Plan Problem List Items Addressed This Visit Hyperlipidemia ([facility]) Lipid panel reviewed with patient. Triglycerides extremely elevated. Pt declines initiating statin therapy at this time. Relevant Orders TSH W/REFLEX TO FT4 Lipid panel Moderate persistent asthma without complication ([facility]) - Primary Currently taking Symbicort. Reports needing to use rescue inhlaer 2-3 times per day recently. Feels asthma symptoms are not well controlled at this time. Will try adding Airsupra- ICS/NALLELY combo or (Fluticasone if insurance denies) Continue Symbicort as directed. Type 2 diabetes mellitus without complication ([facility]) Relevant Medications Tirzepatide (Mounjaro) 5 MG/0.5ML solution auto-injector Uncontrolled type 2 diabetes mellitus with hyperglycemia ([facility]) Is currently taking Mounjaro 5mg Metformin 1,000mg BID Glipizide XL 10mg Daily Lantus 40u Nightly DM eye exam done- 11/2023 Most recent labs: hemoglobin A1C 11.5% before starting mounjaro Average FSBS range from BGs have been labile ranging between 100 and 150 Reports BG levels have improved drastically since starting mounjaro. No episode of hypoglycemia No medication adverse [...] persistent hypoglycemia/hyperglycemia on home glucose monitoring noted. Consider stopping glipizide and decreasing lantus. Education: Check blood sugars daily, notify if <70 or >200. Take medications (pills or insulin) as directed. Monitor for s/s of hypoglycemia (sweaty, dizziness, nausea, vomiting, or shakiness). Watch for increase in thirst, urination, or appetite. Inspect feet frequently monitoring for open wounds , and also recommend yearly eye exam. Pt should attempt to remain as physically active as chronic conditions allow, as well as trying to follow a diet low in carbohydrates, and simple sugars. Relevant Medications Tirzepatide (Mounjaro) 5 MG/0.5ML solution auto-injector Primary hypertension ([facility]) Currently taking Is taking Amlodipine 5mg PO Daily. Checks BP at home; Averages are 120's. Denies orthostatic changes, dizziness, cough, shortness of breath, swelling in extremities. Continue current regimen. Given BP log, advised pt to record BP and bring log back with them to next visit. Relevant Medications amLODIPine (Norvasc) 5 MG tablet Class 3 severe obesity due to excess calories with serious comorbidity in adult (CMS/HCC) Currently on Mounjaro 2.5mg Increased dose today to 5mg Discussed with patient their BMI (actual, verses recommended). We have also discussed lifestyle modifications: attempts to perform physical activity as chronic conditions allow, also to monitor dietary intake: increasing protein/fruits/veggies and lowering carb intake (unless contraindicated). Limit sodas, juices, and sugary drinks. Also discussed oral medications that can be utilized for weight loss, as well as surgical options for weight loss. Other Visit Diagnoses Chronic neck and back pain documented in this encounter [facility] 07-28-2024 Telephone encounter Note Patient said when he was here last week he asked for this prescription (pregabalin) to be refilled and it still hasn't been and now he is out. He uses [facility] for his pharmacy. [facility] 07-28-2024 Miscellaneous Notes Patient said when he was here last week he asked for this prescription (pregabalin) to be refilled and it still hasn't been and now he is out. He uses [facility] for his pharmacy. documented in this encounter [facility] 07-22-2024 Instructions Denis Dunlap NP - 07/22/2024 3:30 PM EDT FASTING labs ordered. Nothing to eat or drink for 12 hours prior to blood draw. Water and black coffee ok. documented in this encounter [facility] 07-10-2024 Telephone encounter Note Pt called back, [facility] pharmacy never received his order for the Lantus 40 units. Could you resend?? I spoke with pharmacy and they confirmed they never received the script. [facility] 07-10-2024 Miscellaneous Notes Pt called back, [facility] never received his order for the Lantus 40 units. Could you resend?? I spoke with pharmacy and they confirmed they never received the script. Attempted to return Pts call, Spoke to pharmacy yesterday, he needs to call his insurance. He also would like a refill on his Oxycodone REAL:06/26/2024 NOV:07/22/2024 documented in this encounter [facility] 07-10-2024 Telephone encounter Note Attempted to return Pts call, Spoke to pharmacy yesterday, he needs to call his insurance. He also would like a refill on his Oxycodone REAL:06/26/2024 NOV:07/22/2024 [facility] 07-09-2024 Telephone encounter Note Spoke to pharmacy they stated it was not a refill issue, but a prior authorization issue and we need to contact the insurance company. [facility] 07-09-2024 Miscellaneous Notes Spoke to pharmacy they stated it was not a refill issue, but a prior authorization issue and we need to contact the insurance company. documented in this encounter [facility] 04-16-2024 [place] [address] Referral Source: Dr. Mansfield, [facility] Neurosurgery CC: Chief Complaint Patient presents with [...] has been seen by pain management at [place] and at [facility] in the past where he went [...] 02/18: He had also been evaluated in [facility] neurosurgery clinic by Dunia Ryan in [...] most recently seen pain management at the [facility] in 2022. Has had previous imaging studies of his cervical, thoracic, lumbar spine as well as EMG of his bilateral upper and lower extremities. Notes that these were completed at [facility] in [place] around May or June 2023. Review of [...] Procedure Laterality Date (more content not included)... [facility] 03-05-2024 Note This is a 48 y/o mar ried for 30 yrs father of 2, son 30 and dtr 25 who lives in [place]. He lives with his . 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 He is waiting to get his final determination. 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 They have a dog and a cat. [...] but it started affecting his work in 2019. 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 He is able to [...] a gun or have access to one? Indiae Who is supportive of you? His family, his , kids, mom and dad, brother who is a medical doctor in [place]. He has a very good support network he says What treatments have you tried for your pain? He has had radio ablation at L1,L5, epidural block in 2021 and that didn't work. He has had steroid shots that didn't work. He went to the [facility] for epidural black and that hurt [...] stimulators? He has googled stuff from the [facility]. He has read the pamphlets that he [...] have alcoholism PSY (more content not included)... [facility] 02-19-2024 Note Neurosurgery Clinic Note Chief Complaint: Chronic pain syndrome. Interval History: Bhavesh Cárdenas is a 48 y.o. year-old male who presents in kind referral from Dr. Barr with neurosurgery in [place] for evaluation of chronic pain primarily involving [...] intervention. He had also been evaluated in [facility] neurosurgery clinic by Dunia Ryan in [...] most recently seen pain management at the [facility] in 2022. 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 Has had previous imaging studies of his cervical, thoracic, lumbar spine as well as EMG of his bilateral upper and lower extremities. Notes that these were completed at [facility] in [place] around May or June 2023. Review of [...] excess calories with serious comorbidity in adult ([facility]) Encounter for monitoring opioid maintenance therapy Hyperlipidemia Hypersomnia Low back pain of thoracolumbar region with sciatica Lumbar radiculopathy Metabolic syndrome X Moderate persistent asthma without complication Polyarthritis Primary hypertension Restless legs syndrome Strain of lumbar region Type 2 diabetes mellitus without complication ([facility]) Uncontrolled type 2 diabetes mellitus with hyperglycemia ([facility]) Past Medical History: Past Medical History: Diagnosis Date Asthma Diabetes mellitus ([facility]) Osteoarthritis Restless leg syndrome Past Surgical History: Past Surgical History: Procedure Laterality Date KNEE SURGERY x 2, left Medications: Current Outpatient Medications Medication Instructions albuterol 90 mcg/actuation inhaler INHALE 2 PUFFS BY MOUTH EVERY 4 HOURS NEEDED FOR WHEEZING amLODIPine (NORVASC) 5 mg, oral, Every morning BD Ultra-Fine Mini Pen Needle 31 gauge x 3/16 needle Daily, as directed FreeStyle Liv 2 Sensor kit APPLY 1 SENSOR EVERY [...] DAYS oxyCODONE ( (more content not included)... [facility] 11-21-2023 Note SUBJECTIVE: Chief complaint: Referral for back pain. History of present illness: Consultation referred from neurosurgeon Dr. Barr at [facility] for back pain. 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 Has had previous imaging studies of his cervical, thoracic, lumbar spine as well as EMG of his bilateral upper and lower extremities. Notes that these were completed at [facility] in [place] around May or June 2023. Did previously [...] data recorded. Accompanied (more content not included)... [facility] 11-19-2023 History of Presen t illness Narrative Associated Problem(s): Low back pain [...] Uncontrolled type 2 diabetes mellitus with hyperglycemia ([facility]) Most recent labs: hemoglobin A1C [...] follow-ups on file. documented in this encounter [facility] 09-13-2023 Evaluation note Encounter Date Diagnosis Assessment [...] him. He was treated with pain management [place] years ago did not like it he [...] M16.11) Sep, Lumbar spondylosis (ICD-10 - M47.816) [facility] Other 10-26-2023 Evaluation note* Encounter Date Diagnosis [...] rash near eyes, eye pain, vision changes. [facility] Other 09-27-2023 Miscellaneous Notes* Telephone Encounter - [...] Rose Marie Acosta RN documented in this [facility]07-10-2023 Miscellaneous Notes* Telephone Encounter - Lori Woody RN - 04/16/2023 11:19 AM EDT Refill request sent to the provider documented in this [facility]06-21-2023 Miscellaneous Notes* Telephone Encounter - Lori Woody RN - 03/28/2023 2:37 PM EDT Weight entered in Epic [facility]* Telephone Encounter - Lorna Anaya - 03/27/2023 1:25 PM EDT Patient's weight check faxed over for office to review; indexed into patient's chart under scanned documents. documented in this [facility]05-15-2023 Miscellaneous Notes*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 long-term current use of insulin ([facility]) Uncontrolled type 2 diabetes mellitus with hyperglycemia (CMS/HCC) Mixed hyperlipidemia (CMS/HCC) Mixed hyperlipidemia Class 3 severe obesity due to excess calories with serious comorbidity and body mass index (BMI) of 40.0 to 44.9 in adult ([facility]) documented in this encounter [facility] HealthcareEvaluation note* Diagnosis Type 2 diabetes mellitus without complication, without long-term current use of insulin ([facility])- Primary RLS (restless legs syndrome) Restless legs syndrome (RLS) Hyperlipidemia, unspecified hyperlipidemia type (CMS/HCC) Primary hypertension ([facility]/HCC) Unspecified essential hypertension Moderate persistent asthma without complication ([facility]) Class 3 severe obesity due to excess calories with serious comorbidity and body mass index (BMI) of 40.0 to 44.9 in adult ([facility]) Uncontrolled type 2 diabetes mellitus with hyperglycemia (CMS/HCC)- Primary Chronic neck and back pain Primary hypertension (CMS/HCC) Unspecified essential hypertension Low back pain of thoracolumbar region with sciatica Moderate persistent asthma without complication (CMS/HCC)- Primary Primary hypertension (CMS/HCC) Unspecified essential hypertension Uncontrolled type 2 diabetes mellitus with hyperglycemia (CMS/HCC) Low back pain of thoracolumbar region with sciatica Type 2 diabetes mellitus without complication, with long-term current use of insulin ([facility]) Chronic neck and back pain Uncontrolled type 2 diabetes mellitus with hyperglycemia (CMS/HCC)- Primary Primary hypertension ([facility]/HCC) Unspecified essential hypertension Chronic neck and back pain Low back pain of thoracolumbar region with sciatica Encounter for monitoring opioid maintenance therapy Uncontrolled type 2 diabetes mellitus with hyperglycemia (CMS/HCC)- Primary Periodic limb movement Periodic limb movement disorder Restless legs syndrome Restless legs syndrome (RLS) Uncontrolled type 2 diabetes mellitus with hyperglycemia (CMS/HCC)- Primary Hyperlipidemia, unspecified hyperlipidemia type (CMS/HCC) Low back pain of thoracolumbar region with sciatica Primary hypertension (CMS/HCC) Unspecified essential hypertension Chronic neck and back pain Uncontrolled type 2 diabetes mellitus with hyperglycemia (CMS/HCC)- Primary Primary hypertension (CMS/HCC) Unspecified essential hypertension Moderate persistent asthma without complication ([facility]) Class 3 severe obesity due to excess calories with serious comorbidity and body mass index (BMI) of 40.0 to 44.9 in adult ([facility]) Mixed hyperlipidemia ([facility]) Mixed hyperlipidemia Encounter for monitoring opioid maintenance therapy Chronic neck and back pain Chronic pain syndrome Type 2 diabetes mellitus without complication, with long-term current use of insulin ([facility])- Primary Uncontrolled type 2 diabetes mellitus with hyperglycemia ([facility]) Lumbar radiculopathy Thoracic or lumbosacral neuritis or radiculitis, unspecified Moderate persistent asthma without complication ([facility])- Primary Chronic neck and back pain Primary hypertension ([facility]) Unspecified essential hypertension Type 2 diabetes mellitus without complication, with long-term current use of insulin ([facility]) Uncontrolled type 2 diabetes mellitus with hyperglycemia ([facility]) Mixed hyperlipidemia ([facility]) Mixed hyperlipidemia Class 3 severe obesity due to excess calories with serious comorbidity and body mass index (BMI) of 40.0 to 44.9 in adult ([facility]) Moderate persistent asthma without complication ([facility]) documented in this encounter [facility] HealthcareEvaluation note* Diagnosis Type 2 diabetes mellitus without complication, without long-term current use of insulin ([facility])- Primary RLS (restless legs syndrome) Restless legs syndrome (RLS) Hyperlipidemia, unspecified hyperlipidemia type ([facility]) Primary hypertension ([facility]) Unspecified essential hypertension Moderate persistent asthma without complication ([facility]) Class 3 severe obesity due to excess calories with serious comorbidity and body mass index (BMI) of 40.0 to 44.9 in adult ([facility]) Uncontrolled type 2 diabetes mellitus with hyperglycemia ([facility])- Primary Chronic neck and back pain Primary hypertension ([facility]) Unspecified essential hypertension Low back pain of thoracolumbar region with sciatica Moderate persistent asthma without complication ([facility])- Primary Primary hypertension ([facility]) Unspecified essential hypertension Uncontrolled type 2 diabetes mellitus with hyperglycemia ([facility]) Low back pain of thoracolumbar region with sciatica Type 2 diabetes mellitus without complication, with long-term current use of insulin ([facility]) Chronic neck and back pain Uncontrolled type 2 diabetes mellitus with hyperglycemia ([facility]/HCC)- Primary Primary hypertension ([facility]) Unspecified essential hypertension Chronic neck and back pain Low back pain of thoracolumbar region with sciatica Encounter for monitoring opioid maintenance therapy Uncontrolled type 2 diabetes mellitus with hyperglycemia ([facility])- Primary Periodic limb movement Periodic limb movement disorder Restless legs syndrome Restless legs syndrome (RLS) Uncontrolled type 2 diabetes mellitus with hyperglycemia ([facility]/HCC)- Primary Hyperlipidemia, unspecified hyperlipidemia type ([facility]) Low back pain of thoracolumbar region with sciatica Primary hypertension ([facility]/HCC) Unspecified essential hypertension Chronic neck and back pain Uncontrolled type 2 diabetes mellitus with hyperglycemia (CMS/HCC)- Primary Primary hypertension ([facility]/HCC) Unspecified essential hypertension Moderate persistent asthma without complication ([facility]) Class 3 severe obesity due to excess calories with serious comorbidity and body mass index (BMI) of 40.0 to 44.9 in adult ([facility]) Mixed hyperlipidemia ([facility]) Mixed hyperlipidemia Encounter for monitoring opioid maintenance therapy Chronic neck and back pain Chronic pain syndrome Type 2 diabetes mellitus without complication, with long-term current use of insulin ([facility])- Primary Uncontrolled type 2 diabetes mellitus with hyperglycemia ([facility]) Lumbar radiculopathy Thoracic or lumbosacral neuritis or radiculitis, unspecified Moderate persistent asthma without complication ([facility])- Primary Chronic neck and back pain Primary hypertension ([facility]) Unspecified essential hypertension Type 2 diabetes mellitus without complication, with long-term current use of insulin ([facility]) Uncontrolled type 2 diabetes mellitus with hyperglycemia ([facility]) Mixed hyperlipidemia ([facility]) Mixed hyperlipidemia Class 3 severe obesity due to excess calories with serious comorbidity and body mass index (BMI) of 40.0 to 44.9 in adult ([facility]) Type 2 diabetes mellitus without complication, with long-term current use of insulin ([facility]) Uncontrolled type 2 diabetes mellitus with hyperglycemia ([facility]) Moderate persistent asthma without complication ([facility]) documented in this encounter [facility] HealthcareEvaluation note* Diagnosis Type 2 diabetes mellitus without complication, without long-term current use of insulin ([facility])- Primary RLS (restless legs syndrome) Restless legs syndrome (RLS) Hyperlipidemia, unspecified hyperlipidemia type ([facility]/HCC) Primary hypertension ([facility]/HCC) Unspecified essential hypertension Moderate persistent asthma without complication ([facility]) Class 3 severe obesity due to excess calories with serious comorbidity and body mass index (BMI) of 40.0 to 44.9 in adult ([facility]) Uncontrolled type 2 diabetes mellitus with hyperglycemia ([facility])- Primary Chronic neck and back pain Primary hypertension ([facility]/H[facility]) Unspecified essential hypertension Low back pain of thoracolumbar region with sciatica Moderate persistent asthma without complication (CMS/HCC)- Primary Primary hypertension (CMS/HCC) Unspecified essential hypertension Uncontrolled type 2 diabetes mellitus with hyperglycemia (CMS/HCC) Low back pain of thoracolumbar region with sciatica Type 2 diabetes mellitus without complication, with long-term current use of insulin (CMS/HCC) Chronic neck and back pain Uncontrolled type 2 diabetes mellitus with hyperglycemia (CMS/HCC)- Primary Primary hypertension (CMS/HCC) Unspecified essential hypertension Chronic neck and back pain Low back pain of thoracolumbar region with sciatica Encounter for monitoring opioid maintenance therapy Uncontrolled type 2 diabetes mellitus with hyperglycemia (CMS/HCC)- Primary Periodic limb movement Periodic limb movement disorder Restless legs syndrome Restless legs syndrome (RLS) Uncontrolled type 2 diabetes mellitus with hyperglycemia (CMS/HCC)- Primary Hyperlipidemia, unspecified hyperlipidemia type (CMS/HCC) Low back pain of thoracolumbar region with sciatica Primary hypertension (CMS/HCC) Unspecified essential hypertension Chronic neck and back pain Uncontrolled type 2 diabetes mellitus with hyperglycemia (CMS/HCC)- Primary Primary hypertension (CMS/HCC) Unspecified essential hypertension Moderate persistent asthma without complication (CMS/HCC) Class 3 severe obesity due to excess calories with serious comorbidity and body mass index (BMI) of 40.0 to 44.9 in adult ([facility]) Mixed hyperlipidemia (CMS/HCC) Mixed hyperlipidemia Encounter for monitoring opioid maintenance therapy Chronic neck and back pain Chronic pain syndrome Type 2 diabetes mellitus without complication, with long-term current use of insulin (CMS/HCC)- Primary Uncontrolled type 2 diabetes mellitus with hyperglycemia (CMS/HCC) Lumbar radiculopathy Thoracic or lumbosacral neuritis or radiculitis, unspecified Moderate persistent asthma without complication (CMS/HCC)- Primary Chronic neck and back pain Primary hypertension (CMS/HCC) Unspecified essential hypertension Type 2 diabetes mellitus without complication, with long-term current use of insulin (CMS/HCC) Uncontrolled type 2 diabetes mellitus with hyperglycemia (CMS/HCC) Mixed hyperlipidemia (CMS/HCC) Mixed hyperlipidemia Class 3 severe obesity due to excess calories with serious comorbidity and body mass index (BMI) of 40.0 to 44.9 in adult ([facility]) Moderate persistent asthma without complication (CMS/HCC) documented in this encounter [facility] general Narrative - Reported* Type Description Date Medical History restless leg syndrome Medical History seasonal allergies Medical History DM Medical History Arthritis Medical History asthma Medical History diabetes mallitus Surgical History left knee surgery x 2 Surgical History L1-L5 ablation 08/2021 Hospitalization History No know Hospitalization history [facility] Other [facility] general Narrative - Reported* Type Description Date Medical History restless leg syndrome Medical History seasonal allergies Medical History DM Medical History Arthritis Medical History asthma Medical History diabetes mallitus Surgical History left knee surgery x 2 Surgical History L1-L5 ablation 08/2021 Hospitalization History No Hospitalization histo ry information [facility] Other [facility] general Narrative - Reported* Type Description Date Medical History restless leg syndrome Medical History seasonal allergies Medical History DM Medical History Arthritis Medical History asthma Medical History diabetes mallitus Surgical History left knee surgery x 2 Surgical History L1-L5 ablation 08/2021 Hospitalization History see above [facility] Other Hospital Discharge instructions Additional Instructions Continue your current medication May apply ice to the sore area To do stretching May use topical medicine such as IcyHot with lidocaine Bengay with lidocaine or lidocaine patch Follow-up with your back specialist Return to the ER for more severe pain weakness in your legs loss of bladder bowel control high fever [facility]: Hospital Discharge instructions Additional Instructions May apply 1-2 lidocaine patches over sores areas daily Continue your other medication Follow-up with your doctor Return to the ER for worsening pain weakness in your legs loss of bladder bowel control or any [facility] Work Phone: Reason for referral (narrative)* Diagnostic Procedure Only (Routine) - Closed Specialty Diagnoses / Procedures Referred By Contjerri t Referred To Contact XR IMAGING Diagnoses Localized, primary osteoarthritis of hand, unspecified laterality Arthritis Chronic right-sided low back pain without sciatica Procedures XR HAND/WRIST SURVEY ARTHRITIS 1V PA BILATERAL JOINT SURVEY SINGLE VIEW 2 [place] [address] [place] [address] Xr Imaging Referral ID Status Reason Start Date Expiration Date V isits Requested Visits Authorized [id number] Closed Auto-Generate d Referral 10/30/2022 11/29/2023 1 1 [facility] for referral (narrative)* Diagnostic Procedure Only (Routine) - Closed Specialty Diagnoses / Procedures Referred By Contac t Referred To Contact XR IMAGING Diagnoses Localized, primary osteoarthritis of hand, unspecified laterality Arthritis Chronic right-sided low back pain without sciatica Procedures XR HAND/WRIST SURVEY ARTHRITIS 1V PA BILATERAL JOINT SURVEY SINGLE VIEW 2 [place] [address] [place] [id number] Xr Imaging Referral ID Status Reason Start Date Expiration Date V isits Requested Visits Authorized [id number] Closed Auto-Generate d Referral 10/30/2022 11/29/2023 1 1 [facility] for visit Narrative* Outpatient Procedure (Routine) - Closed Specialty Diagnoses / Procedures Referred By Contac t Referred To Contact Spine Health / SPINE Diagnoses Sacroiliitis, not elsewhere classified Injection Type - Intra-articular Sacroiliac joint injection: Bilateral CPT 70061 Procedures INJECT SI JOINT ARTHRGRPHY&/ANES/STEROI D W/JB PROCEDURE SPINE Kb Lorenzo, DO [address] [place] [address] Spine Med Main [address] [place] [address] Referral ID Status Reason Start Date Expiration Date Visits Re quested Visits Authorized [id number] Closed 11/16/2022 12/05/2022 1 1 [facility] Chief Complaint and Reason for Visit [...] 2 Lumbar spondylosis ( M47.816) Referral Organization [facility] urosurgery Referring Provider First Name Francis Referring Provider Last Name Cortney Referring Provider Specialty Neurologica l Surgery Referred Organization [facility] Referred Address [address] [place], [place],[address] Referred Provider Specialty Neurosurgery Referral Priority Routine Reason evaluate and treat f or sacroiliac and axial back pain \ Diagnosis 1 Sacro-iliac pain (M5 3.3) Referral Organization [facility] urosurgery Referring Provider First Name Francis Referring Provider Last Name Cortney Referring Provider Specialty Neurologica l Surgery Referred Organization [facility] Referred Provider Nahid Estevez Referred Address [address] [place],[address] Referred Provider Specialty Pain Medicin e Referral Priority Routine Specialty Diagnoses / Procedures Referred By Contac t Referred To Contact Diagnoses Disturbance of sleep pattern associated with pain Procedures CONSULT TO SLEEP MEDICINE - ADULT OFFICE/OUTPATIENT [facility] 60-74 MINUTES Kb Lorenzo DO [address] [place] [address] Referral ID Status Reason Start Date Expiration Date Visits Requested Visits Authorized [id number] Authorized PCP Requested Referral 11/15/2022 11/15/2023 1 1 Specialty Diagnoses / Procedures Referred By Contac t Referred To Contact [facility] Diagnoses Chronic pain syndrome Procedures CONS[facility] TO [facility] ([facility]IC PAIN) OFFICE/OUTPATIENT [facility] 60-74 MINUTES Kb Lorenzo DO [address] [place] [address] Referral ID Status Reason Start Date Expiration Date Visits Requested Visits Authorized [id number] Pending Review PCP Requested Referral 11/15/2022 11/15/2023 1 1 Specialty Diagnoses / Procedures Referred By Contac t Referred To Contact [facility] Diagnoses Chronic pain syndrome Procedures CONSULT TO [facility] PHYSICIAN OFFICE/OUTPATIENT [facility] 60-74 MINUTES Kb Lorenzo DO [address] [place] [address] [place] [address] Referral ID Status Reason Start Date Expiration Date V isits Requested Visits Authorized [id number] Closed PCP Requested Referral 11/15/2022 11/15/2023 1 1 Specialty Diagnoses / Procedures Referred By Jevon penaloza Referred To Contact [facility] Diagnoses Chronic bilateral low back pain without sciatica Chronic pain syndrome Procedures CONSULT TO PHYSICAL THERAPY PHYSICAL THERAPY EVALUATION HIGH COMPLEX 45 MINS Kb Lorenzo DO [address] [place] [address] [facility] [address] [place] [address] Referral ID Status Reason Start Date Expiration Date Visits Requested Visits Authorized [id number] Pending Review Auto-Generat ed Referral 11/15/2022 11/15/2023 1 1 Reason 09/28/22 @ 11:30am Evaluate and Treat R Hip Arthropathy Diagnosis 1 Trochanteric bursiti s of right hip (M70.61) Referral Organization [facility] urosurgery Referring Provider First Name Francis Referring Provider Last Name Cortney Referring Provider Specialty Neurologica l Surgery Referred Organization [facility] Ortho pedics Referred Provider Milton Valentine II Referred Address [address] [place], [place],[address] Referred Provider Specialty Orthopedic S urgery Referral Priority Routine Referral Appointment Date 2022-09-28 [facility] PM >Received today and [facility]28/2022 02:47:43 PM >[facility] has been scheduled [facility]04[facility]2022 08:58:01 AM >Consult notes not locked yet [facility][1] 10/06/2022 11:26:02 AM >Cons[facility] notes not locked yet [facility]/10/2022 09:04:40 AM >[facility] not locked yet [facility] 10/11/2022 09:00:47 AM >[facility] not locked yet [facility] 10/12/2022 08:14:26 AM >[facility] locked yet [facility]/13/2022 12:17:19 PM >Office notes not locked yet [facility] Larose 10/16/2022 10:10:49 AM >Sent telephone encounter to referring physician to let them know that the consult letter is ready for their review Specialty Diagnoses / Procedures Referred By Contac t Referred To [facility] Diagnoses Chronic bilateral low back pain without sciatica Procedures CONSULT TO [place] FOR PAIN RECOVERY (CHRONIC PAIN) OFFICE/OUTPATIENT [facility] 60-74 MINUTES Olayinka Boyd PA-C [address] [place] [id number] Referral ID Status Reason Start Date Expiration Date Visits Requested Visits Authorized [id number] Pending Review PCP Requested Referral 10/19/2022 10/19/2023 [...] 2 [place] [address] [place] [id number] Xr Imaging Referral ID Status Reason Start Date Expiration Date V isits Requested Visits Authorized [id number] Closed Auto-Generate d Referral 10/30/2022 11/29/2023 1 1 Specialty Diagnoses / Procedures Referred By Contac t Referred To [facility] Diagnoses Chronic bilateral low back pain without sciatica Procedures CONSULT TO [place] FOR PAIN RECOVERY (CHRONIC PAIN) OFFICE/OUTPATIENT [facility] 60-74 MINUTES Olayinka Boyd PA-C [address] [place] [address] Referral ID Status Reason Start Date Expiration Date Visits Requested Visits Authorized [id number] Pending Review PCP Requested Referral 10/19/2022 10/19/2023 1 1 Reason Comments pre inj phone call Reason Comments Consult Specialty Diagnoses / Procedures Referred By Contac t Referred To [facility] Diagnoses Chronic pain syndrome Procedures CONSULT TO [facility] ([facility]RONIC PAIN) OFFICE/OUTPATIENT [facility] 60-74 MINUTES Kb Lorenzo DO [address] [place] [address] Referral ID Status Reason Start Date Expiration Date Visits Requested Visits Authorized [id number] Pending Review PCP Requested Referral 11/15/2022 11/15/2023 1 1 Reason Comments Patient Question Reason Comments Electronic Communication Reason Onset Date Comments Refill Request 04/16/2023 Reason Onset Date Comments Refill Request 07/04/2023 Trazodone Rx Refill Request 07/05/2023 Refill Request 07/06/2023 Reason Comments Follow-up Reason Onset Date Comments Med Refill 07/08/2024 Reason Onset Date Comments MOUNJARO RX 07/08/2024 Pt left VM sayin g the insurance said the Mounjaro dose was too high? He said they told him we can appeal it if you want Med Refill 07/08/2024 Reason Onset Date Comments Med Refill 07/21/2024 Reason Onset Date Comments Med Refill 08/04/2024 Reason Onset Date Comments Med Refill 08/06/2024 Care Teams (unrecognized sec tion and content) Team Status: Inactive Member Role Status Dates Carmen Wheatley MD Primary Care Provider Active Milton Valentine II, MD Attending Provider Active Team Status: Active Member Role Status Dates Carmen Wheatley MD Primary Care Provider Active Lens Matcher Relationship Specialty Start Date End Date Shaikh Prater MD [address] [address] PCP - General Primary Care 10/30/22 Lens Matcher Relationship Specialty Start Date End Date Shaikh Prater MD [address] [place] [address] PCP - General Primary Care 10/30/22 Lens Matcher Relationship Specialty Start Date End Date Shaikh Prater MD [address] [place] [address] PCP - General Primary Care 10/30/22 Lens Matcher Relationship Specialty Start Date End Date Shaikh Prater MD [address] [place] [address] PCP - General Primary Care 10/30/22 Lens Matcher Relationship Specialty Start Date End Date Shaikh Prater MD [address] [place] [address] PCP - General Primary Care 10/30/22 Lens Matcher Relationship Specialty Start Date End Date Shaikh Prater MD [facility] [place] [address] PCP - General Primary Care 10/30/22 Team Status: Active Member Role Status Dates Shaikh Moi MD Primary Care Provider Active Team Status: Inactive Member Role Status Dates Kristina Delgado , RESTAURANT SHIFT LEADER- Emergency Provider Active Shaikh Moi MD Primary Care Provider Active Lens Matcher Relationship Specialty Start Date End Date Shaikh Prater MD [address] [place] [address] PCP - General Primary Care 10/30/22 Lens Matcher Relationship Specialty Start Date End Date Shaikh Prater MD [address] [place] [address] PCP - General Primary Care 10/30/22 Lens Matcher Relationship Specialty Start Date End Date Shaikh Prater MD [address] [place] [address] PCP - General Primary Care 10/30/22 Lens Matcher Relationship Specialty Start Date End Date Shaikh Prater MD [address] [place] [address] PCP - General Primary Care 10/30/22 Team Status: Inactive Member Role Status Dates Shaikh Moi MD Primary Care Provider Active [facility] Attending Provider Active Team Status: Inactive Member Role Status Dates Shaikh Moi MD Primary Care Provider Active [facility] Attending Provider, Referri ng Provider Active Team Status: Inactive Member Role Status Dates Shaikh Moi MD Primary Care Provider Active Kristina Delgado [facility]- Emergency Provider Active Team Status: Inactive Member Role Status Dates Shaikh Moi MD Primary Care Provider Active Tracy Wu APRN Attending Provider Active Lens Matcher Relationship Specialty Start Date End Date Shaikh Prater MD PCP - General Internal Medicine 10/08/22 Lens Matcher Relationship Specialty Start Date End Date Shaikh Prater MD PCP - General Internal Medicine 10/08/22 Lens Matcher Relationship Specialty Start Date End Date Shaikh Prater MD [address] [place] [phone] PCP - General Internal Medicine 11/19/23 Lens Matcher Relationship Specialty Start Date End Date Shaikh Prater MD [address] [place] [address] PCP - General Internal Medicine 11/19/23 Lens Matcher Relationship Specialty Start Date End Date J Luis Cárdenas MD [address] [place] [address] PCP - General Family Medicine 05/08/24 Denis Dunlap NP [address] [place] [address] Nurse Practitioner Family Medicine 05/08/24 Lens Matcher Relationship Specialty Start Date End Date J Luis Cárdenas MD [address] [place] [phone] PCP - General Family Medicine 05/08/24 Denis Dunlap NP [address] [place] [address] Nurse Practitioner Family Medicine 05/08/24 Lens Matcher Relationship Specialty Start Date End Date J Luis Cárdenas MD [address] [place] [phone] PCP - General Family Medicine 05/08/24 Denis Dunlap NP [address] [place] [address] Nurse Practitioner Family Medicine 05/08/24 Lens Matcher Relationship Specialty Start Date End Date J Luis Cárdenas MD [address] [place] [phone] PCP - General Family Medicine 05/08/24 Denis Dunlap NP [address] [place] [address] Nurse Practitioner Family Medicine 05/08/24 Lens Matcher Relationship Specialty Start Date End Date J Luis Cárdenas MD [address] [place] [phone] PCP - General Family Medicine 05/08/24 Denis Dunlap NP [address] [place] [address] Nurse Practitioner Family Medicine 05/08/24 Lens Matcher Relationship Specialty Start Date End Date J Luis Cárdenas MD [address] [place] [phone] PCP - General Family Medicine 05/08/24 07/27/24 Denis Dunlap NP [address] [place] [phone] Nurse Practitioner Family Medicine 05/08/24 Lens Matcher Relationship Specialty Start Date End Date Unallocated, Kb Matias MD [address] [place] [address] PCP - General Family Medicine 07/28/24 Denis Dunlap NP [address] [place] [address] Nurse Practitioner Family Medicine 05/08/24 Lens Matcher Relationship Specialty Start Date End Date Unallocated, Kb Matias MD [address] [place] [address] PCP - General Family Medicine 07/28/24 Denis Dunlap NP [address] [place] [address] Nurse Practitioner Family Medicine 05/08/24 Lens Matcher Relationship Specialty Start Date End Date Unallocated, Noms Polly, [address] [place] [address] PCP - General Family Medicine 07/28/24 [place] [phone] Nurse Practitioner Family Medicine 05/08/24 Goals (unrecognized section and content) Goals may be documented in a n alternate section Source Comments (unrecognize d section and content) In the event this informatio n is protected by the Federal Confidentiality of Alcohol and Drug Abuse Patient Records regulations: The Federal rules restrict any use of the information to criminally investigate or prosecute any alcohol or drug abuse patient.[facility] the event this information is protected by the Federal Confidentiality of Alcohol and Drug Abuse Patient Records regulations: The Federal rules restrict any use of the information to criminally investigate or prosecute any alcohol or drug abuse patient.[facility] the event this information is protected by the Federal Confidentiality of Alcohol and Drug Abuse Patient Records regulations: The Federal rules restrict any use of the information to criminally investigate or prosecute any alcohol or drug abuse patient.[facility] the event this information is protected by the Federal Confidentiality of Alcohol and Drug Abuse Patient Records regulations: The Federal rules restrict any use of the information to criminally investigate or prosecute any alcohol or drug abuse patient.[facility] the event this information is protected by the Federal Confidentiality of Alcohol and Drug Abuse Patient Records regulations: The Federal rules restrict any use of the information to criminally investigate or prosecute any alcohol or drug abuse patient.[facility] the event this information is protected by the Federal Confidentiality of Alcohol and Drug Abuse Patient Records regulations: The Federal rules restrict any use of the information to criminally investigate or prosecute any alcohol or drug abuse patient.[facility] the event this information is protected by the Federal Confidentiality of Alcohol and Drug Abuse Patient Records regulations: The Federal rules restrict any use of the information to criminally investigate or prosecute any alcohol or drug abuse patient.[facility] the event this information is protected by the Federal Confidentiality of Alcohol and Drug Abuse Patient Records regulations: The Federal rules restrict any use of the information to criminally investigate or prosecute any alcohol or drug abuse patient.[facility] the event this information is protected by the Federal Confidentiality of Alcohol and Drug Abuse Patient Records regulations: The Federal rules restrict any use of the information to criminally investigate or prosecute any alcohol or drug abuse patient.[facility] the event this information is protected by the Federal Confidentiality of Alcohol and Drug Abuse Patient Records regulations: The Federal rules restrict any use of the information to criminally investigate or prosecute any alcohol or drug abuse patient.[facility] the event this information is protected by the Federal Confidentiality of Alcohol and Drug Abuse Patient Records regulations: The Federal rules restrict any use of the information to criminally investigate or prosecute any alcohol or drug abuse patient.[facility] the event this information is protected by the Federal Confidentiality of Alcohol and Drug Abuse Patient Records regulations: The Federal rules restrict any use of the information to criminally investigate or prosecute any alcohol or drug abuse patient.[facility] the event this information is protected by the Federal Confidentiality of Alcohol and Drug Abuse Patient Records regulations: The Federal rules restrict any use of the information to criminally investigate or prosecute any alcohol or drug abuse patient.[facility] the event this information is protected by the Federal Confidentiality of Alcohol and Drug Abuse Patient Records regulations: The Federal rules restrict any use of the information to criminally investigate or prosecute any alcohol or drug abuse patient.[facility] the event this information is protected by the Federal Confidentiality of Alcohol and Drug Abuse Patient Records regulations: The Federal rules restrict any use of the information to criminally investigate or prosecute any alcohol or drug abuse patient.[facility] the event this information is protected by the Federal Confidentiality of Alcohol and Drug Abuse Patient Records regulations: The Federal rules restrict any use of the information to criminally investigate or prosecute any alcohol or drug abuse patient.[facility] (unrecognized sect ion and content) No Status Records FoundNo Status Records FoundNo Status Records FoundNo Status Records FoundNo Status Records FoundNo Status Records Found INFORMATION SOURCE (unrecogn ized section and content) DATE CREATED AUTHOR 03/16/2023 [facility] DATE CREATED AUTHOR AUTHOR'S ORGANIZ ATION 03/29/2023 [facility] DATE CREATED AUTHOR AUTHOR'S ORGANIZ ATION 05/27/2023 [facility] DATE CREATED AUTHOR AUTHOR'S ORGANIZ ATION 11/16/2023 [facility] DATE CREATED AUTHOR AUTHOR'S ORGANIZ ATION 05/30/2024 [facility] DATE CREATED AUTHOR AUTHOR'S ORGANIZ ATION 07/24/2024 [facility] EPIC FOR RECORDS PERTAINING [...] BE BASED ON THE PRIMARY CLINICAL RECORDS. [facility] provides no warranty or guarantee of the accuracy or completeness of information in this document.
[2024-08-19 10:46] LABS: Estimated Average Glucose 174 mg/dL; Glycohemoglobin A1C 7.7 % (4.5-6.2)
[2024-08-19 10:49] LABS: Alanine Aminotransferase 29 U/L (16-63); Albumin Globulin Ratio 1.1; Albumin Level 3.7 g/dL (3.4-5.0); Alkaline Phosphatase 99 U/L (46-116); Anion Gap 16.2; Aspartate Amino Transferase 15 U/L (15-37); BUN Creatinine Ratio 8.1; Bilirubin Total 0.3 mg/dL (0.2-1.0); Calcium 9.4 mg/dL (8.5-10.1); Chloride 101 mmol/L (98-107); Estimated GFR (African America >60 (>=60 mL/min/1.73m^2); Estimated GFR (Non-African Ame >60 (>=60 mL/min/1.73m^2); Globulin 3.5 g/dL; Glucose 149 mg/dL (74-106); Potassium 4.2 mmol/L (3.5-5.1); Sodium 139 mmol/L (136-145); Total Protein 7.2 g/dL (6.4-8.2)
== END 2024-08-19 10:23 | disposition home or self-care (01) ==
LOC: LAB 10:23
DX: Z79.4 Long term (current) use of insulin (principal); E11.65 Type 2 diabetes mellitus with hyperglycemia
CPT/HCPCS: 36415; 80053; 83036; 85025

== ENCOUNTER 2024-08-26 11:18 | Outpatient (OUT) | payer MEDICAID, SELFPAY ==
[2024-08-26 12:18] LABS: Percent Iron Saturation 20.4 %
[2024-08-27 04:08] LABS: Vitamin B12 833 pg/mL (232-1245)
[2024-08-27 05:08] LABS: Transferrin 212 mg/dL (177-329)
== END 2024-08-26 11:19 | disposition home or self-care (01) ==
LOC: LAB 11:20
DX: D64.9 Anemia, unspecified (principal)
CPT/HCPCS: 36415; 82607; 82728; 83540; 83550; 84466

== ENCOUNTER 2024-08-30 09:55 | Emergency (ER) | payer MEDICAID, SELFPAY ==
[2024-08-30 09:59] VITALS: BP 141/85; PULSE 76; TEMP 36.4; O2SAT 95; BMI 39.1
--- OUTSIDE RECORDS SUMMARY | 2024-08-30 10:09 | XMS_ITS | CCD ---
Author Organization [facility] Care Team Providers Care Audio/Video Technician Name Role Phone Nahid Gu Unavailable MD Carmen Wheatley Primary Care Provider MD Milton Valentine II Attending Provider Unavailable Primary Care Provider UnavailShaikh Nichols MD Primary Care Provider [phone] Francis Barr Unavailable Milton Valentine II Unavailable [phone] Danny, [facility] Kristina Mak Emergency Provider MD Masood [...] H Admitting Unavailable TANKHA, KB Referring Unavailable FAWCTD, [facility] Primary Care Unavailable OLAYINKA BOYD Referring Unavailable TANKHA, KB Attending Unavailable FAWCTD, [facility] Primary Care Unavailable SANTANA HARRIS Referring Unavailable FAWWAD, [facility] Primary Care Unavailable SANTANA HARRIS Referring Unavailable FAWWAD, [facility] Primary Care Unavailable SANTANA HARRIS Attending Unavailable OLAYINKA BOYD Attending Unavailable TANKHA, KB Attending Unavailable FAWCTD, [facility] Primary Care Unavailable WASHINGTON CASTELLANOS Attending Unavailable TANKHA, KB Referring Unavailable FAWWAD, [facility] Primary Care Unavailable TANKHA, KB Admitting Unavailable TANKHA, KB Attending Unavailable FAWCTD, [facility] Primary Care Unavailable MD Moi [facility] Primary Care Provider [facility] Tracy Attending Provider Aliza GREEN, Terri Colvin Attending Unavailable Jazmin, [facility] Tracy Referring Provider Carmen [place] Unavailable MD Moi [facility] Primary Care Provider [facility] Tracy Attending Provider Jazmin [facility] Tracy Referring Provider STEVO Wu Attending Provider Kaminiva tee Delgado [facility] Kristina E Emergency Provider [phone] Moi GREEN, [facility] Provider Windnagel Tracy Admitting Unavailable ErinnaNatalio greenicia Attending Unavailable Jazmin, Tracy Referring [facility]available [facility] Primary Care Unavailable Fawwad, [facility] Primary Care Unavailable Windnagel, Tracy Admitting Unavailable Windnagel, Tracy Attending Unavailable [facility] Care Unavailable Bullimore, Kristina E Admitting Unavailable Bullimore, Kristina E Attending Unavailable wned, [facility] Primary Care Unavailable Bullimore, Kristina E Admitting Unavailable Bullimore, Kristina E Attending Unavailable [facility], [facility] Primary Care Unavailable Windnagel, Tracy Admitting Unavailable Windnagel, Tracy Attending Unavailable Gigid , [facility] Primary Care Provider [phone] ANANT SPANN Attending Unavailable DONAL, DANNI Referring Unavailable DONAL, DANNI Attending Unavailable OVITT, DUNIA Attending Unavailable BHAVESH JAMES Attending Unavailable DONAL, DANNI Referring Unavailable OVITT, DUNIA Referring Unavailable DONAL, DANNI Referring Unavailable Melia GREEN, J Luis Primary Care Provider Fabi BOXING INSPECTOR, Denis Unavailable [phone] J Luis Cárdenas MD Primary Care Provider Unallocated MD, [facility] Provider Primary Care Provi sony Melia GREEN, J Luis Primary Care Provider FAWWAD, MEYER Attending Unavailable FAWWAD, MEYER Attending Unavailable FAWWAD, MEYER Attending Unavailable FAWWAD, MEYER Attending Unavailable FAWWAD, MEYER Attending Unavailable FAWWAD, MEYER Attending Unavailable DUNLAP, DENIS Attending Unavailabl ANNIE Gordon Attending Unavailable DUNLAP, DENIS Attending Unavailabl e DUNLAP, BRITTANY Attending Unavailabl e DUNLAP, DENIS Attending Unavailabl e Allergies Allergy Classification Reported Allergen(s) Allergy Type Date of Onset Reaction(s) Facility (20 sources) Ibuprofen; Translations: [IBUPROFEN] Drug Allergy 3 Anaphylaxis [employer] Other (20 sources) NSAIDs Propensity to adverse reactions 3 Anaphylaxis, Swelling, Shortness of breath [facility] (18 sources) Non-steroidal anti-inflammato ry agent; Translations: [NSAIDS (NON-STEROIDAL ANTI-INFLAMMATO RY DRUG)] Drug Allergy 3 Anaphylaxis, Other: See Comments, Shortness of Breath, Swelling [facility] (5 sources) NSAIDS (Non-Steroidal Anti-Inflamma; Translations: [NSAIDS (Non-Steroidal Anti-Inflamma] Allergy to substance 3 Anaphylaxis [facility] (1 source) NSAIDs Drug allergy (disorder) [facility] Repository (20 sources) Aluminum aspirin; Translations: [ASPIRIN] Drug Allergy 3 Unknown [facility] (20 sources) Naproxen; Translations: [NAPROXEN] Drug Allergy 3 Anaphylaxis [facility] (20 sources) oxaprozin; Translations: [OXAPROZIN] Drug Allergy 3 Unknown [facility] (20 sources) traMADol; Translations: [TRAMADOL] Drug Allergy 3 [facility] (1 source) Ibuprofen Drug Allergy 3 [facility] Repository (1 source) ALLERGIES NOT ON FILE; Translations: [ALLERGIES NOT ON FILE] Propensity to adverse reactions (disorder) [facility] Repository Medications Current Medications Medication Drug Class(es) Dates Sig (Normalized) Sig (Original) Albuterol-Budeson felipe (Airsupra) 90-80 MCG/ACT aerosol (15 sources) Start: 05-27-2024 take 2 puff(s) by inhalation every six hours Albuterol-Budesoni de (Airsupra) 90-80 MCG/ACT aerosol Indications: Moderate persistent asthma without complication (CMS/HCC) Inhale 2 puffs every 6 (six) hours if needed (wheezing, shortness of breath) 10.7 g 2 05/27/2024 Active amLODIPine 5 mg oral tablet (20 sources) Dihydropyridine Calcium Channel Roland Start: 10-29-2023 [...] Start: 09-26-2022 take 1 capsule by mo [facility] once daily DULoxetine (CYMBALTA) 60 mg capsule [...] tablet (20 sources) Biguanide Start: 06-24-2024 End: 02-14-2025 take 1 tablet by mouth at mealtime metFORMIN (Glucophage) 1000 MG tablet Indications: Type 2 diabetes mellitus without complication, without long-term current use of insulin (CMS/HCC) Take 1 tablet (1,000 mg) by mouth in the morning. Take with meals. 90 tablet 1 08/18/2024 02/14/2025 Active Start: 10-24-2023 End: 04-21-2024 take 1 [...] 2023 12:00am OXcarbazepine 300 mg oral tablet (20 sources) Anti-epileptic Agent Start: 06-11-2024 take 1 [...] 300 mg before bedtime. 0 08/20/2023 Active prazosin 2 mg oral capsule (15 sources) alpha-Adrenergic Roland Start: 06-11-2024 take 2 capsules by mouth once daily prazosin (Minipress) 2 MG capsule Take 4 mg by mouth Daily 06/11/2024 Active pregabalin 200 mg oral capsule (20 sources) Start: 04-21-2024 End: 10-26-2024 take 1 [...] Requip Active sertraline 50 mg oral tablet (20 sources) Serotonin Reuptake Inhibitor Start: 3 take [...] Active Tirzepatide (Mounjaro) 5 MG/0.5ML solution auto-injector (10 sources) Start: 4 Tirzepatide (Mounjaro) 5 MG/0.5ML solution auto-injector Indications: Type 2 diabetes mellitus without complication, with long-term current use of insulin ([facility]) , Uncontrolled type 2 diabetes mellitus with hyperglycemia (CMS/[facility]) Inject 5 mg under the skin 1 (one) time per week 0.5 mL 3 07/22/2024 Active tiZANidine 4 mg oral tablet (20 sources) Central alpha-2 Adrenergic Agonist Start: take 1 tablet by mouth twice daily [...] Drug Class(es) Dates Sig (Normalized) Sig (Original) [id number] 200 actuat albuterol 0.09 mg/actuat metered dose [...] oral tablet (13 sources) Penicillin-class Antibacterial Start: 019 End: 023 take 1 tablet by mouth every twelve hours Amoxicillin-Pot Clavulanate 875-125 MG 1 tablet Orally every 12 hrs for 7 days Mar, Not-Taking/PRN Comment on above: Take by mouth q 12 H R. 60 actuat budesonide 0.09 mg/actuat dry powder inhaler (8 sources) Corticosteroid Start: take 2 puff(s) by inhalation twice daily as needed Pulmicort Flexhaler 90 MCG/ACT 2 puffs Inhalation Twice a day for 30 days Mar, Not-Taking/PRN 60 actuat budesonide 0.16 mg/actuat / formoterol fumarate 0.0045 mg/actuat metered dose inhaler (20 sources) Corticosteroid, beta2-Adrenergic Agonist Start: End: take 2 puff(s) by inhalation in the morning budesonide-formotero l (Symbicort) 160-4.5 MCG/ACT inhaler Indications: Moderate persistent asthma without complication (CMS/HCC) Inhale 2 puffs in the morning and 2 puffs before bedtime. 3 each 08/06/2024 08/26/2024 Discontinued (Med list cleanup) codeine phosphate 2 mg/ml / guaiFENesin 20 mg/ml oral solution (8 sources) Opioid Agonist Start: take 10 mL by mouth every four to six hours as needed Cheratussin AC 100-10 MG/5ML 10 ml Orally every 4-6 hrs for 7 days Mar, Not-Taking/PRN Continuous Glucose Sensor (FreeStyle Liv 2 Sensor) misc (15 sources) Start: End: Continuous Glucose Sensor (FreeStyle Liv 2 Sensor) misc Indications: Type 2 diabetes mellitus without complication, with long-term current use of insulin (CMS/HCC) , Uncontrolled type 2 diabetes mellitus with hyperglycemia (CMS/HCC) Inject 1 each under the skin continuously 1 each 08/05/2024 08/26/2024 Discontinued (Other) Start: 08-05-2024 End: 08-05-2025 Continuous Glucose Sensor (F reeStyle Liv 2 Sensor) misc Indications: Type 2 diabetes mellitus without complication, with long-term current use of insulin (CMS/HCC) , Uncontrolled type 2 diabetes mellitus with hyperglycemia (CMS/HCC) Inject 1 each under the skin continuously 1 each 08/05/2024 08/05/2025 Active Start: 06-26-2024 End: 08-04-2024 Continuous Glucose Sensor (F reeStyle Liv 2 Sensor) [facility] Indications: Type 2 diabetes mellitus without complication, with long-term current use of insulin (CMS/HCC) , Uncontrolled type 2 diabetes mellitus with hyperglycemia (CMS/HCC) Inject 1 each under the skin continuously 1 each 06/26/2024 08/04/2024 Discontinued (Reorder) Start: 06-26-2024 End: 06-26-2025 Continuous Glucose Sensor (F reeStyle Liv 2 Sensor) [facility] Indications: Type 2 diabetes mellitus without complication, with long-term current use of insulin (CMS/HCC) , Uncontrolled type 2 diabetes mellitus with hyperglycemia (CMS/HCC) Inject 1 each under the skin continuously 1 each 06/26/2024 06/26/2025 Active 60 actuat formoterol fumarate 0.005 mg/actuat / [...] 2 Puffs as in structed twice daily. 3 ml insulin glargine 100 unt/ml pen injector (12 sources) Insulin Analog Start: 07-14-2024 End: 01-10-2025 insulin glargine (Lantus SoloStar) 100 UNIT/ML pen Indications: Uncontrolled type 2 diabetes mellitus with hyperglycemia (CMS/HCC) Inject 40 Units under the skin at bedtime 3 mL 11 07/14/2024 08/18/2024 Discontinued (Side effects) Start: 06-26-2024 End: 07-08-2024 insulin glargine (Lantus Aidee oStar) 100 UNIT/ML pen Indications: Uncontrolled type 2 diabetes mellitus with hyperglycemia (CMS/HCC) Inject 40 Units under the skin at bedtime 06/26/2024 07/08/2024 Discontinued (Reorder) Multivitamin preparation (8 sources) Multivitamin Not -Taking/PRN Multivitamin Not -Taking oxyCODONE hydrochloride 5 mg oral tablet (20 sources) Opioid Agonist Start: 07-15-2024 End: 09-20-2024 take 2 tablets by mouth every eight hours for pain oxyCODONE (Roxicodone) 5 MG immediate release tablet Indications: Chronic pain syndrome Take 2 tablets (10 mg) by mouth every 8 (eight) hours if needed for severe pain 180 tablet 07/15/2024 08/21/2024 Discontinued (Reorder) Start: 11-19-2023 End: 12-19-2023 take 2 tablets [...] 11:00pm phentermine hydrochloride 37.5 mg oral tablet (5 sources) Sympathomimetic Amine Anorectic Start: 10-16-2023 End: 11-19-2023 take 40-44.9 tablets by mouth before mealtime phentermine (Adipex-P) 37.5 MG tablet Indications: Class 3 severe obesity due to excess calories with serious comorbidity and body mass index (BMI) of 40.0 to 44.9 in adult (CMS/[facility]) Take 1 tablet (37.5 mg) [...] with (acute) exacerbation] Onset: 03-05-2023 11-08-2023 Chronic Deficiency and other anemia (1 source) Anemia; Translations: [Anemia, unspecified] 08-21-2024 Episodic Diabetes mellitus with complications (20 sources) Type 2 diabetes mellitus with hyperglycemia; Translations: [Type II diabetes mellitus uncontrolled] Onset: 12-21-2022 Chronic Diabetes mellitus without complication (20 sources) Type 2 diabetes mellitus without complications; Translations: [Type 2 diabetes mellitus without complication] Onset: 03-05-2023 09-24-2023 Chronic Disorders of lipid metabolism (20 sources) Hyperlipidemia; Translations: [Hyperlipidemia, unspecified] Onset: 09-24-2023 [...] psychological factors] Onset: 12-28-2022 Chronic Mood disorders (17 sources) Major depressive disorder, single episode, in full remission; Translations: [Major depressive disorder] Onset: 03-05-2024 Chronic Osteoarthritis (20 sources) Arthritis of knee; Translations: [Unilateral primary osteoarthritis, right knee] Onset: 10-30-2022 Chronic Other aftercare (1 source) FPC (current) use of oral hypoglycemic drugs; Translations: [CARDIAC CARE NURSE USE ORAL HYPOGLYCEMIC DX] Onset: 03-05-2023 Episodic Other connective tissue disease (1 source) Trochanteric bursitis, right hip Episodic Other diseases of veins and lymphatics (8 sources) Peripheral venous insufficiency; Translations: [Venous insufficiency (chronic) (peripheral)] Episodic Other hereditary and degenerative nervous system conditions (20 sources) Restless legs; Translations: [Restless legs syndrome] Onset: 09-24-2023 09-24-2023 Chronic Other nervous system disorders (20 sources) Chronic pain syndrome; Translations: [Chronic pain syndrome] Onset: 03-30-2023 Chronic Other nervous system disorders (3 sources) Other chronic pain; Translations: [OTHER CHRONIC PAIN] Onset: 10-30-2022 Chronic Other nervous system disorders (2 sources) Chronic pain syndrome; Translations: [Chronic pain syndrome] Onset: 02-13-2023 Chronic Other nervous system disorders (15 sources) Paresthesia; Translations: [Paresthesia of skin] Onset: 06-10-2024 06-10-2024 Episodic Other non-traumatic joint disorders (20 sources) Polyarthropathy; Translations: [Polyarthritis, unspecified] Onset: 09-24-2023 09-24-2023 Chronic Other non-traumatic joint disorders (1 source) Pain in right hip Episodic Other nutritional; endocrine; and metabolic disorders (20 sources) Metabolic syndrome X; Translations: [Metabolic syndrome X] Onset: 09-24-2023 09-24-2023 Chronic Other nutritional; endocrine; and metabolic disorders (20 sources) Severe obesity; Translations: [Morbid (severe) obesity due to excess calories] Onset: 10-16-2023 10-16-2023 Chronic Other nutritional; endocrine; and metabolic disorders (15 sources) Obesity; Translations: [Obesity, unspecified] Onset: 06-10-2024 06-10-2024 Chronic Other screening for suspected conditions (not mental disorders or infectious disease) (1 source) Encounter for screening for lipoid disorders; Translations: [ENC SCREENING FOR LIPOID DISORDERS] Onset: 12-29-2022 Episodic Other upper respiratory infections (1 source) Chronic sinusitis, unspecified; Translations: [CHRONIC SINUSITIS UNSPECIFIED] Onset: 10-24-2022 Chronic Residual codes; unclassified (17 sources) Hypersomnia; Translations: [Hypersomnia, unspecified] Onset: 11-19-2023 11-19-2023 Chronic Residual codes; unclassified (15 sources) Periodic limb movement disorder; Translations: [Periodic limb movement disorder] Onset: 03-06-2024 03-06-2024 Chronic Residual codes; unclassified (15 sources) Obstructive sleep apnea syndrome; Translations: [Obstructive [...] (1 source) APPOINTMENT CANCELLED Unclassified (1 source) CARDIAC CARE NURSE INJECT NONINSULN ANTIDIAB; Translations: [CARDIAC CARE NURSE INJECT NONINSULN ANTIDIAB] Onset: 03-05-2023 Unclassified (3 [...] 07-14-2022 Episodic Other aftercare (1 source) Other medical terminologist (current) drug therapy; Translations: [OTH CUSTODIAL CURRENT DRUG THERAPY] Onset: 10-24-2022 Episodic Other aftercare (15 sources) Long-term current use of drug therapy; [...] bilateral low back pain without sciatica] Onset: 05-27-2023 Episodic Unclassified (1 source) LOW BACK PAIN, UNSPECIFIED; Translations: [LOW BACK PAIN, UNSPECIFIED] Onset: 08-18-2022 Results Test Name Value Interpretation Reference Range [facility] Interpretation and review of laboratory results Abnormal [facility] TBH IRON 55 ug/dL Low 65.0 - 175.0 ug/dL [facility] PERCENT IRON SATURATION 20.4 % [facility] TB TOTAL IRON BINDING CAPACITY 269 ug/dL 250.0 - 450.0 ug/dL [facility] CBC WITH AUTO DIFFon BASOPHILS ABSOLUTE AUTO 0.1 [facility] Basophils/100 WBC (Bld) 0.6 % 0.2 - 2.0 % [facility] Eosinophils/100 WBC (Bld) 2.2 % 0.9 - 7.0 % [facility] Erythrocyte distribution width (RBC) [Ratio] 13.2 % 11.0 - 15.0 % [facility] Hematocrit (Bld) [Volume fraction] 41 % Low 42.0 - 54.0 % [facility] Hemoglobin (Bld) [Mass/Vol] 14.2 g/dL 14.0 - 18.0 g/dL [facility] IMMATURE GRANULOCYTES ABS AUTO 0.05 High [facility] Immature granulocytes/100 WBC (Bld) 0.5 % 0.0 - 0.5 % [facility] Interpretation and review of laboratory results Abnormal [facility] LYMPHOCYTES ABSOLUTE AUTO 2.7 [facility] Lymphocytes/100 WBC (Bld) 24.1 % 20.5 - 60.0 % [facility] MCH (RBC) [Entitic mass] 30.6 pg 25.9 - 34.0 pg [facility] MCHC (RBC) [Mass/Vol] 34.6 g/dL 29.9 - 35.2 g/dL [facility] MCV (RBC) [Entitic vol] 88.4 fL 80.0 - 94.0 fL [facility] MONOCYTES ABSOLUTE AUTO 0.8 [facility] Monocytes/100 WBC (Bld) 7 % 1.7 - 12.0 % [facility] NEUTROPHILS ABSOLUTE AUTO 7.2 High [facility] Neutrophils/100 WBC (Bld) 65.6 % 43.0 - 75.0 % [facility] Platelet mean volume (Bld) [Entitic vol] 10.1 fL 9.5 - 13.5 fL [facility] TB EO # 0.2 [facility] PLT 336 [facility] RBC 4.64 Low [facility] WBC 11 [facility] CMP (CMP) (FOR REMOTE FH C USE)on 08-19-2024 Albumin [Mass/Vol] 3.7 g/dL 3.4 - 5.0 g/dL [facility] ALBUMIN [facility]ULIN RATIO [facility] ALP [Catalytic activity/Vol] 99 U/L 46 - 116 U/L [facility] ALT [Catalytic activity/Vol] 29 U/L 16 - 63 U/L [facility] Anion gap [Moles/Vol] 16.2 mmol/L [facility] AST [Catalytic activity/Vol] 15 U/L 15 - 37 U/L [facility] Bilirubin [Mass/Vol] 0.3 mg/dL 0.2 - 1 .0 mg/dL [facility] Calcium [Mass/Vol] 9.4 mg/dL 8.5 - 10. 1 mg/dL [facility] Chloride [Moles/Vol] 101 mmol/L 98 - 10 7 mmol/L [facility] CO2 [Moles/Vol] 26 mmol/L 21.0 - 32.0 mmol/L [facility] Creatinine [Mass/Vol] 0.99 mg/dL 0.70 - 1.30 mg/dL [facility] GFR/1.73 sq M.predicted CKD-EPI (S/P/Bld) [Vol rate/Area] >60 >=60 mL/min/1.73m 2 [facility] Globulin (S) [Mass/Vol] 3.5 g/dL [facility] Glucose [Mass/Vol] 149 mg/dL High 74 - 106 mg/dL [facility] Interpretation and review of laboratory results Abnormal [facility] Potassium [Moles/Vol] 4.2 mmol/L 3.5 - 5.1 mmol/L [facility] Protein [Mass/Vol] 7.2 g/dL 6.4 - 8.2 g/dL [facility] Sodium [Moles/Vol] 139 mmol/L 136 - 145 mmol/L [facility] EGFR-NON AF YEMENI >60 >=60 mL/min/1.73m 2 [facility] Urea nitrogen [Mass/Vol] 8 mg/dL 7.0 - 18.0 mg/dL [facility] Urea nitrogen/Creatinine [Mass ratio] 8.1 mg/mg [facility] MLR HEMOGLOBIN A1Con 024 Glucose [Mass/Vol] 174 mg/dL [facility] HbA1c (Bld) [Mass fraction] 7.7 % High 4.5 - 6.2 % [facility] Comment on above: ADA RECOMMENDED LIMI T 4.0 - 6.0 ADA THERAPEUTIC TARGET < 7.0 ACTION SUGGESTED > 7.0 Interpretation and review of laboratory results Abnormal [facility] Orders Onlyon 05-26-2024 Orders Only [id number] Bhavesh Cárdenas 1975 Date Provider Department Center 05/26/2024 [id number]-[id number] FORMAN PAIN [facility] Family History Problem Relation Age of Onset Multiple sclerosis Father Prostate cancer Father Family Status - Relation Status Age at Father Normal [facility] Orders Onlyon 05-22-2024 Orders Only [id number] Bhavesh Cárdenas 1975 Date Provider Department Center 05/22/2024 [id number] BRIONES MP PROC [facility] Family History Problem Relation Age of Onset Multiple sclerosis Father Prostate cancer Father Family Status - Relation Status Age at Father Normal [facility] Office Visiton 04-16-2024 Follow-up visit [id number] Bhavesh Cárdenas 1975 Date Provider Department Center 04/16/2024 Cristel-ANANT SPANN PAIN [facility] Family History Problem Relation Age of Onset Multiple sclerosis Father Prostate cancer Father Family Status - Relation Status Age at Father Level of Service:82339 [place] OFFICE/OUTPATIENT ESTABLISHED MOD MDM 30 MIN Reason for Visit and Comments: Pain [136] - Chief complaint - pain from the neck all the way to the lower back that radiates through the groin area and down the legs Normal [facility] Procedure Visiton 03-05-2024 Procedure Visit [id number] Bhavesh Cárdenas 1975 Date Provider Department Center 03/05/2024 [id number] JAMES [facility] Eloise Heal Family History Problem Relation Age of Onset Multiple sclerosis Father Prostate cancer Father Family Status - Relation Status Age at Father Level of Service:69067 [place] OFFICE/OP CONSLTJ NEW/EST PT HIGH MDM 55 MINUTES Reason for Visit and Comments: Psychiatric Evaluation [565896] [facility] Office Visiton 02-19-2024 Follow-up visit [id number] Bhavesh Cárdenas Tere 1975 M Date Provider Department Center 02/19/2024 DANNI PENA [facility] SURG Second Fl Family History Problem Relation Age of Onset Multiple sclerosis Father Prostate cancer Father Family Status - Relation Status Age at Father Level of Service:53413 [place] OFFICE/OP CONSLTJ NEW/EST PT MOD MDM 40 MINUTES Reason for Visit and Comments: Follow-up [885144] - Pt is here for an office visit to discuss SCS. [facility] 36on 12-03-2023 36 Spoke with patient. Advised him that I had reviewed his cervical and lumbar spine imaging as well as EMG results with Dr. Mckay and that Dr. Mckay does not see anything on imaging or [...] I did offer to refer him to [facility] for a second opinion for pain management and to discuss possibility of spinal cord stimulation. He will consider his options and will let us know if he would like a referral. [facility] 36on 11-29-2023 36 [facility] called [facility] recently seen and would like to know if MRI completed at [facility] has been rec'd and reviewed. He can be reached at [phone] [facility] Telephoneon 11-29-2023 Telephone [id number] Bhavesh Cárdenas 1975 M Date Provider Department Center 11/29/2023 DUNIA SUAREZ [facility] SURG Second Fl Family History Problem Relation Age of Onset Multiple sclerosis Father Prostate cancer Father Family Status - Relation Status Age at Father [facility] Consulton 11-21-2023 Consult [id number] Bhavesh Cárdenas 1975 M Date Provider Department Center 11/21/2023 Yandy-DUNIA SCHMIDT [facility] SURG Second Fl Family History Problem Relation Age of Onset Multiple sclerosis Father Prostate cancer Father Family Status - Relation Status Age at Father Level of Service:[address] [place] OFFICE/OUTPATIENT NEW HIGH MDM 60 MINUTES Reason for Visit and Comments: Consult [484] - Bhavesh is here today for a consult for Lumbar spondylosis. 2nd opinion. Imaging requested from [facility]. Normal [facility] Automated erythrocytes count in urine sediment (number/area)Ordered By: Kristina Delgado on 08-24-2023 RBC Auto (Urine sed) [#/Area] None seen [HPF] 0-4 [facility] Automated leukocytes count i n urine sediment (number/area)Ordered By: Kristina Delgado on 08-24-2023 WBC Auto (Urine sed) [#/Area] None seen [HPF] 0-4 [facility] Bilirubin Test strip Ql (U)O rdered By: Kristina Delgado on 08-24-2023 Bilirubin Ql (U) Negative Negative [facility] CT lumbar spine wo conon CT lumbar spine wo con [place] [address] CT Scan Report Signed Patient: Bhavesh Cárdenas MR#: [id number] : 1975 Acct:[id number] Age/Sex: 47 / M ADM Date: 08/24/23 Loc: ER Room: Type: [facility] ER Attending Dr: Copies to: DU [...] Polina Cabrera M.D.08/24/2023 3:01 PM Dictation Location: [place] [address] Transcribed By: [facility] 08/24/23 1501 Dictated By: Polina Cabrera MD 08/24/23 1453 Signed By: 08/24/23 1501 Normal [facility] Color Auto (U)Ordered By: Ly Delgado on 08-24-2023 Color (U) Yellow Yellow [facility] Dipstick and Microscopicon 1 10-24-2022 Appearance (U) Cloudy Critically abnormal Clear [facility] Comment on above: Order Comment: Name Collection Type:: Clean-Voided Midstream Performed By: #### A DDONUAPLUS #### [address] Bacteria,Urine None Seen Normal None Seen [facility] Comment on above: Order Comment: Name Collection Type:: Clean-Voided Midstream Performed By: #### A DDONUAPLUS #### [facility] [address] [place] [address] [place] Bilirubin,Urine Negative Normal Negative [facility] Comment on above: Order Comment: Name Collection Type:: Clean-Voided Midstream Performed By: #### A DDONUAPLUS #### [facility] [address] [place] [address] [place] Color (U) Yellow Normal Yellow [facility] Comment on above: Order Comment: Name Collection Type:: Clean-Voided Midstream Performed By: #### A DDONUAPLUS #### [facility] [address] [place] [address] Glucose Ql (U) 100 mg/dL High Normal [facility] Comment on above: Order Comment: Name Collection Type:: Clean-Voided Midstream Performed By: #### A DDONUAPLUS #### [facility] [address] [place] [address] [place] Hyaline Casts,Urine None Seen Normal 0-8 [facility] Comment on above: Order Comment: Name Collection Type:: Clean-Voided Midstream Result Comment: PERF ORMED BY: [place] [address] PATHOLOGIST MINE ANALYST COLUMBA CHRISTY M.D. Performed By: #### A DDONUAPLUS #### [facility] [address] [place] [address] Ketones Ql (U) Negative Normal Negative [facility] Comment on above: Order Comment: Name Collection Type:: Clean-Voided Midstream Performed By: #### A DDONUAPLUS #### [facility] [address] [place] [address] [place] Leukocyte esterase Test strip Ql (U) Negative Normal Negative [facility] Comment on above: Order Comment: Name Collection Type:: Clean-Voided Midstream Performed By: #### A DDONUAPLUS #### [facility] [address] [place] [address] [place] Nitrite,Urine Negative Normal Negative [facility] Comment on above: Order Comment: Name Collection Type:: Clean-Voided Midstream Performed By: #### A DDONUAPLUS #### [address] Occult Blood,Urine Negative Normal Negative [facility] Comment on above: Order Comment: Name Collection Type:: Clean-Voided Midstream Result Comment: PERF ORMED BY: [place] [address] PATHOLOGIST MINE ANALYST COLUMBA CHRISTY M.D. Performed By: #### A DDONUAPLUS #### [address] pH (U) 6.0 [pH] Normal 5.0-9.0 [facility] Comment on above: Order Comment: Name Collection Type:: Clean-Voided Midstream Performed By: #### A DDONUAPLUS #### [place] [address] [place] Protein,Urine Negative Normal Negative [facility] Comment on above: Order Comment: Name Collection Type:: Clean-Voided Midstream Performed By: #### A DDONUAPLUS #### [address] RBC,Urine None Seen Normal 0-4 [facility] Comment on above: Order Comment: Name Collection Type:: Clean-Voided Midstream Performed By: #### A DDONUAPLUS #### [place] [address] [place] Specificy [place],Urine 1.013 Normal 1.001-1.030 [facility] Comment on above: Order Comment: Name Collection Type:: Clean-Voided Midstream Performed By: #### A DDONUAPLUS #### [place] [address] [place] Squamous Epithelial Cell,Urine None Seen Normal 0-2 [facility] Comment on above: Order Comment: Name Collection Type:: Clean-Voided Midstream Performed By: #### A DDONUAPLUS #### [address] Urobilinogen,Urine Normal Normal Normal [facility] Comment on above: Order Comment: Name Collection Type:: Clean-Voided Midstream Performed By: #### A DDONUAPLUS #### [facility] [address] WBC,Urine None Seen Normal 0-4 [facility] Comment on above: Order Comment: Name Collection Type:: Clean-Voided Midstream Performed By: #### A DDONUAPLUS #### [facility] [address] Ketones Auto test strip (U) [Mass/Vol]Ordered By: Kristina Delgado on 08-24-2023 Ketones (U) [Mass/Vol] Negative Negative [facility] Laboratory - UrinalysisOrder ed By: Kristina Delgado on 08-24-2023 Hyaline casts LM Ql (Urine sed) None seen [LPF] 0-8 [facility] Nitrite Test strip Ql (U)Ord ered By: Kristina Delgado on 08-24-2023 Nitrite Ql (U) Negative Negative [facility] Protein Auto test strip (U) [Mass/Vol]Ordered By: Kristinanelda Delgado on 08-24-2023 Protein (U) [Mass/Vol] Negative Negative [facility] Specific gravity Auto test s trip (U) [Rel density]Ordered By: Kristina Delgado on 08-24-2023 Specific gravity (U) [Rel density] 1.013 1.001-1.030 [facility] Squamous epithelial cells de tection in urine sediment by light microscopyOrdered By: Kristina Delgado on 08-24-2023 Epithelial cells.squamous LM Ql (Urine sed) None seen [HPF] 0-2 [facility] Urine bacteria detection by automated methodOrdered By: Kristina Delgado on 08-24-2023 Bacteria Auto Ql (U) None seen None Seen [facility] Urine clarity by refractomet ry automatedOrdered By: Kristina Delgado on 08-24-2023 Clarity Refractometry automated (U) Cloudy Clear [facility] Urine glucose measurement by automated test strip (mass/volume)Ordered By: Kristina Delgado on 08-24-2023 Glucose Auto test strip (U) [Mass/Vol] 100 mg/dL Normal [facility] Urine hemoglobin detection b y automated test stripOrdered By: Kristinanelda Delgado on 08-24-2023 Hemoglobin Auto test strip Ql (U) Negative Negative [facility] Urine leukocyte esterase det ection by automated test stripOrdered By: Kristina Ninorubin on 08-24-2023 Leukocyte esterase Auto test strip Ql (U) Negative Negative [facility] Urobilinogen Auto test strip (U) [Mass/Vol]Ordered By: Kristina Ninoimyanira on 08-24-2023 Urobilinogen (U) [Mass/Vol] Normal mg/dL Normal [facility] pH Auto test strip (U)Ordere d By: Kristina Ninorubin on 08-24-2023 pH (U) 6.0 [pH] 5.0-9.0 [facility] MR lumbar spine wo conon MR lumbar spine wo [place] [address] MRI Report Signed Patient: Bhavesh Cárdenas MR#: [id number] : 1975 Acct:[id number] Age/Sex: 47 / M ADM Date: 06/21/23 Loc: Room: Type: 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 Copies to: KINJAL William Ordering Provider: KINJAL [...] Clayton Joe M.D.06/22/2023 1:14 PM Dictation Location: [place] [address] Transcribed By: [facility] 06/22/23 1314 Dictated By: Clayton Joe II, MD 06/22/23 1308 Signed By: 06/22/23 1314 [facility] MR thoracic spine wo conon 0 05-16-2023 MR thoracic spine wo con [facility] [place] [id number] MRI Report Signed Patient: Bhavesh Cárdenas MR#: [id number] : 1975 Acct:[id number] Age/Sex: 47 / M ADM Date: 05/16/23 Loc: MR Room: Type: REG CLI Attending Dr: Tracy Wu 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 BHAVESH CÁRDENAS ([id number]) 1975 M Date Time Provider Department 03/28/23 KB LORENZO During your visit today, we recorded the following information about you: Lori Woody RN 03/28/2023 2:37 PM Signed Weight entered in [employer] Allergies As of Date: 03/28/2023 Noted Allergy [...] Encounter Status:Closed by [facility]NA [facility] (NEPREM) MELIABHAVESH Tere ([id number]) 1975 M Date Time Provider Department 03/27/23 F PROVIDER KIESHA During your visit today, we [...] Encounter Status:Closed by LORNA ANAYA on 03/27/23 [facility] 02-19-2023 [facility] Telephone (NEPREM) BHAVESH CÁRDENAS ([id number]) 1975 M Date Time Provider Department 02/19/23 [...] increase in pain, requests phone call at [phone]. Lori Woody RN 02/21/2023 3:57 PM Addendum [...] to schedule a follow up with Dr. Lroenzo as well as his PCP. Pt stated understanding and given the office number. Allergies As of Date: 02/19/2023 Noted Allergy Reaction NSAIDS (NON-STEROIDAL ANTI-INFLAM* 3 10 - Anaphylaxis 14 - Other: See Comments 12 - Shortness of Breath 7 - Swelling Date Reviewed: 01/24/2023 Reviewed by: Blank Moya RN - Fully Assessed Reason for Visit: Patient Question [7880] Prescriptions as of 02/21/2023 - traZODone (DESYREL) [...] Encounter Status:Closed by LORNA ANAYA on 02/19/23 [facility] 02-09-2023 [facility] Telephone (NEPREM) BHAVESH CÁRDENAS ([id number]) 1975 M Date Time Provider Department 02/09/23 [...] Fully Assessed Reason for Visit: Patient Question [6556] Order(s):methylPREDNI Solone (MEDROL, GUSTABO,) 4 mg Dose-PackUse [...] Status:Closed by LORNA ANAYA on 02/09/23 Normal [facility] XR lumbar spine min 4V*on XR lumbar spine min 4V* [place] [address] XRay Report Signed Patient: Bhavesh Cárdenas MR#: [id number] : 1975 Acct:[id number] Age/Sex: 47 / M ADM Date: 01/27/23 Loc: ER Room: Type: [facility] ER Attending Dr: Copies to: DU [...] Polina Cabrera M.D.01/27/2023 11:42 AM Dictation Location: [place] [address] Transcribed By: [facility] 01/27/23 1142 Dictated By: Polina Cabrera MD 01/27/23 1138 Signed By: 01/27/23 1142 [facility] HISTORY PHYSICALon HISTORY PHYSICAL HNO ID: [id number] Author: Kb Lorenzo DO Service: ? Author [...] January 24, 2023 TIME: 9:47 AM Normal [facility] NURSING PROGon 01-24-2023 NURSING PROG HNO ID: [id number] Author: Blank Moya RN Service: ? Author Type: Registered Nurse Type: Nursing Progress Note Filed: 01/29/2023 9:01 AM Note Text: Summary: Post-Procedure Call Post Procedure Follow Up Phone Call. No answer. The patient was instructed to call [phone] with the percentage of pain relief and what activities have improved. Blank Moya RN January 29, 2023 Normal [facility] OPERATIVE NOon 01-24-2023 OPERATIVE NO HNO ID: [id number] Author: Kb Lorenzo DO Service: ? Author Type: Physician Type: Operative Report Filed: 01/24/2023 10:12 AM Note Text: LOG ID: [id number] Surgery/Procedure Date: 01/24/2023 Surgeon: Kb Lorenzo DO Rehab Services Aide: Washington Joya MD Procedure(s): Bilateral Sacroiliac Joint [...] January 24, 2023 TIME: 10:11 AM Normal [facility] NURSING PROGon 01-22-2023 NURSING PROG HNO ID: [id number] Author: Frank Marrufo RN Service: Pain Management [...] 2 hours before the appointment. 2. A retail delivery driver must be present who can drive you home. If you are coming by medical transport, you must have a responsible person other than the coroner transport technician with you. 3. If you take any [...] or cannot make the appointment by calling [phone] (Option 2). Normal [facility] CNPNon 01-11-2023 CNPN Telephone (NPRC21) BHAVESH CÁRDENAS ([id number]) 1975 M Date Time Provider Department 01/11/23 LORI WOODY NPR1 During your visit today, we recorded the following information about you: Lori Woody RN 01/11/2023 8:29 AM Signed Phoned and spoke with Bhavesh Cárdenas to confirm appointment for spine procedure on 01/24/23 with the arrival time of 845 for 930 am appointment. Patient verbalized understanding of the following: -Provided education on spine procedure and answered questions related to spine injection procedure. 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 INR<1.3 Taking aspirin 81mg: no Any open wounds/sores?: no Taking Antibiotics?: no Diabetic: no , notified that blood sugar will be taken at office and ok to take morning diabetes medication. Is this patient's first injection?: no, any complications: no Patient notified that Klonopin PO can be given prior to injection to help with anxiety. Patient verbalized understanding. Patient given number [phone], spine injections schedulers, if there is any [...] Status:Closed by LORI WOODY on 01/11/23 Normal [facility] CBC AUTO DIFFon 12-21-2022 BASO # 0.1 103/ul Normal 0.0-0.1 [facility] Comment on above: Performed By: #### C BC #### [facility] [address] [place] [address] [address] Osacr Ocampo Basophils/100 WBC (Bld) 0.6 % Normal 0.2-2.0 [facility] Comment on above: Performed By: #### C BC #### [facility] [address] [place] [address] [address] Oscar Ocampo EO # 0.2 103/ul Normal 0.0-0.7 [facility] Comment on above: Performed By: #### C BC #### [facility] [address] [place] [address] Dr. Oscar Ocampo Eosinophils/100 WBC (Bld) 1.7 % Normal 0.9-7.0 [facility] Comment on above: Performed By: #### C BC #### [facility] [address] [place] [address] Dr. Oscar Ocampo Erythrocyte distribution width (RBC) [Ratio] 12.2 % Normal 11.0-15.0 [facility] Comment on above: Performed By: #### C BC #### [facility] [address] [place] [address] Dr. Oscar Ocampo Hematocrit (Bld) [Volume fraction] 44.4 % Normal 42.0-54.0 [facility] Comment on above: Performed By: #### C BC #### [facility] [address] [place] [address] Dr. Oscar Ocampo Hemoglobin (Bld) [Mass/Vol] 14.9 g/dL Normal 14.0-18.0 [facility] Comment on above: Performed By: #### C BC #### [facility] [address] [place] [address] Dr. Oscar Ocampo IG # 0.03 10e3/ul Normal 0.00-0.03 [facility] Comment on above: Performed By: #### C BC #### [facility] [address] [place] [address] Dr. Oscar Ocampo IG % 0.3 % Normal 0.0-0.5 [facility] Comment on above: Performed By: #### C BC #### [facility] [address] [place] [address] Dr. Oscar Ocampo LYMPH # 2.9 103/ul Normal 1.2-3.8 [facility] Comment on above: Performed By: #### C BC #### [facility] [address] [place] [address] Dr. Oscar Ocampo Lymphocytes/100 WBC (Bld) 32.6 % Normal 20.5-60.0 [facility] Comment on above: Performed By: #### C BC #### [facility] [address] [place] [address] Dr. Oscar Ocampo MANUAL DIFF REQ NO Normal [facility] Comment on above: Performed By: #### C BC #### [facility] [address] [place] [address] Dr. Oscar Ocampo MCH (RBC) [Entitic mass] 30.0 pg Normal 25.9-34.0 [facility] Comment on above: Performed By: #### C BC #### [facility] [address] [place] [address] Dr. Oscar Ocampo MCHC (RBC) [Mass/Vol] 33.6 g/dL Normal 29.9-35.2 [facility] Comment on above: Performed By: #### C BC #### [facility] [address] [place] [address] Dr. Oscar Ocampo MCV (RBC) [Entitic vol] 89.3 fL Normal 80.0-94.0 [facility] Comment on above: Performed By: #### C BC #### [facility] [address] [place] [address] Dr. Oscar Ocampo MONO # 0.8 103/ul Normal 0.3-0.8 [facility] Comment on above: Performed By: #### C BC #### [facility] [address] [place] [address] Dr. Oscar Ocampo Monocytes/100 WBC (Bld) 8.7 % Normal 1.7-12.0 [facility] Comment on above: Performed By: #### C BC #### [facility] [address] [place] [address] Dr. Oscar Ocampo NEUT # 5.1 103/ul Normal 1.4-6.5 [facility] Comment on above: Performed By: #### C BC #### [facility] [address] [place] [address] Dr. Oscar Ocampo Neutrophils/100 WBC (Bld) 56.1 % Normal 43.0-75.0 [facility] Comment on above: Performed By: #### C BC #### [facility] [address] [place] [address] Dr. Oscar Ocampo Platelet mean volume (Bld) [Entitic vol] 10.5 fL Normal 9.5-13.5 [facility] Comment on above: Performed By: #### C BC #### [facility] [address] [place] [address] Dr. Oscar Ocampo PLT 311 103/ul Normal 150-450 [facility] Comment on above: Performed By: #### C BC #### [facility] [address] [place] [address] Dr. Oscar Ocampo RBC 4.97 106/ul Normal 4.70-6.10 [facility] Comment on above: Performed By: #### C BC #### [facility] [address] [place] [address] Dr. Oscar Ocampo WBC 9.0 103/ul Normal 4.0-11.0 [facility] Comment on above: Performed By: #### C BC #### [facility] [address] [place] [address] Dr. Oscar Ocampo GLYCOHEMOGLOBIN A1Con 2022 ADA RECOMMENDATION SEE BELOW Normal [facility] Comment on above: Result Comment: ADA RECOMMENDED LIMIT 4.0 - 6.0 ADA THERAPEUTIC TARGET < 7.0 ACTION SUGGESTED > 7.0 Performed By: #### A 1C #### [facility] [address] [place] [address] Dr. Oscar Ocampo Glucose [Mass/Vol] 289 mg/dL Normal [facility] Comment on above: Performed By: #### A 1C #### [facility] [address] [place] [address] [address] Oscar Ocampo HbA1c (Bld) [Mass fraction] 11.7 % Critically high 4.5-6.2 [facility] Comment on above: Performed By: #### A 1C #### [facility] [address] [place] [address] [address] Oscar Ocampo LIPID PROFILEon 12-21-2022 CHOL-HDL RATIO NORM SEE BELOW Normal [facility] Comment on above: Result Comment: 3.3 - 4.4 LOW RISK 4.4 - 7.1 AVERAGE RISK 7.1 - 11.0 MODERATE RISK >11.0 HIGH RISK Performed By: #### L IPID, BMP #### [facility] [address] [place] [address] Dr. Oscar Ocampo Cholesterol [Mass/Vol] 217 mg/dL Critically high <=200 [facility] Comment on above: Performed By: #### L IPID, BMP #### [facility] [address] [place] [address] Dr. Oscar Ocampo Cholesterol in HDL [Mass/Vol] 40 mg/dL Normal 40-60 [facility] Comment on above: Performed By: #### L IPID, BMP #### [facility] [address] [place] [address] Dr. Oscar Ocampo Cholesterol in LDL [Mass/Vol] 133.4 mg/dL Normal [facility] Comment on above: Performed By: #### L IPID, BMP #### [facility] [address] [place] [address] [address] Oscar Ocampo Cholesterol.total/Ch olesterol in HDL [Mass ratio] 5.4 {ratio} Normal [facility] Comment on above: Performed By: #### L IPID, BMP #### [facility] [address] [place] [address] Dr. Oscar Ocampo HDL NORMAL > or = 60 mg/dl - LO W CARDIOVASCULAR RISK <40 mg/dl - HIGH CARDIOVASCULAR RISK Normal [facility] Comment on above: Performed By: #### L IPID, BMP #### [facility] [address] [place] [address] [address] Oscar Ocampo LDL CALC NORMAL SEE BELOW Normal [facility] Comment on above: Result Comment: <100 mg/dl OPTIMAL 100 - 129 mg/dl NEAR OR ABOVE OPTIMAL 130 - 159 mg/dl BORDERLINE HIGH 160 - 189 mg/dl HIGH >190 mg/dl VERY HIGH Performed By: #### L IPID, BMP #### [facility] [address] [place] [address] [address] Oscar Ocampo Triglyceride [Mass/Vol] 218 mg/dL Critically high <=150 [facility] Comment on above: Performed By: #### L IPID, BMP #### [facility] [address] [place] [address] [address] Oscar Ocampo VLDL CALC 43.6 mg/dL Normal [facility] Comment on above: Performed By: #### L IPID, BMP #### [facility] [address] [place] [address] Dr. Oscar Ocampo PROF CHEM 8 (BAS METB)on Anion gap [Moles/Vol] 12.6 mmol/L Normal [facility] Comment on above: Performed By: #### L IPID, BMP #### [facility] [address] [place] [address] [address] Oscar Ocampo Calcium [Mass/Vol] 9.6 mg/dL Normal 8.5-10.1 [facility] Comment on above: Performed By: #### L IPID, BMP #### [facility] [address] [place] [address] [address] Oscar Ocampo Chloride [Moles/Vol] 100 mmol/L Normal 98-107 [facility] Comment on above: Performed By: #### L IPID, BMP #### [facility] [address] [place] [address] [address] Oscar Ocampo CO2 [Moles/Vol] 28.6 mmol/L Normal 21.0-32.0 [facility] Comment on above: Performed By: #### L IPID, BMP #### [facility] [address] [place] [address] Dr. Oscar Ocampo Creatinine [Mass/Vol] 0.84 mg/dL Normal 0.70-1.30 [facility] Comment on above: Performed By: #### L IPID, BMP #### [facility] [address] [place] [address] Dr. Oscar Ocampo EGFR-AF YEMENI >60 Normal >=60 [facility] Comment on above: Performed By: #### L IPID, BMP #### [facility] [address] [place] [address] Dr. Oscar Ocampo EGFR-NON AF YEMENI >60 Normal >=60 [facility] Comment on above: Performed By: #### L IPID, BMP #### [facility] [address] [place] [address] Dr. Oscar Ocampo Glucose [Mass/Vol] 197 mg/dL Critically high 74-106 T [facility] Comment on above: Performed By: #### L IPID, BMP #### [facility] [address] [place] [address] Dr. Oscar Ocampo Potassium [Moles/Vol] 4.2 mmol/L Normal 3.5-5.1 [facility] Comment on above: Performed By: #### L IPID, BMP #### [facility] [address] [place] [address] Dr. Oscar Ocampo Sodium [Moles/Vol] 137 mmol/L Normal 136-145 [facility] Comment on above: Performed By: #### L IPID, BMP #### [facility] [address] [place] [address] Dr. Oscar Ocampo Urea nitrogen [Mass/Vol] 14.0 mg/dL Normal 7.0-18.0 [facility] Comment on above: Performed By: #### L IPID, BMP #### [facility] [address] [place] [address] Dr. Oscar Ocampo Urea nitrogen/Creatinine [Mass ratio] 16.7 mg/mg Normal [facility] Comment on above: Performed By: #### L IPID, BMP #### [facility] [address] [place] [address] Dr. Oscar Ocampo CNPNon 12-15-2022 CNPN Telephone (NPRC21) BHAVESH CÁRDENAS ([id number]) 1975 M Date Time Provider Department 12/15/22 [...] Encounter Status:Closed by LORI WOODY on 12/15/22 [facility] Bridget 11-24-2022 CNOV Office Visit (SPNMMN ) BHAVESH CÁRDENAS ([id number]) 1975 M Date Time Provider Department 11/24/22 10:00 AM SPINE MED PROCEDURE MAIN SPNMMN During your visit today, we recorded the following information about you: Temperature Pulse Respiration Blood pressure 98.2 degrees 89/minute 18/minute 140/94 Patricia Velez Warner 12/26/2022 10:12 AM Signed cancelled Gillian Vega RN 11/24/2022 10:54 AM Signed PATIENT NAME: Bhavesh Cárdenas 1975 47 year old Current medications and allergies reviewed with patient in visit navigator: Yes Baseline vital signs and pain assessment entered in activity in visit navigator: Yes [employer] 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 Menstrual Date: NA Undergone Injection in the past: Yes, [place] Time since last PO intake: this am [...] All in agreement. Referring Provider: KB LORENZO [[id number]] Allergies As of Date: 11/24/2022 Noted Allergy Reaction NSAIDS (NON-STEROIDAL ANTI-INFLAM* 10 - Anaphylaxis 14 - Other: See Comments 12 - Shortness of Breath 7 - Swelling Date Reviewed: 11/24/2022 Reviewed by: Gillian Vega RN - Fully Assessed Primary Visit Diagnosis:APPOINTMENT CANCELLED Order(s):GLUCOSE, BLOOD (POC) [[id number]] Order #: [id number]. 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 Menstrual Date: NA Undergone Injection in the past: Yes, [place] Time since last PO intake: this am [...] Status:Closed by PATRICIA VIGIL on 12/26/22 Normal [facility] GLUCOSE, BLOOD (POC)on 11-24 Glucose [Mass/Vol] 430 mg/dL Abnormal 74 - 99 mg/dL [facility] CNPNon 11-16-2022 CNPN Telephone (SPMAMN) MELIABHAVESH Tere ([id number]) 1975 M Date Time Provider Department 11/16/22 KB LORENZO [facility] During your visit today, we recorded the following information about you: Washington Ly LPN 11/16/2022 1:00 PM Signed Tried to reach patient via telephone for pre-procedure guidelines regarding spine injection with Dr. Lorenzo on 11/24/2022, patient unable to talk on phone at this time. Voicemail box is full and cannot accept messages at this time.. Datappraise message sent with pre-procedure guidelines for injection. [...] Status:Closed by WASHINGTON LY on 11/16/22 Normal [facility] CNOVon 11-15-2022 CNOV Office Visit (NPRC21 ) MAXINEBHAVESH AL ([id number]) 1975 M Date Time Provider Department 11/15/22 2:00 PM KB LORENZO NPRC21 During your visit today, we recorded the following information about you: Pulse Respiration Blood pressure 90/minute 18/minute 121/87 Kb Lorenzo DO 12/09/2022 11:53 AM Signed THE [facility] [place] November 15, 2022 This is a in-person visit. 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 He was referred by Olayinka Boyd [address] [facility] [address]. Chief complaint: Center of back pain that [...] doctor and was seen by rheumatology. 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 He started physical therapy In 2020 the patient was sent to a L5-S1 for radiofrequency ablation that were not helpful. The diagnostic blocks was done as well. This was done at [place] [facility]. The patient tried to tolerate [...] patient was seen by neurosurgery here at [facility] and not deemed an appropriate [...] Denies CHF: Denies Uncontrolled HTN: Denies Recent ID: Denies Arrythmias: Denies Afib: Denies Hyperthyroid: Denies [...] Never Substance use: He never used tobacco. @[facility]@ denies current and past significant alcohol use and @cap@ describes current alcohol consumption as 3-4 shots [...] and extrem (more content not included)... Normal [facility] MIKAYLA BY IFA WITH REFLEXon Nuclear Ab IF (S) [Titer] Negative Normal Negative [facility] Comment on above: Order Comment: Speci men Type: BLOOD SPECIMENOrdering Facility: [facility] Address: [address] [place] [address] Result Comment: Anti -nuclear antibody test is used as an aid in diagnosis of systemic autoimmune diseases. Where positive and clinically warranted, follow-up using disease-specific testing is recommended. Low positive titers are not uncommon with advanced age, certain chronic infections, and malignancies among others. Test methodology: Indirect fluorescence immunoassay (IFA) using HEp-2 cells. Performed By: #### A NAIFR ####[facility] LABCLIA [id number] [place] [address] [place] C-REACTIVE PROTEIN (CRP)on 0 10-30-2022 CRP [Mass/Vol] <0.9 mg/dL [facility] CBC W Auto Differential pane l (Bld)on 10-30-2022 Basophils (Bld) [#/Vol] 0.07 10*3/uL Normal <0.11 [facility] Comment on above: Order Comment: Speci men Type: BLOOD SPECIMENOrdering Facility: [facility] Address: [address] [place] [address] Performed By: #### 5 7021-8, 4537-7 ####[facility] LABCLIA [id number] [address] [place] Basophils/100 WBC (Bld) 0.8 % Normal [facility] Comment on above: Order Comment: Speci men Type: BLOOD SPECIMENOrdering Facility: [facility] Address: [address] [place], [place] [address] Performed By: #### 5 7021-8, 4536-7 ####[facility] LABCLIA [id number] [place] [address] [place] Differential cell count method Nom (Bld) Auto Normal [facility] Comment on above: Order Comment: Speci men Type: BLOOD SPECIMENOrdering Facility: [facility] Address: [address] [place], [place] [address] Performed By: #### 5 7021-8, 4536-7 ####[facility] LABCLIA [id number] [place] [address] [place] Eosinophils (Bld) [#/Vol] 0.17 10*3/uL Normal <0.46 [facility] Comment on above: Order Comment: Speci men Type: BLOOD SPECIMENOrdering Facility: [facility] Address: [address] [place], [place] [address] Performed By: #### 5 7021-8, 7 ####[facility] LABCLIA [id number] [address] [place] Eosinophils/100 WBC (Bld) 1.9 % Normal [facility] Comment on above: Order Comment: Speci men Type: BLOOD SPECIMENOrdering Facility: [facility] Address: [address] [place], [place] [address] Performed By: #### 5 7021-8, 4536-7 ####[facility] LABCLIA [id number] [place] [address] [place] Erythrocyte distribution width (RBC) [Ratio] 11.8 % Normal 11.5-15.0 [facility] Comment on above: Order Comment: Speci men Type: BLOOD SPECIMENOrdering Facility: [facility] Address: [address] Performed By: #### 5 7021-8, 7 ####[facility] LABCLIA [id number] [place] [address] [place] Hematocrit (Bld) [Volume fraction] 45.8 % Normal 39.0-51.0 [facility] Comment on above: Order Comment: Speci men Type: BLOOD SPECIMENOrdering Facility: [facility] Address: [address] [place], [place] [address] Performed By: #### 5 7021-8, 7 ####[facility] LABIA [id number] [place] [address] [place] Hemoglobin (Bld) [Mass/Vol] 15.7 g/dL Normal 13.0-17.0 [facility] Comment on above: Order Comment: Speci men Type: BLOOD SPECIMENOrdering Facility: [facility] Address: [address] [place], [place] [address] Performed By: #### 5 7021-8, 7 ####[facility] LABIA [id number] [place] [address] [place] Immature granulocytes (Bld) [#/Vol] 0.06 10*3/uL Normal <0.10 [facility] Comment on above: Order Comment: Speci men Type: BLOOD SPECIMENOrdering Facility: [facility] Address: [address] [place], [place] [address] Performed By: #### 5 7021-8, 4536-7 ####[facility] LABIA [id number] [place] [address] [place] Immature granulocytes/100 WBC (Bld) 0.7 % Normal [facility] Comment on above: Order Comment: Speci men Type: BLOOD SPECIMENOrdering Facility: [facility] Address: [address] [place], [place] [address] Performed By: #### 5 7021-8, 4536-7 ####[facility] LABCLIA [id number] [place] [address] [place] Lymphocytes (Bld) [#/Vol] 2.56 10*3/uL Normal 1.00-4.00 [facility] Comment on above: Order Comment: Speci men Type: BLOOD SPECIMENOrdering Facility: [facility] Address: [address] [place], [place] [address] Performed By: #### 5 7021-8, 7 ####[facility] LABCLIA [id number] [address] [place] Lymphocytes/100 WBC (Bld) 27.9 % Normal [facility] Comment on above: Order Comment: Speci men Type: BLOOD SPECIMENOrdering Facility: [facility] Address: [address] [place], [place] [address] Performed By: #### 5 7021-8, 7 ####[facility] LABCLIA [id number] [place] [address] [place] MCH (RBC) [Entitic mass] 30.3 pg Normal 26.0-34.0 [facility] Comment on above: Order Comment: Speci men Type: BLOOD SPECIMENOrdering Facility: [facility] Address: [address] [place], [place] [address] Performed By: #### 5 7021-8, 7 ####[facility] LABCLIA [id number] [place] [address] [place] MCHC (RBC) [Mass/Vol] 34.3 g/dL Normal 30.5-36.0 [facility] Comment on above: Order Comment: Speci men Type: BLOOD SPECIMENOrdering Facility: [facility] Address: [address] [place], [place] [address] Performed By: #### 5 7021-8, 7 ####[facility] LABCLIA [id number] [place] [address] [place] MCV (RBC) [Entitic vol] 88.4 fL Normal 80.0-100.0 [facility] Comment on above: Order Comment: Speci men Type: BLOOD SPECIMENOrdering Facility: [facility] Address: [address] [place] [address] Performed By: #### 5 7021-8, 4537-7 ####[facility] LABCLIA [id number] [place] [address] [place] Monocytes (Bld) [#/Vol] 0.70 10*3/uL Normal <0.87 [facility] Comment on above: Order Comment: Speci men Type: BLOOD SPECIMENOrdering Facility: [facility] Address: [address] [place] [address] Performed By: #### 5 7021-8, 4536-7 ####[facility] LABIA [id number] [place] [address] [place] Monocytes/100 WBC (Bld) 7.6 % Normal [facility] Comment on above: Order Comment: Speci men Type: BLOOD SPECIMENOrdering Facility: [facility] Address: [address] [place] [address] Performed By: #### 5 7021-8, 7-7 ####[facility] LABIA [id number] [place] [address] [place] Neutrophils (Bld) [#/Vol] 5.62 10*3/uL Normal 1.45-7.50 [facility] Comment on above: Order Comment: Speci men Type: BLOOD SPECIMENOrdering Facility: [facility] Address: [address] [place] [address] Performed By: #### 5 7021-8, 7-7 ####[facility] LABIA [id number] [place] [address] [place] Neutrophils/100 WBC (Bld) 61.1 % Normal [facility] Comment on above: Order Comment: Speci men Type: BLOOD SPECIMENOrdering Facility: [facility] Address: [address] [place] [address] Performed By: #### 5 7021-8, 4536-7 ####[facility] LABCLIA [id number] [place] [address] [place] Nucleated RBC (Bld) [#/Vol] 10*3/uL Normal <0.01 [facility] Comment on above: Order Comment: Speci men Type: BLOOD SPECIMENOrdering Facility: [facility] Address: [address] [place] [address] Performed By: #### 5 7021-8, 7 ####[facility] LABCLIA [id number] [place] [address] [place] Nucleated RBC/100 WBC (Bld) [Ratio] 0.0 /100 WBC Normal [facility] Comment on above: Order Comment: Speci men Type: BLOOD SPECIMENOrdering Facility: [facility] Address: [address] [place] [address] Performed By: #### 5 7021-8, 7 ####[facility] LABCLIA [id number] [place] [address] [place] Platelet mean volume (Bld) [Entitic vol] 11.5 fL Normal 9.0-12.7 [facility] Comment on above: Order Comment: Speci men Type: BLOOD SPECIMENOrdering Facility: [facility] Address: [address] [place] [phone] Performed By: #### 5 7021-8, 7 ####[facility] LABCLIA [id number] [place] [address] [place] Platelets (Bld) [#/Vol] 348 10*3/uL Normal 150-400 [facility] Comment on above: Order Comment: Speci men Type: BLOOD SPECIMENOrdering Facility: [facility] Address: [address] [place] [address] Performed By: #### 5 7021-8, 4537-7 ####[facility] LABCLIA [id number] [place] [address] [place] RBC (Bld) [#/Vol] 5.18 10*6/uL Normal 4.20-6.00 [facility] Comment on above: Order Comment: Speci men Type: BLOOD SPECIMENOrdering Facility: [facility] Address: [address] [place] [address] Performed By: #### 5 7021-8, 4537-7 ####[facility] LABCLIA [id number] [place] [address] [place] WBC (Bld) [#/Vol] 9.18 10*3/uL Normal 3.70-11.00 [facility] Comment on above: Order Comment: Speci men Type: BLOOD SPECIMENOrdering Facility: [facility] Address: [address] [place] [address] Performed By: #### 5 7021-8, 4537-7 ####[facility] LABCLIA [id number] [place] [address] [place] Basophils (Bld) [#/Vol] 0.07 10*3/uL <0.11 k/uL [facility] Basophils/100 WBC (Bld) 0.8 % [facility] Differential cell count method Nom (Bld) Auto [facility] Eosinophils (Bld) [#/Vol] 0.17 10*3/uL <0.46 k/uL [facility] Eosinophils/100 WBC (Bld) 1.9 % [facility] Erythrocyte distribution width (RBC) [Ratio] 11.8 % 11.5 - 15.0 % [facility] Hematocrit (Bld) [Volume fraction] 45.8 % 39.0 - 51.0 % [facility] Hemoglobin (Bld) [Mass/Vol] 15.7 g/dL 13.0 - 17.0 g/dL [facility] Immature granulocytes (Bld) [#/Vol] 0.06 10*3/uL <0.10 k/uL [facility] Immature granulocytes/100 WBC (Bld) 0.7 % [facility] Lymphocytes (Bld) [#/Vol] 2.56 10*3/uL 1.00 - 4.00 k/uL [facility] Lymphocytes/100 WBC (Bld) 27.9 % [facility] MCH (RBC) [Entitic mass] 30.3 pg 26.0 - 34.0 pg [facility] MCHC (RBC) [Mass/Vol] 34.3 g/dL 30.5 - 36.0 g/dL [facility] MCV (RBC) [Entitic vol] 88.4 fL 80.0 - 100.0 fL [facility] Monocytes (Bld) [#/Vol] 0.70 10*3/uL <0.87 k/uL [facility] Monocytes/100 WBC (Bld) 7.6 % [facility] Neutrophils (Bld) [#/Vol] 5.62 10*3/uL 1.45 - 7.50 k/uL [facility] Neutrophils/100 WBC (Bld) 61.1 % [facility] Nucleated RBC (Bld) [#/Vol] <0.01 k/uL [facility] Nucleated RBC/100 WBC (Bld) [Ratio] 0.0 /100 WBC [facility] Platelet mean volume (Bld) [Entitic vol] 11.5 fL 9.0 - 12.7 fL [facility] Platelets (Bld) [#/Vol] 348 10*3/uL 150 - 400 k/uL [facility] RBC (Bld) [#/Vol] 5.18 10*6/uL 4.20 - 6.0 0 m/uL [facility] WBC (Bld) [#/Vol] 9.18 10*3/uL 3.70 - 11. 00 k/uL [facility] CNOVon 10-30-2022 CNOV Office Visit (RHARMN ) BHAVESH CÁRDENAS ([id number]) 1975 M Date Time Provider Department 10/30/22 9:00 AM SANTANA HARRIS During your visit today, we recorded the following information about you: Temperature Pulse Blood pressure 95.6 degrees 68/minute 144/96 Santana Harris MD 10/30/2022 10:20 AM Signed ref: Shaikh Moi [address] [place] [address] I have been asked to see Bhavesh Cárdenas for Osteoarthritis by Shaikh Moi [address] [employer] [facility] [address] HPI: Back pain for most of his lef. On the right side, just above the buttocks. The past six months it is painful picking up 24 pack of water. Leg drags on R a couple of times. Has fallen a couple of times. Weiser like it lost control while walking. 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 Hands swell. Has pain worse first [...] well nourishe (more content not included)... Normal [facility] CRP SerPl-mCncon 10-30-2022 CRP [Mass/Vol] mg/L Normal <0.9 [facility] Comment on above: Order Comment: Speci men Type: BLOOD SPECIMENOrdering Facility: [facility] Address: [address] [place] [address] Performed By: #### 1 988-5, 52035-2, 67652-9 ####[facility] LABCLIA [id number] [address] OF [facility] Comprehensive metabolic 2000 panelon 10-30-2022 Albumin [Mass/Vol] 4.5 g/dL 3.9 - 4.9 g/dL [facility] ALP [Catalytic activity/Vol] 115 U/L High 38 - 113 U/L [facility] ALT [Catalytic activity/Vol] 19 U/L 10 - 54 U/L [facility] Anion gap [Moles/Vol] 14 mmol/L 9 - 18 mmol/L [facility] AST [Catalytic activity/Vol] 15 U/L 14 - 40 U/L [facility] Bilirubin [Mass/Vol] 0.5 mg/dL 0.2 - 1 .3 mg/dL [facility] Calcium [Mass/Vol] 9.5 mg/dL 8.5 - 10. 2 mg/dL [facility] Chloride [Moles/Vol] 94 mmol/L Low 97 - 10 5 mmol/L [facility] CO2 [Moles/Vol] 25 mmol/L 22 - 30 mmol/L [facility] Creatinine [Mass/Vol] 0.72 mg/dL Low 0.73 - 1.22 mg/dL [facility] Estimated Glomerular Filtration Rate 113 mL/min/1.73m >=60 mL/min/1.73m [facility] Glucose [Mass/Vol] 372 mg/dL High 74 - 99 mg/dL [facility] Potassium [Moles/Vol] 4.5 mmol/L 3.7 - 5.1 mmol/L [facility] Protein [Mass/Vol] 7.5 g/dL 6.3 - 8.0 g/dL [facility] Sodium [Moles/Vol] 133 mmol/L Low 136 - 144 mmol/L [facility] Urea nitrogen [Mass/Vol] 15 mg/dL 9 - 24 mg/dL [facility] Albumin [Mass/Vol] 4.5 g/dL Normal 3.9-4.9 [facility] Comment on above: Order Comment: Speci men Type: BLOOD SPECIMENOrdering Facility: [facility] Address: [address] [place] [address] Performed By: #### 1 988-5, 35310-5, 16213-4 ####[facility] LABCLIA [id number] [place] [address] [place] ALP [Catalytic activity/Vol] 115 U/L High 38-113 [facility] Comment on above: Order Comment: Speci men Type: BLOOD SPECIMENOrdering Facility: [facility] Address: [address] [place] [address] Performed By: #### 1 988-5, 31922-8, 68625-2 ####[facility] LABCLIA [id number] [place] [address] [place] ALT [Catalytic activity/Vol] 19 U/L Normal 10-54 [facility] Comment on above: Order Comment: Speci men Type: BLOOD SPECIMENOrdering Facility: [facility] Address: [address] [place], [place] [address] Performed By: #### 1 988-5, 96255-1, 14617-3 ####[facility] LABCLIA [id number] [place] [address] [place] Anion gap [Moles/Vol] 14 mmol/L Normal 9-18 [facility] Comment on above: Order Comment: Speci men Type: BLOOD SPECIMENOrdering Facility: [facility] Address: [address] Performed By: #### 1 988-5, , ####[facility] LABCLIA [id number] [place] [address] [place] AST [Catalytic activity/Vol] 15 U/L Normal 14-40 [facility] Comment on above: Order Comment: Speci men Type: BLOOD SPECIMENOrdering Facility: [facility] Address: [address] Performed By: #### 1 988-5, , ####[facility] LABCLIA [id number] [place] [address] [place] Bilirubin [Mass/Vol] 0.5 mg/dL Normal 0.2-1.3 [facility] Comment on above: Order Comment: Speci men Type: BLOOD SPECIMENOrdering Facility: [facility] Address: [address] [place], [place] [address] Performed By: #### 1 988-5, , ####[facility] LABCLIA [id number] [place] [address] [place] Calcium [Mass/Vol] 9.5 mg/dL Normal 8.5-10.2 [facility] Comment on above: Order Comment: Speci men Type: BLOOD SPECIMENOrdering Facility: [facility] Address: [address] Performed By: #### 1 988-5, , ####[facility] LABCLIA [id number] [place] [address] [place] Chloride [Moles/Vol] 94 mmol/L Low 97-105 [facility] Comment on above: Order Comment: Speci men Type: BLOOD SPECIMENOrdering Facility: [facility] Address: [address] [place] [address] Performed By: #### 1 988-5, , ####[facility] LABIA [id number] [place] [address] [place] CO2 [Moles/Vol] 25 mmol/L Normal 22-30 [facility] Comment on above: Order Comment: Speci men Type: BLOOD SPECIMENOrdering Facility: [facility] Address: [address] [place] [address] Performed By: #### 1 988-5, , ####[facility] LABIA [id number] [place] [address] [place] Creatinine [Mass/Vol] 0.72 mg/dL Low 0.73-1.22 [facility] Comment on above: Order Comment: Speci men Type: BLOOD SPECIMENOrdering Facility: [facility] Address: [address] [place] [address] Performed By: #### 1 988-5, , ####[facility] LABIA [id number] [address] [place] ESTIMATED GLOMERULAR FILTRATION RATE 113 mL/min/1.73m??? Normal >=60 [facility] Comment on above: Order Comment: Speci men Type: BLOOD SPECIMENOrdering Facility: [facility] Address: [address] [place] [address] Result Comment: Yola mated Glomerular Filtration Rate [...] actual GFR. Performed By: #### 1 988-5, , ####[facility] LABIA [id number] [address] [address] [place] Glucose [Mass/Vol] 372 mg/dL High 74-99 [facility] Comment on above: Order Comment: Speci men Type: BLOOD SPECIMENOrdering Facility: [facility] Address: [address] [place] [address] Result Comment: The [place] Diabetes Association (ADA) provides guidance for cutoff [...] Standards of Medical Care in Diabetes 2016, [place] [employer] Association. Diabetes Care. 2016.39(Suppl 1). Performed By: #### 1 988-5, 11648-4, 53487-7 ####[facility] LABIA [id number] [place] [address] [place] Potassium [Moles/Vol] 4.5 mmol/L Normal 3.7-5.1 [facility] Comment on above: Order Comment: Speci men Type: BLOOD SPECIMENOrdering Facility: [facility] Address: [address] [place], [place] [address] Performed By: #### 1 988-5, 05227-3, 63399-8 ####[facility] LABIA [id number] [place] [id number] [place] Protein [Mass/Vol] 7.5 g/dL Normal 6.3-8.0 [facility] Comment on above: Order Comment: Speci men Type: BLOOD SPECIMENOrdering Facility: [facility] Address: [address] [place] [address] Performed By: #### 1 988-5, 32313-8, 42317-4 ####[facility] LABIA [id number] [place] [address] [place] Sodium [Moles/Vol] 133 mmol/L Low 136-144 [facility] Comment on above: Order Comment: Speci men Type: BLOOD SPECIMENOrdering Facility: [facility] Address: [address] [place], [place] [address] Performed By: #### 1 988-5, 90460-4, 79352-7 ####[facility] LABIA [id number] [place] [address] [place] Urea nitrogen [Mass/Vol] 15 mg/dL Normal 9-24 [facility] Comment on above: Order Comment: Speci men Type: BLOOD SPECIMENOrdering Facility: [facility] Address: [address] [place] [address] Performed By: #### 1 988-5, 69290-3, 73494-2 ####[facility] [id number] [place] [address] [place] Cyclic citrullinated peptide IgG Qnon 10-30-2022 CCP ANTIBODY IGG QUALITATIVE Negative Normal Negative [facility] Comment on above: Order Comment: Speci men Type: BLOOD SPECIMENOrdering Facility: [facility] Address: [address] [place] [address] Performed By: #### 3 3935-8 ####[facility] [id number] [place] [address] [place] ESR Westergren method (Bld) [Velocity]on 10-30-2022 ESR (Bld) [Velocity] 8 mm/h Normal 0-15 [facility] Comment on above: Order Comment: Speci men Type: BLOOD SPECIMENOrdering Facility: [facility] Address: [address] [place] [address] Performed By: #### 5 7021-8, 4537-7 ####[facility] LABCLIA [id number] [address] [place] No Panel Informationon 10-30 [facility] RHEUMATOID FACTOR BLon 10-30 Rheumatoid factor Qn <16 IU/mL [facility] Rheumatoid fact SerPl-aCncon 10-30-2022 Rheumatoid factor Qn [IU]/mL Normal <16 [facility] Comment on above: Order Comment: Speci men Type: BLOOD SPECIMENOrdering Facility: [facility] Address: [address] [place] [address] Performed By: #### 1 988-5, 56689-4, 54878-9 ####[facility] LABCLIA [id number] [address] [place] Urinalysis complete panel (U )on 10-30-2022 Bilirubin Ql (U) Negative Negative [facility] Clarity (Unsp spec) Clear Clear [facility] Color (U) Light Yellow Yellow [facility] Epithelial cells LM.HPF (Urine sed) [#/Area] Few [facility] Glucose Test strip (U) [Mass/Vol] 4+ Abnormal Trace, Negative [facility] Hemoglobin Ql (U) Negative Negative, Trace [facility] Ketones Ql (U) 1+ Abnormal Trace, Negative [facility] Leukocyte esterase Test strip Ql (U) Negative Negative, 25 Onesimo/mL [facility] Nitrite Ql (U) Negative Negative [facility] pH (U) 5.5 [pH] 5.0 - 8.0 [facility] Protein (U) [Mass/Vol] Trace Trace, Negative [facility] RBC LM.HPF (Urine sed) [#/Area] 0-3 /HPF 0-3 /HPF [facility] Specific gravity (U) [Rel density] 1.041 High 1.005 - 1.030 [facility] Urobilinogen Ql (U) Negative Negative [facility] WBC LM.HPF (Urine sed) [#/Area] 0-5 /HPF 0-5 /HPF [facility] Bilirubin Ql (U) Negative Normal Negative [facility] Comment on above: Order Comment: Speci men Type: URINE SPECIMENOrdering Facility: [facility] Address: [address] Performed By: #### 2 4356-8 ####[facility] LABCLIA [id number] [place] [address] [place] Clarity (Unsp spec) Clear Normal Clear [facility] Comment on above: Order Comment: Speci men Type: URINE SPECIMENOrdering Facility: [facility] Address: [address] [place], [place] [address] Performed By: #### 2 4356-8 ####[facility] LABCLIA [id number] [place] [address] [place] Color (U) Light Yellow Normal Yellow [facility] Comment on above: Order Comment: Speci men Type: URINE SPECIMENOrdering Facility: [facility] Address: [address] [place], [place] [address] Performed By: #### 2 4356-8 ####[facility] LABCLIA [id number] [place] [address] [place] Epithelial cells LM.HPF (Urine sed) [#/Area] Few Normal [facility] Comment on above: Order Comment: Speci men Type: URINE SPECIMENOrdering Facility: [facility] Address: [address] [place], [place] [address] Performed By: #### 2 4356-8 ####[facility] LABCLIA [id number] [place] [address] [place] Glucose Test strip (U) [Mass/Vol] 4+ Abnormal Trace, Negative [facility] Comment on above: Order Comment: Speci men Type: URINE SPECIMENOrdering Facility: [facility] Address: [address] [place], [place] [address] Performed By: #### 2 4356-8 ####[facility] LABCLIA [id number] [place] [address] [place] Hemoglobin Ql (U) Negative Normal Negative, Trace [facility] Comment on above: Order Comment: Speci men Type: URINE SPECIMENOrdering Facility: [facility] Address: [address] [place] [address] Performed By: #### 2 4356-8 ####[facility] LABCLIA [id number] [place] [address] [place] [facility] Ketones Ql (U) 1+ Abnormal Trace, Negative [facility] Comment on above: Order Comment: Speci men Type: URINE SPECIMENOrdering Facility: [facility] Address: [address] [place] [address] Performed By: #### 2 4356-8 ####[facility] LABCLIA [id number] [place] [address] [place] Leukocyte esterase Test strip Ql (U) Negative Normal Negative, 25 Onesimo/mL [facility] Comment on above: Order Comment: Speci men Type: URINE SPECIMENOrdering Facility: [facility] Address: [address] [place] [address] Performed By: #### 2 4356-8 ####[facility] LABCLIA [id number] [place] [address] [place] Nitrite Ql (U) Negative Normal Negative [facility] Comment on above: Order Comment: Speci men Type: URINE SPECIMENOrdering Facility: [facility] Address: [address] [place], [place] [address] Performed By: #### 2 4356-8 ####[facility] LABCLIA [id number] [place] [address] [place] pH (U) 5.5 [pH] Normal 5.0-8.0 [facility] Comment on above: Order Comment: Speci men Type: URINE SPECIMENOrdering Facility: [facility] Address: [address] [place], [place] [address] Performed By: #### 2 4356-8 ####[facility] LABIA [id number] [place] [address] [place] Protein (U) [Mass/Vol] Trace Normal Trace, Negative [facility] Comment on above: Order Comment: Speci men Type: URINE SPECIMENOrdering Facility: [facility] Address: [address] [place] [address] Performed By: #### 2 4356-8 ####[facility] LABIA [id number] [place] [address] [place] RBC LM.HPF (Urine sed) [#/Area] 0-3 /HPF Normal 0-3 /HPF [facility] Comment on above: Order Comment: Speci men Type: URINE SPECIMENOrdering Facility: [facility] Address: [address] [place] [address] Performed By: #### 2 4356-8 ####[facility] [id number] [place] [address] [place] Specific gravity (U) [Rel density] 1.041 High 1.005-1.030 [facility] Comment on above: Order Comment: Speci men Type: URINE SPECIMENOrdering Facility: [facility] Address: [address] [place] [address] Performed By: #### 2 4356-8 ####[facility] [id number] [place] [address] [place] Urobilinogen Ql (U) Negative Normal Negative [facility] Comment on above: Order Comment: Speci men Type: URINE SPECIMENOrdering Facility: [facility] Address: [address] [place] [address] Performed By: #### 2 4356-8 ####[facility] LABIA [id number] [place] [address] [place] WBC LM.HPF (Urine sed) [#/Area] 0-5 /HPF Normal 0-5 /HPF [facility] Comment on above: Order Comment: Speci men Type: URINE SPECIMENOrdering Facility: [facility] Address: [place] [id number] Performed By: #### 2 4356-8 ####[facility] LABCLIA [id number] [place] [address] [place] XR HAND/WRIST SURVEY [...] IMPRESSION: No radiographic findings of inflammatory arthropathy. Strategy Analyst: [email or web address] Transcribe Date/Time: Oct 30 2022 10:39A Dictated by : OLAYINKA SARGENT MD This examination was interpreted and the report reviewed and electronically signed by: OLAYINKA SARGENT MD on Oct 30 2022 10:39AM EST [id number] Normal [facility] cCP IgG SerPl-aCncon 023 Cyclic citrullinated peptide IgG Qn <15 Normal <20 [facility] Comment on above: Order Comment: Speci men Type: BLOOD SPECIMENOrdering Facility: [facility] Address: [place] [id number] Performed By: #### 3 3935-8 ####[facility] LABCLIA [id number] [place] [address] [place] CNOVon 10-19-2022 [facility] BHAVESH CÁRDENAS ([id number]) 1975 M Date Time Provider Department 10/19/22 1:15 PM OLAYINKA BOYD During your visit today, we recorded the [...] LEFT Lateral (more content not included)... Normal [facility] XR hip RT min 2V(w/wo pelvis )*on 09-28-2022 XR hip RT min 2V(w/wo pelvis)* [facility] [employer] Other XR hip RT min 2V(w/wo pelvis)* [facility] [place] [employer] Other XR hip RT min 2V(w/wo pelvis)* [address] [facility] [employer] Other XR hip RT min 2V(w/wo pelvis)* [place] [address] [employer] Other XR hip RT min 2V(w/wo pelvis)* XRay Report [employer] Other XR hip RT min 2V(w/wo pelvis)* Signed [employer] Other XR hip RT min 2V(w/wo pelvis)* Patient: Bhavesh Cárdenas MR#: [id number] [employer] Other XR hip RT min 2V(w/wo pelvis)* 8398 [employer] Other XR hip RT min 2V(w/wo pelvis)* : 1975 Acct:[id number] [employer] Other XR hip RT min 2V(w/wo pelvis)* Age/Sex: 46 / M ADM Date: 09/28/22 [employer] Other XR hip RT min 2V(w/wo pelvis)* Loc: [facility] Room: Type: [facility] [employer] Other XR hip RT min 2V(w/wo pelvis)* Attending Dr: Milton Valentine II, MD [employer] Other XR hip RT min 2V(w/wo pelvis)* Copies to: Milton Valentine MD [employer] Other XR hip RT min 2V(w/wo pelvis)* Ordering Provider: Milton Valentine MD [employer] Other XR hip RT min 2V(w/wo pelvis)* Date of Service: 09/28/22 [employer] Other XR hip RT min 2V(w/wo pelvis)* XR/XR hip RT min 2V(w/wo pelvis)*: Right hip pain [employer] Other XR hip RT min 2V(w/wo pelvis)* RIGHT HIP - 2 views: [employer] Other XR hip RT min 2V(w/wo pelvis)* CLINICAL HISTORY: Right groin pain for the past 6 months. No injury. [employer] Other XR hip RT min 2V(w/wo pelvis)* COMPARISON: None [employer] Other XR hip RT min 2V(w/wo pelvis)* AP view the pelvis and and crosstable lateral views of the right hip were obtained. There is no [employer] Other XR hip RT min 2V(w/wo pelvis)* evidence of fracture or dislocation. The hip joint spaces are symmetric. No prominent hypertrophy [employer] Other XR hip RT min 2V(w/wo pelvis)* is seen. There are no significant soft tissue abnormalities. [employer] Other XR hip RT min 2V(w/wo pelvis)* XR/XR hip RT min 2V(w/wo pelvis)* [employer] Other XR hip RT min 2V(w/wo pelvis)* IMPRESSION: [employer] Other XR hip RT min 2V(w/wo pelvis)* NO ACUTE BONY FINDINGS. [employer] Other XR hip RT min 2V(w/wo pelvis)* Impression dictated by: Polina Cabrera M.D.09/28/2022 2:28 PM [employer] Other XR hip RT min 2V(w/wo pelvis)* Dictation Location: [place] [address] [employer] Other XR hip RT min 2V(w/wo pelvis)* Transcribed By: [facility] 09/28/22 [facility]8 [employer] Other XR hip RT min 2V(w/wo pelvis)* Dictated By: Polina Cabrera MD 09/28/22 [facility] [employer] Other XR hip RT min 2V(w/wo pelvis)* Signed By: [employer] Other XR hip RT min 2V(w/wo pelvis)* 09/28/22 1420 [employer] Other MRI LSPINE WO CONon 08-18-20 MRI [...] by: DIANA GUZMÁN Date: 2022-08-18 16:57 Normal [facility] XR LSPINE 2_3 VIEWSon 2021 [...] by: WASHINGTON DURAN Date: 2022-08-10 18:50 Normal [facility] Vital Signs Date Time Vital Sign Value Performing Clinician Facility 07-22-2024 15:0400 Body height 162.6 cm Denis Dunlap BOXING INSPECTOR Work Phone: [facility] 07-22-2024 15:29-0400 Body mass index (BMI) [Ratio] 40.37 kg/m2 Denis Krausetrick BOXING INSPECTOR Work Phone: [facility] 07-22-2024 15:29040 Body temperature 98.71 [degF] Denis Goldmank BOXING INSPECTOR Work Phone: [facility] 07-22-2024 15:29-0400 Body weight 106.69 kg Denis Goldmank BOXING INSPECTOR Work Phone: [facility] 07-22-2024 15:29-0400 Diastolic blood pressure 88 mm[Hg] Denis Dunlap BOXING INSPECTOR Work Phone: [facility] 07-22-2024 15:29-0400 Heart rate 75 /min Denis Dunlap BOXING INSPECTOR Work Phone: [facility] 07-22-2024 15:29-0400 Respiratory rate 18 /min Denis Dunlap BOXING INSPECTOR Work Phone: [facility] 07-22-2024 15:29-0400 SaO2% (BldA) [Mass fraction] 96 % Denis Dunlap BOXING INSPECTOR Work Phone: [facility] 07-22-2024 15:29-0400 Systolic blood pressure 140 mm[Hg] Denis Dunlap BOXING INSPECTOR Work Phone: [facility] 11-19-2023 14:55-0500 Body height 162.6 cm Shaikh Moi GREEN Work Phone: [facility] 11-19-2023 14:55-0500 Body mass index (BMI) [Ratio] 41.2 kg/m2 Shaikh Moi GREEN Work Phone: [facility] 11-19-2023 14:55-0500 Body temperature 98.4 [degF] Shaikh Moi GREEN Work Phone: [facility] 11-19-2023 14:55-0500 Body weight 108.86 kg Shaikh Moi GREEN Work Phone: [facility] 11-19-2023 14:55-0500 Diastolic blood pressure 90 mm[Hg] Shaikh Moi GREEN Work Phone: [facility] 11-19-2023 14:55-0500 Heart rate 74 /min Shaikh Moi GREEN Work Phone: [facility] 11-19-2023 14:55-0500 SaO2% (BldA) [Mass fraction] 98 % Shaikh Moi GREEN Work Phone: [facility] 11-19-2023 14:55-0500 Systolic blood pressure 140 mm[Hg] Shaikh Moi GREEN Work Phone: [facility] 09-13-2023 14:40-0500 Body height 163.83 cm Francis Barr Other [employer] Other 09-13-2023 14:40-0500 Body mass index (BMI) [Ratio] 40.39 kg/m2 Francis Cortney Other [employer] Other 09-13-2023 14:40-0500 Body weight 108.41 kg Francis Barr Other [employer] Other 08-24-2023 14:24-0500 Body temperature 98.9 [degF] MD Shaikh Prater Work Phone: [facility] 08-24-2023 14:24-0500 Diastolic blood pressure 80 mm[Hg] MD Shaikh Prater Work Phone: [facility] 08-24-2023 14:24-0500 Heart rate 84 /min MD Shaikh Prater Work Phone: [facility] 08-24-2023 14:24-0500 Respiratory rate 20 /min MD Shaikh Prater Work Phone: [facility] 08-24-2023 14:24-0500 SaO2% (BldA) [Mass fraction] 96 % MD Shaikh Prater Work Phone: [facility] 08-24-2023 14:24-0500 Systolic blood pressure 168 mm[Hg] MD Shaikh Prater Work Phone: [facility] 08-24-2023 14:22-0500 Body height 162.56 cm MD Shaikh Prater Work Phone: [facility] 08-24-2023 14:22-0500 Body weight 109.1 kg MD Shaikh Prater Work Phone: [facility] 08-02-2023 14:05-0400 Body height 163.83 cm Carmen Washington Other [employer] Other 08-02-2023 14:05-0400 Body mass index (BMI) [Ratio] 40.39 kg/m2 Carmen Washington Other [employer] Other 08-02-2023 14:05-0400 Body temperature 97.7 [degF] Carmen Washington Other [employer] Other 08-02-2023 14:05-0400 Body weight 108.41 kg Carmen Washington Other [employer] Other 08-02-2023 14:05-0400 Diastolic blood pressure 76 mm[Hg] Carmen Washington Other [employer] Other 08-02-2023 14:05-0400 Respiratory rate 18 /min Carmen Washington Other [employer] Other 08-02-2023 14:05-0400 SaO2% (BldA) [Mass fraction] 98 % Carmen Washington Other [employer] Other 08-02-2023 14:05-0400 Systolic blood pressure 120 mm[Hg] Carmen Washington Other [employer] Other 01-27-2023 10:40-0400 Body height 162.56 cm TRANSMITTER SUPERVISOR-BC Kristina Bullimore Work Phone: [facility] 01-27-2023 10:40-0400 Body temperature 97.6 [degF] TRANSMITTER SUPERVISOR-BC Kristina Bullimore Work Phone: [facility] 01-27-2023 10:40-0400 Body weight 96 kg TRANSMITTER SUPERVISOR-BC Kristina Bullimore Work Phone: [facility] 01-27-2023 10:40-0400 Diastolic blood pressure 87 mm[Hg] TRANSMITTER SUPERVISOR-BC Kristina Bullimore Work Phone: [facility] 01-27-2023 10:40-0400 Heart rate 86 /min TRANSMITTER SUPERVISOR-BC Kristina Bullimore Work Phone: [facility] 01-27-2023 10:40-0400 Respiratory rate 18 /min TRANSMITTER SUPERVISOR-BC Kristina Bullimore Work Phone: [facility] 01-27-2023 10:40-0400 SaO2% (BldA) [Mass fraction] 97 % TRANSMITTER SUPERVISOR-BC Kristina Bullimore Work Phone: [facility] 01-27-2023 10:40-0400 Systolic blood pressure 143 mm[Hg] TRANSMITTER SUPERVISOR-BC Kristina Bullimore Work Phone: [facility] 11-24-2022 10:01-0500 Body temperature 98.2 [degF] [facility] Main Work Phone: [facility] 11-24-2022 10:01-0500 Diastolic blood pressure 94 mm[Hg] [facility] Main Work Phone: [facility] 11-24-2022 10:01-0500 Heart rate 89 /min [facility] Work Phone: [facility] 11-24-2022 10:01-0500 Respiratory rate 18 /min [facility] Work Phone: [facility] 11-24-2022 10:01-0500 SaO2% (BldA) [Mass fraction] 97 % [facility] Main Work Phone: [facility] 11-24-2022 10:01-0500 Systolic blood pressure 140 mm[Hg] Spine Main Work Phone: [facility] 11-15-2022 14:10-0500 Diastolic blood pressure 87 mm[Hg] Kb Tankha DO Work Phone: [facility] 11-15-2022 14:10-0500 Heart rate 90 /min Kb Tankha DO Work Phone: [facility] 11-15-2022 14:10-0500 Respiratory rate 18 /min Kb Tankha DO Work Phone: [facility] 11-15-2022 14:10-0500 SaO2% (BldA) [Mass fraction] 96 % Kb Tankha DO Work Phone: [facility] 11-15-2022 14:10-0500 Systolic blood pressure 121 mm[Hg] Kb Tankha DO Work Phone: [facility] 10-30-2022 09:31-0500 Body temperature 95.59 [degF] Santana Harris MD Work Phone: [facility] 10-30-2022 09:31-0500 Diastolic blood pressure 96 mm[Hg] Santana Harris MD Work Phone: [facility] 10-30-2022 09:31-0500 Heart rate 68 /min Santana Harris MD Work Phone: [facility] 10-30-2022 09:31-0500 Systolic blood pressure 144 mm[Hg] Santana Harris MD Work Phone: [facility] 10-19-2022 13:04-0500 Body height 162.6 cm Olayinka Boyd PA-C Work Phone: [facility] 10-19-2022 13:04-0500 Body weight 92.99 kg Olayinka Boyd PA-C Work Phone: [facility] 10-19-2022 13:04-0500 Diastolic blood pressure 75 mm[Hg] Olayinka Boyd PA-C Work Phone: [facility] 10-19-2022 13:04-0500 Heart rate 85 /min Olayinka Boyd PA-C Work Phone: [facility] 10-19-2022 13:04-0500 SaO2% (BldA) [Mass fraction] 97 % Olayinka Boyd PA-C Work Phone: [facility] 10-19-2022 13:04-0500 Systolic blood pressure 135 mm[Hg] Olayinka GEORGE-Tere Work Phone: [facility] 09-28-2022 12:30-0500 Body height 163.83 cm Milton Bynumle II Other [employer] Other 09-28-2022 12:30-0500 Body mass index (BMI) [Ratio] 34.47 kg/m2 Milton Denver II Other [employer] Other 09-28-2022 12:30-0500 Body weight 92.53 kg Milton Serge II Other [employer] Other 09-26-2022 11:00-0500 Body height 163.83 cm Francis Barr Other [employer] Other 09-26-2022 11:00-0500 Body mass index (BMI) [Ratio] 34.47 kg/m2 Francis Barr Other [employer] Other 09-26-2022 11:00-0500 Body weight 92.53 kg Francis Barr Other [employer] Other 07-20-2022 10:45-0400 Body height 163.83 cm Nahid Olexa Other [employer] Other 07-20-2022 10:45-0400 Body mass index (BMI) [Ratio] 36.5 kg/m2 Nahid Gu Other [employer] Other 07-20-2022 10:45-0400 Body weight 97.98 kg Nahid Gu Other [employer] Other Encounters Encounter Date Encounter Type Care Provider Facility Start: 08-26-2024 End: 08-26-2024 ambulatory DENIS DUNLAP Not Available Start: 08-26-2024 End: 08-26-2024 Clinisync Result Encounter Denis Dunlap BOXING INSPECTOR Work Phone: [facility] Unsolicited Start: 08-26-2024 End: 08-26-2024 Clinisync Result Encounter Denis Dunlap BOXING INSPECTOR Work Phone: [facility] External [facility] Unsolicited Start: 08-21-2024 End: 08-21-2024 Orders Only Denis Dunlap BOXING INSPECTOR Work Phone: [facility] Comment on above: Anemia, unspecified type (Primary Dx) Start: 08-19-2024 End: 08-19-2024 Clinisync Result Encounter Denis Dunlap BOXING INSPECTOR Work Phone: [facility] External [facility] Unsolicited Start: 08-19-2024 End: 08-19-2024 Clinisync Result Encounter Denis Dunlap BOXING INSPECTOR Work Phone: [facility] External [facility] Unsolicited Start: 08-18-2024 End: 08-18-2024 Orders Only Denis Dunlap BOXING INSPECTOR Work Phone: [facility] Comment on above: Type 2 diabetes donis itus without complication, without long- term current use of insulin ([facility]) Start: 08-06-2024 End: 08-06-2024 Refill Denis Dunlap BOXING INSPECTOR Work Phone: [facility] Comment on above: Moderate persistent asthma without complication (CMS/HCC) Start: 08-04-2024 End: 08-05-2024 Refill Chiara Dillon MA [facility] Comment on above: Moderate persistent asthma without complication (CMS/HCC) Type 2 diabetes donis itus without complication, with long-term current use of insulin (CMS/HCC); Uncontrolled type 2 diabetes mellitus with hyperglycemia (CMS/HCC); Moderate persistent asthma without complication (CMS/HCC) Start: 07-22-2024 End: 07-22-2024 Office outpatient visit 15 minutes Denis Dunlap BOXING INSPECTOR Work Phone: [facility] Comment on above: Moderate persistent asthma [...] of 40.0 to 44.9 in adult (CMS/HCC) Start: 07-22-2024 End: 07-22-2024 ambulatory DENIS DUNLAP Not Available Start: 07-22-2024 End: 07-22-2024 Bamboo flowsheet Denis Krausetrick BOXING INSPECTOR Work Phone: [facility] Start: 07-22-2024 End: 07-22-2024 Bamboo flowsheet Denis Dunlap BOXING INSPECTOR Work Phone: [facility] Start: 07-21-2024 End: 07-28-2024 Refill Gali Chatterjee [facility] Comment on above: Chronic neck and vick k pain; Primary hypertension (CMS/HCC) Start: 07-15-2024 End: 07-15-2024 Orders Only Denis Krausetrick BOXING INSPECTOR Work Phone: [facility] Comment on above: Chronic pain syndrom e (Primary Dx); RLS (restless legs syndrome) Start: 07-08-2024 End: 07-14-2024 Refgabriella Cárdenas MD Work Phone: [facility] Comment on above: Metabolic syndrome X (Primary Dx); Uncontrolled type 2 diabetes mellitus with hyperglycemia (CMS/HCC); Class 3 severe obesity due to excess calories with serious comorbidity and body mass index (BMI) of 40.0 to 44.9 in adult (CMS/HCC) Uncontrolled type 2 diabetes mellitus with hyperglycemia (CMS/HCC) Start: 06-26-2024 End: 06-26-2024 ambulatory DENIS ALCALAPATRICK Not Available Start: 06-11-2024 End: 06-11-2024 ambulatory ANNIE BRISCOE Not Available Start: 05-27-2024 End: 05-27-2024 ambulatory DENIS DUNLAP Not Available Start: 04-21-2024 End: 04-21-2024 ambulatory MEYER FAWWAD Not Available Start: 04-16-2024 ambulatory ANANT SPANN [facility] Start: 03-06-2024 End: 03-06-2024 ambulatory MEYER FAWWAD Not Available Start: 03-05-2024 ambulatory BHAVESH JAMES [facility] Start: 03-05-2024 Encounter for other general examination BHAVESH [facility] Start: 02-19-2024 End: 02-19-2024 ambulatory [facility] Start: 02-19-2024 End: 02-19-2024 ambulatory [facility] Start: 01-22-2024 End: 01-22-2024 ambulatory MEYER FAWWAD Not Available Start: 12-17-2023 End: 12-17-2023 ambulatory MEYER FAWWAD Not Available Start: 11-30-2023 End: 11-30-2023 ambulatory [facility] Start: 11-21-2023 End: 11-21-2023 ambulatory [facility] Start: 11-19-2023 End: 11-19-2023 ambulatory MEYER FAWWAD Not Available Start: 11-19-2023 End: 11-19-2023 Office outpatient visit 25 minutes Shaikh Moi GREEN Work Phone: [facility] Comment on above: Uncontrolled type 2 diabetes mellitus with hyperglycemia (CMS/HCC) (Primary Dx); Chronic neck and back pain; Primary hypertension (CMS/HCC); Low back pain of thoracolumbar region with sciatica Start: 11-19-2023 Alia flowsheet Shaikh Moi GREEN Work Phone: [facility] Start: 11-19-2023 Bamdafneo flowsheet Shaikh Moi GREEN Work Phone: [facility] Start: 11-15-2023 Orders Only Shaikh Moi GREEN Work Phone: [facility] Comment on above: Metabolic syndrome X (Primary Dx); Pure hypertriglyceridemia (CMS/HCC) Start: 11-08-2023 Orders Only Shaikh Moi GREEN Work Phone: [facility] Comment on above: Moderate persistent asthma without complication (CMS/HCC) (Primary Dx) Start: 11-05-2023 End: 11-05-2023 ambulatory [facility] Start: 10-29-2023 End: 10-29-2023 ambulatory Francis Barr Other [employer] Other Start: 10-29-2023 Telephone encounter Francis Barr [facility] Neurosurgery Start: 10-16-2023 End: 10-16-2023 ambulatory SHAIKH MOI Not Available Start: 09-24-2023 End: 09-24-2023 ambulatory Francis Barr Other [employer] Other Start: 09-24-2023 Telephone encounter Francis Barr [facility] Start: 09-13-2023 End: 09-13-2023 ambulatory Francis Barr Other [employer] Other Start: 09-13-2023 Office outpatient vi sit 15 minutes Francis Barr [facility] Neurosurgery Start: 08-24-2023 End: 08-24-2023 Emergency department patient visit Shaikh Moi Facility:[facility] Start: 08-24-2023 End: 08-24-2023 Emergency department patient visit MD Shaikh Prater Work Phone: [facility]-Emergency Room Work Phone: Start: 08-02-2023 End: 08-02-2023 ambulatory Carmen Washington Other [facility] [employer] Other Start: 08-02-2023 Office outpatient vi sit 15 minutes Carmen [place] [facility] Start: 07-13-2023 End: 07-13-2023 ambulatory Shaikh Moi Facility:[facility] Start: 07-13-2023 End: 07-13-2023 Patient encounter procedure MD Shaikh Prater Work Phone: [facility]-Physical Therapy [place] Start: 07-04-2023 Refill Kb Olivo Work Phone: Neurology Pain Comment on above: Refill Request (Traz odone Rx); Refill Request; Refill Request Start: 06-21-2023 End: 06-21-2023 ambulatory Tracy Wu Facility:[facility] Start: 06-21-2023 End: 06-21-2023 ambulatory MD Shaikh Prater Work Phone: [facility] Work Phone: Start: 06-21-2023 End: 06-21-2023 Patient encounter procedure MD Shaikh Prater Work Phone: [facility]-MRI Main [place] Work Phone: Start: 05-21-2023 End: 05-22-2023 ambulatory Terri Abrams MD Facility:[facility] Start: 05-16-2023 End: 05-16-2023 ambulatory Shaikh Moi Facility:[facility] Start: 05-16-2023 End: 05-16-2023 ambulatory MD Shaikh Prater Work Phone: [facility] Work Phone: Start: 05-16-2023 End: 05-16-2023 Patient encounter procedure MD Shaikh Prater Work Phone: [facility] Main [place] Work Phone: Start: 04-16-2023 Refill Lori Woody [...] Start: 02-13-2023 End: 02-13-2023 ambulatory KB TANKHA Facility:[facility] Start: 02-09-2023 Telephone encounter Kb Tank yates DO Work Phone: Pain Recovery Comment on above: Patient Question Start: 02-06-2023 ambulatory Kb Tankha D O Work Phone: Neurology Pain Comment on above: need advice Start: 01-27-2023 End: 01-27-2023 Emergency department patient visit Shaikh Moi Facility:[facility] Start: 01-27-2023 End: 01-27-2023 Emergency department patient visit TRANSMITTER SUPERVISOR-BC Kristina Delgado Work Phone: [facility]-Emergency Room Work Phone: Start: 01-24-2023 End: 01-24-2023 ambulatory KB LORENZO Facility:[facility] Start: 12-28-2022 End: 12-28-2022 [facility] [place] Castellanos Therapist Work Phone: Pain [...] tion schedule Start: 11-24-2022 ambulatory KB LORENZO Facility:[facility] Start: 11-24-2022 End: 11-24-2022 Patient encounter procedure Sp[facility] Med Procedure Main Work Phone: [facility] [place] Comment on above: APPOINTMENT CANCELLE D (Primary Dx) Start: 11-15-2022 End: 11-15-2022 ambulatory OLAYINKA BOYD Facility:[facility] Start: 11-15-2022 End: 11-15-2022 Patient encounter procedure Kb Lorenzo DO Work Phone: Neurology Pain Comment on above: Chronic pain syndrom e (Primary Dx); Chronic bilateral low back pain without sciatica; Disturbance of sleep pattern associated with pain; Lumbar spondylosis; Sacroiliitis (HCC) Start: 10-30-2022 End: 10-31-2022 ambulatory SANTANA HARRIS Facility:[facility] Start: 10-30-2022 End: 10-30-2022 Subsequent hospital [...] End: 10-23-[address] ERICK ARGUETA . Facility:[facility] Start: 10-19-2022 End: 10-19-2022 ambulatory OLAYINKA BOYD Facility:[facility] Start: 10-19-2022 End: 10-19-2022 Patient encounter procedure Olayinka Boyd PA-C Work Phone: Spine Medicine Comment on above: Chronic bilateral lo w back pain without sciatica (Primary Dx) Start: 10-16-2022 End: 10-16-2022 ambulatory Milton Valentine II Other [employer] Other Start: 10-16-2022 Telephone encounter Milton Valentine II [facility] Start: 09-28-2022 FQHC visit new patient Milton velazquez II [facility] Start: 09-28-2022 End: 09-28-2022 ambulatory MD Carmen Wheatley Work Phone: [facility] Work Phone: Start: 09-28-2022 End: 09-28-2022 Patient encounter procedure MD Carmen Wheatley Work Phone: [facility] Start: 09-26-2022 End: 09-26-2022 ambulatory Francis Barr Other [employer] Other Start: 09-26-2022 Office outpatient ne w 30 minutes Francis Barr [facility] Neurosurgery Start: 08-18-2022 End: 08-19-2022 ambulatory SHAIKH Ana PRATER Facility:[facility] Start: 08-14-2022 End: 08-15-2022 ambulatory MEYER H FAWWAD Facility:[facility] Start: 08-10-2022 End: 08-11-2022 ambulatory SHAIKH Ana PRATER Facility:[facility] Start: 07-20-2022 End: 07-20-2022 ambulatory Nahid Gu Other [employer] Other Start: 07-20-2022 Office outpatient ne w 30 minutes Nahid Gu [facility] Start: 07-13-2022 End: 07-13-2022 ambulatory ARCELIA JOE . Facility: Procedures Date Procedure Procedure Detail Performing Clinician Start: 08-26-2024 METRO IRON AND TIBC Homa charli Krausetrick BOXING INSPECTOR Work Phone: Start: 08-19-2024 ALL CBC WITH AUTO DIFF Denis Krausetrick BOXING INSPECTOR Work Phone: Start: 08-19-2024 [facility] CMP (CMP) (FOR R [facility] USE) Denis Krausetrick BOXING INSPECTOR Work Phone: Start: 08-19-2024 MLR HEMOGLOBIN A1C Brit holley Dunlap BOXING INSPECTOR Work Phone: Start: 08-24-2023 CT of lumbar spine without contrast MD Shaikh Prater Work Phone: Start: 06-21-2023 MR lumbar spine wo con MD Shaikh Prater Work Phone: Start: 05-16-2023 MR thoracic spine wo con MD Shaikh Prater Work Phone: Start: 05-16-2023 MRI of cervical spin e without contrast MD Shaikh Prater Work Phone: Start: 01-27-2023 X-ray of lumbar spin e, four or more views TRANSMITTER SUPERVISOR-BC Kristina Trungimore Work Phone: Start: 11-24-2022 Gluc bld gluc mntr d ev cleared fda spec home use [facility] Provider Start: 10-30-2022 Joint survey single view 2 or more joints Santana Harris MD Work Phone: Start: 09-28-2022 Plain X-ray of right hip MD Carmen Wheatley Work Phone: Plan of Treatment Date Care Activity Detail Author Start: 10-30-2025 DIABETES SCREEN DIABETES SCREEN [facility] Start: 10-30-2025 Diabetes Screening Diabetes Screening [facility] Start: 09-07-2025 Screening for malignant neoplasm of colon [facility] Start: 06-27-2025 Urine screening for protein Diabetes: Urine Protein Screening [facility] Start: 06-10-2025 End: 06-10-2025 Patient encounter procedure 06/10/2025 3:00 PM EDT Office Visit [facility] [address] [place] [address] Annie Briscoe PA [address] [place] [address] [facility] Start: 02-27-2025 Glaucoma screening Diabetes: Retinopathy Screening [facility] Start: 11-26-2024 End: 11-26-2024 Patient encounter procedure 11/26/2024 8:30 AM EST Office Visit [facility] [address] [place] [id number] Denis Dunlap, SUSIE [address] [place] [phone] [facility] Start: 11-12-2024 Urine screening for protein Diabetes: Urine Protein Screening [facility] Start: 08-26-2024 End: 08-26-2024 Patient encounter procedure 08/26/2024 2:30 PM EST Office Visit [facility] [address] [place] [phone] Denis Dunlap, BOXING INSPECTOR [address] [place] [phone] [facility] Start: 08-21-2024 End: 08-21-2025 Cobalamin (Vitamin B12) [Mass/volume] in Serum or Plasma Vitamin B12 Lab Routine Anemia, unspecified type Expected: 08/21/2024 (Approximate), Expires: 08/21/2025 [facility] Work Phone: Comment on above: Expected: 08/21/2024 (Approximate), Expi res: 08/21/2025 Start: 08-21-2024 End: 08-21-2025 Ferritin [Mass/volume] in Serum or Plasma Ferritin Lab Routine Anemia, unspecified type Expected: 08/21/2024 (Approximate), Expires: 08/21/2025 [facility] Comment on above: Expected: 08/21/2024 (Approximate), Expi res: 08/21/2025 Start: 08-21-2024 End: 08-21-2025 Iron + transferrin + TIBC Iron + transferrin + TIBC Lab Routine Anemia, unspecified type Expected: 08/21/2024 (Approximate), Expires: 08/21/2025 [facility] Comment on above: Expected: 08/21/2024 (Approximate), Expi res: 08/21/2025 Start: 08-21-2024 End: 08-21-2025 Measurement of occult blood in single stool specimen Occult blood x 1, stool Lab Routine Anemia, unspecified type Expected: 08/21/2024 (Approximate), Expires: 08/21/2025 [facility] Comment on above: Expected: 08/21/2024 (Approximate), Expi res: 08/21/2025 Start: 07-22-2024 End: 07-22-2024 Patient encounter procedure [facility] Comment on above: Arrived Start: 07-22-2024 End: 07-22-2025 Lipid 1996 panel - Serum or Plasma Lipid panel Lab Routine Mixed hyperlipidemia (CMS/HCC) Expected: 07/22/2024 (Approximate), Expires: 07/22/2025 [facility] Comment on above: Expected: 07/22/2024 (Approximate), Expi res: 07/22/2025 Start: 07-22-2024 End: 07-22-2025 TSH W/REFLEX TO FT4 TSH W/REFLEX TO FT4 Lab Routine Mixed hyperlipidemia (CMS/HCC) Expected: 07/22/2024 (Approximate), Expires: 07/22/2025 [facility] Work Phone: Comment on above: Expected: 07/22/2024 (Approximate), Expi res: 07/22/2025 Start: 05-12-2024 Hemoglobin A1c measurement Diabetes: Hemoglobin A1C [facility] Start: 02-16-2024 DIABETES SCREEN DIABETES SCREEN [facility] Start: 12-17-2023 End: 12-17-2023 Patient encounter procedure 12/17/2023 2:30 PM EDT Office Visit [facility] [address] [place] [phone] Shaikh Prater MD [address] [place] [phone] [facility] Start: 11-19-2023 End: 11-19-2023 Patient encounter procedure 11/19/2023 2:45 PM EST Office Visit [facility] [address] [place] [phone] Shaikh Prater MD [address] [place] [phone] [facility] Start: 11-15-2023 End: 11-15-2024 Lipid 1996 panel - Serum or Plasma Lipid panel Lab Routine Metabolic syndrome X Pure hypertriglyceridemia (CMS/HCC) Expected: 11/15/2023 (Approximate), Expires: 11/15/2024 [facility] Work Phone: Comment on above: Expected: 11/15/2023 (Approximate), Expi res: 11/15/2024 Start: 10-08-2023 Hemoglobin A1c measurement Diabetes: Hemoglobin A1C [facility] Start: 06-21-2023 MR lumbar spine wo con MR lumbar spine wo con [facility] Start: 06-21-2023 MR Lumbar spine WO contrast [facility] Start: 06-08-2023 Influenza vaccination [facility] Start: 10-30-2022 End: 12-30-2022 MIKAYLA BY IFA WITH REFLEX [facility] Work Phone: Comment on above: Expected: 10/30/2022, Expires: Start: 10-30-2022 End: 12-30-2022 Cyclic citrullinated peptide IgG Ab [Units/volume] in Serum or Plasma [facility] Work Phone: Comment on above: Expected: 10/30/2022, Expires: 3 Start: 10-30-2022 End: 12-30-2022 Erythrocyte sedimentation rate [facility] Work Phone: Comment on above: Expected: 10/30/2022, Expires: 3 Start: 10-08-2022 DEPRESSION ASSESSMENT DEPRESSION ASSESSMENT [facility] Start: 06-08-2022 Influenza vaccination INFLUENZA (#1) [facility] Start: 12-14-2021 Urine screening for protein Diabetes: Urine Protein Screening [facility] Start: 04-08-2021 COVID-19 VACCINE (3 - Booster for Pfizer series) COVID-19 VACCINE (3 - Booster for Pfizer series) [facility] Start: 04-08-2021 COVID-19 VACCINE (3 - Pfizer series) COVID-19 VACCINE (3 - Pfizer series) [facility] Start: 02-11-2021 COVID-19 VACCINE (2 - Pfizer series) COVID-19 VACCINE (2 - Pfizer series) [facility] Start: 01-04-2020 Urine microalbumin profile [facility] Start: 2018 COLOGUARD (FIT-DNA) COLOGUARD (FIT-DNA) [facility] Start: 2018 Colonoscopy COLONOSCOPY [facility] Start: 2018 COLORECTAL CANCER SCREENING COLORECTAL CANCER SCREENING [facility] Start: [address] COLONOGRAPHY [facility] Start: 2018 FECAL OCCULT BLOOD FECAL OCCULT BLOOD [facility] Start: 2018 SIGMOIDOSCOPY SIGMOIDOSCOPY [facility] Start: 01-04-2010 Urine microalbumin profile DTAP,TDAP,TD (1 - Tdap) [facility] Start: 2008 Lipid 1996 panel - Serum or Plasma Lipid Screening [facility] Start: 2008 LIPID SCREEN LIPID SCREEN [facility] Start: 1992 Urine microalbumin profile DTAP,TDAP,TD (1 - Tdap) [facility] Start: 1991 HEPATITIS C SCREENING HEPATITIS C SCREENING [facility] Start: 1991 HIV SCREENING HIV SCREENING [facility] Start: 1973 HEPATITIS B (1 of 3 - 3-dose series) HEPATITIS B (1 of 3 - 3-dose series) [facility] Start: 1973 Hepatitis B Vaccine (1 of 3 - 3-dose series) Hepatitis B Vaccine (1 of 3 - 3-dose series) [facility] Start: 1973 Screening for malignant neoplasm of colon [facility] Patient Education [facility] Work Phone: Patient referral [facility] Work Phone: SPINE INTERVENTION PROCEDURE SPINE INTERVENTION PROCEDURE Procedures Routine Sacroiliitis (HCC) Ordered: 11/15/2022 [facility] Work Phone: Comment on above: Ordered: 11/15/2022 [facility] Immunizations Immunization Date Immunization Notes Care Provider [facility] 05-15-2024 influenza, seasonal, injectable Shakeel Vargas MA [facility] 07-13-2023 SARS-COV-2 (COVID-19 ) vaccine, mRNA, spike protein, LNP, PF, 50 mcg/0.5 mL Shaikh Moi GREEN Work Phone: [facility] 06-27-2023 Influenza, injectabl e, Madin Ingrid Canine Kidney, preservative free, quadrivalent Shaikh Moi GREEN Work Phone: [facility] 02-11-2021 COVID-19 original vaccine, age 12+ yr, monovalent (PFIZER-BIONTECH - PURPLE TOP) Santana Harris MD Work Phone: [facility] 01-21-2021 COVID-19 original vaccine, age 12+ yr, monovalent (PFIZER-BIONTECH - PURPLE TOP) Santana Harris MD Work Phone: [facility] 07-07-2020 influenza, injectabl e, quadrivalent, preservative free Santana Harris MD Work Phone: [facility] 07-07-2020 influenza virus vacc ine, unspecified formulation Kb Lorenzo DO Work Phone: [facility] 09-29-2019 influenza, injectabl e, quadrivalent, contains preservative Shaikh Moi GREEN Work Phone: [facility] 08-13-2019 influenza, injectabl e, quadrivalent, contains preservative Shaikh Moi GREEN Work Phone: [facility] 08-24-2017 influenza, injectabl e, quadrivalent, preservative free Santana Harris MD Work Phone: [facility] 07-07-2016 influenza, injectabl e, quadrivalent, preservative free Santana Harris MD Work Phone: [facility] 07-02-2015 influenza, injectabl e, quadrivalent, preservative free Santana Harris MD Work Phone: [facility] 07-02-2015 influenza, seasonal, injectable, preservative free Shaikh Moi GREEN Work Phone: [facility] 08-05-2014 influenza, seasonal, injectable, preservative free Santana Harris MD Work Phone: [facility] 07-18-2013 influenza, seasonal, injectable, preservative free Santana Harris MD Work Phone: [facility] 07-18-2013 seasonal influenza, intradermal, preservative free Shaikh Moi GREEN Work Phone: [facility] 07-05-2012 influenza, seasonal, injectable, preservative free Shaikh Moi GREEN Work Phone: [facility] 09-04-2011 influenza virus vacc ine, whole virus Shaikh Moi GREEN Work Phone: [facility] 07-07-2010 influenza virus vacc ine, whole virus Shaikh Moi GREEN Work Phone: [facility] 01-03-2010 diphtheria, tetanus toxoids and pertussis vaccine Shaikh Moi GREEN Work Phone: [facility] 01-03-2010 tetanus and diphther ia toxoids, adsorbed, preservative free, for adult use (5 Lf of tetanus toxoid and 2 Lf of diphtheria toxoid) Santana Harris MD Work Phone: [facility] 01-03-2010 tetanus toxoid, redu los diphtheria toxoid, and acellular pertussis vaccine, adsorbed Santana Harris MD Work Phone: [facility] Payers Date Payer Category Payer Medicaid [id number] 2.1 [id number] 2023 Self-pay [id number] 2022 Private Health Insurance [id number] 2022 Medicaid [id number] 1973 Unknown [id number] 2.16.840.1.607182.3.579.2.593 1973 Unknown [id number] 2.16.840.1.445138.3.579.2.593 1973 Unknown [id number] 2.16.840.1.499869.3.579.2.593 1973 Unknown [id number] 2.16.840.1.060718.3.579.2.593 1973 Unknown [id number] 2.16.840.1.464945.3.579.2.593 1973 Unknown [id number] 2.16.840.1.542061.3.579.2.593 1973 Unknown [id number] 2.16.840.1.293538.3.579.2.593 1973 Unknown [id number] 2.16.840.1.824885.3.579.2.196 1973 Unknown [id number] 2.16.840.1.221498.3.579.2.1258 1973 Unknown [id number] 2.16.840.1.452763.3.579.2.1258 1973 Unknown [id number] 2.16.840.1.291498.3.579.2.1258 1973 Unknown [id number] 2.16.840.1.276926.3.579.2.1258 1973 Unknown [id number] 2.16.840.1.516406.3.579.2.1258 1973 Unknown [id number] 2.16.840.1.767064.3.579.2.1258 1973 Unknown [id number] 2.16.840.1.286675.3.579.2.1258 1973 Unknown [id number] 2.16.840.1.996625.3.579.2.1258 1973 Unknown [id number] 2.16.840.1.771781.3.579.2.1258 1973 Unknown [id number] 2.16.840.1.901260.3.579.2.1258 1973 Unknown [id number] 2.16.840.1.560121.3.579.2.9 1959 Medicaid [id number] MMO [id number] Unknown [place] BC/BS [id number] Unknown [id number] 2.16.840.1.450671.3.579.2.531 Unknown [id number] 2.16840.1.974728.3.579.2.531 Unknown [id number] 2840.1.498760.3.579.2.531 Unknown [id number] 2840.1.487631.3.579.2.531 Unknown [id number] 2..840.1.456306.3.579.2.531 Social History Date Type Detail Facility Unknown if ever smoked [employer] Other Start: 11-15-2022 End: 06-26-2024 Sex Assigned At [facility] Start: 1975 Sex Assigned At Male F [facility] Start: 10-19-2022 End: 11-19-2023 Tobacco smoking status [facility] Never smoked tobacco [facility] Start: 10-19-2022 End: 06-26-2024 Tobacco use and exposure Smokeless tobacco non-user [facility] Start: 1975 Sex Assigned At Not on file [facility] Start: 01-27-2023 End: 06-26-2024 Tobacco smoking status IDIS Ex-smoker (finding) [facility] Start: 11-15-2022 End: 06-26-2024 History of Social function [facility] Adult Depression Screening Assessment 2 [facility] Start: 10-16-2023 End: 11-19-2023 Alcohol [...] of tobacco use Passive smoker [facility] Procedure Code Equipment Code Equipment Origin al Text Equipment Identifier Dates Use as instructed [id number] Start: 11-19-2023 End: 11-18-2024 Clinical Notes 08-08-2021 to 08-18-2024 Denis Dunlap NP - 08/18/2024 1:59 PM ESTTelephone Encounter - Chiara Dillon MA - 08/04/2024 9:54 AM EDTTelephone Encounter - Chiara Dillon MA - 08/04/2024 9:54 AM EDTPatient Instructions Note Date & Type Note Facility 08-18-2024 History of Presen t illness Narrative Having hypoglycemic episodes X1 week. Did not call office. Is here today, BG levels are in the 50's today. Discontinue lantus at this time,. Advised patient Stop taking Lantus. Decreased Metformin to once daily. If Blood glucose levels are below 150 upon awakening, DO NOT take morning dose of metformin. Patient provided with protein and carbohydrate in office. Here until blood glucose levels returned <75 documented in this encounter [facility] 08-04-2024 Telephone encounter Note Pt needs a refill for his Symbicort. He also states he needs a new script for his Freestyle liv 2 but not a sensor, he needs a new transmitter. REAL:07/22/2024 NOV:08/26/2024 [facility] 08-04-2024 Miscellaneous Notes Pt needs a refill for his Symbicort. He also states he needs a new script for his Freestyle liv 2 but not a sensor, he needs a new transmitter. REAL:07/22/2024 NOV:08/26/2024 documented in this encounter [facility] 07-28-2024 History of Presen t illness Narrative Associated Problem(s): Uncontrolled type 2 diabetes mellitus with hyperglycemia ([facility]) Is currently taking Mounjaro 5mg [...] excess calories with serious comorbidity in adult ([facility]) Currently on Mounjaro 2.5mg Increased [...] Problem List Items Addressed This Visit Hyperlipidemia ([facility]) Lipid panel reviewed with patient. Triglycerides extremely elevated. Pt declines initiating statin therapy at this time. Relevant Orders TSH W/REFLEX TO FT4 Lipid panel Moderate persistent asthma without complication ([facility]) - Primary Currently taking Symbicort. Reports needing to use rescue inhlaer 2-3 times per day recently. Feels asthma symptoms are not well controlled at this time. Will try adding Airsupra- ICS/NALLELY combo or (Fluticasone if insurance denies) Continue Symbicort as directed. Type 2 diabetes mellitus without complication ([facility]) Relevant Medications Tirzepatide (Mounjaro) 5 MG/0.5ML solution auto-injector Uncontrolled type 2 diabetes mellitus with hyperglycemia (CMS/HCC) Is currently taking Mounjaro 5mg Metformin 1,000mg [...] (Mounjaro) 5 MG/0.5ML solution auto-injector Primary hypertension ([facility]/HCC) Currently taking Is taking Amlodipine 5mg PO [...] excess calories with serious comorbidity in adult ([facility]) Currently on Mounjaro 2.5mg Increased [...] and back pain documented in this encounter [facility] 07-28-2024 Telephone encounter Note Patient said when he was here last week he asked for this prescription (pregabalin) to be refilled and it still hasn't been and now he is out. He uses [email or web address] for his pharmacy. [facility] 07-28-2024 Miscellaneous Notes Patient said when he was here last week he asked for this prescription (pregabalin) to be refilled and it still hasn't been and now he is out. He uses [email or web address] for his pharmacy. documented in this encounter [facility] 07-22-2024 Instructions Denis Dunlap NP - 07/22/2024 3:30 PM EDT FASTING labs ordered. Nothing to eat or drink for 12 hours prior to blood draw. Water and black coffee ok. documented in this encounter [facility] 07-10-2024 Telephone encounter Note Pt called [facility] pharmacy never received his order for the Lantus 40 units. Could you resend?? I spoke with pharmacy and they confirmed they never received the script. [facility] 07-10-2024 Miscellaneous Notes Pt called [facility] pharmacy never received his order for the Lantus 40 units. Could you resend?? I spoke with pharmacy and they confirmed they never received the script. Attempted to return Pts call, Spoke to pharmacy yesterday, he needs to call his insurance. He also would like a refill on his Oxycodone REAL:06/26/2024 NOV:07/22/2024 documented in this encounter [facility] 07-10-2024 Telephone encounter Note Attempted to return Pts call, Spoke to pharmacy yesterday, he needs to call his insurance. He also would like a refill on his Oxycodone REAL:06/26/2024 NOV:07/22/2024 [facility] 07-09-2024 Telephone encounter Note Spoke to pharmacy they stated it was not a refill issue, but a prior authorization issue and we need to contact the insurance company. [facility] 07-09-2024 Miscellaneous Notes Spoke to pharmacy they stated it was not a refill issue, but a prior authorization issue and we need to contact the insurance company. documented in this encounter [facility] 04-16-2024 [place] [address] Referral Source: Dr. Mckay, [facility] Neurosurgery CC: Chief Complaint Patient presents [...] has been seen by pain management at [place] and at [facility] in the past where he went through PT, RFAs, epidural injections with no relief. He saw Dr. Mckay who referred him here for evaluation for [...] 2 Pain Interventions: Other (Comment) Per Dr. Mckay's note on 02/18: He had also been evaluated in [facility] neurosurgery clinic by Dunia Schmidt in November 2021 for a second opinion [...] most recently seen pain management at the [facility] in 2022. Has had previous imaging studies of his cervical, thoracic, lumbar spine as well as EMG of his bilateral upper and lower extremities. Notes that these were completed at [facility] Neurology in [place] around May or June 2023. Review of [...] Procedure Laterality Date (more content not included)... [facility] 03-05-2024 Note This is a 48 y/o mar ried for 30 yrs father of 2, son 30 and dtr 25 who lives in [place] the country. He lives with his . 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 He is waiting to get his final determination. 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 They have a dog and a cat. Who referred you for this procedure? Dr Mckay Why were you referred for this procedure? [...] brother who is a medical doctor in [place]. He has a very good support network he says What treatments have you tried for your pain? He has had radio ablation at L1,L5, epidural block in 2021 and that didn't work. He has had steroid shots that didn't work. He went to the [facility] for epidural black and that [...] stimulators? He has googled stuff from the [facility]. He has read the pamphlets that he [...] have alcoholism PSY (more content not included)... [facility] 02-19-2024 Note Neurosurgery Clinic Note Chief Complaint: Chronic pain syndrome. Interval History: Bhavesh Cárdenas is a 48 y.o. year-old male who presents in kind referral from Dr. Barr with neurosurgery in [place] for evaluation of chronic pain primarily involving [...] intervention. He had also been evaluated in [facility] neurosurgery clinic by Dunia Schmidt in November 2021 for a second opinion [...] most recently seen pain management at the [facility] in 2022. Notes that he previously worked as an gun profiler, though states he is no longer able to work because of his symptoms. Has had previous imaging studies of his cervical, thoracic, lumbar spine as well as EMG of his bilateral upper and lower extremities. Notes that these were completed at [facility] Neurology in [place] around May or June 2023. Review of [...] excess calories with serious comorbidity in adult ([facility]) Encounter for monitoring opioid maintenance therapy Hyperlipidemia Hypersomnia Low back pain of thoracolumbar region with sciatica Lumbar radiculopathy Metabolic syndrome X Moderate persistent asthma without complication Polyarthritis Primary hypertension Restless legs syndrome Strain of lumbar region Type 2 diabetes mellitus without complication ([facility]) Uncontrolled type 2 diabetes mellitus with hyperglycemia ([facility]) Past Medical History: Past Medical History: Diagnosis Date Asthma Diabetes mellitus ([facility]) Osteoarthritis Restless leg syndrome Past Surgical History: Past Surgical History: Procedure Laterality Date KNEE SURGERY x 2, left Medications: Current Outpatient Medications Medication Instructions albuterol 90 mcg/actuation inhaler INHALE 2 PUFFS BY MOUTH EVERY 4 HOURS NEEDED FOR WHEEZING amLODIPine (NORVASC) 5 mg, oral, Every morning BD Ultra-Fine Mini Pen Needle 31 gauge x 3/16 needle Daily, as directed [employer] Liv 2 Sensor kit APPLY 1 SENSOR [...] DAYS oxyCODONE ( (more content not included)... [facility] 11-21-2023 Note SUBJECTIVE: Chief complaint: Referral for back pain. History of present illness: Consultation referred from neurosurgeon Dr. Barr at [facility] Neurosurgery for back pain. 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 Has had previous imaging studies of his cervical, thoracic, lumbar spine as well as EMG of his bilateral upper and lower extremities. Notes that these were completed at [facility] Neurology in [place] around May or June 2023. Did previously [...] data recorded. Accompanied (more content not included)... [facility] 11-19-2023 History of Presen t illness [...] type 2 diabetes mellitus with hyperglycemia (CMS/HCC) Most recent labs: hemoglobin A1C 11 Average [...] follow-ups on file. documented in this encounter [facility] 09-13-2023 Evaluation note Encounter Date Diagnosis [...] him. He was treated with pain management [place] years ago did not like it he [...] M16.11) Sep, Lumbar spondylosis (ICD-10 - M47.816) [employer] Other 10-26-2023 Evaluation note* Encounter Date Diagnosis [...] rash near eyes, eye pain, vision changes. [employer] Other 09-27-2023 Miscellaneous Notes* Telephone Encounter - [...] Rose Marie Acosta RN documented in this encounterGrand [facility] Miscellaneous Notes* Telephone Encounter - Lori Woody RN - 04/16/2023 11:19 AM EDT Refill request sent to the provider documented in this encounterGrand [facility]06[facility]23 Miscellaneous Notes* Telephone Encounter - Lori Woody RN - 03/28/2023 2:37 PM EDT Weight entered in Epic documented in this encounterGrand [facility]06-20[facility]2023 Miscellaneous Notes* Telephone Encounter - Lorna Anaya - 03/27/2023 1:25 PM EDT Patient's weight check faxed over for office to review; indexed into patient's chart under scanned documents. documented in this encounterGrand [facility]05-15[facility]23 Miscellaneous Notes* Telephone Encounter - Lorna Anaya - 02/19/2023 10:53 AM EDT Patient phones stating his back cracked on and pain increased, he found harder to walk d/tpain. Patient also reports yesterday right leg was not moving and caused patient to fall, please advise. documented in this encounterGrand Lake [facility]05-09-2023 NoteHNO ID: [id number] Author: Kb Lorenzo, DO Service: ? Author Type: Physician Type: Progress Notes Filed: 02/26/2023 10:57 AM Note Text: THE [facility] Neurological [place] February 13, 2023 I have communicated my name and active licensure. The patient's identity and physical location were verified at the time of this visit. Either the patient or their legal retention representative has been informed of the risks [...] which included preparing to see the patient, [id number] patient care, completing clinical documentation, obtaining and/or reviewing separately obtained history, counseling and educating the patient/family/caregiver, and ordering medications, tests, or procedures. Kb Lorenzo DO Important Patient Information: 1. To schedule Pain Recovery appointments or post-injection office visits, please call: [phone] 2. The nursing staff and medical assistants are a part of your pain recovery team and will be handling your phone calls and inquiries. 3. Your study results and treatment plan will be discussed during a follow-up appointment. If you do not have a follow-up appointment and wish to discuss any issues directly with me, please call: [phone] to set-up an appointment. 4. MyChart is best used for refill requests or yes or no questions. Anything more complicated will likely require a follow-up appointment that you can schedule by [phone]. 5. It is the practice of the [...] will be contacted once there is an opening.[facility]05-05-2023 Miscellaneous Notes* Telephone Encounter - Lori Woody RN - 02/09/2023 3:42 PM EDT Pt instructed to follow up with PCP. documented in this encounterGrand [facility]05-05-2023 Miscellaneous Notes* Telephone Encounter - Lorna Anaya - 02/09/2023 3:27 PM EDT Patient phones again to follow up on advice concerning last message, please advise. documented in this encounterGrand Lake [facility]03-23-2023 NoteHNO ID: [id number] Author: Washington Castellanos, Therapist Service: ? Author Type: Therapist Type: Progress Notes Filed: 01/01/2023 2:00 PM Note Text: THE [facility] Psychological Evaluation December 28, 2022 Bhavesh Hayskena [facility]#: [id number] I have communicated my name and active licensure. The patient's identity and physical location were verified at the time of this visit. Either the patient or their legal retention representative has been informed of the risks and benefits of -- and alternatives to -- treatment through virtual visit and consents to proceed with the session remotely. Patient location: At home in [place], [place]. This 47 year old unemployed (since April 21, 2022) male lives with his , daughter, son-in-law and their dog in [facility]. He has applied for disability. 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 He was referred by Kb Lorenzo DO for psychological evaluation in the context of chronic pain. This consultation was shared with the referral source via the [facility] electronic medical record. He believes [...] times. Has fallen a couple of times. Weiser like it lost control while walking. Has [...] ORAL) [employer] (more content not included)... [facility]03-23-2023 History of Present illness Narrative* Washington Castellanos, Therapist - 12/28/2022 1:59 PM EDT THE [facility] Psychological Evaluation December 28, 2022 Bhavesh Cárdenas [facility]#: [id number] I have communicated my name and active licensure. The patient's identity and physical location wereverified at the time of this visit. Either the patient or their legal retention representative has been informed of the risks and benefits of -- and alternatives to -- treatment through virtual visit and consents to proceed with the session remotely. Patient location: At home in [place], [place]. This 47 year old unemployed (since April 21, 2022) male lives with his , daughter, son-in-law and their dog in [facility]. He has applied for disability. 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 He was referred by Kb Lorenzo DO for psychological evaluation in the context of chronic pain. This consultation was shared with the referral source via the [facility] electronic medical record. He believes [...] times. Has fallen a couple of times. Weiser like it lost control while walking. Has [...] stories; playing with and watching the dog ETHNIC/ZOROASTRIANISM BACKGROUND: Does your ethnic or scientologist background require special considerations? No Does spirituality play a role in your life? No Do you have any language/communication needs: No Primary language: Japanese Preferred language for Health Care Information: Japanese Family involvement: his family is appropriate/helpful and [...] medical marijuana, but it's too expensive in [place] , most recently inDecember 2021. 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 There was no history of difficulties with authorities. He has been 29 years and has one boy and one girl . 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 He would like to complete the [employer] and at that time make a decision about the Virtual Intensive Outpatietn Program. Additional Information: 1. Patient given providers contact information 2. Emergency access procedures reviewed and patient verbalized understanding -patient provided with information on 24 hour Suicide/Crisis Hotline 2-544-167-TALK (7575) in case of suicidal thoughts or hopelessness -patient instructed to go immediately to local ER in cases of emergency such as suicidal thoughts with plan or increased severity of symptoms -call 911 in case of life threatening emergency Prognosis is good. BRIAN Aiken Start time: 2:00 PM Stop time: 3:00 PM documented in this encounterGrand Lake [facility]03-10-2023 Miscellaneous Notes* Telephone Encounter - Lori Woody RN - 12/15/2022 3:42 PM EST Called pt for pre inj phone call. Left VM with office number to call for instructions and questionsor concerns. documented in this encounterGrand [facility]03-07-2023 Miscellaneous Notes* Telephone Encounter - Lori Woody RN - 12/12/2022 8:32 AM EST Diagnosis letter sent to patient through . documented in this encounterGrand Lake [facility]02-21-2023 Miscellaneous Notes* Telephone Encounter - Lori Woody RN - 11/28/2022 11:09 AM EST Pt asked to send details on letter requirements. documented in this encounterGrand Lake [facility]02-17-2023 NoteHNO ID: [id number] Author: Gillian Vega RN Service: ? Author Type: Registered Nurse Type: Progress Notes Filed: 12/26/2022 10:12 AM Note Text: Procedure cancelled due to blood sugar of 430. Required BS less than 250. Patient voiced understanding and will reschedule. All in agreement.[facility]02-17-2023 NoteHNO ID: [id number] Author: Patricia Hylton Service: ? Author Type: ? Type: Progress Notes Filed: 12/26/2022 10:12 AM Note Text: [facility] of Present illness Narrative* Gillian Vega RN - 11/24/2022 10:53 AM EST Procedure cancelled due to blood sugar of 430. Required BS less than 250. Patient voiced understanding and will reschedule. All in agreement. * Patricia Hylton - 11/24/2022 10:00 AM EST cancelled documented in this encounterGrand [facility] Nurse Note* Gillian Vega RN - 11/24/2022 10:02 AM EST PATIENT NAME: Bhavesh Cárdenas 1975 47 year old Current medications and allergies reviewed with patient in visit navigator: Yes Baseline vital signs and pain assessment entered in activity in visit navigator: Yes [employer] 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 Menstrual Date: NA Undergone Injection in the past: Yes, [place], [place] Time since last PO intake: this [...] medications): No Klonopin requested: yes Signed by: Glilian Vega RN November 24, 2022 10:02 AM documented in this encounterGrand [facility] NoteHNO ID: [id number] Author: Kb Lorenzo, DO Service: ? Author Type: Physician Type: Progress Notes Filed: 12/09/2022 11:53 AM Note Text: [facility] [place] November 15, 2022 This is a in-person visit. 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 He was referred by Olayinka Boyd [id number] [facility] [address]. Chief complaint: Center of back pain that [...] doctor and was seen by rheumatology. 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 He started physical therapy In 2020 the patient was sent to a L5-S1 for radiofrequency ablation that were not helpful. The diagnostic blocks was done as well. This was done at [place] [facility]. The patient tried to tolerate [...] patient was seen by [facility] and not deemed an appropriate [...] Denies CHF: Denies Uncontrolled HTN: Denies Recent ID: Denies Arrythmias: Denies Afib: Denies Hyperthyroid: Denies [...] normal chest excursion HEART (more content not included)...[facility] History of Present illness Narrative* Kb Lorenzo, - 11/15/2022 1:55 PM EST [facility] [place] November 15, 2022 This is a in-person visit. 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 He was referred by Olayinka Boyd [id number] [address] [facility] [address]. Chief complaint: Center of back pain that [...] doctor and was seen by rheumatology. 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 He started physical therapy In 2020 the patient was sent to a L5-S1 for radiofrequency ablation that were not helpful. The diagnostic blocks was done as well. This was doneat [place] [facility]. The patient tried to tolerate [...] patient was [facility] and not deemed an appropriate [...] Denies CHF: Denies Uncontrolled HTN: Denies Recent ID: Denies Arrythmias: Denies Afib: Denies Hyperthyroid: Denies [...] Never Substance use: He never used tobacco. @cap@ denies current and past significant alcohol use and @cap@ describes current alcohol consumption as 3-4 shots [...] which included preparing to see the patient, [id number] patient care, completing clinical documentation, obtaining and/or reviewing separately obtained history, performing a medically appropriate examination, counseling and educating the pat ient/family/caregiver, and ordering medications, tests, or procedures. Important Patient Information: 1. To schedule Pain Recovery appointments or post-injection office visits, please call: [phone] 2. The nursing staff and medical assistants are an integral part of your pain recovery team and will be handling your phone calls and inquiries. 3. Your study results and treatment plan will be discussed during a follow-up appointment. If you do not have a follow-up appointment and wish to discuss any issues directly with me, please call: [phone] to set-up an appointment. 4. MyChart is best used for refill requests or yes or no questions. Anything more complicated will likely require a follow-up appointment that you can schedule by [phone]. 5. It is the practice of the [...] there is an opening. documented in this encounterGrand [facility]01-23-2023 NoteHNO ID: [id number] Author: RT Tyson(R) Service: ? Author Type: [...] BY: RT Tyson(R) October 30, 2022 10:35 [facility]01-23-2023 NoteHNO ID: [id number] Author: Santana Harris MD Service: ? Author Type: Physician Type: Progress Notes Filed: 10/30/2022 10:20 AM Note Text: ref: Shaikh Moi [address] [place] [address] I have been asked to see Bhavesh Teer Cárdenas for Osteoarthritis by Shaikh Moi [address] [facility] [address] HPI: Back pain for most of his lef. On the right side, just above the buttocks. The past six months it is painful picking up 24 pack of water. Leg drags on R a couple of times. Has fallen a couple of times. Weiser like it lost control while walking. 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 Hands swell. Has pain worse first [...] to light. Extraocular movem (more content not included)...[facility] 10-30-[facility] History of Present illness Narrative* RT Tyson(R) - 10/30/2022 10:15 AM EST Radiology Service [...] 30, 2022 10:35 AM documented in this encounterGrand [facility]01-[facility]23 History of Present illness Narrative* Santana Harris MD - 10/30/2022 9:00 AM EST ref: Shaikh Moi [address] [place] [address] I have been asked to see Bhavesh Cárdenas for Osteoarthritis by Shaikh Moi [address] [place] [address] HPI: Back pain for most of his lef. On the right side, just above the buttocks. The past six months it is painful picking up 24 pack of water. Leg drags on R a couple of times. Has fallen a couple of times. Weiser like it lost control while walking. 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 Hands swell. Has pain worse first [...] results of this consult [place] [address] via the electronic medical record documented in this encounterGrand [facility]01-12-2023 NoteHNO ID: [id number] Author: Olayinka Boyd PA-C Service: ? 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 Fontanez, to discuss further treatment options including possibly injections. [employer] Other 12-20-2022 Evaluation note* Encounter Date Diagnosis [...] of right sacroiliac joint (ICD-10 - M46.1) [employer] Other 10-13-2022 Evaluation note* Encounter Date Diagnosis Assessment Notes Treatment Notes Treatment Clinical Notes Jul, Patellofemoral arthritis of right knee (ICD-10 - M17.11) Jul, Acute pain of right knee (ICD-10 - M25.561) Jul, Internal derangement of right knee (ICD-10 - M23.91) [facility] xrays and MRI reviewed with patient. We [...] new MRI for evaluation for meniscal tear. [employer] Other 10-06-2022 NotePROCEDURE: XR KNEE RT 4V or > COMPARISON: 11/16/2021 HISTORY: Pain in right knee FINDINGS: BONES:No fracture, acute abnormality, or significant arthropathy. SOFT TISSUES:Negative. No visible soft tissue swelling. EFFUSION:None visible. OTHER: Negative. IMPRESSION: No acute abnormality Electronically authenticated by: WASHINGTON DURAN Date: 2022-07-13 14:[address] [place], [place] [address]75511-01-2021 History general Narrative - Reported* Type Description Date Medical History restless leg syndrome Medical History seasonal allergies Medical History DM Surgical History left knee surgery x 2 Surgical History L1-L5 ablation 08/2021 Hospitalization History No know Hospitalization history [employer] Other Evaluation noteNo assessment information available [facility] Work Phone: Evalutwgdf note* Diagnosis Chronic bilateral low back pain without sciatica- Primary documented in this encounter [facility] note* Diagnosis Localized, primary osteoarthritis of hand, unspecified laterality- Primary Arthritis Arthropathy, unspecified, site unspecified Chronic right-sided low back pain without sciatica documented in this encounter [facility] note* Diagnosis Localized, primary osteoarthritis of hand, unspecified laterality Arthritis Arthropathy, unspecified, site unspecified Chronic right-sided low back pain without sciatica [facility] noteNo InformationNort [employer] Other Evznvjxkmz note* Diagnosis Chronic pain syndrome- Primary Chronic bilateral low back pain without sciatica Disturbance of sleep pattern associated with pain Lumbar spondylosis Lumbosacral spondylosis without myelopathy Sacroiliitis (HCC) Sacroiliitis, not elsewhere classified Sacroiliitis (HCC) Sacroiliitis, not elsewhere classified documented in this encounter [facility] note* Diagnosis APPOINTMENT CANCELLED- Primary Sacroiliitis (HCC) Sacroiliitis, not elsewhere classified documented in this encounter [facility]* Diagnosis Pain disorder associated with psychological factors and medical condition- Primary Other pain disorders related to psychological factors Chronic pain syndrome Sacroiliitis (HCC) Sacroiliitis, not elsewhere classified documented in this encounter [facility]* Diagnosis Moderate persistent asthma without complication (CMS/HCC)- Primary documented in this encounter [facility]* Diagnosis Metabolic syndrome X- Primary Dysmetabolic Syndrome X Pure hypertriglyceridemia ([facility]/HCC) documented in this encounter [facility]* Diagnosis Uncontrolled type 2 diabetes mellitus with hyperglycemia ([facility]/HCC)- Primary Chronic neck and back pain Primary hypertension ([facility]) Unspecified essential hypertension Low back pain of thoracolumbar region with sciatica documented in this encounter [facility]* Diagnosis Metabolic syndrome X- Primary Dysmetabolic Syndrome X Uncontrolled type 2 diabetes mellitus with hyperglycemia ([facility]) Class 3 severe obesity due to excess calories with serious comorbidity and body mass index (BMI) of 40.0 to 44.9 in adult ([facility]) documented in this encounter [facility]* Diagnosis Uncontrolled type 2 diabetes mellitus with hyperglycemia ([facility]/HCC) documented in this encounter [facility]* Diagnosis Chronic pain syndrome- Primary RLS (restless legs syndrome) Restless legs syndrome (RLS) documented in this encounter [facility]* Diagnosis Type 2 diabetes mellitus without complication, without long-term current use of insulin ([facility])- Primary RLS (restless legs syndrome) Restless legs syndrome (RLS) Hyperlipidemia, unspecified hyperlipidemia type ([facility]/HCC) Primary hypertension ([facility]/HCC) Unspecified essential hypertension Moderate persistent asthma without complication ([facility]/HCC) Class 3 severe obesity due to excess calories with serious comorbidity and body mass index (BMI) of 40.0 to 44.9 in adult ([facility]) Uncontrolled type 2 diabetes mellitus with hyperglycemia ([facility]/HCC)- Primary Chronic neck and back pain Primary hypertension ([facility]/HCC) Unspecified essential hypertension Low back pain of thoracolumbar region with sciatica Moderate persistent asthma without complication (CMS/HCC)- Primary Primary hypertension ([facility]/HCC) Unspecified essential hypertension Uncontrolled type 2 diabetes mellitus with hyperglycemia ([facility]/HCC) Low back pain of thoracolumbar region [...] essential hypertension Moderate persistent asthma without complication (CMS/[facility]) Class 3 severe obesity due to excess calories with serious comorbidity and body mass index (BMI) of 40.0 to 44.9 in adult ([facility]) Mixed hyperlipidemia (CMS/HCC) Mixed hyperlipidemia Encounter for monitoring opioid maintenance therapy Chronic neck and back pain Chronic pain syndrome Type 2 diabetes mellitus without complication, with long-term current use of insulin ([facility])- Primary Uncontrolled type 2 diabetes mellitus with hyperglycemia (CMS/HCC) Lumbar radiculopathy Thoracic or lumbosacral neuritis or radiculitis, unspecified Chronic neck and back pain Primary hypertension (CMS/HCC) Unspecified essential hypertension Moderate persistent asthma without complication ([facility])- Primary Chronic neck and back pain Primary hypertension (CMS/HCC) Unspecified essential hypertension Type 2 diabetes mellitus without complication, with long-term current use of insulin ([facility]/HCC) Uncontrolled type 2 diabetes mellitus with hyperglycemia (CMS/HCC) Mixed hyperlipidemia ([facility]/HCC) Mixed hyperlipidemia documented in this encounter [facility]* Diagnosis Type 2 diabetes mellitus without complication, without long-term current use of insulin ([facility]/HCC)- Primary RLS (restless legs syndrome) Restless legs syndrome (RLS) Hyperlipidemia, unspecified hyperlipidemia type (CMS/HCC) Primary hypertension (CMS/HCC) Unspecified essential hypertension Moderate persistent asthma without complication ([facility]/HCC) Class 3 severe obesity due to excess calories with serious comorbidity and body mass index (BMI) of 40.0 to 44.9 in adult ([facility]) Uncontrolled type 2 diabetes mellitus with hyperglycemia ([facility])- Primary Chronic neck and back pain Primary hypertension ([facility]/HCC) Unspecified essential hypertension Low back pain of thoracolumbar region with sciatica Moderate persistent asthma without complication ([facility])- Primary Primary hypertension ([facility]/HCC) Unspecified essential hypertension Uncontrolled type 2 diabetes mellitus with hyperglycemia ([facility]) Low back pain of thoracolumbar region with sciatica Type 2 diabetes mellitus without complication, with long-term current use of insulin ([facility]) Chronic neck and back pain Uncontrolled type 2 diabetes mellitus with hyperglycemia ([facility]/HCC)- Primary Primary hypertension ([facility]) Unspecified essential hypertension Chronic neck and back pain Low back pain of thoracolumbar region with sciatica Encounter for monitoring opioid maintenance therapy Uncontrolled type 2 diabetes mellitus with hyperglycemia ([facility])- Primary Periodic limb movement Periodic limb movement disorder Restless legs syndrome Restless legs syndrome (RLS) Uncontrolled type 2 diabetes mellitus with hyperglycemia ([facility])- Primary Hyperlipidemia, unspecified hyperlipidemia type ([facility]) Low back pain of thoracolumbar region with sciatica Primary hypertension ([facility]) Unspecified essential hypertension Chronic neck and back pain Uncontrolled type 2 diabetes mellitus with hyperglycemia ([facility])- Primary Primary hypertension ([facility]) Unspecified essential hypertension Moderate persistent asthma without complication ([facility]) Class 3 severe obesity due to excess calories with serious comorbidity and body mass index (BMI) of 40.0 to 44.9 in adult ([facility]) Mixed hyperlipidemia ([facility]) Mixed hyperlipidemia Encounter for monitoring opioid maintenance therapy Chronic neck and back pain Chronic pain syndrome Type 2 diabetes mellitus without complication, with long-term current use of insulin ([facility])- Primary Uncontrolled type 2 diabetes mellitus with hyperglycemia ([facility]) Lumbar radiculopathy Thoracic or lumbosacral neuritis or radiculitis, unspecified Moderate persistent asthma without complication ([facility])- Primary Chronic neck and back pain Primary hypertension ([facility]) Unspecified essential hypertension Type 2 diabetes mellitus without complication, with long-term current use of insulin ([facility]) Uncontrolled type 2 diabetes mellitus with hyperglycemia ([facility]) Mixed hyperlipidemia ([facility]) Mixed hyperlipidemia Class 3 severe obesity due to excess calories with serious comorbidity and body mass index (BMI) of 40.0 to 44.9 in adult (CMS/HCC) documented in this encounter [facility]* Diagnosis Type 2 diabetes [...] (BMI) of 40.0 to 44.9 in adult (CMS/[facility]) Uncontrolled type 2 diabetes mellitus [...] of 40.0 to 44.9 in adult (CMS/HCC) Moderate persistent asthma without complication (CMS/HCC) documented in this encounter [facility]* Diagnosis Type 2 diabetes [...] of 40.0 to 44.9 in adult (CMS/HCC) Uncontrolled type 2 diabetes mellitus with [...] essential hypertension Moderate persistent asthma without complication ([facility]) Class 3 severe obesity due to excess calories with serious comorbidity and body mass index (BMI) of 40.0 to 44.9 in adult ([facility]) Mixed hyperlipidemia ([facility]) Mixed hyperlipidemia Encounter for monitoring opioid maintenance therapy Chronic neck and back pain Chronic pain syndrome Type 2 diabetes mellitus without complication, with long-term current use of insulin ([facility])- Primary Uncontrolled type 2 diabetes mellitus with hyperglycemia ([facility]) Lumbar radiculopathy Thoracic or lumbosacral neuritis or radiculitis, unspecified Moderate persistent asthma without complication ([facility])- Primary Chronic neck and back pain Primary hypertension ([facility]) Unspecified essential hypertension Type 2 diabetes mellitus without complication, with long-term current use of insulin ([facility]) Uncontrolled type 2 diabetes mellitus with hyperglycemia ([facility]) Mixed hyperlipidemia ([facility]) Mixed hyperlipidemia Class 3 severe obesity due to excess calories with serious comorbidity and body mass index (BMI) of 40.0 to 44.9 in adult ([facility]) Type 2 diabetes mellitus without complication, with long-term current use of insulin ([facility]) Uncontrolled type 2 diabetes mellitus with hyperglycemia ([facility]) Moderate persistent asthma without complication ([facility]) documented in this encounter [facility]* Diagnosis Type 2 diabetes mellitus without complication, without long-term current use of insulin ([facility])- Primary RLS (restless legs syndrome) Restless legs syndrome (RLS) Hyperlipidemia, unspecified hyperlipidemia type ([facility]) Primary hypertension ([facility]) Unspecified essential hypertension Moderate persistent asthma without complication ([facility]) Class 3 severe obesity due to excess calories with serious comorbidity and body mass index (BMI) of 40.0 to 44.9 in adult ([facility]) Uncontrolled type 2 diabetes mellitus with hyperglycemia ([facility])- Primary Chronic neck and back pain Primary hypertension ([facility] Unspecified essential hypertension Low back pain of thoracolumbar region with sciatica Moderate persistent asthma without complication ([facility])- Primary Primary hypertension ([facility]) Unspecified essential hypertension Uncontrolled type 2 diabetes mellitus with hyperglycemia ([facility]) Low back pain of thoracolumbar region with sciatica Type 2 diabetes mellitus without complication, with long-term current use of insulin ([facility]) Chronic neck and back pain Uncontrolled type 2 diabetes mellitus with hyperglycemia ([facility]/HCC)- Primary Primary hypertension ([facility]) Unspecified essential hypertension Chronic neck and back pain Low back pain of thoracolumbar region with sciatica Encounter for monitoring opioid maintenance therapy Uncontrolled type 2 diabetes mellitus with hyperglycemia ([facility]/HCC)- Primary Periodic limb movement Periodic limb movement disorder Restless legs syndrome Restless legs syndrome (RLS) Uncontrolled type 2 diabetes mellitus with hyperglycemia ([facility]/HCC)- Primary Hyperlipidemia, unspecified hyperlipidemia type ([facility]/HCC) Low back pain of thoracolumbar region with sciatica Primary hypertension ([facility]/HCC) Unspecified essential hypertension Chronic neck and back pain Uncontrolled type 2 diabetes mellitus with hyperglycemia ([facility]/HCC)- Primary Primary hypertension ([facility]) Unspecified essential hypertension Moderate persistent asthma without complication ([facility]) Class 3 severe obesity due to excess calories with serious comorbidity and body mass index (BMI) of 40.0 to 44.9 in adult ([facility]) Mixed hyperlipidemia ([facility]) Mixed hyperlipidemia Encounter for monitoring opioid maintenance therapy Chronic neck and back pain Chronic pain syndrome Type 2 diabetes mellitus without complication, with long-term current use of insulin ([facility])- Primary Uncontrolled type 2 diabetes mellitus with hyperglycemia ([facility]) Lumbar radiculopathy Thoracic or lumbosacral neuritis or radiculitis, unspecified Moderate persistent asthma without complication ([facility])- Primary Chronic neck and back pain Primary hypertension ([facility]) Unspecified essential hypertension Type 2 diabetes mellitus without complication, with long-term current use of insulin ([facility]) Uncontrolled type 2 diabetes mellitus with hyperglycemia ([facility]) Mixed hyperlipidemia ([facility]) Mixed hyperlipidemia Class 3 severe obesity due to excess calories with serious comorbidity and body mass index (BMI) of 40.0 to 44.9 in adult ([facility]) Moderate persistent asthma without complication ([facility]) documented in this encounter [facility] HealthcareEvaluation note* Diagnosis Type 2 diabetes mellitus without complication, without long-term current use of insulin ([facility])- Primary RLS (restless legs syndrome) Restless legs syndrome (RLS) Hyperlipidemia, unspecified hyperlipidemia type ([facility]/HCC) Primary hypertension ([facility]) Unspecified essential hypertension Moderate persistent asthma without complication ([facility]) Class 3 severe obesity due to excess calories with serious comorbidity and body mass index (BMI) of 40.0 to 44.9 in adult ([facility]) Uncontrolled type 2 diabetes mellitus with hyperglycemia ([facility]/HCC)- Primary Chronic neck and back pain Primary hypertension ([facility]/HCC) Unspecified essential hypertension Low back pain of thoracolumbar region with sciatica Moderate persistent asthma without complication (CMS/HCC)- Primary Primary hypertension (CMS/HCC) Unspecified essential hypertension Uncontrolled type 2 diabetes mellitus with hyperglycemia ([facility]) Low back pain of thoracolumbar region with sciatica Type 2 diabetes mellitus without complication, with long-term current use of insulin ([facility]) Chronic neck and back pain Uncontrolled type 2 diabetes mellitus with hyperglycemia (CMS/HCC)- Primary Primary hypertension ([facility]) Unspecified essential hypertension Chronic neck and back pain Low back pain of thoracolumbar region with sciatica Encounter for monitoring opioid maintenance therapy Uncontrolled type 2 diabetes mellitus with hyperglycemia ([facility])- Primary Periodic limb movement Periodic limb movement disorder Restless legs syndrome Restless legs syndrome (RLS) Uncontrolled type 2 diabetes mellitus with hyperglycemia ([facility])- Primary Hyperlipidemia, unspecified hyperlipidemia type ([facility]) Low back pain of thoracolumbar region with sciatica Primary hypertension ([facility]) Unspecified essential hypertension Chronic neck and back pain Uncontrolled type 2 diabetes mellitus with hyperglycemia ([facility])- Primary Primary hypertension ([facility]) Unspecified essential hypertension Moderate persistent asthma without complication ([facility]) Class 3 severe obesity due to excess calories with serious comorbidity and body mass index (BMI) of 40.0 to 44.9 in adult ([facility]) Mixed hyperlipidemia ([facility]) Mixed hyperlipidemia Encounter for monitoring opioid maintenance therapy Chronic neck and back pain Chronic pain syndrome Type 2 diabetes mellitus without complication, with long-term current use of insulin ([facility])- Primary Uncontrolled type 2 diabetes mellitus with hyperglycemia ([facility]) Lumbar radiculopathy Thoracic or lumbosacral neuritis or radiculitis, unspecified Moderate persistent asthma without complication ([facility])- Primary Chronic neck and back pain Primary hypertension ([facility]) Unspecified essential hypertension Type 2 diabetes mellitus without complication, with long-term current use of insulin ([facility]) Uncontrolled type 2 diabetes mellitus with hyperglycemia ([facility]) Mixed hyperlipidemia ([facility]) Mixed hyperlipidemia Class 3 severe obesity due to excess calories with serious comorbidity and body mass index (BMI) of 40.0 to 44.9 in adult ([facility]) Type 2 diabetes mellitus without complication, without long-term current use of insulin ([facility]) documented in this encounter [facility] HealthcareEvaluation note* Diagnosis Type 2 diabetes mellitus without complication, without long-term current use of insulin ([facility])- Primary RLS (restless legs syndrome) Restless legs syndrome (RLS) Hyperlipidemia, unspecified hyperlipidemia type ([facility]/HCC) Primary hypertension ([facility]) Unspecified essential hypertension Moderate persistent asthma without complication ([facility]) Class 3 severe obesity due to excess calories with serious comorbidity and body mass index (BMI) of 40.0 to 44.9 in adult ([facility]) Uncontrolled type 2 diabetes mellitus with hyperglycemia ([facility])- Primary Chronic neck and back pain Primary hypertension ([facility]) Unspecified essential hypertension Low back pain of thoracolumbar region with sciatica Moderate persistent asthma without complication ([facility])- Primary Primary hypertension ([facility]) Unspecified essential hypertension Uncontrolled type 2 diabetes mellitus with hyperglycemia ([facility]) Low back pain of thoracolumbar region with sciatica Type 2 diabetes mellitus without complication, with long-term current use of insulin ([facility]) Chronic neck and back pain Uncontrolled type 2 diabetes mellitus with hyperglycemia ([facility])- Primary Primary hypertension ([facility]) Unspecified essential hypertension Chronic neck and back pain Low back pain of thoracolumbar region with sciatica Encounter for monitoring opioid maintenance therapy Uncontrolled type 2 diabetes mellitus with hyperglycemia ([facility]/HCC)- Primary Periodic limb movement Periodic limb movement disorder Restless legs syndrome Restless legs syndrome (RLS) Uncontrolled type 2 diabetes mellitus with hyperglycemia ([facility])- Primary Hyperlipidemia, unspecified hyperlipidemia type ([facility]) Low back pain of thoracolumbar region with sciatica Primary hypertension ([facility]) Unspecified essential hypertension Chronic neck and back pain Uncontrolled type 2 diabetes mellitus with hyperglycemia ([facility]/HCC)- Primary Primary hypertension ([facility]) Unspecified essential hypertension Moderate persistent asthma without complication ([facility]) Class 3 severe obesity due to excess calories with serious comorbidity and body mass index (BMI) of 40.0 to 44.9 in adult ([facility]) Mixed hyperlipidemia ([facility]) Mixed hyperlipidemia Encounter for monitoring opioid maintenance therapy Chronic neck and back pain Chronic pain syndrome Type 2 diabetes mellitus without complication, with long-term current use of insulin ([facility])- Primary Uncontrolled type 2 diabetes mellitus with hyperglycemia (CMS/HCC) Lumbar radiculopathy Thoracic or lumbosacral neuritis or radiculitis, unspecified Moderate persistent asthma without complication ([facility]/HCC)- Primary Chronic neck and back pain Primary hypertension ([facility]) Unspecified essential hypertension Type 2 diabetes mellitus without complication, with long-term current use of insulin ([facility]) Uncontrolled type 2 diabetes mellitus with hyperglycemia (CMS/HCC) Mixed hyperlipidemia ([facility]) Mixed hyperlipidemia Class 3 severe obesity due to excess calories with serious comorbidity and body mass index (BMI) of 40.0 to 44.9 in adult ([facility]) Anemia, unspecified type- Primary Type 2 diabetes mellitus without complication, without long-term current use of insulin ([facility])- Primary Iron deficiency anemia secondary to inadequate dietary iron intake Primary hypertension ([facility]) Unspecified essential hypertension documented in this encounter [facility] general Narrative - Reported* Type Description Date Medical History restless leg syndrome Medical History seasonal allergies Medical History DM Medical History Arthritis Medical History asthma Medical History diabetes mallitus Surgical History left knee surgery x 2 Surgical History L1-L5 ablation 08/2021 Hospitalization History No know Hospitalization history [employer] Other History general Narrative - Reported* Type Description Date Medical History restless leg syndrome Medical History seasonal allergies Medical History DM Medical History Arthritis Medical History asthma Medical History diabetes mallitus Surgical History left knee surgery x 2 Surgical History L1-L5 ablation 08/2021 Hospitalization History No Hospitalization histo ry information [employer] Other Hisoidt general Narrative - Reported* Type Description Date Medical History restless leg syndrome Medical History seasonal allergies Medical History DM Medical History Arthritis Medical History asthma Medical History diabetes mallitus Surgical History left knee surgery x 2 Surgical History L1-L5 ablation 08/2021 Hospitalization History see above [employer] [facility] [employer] Other Hospital Discharge instructions Additional Instructions Continue your current medication May apply ice to the sore area To do stretching May use topical medicine such as IcyHot with lidocaine Bengay with lidocaine or lidocaine patch Follow-up with your back specialist Return to the ER for more severe pain weakness in your legs loss of bladder bowel control high fever or [facility] Discharge instructions Additional Instructions May apply 1-2 lidocaine patches over sores areas daily Continue your other medication Follow-up with your doctor Return to the ER for worsening pain weakness in your legs loss of bladder bowel control or [facility]: [facility] for referral (narrative)* Diagnostic Procedure Only (Routine) - Closed Specialty Diagnoses / Procedures Referred By Contac t Referred To Contact XR IMAGING Diagnoses Localized, primary osteoarthritis of hand, unspecified laterality Arthritis Chronic right-sided low back pain without sciatica Procedures XR HAND/WRIST SURVEY ARTHRITIS 1V PA BILATERAL JOINT SURVEY SINGLE VIEW 2 [place] [address] [place] [address] Xr Imaging Referral ID Status Reason Start Date Expiration Date V isits Requested Visits Authorized [id number] Closed Auto-Generate d Referral 10/30/2022 11/29/2023 1 1 [facility] for referral (narrative)* Diagnostic Procedure Only (Routine) - Closed Specialty Diagnoses / Procedures Referred By Contac t Referred To Contact XR IMAGING Diagnoses Localized, primary osteoarthritis of hand, unspecified laterality Arthritis Chronic right-sided low back pain without sciatica Procedures XR HAND/WRIST SURVEY ARTHRITIS 1V PA BILATERAL JOINT SURVEY SINGLE VIEW 2 [place] [address] [place] [address] Xr Imaging Referral ID Status Reason Start Date Expiration Date V isits Requested Visits Authorized [id number] Closed Auto-Generate d Referral 10/30/2022 11/29/2023 1 1 [facility] for visit Narrative* Outpatient Procedure (Routine) - Closed Specialty Diagnoses / Procedures Referred By Contac t Referred To Contact [facility] / SPINE Diagnoses Sacroiliitis, not elsewhere classified Injection Type - Intra-articular Sacroiliac joint injection: Bilateral CPT 13586 Procedures INJECT SI JOINT ARTHRGRPHY&/ANES/STEROI D W/JB PROCEDURE SPINE Kb Lorenzo DO [address] [place] [address] Spine [facility] [address] [place] [address] Referral ID Status Reason Start Date Expiration Date Visits Re quested Visits Authorized [id number] Closed 11/16/2022 12/05/2022 1 1 [facility] Chief Complaint and Reason for [...] 2 Lumbar spondylosis ( M47.816) Referral Organization [facility] urosurgery Referring Provider First Name Francis Referring Provider Last Name Cortney Referring Provider Specialty Neurologica l Surgery Referred Organization [facility] Referred Address [address],[place], [place],[address] Referred Provider Specialty Neurosurgery Referral Priority Routine Reason evaluate and treat f or sacroiliac and axial back pain \ Diagnosis 1 Sacro-iliac pain (M5 3.3) Referral Organization [facility] urosurger Referring Provider First Name Francis Referring Provider Last Name Cortney Referring Provider Specialty Neurologica l Surgery Referred Organization [facility] Pain [facility] [place] Referred Provider Nahid Estevez Referred Address [address] [place],[address] Referred Provider Specialty Pain Medicin e Referral Priority Routine Specialty Diagnoses / Procedures Referred By Jevon penaloza Referred To Contact Diagnoses Disturbance of sleep pattern associated with pain Procedures CONSULT TO SLEEP MEDICINE - ADULT OFFICE/OUTPATIENT [facility] 60-74 MINUTES Kb Lorenzo DO [address] [place] [address] Referral ID Status Reason Start Date Expiration Date Visits Requested Visits Authorized [id number] Authorized PCP Requested Referral 11/15/2022 11/15/2023 1 1 Specialty Diagnoses / Procedures Referred By Contac t Referred To Contact [facility] [place] Diagnoses Chronic pain syndrome Procedures [facility] TO [facility] OFFICE/OUTPATIENT [facility] 60-74 MINUTES Kb Lorenzo, DO [address] [place] [address] Referral ID Status Reason Start Date Expiration Date Visits Requested Visits Authorized [id number] Pending Review PCP Requested Referral 11/15/2022 11/15/2023 1 1 Specialty Diagnoses / Procedures Referred By Contac t Referred To Contact [facility] Diagnoses Chronic pain syndrome Procedures CONSULT TO [facility]/OUTPATIENT [facility] 60-74 MINUTES Kb Lorenzo, DO [address] [place] [address] [facility] [address] [place] [address] Referral ID Status Reason Start Date Expiration Date V isits Requested Visits Authorized [id number] Closed PCP Requested Referral 11/15/2022 11/15/2023 1 1 Specialty Diagnoses / Procedures Referred By Contac t Referred To Contact [facility] Diagnoses Chronic bilateral low back pain without sciatica Chronic pain syndrome Procedures CONSULT TO PHYSICAL THERAPY PHYSICAL THERAPY EVALUATION HIGH COMPLEX 45 MINS Kb Lorenzo, DO [address] [place] [address] [facility] [place] [address] [place] [address] Referral ID Status Reason Start Date Expiration Date Visits Requested Visits Authorized [id number] Pending Review Auto-Generat ed Referral 11/15/2022 11/15/2023 1 1 Reason 09/28/22 @ 11:30am Evaluate and Treat R Hip Arthropathy Diagnosis 1 Trochanteric bursiti s of right hip (M70.61) Referral Organization [facility] urosurgery Referring Provider First Name Francis Referring Provider Last Name Cortney Referring Provider Specialty Neurologica l Surgery Referred Organization [facility] Referred Provider Milton Valentine II Referred Address [address] [place], [place],[address] Referred Provider Specialty Orthopedic S urgery Referral Priority Routine Referral Appointment Date 2022-09-28 General Notes Almaz Larose 01:18:44 PM >Received today and sent P2P Almaz Larose 09/28/2022 02:47:43 PM >Patient has been scheduled Almaz Larose 10/04/2022 08:58:01 AM >Consult notes not locked yet Almaz Larose 10/06/2022 11:26:02 AM >Consult notes not locked yet Almaz Larose 10/10/2022 09:04:40 AM >Consult notes not locked yet Almaz Larose 10/11/2022 09:00:47 AM >Consult notes not locked yet Almaz Larose 10/12/2022 08:14:26 AM >Consult notes not locked yet Almaz Larose 10/13/2022 12:17:19 PM >Office notes not locked yet Almaz Larose 10/16/2022 10:10:49 AM >Sent telephone encounter to referring physician to let them know that the consult letter is ready for their review Specialty Diagnoses / Procedures Referred By Contac t Referred To Contact [facility] [place] Diagnoses Chronic bilateral low back pain without sciatica Procedures CONS[facility] TO [facility] OFFICE/OUTPATIENT [facility] 60-74 MINUTES Olayinka Boyd PA-C [address] [place] [id number] Referral ID Status Reason Start Date Expiration Date Visits Requested Visits Authorized [id number] Pending Review PCP Requested Referral 10/19/2022 10/19/2023 [...] 2 [place] [address] [place] [address] Xr Imaging Referral ID Status Reason Start Date Expiration Date V isits Requested Visits Authorized [id number] Closed Auto-Generate d Referral 10/30/2022 11/29/2023 1 1 Specialty Diagnoses / Procedures Referred By Contac t Referred To Contact [facility] [place] Diagnoses Chronic bilateral low back pain without sciatica Procedures CONSULT TO [place] [facility] (CHRONIC PAIN) OFFICE/OUTPATIENT [facility] 60-74 MINUTES Olayinka Boyd PA-C [address] [place] [address] Referral ID Status Reason Start Date Expiration Date Visits Requested Visits Authorized [id number] Pending Review PCP Requested Referral 10/19/2022 10/19/2023 1 1 Reason Comments pre inj phone call Reason Comments Consult Specialty Diagnoses / Procedures Referred By Contac t Referred To Contact [facility] [place] Diagnoses Chronic pain syndrome Procedures CONSULT TO [place] [facility] (CHRONIC PAIN) OFFICE/OUTPATIENT [facility] 60-74 MINUTES Kb Lorenzo DO [address] [place] [address] Referral ID Status Reason Start Date Expiration Date Visits Requested Visits Authorized [id number] Pending Review PCP Requested Referral 11/15/2022 11/15/2023 [...] Carmen Wheatley MD Primary Care Provider Active Audio/Video Technician Relationship Specialty Start Date End Date Shaikh Prater MD [address] [place] [address] PCP - General Primary Care 10/30/22 Audio/Video Technician Relationship Specialty Start Date End Date Shaikh Prater MD [address] [place] [address] PCP - General Primary Care 10/30/22 Audio/Video Technician Relationship Specialty Start Date End Date Shaikh Prater MD [facility] [place] [address] PCP - General Primary Care 10/30/22 Audio/Video Technician Relationship Specialty Start Date End Date Shaikh Prater MD [facility] [place] [address] PCP - General Primary Care 10/30/22 Audio/Video Technician Relationship Specialty Start Date End Date Shaikh Prater MD [facility] [place] [address] PCP - General Primary Care 10/30/22 Audio/Video Technician Relationship Specialty Start Date End Date Shaikh Prater MD [facility] [place] [address] PCP - General Primary Care 10/30/22 Team Status: Active Member Role Status Dates Shaikh Moi MD Primary Care Provider Active Team Status: Inactive Member Role Status Dates Kristina Delgado , TRANSMITTER SUPERVISOR- Emergency Provider Active Shaikh Moi MD Primary Care Provider Active Audio/Video Technician Relationship Specialty Start Date End Date Shaikh Prater MD [address] [place] [address] PCP - General Primary Care 10/30/22 Audio/Video Technician Relationship Specialty Start Date End Date Shaikh Prater MD [address] [place] [address] PCP - General Primary Care 10/30/22 Audio/Video Technician Relationship Specialty Start Date End Date Shaikh Prater MD [address] [place] [address] PCP - General Primary Care 10/30/22 Audio/Video Technician Relationship Specialty Start Date End Date Shaikh Prater MD [address] [place] [address] PCP - General Primary Care 10/30/22 Team Status: Inactive Member Role Status Beth Prater MD Primary Care Provider [facility] Attending Provider Active Team Status: Inactive Member Role Status Beth Prater MD Primary Care Provider Active Tracy Wu ANP- Attending Provider, Referri ng Provider Active Team Status: Inactive Member Role Status Beth Prater MD Primary Care Provider Active Kristina Delgado [facility] Emergency Provider Active Team Status: Inactive Member Role Status Beth Prater MD Primary Care Provider Active Tracy Wu APRN Attending Provider Active Audio/Video Technician Relationship Specialty Start Date End Date Shaikh Prater MD PCP - General Internal Medicine 10/08/22 Audio/Video Technician Relationship Specialty Start Date End Date Shaikh Prater MD PCP - General Internal Medicine 10/08/22 Audio/Video Technician Relationship Specialty Start Date End Date Shaikh Prater MD [address] [place] [phone] PCP - General Internal Medicine 11/19/23 Audio/Video Technician Relationship Specialty Start Date End Date Shaikh Prater MD [address] [place] [phone] PCP - General Internal Medicine 11/19/23 Audio/Video Technician Relationship Specialty Start Date End Date J Luis Cárdenas MD [address] [place] [address] PCP - General Family Medicine 05/08/24 Denis Dunlap NP [address] [place] [address] Nurse Practitioner Family Medicine 05/08/24 Audio/Video Technician Relationship Specialty Start Date End Date J Luis Cárdenas MD [address] [place] [phone] PCP - General Family Medicine 05/08/24 Denis Dunlap NP [address] [place] [address] Nurse Practitioner Family Medicine 05/08/24 Audio/Video Technician Relationship Specialty Start Date End Date J Luis Cárdenas MD [address] [place] [address] PCP - General Family Medicine 05/08/24 Denis Dunlap NP [address] [place] [address] Nurse Practitioner Family Medicine 05/08/24 Audio/Video Technician Relationship Specialty Start Date End Date J Luis Cárdenas MD [address] [place] [address] PCP - General Family Medicine 05/08/24 Denis Dunlap NP [address] [place] [address] Nurse Practitioner Family Medicine 05/08/24 Audio/Video Technician Relationship Specialty Start Date End Date J Luis Cárdenas MD [address] [place] [address] PCP - General Family Medicine 05/08/24 Denis Dunlap NP [address] [place] [address] Nurse Practitioner Family Medicine 05/08/24 Audio/Video Technician Relationship Specialty Start Date End Date J Luis Cárdenas MD [address] [place] [phone] PCP - General Family Medicine 05/08/24 07/27/24 Denis Dunlap NP [address] [place] [address] Nurse Practitioner Family Medicine 05/08/24 Audio/Video Technician Relationship Specialty Start Date End Date Unallocated, Liss MD Polly [address] [place] [address] PCP - General Family Medicine 07/28/24 Denis Dunlap NP [address] [place] [address] Nurse Practitioner Family Medicine 05/08/24 Audio/Video Technician Relationship Specialty Start Date End Date Unallocated, Kb Matias MD [address] [place] [address] PCP - General Family Medicine 07/28/24 Denis Dunlap NP [address] [place] [address] Nurse Practitioner Family Medicine 05/08/24 Audio/Video Technician Relationship Specialty Start Date End Date Unallocated, Kb Matias MD [address] [place] [address] PCP - General Family Medicine 07/28/24 Denis Dunlap NP [address] [place] [address] Nurse Practitioner Family Medicine 05/08/24 Audio/Video Technician Relationship Specialty Start Date End Date J Luis Cárdenas MD [address] [place] [address] PCP - General Family Medicine 08/07/24 Denis Dunlap NP [address] [place] [address] Nurse Practitioner Family Medicine 05/08/24 Audio/Video Technician Relationship Specialty Start Date End Date J Luis Cárdenas MD [address] [place] [address] PCP - General Family Medicine 08/07/24 Denis Dunlap NP [address] [place] [address] Nurse Practitioner Family Medicine 05/08/24 Audio/Video Technician Relationship Specialty Start Date End Date J Luis Cárdenas MD [address] [place] [address] PCP - General Family Medicine 08/07/24 Denis Dunlap NP [address] [place] [address] Nurse Practitioner Family Medicine 05/08/24 Audio/Video Technician Relationship Specialty Start Date End Date J Luis Cárdenas MD [address] [place] [address] PCP - General Family Medicine 08/07/24 Denis Dunlap NP [address] [place] [address] Nurse Practitioner Family Medicine 05/08/24 Audio/Video Technician Relationship Specialty Start Date End Date J Luis Cárdenas MD [address] [place] [phone] PCP - General Family Medicine 08/07/24 Denis Dunlap NP [address] [place] [address] Nurse Practitioner Family Medicine 05/08/24 Goals (unrecognized [...] or prosecute any alcohol or drug abuse patient.[facility] the event this information is protected by the Federal Confidentiality of Alcohol and Drug Abuse Patient Records regulations: The Federal rules restrict any use of the information to criminally investigate or prosecute any alcohol or drug abuse patient.[facility] the event this information is protected by the Federal Confidentiality of Alcohol and Drug Abuse Patient Records regulations: The Federal rules restrict any use of the information to criminally investigate or prosecute any alcohol or drug abuse patient.[facility] the event this information is protected by the Federal Confidentiality of Alcohol and Drug Abuse Patient Records regulations: The Federal rules restrict any use of the information to criminally investigate or prosecute any alcohol or drug abuse patient.[facility] the event this information is protected by the Federal Confidentiality of Alcohol and Drug Abuse Patient Records regulations: The Federal rules restrict any use of the information to criminally investigate or prosecute any alcohol or drug abuse patient.[facility] the event this information is protected by the Federal Confidentiality of Alcohol and Drug Abuse Patient Records regulations: The Federal rules restrict any use of the information to criminally investigate or prosecute any alcohol or drug abuse patient.[facility] the event this information is protected by the Federal Confidentiality of Alcohol and Drug Abuse Patient Records regulations: The Federal rules restrict any use of the information to criminally investigate or prosecute any alcohol or drug abuse patient.[facility] the event this information is protected by the Federal Confidentiality of Alcohol and Drug Abuse Patient Records regulations: The Federal rules restrict any use of the information to criminally investigate or prosecute any alcohol or drug abuse patient.[facility] the event this information is protected by the Federal Confidentiality of Alcohol and Drug Abuse Patient Records regulations: The Federal rules restrict any use of the information to criminally investigate or prosecute any alcohol or drug abuse patient.[facility] the event this information is protected by the Federal Confidentiality of Alcohol and Drug Abuse Patient Records regulations: The Federal rules restrict any use of the information to criminally investigate or prosecute any alcohol or drug abuse patient.[facility] the event this information is protected by the Federal Confidentiality of Alcohol and Drug Abuse Patient Records regulations: The Federal rules restrict any use of the information to criminally investigate or prosecute any alcohol or drug abuse patient.[facility] Hospital[facility] the event this information is protected by the Federal Confidentiality of Alcohol and Drug Abuse Patient Records regulations: The Federal rules restrict any use of the information to criminally investigate or prosecute any alcohol or drug abuse patient.[facility] Hospital[facility] the event this information is protected by the Federal Confidentiality of Alcohol and Drug Abuse Patient Records regulations: The Federal rules restrict any use of the information to criminally investigate or prosecute any alcohol or drug abuse patient.[facility] the event this information is protected by the Federal Confidentiality of Alcohol and Drug Abuse Patient Records regulations: The Federal rules restrict any use of the information to criminally investigate or prosecute any alcohol or drug abuse patient.[facility] HospitalIn the event this information is protected by the Federal Confidentiality of Alcohol and Drug Abuse Patient Records regulations: The Federal rules restrict any use of the information to criminally investigate or prosecute any alcohol or drug abuse patient.[facility] HospitalIn the event this information is protected by the Federal Confidentiality of Alcohol and Drug Abuse Patient Records regulations: The Federal rules restrict any use of the information to criminally investigate or prosecute any alcohol or drug abuse patient.[facility] (unrecognized sect ion and content) No Status Records FoundNo Status Records FoundNo Status Records FoundNo Status Records FoundNo Status Records FoundNo Status Records Found INFORMATION SOURCE (unrecogn ized section and content) DATE CREATED AUTHOR 03/16/2023 [facility] DATE CREATED AUTHOR AUTHOR'S ORGANIZ ATION 03/29/2023 [facility] DATE CREATED AUTHOR AUTHOR'S ORGANIZ ATION 05/27/2023 [facility] DATE CREATED AUTHOR AUTHOR'S ORGANIZ ATION 11/16/2023 [facility] DATE CREATED AUTHOR AUTHOR'S ORGANIZ ATION 05/30/2024 [facility] DATE CREATED AUTHOR AUTHOR'S ORGANIZ ATION 08/29/2024 [facility] EPIC FOR RECORDS PERTAINING [...] BE BASED ON THE PRIMARY CLINICAL RECORDS. [facility]. provides no warranty or guarantee of the accuracy or completeness of information in this document.
--- NOTE | 2024-08-30 10:28 | ED.BACK1 ---
HPI HPI - Back Pain/Injury General Chief Complaint: Back Pain/Injury Stated Complaint: LOWER BACK PAIN Time Seen by Provider: 08/30/24 10:23 Source: patient Mode of arrival: walk-in History of Present Illness HPI Narrative: 48-year-old male presents to the emergency department for back pain. He is complaining of low midline back pain for the past few days without any precipitating injury. 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 No weakness or numbness in his legs. He took oxycodone at home but it did not help. Related Data Home Medications ?Medication ?Instructions ?Recorded ?Confirmed albuterol sulfate 90 mcg/actuation inhalation 05/12/23 aerosol inhaler (Ventolin HFA) baclofen 20 mg tablet mg 05/12/23 dulaglutide 3 mg/0.5 mL mg subcut 05/12/23 subcutaneous pen injector (Trulicity) duloxetine 60 mg capsule,delayed mg PO 05/12/23 release glipizide 10 mg tablet, extended mg PO 05/12/23 release 24 hr lidocaine 5 % topical patch patch 05/12/23 metformin 1,000 mg tablet mg 05/12/23 mometasone-formoterol HFA 100 inhalation 05/12/23 mcg-5 mcg/actuation aerosol inhaler (Dulera) oxycodone 5 mg tablet mg 05/12/23 pregabalin 200 mg capsule mg 05/12/23 ropinirole 4 mg tablet mg 05/12/23 trazodone 100 mg tablet mg 05/12/23 Previous Rx's ?Medication ?Instructions ?Recorded cephalexin 500 mg capsule 500 mg PO TID 7 days #21 caps 07/27/23 mupirocin 2 % topical ointment 1 applic topical TID 14 days #15 07/27/23 grams methocarbamol 500 mg tablet 500 mg PO Q8H PRN pain #20 tabs 08/30/24 Allergies Allergy/AdvReac Type Severity Reaction Status Date / Time NSAIDS (Non-Steroidal Allergy Severe Anaphylaxis Verified 05/12/23 21:20 Anti-Inflamma Opioid HPI Opioid Management Most Recent Opioid Data: Last Pain Scale 4 07/27/23 12:10 07/27/23 Review of Systems ROS Narrative A ten point review of systems is negative except as noted above. PFSH PFSH Social History Smoking status: Former smoker Little interest or pleasure in doing things: not at all Feeling down, depressed, or hopeless: not at all Exam Narrative Exam Narrative: Nurses note and vital signs reviewed and patient is not hypoxic. General: The patient appears uncomfortable. Skin: Warm, dry, no pallor noted. There is no rash noted. Head: Normocephalic, atraumatic Eye: Normal conjunctiva, no drainage Ears, Nose, Mouth, and Throat: oral mucosa is moist. Nares patent. Cardiovascular: Regular Rate and Rhythm Respiratory: Patient is in no distress, no accessory muscle use, lungs are clear to auscultation, no wheezing, rales or rhonchi Back: No bruise or rash or focal area of tenderness to palpation. GI: Soft and nontender Musculoskeletal: The patient has no evidence of calf tenderness, no pitting edema, symmetrical pulses noted bilaterally Neurological: A&O, normal speech, upper and lower extremity strength intact Psychiatric: Cooperative Constitutional Vital Signs, click to edit/add: Last Vital Signs Temp 97.6 F 08/30/24 09:59 Pulse 76 08/30/24 09:59 Resp 20 08/30/24 09:59 BP 141/85 08/30/24 09:59 Pulse Ox 95 08/30/24 09:59 O2 Del Method Room Air 08/30/24 09:59 Course Vital Signs Vital signs: Vital Signs Temperature 97.6 F 08/30/24 09:59 Pulse Rate 76 08/30/24 09:59 Respiratory Rate 20 08/30/24 09:59 Blood Pressure 141/85 08/30/24 09:59 Pulse Oximetry 95 08/30/24 09:59 Oxygen Delivery Method Room Air 08/30/24 09:59 Temperature 97.6 F 08/30/24 09:59 Pulse Rate 76 08/30/24 09:59 Respiratory Rate 20 08/30/24 09:59 Blood Pressure 141/85 08/30/24 09:59 Pulse Oximetry 95 08/30/24 09:59 Oxygen Delivery Method Room Air 08/30/24 09:59 MDM - Back Pain/Injury MDM Narrative Medical decision making narrative: The patient was given IV morphine and Norflex and feels much better. He is discharged home with a prescription for methocarbamol and he will continue his oxycodone. Treatment diagnosis and follow-up were discussed with the patient. Differential Diagnosis Differential diagnosis: Likely lumbar radiculopathy, strain of lumbar region and other (Acute exacerbation of chronic back pain) Discharge Plan Discharge Chief Complaint: Back Pain/Injury Clinical Impression: Acute exacerbation of chronic low back pain Patient Disposition: Home, Self-Care Time of Disposition Decision: 10:56 Condition: Good Mode of Transportation: Private Vehicle Prescriptions / Home Meds: New methocarbamol 500 mg tablet 500 mg PO Q8H PRN (Reason: pain) Qty: 20 0RF No Action glipizide 10 mg tablet extended release 24hr PO baclofen 20 mg tablet trazodone 100 mg tablet metformin 1,000 mg tablet lidocaine 5 % adhesive patch,medicated albuterol sulfate [Ventolin HFA] 90 mcg/actuation HFA aerosol inhaler INHALATION ropinirole 4 mg tablet oxycodone 5 mg tablet duloxetine 60 mg capsule,delayed release(DR/EC) PO pregabalin 200 mg capsule Dulera 100-5 mcg/actuation HFA aerosol inhaler INHALATION Trulicity 3 mg/0.5 mL pen injector SUBCUT cephalexin 500 mg capsule 500 mg PO TID 7 Days Qty: 21 0RF mupirocin 2 % ointment 1 applic topical TID 14 Days Qty: 15 0RF Print Language: [place] Verde[place] Instructions: Acute Low Back Pain (ED) Additional Instructions: Do not take baclofen while on methocarbamol Referrals: DENIS RAMEY [Primary Care Provider] - 1 week
[2024-08-30] MEDS: MORPHINE SULFATE 4 MG/ML VIAL IV (10:43)
[2024-08-30] MEDS: ORPHENADRINE 60 MG/ 2 ML VIAL IV (10:43)
[2024-08-30 11:03] VITALS: BP 138/88; PULSE 88; O2SAT 98
== END 2024-08-30 11:04 | disposition home or self-care (01) ==
PROVIDERS: Emergency Provider Emergency Medicine
DX: M54.50 Low back pain, unspecified (principal); Z87.891 Personal history of nicotine dependence; G89.29 Other chronic pain
CPT/HCPCS: 96374; 96375; 99284; J2270; J2360

== ENCOUNTER 2025-04-17 07:20 | Outpatient (OUT) | payer MEDICARE, SELFPAY ==
--- OUTSIDE RECORDS SUMMARY | 2025-04-17 07:27 | XMS_ITS | CCD ---
Author Organization [facility] Care Team Providers Care Gate Clerk Name Role Phone Nahid Gu Unavailable MD Carmen Wheatley Primary Care Provider MD Milton Valentine II Attending Provider Unavailable Primary Care Provider UnavailShaik Nichols MDh Primary Care Provider Francis Barr Unavailable Milton Valentine II Unavailable [phone] Danny [facility] Kristina Mak Emergency Provider MD [...] H Admitting Unavailable TANKHA, KB Referring [facility] Primary Care Unavailable OLAYINKA BOYD Referring Unavailable TANKHA, KB Attending Unavailable [facility] Primary Care Unavailable SANTANA HARRIS Referring Unavailable [facility], [facility] Primary Care Unavailable SANTANA HARRIS Referring Unavailable [facility], [facility] Primary Care Unavailable SANTANA HARRIS Attending Unavailable OLAYINKA BOYD Attending Unavailable TANKHA, KB Attending Unavailable [facility] Primary Care Unavailable WASHINGTON CASTELLANOS Attending Unavailable TANKHA, KB Referring Unavailable [facility], [facility] Primary Care Unavailable TANKHA, KB Admitting Unavailable TANKHA, KB Attending [facility]available [facility] Primary Care Unavailable MD Moi [facility] Primary Care Provider [phone] LARRY [facility] Tracy Attending Provider Aliza GREEN, Terri Colvin Attending Unavailable Jazmin [facility] Tracy Referring Provider Carmen [place] Unavailable MD Moi [facility] Primary Care Provider [facility] Tracy Attending Provider [phone] Jazmin [facility] Tracy Referring Provider STEVO Wu Tracy Attending Provider Kaminiva tee Delgado [facility] Kristina E Emergency Provider [phone] Moi GREEN, [facility] Primary Care Provider Windnagel, Tracy Admitting Unavailable Windnagel, Tracy Attending Unavailable Erinnapeter, Tracy Referring Unavailable [facility] Primary Care Unavailable [facility] Windnagel, Tracy Admitting Unavailable Windnagel, Tracy Attending Unavailable [facility] Unavailable Bullimore, Kristina E Admitting Unavailable Bullimore, Kristina E Attending Unavailable [facility] Care Unavailable Bullimore, Kristina E Admitting Unavailable Bullimore, Kristina E Attending Unavailable [facility] Unavailable Windnagel, Tracy Admitting Unavailable Windnagel, Tracy Attending Unavailable Shaikh Prater MD Primary Care Provider ANANT CORTEZ Attending Unavailable DONAL, DANNI Referring Unavailable DONAL, DANNI Attending Unavailable OVITT, DUNIA Attending Unavailable BHAVESH JAMES Attending Unavailable DONAL, DANNI Referring Unavailable OVITT, DUNIA Referring Unavailable DONAL, DANNI Referring Unavailable Sukumar GREEN, J Luis Primary Care Provider [phone] Fabi [employer], Denis Unavailable Sukumar GREEN, J Luis Primary Care Provider Unallocated MD, Noms Provider Primary Care Provi sony Sukumar GREEN, J Luis Primary Care Provider NONE, XXXX Primary Care Physician Unavailab caroline DUNLAP, MS. DENIS ECHEVERRIA Primary Care P hysician Fabi [employer] TECHNICIAN, Denis Unavailable [phone] Bright Mejia Attending Unavailable Bright Mejia Referring Unavailable DUNLAP, DENIS Primary Care Unavailabl Bright Scales Attending Unavailable Bright Mejia Referring Unavailable DUNLAP, DENIS Primary Care Unavailabl e Bright Mejia Admitting Unavailable DUNLAP, DENIS Primary Care Unavailabl e Catalina Meier Attending Unavailable DENIS DUNLAP Attending Unavailabl e JAMI SMALL Attending Unavailable SHAIKH PRATER Attending Unavailable DENIS DUNLAP Attending Unavailabl ANNIE Gordon Attending Unavailable JAMI SMALL Attending Unavailable DUNLAPDENIS RENEE Attending Unavailabl e DUNLAPDENIS RENEE Attending Unavailabl e DUNLAPDENIS RENEE Attending Unavailabl e Allergies Allergy Classification Reported Allergen(s) Allergy Type Date of Onset Reaction(s) Facility (20 sources) Ibuprofen; Translations: [IBUPROFEN] Drug Allergy 3 Anaphylaxis [facility] Other (20 sources) NSAIDs; Translations: [NSAIDs] Propensity to adverse reactions 3 Anaphylaxis, Swelling, Shortness of breath, Anaphylaxis (disorder) [facility] (18 sources) Non-steroidal anti-inflammato ry agent; Translations: [NSAIDS (NON-STEROIDAL ANTI-INFLAMMATO RY DRUG)] Drug Allergy 3 Anaphylaxis, Other: See Comments, Shortness of Breath, Swelling [facility] (5 sources) NSAIDS (Non-Steroidal Anti-Inflamma; Translations: [NSAIDS (Non-Steroidal Anti-Inflamma] Allergy to substance [address] [facility] (1 source) NSAIDs Drug allergy (disorder) [facility] (20 sources) Aluminum aspirin; Translations: [ASPIRIN] Drug Allergy 3 Unknown [facility] Healthcare (20 sources) Naproxen; Translations: [NAPROXEN] Drug Allergy 3 Anaphylaxis [facility] Healthcare (20 sources) oxaprozin; Translations: [OXAPROZIN] Drug Allergy 3 Unknown [facility] Healthcare (20 sources) traMADol; Translations: [TRAMADOL] Drug Allergy 3 [facility] (1 source) Ibuprofen Drug Allergy [address] [facility] Repository (1 source) ALLERGIES NOT ON FILE; Translations: [ALLERGIES NOT ON FILE] Propensity to adverse reactions (disorder) [facility] Repository Medications Current Medications Medication Drug Class(es) Dates Sig (Normalized) Sig (Original) Albuterol-Budesoni de (Airsupra) 90-80 MCG/ACT aerosol (20 sources) Start: 04-06-2025 End: 05-06-2025 take 2 puff(s) by inhalation every six hours Albuterol-Budesonid e (Airsupra) 90-80 MCG/ACT aerosol Indications: Moderate persistent asthma without complication (HCC) Inhale 2 puffs every 6 (six) hours if needed (wheezing/shortness of breath) 10.7 g 1 04/06/2025 05/06/2025 Active Start: 02-11-2025 End: 03-13-2025 take 2 puff(s) by inhalation every six hours Albuterol-Budesonide (Airsupra) 90-80 MCG/ACT aerosol Indications: Moderate persistent asthma without complication (CMS/HCC) Inhale 2 puffs every 6 (six) hours if needed (wheezing, shortness of breath) 10.7 g 1 02/11/2025 03/13/2025 Active Start: 10-13-2024 End: 02-10-2025 take 2 puff(s) by inhalation every six hours Albuterol-Budesonide (Airsupra) 90-80 MCG/ACT aerosol Indications: Moderate persistent asthma without complication (CMS/HCC) Inhale 2 puffs every 6 (six) hours if needed (wheezing, shortness of breath) 10.7 g 2 10/13/2024 02/10/2025 Discontinued (Reorder) Start: 10-13-2024 take 2 puff(s) by in halation every six hours Albuterol-Budesonide (Airsupra) 90-80 MCG/ACT aerosol Indications: Moderate persistent asthma without complication (CMS/HCC) Inhale 2 puffs every 6 (six) hours if needed (wheezing, shortness of breath) 10.7 g 2 10/13/2024 Active Start: 09-10-2024 End: 10-13-2024 take 2 puff(s) by inhalation every six hours Albuterol-Budesonide (Airsupra) 90-80 MCG/ACT aerosol Indications: Moderate persistent asthma without complication (CMS/HCC) Inhale 2 puffs every 6 (six) hours if needed (wheezing, shortness of breath) 10.7 g 2 09/10/2024 10/13/2024 Discontinued (Reorder) Start: 09-10-2024 take 2 puff(s) by in halation every six hours Albuterol-Budesonide (Airsupra) 90-80 MCG/ACT aerosol Indications: Moderate persistent asthma without complication (CMS/HCC) Inhale 2 puffs every 6 (six) hours if needed (wheezing, shortness of breath) 10.7 g 2 09/10/2024 Active Start: 09-08-2024 End: 09-10-2024 take 2 puff(s) by inhalation every six hours Albuterol-Budesonide (Airsupra) 90-80 MCG/ACT aerosol Indications: Moderate persistent asthma without complication (CMS/HCC) Inhale 2 puffs every 6 (six) hours if needed (wheezing, shortness of breath) 10.7 g 2 09/08/2024 09/10/2024 Discontinued (Reorder) Start: 09-08-2024 take 2 puff(s) by in halation every six hours Albuterol-Budesonide (Airsupra) 90-80 MCG/ACT aerosol Indications: Moderate persistent asthma without complication (CMS/HCC) Inhale 2 puffs every 6 (six) hours if needed (wheezing, shortness of breath) 10.7 g 2 09/08/2024 Active Start: 05-27-2024 End: 09-03-2024 take 2 puff(s) by inhalation every six hours Albuterol-Budesonide (Airsupra) 90-80 MCG/ACT aerosol Indications: Moderate persistent asthma without complication (CMS/HCC) Inhale 2 puffs every 6 (six) hours if needed (wheezing, shortness of breath) 10.7 g 2 05/27/2024 09/03/2024 Discontinued (Reorder) Start: 05-27-2024 take 2 puff(s) by in halation every six hours Albuterol-Budesonide (Airsupra) 90-80 MCG/ACT aerosol Indications: Moderate persistent asthma without complication (CMS/HCC) Inhale 2 puffs every 6 (six) hours if needed (wheezing, shortness of breath) 10.7 g 2 05/27/2024 Active End: 04-06-2025 take 2 puff(s) by inhalation every six hours Albuterol-Budesonide (Airsupra) 90-80 MCG/ACT aerosol Inhale 2 puffs every 6 (six) hours if needed (wheezing/shortness of breath) 04/06/2025 Discontinued (Reorder) amLODIPine 5 mg oral tablet (20 sources) Dihydropyridine Calcium Channel Elinor Start: 10-29-2023 End: 04-26-2025 take 1 tablet by mouth once daily amLODIPine (Norvasc) 5 MG tablet Indications: Primary hypertension Take 1 tablet (5 mg) by mouth Daily 90 tablet 1 01/26/2025 04/26/2025 Active baclofen 20 mg oral tablet (20 [...] 20 mg by mouth three times daily. benzonatate 200 mg oral capsule (1 source) Non-narcotic Antitussive Start: 01-27-20 End: 02-03-20 take 1 capsule by mouth three times daily as needed for cough benzonatate (Tessalon) 200 MG capsule Indications: Acute cough Take 1 capsule (200 mg) by mouth 3 (three) times a day as needed for cough for up to 7 days Do not crush or chew. 21 capsule 01/26/2025 02/02/2025 Active 60 actuat budesonide 0.16 mg/actuat / formoterol fumarate 0.0045 mg/actuat metered dose inhaler (20 sources) Corticosteroid, beta2-Adrenergic Agonist Start: 01-29-20 End: 07-05-20 take 2 puff(s) by inhalation in the morning budesonide-formotero l (Symbicort) 160-4.5 MCG/ACT inhaler Indications: Moderate persistent asthma without complication (HCC) Inhale 2 puffs in the morning and 2 puffs before bedtime. Rinse mouth after use. 3 each 1 04/06/2025 07/05/2025 Active Continuous Glucose [employer]visor [employer] (Dexcom G7 Supervisor [employer]) device (7 sources) Start: 08-26-20 End: 09-25-20 Continuous Glucose Supervisor [employer] (Dexcom G7 Supervisor [employer]) device Indications: Type 2 diabetes mellitus without complication, without long-term current use of insulin (CMS/HCC) 1 each continuously 1 each 08/26/2024 09/25/2024 Active Continuous Glucose Sensor (Dexcom G7 Sensor) misc (20 sources) Start: 03-19-20 End: 04-18-20 Continuous Glucose Sensor (Dexcom G7 Sensor) misc Indications: Type 2 diabetes mellitus without complication, without long-term current use of insulin (HCC) 1 each by Other route Daily APPLY 1 SENSOR CONTINUOUSLY DIRECTED 3 each 11 03/19/2025 04/18/2025 Active Start: 01-27-2025 End: 03-19-2025 Continuous Glucose Sensor (D excom G7 Sensor) misc APPLY 1 SENSOR CONTINUOUSLY DIRECTED 01/27/2025 03/19/2025 Discontinued (Reorder) Start: 01-27-2025 Continuous Glu cose Sensor (Dexcom G7 Sensor) mis APPLY 1 SENSOR CONTINUOUSLY DIRECTED 01/27/2025 Active Start: 09-22-2024 End: 09-22-2024 Continuous Glucose Sensor (D excom G7 Sensor) misc Indications: Type 2 diabetes mellitus without complication, without long-term current use of insulin (CMS/HCC) 1 each continuously 3 each 3 09/22/2024 09/22/2024 Discontinued (Reorder) Start: 09-22-2024 End: 10-20-2024 Continuous Glucose Sensor (D excom G7 Sensor) misc Indications: Type 2 diabetes mellitus without complication, without long-term current use of insulin (CMS/HCC) 1 each continuously for 28 days 3 each 3 09/22/2024 10/20/2024 Active Start: 09-22-2024 Continuous Glu cose Sensor (Dexcom G7 Sensor) misc Indications: Type 2 diabetes mellitus without complication, without long-term current use of insulin (CMS/HCC) 1 each continuously 3 each 3 09/22/2024 Active Start: 08-26-2024 End: 09-22-2024 Continuous Glucose Sensor (D excom G7 Sensor) misc Indications: Type 2 diabetes mellitus without complication, without long-term current use of insulin (CMS/HCC) 1 each continuously 3 each 3 08/26/2024 09/22/2024 Discontinued (Reorder) Start: 08-26-2024 Continuous Glu cose Sensor (Dexcom G7 Sensor) misc Indications: Type 2 diabetes mellitus without complication, without long-term current use of insulin (CMS/HCC) 1 each continuously 3 each 3 08/26/2024 Active cyclobenzaprine (1 source) Muscle Relaxant Flexeril [...] Start: 09-26-2022 take 1 capsule by mo [facility] once daily DULoxetine (CYMBALTA) 60 mg capsule Take 60 mg by mouth once daily. 0 09/26/2022 Active Comment on above: Take 60 mg by mouth once daily. ferrous sulfate 325 mg delayed release oral tablet (20 sources) Start: 08-26-2024 End: 08-26-2025 take 1 tablet by mouth at mealtime ferrous sulfate 325 (65 Fe) MG EC tablet Take 325 mg by mouth in the morning. Take with meals. 02/23/2025 Active gabapentin 400 mg oral capsule (20 sources) [...] on above: Take 1 capsule by mo [facility] three times daily for 90 days. Take 300 mg by mouth three times daily. glipiZIDE er 10 mg 24 hr extended release oral tablet (20 sources) Sulfonylurea Start: 4 End: take 1 tablet by mouth once daily glipiZIDE XL (Glucotrol XL) 10 MG 24 hr tablet Indications: Uncontrolled type 2 diabetes mellitus with hyperglycemia (CMS/HCC) Take 1 tablet (10 mg) by mouth Daily 90 tablet 05/27/2024 06/26/2024 Discontinued (Dose adjustment) Start: 07-19-2023 take 1 tablet by nirav th every twenty-four hours in the morning glipiZIDE [...] tablet (20 sources) Biguanide Start: 10-24-2023 End: 06-09-2025 take 1 tablet by mouth in the morning metFORMIN (Glucophage) 1000 MG tablet Indications: Type 2 diabetes mellitus without complication, without long-term current use of insulin ([facility]) Take 1 tablet (1,000 mg) by mouth in the morning and 1 tablet (1,000 mg) in the evening. Take with meals. 180 tablet 1 02/11/2025 05/12/2025 Active Start: 01-27-2023 Metformin Acti ve MG [...] inhaler Active INHALATION January 27, 2023 12:00am Mounjaro 7.5 MG/0.5ML soluti on auto-injector (5 sources) Start: 03-18-2025 End: 04-15-2025 Mounjaro 7.5 MG/0.5ML soluti on auto-injector Inject 7.5 mg as directed every 7 (seven) days 03/18/2025 04/15/2025 Discontinued (Reorder) Start: 03-18-2025 Mounjaro 7.5 M G/0.5ML solution auto-injector Inject 7.5 mg as directed every 7 (seven) days 03/18/2025 Active OXcarbazepine 300 mg oral tablet (20 sources) Anti-epileptic Agent Start: 05-26-2024 End: 08-24-2024 take 1 tablet by mouth once daily [...] Active oxyCODONE hydrochloride 5 mg oral tablet (20 sources) Opioid Agonist Start: 07-15-2024 End: 05-15-2025 take 2 tablets by mouth every eight hours for pain oxyCODONE (Roxicodone) 5 MG immediate release tablet Indications: Chronic pain syndrome Take 2 tablets (10 mg) by mouth every 8 (eight) hours if needed for severe pain 180 tablet 04/15/2025 05/15/2025 Active Start: 05-05-2024 End: 06-26-2024 take 2 tablets by mouth every six hours for pain oxyCODONE (Roxicodone) 5 MG immediate release tablet Indications: Chronic neck and back pain Take 2 tablets (10 mg) by mouth every 6 (six) hours if needed for severe pain This is a 30 day supply 180 tablet 05/27/2024 06/26/2024 Active Start: 11-19-2023 End: 12-19-2023 take 2 [...] MG TABLET January 26, 2023 11:00pm prazosin 5 mg oral capsule (20 sources) alpha-Adrenergic Elinor Start: 02-18-2025 take 1 capsule by mouth at bedtime prazosin (Minipress) 5 MG capsule Take 5 mg by mouth at bedtime 02/18/2025 Active Start: 06-11-2024 End: 02-23-2025 take 2 capsules by mouth once daily prazosin (Minipress) 2 MG capsule Take 4 mg by mouth Daily 06/11/2024 02/23/2025 Discontinued (Therapy completed) Start: 05-01-2024 End: 06-26-2024 take 1 capsule by mouth once daily in the evening prazosin (Minipress) 1 MG capsule TAKE 1 CAPSULE BY MOUTH ONCE DAILY AT 6 PM 05/01/2024 06/26/2024 Discontinued (Therapy completed) pregabalin 200 mg oral capsule (20 sources) Start: 04-21-2024 End: 03-25-2025 take 1 capsule by mouth in the morning, then take 1 capsule by mouth in the evening, then take 1 capsule by mouth at bedtime pregabalin (Lyrica) 200 MG capsule Indications: Chronic neck and back pain Take 1 capsule (200 mg) by mouth in the morning and 1 capsule (200 mg) in the evening and 1 capsule (200 mg) before bedtime. 90 capsule 2 02/23/2025 Active Start: 08-23-2023 take 1 capsule by [...] sources) Nonergot Dopamine Agonist Start: 01-15-2024 End: 07-11-2025 take 1 tablet by mouth at bedtime rOPINIRole (Requip) 4 MG tablet Indications: Restless Leg Syndrome Take 1 tablet (4 mg) by mouth at bedtime 90 tablet 1 01/12/2025 07/11/2025 Active Start: 09-18-2023 End: 12-17-2023 take 1 [...] Active Comment on above: Requip Active sertraline 100 mg oral tablet (20 sources) Serotonin Reuptake Inhibitor Start: 02-07-2025 take 1 tablet by mouth once daily sertraline (Zoloft) 100 MG tablet Take 100 mg by mouth Daily 02/07/2025 Active Start: 08-22-2023 End: 02-23-2025 take 1 tablet by mouth in the morning sertraline (Zoloft) 50 MG tablet Take 50 mg by mouth in the morning. 08/22/2023 02/23/2025 Discontinued (Therapy completed) SITagliptin 100 mg oral tablet (9 sources) Dipeptidyl Peptidase 4 Inhibitor Start: 03-24-2024 End: 09-20-2024 take 1 tablet by mouth once daily SITagliptin (Januvia) 100 MG tablet Indications: Type 2 diabetes mellitus without complication, without long-term current use of insulin (CMS/HCC) Take 1 tablet (100 mg) by mouth Daily 90 tablet 1 03/24/2024 05/27/2024 Discontinued (Ineffective) Start: 09-10-2023 take 1 tablet by nirav th in the morning Januvia 100 MG tablet Take 100 mg by mouth in the morning. 0 09/10/2023 Active Tirzepatide (Mounjaro) 2.5 MG/0.5ML solution pen-injector (7 sources) Start: 05-27-2024 End: 06-24-2024 inject 2.5 mg by subcutaneous injection every week Tirzepatide (Mounjaro) 2.5 MG/0.5ML solution pen-injector Indications: Type 2 Diabetes Mellitus Inject 2.5 mg under the skin 1 (one) time per week 05/27/2024 06/24/2024 Active Tirzepatide (Mounjaro) 7.5 MG/0.5ML solution auto-injector (6 sources) Start: 04-15-2025 End: 05-13-2025 Tirzepatide (Mounjaro) 7.5 MG/0.5ML solution auto-injector Indications: Uncontrolled type 2 diabetes mellitus with hyperglycemia (HCC) Inject 7.5 mg as directed every 7 (seven) days for 28 days 2 mL 2 04/15/2025 05/13/2025 Active Start: 02-23-2025 End: 03-23-2025 Tirzepatide (Mounjaro) 7.5 M G/0.5ML solution auto-injector Indications: Type 2 diabetes mellitus without complication, without long-term current use of insulin (HCC) Inject 7.5 mg under the skin every 7 (seven) days for 28 days 2 mL 1 02/23/2025 03/23/2025 Active Start: 02-23-2025 End: 03-23-2025 Tirzepatide (Mounjaro) 7.5 M G/0.5ML solution auto-injector Indications: Type 2 diabetes mellitus without complication, without long-term current use of insulin Inject 7.5 mg under the skin every 7 (seven) days for 28 days 2 mL 1 02/23/2025 03/23/2025 Active tiZANidine 4 mg oral tablet (20 sources) Central alpha-2 Adrenergic Agonist Start: 05-26-2024 End: 06-11-2024 take 1 tablet by mouth twice daily tiZANidine (Zanaflex) 4 MG tablet Indications: Muscle spasm 1 tablet orally bid 180 tablet 2 06/11/2024 Active Start: 09-18-2023 take 1 tablet by nirav th every eight hours as needed tiZANidine (Zanaflex) 4 MG tablet Take 1 tablet by mouth every 8 (eight) hours if needed 0 09/18/2023 Active traZODone hydrochloride 50 mg oral tablet (20 sources) Serotonin Reuptake Inhibitor Start: 07-06-2023 End: 09-04-2023 take 1 tablet by mouth once daily at bedtime traZODone (DESYREL) 50 mg tablet Take 1 tablet by mouth daily at bedtime. 30 tablet 1 07/06/2023 09/04/2023 Active Start: 05-02-2023 End: 06-26-2024 take 1 tablet by mouth at bedtime traZODone (Desyrel) 100 MG tablet Take 1 tablet by mouth at bedtime 05/02/2023 06/26/2024 Discontinued (Therapy completed) Start: 04-17-2023 End: 06-16-2023 take 1 tablet [...] Drug Class(es) Dates Sig (Normalized) Sig (Original) [id number] 200 actuat albuterol 0.09 mg/actuat metered dose inhaler (20 sources) beta2-Adrenergic Agonist Start: 07-28-2024 End: 02-23-2025 take 2 puff(s) by inhalation every four hours for wheezing albuterol HFA 90 mcg/act inhaler Inhale 2 puffs every 4 (four) hours if needed for wheezing 07/28/2024 02/23/2025 Discontinued (Therapy completed) Start: 03-16-2024 End: 07-22-2024 take 2 puff(s) [...] oral tablet (13 sources) Penicillin-class Antibacterial Start: End: take 1 tablet by mouth every twelve [...] Continuous Glucose Sensor (FreeStyle Liv 2 Sensor) [facility] (20 sources) Start: End: Continuous Glucose Sensor (FreeStyle Liv 2 Sensor) [facility] Indications: Type 2 diabetes mellitus without complication, with long-term current use of insulin ([facility]) , Uncontrolled type 2 diabetes mellitus with hyperglycemia (CMS/HCC) Inject 1 each under the skin continuously 1 each 08/05/2024 08/26/2024 Discontinued (Other) Start: 08-05-2024 End: 08-05-2025 Continuous Glucose Sensor (F reeStyle Liv 2 Sensor) mis Indications: Type 2 diabetes mellitus without complication, with long-term current use of insulin (CMS/HCC) , Uncontrolled type 2 diabetes mellitus with hyperglycemia (CMS/HCC) Inject 1 each under the skin continuously 1 each 08/05/2024 08/05/2025 Active Start: 06-26-2024 End: 08-04-2024 Continuous Glucose Sensor (F reeStyle Liv 2 Sensor) mis Indications: Type 2 diabetes mellitus without complication, with long-term current use of insulin ([facility]/HCC) , Uncontrolled type 2 diabetes mellitus with hyperglycemia (CMS/HCC) Inject 1 each under the skin continuously 1 each 11 06/26/2024 08/04/2024 Discontinued (Reorder) Start: 06-26-2024 End: 06-26-2025 Continuous Glucose Sensor (F reeStyle Liv 2 Sensor) [facility] Indications: Type 2 diabetes mellitus without complication, with long-term current use of insulin (CMS/HCC) , Uncontrolled type 2 diabetes mellitus with hyperglycemia (CMS/HCC) Inject 1 each under the skin continuously 1 each 06/26/2024 06/26/2025 Active Start: 06-19-2024 End: 06-26-2024 Continuous Glucose Sensor (F reeStyle Liv 2 Sensor) [facility] APPLY 1 EVERY 14 DAYS DIRECTED 06/19/2024 06/26/2024 Discontinued (Reorder) 60 actuat formoterol fumarate 0.005 mg/actuat / [...] ml insulin glargine 100 unt/ml pen injector (20 sources) Insulin Analog Start: 06-26-2024 End: 01-10-2025 insulin glargine (Lantus SoloStar) 100 UNIT/ML pen Indications: Uncontrolled type 2 diabetes mellitus with hyperglycemia ([facility]/HCC) Inject 40 Units under the skin at bedtime 3 mL 11 07/14/2024 08/18/2024 Discontinued (Side effects) Start: 01-15-2024 End: 07-13-2024 insulin glargine (Lantus Aidee oStar) 100 UNIT/ML pen Indications: Uncontrolled type 2 diabetes mellitus with hyperglycemia ([facility]) Inject 30 Units under the skin at bedtime 27 mL 1 01/15/2024 06/26/2024 Discontinued Multivitamin preparation (8 sources) Multivitamin Not -Taking/PRN Multivitamin Not -Taking phentermine hydrochloride 37.5 mg oral tablet (5 sources) Sympathomimetic Amine Anorectic Start: 10-16-2023 End: 11-19-2023 take 40-44.9 tablets by mouth before mealtime phentermine (Adipex-P) 37.5 MG tablet Indications: Class 3 severe obesity due to excess calories with serious comorbidity and body mass index (BMI) of 40.0 to 44.9 in adult (CMS/[facility]) Take 1 tablet (37.5 mg) by mouth [...] 08/11/2024 Active Tirzepatide (Mounjaro) 5 MG/0.5ML solution auto-injector (20 sources) Start: 12-01-2024 End: 02-23-2025 Tirzepatide (Mounjaro) 5 MG/0.5ML solution auto-injector Indications: Type 2 diabetes mellitus without complication, with long-term current use of insulin , Uncontrolled type 2 diabetes mellitus with hyperglycemia (CMS/HCC) Inject 5 mg under the skin 1 (one) time per week 0.5 mL 3 12/01/2024 02/23/2025 Discontinued (Therapy completed) Start: 12-01-2024 Tirzepatide (M ounjaro) 5 MG/0.5ML solution auto-injector Indications: Type 2 diabetes mellitus without complication, with long-term current use of insulin , Uncontrolled type 2 diabetes mellitus with hyperglycemia (CMS/HCC) Inject 5 mg under the skin 1 (one) time per week 0.5 mL 3 12/01/2024 Active Start: 11-26-2024 Tirzepatide (M ounjaro) 5 MG/0.5ML solution auto-injector Indications: Type 2 diabetes mellitus without complication, with long-term current use of insulin (CMS/HCC) , Uncontrolled type 2 diabetes mellitus with hyperglycemia (CMS/HCC) Inject 5 mg under the skin 1 (one) time per week 0.5 mL 3 11/26/2024 Active Start: 07-22-2024 End: 11-26-2024 Tirzepatide (Mounjaro) 5 MG/ 0.5ML solution auto-injector Indications: Type 2 diabetes mellitus without complication, with long-term current use of insulin (CMS/HCC) , Uncontrolled type 2 diabetes mellitus with hyperglycemia (CMS/HCC) Inject 5 mg under the skin 1 (one) time per week 0.5 mL 3 07/22/2024 11/26/2024 Discontinued (Reorder) Start: 07-22-2024 Tirzepatide (M ounjaro) 5 MG/0.5ML solution auto-injector Indications: Type 2 diabetes mellitus without complication, with long-term current use of insulin (CMS/HCC) , Uncontrolled type 2 diabetes mellitus with hyperglycemia (CMS/HCC) Inject 5 mg under the skin 1 (one) time per week 0.5 mL 3 07/22/2024 Active Tirzepatide (Mounjaro) 5 MG/0.5ML solution pen-injector (9 sources) Start: 06-26-2024 End: 07-22-2024 Tirzepatide (Mounjaro) [...] Virus Nucleoside Analog DNA Polymerase Inhibitor Start: 10-26-2023 take 1 tablet by mouth three times [...] psychological factors] Onset: 12-28-2022 Chronic Mood disorders (20 sources) Major depressive disorder, single episode, in full remission; Translations: [Major depressive disorder] Onset: 03-05-2024 Chronic Osteoarthritis (20 sources) Arthritis of knee; Translations: [Unilateral primary osteoarthritis, right knee] Onset: 10-30-2022 Chronic Other aftercare (1 source) 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; Translations: [ASSISTED USE ORAL HYPOGLYCEMIC DX] Onset: 03-05-2023 Episodic [...] Onset: 02-13-2023 Chronic Other nervous system disorders (1 source) Chronic pain; Translations: [Other chronic pain] Chronic Other non-traumatic joint disorders (20 sources) Polyarthropathy; [...] obesity due to excess calories] Onset: 10-16-2023 Resolved: 04-06-2025 10-16-2023 Chronic Other screening for suspected conditions (not mental disorders or infectious disease) (16 sources) Encounter for screening for lipoid disorders; Translations: [Patient encounter status] Onset: 12-29-2022 04-06-2025 Episodic Other upper respiratory infections (1 source) Chronic sinusitis, unspecified; Translations: [CHRONIC SINUSITIS UNSPECIFIED] Onset: 10-24-2022 Chronic Residual codes; unclassified (20 sources) Hypersomnia; Translations: [Hypersomnia, unspecified] Onset: 11-19-2023 11-19-2023 Chronic Residual codes; unclassified (20 sources) Periodic limb movement disorder; Translations: [Periodic limb movement disorder] Onset: 03-06-2024 03-06-2024 Chronic Residual codes; unclassified (20 sources) Obstructive sleep apnea syndrome; Translations: [Obstructive sleep apnea (adult) (pediatric)] Onset: 06-10-2024 06-10-2024 Chronic Residual codes; unclassified (20 sources) Periodic leg movements of sleep ; Translations: [Periodic limb movement disorder] Onset: 03-06-2024 03-06-2024 Chronic Residual codes; unclassified (1 source) Sleep [...] (1 source) APPOINTMENT CANCELLED Unclassified (1 source) ASSISTED INJECT NONINSULN ANTIDIAB; Translations: [ASSISTED INJECT NONINSULN ANTIDIAB] Onset: 03-05-2023 Unclassified (3 [...] Classification Problem Date Documented Da te Episodic/Chronic Deficiency and other anemia (20 sources) Iron deficiency anemia secondary to inadequate dietary iron intake; Translations: [Other iron deficiency anemias] Onset: 08-26-2024 08-26-2024 Episodic E Codes: Natural/environment (1 source) Other and unspecified overexertion or strenuous movements or postures, initial encounter; Translations: [OTH AND UNS OVREXRT/STRN MVMT/POS INT] Onset: 07-14-2022 Episodic Malaise and fatigue (2 sources) Asthenia; Translations: [Weakness] 06-11-2024 Episodic Mood disorders (5 sources) Mood disorders Onset: 04-06-2025 04-06-2025 Other aftercare (1 source) Other correction (current) drug therapy; Translations: [OTH ASSISTED CURRENT DRUG THERAPY] Onset: 10-24-2022 Episodic Other aftercare (20 sources) Long-term current use of drug therapy; Translations: [Encounter for therapeutic drug level monitoring] Onset: 01-22-2024 01-22-2024 Episodic Other aftercare (10 sources) Patient encounter status; Translations: [Encounter for therapeutic drug level monitoring] Onset: 01-22-2024 01-22-2024 Episodic Other connective tissue disease (2 sources) Spasm; Translations: [Other muscle spasm] 06-11-2024 Episodic Other lower respiratory disease (17 sources) Cough; Translations: [Acute cough] Onset: 01-26-2025 Resolved: 04-06-2025 01-26-2025 Episodic Other nervous system disorders (20 sources) Paresthesia; Translations: [Paresthesia of skin] Onset: 06-10-2024 06-10-2024 Episodic Other non-traumatic joint disorders (4 sources) Pain in right knee; Translations: [PAIN IN RIGHT KNEE] Onset: 07-13-2022 Episodic Other nutritional; endocrine; and metabolic disorders (20 sources) Obesity; Translations: [Obesity, unspecified] Onset: 06-10-2024 Resolved: 02-23-2025 06-10-2024 Chronic Other skin disorders (4 sources) Localized swelling, [...] Test Name Value Interpretation Reference Range Facility HbA1c (Bld) [Mass fraction]O rdered By: Galimartha Allred on 02-23-2025 Interpretation and review of laboratory results Abnormal [facility] [employer] Laboratory - Hematology and Cell countsOrdered By: Gali Allred on 02-23-2025 HbA1c (Bld) [Mass fraction] 9.7 % [facility] Nonvisit Note - PTon 025 Nonvisit Note - PT Nonvisit Note - PT Per the front end software engineer, 9:45 9:45 pool cxl due to running fever & not feeling well. Normal [facility] Nonvisit Note - PTon 025 Nonvisit Note - PT Nonvisit Note - PT Per the front end software engineer, 9:15 Pool cxl'd. No ride due to having family emergency. Normal [facility] MRI Spine Lumbar w/o Contras ton 10-23-2024 MRI Spine Lumbar w/o Contrast Exam Date/Time: 10/21/2024 11:25 EST Reason for Exam: M54.50 Report IMPRESSION: DISC DISEASE L4-5 AND L5-S1, DESCRIBED IN DETAIL. EXAM: MRI Spine Lumbar w/o Contrast DATE: 10/21/2024 11:10 AM CLINICAL HISTORY: M54.50. COMPARISON: Lumbar spine radiographs 08/21/[address] 09/01/2024. TECHNIQUE: Multiplanar MR imaging of the lumbar spine was performed without contrast. FINDINGS: The spine is visualized from T11-12 through S2, on the diagnostic sagittal sequences. Bone marrow signal/fracture: Mild type II degenerative endplate changes L5-S1. Otherwise, unremarkable. Alignment: Lumbar lordosis is maintained. Vertebral body heights and alignment are within normal limits. Conus: The conus is within normal limits of signal intensity and morphology. Paraspinal soft tissues: Paraspinal soft tissues are unremarkable. Lower thoracic spine: Visualized lower thoracic canal and foramina are without significant narrowing. L1-2: No significant disc bulge, central spinal stenosis or neural foraminal narrowing. L2-3: No significant disc bulge, central spinal stenosis or neural foraminal narrowing. L3-4: No significant disc bulge, central spinal stenosis or neural foraminal narrowing. L4-5: Moderate sized broad based central to left subarticular disc protrusion that contacts and posteriorly displaces the left L5 nerve root. L5-1: Mild posterolateral endplate osteophytosis with associated broad-based disc bulge and mild to moderate hypertrophic facet changes,, which results in mild to moderate neural foraminal narrowing, greater on the right. No central spinal stenosis or discrete disc extrusion. Report Sacrum and iliac wings: Unremarkable. Ordering Provider: Bright Mejia FINAL REPORT Dictated: 10/23/2024 3:48 pm Matt Lock MD Signed (Electronic Signature): 10/23/2024 3:48 pm Signed by: Matt Lock MD Transcribed by: LONDON Technologist: LAKESHIA Technical Comments None Normal [facility] XR Spine Lumbosacral Minimum 4 Viewson 10-23-2024 XR Spine Lumbosacral Minimum 4 Views Exam Date/Time: 10/21/2024 10:41 EST Reason for Exam: M54.50 Report IMPRESSION: No acute osseous findings. EXAMINATION/TECHNIQUE : XR Spine Lumbosacral Minimum 4 Views HISTORY: Low back pain. COMPARISON: CT 09/01/2024. RESULT: Counting reference of L5-S1 is the last well-formed disc space. Straightening of the lumbar lordosis. Alignment otherwise anatomic. No significant change in alignment from flexion to extension. No evidence for acute fracture. Degenerative changes, grossly unchanged. Soft tissues grossly unremarkable. No other significant abnormality. Ordering Provider: Bright Mejia FINAL REPORT Dictated: 10/23/2024 3:36 pm Bhavesh Keita MD Signed (Electronic Signature): 10/23/2024 3:36 pm Signed by: Bhavesh Keita MD Transcribed by: LONDON Technologist: JACKELYN Technical Comments Radiation Dose: Ka,r in mGy = . DAP = . Normal [facility] CT Spine Lumbar w/o Contrast on 09-01-2024 CT Spine Lumbar w/o Contrast Exam Date/Time: 09/01/2024 13:33 EST Reason for Exam: Radiculopathy Report IMPRESSION: MILD TO MODERATE DEGENERATIVE CHANGES OF THE LUMBOSACRAL JUNCTION WITH NEURAL FORAMINAL NARROWING L5-S1. EXAM: CT Spine Lumbar w/o Contrast DATE: 09/01/2024 1:04 PM CLINICAL HISTORY: Radiculopathy. COMPARISON: None available. TECHNIQUE: Spiral imaging was obtained of the lumbar spine, with routine multiplanar reconstructions performed. All CT scans at this facility use dose modulation, iterative reconstruction, and/or weight based dosing when appropriate to reduce radiation dose to as low as reasonably achievable. FINDINGS: There is no compression, fracture, significant subluxation, worrisome bone destruction, or other acute findings identified. The sacroiliac joints are unremarkable. L1-2: No central spinal stenosis, neural foraminal narrowing, or significant disc herniation. L2-3: No central spinal stenosis, neural foraminal narrowing, or significant disc herniation. L3-4: No central spinal stenosis, neural foraminal narrowing, or significant disc herniation. L4-5: No central spinal stenosis, neural foraminal narrowing, or significant disc herniation. L5-1: Mild to moderate disc space narrowing, mild to moderate posterolateral endplate osteophytosis with associated broad-based disc protrusion and minimal to mild hypertrophic facet changes, which results in [id number] neural foraminal narrowing. No central spinal stenosis or significant disc herniation. Visualized paraspinous soft tissues and bony pelvis: Minimal calcific atherosclerotic plaquing. Otherwise, noncontributory Report Ordering Provider: Arnel Serrano FINAL REPORT Dictated: 09/01/2024 2:29 pm Matt Lock MD Signed (Electronic Signature): 09/01/2024 2:29 pm Signed by: Matt Lock MD Transcribed by: LONDON Technologist: ELIAZAR [facility] CT Spine Thoracic w/o Jude rinaldi 09-01-2024 CT Spine Thoracic w/o Contrast Exam Date/Time: 09/01/2024 13:33 EST Reason for Exam: Radiculopathy Report IMPRESSION: ESSENTIALLY NEGATIVE THORACIC SPINE CT. EXAM: CT Spine Thoracic w/o Contrast DATE: 09/01/2024 1:04 PM CLINICAL HISTORY: Radiculopathy. COMPARISON: None available. TECHNIQUE: Spiral imaging was obtained of the thoracic spine, with routine multiplanar reconstructions performed. All CT scans at this facility use dose modulation, iterative reconstruction, and/or weight based dosing when appropriate to reduce radiation dose to as low as reasonably achievable. FINDINGS: Minimal predominantly dorsal osteophytosis is noted of the mid to lower thoracic levels. There is no central spinal stenosis, neural foraminal narrowing, or sizable disc herniations identified. The vertebral body heights, alignment, disc spaces, facet joints, and paraspinous musculature appear within normal limits. Ordering Provider: Arnel Serrano FINAL REPORT Dictated: 09/01/2024 2:25 pm Matt Lock MD Signed (Electronic Signature): 09/01/2024 2:25 pm Signed by: Matt Lock MD Transcribed by: LONDON Technologist: ELIAZAR Montiel [facility] ED Clinical Summaryon 2023 ED Clinical Summary ED Clinical Summary [place] [id number] ED Clinical Summary Person Information Name: BHAVESH CÁRDENAS [facility] Age: 48 Years : 1975 Sex: Male Language: Estonian PCP: NONE, XXXX Marital Status: MRN: Visit Id: Visit Reason: Back pain; SEVERE BACK PAIN Speciality: Acuity: 4 Enc Type: Emergency Med Service: Emergency Arrival: 09/01/2024 10:09:43 Discharge: 09/01/2024 15:03:29 LOS: 000 04:54 Checkin: 09/01/2024 10:09:43 Checkout: 09/01/2024 15:03:29 Dispo Type: Home (Routine DC) EVENTS: Event Name Event Status Request Date/Time Start Date/Time Complete Date/Time Arrive Complete 09/01/2024 10:09:43 09/01/2024 10:09:43 09/01/2024 10:09:43 Document Home Meds Request 09/01/2024 10:09:43 Triage Complete 09/01/2024 10:09:43 09/01/2024 10:38:16 09/01/2024 10:38:16 Bed Assign Complete 09/01/2024 10:34:55 09/01/2024 10:34:55 09/01/2024 10:34:55 Dr Exam Complete 09/01/2024 10:34:55 09/01/2024 10:43:06 09/01/2024 10:43:06 RN Exam Complete 09/01/2024 10:34:55 09/01/2024 12:42:48 09/01/2024 12:42:48 Registration Complete 09/01/2024 10:43:06 09/01/2024 10:51:43 09/01/2024 10:51:43 Reg Complete Request 09/01/2024 10:51:43 Reg Bed Request Complete 09/01/2024 10:51:43 09/01/2024 10:51:43 09/01/2024 10:51:43 Dr Exam Complete 09/01/2024 12:08:58 09/01/2024 12:08:58 09/01/2024 12:08:58 Registration Request 09/01/2024 12:08:58 Dr Exam Complete 09/01/2024 12:15:33 09/01/2024 12:15:33 09/01/2024 12:15:33 Meds Admin Complete 09/01/2024 12:45:20 09/01/2024 13:09:46 CT Complete 09/01/2024 12:45:20 09/01/2024 13:04:36 09/01/2024 13:33:45 Meds Admin Complete 09/01/2024 14:36:26 09/01/2024 14:58:17 Discharge Complete 09/01/2024 14:49:12 09/01/2024 15:03:34 09/01/2024 15:03:34 Transfer Complete 09/01/2024 15:03:34 09/01/2024 15:03:34 09/01/2024 15:03:34 ADDRESS: [address] [place] [id number] [facility] DOC NOTES: MEDICAL INFORMATION: Prescriptions Given: PATIENT EDUCATION INFORMATION: Instructions: Chronic Back Pain; Acute Back Pain, Adult Follow up: With: Address: When: Bright Mejia [address] [facility], [address] [place] [phone] Business (1) In 3 days 09/04/2024 Comments: Call for diagnosis based follow up With: Address: When: Francis Barr [address], [address] [place] [address] Business (1) In 3 days 09/04/2024 Comments: Call for diagnosis based follow up DIAGNOSIS: Acute back pain Normal [facility] ED Note-Physicianon 09-01-20 ED Note-Physician ED Note-Physician Basic Information No qualifying data available. Chief Complaint pt was seen sunday at [facility] for pain. Pt presenting with pain in lower back and mid back. chronic back pain. muscle relaxer not working History of Present Illness 48 year old male presents to the ED for evaluation of back pain. He has a past medical history of chronic low back pain, and lumbar stenosis. He also states that he has some degenerative disk disease in his cervical vertebrae. He also had a radiofrequency ablation in his low back. He states that this episode started 4 days ago when he drove to [facility]. Since then it has been getting progressively worse. Reports all the pain in his low back at this time. He went to [facility] on Sunday for this pain. He states that they gave him muscle relaxers and morphine, neither of which helped the pain. Today he is in severe pain at rest that is worse with movement. He states that the pain ranges from his butt to his mid-back. He states that the pain is deep, stabbing and burning in nature. The pain radiates down both legs, but is more severe on the right side. He denies any fever, nausea, trouble with bowel movements or urination. He denies any bowel or bladder dysfunction. Denies any numbness or tingling in his groin area. Review of Systems No other aggravating or relieving factors no other associated symptoms no other prior treatments or complaints. Family: Reviewed and noncontributory Social: lives at home Review of systems negative unless otherwise specified in the HPI. Physical Exam Vitals & Measurements T: 36.7 ???C(Oral) HR: 83(Peripheral) RR: 16 BP: 149/92 SpO2: 98% HT: 162 cm WT: 100.5 kg BMI: 38.29 General: alert, no acute distress, Resting in the chair, very uncomfortable due to acute back pain. Skin: warm, dry Head: no trauma, normocephalic Neck: Trachea midline, mild tenderness Eye: normal conjunctiva, sclera clear ENMT: Oral mucosa moist Cardiovascular: regular rate and rhythm, normal peripheral perfusion. Pedal pulses +2 bilaterally Respiratory: Lungs CTA, respirations non labored Chest wall: no deformity. Gastrointestinal: non distended Back: Severe tenderness- Lumbar vertebrae, Abnormal ROM due to pain, Normal alignment. MSK: Left lower extremity strength: 5+, Right lower extremity strength: 4 Extremities: no deformity, no trauma Neurological: LOC appropriate for age, speech normal Psychiatric: cooperative, affect appropriate for age, normal judgement, normal psychiatric thoughts. Medical Decision Making MEDICAL DECISION MAKING Number and Complexity of Problems Differential Diagnosis: [] [facility] Data External documents reviewed: [] My EKG interpretation: [] My CT interpretation: Reviewed My X-ray interpretation: [] My Ultrasound interpretation: [] Decision rules/scores evaluated: [] Discussed with: [] Treatment and Disposition ED Course: A 48-year-old male reports to the emergency department with complaints of back pain. Reports he does have a history of back pain, but is never had it this bad. Reports been on for last 4 days. Denies any warning signs for cauda equina syndrome. Denies any bowel or bladder deficits. He does have tenderness over his lumbar and thoracic spine. Due to this, we did do a CT. CT was negative for any acute findings. Degenerative changes seen. Patient was given Dilaudid as well as Kenalog here in the Emergency Department. Did have mild improvement. Patient was given Valium for muscle relaxant relief. Patient was comfortable being discharged after negative CT. He will follow-up with outpatient neurosurgery. Discussed return precautions. Follow-up with your primary care provider in 3 to 5 days. If symptoms worsen, do not improve, or new symptoms arise please report back to emergency department for further evaluation. The patient was understanding and agreeable to plan moving forward. Arnel Miller PA-C had a [id number] interaction with the patient. I personally performed a physical exam and medical decision making. I have verified the documentation by the student as accurately representing the information obtained. Shared decision making: [] Code status: [] Assessment/Plan Acute back pain (M54.9: Dorsalgia, unspecified) Orders: diazepam, 5 mg = 1 tab(s), Tab, Oral, Once, Stop date 09/01/24 14:36:00 EST, STAT, Start date 09/01/24 14:36:00 EST, 09/01/24 14:36:00 EST HYDROmorphone, 1 mg = 1 mL, Injection, IntraMuscular, Once, Stop date 09/01/24 12:44:00 EST, STAT, Start date 09/01/24 12:44:00 EST, 09/01/24 12:44:00 EST triamcinolone, 40 mg = 1 mL, Susp-Inj, IntraMuscular, Once, Stop date 09/01/24 12:44:00 EST, STAT, Start date 09/01/24 12:44:00 EST, 09/01/24 12:44:[address] Spine Lumbar w/o Contrast CT Spine Thoracic w/o Contrast Disposition Plan Patient Discharge Condition Stable Discharge Disposition To home Discharge Prescription List Prescriptions No active prescri (more content not included)... Normal [facility] Comment on above: Result Comment: Elec tronically Signed By: Catalina Meier M.D.\.br\Date and Time Signed: 09/01/24 17:50 EST\.br\Electronically Co-Signed By: Arnel Serrano PA-C\.br\Date and Time Co-Signed: 09/01/24 17:20 EST ED Patient Summaryon 024 ED Patient Summary ED Patient Summary [place] [id number] Patient Discharge Instructions Person Information Name: BHAVESH CÁRDENAS Age: 48 Years Arrival Date: 09/01/2024 10:09:43 Discharge Diagnosis: Acute back pain Primary Care Physician: NONE, XXXX Provider Information Primary Provider: Catalina Meier M.D. [employer] Attendant:None The exam and treatment you received in the Emergency Department were for an urgent problem and are not intended as complete care. It is important that you follow up with a doctor, nurse practitioner, or physician???s optometric assistant for ongoing care. If your symptoms become worse or you do not improve as expected and you are unable to reach your usual health care provider, you should return to the Emergency Department. We are available 24 hours a day. BHAVESH CÁRDENAS has been given the following list of patient education materials, prescriptions and follow-up instructions: Follow-up Instructions: With: Address: When: Bright Mejia [address] [facility], [address] [place] [phone] Business (1) In 3 days 09/04/2024 Comments: Call Dr for diagnosis based follow up With: Address: When: Francis Barr [address], [address] [place] [address] [facility] (1) In 3 days 09/04/2024 Comments: Call Dr for diagnosis based follow up In the event that this physician does not participate in your insurance network, please consult with your insurance company to find a nearby participating provider. Patient Education Materials: Chronic Back Pain; Acute Back Pain, Adult A MESSAGE TO ALL PATIENTS REGARDING OPIOIDS PRESCRIPTION OPIOIDS: WHAT YOU NEED TO KNOW Prescription opioids can be used to help relieve [id number] pain and are often prescribed following a surgery or injury, or for certain health conditions. These medications can be an important part of the treatment but also come with serious risks. It is important to work with your healthcare provider to make sure you are getting the safest, most effective care. WHAT ARE THE RISKS AND SIDE EFFECTS OF OPIOID USE? Prescription opioids carry serious risks of addiction and overdose, especially with prolonged use. An opioid overdose, often marked by slowed breathing, can cause sudden . The use of prescription opioids can have a number of side effects as well, even when taken as directed: ??? Tolerance???meaning you might need to take more of the medication for the same pain relief ??? Physical dependence???meaning you have symptoms of withdrawal when a medication is stopped ??? Increased sensitivity to pain ??? Constipation ??? Nausea, vomiting, and dry mouth ??? Sleepiness and dizziness ??? Confusion ??? Depression ??? Low levels of testosterone that can result in lower sex drive, energy, and strength ??? Itching and sweating RISKS ARE GREATER WITH: ??? History of drug misuse, substance use disorder, or overdose ??? Mental health conditions (such as depression or anxiety) ??? Sleep apnea ??? Older age (65 years and older) ??? Avoid alcohol while taking prescription opioids. Also, unless specifically advised by your health care provider, medications to avoid include: ??? Benzodiazepines (such as Xanax or Valium) ??? Muscle relaxants (such as Soma or Flexeril) ??? Hypnotics (such as Ambien or Lunesta) ??? Other prescription opioids KNOW YOUR OPTIONS Talk to your health care provider about ways to manage your pain that don???t involve prescription opioids. Some of these options may actually work better and have fewer risks and side effects. Options may include: ??? Pain relievers such as acetaminophen, ibuprofen, and naproxen ??? Some medication that are also used for depression or seizures ??? Physical therapy and exercise ??? Cognitive behavioral therapy, a psychological, goal-directed approach, in which patients learn how to modify physical, behavioral, and emotional triggers of pain and stress. IF YOU ARE PRESCRIBED OPIOIDS FOR PAIN: ??? Never take opioids in greater amounts or more often than prescribed. ??? Follow up with your primary health care provider. o Work together to create a plan on how to manage your pain. o Talk about ways to help manage your pain that don???t involve prescription opioids. o Talk about any and all concerns and side effects. ??? Help prevent misuse and abuse o Never sell or share prescription opioids. o Never use another person???s prescription opioids. ??? Store prescription opioids in a secure place and out of reach of others (this may include visitors, children, friends, and family). ??? Safely dispose of unused prescription opioids: Find your community drug take-back program or your pharmacy mail-back program, or flush them down the toilet, following guidance from the Food and D (more content not included)... Normal [facility] METRO IRON AND TIBCon 2023 Interpretation and review of laboratory results Abnormal [facility] TB IRON 55 ug/dL Low 65.0 - 175.0 ug/dL [facility] TB PERCENT IRON SATURATION 20.4 % [facility] TB TOTAL IRON BINDING CAPACITY 269 ug/dL 250.0 - 450.0 ug/dL [facility] ALL CBC WITH AUTO DIFFon BASOPHILS ABSOLUTE AUTO 0.1 [facility] Basophils/100 WBC (Bld) 0.6 % 0.2 - 2.0 % [facility] Eosinophils/100 WBC (Bld) 2.2 % 0.9 - 7.0 % [facility] Erythrocyte distribution width (RBC) [Ratio] 13.2 % 11.0 - 15.0 % [facility] Hematocrit (Bld) [Volume fraction] 41 % Low 42.0 - 54.0 % [facility] Hemoglobin (Bld) [Mass/Vol] 14.2 g/dL 14.0 - 18.0 g/dL [facility] IMMATURE GRANULOCYTES ABS AUTO 0.05 High [facility] Immature granulocytes/100 WBC (Bld) 0.5 % 0.0 - 0.5 % [facility] Interpretation and review of laboratory results Abnormal [facility] LYMPHOCYTES ABSOLUTE AUTO 2.7 [facility] Lymphocytes/100 WBC (Bld) 24.1 % 20.5 - 60.0 % [facility] MCH (RBC) [Entitic mass] 30.6 pg 25.9 - 34.0 pg [facility] MCHC (RBC) [Mass/Vol] 34.6 g/dL 29.9 - 35.2 g/dL [facility] MCV (RBC) [Entitic vol] 88.4 fL 80.0 - 94.0 fL [facility] MONOCYTES ABSOLUTE AUTO 0.8 [facility] Monocytes/100 WBC (Bld) 7 % 1.7 - 12.0 % [facility] NEUTROPHILS ABSOLUTE AUTO 7.2 High [facility] Neutrophils/100 WBC (Bld) 65.6 % 43.0 - 75.0 % [facility] Platelet mean volume (Bld) [Entitic vol] 10.1 fL 9.5 - 13.5 fL [facility] TBH EO # 0.2 [facility] TBH PLT 336 [facility] TB RBC 4.64 Low [facility] TB WBC 11 [facility] Health[facility] e CCF CMP (CMP) (FOR REMOTE FH C USE)on 08-19-2024 Albumin [Mass/Vol] 3.7 g/dL 3.4 - 5.0 g/dL [facility] ALBUMIN GLOBULIN RATIO 1.1 [facility] ALP [Catalytic activity/Vol] 99 U/L 46 - 116 U/L [facility] ALT [Catalytic activity/Vol] 29 U/L 16 - 63 U/L [facility] Anion gap [Moles/Vol] 16.2 mmol/L [facility] AST [Catalytic activity/Vol] 15 U/L 15 - 37 U/L [facility] Bilirubin [Mass/Vol] 0.3 mg/dL 0.2 - 1 .0 mg/dL [facility] Calcium [Mass/Vol] 9.4 mg/dL 8.5 - 10. 1 mg/dL [facility] Chloride [Moles/Vol] 101 mmol/L 98 - 10 7 mmol/L [facility] CO2 [Moles/Vol] 26 mmol/L 21.0 - 32.0 mmol/L [facility] Creatinine [Mass/Vol] 0.99 mg/dL 0.70 - 1.30 mg/dL [facility] GFR/1.73 sq M.predicted CKD-EPI (S/P/Bld) [Vol rate/Area] >60 >=60 mL/min/1.73m 2 [facility] Globulin (S) [Mass/Vol] 3.5 g/dL [facility] Glucose [Mass/Vol] 149 mg/dL High 74 - 106 mg/dL [facility] Interpretation and review of laboratory results Abnormal [facility] Potassium [Moles/Vol] 4.2 mmol/L 3.5 - 5.1 mmol/L [facility] Protein [Mass/Vol] 7.2 g/dL 6.4 - 8.2 g/dL [facility] Sodium [Moles/Vol] 139 mmol/L 136 - 145 mmol/L [facility] TBH EGFR-NON AF SAUDI ARABIAN >60 >=60 mL/min/1.73m 2 [facility] Urea nitrogen [Mass/Vol] 8 mg/dL 7.0 - 18.0 mg/dL [facility] Urea nitrogen/Creatinine [Mass ratio] 8.1 mg/mg [facility] HEMOGLOBIN A1Con 08-19-2 024 Glucose [Mass/Vol] 174 mg/dL [facility] HbA1c (Bld) [Mass fraction] 7.7 % High 4.5 - 6.2 % [facility] Comment on above: ADA RECOMMENDED LIMI T 4.0 - 6.0 ADA THERAPEUTIC TARGET < 7.0 ACTION SUGGESTED > 7.0 Interpretation and review of laboratory results Abnormal [facility] Health[facility] e TBH MICROALB CREAT RATIO RAN DOMon 06-27-2024 CREATININE URINE RANDOM 212.32 mg/dL 20.00 - 300.00 mg/dL [facility] MICROALBUM CREATININE RATIO UR 14.6 mg/g 0.0 - 29.9 mg/g [facility] Comment on above: NO MICROALBUMINURIA 0-29 MG/G CLINICAL MICROALBUMINURIA 30-300 MG/G MACROALBUMINURIA >300 MG/G MICROALBUMIN URINE RANDOM 3.1 mg/dL NINF - 30.0 mg/dL [facility] e ALL CBC WITH AUTO DIFFon BASOPHILS ABSOLUTE AUTO 0.1 [facility] Basophils/100 WBC (Bld) 0.7 % 0.2 - 2.0 % [facility] Eosinophils/100 WBC (Bld) 2.4 % 0.9 - 7.0 % [facility] Erythrocyte distribution width (RBC) [Ratio] 12.4 % 11.0 - 15.0 % [facility] Hematocrit (Bld) [Volume fraction] 41.4 % Low 42.0 - 54.0 % [facility] Hemoglobin (Bld) [Mass/Vol] 14.6 g/dL 14.0 - 18.0 g/dL [facility] IMMATURE GRANULOCYTES ABS AUTO 0.10 High [facility] Immature granulocytes/100 WBC (Bld) 0.9 % High 0.0 - 0.5 % [facility] Interpretation and review of laboratory results Abnormal [facility] LYMPHOCYTES ABSOLUTE AUTO 2.6 [facility] Lymphocytes/100 WBC (Bld) 24.5 % 20.5 - 60.0 % [facility] MCH (RBC) [Entitic mass] 30.6 pg 25.9 - 34.0 pg [facility] MCHC (RBC) [Mass/Vol] 35.3 g/dL High 29.9 - 35.2 g/dL [facility] MCV (RBC) [Entitic vol] 86.8 fL 80.0 - 94.0 fL [facility] MONOCYTES ABSOLUTE AUTO 0.7 [facility] Monocytes/100 WBC (Bld) 6.6 % 1.7 - 12.0 % [facility] NEUTROPHILS ABSOLUTE AUTO 6.9 High [facility] Neutrophils/100 WBC (Bld) 64.9 % 43.0 - 75.0 % [facility] Platelet mean volume (Bld) [Entitic vol] 10.5 fL 9.5 - 13.5 fL [facility] TBH EO # 0.3 [facility] PLT 308 [facility] RBC 4.77 [facility] TB[facility] WBC 10.6 [facility] Orders Onlyon 05-26-2024 Orders Only [id number] Bhavesh Cárdenas 1975 M Date Provider Department Center 05/26/2024 752-PHYLLIS FORMAN MP PAIN [facility] Family History Problem Relation Age of Onset Multiple sclerosis Father Prostate cancer Father Family Status - Relation Status Age at Father Normal [facility] Orders Onlyon 05-22-2024 Orders Only [id number] Bhavesh Cárdenas 1975 M Date Provider Department Center 05/22/2024 1800-DEEPIKA BRIONES MP PROC [facility] Family History Problem Relation Age of Onset Multiple sclerosis Father Prostate cancer Father Family Status - Relation Status Age at Father Normal [facility] Office Visiton 04-16-2024 Follow-up visit [id number] Bhavesh Cárdenas 1975 M Date Provider Department Center 04/16/2024 Cristel-ANANT CORTEZ MP PAIN [facility] Family History Problem Relation Age of Onset Multiple sclerosis Father Prostate cancer Father Family Status - Relation Status Age at Father Level of Service:24111 [place] OFFICE/OUTPATIENT ESTABLISHED MOD MDM 30 MIN Reason for Visit and Comments: Pain [136] - Chief complaint - pain from the neck all the way to the lower back that radiates through the groin area and down the legs Normal [facility] Procedure Visiton 03-05-2024 Procedure Visit [id number] Bhaevsh Cárdenas 1975 M Date Provider Department Center 03/05/2024 407-BHAVESH JAMES [facility] PSYCH Eloise Heal Family History Problem Relation Age of Onset Multiple sclerosis Father Prostate cancer Father Family Status - Relation Status Age at Father Level of Service:30823 [place] OFFICE/OP CONSLTJ NEW/EST PT HIGH MDM 55 MINUTES Reason for Visit and Comments: Psychiatric Evaluation [362594] [facility] Office Visiton 02-19-2024 Follow-up visit [id number] Bhavesh Cárdenas eTre 1975 M Date Provider Department Center 02/19/2024 DANNI PENA [facility] SURG [place] Family History Problem Relation Age of Onset Multiple sclerosis Father Prostate cancer Father Family Status - Relation Status Age at Father Level of Service:47727 [place] OFFICE/OP CONSLTJ NEW/EST PT MOD MDM 40 MINUTES Reason for Visit and Comments: Follow-up [517943] - Pt is here for an office visit to discuss SCS. [facility] 36on 12-03-2023 36 Spoke with patient. [...] I did offer to refer him to [facility] for a second opinion for pain management and to discuss possibility of spinal cord stimulation. He will consider his options and will let us know if he would like a referral. [facility] 36on 11-29-2023 36 Patient called state s recently seen and would like to know if MRI completed at [facility] has been rec'd and reviewed. He can be reached at [phone] Thank you [facility] Telephoneon 11-29-2023 Telephone [id number] Bhavesh Cárdenas 1975 M Date Provider Department Center 11/29/2023 ERICK [facility] [place] Family History Problem Relation Age of Onset Multiple sclerosis Father Prostate cancer Father Family Status - Relation Status Age at Father [facility] Consulton 11-21-2023 Consult [id number] AmbroseBhavesh saucedo 1975 M Date Provider Department Center 11/21/2023 148DEVIKA [facility] SURG Second Fl Family History Problem Relation Age of Onset Multiple sclerosis Father Prostate cancer Father Family Status - Relation Status Age at Father Level of Service:91330 [place] OFFICE/OUTPATIENT NEW HIGH MDM 60 MINUTES Reason for Visit and Comments: Consult [484] - Bhavesh is here today for a consult for Lumbar spondylosis. 2nd opinion. Imaging requested from Roberto Carlos dangelo [facility]. Normal [facility] Automated erythrocytes count in urine sediment (number/area)Ordered By: Kristina Delgado on 08-24-2023 RBC Auto (Urine sed) [#/Area] None seen [HPF] 0-[address] [facility] Automated leukocytes count i n urine sediment (number/area)Ordered By: Kristina Delgado on 08-24-2023 WBC Auto (Urine sed) [#/Area] None seen [HPF] 0-[address] [facility] Bilirubin Test strip Ql (U)O rdered By: Kristina Delgado on 08-24-2023 Bilirubin Ql (U) Negative Negative [facility] CT lumbar spine wo conon CT lumbar spine wo con [facility] [address] CT Scan Report Signed Patient: Bhavesh Cárdenas MR#: [id number] : 1975 Acct:[id number] Age/Sex: 47 / M ADM Date: 08/24/23 Loc: ER Room: Type: [facility] ER Attending Dr: Copies to: DU [...] Polina Cabrera M.D.08/24/2023 3:01 PM Dictation Location: [place] [address] Transcribed By: [facility] 08/24/23 1501 Dictated By: Polina Cabrera MD 08/24/23 1453 Signed By: 08/24/[address] [facility] Color Auto (U)Ordered By: Ly Delgado on 08-24-2023 Color (U) Yellow Yellow [facility] Dipstick and Microscopicon 1 10-24-2022 Appearance (U) Cloudy Critically abnormal Clear [facility] Comment on above: Order Comment: Name Collection Type:: Clean-Voided Midstream Performed By: #### A DDONUAPLUS #### [facility] [address] Bacteria,Urine None Seen Normal None Seen [facility] Comment on above: Order Comment: Name Collection Type:: Clean-Voided Midstream Performed By: #### A DDONUAPLUS #### [facility] [address] [place] [address] [place] Bilirubin,Urine Negative Normal Negative [facility] Comment on above: Order Comment: Name Collection Type:: Clean-Voided Midstream Performed By: #### A DDONUAPLUS #### [address] Color (U) Yellow Normal Yellow [facility] Comment on above: Order Comment: Name Collection Type:: Clean-Voided Midstream Performed By: #### A DDONUAPLUS #### [place] [address] [place] Glucose Ql (U) 100 mg/dL High Normal [facility] Comment on above: Order Comment: Name Collection Type:: Clean-Voided Midstream Performed By: #### A DDONUAPLUS #### [place] [address] [place] Hyaline Casts,Urine None Seen Normal 0-8 [facility] Comment on above: Order Comment: Name Collection Type:: Clean-Voided Midstream Result Comment: PERF ORMED BY: [place] [address] PATHOLOGIST [employer] ADMINISTRATOR COLUMBA CHRISTY M.D. Performed By: #### A DDONUAPLUS #### [address] Ketones Ql (U) Negative Normal Negative [facility] Comment on above: Order Comment: Name Collection Type:: Clean-Voided Midstream Performed By: #### A DDONUAPLUS #### [place] [address] [place] Leukocyte esterase Test strip Ql (U) Negative Normal Negative [facility] Comment on above: Order Comment: Name Collection Type:: Clean-Voided Midstream Performed By: #### A DDONUAPLUS #### [place] [address] [place] Nitrite,Urine Negative Normal Negative [facility] Comment on above: Order Comment: Name Collection Type:: Clean-Voided Midstream Performed By: #### A DDONUAPLUS #### [facility] [address] Occult Blood,Urine Negative Normal Negative [facility] Comment on above: Order Comment: Name Collection Type:: Clean-Voided Midstream Result Comment: PERF ORMED BY: [place] [address] PATHOLOGIST [employer] ADMINISTRATOR COLUMBA CHRISTY M.D. Performed By: #### A DDONUAPLUS #### [address] pH (U) 6.0 [pH] Normal 5.0-9.[address] [facility] Comment on above: Order Comment: Name Collection Type:: Clean-Voided Midstream Performed By: #### A DDONUAPLUS #### [address] Protein,Urine Negative Normal Negative [facility] Comment on above: Order Comment: Name Collection Type:: Clean-Voided Midstream Performed By: #### A DDONUAPLUS #### [address] RBC,Urine None Seen Normal 0-[address] [facility] Comment on above: Order Comment: Name Collection Type:: Clean-Voided Midstream Performed By: #### A DDONUAPLUS #### [address] Specificy Lyle,Urine 1.013 Normal 1.001-1.[address] [facility] Comment on above: Order Comment: Name Collection Type:: Clean-Voided Midstream Performed By: #### A DDONUAPLUS #### [place] [address] [place] Squamous Epithelial Cell,Urine None Seen Normal 0-[address] [facility] Comment on above: Order Comment: Name Collection Type:: Clean-Voided Midstream Performed By: #### A DDONUAPLUS #### [place] [address] [place] Urobilinogen,Urine Normal Normal Normal [facility] Comment on above: Order Comment: Name Collection Type:: Clean-Voided Midstream Performed By: #### A DDONUAPLUS #### [facility] [address] WBC,Urine None Seen Normal 0-[address] [facility] Comment on above: Order Comment: Name Collection Type:: Clean-Voided Midstream Performed By: #### A DDONUAPLUS #### [facility] [address] Ketones Auto test strip (U) [Mass/Vol]Ordered By: Kristina Delgado on 08-24-2023 Ketones (U) [Mass/Vol] Negative Negative [facility] Laboratory - UrinalysisOrder ed By: Kristina Delgado on 08-24-2023 Hyaline casts LM Ql (Urine sed) None seen [LPF] 0-[address] [facility] Nitrite Test strip Ql (U)Ord ered By: Kristina Delgado on 08-24-2023 Nitrite Ql (U) Negative Negative [facility] Protein Auto test strip (U) [Mass/Vol]Ordered By: Kristina Delgado on 08-24-2023 Protein (U) [Mass/Vol] Negative Negative [facility] Specific gravity Auto test s trip (U) [Rel density]Ordered By: Kristina Delgado on 08-24-2023 Specific gravity (U) [Rel density] 1.013 1.001-1.[address] [facility] Squamous epithelial cells de tection in urine sediment by light microscopyOrdered By: Kristina Delgado on 08-24-2023 Epithelial cells.squamous LM Ql (Urine sed) None seen [HPF] 0-[address] [facility] Urine bacteria detection by automated methodOrdered By: Kristina Delgado on 08-24-2023 Bacteria Auto Ql (U) None seen None Seen [facility] Urine clarity by refractomet ry automatedOrdered By: Kristina Delgado on 08-24-2023 Clarity Refractometry automated (U) Cloudy Clear [facility] Urine glucose measurement by automated test strip (mass/volume)Ordered By: Kristina Delgado on 08-24-2023 Glucose Auto test strip (U) [Mass/Vol] 100 mg/dL Normal [facility] Urine hemoglobin detection b y automated test stripOrdered By: Kristina Delgado on 08-24-2023 Hemoglobin Auto test strip Ql (U) Negative Negative [facility] Urine leukocyte esterase det ection by automated test stripOrdered By: Kristina Delgado on 08-24-2023 Leukocyte esterase Auto test strip Ql (U) Negative Negative [facility] Urobilinogen Auto test strip (U) [Mass/Vol]Ordered By: Kristina Delgado on 08-24-2023 Urobilinogen (U) [Mass/Vol] Normal mg/dL Normal [facility] pH Auto test strip (U)Ordere d By: Kristina Delgado on 08-24-2023 pH (U) 6.0 [pH] 5.0-9.[address] [facility] MR lumbar spine wo conon MR lumbar spine wo con [facility] [place] [address] MRI Report Signed Patient: Bhavesh Cárdenas MR#: [id number] : 1975 Acct:[id number] Age/Sex: 47 / M ADM Date: 06/21/23 Loc: MR Room: Type: [facility] Attending Dr: Tracy Wu Adult [employer] TECHNICIAN-BC Copies to: KINJAL William Ordering Provider: KINJAL [...] Clayton Joe M.D.06/22/2023 1:14 PM Dictation Location: [place] [address] Transcribed By: [facility] 06/22/23 1314 Dictated By: Clayton Joe II, MD 06/22/23 1308 Signed By: 06/22/23 1314 [facility] MR thoracic spine wo conon 0 05-16-2023 MR thoracic spine wo con [facility] [place] [address] MRI Report Signed Patient: Bhavesh Cárdenas MR#: [id number] : 1975 Acct:[id number] Age/Sex: 47 / M ADM Date: 05/16/23 Loc: MR Room: Type: [facility] Attending Dr: Tracy Wu Adult [employer] TECHNICIAN-BC Copies to: KINJAL William Ordering Provider: KINJAL William Date of Service: 05/16/23 MR/MR cervical spine wo con: M47.896 ([id number]) MR/MR thoracic spine wo con: M47.896 CLINICAL [...] Polina Cabrera M.D.05/16/2023 9:00 PM Dictation Location: [place] [address] Transcribed By: [facility] 05/16/232099 Dictated By: Polina Cabrera MD 05/16/232049 Signed By: 05/16/232099 [facility] Theodora 03-28-2023 SWAPNA Telephone (engageSimply) COLBYBHAVESH Royal ([id number]) 1975 M Date Time Provider Department 03/28/23 KB LORENZO During your visit today, we recorded the following information about you: Lori Woody RN 03/28/2023 2:37 PM Signed Weight entered in [employer] Allergies As of Date: 03/28/2023 Noted Allergy [...] Encounter Status:Closed by LORNA ANAYA on 03/28/23 [facility] Theodora 03-27-2023 SWAPNA Telephone (KIESHA) BHAVESH CÁRDENAS ([id number]) 1975 M Date Time Provider Department 03/27/23 [...] Encounter Status:Closed by LORNA ANAYA on 03/27/23 [facility] BHAVESH CÁRDENAS ([id number]) 1975 M Date Time Provider Department 02/19/23 [...] increase in pain, requests phone call at [phone]. Lori Woody RN 02/21/2023 3:57 PM Addendum [...] Fully Assessed Reason for Visit: Patient Question [0822] Prescriptions as of 02/21/2023 - traZODone (DESYREL) [...] Encounter Status:Closed by LORNA ANAYA on 02/19/23 [facility] Theodora 02-09-2023 [facility] Telephone (NEPREM) BHAVESH CÁRDENAS ([id number]) 1975 M Date Time Provider Department 02/09/23 [...] Fully Assessed Reason for Visit: Patient Question [4967] Order(s):methylPREDNI Solone (MEDROL, GUSTABO,) 4 mg Dose-PackUse [...] min 4V*on XR lumbar spine min 4V* [facility] [place] [address] [place] [address] XRay Report Signed Patient: Bhavesh Cárdenas MR#: [id number] : 1975 Acct:[id number] Age/Sex: 47 / M ADM Date: 01/27/23 Loc: ER Room: Type: [facility] ER Attending Dr: Copies to: DU [...] Polina Cabrera M.D.01/27/2023 11:42 AM Dictation Location: [place] [address] Transcribed By: [facility] 01/27/23 1142 Dictated By: Polina Cabrera MD 01/27/23 1138 Signed By: 01/27/23 1142 [facility] HISTORY PHYSICALon HISTORY PHYSICAL HNO ID: [id number] Author: Kb Lorenzo DO Service: ? Author [...] NURSING PROGon 01-24-2023 NURSING PROG HNO ID: [id number] Author: Blank Moya RN Service: ? Author Type: Registered Nurse Type: Nursing Progress Note Filed: 01/29/2023 9:01 AM Note Text: Summary: Post-Procedure Call Post Procedure Follow Up Phone Call. No answer. The patient was instructed to call [phone] with the percentage of pain relief and what activities have improved. Blank Moya RN January 29, 2023 [facility] OPERATIVE NOon 01-24-2023 OPERATIVE NO HNO ID: [id number] Author: Kb Lorenzo DO Service: ? Author Type: Physician Type: Operative Report Filed: 01/24/2023 10:12 AM Note Text: LOG ID: [id number] Surgery/Procedure Date: 01/24/2023 Surgeon: Kb Lorenzo DO Head Tennis Professional: Washington Joya MD Procedure(s): Bilateral Sacroiliac Joint [...] NURSING PROGon 01-22-2023 NURSING PROG HNO ID: [id number] Author: Frank Marrufo RN Service: Pain Management [...] 2 hours before the appointment. 2. A regional company truck driver must be present who can drive you home. If you are coming by medical transport, you must have a responsible person other than the manager of transportation with you. 3. If you take [...] or cannot make the appointment by calling [phone] (Option 2). [facility]NPRC21) BHAVESH CÁRDENAS ([id number]) 1975 M Date Time Provider Department 01/11/23 [...] answered questions related to spine injection procedure. -Mine Motor Operator is needed and for regional company truck driver to wait in lobby on [...] J14 an hour prior to arriving to [facility]. INR<1.3 Taking aspirin 81mg: no Any open wounds/sores?: no Taking Antibiotics?: no Diabetic: no , notified that blood sugar will be taken at office and ok to take morning diabetes medication. Is this patient's first injection?: no, any complications: no Patient notified that Klonopin PO can be given prior to injection to help with anxiety. Patient verbalized understanding. Patient given number [phone], spine injections schedulers, if there is any [...] BASO # 0.1 103/ul Normal 0.0-0.1 [facility] Comment on above: Performed By: #### C BC #### [facility] [address] [place] [address] Dr. Oscar Ocampo Basophils/100 WBC (Bld) 0.6 % Normal 0.2-2.0 [facility] Comment on above: Performed By: #### C BC #### [facility] [address] [place] [address] Dr. Oscar Ocampo EO # 0.2 103/ul Normal 0.0-0.7 [facility] Comment on above: Performed By: #### C BC #### [facility] [address] [place] [address] Dr. Oscar Ocampo Eosinophils/100 WBC (Bld) 1.7 % Normal 0.9-7.0 [facility] Comment on above: Performed By: #### C BC #### [facility] [address] [place] [address] Dr. Oscar Ocampo Erythrocyte distribution width (RBC) [Ratio] 12.2 % Normal 11.0-15.0 [facility] Comment on above: Performed By: #### C BC #### [facility] [address] [place] [address] Dr. Oscar Ocampo Hematocrit (Bld) [Volume fraction] 44.4 % Normal 42.0-54.0 [facility] Comment on above: Performed By: #### C BC #### [facility] [address] [place] [address] Dr. Oscar Ocampo Hemoglobin (Bld) [Mass/Vol] 14.9 g/dL Normal 14.0-18.0 [facility] Comment on above: Performed By: #### C BC #### [facility] [address] [place] [address] Dr. Oscar Ocampo IG # 0.03 10e3/ul Normal 0.00-0.03 [facility] Comment on above: Performed By: #### C BC #### [facility] [address] [place] [address] Dr. Oscar Ocampo IG % 0.3 % Normal 0.0-0.5 [facility] Comment on above: Performed By: #### C BC #### [facility] [address] [place] [address] Dr. Oscar Ocampo LYMPH # 2.9 103/ul Normal 1.2-3.8 [facility] Comment on above: Performed By: #### C BC #### [facility] [address] [place] [address] Dr. Oscar Ocampo Lymphocytes/100 WBC (Bld) 32.6 % Normal 20.5-60.0 [facility] Comment on above: Performed By: #### C BC #### [facility] [address] [place] [address] Dr. Oscar Ocampo MANUAL DIFF REQ NO Normal [facility] Comment on above: Performed By: #### C BC #### [facility] [address] [place] [address] Dr. Oscar cOampo MCH (RBC) [Entitic mass] 30.0 pg Normal 25.9-34.0 [facility] Comment on above: Performed By: #### C BC #### [facility] [address] [place] [address] Dr. Oscar Ocampo MCHC (RBC) [Mass/Vol] 33.6 g/dL Normal 29.9-35.2 [facility] Comment on above: Performed By: #### C BC #### [facility] [address] [place] [address] Dr. Oscar Ocampo MCV (RBC) [Entitic vol] 89.3 fL Normal 80.0-94.0 [facility] Comment on above: Performed By: #### C BC #### [facility] [address] [place] [address] Dr. Oscar Ocampo MONO # 0.8 103/ul Normal 0.3-0.8 [facility] Comment on above: Performed By: #### C BC #### [facility] [address] [place] [address] Dr. Oscar Ocampo Monocytes/100 WBC (Bld) 8.7 % Normal 1.7-12.0 [facility] Comment on above: Performed By: #### C BC #### [facility] [address] [place] [address] Dr. Oscar Ocampo NEUT # 5.1 103/ul Normal 1.4-6.5 [facility] Comment on above: Performed By: #### C BC #### [facility] [address] [place] [address] Dr. Oscar Ocampo Neutrophils/100 WBC (Bld) 56.1 % Normal 43.0-75.0 [facility] Comment on above: Performed By: #### C BC #### [facility] [address] [place] [address] Dr. Oscar Ocampo Platelet mean volume (Bld) [Entitic vol] 10.5 fL Normal 9.5-13.5 [facility] Comment on above: Performed By: #### C BC #### [facility] [address] [place] [address] Dr. Oscar Ocampo PLT 311 103/ul Normal 150-450 [facility] Comment on above: Performed By: #### C BC #### [facility] [address] [place] [address] Dr. Oscar Ocampo RBC 4.97 106/ul Normal 4.70-6.10 [facility] Comment on above: Performed By: #### C BC #### [facility] [address] [place] [address] Dr. Oscar Ocampo WBC 9.0 103/ul Normal 4.0-11.0 [facility] Comment on above: Performed By: #### C BC #### [facility] [address] [place] [address] Dr. Oscar Ocampo GLYCOHEMOGLOBIN A1Con 2022 ADA RECOMMENDATION SEE BELOW Normal [facility] Comment on above: Result Comment: ADA RECOMMENDED LIMIT 4.0 - 6.0 ADA THERAPEUTIC TARGET < 7.0 ACTION SUGGESTED > 7.0 Performed By: #### A 1C #### [facility] [address] [place] [address] Dr. Oscar Ocampo Glucose [Mass/Vol] 289 mg/dL Normal [facility] Comment on above: Performed By: #### A 1C #### [facility] [address] [place] [address] Dr. Oscar Ocampo HbA1c (Bld) [Mass fraction] 11.7 % Critically high 4.5-6.2 [facility] Comment on above: Performed By: #### A 1C #### [facility] [address] [address] [address] Oscar Ocampo LIPID PROFILEon 12-21-2022 CHOL-HDL RATIO NORM SEE BELOW Normal [facility] Comment on above: Result Comment: 3.3 - 4.4 LOW RISK 4.4 - 7.1 AVERAGE RISK 7.1 - 11.0 MODERATE RISK >11.0 HIGH RISK Performed By: #### L IPID, BMP #### [facility] [address] [address] [address] Oscar Ocampo Cholesterol [Mass/Vol] 217 mg/dL Critically high <=200 [facility] Comment on above: Performed By: #### L IPID, BMP #### [facility] [address] [address] [address] Oscar Ocampo Cholesterol in HDL [Mass/Vol] 40 mg/dL Normal 40-60 [facility] Comment on above: Performed By: #### L IPID, BMP #### [facility] [address] [address] [address] Oscar Ocampo Cholesterol in LDL [Mass/Vol] 133.4 mg/dL Normal [facility] Comment on above: Performed By: #### L IPID, BMP #### [facility] [address] [address] [address] Oscar Ocampo Cholesterol.total/Ch olesterol in HDL [Mass ratio] 5.4 {ratio} Normal [facility] Comment on above: Performed By: #### L IPID, BMP #### [facility] [address] [address] [address] Oscar Ocampo HDL NORMAL > or = 60 mg/dl - LO W CARDIOVASCULAR RISK <40 mg/dl - HIGH CARDIOVASCULAR RISK Normal [facility] Comment on above: Performed By: #### L IPID, BMP #### [facility] [address] [address] [address] Oscar Ocampo LDL CALC NORMAL SEE BELOW Normal [facility] Comment on above: Result Comment: <100 mg/dl OPTIMAL 100 - 129 mg/dl NEAR OR ABOVE OPTIMAL 130 - 159 mg/dl BORDERLINE HIGH 160 - 189 mg/dl HIGH >190 mg/dl VERY HIGH Performed By: #### L IPID, BMP #### [facility] [address] [place] [address] Dr. Oscar Ocampo Triglyceride [Mass/Vol] 218 mg/dL Critically high <=150 [facility] Comment on above: Performed By: #### L IPID, BMP #### [facility] [address] [place] [address] Dr. Oscar Ocampo VLDL CALC 43.6 mg/dL Normal [facility] Comment on above: Performed By: #### L IPID, BMP #### [facility] [address] [place] [address] Dr. Oscar Ocampo PROF CHEM 8 (BAS METB)on Anion gap [Moles/Vol] 12.6 mmol/L Normal [facility] Comment on above: Performed By: #### L IPID, BMP #### [facility] [address] [place] [address] Dr. Oscar Oacmpo Calcium [Mass/Vol] 9.6 mg/dL Normal 8.5-10.1 [facility] Comment on above: Performed By: #### L IPID, BMP #### [facility] [address] [place] [address] Dr. Oscar Ocampo Chloride [Moles/Vol] 100 mmol/L Normal 98-107 [facility] Comment on above: Performed By: #### L IPID, BMP #### [facility] [address] [place] [address] Dr. Oscar Ocampo CO2 [Moles/Vol] 28.6 mmol/L Normal 21.0-32.0 [facility] Comment on above: Performed By: #### L IPID, BMP #### [facility] [address] [place] [address] Dr. Oscar Ocampo Creatinine [Mass/Vol] 0.84 mg/dL Normal 0.70-1.30 [facility] Comment on above: Performed By: #### L IPID, BMP #### [facility] [address] [address] [address] Oscar Ocampo EGFR-AF SAUDI ARABIAN >60 Normal >=60 [facility] Comment on above: Performed By: #### L IPID, BMP #### [facility] [address] [address] [address] Oscar Ocampo EGFR-NON AF SAUDI ARABIAN >60 Normal >=60 [facility] Comment on above: Performed By: #### L IPID, BMP #### [facility] [address] [address] [address] Oscar Ocampo Glucose [Mass/Vol] 197 mg/dL Critically high 74-106 [facility] Comment on above: Performed By: #### L IPID, BMP #### [facility] [address] [place] [address] Dr. Oscar Ocampo Potassium [Moles/Vol] 4.2 mmol/L Normal 3.5-5.1 [facility] Comment on above: Performed By: #### L IPID, BMP #### [facility] [address] [address] [address] Oscar Ocampo Sodium [Moles/Vol] 137 mmol/L Normal 136-145 [facility] Comment on above: Performed By: #### L IPID, BMP #### [facility] [address] [place] [address] Dr. Oscar Ocampo Urea nitrogen [Mass/Vol] 14.0 mg/dL Normal 7.0-18.0 [facility] Comment on above: Performed By: #### L IPID, BMP #### [facility] [address] [place] [address] Dr. Oscar Ocampo Urea nitrogen/Creatinine [Mass ratio] 16.7 mg/mg Normal [facility] Comment on above: Performed By: #### L IPID, BMP #### [facility] [address] [place] [address] Dr. Oscar Yip 12-15-2022 SWAPNA Telephone (NPRC21) BHAVESH CÁRDENAS ([id number]) 1975 M Date Time Provider Department 12/15/22 [...] Encounter Status:Closed by LORI WOODY on 12/15/22 [facility] CNOVon 11-24-2022 CNOV Office Visit (SPNMMN ) BHAVESH CÁRDENAS ([id number]) 1975 M Date Time Provider Department 11/24/22 [...] entered in activity in visit navigator: Yes Mine Motor Operator for post spine injection procedure: Yes [...] All in agreement. Referring Provider: KB LORENZO [[id number]] Allergies As of Date: 11/24/2022 Noted Allergy Reaction NSAIDS (NON-STEROIDAL ANTI-INFLAM* 10 - Anaphylaxis 14 - Other: See Comments 12 - Shortness of Breath 7 - Swelling Date Reviewed: 11/24/2022 Reviewed by: Gillian Vega RN - Fully Assessed Primary Visit Diagnosis:APPOINTMENT CANCELLED Order(s):GLUCOSE, BLOOD (POC) [[id number]] Order #: [id number]. #:[id number] Prescriptions as of 12/26/2022 - DULoxetine (CYMBALTA) [...] entered in activity in visit navigator: Yes Mine Motor Operator 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 Menstrual Date: NA Undergone Injection in the past: Yes, DarlingKayley schaeffer Time since last PO intake: this am [...] 430 mg/dL Abnormal 74 - 99 mg/dL [facility] CNPNon 11-16-2022 CNPN Telephone (SPNMMN) BHAVESH CÁRDENAS ([id number]) 1975 M Date Time Provider Department 11/16/22 KB LORENZO [facility] During your visit today, we recorded the following information about you: Washington Ly LPN 11/16/2022 1:00 PM Signed Tried to reach patient via telephone for pre-procedure guidelines regarding spine injection with Dr. Lorenzo on 11/24/2022, patient unable to talk on phone at this time. Voicemail box is full and cannot accept messages at this time.. [employer] message sent with pre-procedure guidelines for injection. [...] Status:Closed by WASHINGTON LY on 11/16/22 Normal [facility] CNOVon 11-15-2022 CNOV Office Visit (NPRC21 ) BHAVESH CÁRDENAS ([id number]) 1975 M Date Time Provider Department 11/15/22 2:00 PM KB LORENZO NPRC21 During your visit today, we recorded the following information about you: Pulse Respiration Blood pressure 90/minute 18/minute 121/87 Kb Lorenzo DO 12/09/2022 11:53 AM Signed [facility] [place] November 15, 2022 This is a in-person visit. 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 He was referred by Olayinka Boyd [address] [address] [facility] [id number]. Chief complaint: Center of back pain that [...] doctor and was seen by rheumatology. 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 He started physical therapy In 2020 the patient was sent to a L5-S1 for radiofrequency ablation that were not helpful. The diagnostic blocks was done as well. This was done at [place]. The patient tried to tolerate [...] patient was seen by neurosurgery here at [facility] and not deemed an appropriate surgical candidate. [...] Denies CHF: Denies Uncontrolled HTN: Denies Recent [place]: Denies Arrythmias: Denies Afib: Denies Hyperthyroid: Denies [...] Never Substance use: He never used tobacco. @[facility]@ denies current and past significant alcohol use and @[facility]@ describes current alcohol consumption as 3-4 shots [...] Comment: Speci men Type: BLOOD SPECIMENOrdering Facility: [facility] Address: [address] [address] Result Comment: Anti -nuclear antibody test is used as an aid in diagnosis of systemic autoimmune diseases. Where positive and clinically warranted, follow-up using disease-specific testing is recommended. Low positive titers are not uncommon with advanced age, certain chronic infections, and malignancies among others. Test methodology: Indirect fluorescence immunoassay (IFA) using HEp-2 cells. Performed By: #### A NAIFR ####[facility] [id number] [place] [address] [place] C-REACTIVE PROTEIN (CRP)on 0 10-30-2022 CRP [Mass/Vol] <0.9 mg/dL [facility] CBC W Auto Differential pane l (Bld)on 10-30-2022 Basophils (Bld) [#/Vol] 0.07 10*3/uL Normal <0.11 [facility] Comment on above: Order Comment: Speci men Type: BLOOD SPECIMENOrdering Facility: [facility] Address: [address] [id number] Performed By: #### 5 7021-8, 4537-7 ####[facility] [id number] [place] [address] [place] Basophils/100 WBC (Bld) 0.8 % Normal [facility] Comment on above: Order Comment: Speci men Type: BLOOD SPECIMENOrdering Facility: [facility] Address: [address] Performed By: #### 5 7021-8, 4536-7 ####[facility] [id number] [place] [address] [place] Differential cell count method Nom (Bld) Auto Normal [facility] Comment on above: Order Comment: Speci men Type: BLOOD SPECIMENOrdering Facility: [facility] Address: [address] [address] Performed By: #### 5 7021-8, 7 ####[facility] [id number] [place] [address] [place] Eosinophils (Bld) [#/Vol] 0.17 10*3/uL Normal <0.46 [facility] Comment on above: Order Comment: Speci men Type: BLOOD SPECIMENOrdering Facility: [facility] Address: [address] [place], [place] [address] Performed By: #### 5 7021-8, 7 ####[facility] [id number] [address] [place] Eosinophils/100 WBC (Bld) 1.9 % Normal [facility] Comment on above: Order Comment: Speci men Type: BLOOD SPECIMENOrdering Facility: [facility] Address: [address] [place], [place] [address] Performed By: #### 5 7021-8, 7 ####[facility] [id number] [place] [address] [place] Erythrocyte distribution width (RBC) [Ratio] 11.8 % Normal 11.5-15.0 [facility] Comment on above: Order Comment: Speci men Type: BLOOD SPECIMENOrdering Facility: [facility] Address: [address] [place], [place] [address] Performed By: #### 5 7021-8, 7 ####[facility] [id number] [place] [address] [place] Hematocrit (Bld) [Volume fraction] 45.8 % Normal 39.0-51.0 [facility] Comment on above: Order Comment: Speci men Type: BLOOD SPECIMENOrdering Facility: [facility] Address: [address] [place], [place] [address] Performed By: #### 5 7021-8, 7 ####[facility] [id number] [place] [address] [place] Hemoglobin (Bld) [Mass/Vol] 15.7 g/dL Normal 13.0-17.0 [facility] Comment on above: Order Comment: Speci men Type: BLOOD SPECIMENOrdering Facility: [facility] Address: [address] [place], [place] [address] Performed By: #### 5 7021-8, 7 ####[facility] [id number] [place] [address] [place] Immature granulocytes (Bld) [#/Vol] 0.06 10*3/uL Normal <0.10 [facility] Comment on above: Order Comment: Speci men Type: BLOOD SPECIMENOrdering Facility: [facility] Address: [address] Performed By: #### 5 7021-8, 7 ####[facility] [id number] [place] [address] [place] Immature granulocytes/100 WBC (Bld) 0.7 % Normal [facility] Comment on above: Order Comment: Speci men Type: BLOOD SPECIMENOrdering Facility: [facility] Address: [address] Performed By: #### 5 7021-8, 4536-7 ####[facility] [id number] [place] [address] [place] Lymphocytes (Bld) [#/Vol] 2.56 10*3/uL Normal 1.00-4.00 [facility] Comment on above: Order Comment: Speci men Type: BLOOD SPECIMENOrdering Facility: [facility] Address: [address] [place] [address] Performed By: #### 5 7021-8, 4537-7 ####[facility] LABIA [id number] [place] [address] [place] Lymphocytes/100 WBC (Bld) 27.9 % Normal [facility] Comment on above: Order Comment: Speci men Type: BLOOD SPECIMENOrdering Facility: [facility] Address: [address] [place] [address] Performed By: #### 5 7021-8, 4537-7 ####[facility] LABIA [id number] [address] [place] MCH (RBC) [Entitic mass] 30.3 pg Normal 26.0-34.0 [facility] Comment on above: Order Comment: Speci men Type: BLOOD SPECIMENOrdering Facility: [facility] Address: [address] [place] [address] Performed By: #### 5 7021-8, 4537-7 ####[facility] [id number] [place] [address] [place] MCHC (RBC) [Mass/Vol] 34.3 g/dL Normal 30.5-36.0 [facility] Comment on above: Order Comment: Speci men Type: BLOOD SPECIMENOrdering Facility: [facility] Address: [address] [place], [place] [address] Performed By: #### 5 7021-8, 4537-7 ####[facility] LABIA [id number] [place] [address] [place] MCV (RBC) [Entitic vol] 88.4 fL Normal 80.0-100.0 [facility] Comment on above: Order Comment: Speci men Type: BLOOD SPECIMENOrdering Facility: [facility] Address: [address] [place], [place] [address] Performed By: #### 5 7021-8, 7 ####[facility] [id number] [place] [address] [place] Monocytes (Bld) [#/Vol] 0.70 10*3/uL Normal <0.87 [facility] Comment on above: Order Comment: Speci men Type: BLOOD SPECIMENOrdering Facility: [facility] Address: [address] [place], [place] [address] Performed By: #### 5 7021-8, 7 ####[facility] [id number] [place] [address] [place] Monocytes/100 WBC (Bld) 7.6 % Normal [facility] Comment on above: Order Comment: Speci men Type: BLOOD SPECIMENOrdering Facility: [facility] Address: [address] [place], [place] [address] Performed By: #### 5 7021-8, 4537-04 ####[facility] [id number] [place] [address] [place] Neutrophils (Bld) [#/Vol] 5.62 10*3/uL Normal 1.45-7.50 [facility] Comment on above: Order Comment: Speci men Type: BLOOD SPECIMENOrdering Facility: [facility] Address: [address] [place], [place] [address] Performed By: #### 5 7021-8, 4537-04 ####[facility] [id number] [place] [address] [place] Neutrophils/100 WBC (Bld) 61.1 % Normal [facility] Comment on above: Order Comment: Speci men Type: BLOOD SPECIMENOrdering Facility: [facility] Address: [address] [place] [address] Performed By: #### 5 7021-8, 4536-7 ####[facility] LABIA [id number] [place] [address] [place] Nucleated RBC (Bld) [#/Vol] 10*3/uL Normal <0.01 [facility] Comment on above: Order Comment: Speci men Type: BLOOD SPECIMENOrdering Facility: [facility] Address: [address] Performed By: #### 5 7021-8, 7 ####[facility] [id number] [place] [address] [place] Nucleated RBC/100 WBC (Bld) [Ratio] 0.0 /100 WBC Normal [facility] Comment on above: Order Comment: Speci men Type: BLOOD SPECIMENOrdering Facility: [facility] Address: [address] Performed By: #### 5 7021-8, 4536-7 ####[facility] [facility] [id number] [place] [address] [place] Platelet mean volume (Bld) [Entitic vol] 11.5 fL Normal 9.0-12.7 [facility] Comment on above: Order Comment: Speci men Type: BLOOD SPECIMENOrdering Facility: [facility] Address: [address] [place] [address] Performed By: #### 5 7021-8, 4536-7 ####[facility] [id number] [place] [address] [place] Platelets (Bld) [#/Vol] 348 10*3/uL Normal 150-400 [facility] Comment on above: Order Comment: Speci men Type: BLOOD SPECIMENOrdering Facility: [facility] Address: [address] [place] [address] Performed By: #### 5 7021-8, 4537-7 ####[facility] [id number] [address] [facility] RBC (Bld) [#/Vol] 5.18 10*6/uL Normal 4.20-6.00 [facility] Comment on above: Order Comment: Speci men Type: BLOOD SPECIMENOrdering Facility: [facility] Address: [address] [place] [address] Performed By: #### 5 7021-8, 4537-7 ####[facility] [id number] [address] [place] WBC (Bld) [#/Vol] 9.18 10*3/uL Normal 3.70-11.00 [facility] Comment on above: Order Comment: Speci men Type: BLOOD SPECIMENOrdering Facility: [facility] Address: [address] [place] [address] Performed By: #### 5 7021-8, 4537-7 ####[facility] [id number] [address] [place] Basophils (Bld) [#/Vol] 0.07 10*3/uL <0.11 k/uL [facility] Basophils/100 WBC (Bld) 0.8 % [facility] Differential cell count method Nom (Bld) Auto [facility] Eosinophils (Bld) [#/Vol] 0.17 10*3/uL <0.46 k/uL [facility] Eosinophils/100 WBC (Bld) 1.9 % [facility] Erythrocyte distribution width (RBC) [Ratio] 11.8 % 11.5 - 15.0 % [facility] Hematocrit (Bld) [Volume fraction] 45.8 % 39.0 - 51.0 % [facility] Hemoglobin (Bld) [Mass/Vol] 15.7 g/dL 13.0 - 17.0 g/dL [facility] Immature granulocytes (Bld) [#/Vol] 0.06 10*3/uL <0.10 k/uL [facility] Immature granulocytes/100 WBC (Bld) 0.7 % [facility] Lymphocytes (Bld) [#/Vol] 2.56 10*3/uL 1.00 - 4.00 k/uL [facility] Lymphocytes/100 WBC (Bld) 27.9 % [facility] MCH (RBC) [Entitic mass] 30.3 pg 26.0 - 34.0 pg [facility] MCHC (RBC) [Mass/Vol] 34.3 g/dL 30.5 - 36.0 g/dL [facility] MCV (RBC) [Entitic vol] 88.4 fL 80.0 - 100.0 fL [facility] Monocytes (Bld) [#/Vol] 0.70 10*3/uL <0.87 k/uL [facility] Monocytes/100 WBC (Bld) 7.6 % [facility] Neutrophils (Bld) [#/Vol] 5.62 10*3/uL 1.45 - 7.50 k/uL [facility] Neutrophils/100 WBC (Bld) 61.1 % [facility] Nucleated RBC (Bld) [#/Vol] <0.01 k/uL [facility] Nucleated RBC/100 WBC (Bld) [Ratio] 0.0 /100 WBC [facility] Platelet mean volume (Bld) [Entitic vol] 11.5 fL 9.0 - 12.7 fL [facility] Platelets (Bld) [#/Vol] 348 10*3/uL 150 - 400 k/uL [facility] RBC (Bld) [#/Vol] 5.18 10*6/uL 4.20 - 6.0 0 m/uL [facility] WBC (Bld) [#/Vol] 9.18 10*3/uL 3.70 - 11. 00 k/uL [facility] CNOVon 10-30-2022 CNOV Office Visit ([facility] ) BHAVESH [id number]) 1975 M Date Time Provider Department 10/30/22 9:00 AM SANTANA HARRIS During your visit today, we recorded the following information about you: Temperature Pulse Blood pressure 95.6 degrees 68/minute 144/96 Santana Harris MD 10/30/2022 10:20 AM Signed ref: Shaikh Moi [address] [facility] [id number] I have been asked to see Bhavesh Cárdenas for Osteoarthritis by Shaikh Moi [address] [facility] [address] HPI: Back pain for most of his lef. On the right side, just above the buttocks. The past six months it is painful picking up 24 pack of water. Leg drags on R a couple of times. Has fallen a couple of times. [place] like it lost control while walking. 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 Hands swell. Has pain worse first [...] Comment: Speci men Type: BLOOD SPECIMENOrdering Facility: [facility] Address: [address] [place] [address] Performed By: #### 1 988-5, 82271-8, 45889-1 ####[facility] [id number] [address] Comprehensive metabolic 2000 panelon 10-30-2022 Albumin [Mass/Vol] 4.5 g/dL 3.9 - 4.9 g/dL [facility] ALP [Catalytic activity/Vol] 115 U/L High 38 - 113 U/L [facility] ALT [Catalytic activity/Vol] 19 U/L 10 - 54 U/L [facility] Anion gap [Moles/Vol] 14 mmol/L 9 - 18 mmol/L [facility] AST [Catalytic activity/Vol] 15 U/L 14 - 40 U/L [facility] Bilirubin [Mass/Vol] 0.5 mg/dL 0.2 - 1 .3 mg/dL [facility] Calcium [Mass/Vol] 9.5 mg/dL 8.5 - 10. 2 mg/dL [facility] Chloride [Moles/Vol] 94 mmol/L Low 97 - 10 5 mmol/L [facility] CO2 [Moles/Vol] 25 mmol/L 22 - 30 mmol/L [facility] Creatinine [Mass/Vol] 0.72 mg/dL Low 0.73 - 1.22 mg/dL [facility] Estimated Glomerular Filtration Rate 113 mL/min/1.73m >=60 mL/min/1.73m [facility] Glucose [Mass/Vol] 372 mg/dL High 74 - 99 mg/dL [facility] Potassium [Moles/Vol] 4.5 mmol/L 3.7 - 5.1 mmol/L [facility] Protein [Mass/Vol] 7.5 g/dL 6.3 - 8.0 g/dL [facility] Sodium [Moles/Vol] 133 mmol/L Low 136 - 144 mmol/L [facility] Urea nitrogen [Mass/Vol] 15 mg/dL 9 - 24 mg/dL [facility] Albumin [Mass/Vol] 4.5 g/dL Normal 3.9-4.9 [facility] Comment on above: Order Comment: Speci men Type: BLOOD SPECIMENOrdering Facility: [facility] Address: [address] [address] Performed By: #### 1 988-5, 53492-4, 34176-5 ####[facility] [id number] [place] [address] [place] ALP [Catalytic activity/Vol] 115 U/L High 38-113 [facility] Comment on above: Order Comment: Speci men Type: BLOOD SPECIMENOrdering Facility: [facility] Address: [address] [address] Performed By: #### 1 988-5, 31614-5, 81093-5 ####[facility] [id number] [address] [place] ALT [Catalytic activity/Vol] 19 U/L Normal 10-54 [facility] Comment on above: Order Comment: Speci men Type: BLOOD SPECIMENOrdering Facility: [facility] Address: [address] [address] Performed By: #### 1 988-5, 71425-3, 27174-0 ####[facility] [id number] [place] [address] [place] Anion gap [Moles/Vol] 14 mmol/L Normal 9-18 [facility] Comment on above: Order Comment: Speci men Type: BLOOD SPECIMENOrdering Facility: [facility] Address: [address] [place] [address] Performed By: #### 1 988-5, 42938-6, 44163-1 ####[facility] [id number] [place] [address] [place] AST [Catalytic activity/Vol] 15 U/L Normal 14-40 [facility] Comment on above: Order Comment: Speci men Type: BLOOD SPECIMENOrdering Facility: [facility] Address: [address] Performed By: #### 1 988-5, 92666-5, 92253-5 ####[facility] [id number] [place] [address] [place] Bilirubin [Mass/Vol] 0.5 mg/dL Normal 0.2-1.3 [facility] Comment on above: Order Comment: Speci men Type: BLOOD SPECIMENOrdering Facility: [facility] Address: [address] [place], [place] [address] Performed By: #### 1 988-5, 01881-7, 11703-8 ####[facility] [id number] [place] [address] [place] Calcium [Mass/Vol] 9.5 mg/dL Normal 8.5-10.2 [facility] Comment on above: Order Comment: Speci men Type: BLOOD SPECIMENOrdering Facility: [facility] Address: [address] [place], [place] [address] Performed By: #### 1 988-5, 23837-3, 74859-9 ####[facility] [id number] [place] [address] [place] Chloride [Moles/Vol] 94 mmol/L Low 97-105 [facility] Comment on above: Order Comment: Speci men Type: BLOOD SPECIMENOrdering Facility: [facility] Address: [address] Performed By: #### 1 988-5, , ####[facility] [id number] [place] [address] [place] CO2 [Moles/Vol] 25 mmol/L Normal 22-30 [facility] Comment on above: Order Comment: Speci men Type: BLOOD SPECIMENOrdering Facility: [facility] Address: [address] [place] [address] Performed By: #### 1 988-5, , ####[facility] [id number] [place] [address] [place] Creatinine [Mass/Vol] 0.72 mg/dL Low 0.73-1.22 [facility] Comment on above: Order Comment: Speci men Type: BLOOD SPECIMENOrdering Facility: [facility] Address: [address] [place] [address] Performed By: #### 1 988-5, , ####[facility] [id number] [place] [address] [place] ESTIMATED GLOMERULAR FILTRATION RATE 113 mL/min/1.73m??? Normal >=60 [facility] Comment on above: Order Comment: Speci men Type: BLOOD SPECIMENOrdering Facility: [facility] Address: [address] [place] [address] Result Comment: [place]ola mated Glomerular Filtration Rate [...] actual GFR. Performed By: #### 1 988-5, 87835-6, ####[facility] [id number] [place] [address] [place] Glucose [Mass/Vol] 372 mg/dL High 74-99 [facility] Comment on above: Order Comment: Speci men Type: BLOOD SPECIMENOrdering Facility: [facility] Address: [address] [place] [address] Result Comment: The [place] [employer] (ADA) provides guidance for cutoff [...] Standards of Medical Care in Diabetes 2016, [place] [employer]. Diabetes Care. 2016.39(Suppl 1). Performed By: #### 1 988-5, 42304-8, 79020-5 ####[facility] [id number] [place] [address] [place] Potassium [Moles/Vol] 4.5 mmol/L Normal 3.7-5.1 [facility] Comment on above: Order Comment: Speci men Type: BLOOD SPECIMENOrdering Facility: [facility] Address: [address] [place], [place] [address] Performed By: #### 1 988-5, 06771-8, 42395-6 ####[facility] [id number] [place] [address] [place] Protein [Mass/Vol] 7.5 g/dL Normal 6.3-8.0 [facility] Comment on above: Order Comment: Speci men Type: BLOOD SPECIMENOrdering Facility: [facility] Address: [address] [place], [place] [address] Performed By: #### 1 988-5, 30166-4, 13895-1 ####[facility] [id number] [place] [address] [place] Sodium [Moles/Vol] 133 mmol/L Low 136-144 [facility] Comment on above: Order Comment: Speci men Type: BLOOD SPECIMENOrdering Facility: [facility] Address: [address] [place] [address] Performed By: #### 1 988-5, 68157-1, 72384-2 ####[facility] [id number] [place] [address] [place] Urea nitrogen [Mass/Vol] 15 mg/dL Normal 9-24 [facility] Comment on above: Order Comment: Speci men Type: BLOOD SPECIMENOrdering Facility: [facility] Address: [address] [place] [address] Performed By: #### 1 988-5, 45247-7, 04650-3 ####[facility] [id number] [address] [place] Cyclic citrullinated peptide IgG Qnon 10-30-2022 CCP ANTIBODY IGG QUALITATIVE Negative Normal Negative [facility] Comment on above: Order Comment: Speci men Type: BLOOD SPECIMENOrdering Facility: [facility] Address: [address] [place] [address] Performed By: #### 3 3935-8 ####[facility] [id number] [place] [address] [place] ESR Westergren method (Bld) [Velocity]on 10-30-2022 ESR (Bld) [Velocity] 8 mm/h Normal 0-15 [facility] Comment on above: Order Comment: Speci men Type: BLOOD SPECIMENOrdering Facility: [facility] Address: [address] [place] [address] Performed By: #### 5 7021-8, 4537-7 ####[facility] [id number] [address] [place] No Panel Informationon 10-30 [facility] RHEUMATOID FACTOR BLon 10-30 Rheumatoid factor Qn <16 IU/mL [facility] Rheumatoid fact SerPl-aCncon 10-30-2022 Rheumatoid factor Qn [IU]/mL Normal <16 [facility] Comment on above: Order Comment: Speci men Type: BLOOD SPECIMENOrdering Facility: [facility] Address: [address] [place] [address] Performed By: #### 1 988-5, 75626-3, 48977-9 ####[facility] [id number] [address] OF [facility] Urinalysis complete panel (U )on 10-30-2022 Bilirubin Ql (U) Negative Negative [facility] Clarity (Unsp spec) Clear Clear [facility] Color (U) Light Yellow Yellow [facility] Epithelial cells LM.HPF (Urine sed) [#/Area] Few [facility] Glucose Test strip (U) [Mass/Vol] 4+ Abnormal Trace, Negative [facility] Hemoglobin Ql (U) Negative Negative, Trace [facility] Ketones Ql (U) 1+ Abnormal Trace, Negative [facility] Leukocyte esterase Test strip Ql (U) Negative Negative, 25 Onesimo/mL [facility] Nitrite Ql (U) Negative Negative [facility] pH (U) 5.5 [pH] 5.0 - 8.0 [facility] Protein (U) [Mass/Vol] Trace Trace, Negative [facility] RBC LM.HPF (Urine sed) [#/Area] 0-3 /HPF 0-3 /HPF [facility] Specific gravity (U) [Rel density] 1.041 High 1.005 - 1.030 [facility] Urobilinogen Ql (U) Negative Negative [facility] WBC LM.HPF (Urine sed) [#/Area] 0-5 /HPF 0-5 /HPF [facility] Bilirubin Ql (U) Negative Normal Negative [facility] Comment on above: Order Comment: Speci men Type: URINE SPECIMENOrdering Facility: [facility] Address: [place] [address] Performed By: #### 2 4356-8 ####[facility] [id number] [place] [address] [place] Clarity (Unsp spec) Clear Normal Clear [facility] Comment on above: Order Comment: Speci men Type: URINE SPECIMENOrdering Facility: [facility] Address: [address] [place] [address] Performed By: #### 2 4356-8 ####[facility] [id number] [place] [address] [place] Color (U) Light Yellow Normal Yellow [facility] Comment on above: Order Comment: Speci men Type: URINE SPECIMENOrdering Facility: [facility] Address: [address] [place] [address] Performed By: #### 2 4356-8 ####[facility] [id number] [place] [address] [place] Epithelial cells LM.HPF (Urine sed) [#/Area] Few Normal [facility] Comment on above: Order Comment: Speci men Type: URINE SPECIMENOrdering Facility: [facility] Address: [address] [place] [address] Performed By: #### 2 4356-8 ####[facility] [id number] [place] [address] [place] Glucose Test strip (U) [Mass/Vol] 4+ Abnormal Trace, Negative [facility] Comment on above: Order Comment: Speci men Type: URINE SPECIMENOrdering Facility: [facility] Address: [address] [place] [address] Performed By: #### 2 4356-8 ####[facility] [id number] [place] [address] [place] Hemoglobin Ql (U) Negative Normal Negative, Trace [facility] Comment on above: Order Comment: Speci men Type: URINE SPECIMENOrdering Facility: [facility] Address: [address] [place] [address] Performed By: #### 2 4356-8 ####[facility] [id number] [place] [address] [place] [facility] Ketones Ql (U) 1+ Abnormal Trace, Negative [facility] Comment on above: Order Comment: Speci men Type: URINE SPECIMENOrdering Facility: [facility] Address: [address] [place] [address] Performed By: #### 2 4356-8 ####[facility] [id number] [place] [address] [place] Leukocyte esterase Test strip Ql (U) Negative Normal Negative, 25 Onesimo/mL [facility] Comment on above: Order Comment: Speci men Type: URINE SPECIMENOrdering Facility: [facility] Address: [address] [place] [address] Performed By: #### 2 4356-8 ####[facility] [id number] [place] [address] [place] Nitrite Ql (U) Negative Normal Negative [facility] Comment on above: Order Comment: Speci men Type: URINE SPECIMENOrdering Facility: [facility] Address: [address] [place] [address] Performed By: #### 2 4356-8 ####[facility] [id number] [place] [address] [place] pH (U) 5.5 [pH] Normal 5.0-8.0 [facility] Comment on above: Order Comment: Speci men Type: URINE SPECIMENOrdering Facility: [facility] Address: [address] [place] [address] Performed By: #### 2 4356-8 ####[facility] [id number] [place] [address] [place] Protein (U) [Mass/Vol] Trace Normal Trace, Negative [facility] Comment on above: Order Comment: Speci men Type: URINE SPECIMENOrdering Facility: [facility] Address: [address] [place] [address] Performed By: #### 2 4356-8 ####[facility] [id number] [place] [address] [place] RBC LM.HPF (Urine sed) [#/Area] 0-3 /HPF Normal 0-3 /HPF [facility] Comment on above: Order Comment: Speci men Type: URINE SPECIMENOrdering Facility: [facility] Address: [address] [place] [address] Performed By: #### 2 4356-8 ####[facility] [id number] [place] [address] [place] Specific gravity (U) [Rel density] 1.041 High 1.005-1.030 [facility] Comment on above: Order Comment: Speci men Type: URINE SPECIMENOrdering Facility: [facility] Address: [address] [place] [address] Performed By: #### 2 4356-8 ####[facility] [id number] [place] [address] [place] Urobilinogen Ql (U) Negative Normal Negative [facility] Comment on above: Order Comment: Speci men Type: URINE SPECIMENOrdering Facility: [facility] Address: [address] [place], [place] [address] Performed By: #### 2 4356-8 ####[facility] [id number] [place] [address] [place] WBC LM.HPF (Urine sed) [#/Area] 0-5 /HPF Normal 0-5 /HPF [facility] Comment on above: Order Comment: Speci men Type: URINE SPECIMENOrdering Facility: [facility] Address: [address] [place], [place] [address] Performed By: #### 2 4356-8 ####[facility] [id number] [address] [address] [place] XR HAND/WRIST SURVEY [...] IMPRESSION: No radiographic findings of inflammatory arthropathy. Rn Integrity: PSCB Transcribe Date/Time: Oct 30 2022 10:39A [...] Comment: Speci men Type: BLOOD SPECIMENOrdering Facility: [facility] Address: [address] [place] [address] Performed By: #### 3 3935-8 ####[facility] [id number] [address] [address] [place] CNOVon 10-19-2022 CNOV Office Visit ([facility] ) BHAVESH CÁRDENAS ([id number]) 1975 M Date Time Provider Department 10/19/22 [...] 09-28-2022 XR hip RT min 2V(w/wo pelvis)* [facility] [employer] Other XR hip RT min 2V(w/wo pelvis)* [facility] [place] [employer] Other XR hip RT min 2V(w/wo pelvis)* [address] [facility] [employer] Other XR hip RT min 2V(w/wo pelvis)* [place] [address] [employer] Other XR hip RT min 2V(w/wo pelvis)* XRay Report [employer] Other XR hip RT min 2V(w/wo pelvis)* Signed [employer] Other XR hip RT min 2V(w/wo pelvis)* Patient: Bhavesh Cárdenas MR#: [id number] [employer] Other XR hip RT min 2V(w/wo pelvis)* 0680 [employer] Other XR hip RT min 2V(w/wo pelvis)* : 1975 Acct:[id number] [employer] Other XR hip RT min 2V(w/wo pelvis)* Age/Sex: 46 / M ADM Date: 09/28/22 [employer] Other XR hip RT min 2V(w/wo pelvis)* Loc: [facility]XD Room: Type: REG [facility] [employer] Other XR hip RT min 2V(w/wo pelvis)* Attending Dr: Milton Valentine II, MD [employer] Other XR hip RT min 2V(w/wo pelvis)* Copies to: Milton Valentine MD [employer] Other XR hip RT min 2V(w/wo pelvis)* Ordering Provider: Milton Valentine MD [employer] Other XR hip RT min 2V(w/wo pelvis)* Date of Service: 09/28/22 [employer] Other XR hip RT min 2V(w/wo pelvis)* XR/XR hip RT min 2V(w/wo pelvis)*: Right hip pain [employer] Other XR hip RT min 2V(w/wo pelvis)* RIGHT HIP - 2 views: [employer] Other XR hip RT min 2V(w/wo pelvis)* CLINICAL HISTORY: Right groin pain for the past 6 months. No injury. [employer] Other XR hip RT min 2V(w/wo pelvis)* COMPARISON: None [employer] Other XR hip RT min 2V(w/wo pelvis)* AP view the pelvis and and crosstable lateral views of the right hip were obtained. There is no [employer] Other XR hip RT min 2V(w/wo pelvis)* evidence of fracture or dislocation. The hip joint spaces are symmetric. No prominent hypertrophy [employer] Other XR hip RT min 2V(w/wo pelvis)* is seen. There are no significant soft tissue abnormalities. [employer] Other XR hip RT min 2V(w/wo pelvis)* XR/XR hip RT min 2V(w/wo pelvis)* [employer] Other XR hip RT min 2V(w/wo pelvis)* IMPRESSION: [employer] Other XR hip RT min 2V(w/wo pelvis)* NO ACUTE BONY FINDINGS. [employer] Other XR hip RT min 2V(w/wo pelvis)* Impression dictated by: Polina Cabrera M.D.09/28/2022 2:28 PM [employer] Other XR hip RT min 2V(w/wo pelvis)* Dictation Location: [facility] [employer] Other XR hip RT min 2V(w/wo pelvis)* Transcribed By: [facility] 09/28/22 [facility]8 [employer] Other XR hip RT min 2V(w/wo pelvis)* Dictated By: Polina Cabrera MD 09/28/22 1426 [employer] Other XR hip RT min 2V(w/wo pelvis)* Signed By: [employer] Other XR hip RT min 2V(w/wo pelvis)* 09/28/22 1425 [employer] Other MRI LSPINE WO CONon 08-18-20 MRI [...] by: DIANA GUZMÁN Date: 2022-08-18 16:57 Normal [facility] XR LSPINE 2_3 VIEWSon 2021 [...] by: WASHINGTON DURAN Date: 2022-08-10 18:50 Normal [facility] Vital Signs Date Time Vital Sign Value Performing Clinician Facility 04-06-2025 10:07-0400 Body mass index (BMI) [Ratio] 34.91 kg/m2 Jami Small [employer] Work Phone: [facility] 04-06-2025 10:07-0400 Body temperature 98.1 [degF] Jami Small [employer] TECH[employer]ICIAN Work Phone: [facility] 04-06-2025 10:07-0400 Body weight 92.26 kg Jami Small [employer] TECHNICIAN Work Phone: [facility] 04-06-2025 10:07-0400 Diastolic blood pressure 70 mm[Hg] Jami Small [employer] TECHNICIAN Work Phone: [facility] 04-06-2025 10:07-0400 Heart rate 73 /min Jami Small [employer] TECHNICIAN Work Phone: [facility] 04-06-2025 10:07-0400 Respiratory rate 18 /min Jami Lilianaholz [employer] TECH[employer]ICIAN Work Phone: [facility] 04-06-2025 10:07-0400 SaO2% (BldA) [Mass fraction] 96 % Jami Katehholz [employer] TECH[employer]ICIAN Work Phone: [facility] 04-06-2025 10:07-0400 Systolic blood pressure 106 mm[Hg] Jami Aichholz [employer] TECHNICIAN Work Phone: [facility] 02-23-2025 14:06-0400 Body mass index (BMI) [Ratio] 37.14 kg/m2 Jami Aichholz [employer] TECH[employer]ICIAN Work Phone: [facility] 02-23-2025 14:06-0400 Body temperature 98.29 [degF] Jami Katehholz [employer] TECHNICIAN Work Phone: [facility] 02-23-2025 14:06-0400 Body weight 98.16 kg Jami Katehholz AVIATION ELECTRONICS TECHNICIAN Work Phone: [facility] 02-23-2025 14:06-0400 Diastolic blood pressure 88 mm[Hg] Jami Aichholz AVIATION ELECTRONICS TECHNICIAN Work Phone: [facility] 02-23-2025 14:06-0400 Heart rate 73 /min Jami Aichholz AVIATION ELECTRONICS TECHNICIAN Work Phone: [facility] 02-23-2025 14:06-0400 Respiratory rate 19 /min Jami Aichholz AVIATION ELECTRONICS TECHNICIAN Work Phone: [facility] 02-23-2025 14:06-0400 SaO2% (BldA) [Mass fraction] 93 % Jami Aichholz AVIATION ELECTRONICS TECHNICIAN Work Phone: [facility] 02-23-2025 14:06-0400 Systolic blood pressure 124 mm[Hg] Jami Aichholz AVIATION ELECTRONICS TECHNICIAN Work Phone: [facility] 11-26-2024 08:31-0500 Body height 162.6 cm Denis Dunlap AVIATION ELECTRONICS TECHNICIAN Work Phone: [facility] 11-26-2024 08:31-0500 Body mass index (BMI) [Ratio] 36.9 kg/m2 Denis Dunlap AVIATION ELECTRONICS TECHNICIAN Work Phone: [facility] 11-26-2024 08:31-0500 Body temperature 98.4 [degF] Denis Dunlap AVIATION ELECTRONICS TECHNICIAN Work Phone: [facility] 11-26-2024 08:31-0500 Body weight 97.52 kg Denis Dunlap AVIATION ELECTRONICS TECHNICIAN Work Phone: [facility] 11-26-2024 08:31-0500 Diastolic blood pressure 78 mm[Hg] Denis Dunlap AVIATION ELECTRONICS TECHNICIAN Work Phone: [facility] 11-26-2024 08:31-0500 Heart rate 63 /min Denis Dunlap AVIATION ELECTRONICS TECHNICIAN Work Phone: [facility] 11-26-2024 08:31-0500 Respiratory rate 16 /min Denis Dunlap AVIATION ELECTRONICS TECHNICIAN Work Phone: [facility] 11-26-2024 08:31-0500 SaO2% (BldA) [Mass fraction] 98 % Denis Dunlap AVIATION ELECTRONICS TECHNICIAN Work Phone: [facility] 11-26-2024 08:31-0500 Systolic blood pressure 110 mm[Hg] Denis Dunlap AVIATION ELECTRONICS TECHNICIAN Work Phone: [facility] 09-01-2024 10:35-0500 Body temperature 98.06 [degF] [facility] [place] 09-01-2024 10:35-0500 Diastolic blood pressure 92 mm[Hg] [facility] [place] 09-01-2024 10:35-0500 Heart rate 83 /min [facility] [place] 09-01-2024 10:35-0500 Respiratory rate 16 /min [facility] [place] 09-01-2024 10:35-0500 SaO2% (BldA) [Mass fraction] 98 % [facility] [place] 09-01-2024 10:35-0500 Systolic blood pressure 149 mm[Hg] [facility] [place] 08-26-2024 14:26-0500 Body height 162.6 cm Denis Dunlap AVIATION ELECTRONICS TECHNICIAN Work Phone: [facility] 08-26-2024 14:26-0500 Body mass index (BMI) [Ratio] 39.99 kg/m2 Denis Dunlap AVIATION ELECTRONICS TECHNICIAN Work Phone: [facility] 08-26-2024 14:26-0500 Body temperature 97.7 [degF] Denis Dunlap AVIATION ELECTRONICS TECHNICIAN Work Phone: [facility] 08-26-2024 14:26-0500 Body weight 105.69 kg Denis Dunlap AVIATION ELECTRONICS TECHNICIAN Work Phone: [facility] 08-26-2024 14:26-0500 Diastolic blood pressure 76 mm[Hg] Denis Dunlap AVIATION ELECTRONICS TECHNICIAN Work Phone: [facility] 08-26-2024 14:26-0500 Heart rate 67 /min Denis Dunlap AVIATION ELECTRONICS TECHNICIAN Work Phone: [facility] 08-26-2024 14:26-0500 Respiratory rate 16 /min Denis Dunlap AVIATION ELECTRONICS TECHNICIAN Work Phone: [facility] 08-26-2024 14:26-0500 SaO2% (BldA) [Mass fraction] 96 % Denis Dunlap AVIATION ELECTRONICS TECHNICIAN Work Phone: [facility] 08-26-2024 14:26-0500 Systolic blood pressure 146 mm[Hg] Denis Dunlap AVIATION ELECTRONICS TECHNICIAN Work Phone: [facility] 07-22-2024 15:29-0400 Body height 162.6 cm Denis Dunlpa AVIATION ELECTRONICS TECHNICIAN Work Phone: [facility] 07-22-2024 15:29-0400 Body mass index (BMI) [Ratio] 40.37 kg/m2 Denis Dunlap AVIATION ELECTRONICS TECHNICIAN Work Phone: [facility] 07-22-2024 15:29-0400 Body temperature 98.71 [degF] Denis Dunlap AVIATION ELECTRONICS TECHNICIAN Work Phone: [facility] 07-22-2024 15:29-0400 Body weight 106.69 kg Denis Dunlap AVIATION ELECTRONICS TECHNICIAN Work Phone: [facility] 07-22-2024 15:29-0400 Diastolic blood pressure 88 mm[Hg] Denis Dunlap AVIATION ELECTRONICS TECHNICIAN Work Phone: [facility] 07-22-2024 15:29-0400 Heart rate 75 /min Denis Dunlap AVIATION ELECTRONICS TECHNICIAN Work Phone: [facility] 07-22-2024 15:29-0400 Respiratory rate 18 /min Denis Dunlap AVIATION ELECTRONICS TECHNICIAN Work Phone: [facility] 07-22-2024 15:29-0400 SaO2% (BldA) [Mass fraction] 96 % Denis Dunlap AVIATION ELECTRONICS TECHNICIAN Work Phone: [facility] 07-22-2024 15:29-0400 Systolic blood pressure 140 mm[Hg] Denis Dunlap AVIATION ELECTRONICS TECHNICIAN Work Phone: [facility] 06-26-2024 10:55-0400 Body height 162.6 cm Denis Dunlap AVIATION ELECTRONICS TECHNICIAN Work Phone: [facility] 06-26-2024 10:55-0400 Body mass index (BMI) [Ratio] 40.17 kg/m2 Denis Dunlap AVIATION ELECTRONICS TECHNICIAN Work Phone: [facility] 06-26-2024 10:55-0400 Body temperature 97.7 [degF] Denis Dunlap AVIATION ELECTRONICS TECHNICIAN Work Phone: [facility] 06-26-2024 10:55-0400 Body weight 106.14 kg Denis Dunlap AVIATION ELECTRONICS TECHNICIAN Work Phone: [facility] 06-26-2024 10:55-0400 Diastolic blood pressure 70 mm[Hg] Denis Dunlap AVIATION ELECTRONICS TECHNICIAN Work Phone: [facility] 06-26-2024 10:55-0400 Heart rate 89 /min Denis Dunlap AVIATION ELECTRONICS TECHNICIAN Work Phone: [facility] 06-26-2024 10:55-0400 SaO2% (BldA) [Mass fraction] 97 % Denis Burkettzpatrick AVIATION ELECTRONICS TECHNICIAN Work Phone: [facility] 06-26-2024 10:55-0400 Systolic blood pressure 138 mm[Hg] Denis Dunlap AVIATION ELECTRONICS TECHNICIAN Work Phone: [facility] 06-11-2024 12:46-0400 Body height 162.6 cm Annie Negro PA Work Phone: [facility] 06-11-2024 12:46-0400 Body mass index (BMI) [Ratio] 39.99 kg/m2 Annie Negro PA Work Phone: [facility] 06-11-2024 12:46-0400 Body weight 105.69 kg Annie Negro PA Work Phone: [facility] 06-11-2024 12:46-0400 Diastolic blood pressure 74 mm[Hg] Annie Negro PA Work Phone: [facility] 06-11-2024 12:46-0400 Heart rate 76 /min Annie Negro PA Work Phone: [facility] 06-11-2024 12:46-0400 Respiratory rate 16 /min Annie Negro PA Work Phone: [facility] 06-11-2024 12:46-0400 SaO2% (BldA) [Mass fraction] 96 % Annie Negro PA Work Phone: [facility] 06-11-2024 12:46-0400 Systolic blood pressure 114 mm[Hg] Annie Negro PA Work Phone: [facility] 05-27-2024 10:29-0400 Body height 162.6 cm Denis Dunlap AVIATION ELECTRONICS TECHNICIAN Work Phone: [facility] 05-27-2024 10:29-0400 Body mass index (BMI) [Ratio] 38.96 kg/m2 Denis Dunlap AVIATION ELECTRONICS TECHNICIAN Work Phone: [facility] 05-27-2024 10:29-0400 Body temperature 98.49 [degF] Denis Dunlap AVIATION ELECTRONICS TECHNICIAN Work Phone: [facility] 05-27-2024 10:29-0400 Body weight 102.97 kg Denis Dunlap AVIATION ELECTRONICS TECHNICIAN Work Phone: [facility] 05-27-2024 10:29-0400 Diastolic blood pressure 84 mm[Hg] Denis Dunlap AVIATION ELECTRONICS TECHNICIAN Work Phone: [facility] 05-27-2024 10:29-0400 Heart rate 79 /min Denis Dunlap AVIATION ELECTRONICS TECHNICIAN Work Phone: [facility] Comment on above: 96% O2 05-27-2024 10:29-0400 Systolic blood pressure 134 mm[Hg] Denis Dunlap AVIATION ELECTRONICS TECHNICIAN Work Phone: [facility] 11-19-2023 14:55-0500 Body height 162.6 cm Shaikh Moi GREEN Work Phone: [facility] 11-19-2023 14:55-0500 Body mass index (BMI) [Ratio] 41.2 kg/m2 Shaikh Moi GREEN Work Phone: [facility] 11-19-2023 14:55-0500 Body temperature 98.4 [degF] Shaikh Moi GREEN Work Phone: [facility] 11-19-2023 14:55-0500 Body weight 108.86 kg Shaikh Moi GREEN Work Phone: [facility] 11-19-2023 14:55-0500 Diastolic blood pressure 90 mm[Hg] Shaikh Moi GREEN Work Phone: [facility] 11-19-2023 14:55-0500 Heart rate 74 /min Shaikh Moi GREEN Work Phone: [facility] 11-19-2023 14:55-0500 SaO2% (BldA) [Mass fraction] 98 % Shaikh Moi GREEN Work Phone: [facility] 11-19-2023 14:55-0500 Systolic blood pressure 140 mm[Hg] Shaikh Moi GREEN Work Phone: [facility] 09-13-2023 14:40-0500 Body height 163.83 cm Francis Barr Other [employer] Other 09-13-2023 14:40-0500 Body mass index (BMI) [Ratio] 40.39 kg/m2 Francis Barr Other [employer] Other 09-13-2023 14:40-0500 Body weight 108.41 kg Francis Barr Other [employer] Other 08-24-2023 14:24-0500 Body temperature 98.9 [degF] MD Shaikh Prater Work Phone: [facility] 08-24-2023 14:24-0500 Diastolic blood pressure 80 mm[Hg] MD Shaikh Prater Work Phone: [facility] 08-24-2023 14:24-0500 Heart rate 84 /min MD Shaikh Prater Work Phone: [facility] 08-24-2023 14:24-0500 Respiratory rate 20 /min MD Shaikh Prater Work Phone: [facility] 08-24-2023 14:24-0500 SaO2% (BldA) [Mass fraction] 96 % MD Shaikh Prater Work Phone: [facility] 08-24-2023 14:24-0500 Systolic blood pressure 168 mm[Hg] MD Shaikh Prater Work Phone: [facility] 08-24-2023 14:22-0500 Body height 162.56 cm MD Shaikh Prater Work Phone: [facility] 08-24-2023 14:22-0500 Body weight 109.1 kg MD Shaikh Prater Work Phone: [facility] 08-02-2023 14:05-0400 Body height 163.83 cm Carmen Washington Other [employer] Other 08-02-2023 14:05-0400 Body mass index (BMI) [Ratio] 40.39 kg/m2 Carmen Washington Other [employer] Other 08-02-2023 14:05-0400 Body temperature 97.7 [degF] Carmen Washington Other [employer] Other 08-02-2023 14:05-0400 Body weight 108.41 kg Carmen Washington Other [employer] Other 08-02-2023 14:05-0400 Diastolic blood pressure 76 mm[Hg] Carmen Washington Other [employer] Other 08-02-2023 14:05-0400 Respiratory rate 18 /min Carmen Washington Other [employer] Other 08-02-2023 14:05-0400 SaO2% (BldA) [Mass fraction] 98 % Carmen Chapmanmesha Other [facility] [employer] Other 08-02-2023 14:05-0400 Systolic blood pressure 120 mm[Hg] Carmen Chapmanmesha Other [facility] [employer] Other 01-27-2023 10:40-0400 Body height 162.56 cm OUTSOLE CASER-BC Kristina Bullimore Work Phone: [facility] 01-27-2023 10:40-0400 Body temperature 97.6 [degF] OUTSOLE CASER-BC Kristina Bullimore Work Phone: [facility] 01-27-2023 10:40-0400 Body weight 96 kg OUTSOLE CASER-BC Kristina Bullimore Work Phone: [facility] 01-27-2023 10:40-0400 Diastolic blood pressure 87 mm[Hg] OUTSOLE CASER-BC Kristina Bullimore Work Phone: [facility] 01-27-2023 10:40-0400 Heart rate 86 /min OUTSOLE CASER-BC Kristina Bullimore Work Phone: [facility] 01-27-2023 10:40-0400 Respiratory rate 18 /min OUTSOLE CASER-BC Kristina Bullimore Work Phone: [facility] 01-27-2023 10:40-0400 SaO2% (BldA) [Mass fraction] 97 % OUTSOLE CASER-BC Kristina Bullimore Work Phone: [facility] 01-27-2023 10:40-0400 Systolic blood pressure 143 mm[Hg] OUTSOLE CASER-BC Kristina Bullimore Work Phone: [facility] 11-24-2022 10:01-0500 Body temperature 98.2 [degF] Sp[facility] Main Work Phone: [facility] 11-24-2022 10:01-0500 Diastolic blood pressure 94 mm[Hg] Sp[facility] Main Work Phone: [facility] 11-24-2022 10:01-0500 Heart rate 89 /min [facility] Work Phone: [facility] 11-24-2022 10:01-0500 Respiratory rate 18 /min [facility] Work Phone: [facility] 11-24-2022 10:01-0500 SaO2% (BldA) [Mass fraction] 97 % [facility] Work Phone: [facility] 11-24-2022 10:01-0500 Systolic blood pressure 140 mm[Hg] [facility] Work Phone: [facility] 11-15-2022 14:10-0500 Diastolic blood pressure 87 mm[Hg] Kb Tankha DO Work Phone: [facility] 11-15-2022 14:10-0500 Heart rate 90 /min Kb Tankha DO Work Phone: [facility] 11-15-2022 14:10-0500 Respiratory rate 18 /min Kb Tankha DO Work Phone: [facility] 11-15-2022 14:10-0500 SaO2% (BldA) [Mass fraction] 96 % Kb Tankha DO Work Phone: [facility] 11-15-2022 14:10-0500 Systolic blood pressure 121 mm[Hg] Kb Tankha DO Work Phone: [facility] 10-30-2022 09:31-0500 Body temperature 95.59 [degF] Santana Harris MD Work Phone: [facility] 10-30-2022 09:31-0500 Diastolic blood pressure 96 mm[Hg] Santana Harris MD Work Phone: [facility] 10-30-2022 09:31-0500 Heart rate 68 /min Santana Harris MD Work Phone: [facility] 10-30-2022 09:31-0500 Systolic blood pressure 144 mm[Hg] Santana Harris MD Work Phone: [facility] 10-19-2022 13:04-0500 Body height 162.6 cm Olayinka Boyd PA-C Work Phone: [facility] 10-19-2022 13:04-0500 Body weight 92.99 kg Olayinka GEORGE-Tere Work Phone: [facility] 10-19-2022 13:04-0500 Diastolic blood pressure 75 mm[Hg] Olayinka GEORGE-C Work Phone: [facility] 10-19-2022 13:04-0500 Heart rate 85 /min Olayinka GEORGE-Tere Work Phone: [facility] 10-19-2022 13:04-0500 SaO2% (BldA) [Mass fraction] 97 % Olayinka Boyd PA-C Work Phone: [facility] 10-19-2022 13:04-0500 Systolic blood pressure 135 mm[Hg] Olayinka GEORGE-Tere Work Phone: [facility] 09-28-2022 12:30-0500 Body height 163.83 cm Milton Valentine II Other [employer] Other 09-28-2022 12:30-0500 Body mass index (BMI) [Ratio] 34.47 kg/m2 Milton Valentine II Other [employer] Other 09-28-2022 12:30-0500 Body weight 92.53 kg Milton Valentine II Other [employer] Other 09-26-2022 11:00-0500 Body height 163.83 cm Francis Barr Other [employer] Other 09-26-2022 11:00-0500 Body mass index (BMI) [Ratio] 34.47 kg/m2 Francis Barr Other [employer] Other 09-26-2022 11:00-0500 Body weight 92.53 kg Francis Barr Other [employer] Other 07-20-2022 10:45-0400 Body height 163.83 cm Nahid Olexa Other [employer] Other 07-20-2022 10:45-0400 Body mass index (BMI) [Ratio] 36.5 kg/m2 Nahid Olexa Other [employer] Other 07-20-2022 10:45-0400 Body weight 97.98 kg Nahid Olexa Other [employer] Other Encounters Encounter Date Encounter Type Care Provider Facility Start: 04-15-2025 End: 04-15-2025 Refill J Luis Cárdenas MD Work Phone: [facility] Comment on above: Uncontrolled type 2 diabetes mellitus with hyperglycemia (HCC) (Primary Dx) Chronic pain syndrom e Start: 04-06-2025 End: 04-06-2025 Bamboo flowsheet Jami Small AVIATION ELECTRONICS TECHNICIAN Work Phone: [facility] Start: 04-06-2025 End: 04-06-2025 Bamboo flowsheet Jami Small AVIATION ELECTRONICS TECHNICIAN Work Phone: [facility] Start: 04-06-2025 End: 04-06-2025 Telephone encounter Jami Small NP Work Phone: [facility] Start: 04-06-2025 End: 04-06-2025 Patient encounter procedure Jami Small NP Work Phone: [facility] Comment on above: Encounter for subseq uent annual wellness visit (AWV) in Medicare patient (Primary Dx); Chronic pain syndrome; Primary hypertension ; Uncontrolled type 2 diabetes mellitus with hyperglycemia (HCC); Prostate cancer screening; Mixed hyperlipidemia ; Iron deficiency anemia secondary to inadequate dietary iron intake; Moderate persistent asthma without complication (HCC); Colon cancer screening Start: 04-06-2025 End: 04-06-2025 ambulatory JAMI AICHHOLZ Not Available Start: 03-31-2025 End: 03-31-2025 Refill Jami Aichholz AVIATION ELECTRONICS TECHNICIAN Work Phone: [facility] Comment on above: Chronic neck and vick k pain Start: 03-19-2025 End: 03-19-2025 Refill Jami Aichholz AVIATION ELECTRONICS TECHNICIAN Work Phone: [facility] Comment on above: Chronic pain syndrom e Type 2 diabetes donis itus without complication, without long-term current use of insulin (HCC) (Primary Dx) Start: 02-23-2025 End: 02-23-2025 Bamboo flowsheet Jami Aichholz AVIATION ELECTRONICS TECHNICIAN Work Phone: [facility] Start: 02-23-2025 End: 02-23-2025 Bamboo flowsheet Jami Aichholz AVIATION ELECTRONICS TECHNICIAN Work Phone: [facility] Start: 02-23-2025 End: 02-23-2025 Office outpatient visit 25 minutes Jami Aichholz AVIATION ELECTRONICS TECHNICIAN Work Phone: [facility] Comment on above: Type 2 diabetes donis itus without complication, without long- term current use of insulin (Primary Dx); Chronic pain syndrome; Primary hypertension (CMS/HCC); Class 3 severe obesity due to excess calories with serious comorbidity and body mass index (BMI) of 40.0 to 44.9 in adult; Moderate episode of recurrent major depressive disorder (CMS/HCC); Chronic neck and back pain Start: 02-23-2025 End: 02-23-2025 ambulatory JAMI AICHHOLZ Not Available Start: 02-16-2025 End: 02-17-2025 Refill Jami Aichholz AVIATION ELECTRONICS TECHNICIAN Work Phone: [facility] Comment on above: Chronic pain syndrom e Start: 02-10-2025 End: 02-11-2025 Refill Jami Aichholz AVIATION ELECTRONICS TECHNICIAN Work Phone: [facility] Comment on above: Type 2 diabetes donis itus without complication, without long- term current use of insulin Moderate persistent asthma without complication (CMS/HCC) Start: 01-16-2025 End: 01-16-2025 Refill Jami Aichholz AVIATION ELECTRONICS TECHNICIAN Work Phone: [facility] Comment on above: Moderate persistent asthma without complication (CMS/HCC) Start: 01-15-2025 End: 01-26-2025 Refill J Luis Cárdenas MD Work Phone: [facility] Comment on above: Chronic neck and vick k pain Chronic pain syndrom e Acute cough (Primary Dx); Primary hypertension (CMS/[facility]); Type 2 diabetes mellitus without complication, with long-term current use of insulin; Uncontrolled type 2 diabetes mellitus with hyperglycemia ([facility]) Start: 01-12-2025 End: 01-12-2025 Refill Jami Aichholz AVIATION ELECTRONICS TECHNICIAN Work Phone: [facility] Comment on above: RLS (restless legs s yndrome) Start: 01-01-2025 End: 01-05-2025 Telephone encounter Nayana Yenner DO Work Phone: [facility] Comment on above: 01/01 pending answer from sleep lab Start: 11-27-2024 ambulatory Bright Mejia [place] [place]: 11-27-2024 End: 01-28-2025 Recurring Bright Mejia [facility] Start: 11-26-2024 End: 11-26-2024 Bamboo flowsheet Denis Dunlap AVIATION ELECTRONICS TECHNICIAN Work Phone: [facility] Start: 11-26-2024 End: 11-26-2024 Bamboo flowsheet Denis Dunlap AVIATION ELECTRONICS TECHNICIAN Work Phone: [facility] Start: 11-26-2024 End: 11-26-2024 Office outpatient visit 15 minutes Denis Dunlap AVIATION ELECTRONICS TECHNICIAN Work Phone: [facility] Comment on above: Primary hypertension (CMS/HCC) (Primary Dx); Moderate persistent asthma without complication (CMS/HCC); Type 2 diabetes mellitus without complication, with long-term current use of insulin (CMS/HCC); Uncontrolled type 2 diabetes mellitus with hyperglycemia (CMS/HCC) Start: 11-26-2024 End: 11-26-2024 ambulatory DENIS DUNLAP Not Available Start: 11-19-2024 End: 11-19-2024 Orders Only Denis Dunlap AVIATION ELECTRONICS TECHNICIAN Work Phone: [facility] Comment on above: Chronic pain syndrom e Start: 11-18-2024 End: 11-18-2024 Orders Only Denis Dunlap AVIATION ELECTRONICS TECHNICIAN Work Phone: [facility] Comment on above: Chronic pain syndrom e Start: 11-14-2024 End: 11-17-2024 Refill Denis Dunlap AVIATION ELECTRONICS TECHNICIAN Work Phone: [facility] Comment on above: Chronic pain syndrom e Start: 10-27-2024 End: 10-28-2024 Refill Denis Dunlap AVIATION ELECTRONICS TECHNICIAN Work Phone: [facility] Comment on above: Chronic neck and vick k pain Start: 10-21-2024 End: 10-21-2024 ambulatory Bright Mejia [place] [place]: 10-21-2024 End: 10-21-2024 Patient encounter procedure Bright Mejia [facility] Start: 10-16-2024 End: 10-16-2024 Refill Denis Dunlap AVIATION ELECTRONICS TECHNICIAN Work Phone: [facility] Comment on above: Chronic pain syndrom e Start: 10-13-2024 End: 10-13-2024 Refill Densi Dunlap AVIATION ELECTRONICS TECHNICIAN Work Phone: [facility] Comment on above: Moderate persistent asthma without complication (CMS/HCC) Start: 09-22-2024 End: 09-22-2024 Refill Denis Dunlap AVIATION ELECTRONICS TECHNICIAN Work Phone: [facility] Comment on above: Type 2 diabetes donis itus without complication, without long- term current use of insulin (CMS/HCC) Start: 09-17-2024 End: 09-17-2024 Refill Denis Goldmank AVIATION ELECTRONICS TECHNICIAN Work Phone: [facility] Comment on above: Chronic pain syndrom e Start: 09-10-2024 End: 09-10-2024 Orders Only Denis Goldmank AVIATION ELECTRONICS TECHNICIAN Work Phone: [facility] Comment on above: Moderate persistent asthma without complication (CMS/HCC) Start: 09-03-2024 End: 09-08-2024 Refill Denis Goldmank AVIATION ELECTRONICS TECHNICIAN Work Phone: [facility] Comment on above: Moderate persistent asthma without complication (CMS/HCC) Start: 09-01-2024 End: 09-01-2024 Emergency department patient visit [facility] Start: 08-26-2024 End: 08-26-2024 Office outpatient visit 15 minutes Denis Dunlap AVIATION ELECTRONICS TECHNICIAN Work Phone: [facility] Comment on above: Type 2 diabetes donis itus without complication, without long- term current use of insulin (CMS/HCC) (Primary Dx); Iron deficiency anemia secondary to inadequate dietary iron intake; Primary hypertension (CMS/HCC) Start: 08-26-2024 End: 08-26-2024 ambulatory DENIS ZUNIGATRICK Not Available Start: 08-26-2024 End: 08-26-2024 Clinisync Result Encounter Denis Goldmank AVIATION ELECTRONICS TECHNICIAN Work Phone: [facility] External Department Unsolicited Start: 08-26-2024 End: 08-26-2024 Clinisync Result Encounter Denis Goldmank AVIATION ELECTRONICS TECHNICIAN Work Phone: [facility] External Department Unsolicited Start: 08-21-2024 End: 08-21-2024 Orders Only Denis Dunlap AVIATION ELECTRONICS TECHNICIAN Work Phone: [facility] Comment on above: Anemia, unspecified type (Primary Dx) Chronic pain syndrom e Start: 08-19-2024 End: 08-19-2024 Clinisync Result Encounter Denis Goldmank AVIATION ELECTRONICS TECHNICIAN Work Phone: [facility] External Department Unsolicited Start: 08-19-2024 End: 08-19-2024 Clinisync Result Encounter Denis Goldmank AVIATION ELECTRONICS TECHNICIAN Work Phone: [facility] External Department Unsolicited Start: 08-18-2024 End: 08-18-2024 Orders Only Denisholley Goldmank AVIATION ELECTRONICS TECHNICIAN Work Phone: [facility] FM Comment on above: Type 2 diabetes donis itus without complication, without long- term current use of insulin (CMS/HCC) Start: 08-06-2024 End: 08-06-2024 Refill Denis Dunlap AVIATION ELECTRONICS TECHNICIAN Work Phone: [facility] Comment on above: Moderate persistent asthma without complication (CMS/HCC) Start: 08-04-2024 End: 08-05-2024 Refill Chiara Dillon MA [facility] Comment on above: Moderate persistent asthma without complication (CMS/HCC) Type 2 diabetes donis itus without complication, with long-term current use of insulin (CMS/HCC); Uncontrolled type 2 diabetes mellitus with hyperglycemia (CMS/HCC); Moderate persistent asthma without complication (CMS/HCC) Start: 07-22-2024 End: 07-22-2024 Office outpatient visit 15 minutes Denis Dunlap AVIATION ELECTRONICS TECHNICIAN Work Phone: [facility] Comment on above: Moderate persistent asthma without complication (CMS/HCC) (Primary Dx); Chronic neck and back pain; Primary hypertension (CMS/HCC); Type 2 diabetes mellitus without complication, with long-term current use of insulin (CMS/HCC); Uncontrolled type 2 diabetes mellitus with hyperglycemia (CMS/HCC); Mixed hyperlipidemia ([facility]); Class 3 severe obesity due to excess calories with serious comorbidity and body mass index (BMI) of 40.0 to 44.9 in adult ([facility]) Start: 07-22-2024 End: 07-22-2024 ambulatory DENIS DUNLAP Not Available Start: 07-22-2024 End: 07-22-2024 Bamboo flowsheet Denis Burkettzpatrick AVIATION ELECTRONICS TECHNICIAN Work Phone: [facility] Start: 07-22-2024 End: 07-22-2024 Bamboo flowsheet Denis Goldmank AVIATION ELECTRONICS TECHNICIAN Work Phone: [facility] Start: 07-21-2024 End: 07-28-2024 Refill Gali Chatterjee [facility] FM Comment on above: Chronic neck and vick k pain; Primary hypertension ([facility]) Start: 07-15-2024 End: 07-15-2024 Orders Only Denis Burkettzpatrick AVIATION ELECTRONICS TECHNICIAN Work Phone: [facility] Comment on above: Chronic pain syndrom e (Primary Dx); RLS (restless legs syndrome) Start: 07-08-2024 End: 07-14-2024 Refill J Luis Cárdenas MD Work Phone: [facility] Comment on above: Metabolic syndrome X (Primary Dx); Uncontrolled type 2 diabetes mellitus with hyperglycemia ([facility]); Class 3 severe obesity due to excess calories with serious comorbidity and body mass index (BMI) of 40.0 to 44.9 in adult ([facility]) Uncontrolled type 2 diabetes mellitus with hyperglycemia ([facility]) Start: 06-27-2024 End: 06-27-2024 Clinisync Result Encounter Densi Dunlap AVIATION ELECTRONICS TECHNICIAN Work Phone: [facility] External Department Unsolicited Start: 06-27-2024 End: 06-27-2024 Clinisync Result Encounter Denis Dunlap AVIATION ELECTRONICS TECHNICIAN Work Phone: [facility] External Department Unsolicited Start: 06-26-2024 End: 06-26-2024 Bamboo flowsheet Denis Goldmank AVIATION ELECTRONICS TECHNICIAN Work Phone: [facility] Start: 06-26-2024 End: 06-26-2024 Bamboo flowsheet Denis Goldmank AVIATION ELECTRONICS TECHNICIAN Work Phone: [facility] Start: 06-26-2024 End: 06-26-2024 Office outpatient visit 15 minutes Denis Dunlap AVIATION ELECTRONICS TECHNICIAN Work Phone: [facility] Comment on above: Type 2 diabetes donis itus without complication, with long-term current use of insulin (CMS/HCC) (Primary Dx); Uncontrolled type 2 diabetes mellitus with hyperglycemia (CMS/HCC); Lumbar radiculopathy Start: 06-26-2024 End: 06-26-2024 ambulatory DENIS DUNLAP Not Available Start: 06-24-2024 End: 06-24-2024 Refill Shakeel Vargas MA [facility] Comment on above: Type 2 diabetes donis itus without complication, without long- term current use of insulin (CMS/HCC) Start: 06-11-2024 End: 06-11-2024 Bamboo flowsheet Annie GEORGE Work Phone: [facility] Start: 06-11-2024 End: 06-11-2024 Bamboo flowsheet Annie GEORGE Work Phone: [facility] Start: 06-11-2024 End: 06-11-2024 ambulatory ANNIE NEGRO Not Available Start: 06-11-2024 End: 06-11-2024 Office outpatient visit 25 minutes Annie GEORGE Work Phone: [facility] Comment on above: Other osteoarthritis of spine, lumbar region (Primary Dx); Lumbar radiculopathy; Paresthesia; Weakness; Muscle spasm Start: 05-28-2024 End: 05-28-2024 Clinisync Result Encounter Shaikh Moi GREEN Work Phone: [facility] External Department Unsolicited Start: 05-28-2024 End: 05-28-2024 Clinisync Result Encounter Shaikh Moi GREEN Work Phone: [facility] External Department Unsolicited Start: 05-27-2024 End: 05-27-2024 Bamboo flowsheet Denis Dunlap AVIATION ELECTRONICS TECHNICIAN Work Phone: [facility] Start: 05-27-2024 End: 05-27-2024 Bamboo flowsheet Denis Zunigatrick AVIATION ELECTRONICS TECHNICIAN Work Phone: [facility] Start: 05-27-2024 End: 05-27-2024 Office outpatient visit 25 minutes Denis Dunlap AVIATION ELECTRONICS TECHNICIAN Work Phone: [facility] Comment on above: Uncontrolled type 2 diabetes mellitus with hyperglycemia (CMS/HCC) (Primary Dx); Primary hypertension (CMS/HCC); Moderate persistent asthma without complication (CMS/HCC); Class 3 severe obesity due to excess calories with serious comorbidity and body mass index (BMI) of 40.0 to 44.9 in adult (CMS/HCC); Mixed hyperlipidemia (CMS/HCC); Encounter for monitoring opioid maintenance therapy; Chronic neck and back pain; Chronic pain syndrome Start: 05-27-2024 End: 05-27-2024 ambulatory DENIS DUNLAP Not Available Start: 05-26-2024 End: 05-26-2024 Refill Denis Dunlap AVIATION ELECTRONICS TECHNICIAN Work Phone: [facility] Comment on above: Uncontrolled type 2 diabetes mellitus with hyperglycemia (CMS/HCC) Start: 04-21-2024 End: 04-21-2024 ambulatory SHAIKH MOI Not Available Start: 04-16-2024 ambulatory ANANT CORTEZ [facility] Start: 03-05-2024 ambulatory BHAVESH JAMES [facility] Start: 03-05-2024 Encounter for other general examination BHAVESH JAMES [facility] Start: 02-19-2024 End: 02-19-2024 ambulatory [facility] Start: 02-19-2024 End: 02-19-2024 ambulatory [facility] Start: 11-30-2023 End: 11-30-2023 ambulatory [facility] Start: 11-21-2023 End: 11-21-2023 ambulatory [facility] Start: 11-19-2023 End: 11-19-2023 Office outpatient visit 25 minutes Shaikh Moi GREEN Work Phone: [facility] Comment on above: Uncontrolled type 2 diabetes mellitus with hyperglycemia (CMS/HCC) (Primary Dx); Chronic neck and back pain; Primary hypertension (CMS/HCC); Low back pain of thoracolumbar region with sciatica Start: 11-19-2023 Alia Prater MD Work Phone: [facility] Start: 11-19-2023 [facility] [employer] Shaikh Moi GREEN Work Phone: [facility] Start: 11-15-2023 Orders Only Shaikh Moi GREEN Work Phone: [facility] Comment on above: Metabolic syndrome X (Primary Dx); Pure hypertriglyceridemia (CMS/HCC) Start: 11-08-2023 Orders Only Shaikh Moi GREEN Work Phone: [facility] Comment on above: Moderate persistent asthma without complication (CMS/HCC) (Primary Dx) Start: 11-05-2023 End: 11-05-2023 ambulatory [facility] Start: 10-29-2023 End: 10-29-2023 ambulatory Francis Barr Other [employer] Other Start: 10-29-2023 Telephone encounter Francis Barr [facility] Neuro[facility] Start: 09-24-2023 End: 09-24-2023 ambulatory Francis Barr Other [employer] Other Start: 09-24-2023 Telephone encounter Francis Barr [facility] Start: 09-13-2023 End: 09-13-2023 [address] [facility] [employer] Other Start: 09-13-2023 Office outpatient vi sit 15 minutes Francis aBrr [facility] Neurosurgery Start: 08-24-2023 End: 08-24-2023 Emergency department patient visit Shaikh Gigijames Facility:[facility] Start: 08-24-2023 End: 08-24-2023 Emergency department patient visit MD Shaikh Prater Work Phone: [facility] Work Phone: Start: 08-02-2023 End: 08-02-2023 ambulatory Carmen [place] Other [facility] [employer] Other Start: 08-02-2023 Office outpatient vi sit 15 minutes Carmen [place] [facility] Start: 07-13-2023 End: 07-13-2023 ambulatory Shaikh Moi Facility:[facility] Start: 07-13-2023 End: 07-13-2023 Patient encounter procedure MD Shaikh Prater Work Phone: [facility]-Physical Therapy [facility] Start: 07-04-2023 Refill Kb Olivo Work Phone: Neurology Pain Comment on above: Refill Request (Traz odone Rx); Refill Request; Refill Request Start: 06-21-2023 End: 06-21-2023 ambulatory Tracy Wu Facility:[facility] Start: 06-21-2023 End: 06-21-2023 ambulatory MD Shaikh Prater Work Phone: [facility] Work Phone: Start: 06-21-2023 End: 06-21-2023 Patient encounter procedure MD Shaikh Prater Work Phone: [facility] [place] Work Phone: Start: 05-21-2023 End: 05-22-2023 ambulatory Terri Abrams MD Facility: [facility] Start: 05-16-2023 End: 05-16-2023 ambulatory Meyer Pamehsanjames Facility:[facility] Start: 05-16-2023 End: 05-16-2023 ambulatory MD Shaikh Prater Work Phone: [facility] Work Phone: Start: 05-16-2023 End: 05-16-2023 Patient encounter procedure MD Shaikh Prater Work Phone: [facility] [place] Work Phone: Start: 04-16-2023 Refill [place] Kathe [...] Start: 02-13-2023 End: 02-13-2023 ambulatory KB TANKHA Facility:[facility] Start: 02-09-2023 Telephone encounter Kb Tank yates DO Work Phone: Pain Recovery Comment on above: Patient Question Start: 02-06-2023 ambulatory Kbwaylon Lorenzo D O Work Phone: Neurology Pain Comment on above: need advice Start: 01-27-2023 End: 01-27-2023 Emergency department patient visit Shaikh Moi Facility: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 Start: 11-28-2022 ambulatory Kb Lorenzo D O Work Phone: Neurology Pain Comment on above: Bhavesh Cárdenas Injec tion schedule Start: 11-24-2022 ambulatory KB LORENZO Facility:[facility] Start: 11-24-2022 End: 11-24-2022 Patient encounter procedure Spine Med Procedure Main Work Phone: [facility] [place] Comment on above: APPOINTMENT CANCELLE D (Primary Dx) Start: 11-15-2022 End: 11-15-2022 ambulatory OLAYINKA BOYD Facility:[facility] Start: 11-15-2022 End: 11-15-2022 Patient encounter procedure Kb Lorenzo DO Work Phone: Neurology Pain Comment on above: Chronic pain syndrom e (Primary Dx); Chronic bilateral low back pain without sciatica; Disturbance of sleep pattern associated with pain; Lumbar spondylosis; Sacroiliitis (HCC) Start: 10-30-2022 End: 10-31-2022 ambulatory SANTANA HARRIS Facility:[facility] Start: 10-30-2022 End: 10-30-2022 Subsequent hospital visit [...] Rocha Facility: Start: 10-19-2022 End: 10-19-2022 ambulatory OLAYINKA BOYD Facility:[facility] Start: 10-19-2022 End: 10-19-2022 Patient encounter procedure Olayinka Boyd PA-C Work Phone: Spine Medicine Comment on above: Chronic bilateral lo w back pain without sciatica (Primary Dx) Start: 10-16-2022 End: 10-16-2022 ambulatory Milton Valentine II Other [employer] Other Start: 10-16-2022 Telephone encounter Milton Valentine II [facility] Start: 09-28-2022 [facility] visit new patient Milton Nicolasrajesh velazquez II [facility] Start: 09-28-2022 End: 09-28-2022 ambulatory MD Carmen Wheatley Work Phone: [facility] Work Phone: Start: 09-28-2022 End: 09-28-2022 Patient encounter procedure MD Carmen Wheatley Work Phone: [facility] Start: 09-26-2022 End: 09-26-2022 ambulatory Francis Barr Other [employer] Other Start: 09-26-2022 Office outpatient ne w 30 minutes Francis Barr [facility] Start: 08-18-2022 End: 08-19-2022 ambulatory SHAIKH Ana PRATER Facility:[facility] Start: 08-14-2022 End: 08-15-2022 ambulatory SHAIKH Ana PRATER Facility:[facility] Start: 08-10-2022 End: 08-11-2022 ambulatory SHAIKH Ana PRATER Facility:[facility] Start: 07-20-2022 End: 07-20-2022 ambulatory Nahid Gu Other [place] [email or web address] Other Start: 07-20-2022 Office outpatient ne w 30 minutes Nahid Brittanie [facility] Start: 07-13-2022 End: 07-13-2022 ambulatory ARCELIA DIAZ . Facility:[facility] Procedures Date Procedure Procedure Detail Performing Clinician Start: 02-23-2025 Hemoglobin glycosyla trinh a1c Jami Aichkarstenz AVIATION ELECTRONICS TECHNICIAN Work Phone: Start: 08-26-2024 [employer] Homa ttany Dunlap AVIATION ELECTRONICS TECHNICIAN Work Phone: Start: 08-19-2024 ALL CBC WITH AUTO DIFF Denis Dunlap AVIATION ELECTRONICS TECHNICIAN Work Phone: Start: 08-19-2024 [facility] CMP (CMP) (FOR [facility] USE) Denis Dunlap AVIATION ELECTRONICS TECHNICIAN Work Phone: Start: 08-19-2024 MLR HEMOGLOBIN A1C Brit holley Dunlap AVIATION ELECTRONICS TECHNICIAN Work Phone: Start: 06-27-2024 [facility] MICROALB CREAT R ATIO RANDOM Denis Dunlap AVIATION ELECTRONICS TECHNICIAN Work Phone: Start: 05-28-2024 ALL CBC WITH AUTO DIFF Shaikh Moi GREEN Work Phone: Start: 08-24-2023 CT of lumbar spine w ithout contrast MD Shaikh Prater Work Phone: Start: 06-21-2023 MR lumbar spine wo con MD Shaikh Prater Work Phone: Start: 05-16-2023 MR thoracic spine wo con MD Shaikh Prater Work Phone: Start: 05-16-2023 MRI of cervical spin e without contrast MD Shaikh Prater Work Phone: Start: 01-27-2023 X-ray of lumbar spin e, four or more views OUTSOLE CASER-BC Kristina Delgado Work Phone: Start: 11-24-2022 Gluc bld gluc mntr d ev cleared fda spec home use [facility] Provider Start: 10-30-2022 Joint survey single view 2 or more joints Santana Harris MD Work Phone: Start: 09-28-2022 Plain X-ray of right hip MD Carmen Wheatley Work Phone: Plan of Treatment Date Care Activity Detail Author Start: 04-07-2027 Glaucoma screening Diabetes: Retinopathy Screening [facility] Start: 04-06-2026 Medicare Annual Wellness (AWV) Medicare Annual Wellness (AWV) [facility] Start: 10-30-2025 DIABETES SCREEN DIABETES SCREEN [facility] Start: 10-30-2025 Diabetes Screening Diabetes Screening [facility] Start: 09-07-2025 Screening for malignant neoplasm of colon [facility] Start: 08-26-2025 Hemoglobin A1c measurement Diabetes: Hemoglobin A1C [facility] Start: 06-27-2025 Urine screening for protein Diabetes: Urine Protein Screening [facility] Start: 06-10-2025 End: 06-10-2025 Patient encounter procedure [facility] Start: 06-09-2025 End: 06-09-2025 Patient encounter procedure 06/09/2025 9:40 AM EDT Office Visit [facility] [address] [place] [id number] Jami Small NP [address] [place] [id number] [facility] Start: 06-08-2025 Influenza vaccination Influenza Vaccine (#1) [facility] Start: 04-06-2025 End: 04-06-2026 CBC W Auto Differential panel - Blood CBC and differential Lab Routine Iron deficiency anemia secondary to inadequate dietary iron intake Expected: 04/06/2025 (Approximate), Expires: 04/06/2026 [facility] Work Phone: Comment on above: Expected: 04/06/2025 (Approximate), Expi res: 04/06/2026 Start: 04-06-2025 End: 04-06-2026 Comprehensive metabolic 2000 panel - Serum or Plasma Comprehensive metabolic panel Lab Routine Primary hypertension Uncontrolled type 2 diabetes mellitus with hyperglycemia (HCC) Mixed hyperlipidemia Expected: 04/06/2025 (Approximate), Expires: 04/06/2026 [facility] Comment on above: Expected: 04/06/2025 (Approximate), Expi res: 04/06/2026 Start: 04-06-2025 End: 04-06-2026 Ferritin [Mass/volume] in Serum or Plasma Ferritin Lab Routine Iron deficiency anemia secondary to inadequate dietary iron intake Expected: 04/06/2025 (Approximate), Expires: 04/06/2026 [facility] Comment on above: Expected: 04/06/2025 (Approximate), Expi res: 04/06/2026 Start: 04-06-2025 End: 04-06-2026 Iron + transferrin + TIBC Iron + transferrin + TIBC Lab Routine Iron deficiency anemia secondary to inadequate dietary iron intake Expected: 04/06/2025 (Approximate), Expires: 04/06/2026 [facility] Comment on above: Expected: 04/06/2025 (Approximate), Expi res: 04/06/2026 Start: 04-06-2025 End: 04-06-2026 Lipid 1996 panel - Serum or Plasma Lipid panel Lab Routine Uncontrolled type 2 diabetes mellitus with hyperglycemia (HCC) Mixed hyperlipidemia Expected: 04/06/2025 (Approximate), Expires: 04/06/2026 [facility] Comment on above: Expected: 04/06/2025 (Approximate), Expi res: 04/06/2026 Start: 04-06-2025 End: 04-06-2026 Microalbumin/Creatinine panel in random Urine Microalbumin / creatinine, urine ratio Lab Routine Primary hypertension Uncontrolled type 2 diabetes mellitus with hyperglycemia (HCC) Expected: 04/06/2025 (Approximate), Expires: 04/06/2026 [facility] Comment on above: Expected: 04/06/2025 (Approximate), Expi res: 04/06/2026 Start: 04-06-2025 End: 04-06-2026 Noninvasive colorectal cancer DNA and occult blood screening [Presence] in Stool Cologuard colon cancer screening Lab Routine Colon cancer screening Expected: 04/06/2025 (Approximate), Expires: 04/06/2026 [facility] Comment on above: Expected: 04/06/2025 (Approximate), Expi res: 04/06/2026 Start: 04-06-2025 End: 04-06-2026 Prostate specific Ag [Mass/volume] in Serum or Plasma PSA Lab Routine Prostate cancer screening Expected: 04/06/2025 (Approximate), Expires: 04/06/2026 [facility] Comment on above: Expected: 04/06/2025 (Approximate), Expi res: 04/06/2026 Start: 04-06-2025 End: 04-06-2026 Urinalysis complete panel - Urine Urinalysis with reflex microscopic (clean catch) Lab Routine Primary hypertension Uncontrolled type 2 diabetes mellitus with hyperglycemia (HCC) Expected: 04/06/2025 (Approximate), Expires: 04/06/2026 [facility] Comment on above: Expected: 04/06/2025 (Approximate), Expi res: 04/06/2026 Start: 04-06-2025 End: 04-06-2025 Patient encounter procedure [facility] Comment on above: Chronic pain syndrome (Primary Dx); Encounter for subsequent annual wellness visit (AWV) in Medicare patient; Primary hypertension ; Uncontrolled type 2 diabetes mellitus with hyperglycemia (HCC); Prostate cancer screening; Mixed hyperlipidemia ; Iron deficiency anemia secondary to inadequate dietary iron intake Start: 02-27-2025 Glaucoma screening Diabetes: Retinopathy Screening [facility] Start: 02-23-2025 End: 02-23-2025 Patient encounter procedure [facility] Comment on above: Chronic pain syndrome (Primary Dx); Primary hypertension (CMS/HCC); Type 2 diabetes mellitus without complication, without long-term current use of insulin; Class 3 severe obesity due to excess calories with serious comorbidity and body mass index (BMI) of 40.0 to 44.9 in adult; Moderate episode of recurrent major depressive disorder (CMS/HCC) Start: 11-26-2024 End: 11-26-2024 Patient encounter procedure [facility] Comment on above: Arrived Start: 11-12-2024 Urine screening for protein Diabetes: Urine Protein Screening [facility] Start: 09-11-2024 End: 09-11-2024 Patient encounter procedure 09/11/2024 8:30 AM EST Office Visit [facility] [address] [place] [phone] Denis Dunlap, AVIATION ELECTRONICS TECHNICIAN [address] [place] [address] [facility] Start: 08-26-2024 End: 08-26-2024 Patient encounter procedure 08/26/2024 2:30 PM EST Office Visit [facility] [address] [place] [address] Denis uDnlap, AVIATION ELECTRONICS TECHNICIAN [address] [place] [address] [facility] Start: 08-21-2024 End: 08-21-2025 Cobalamin (Vitamin B12) [Mass/volume] in Serum or Plasma Vitamin B12 Lab Routine Anemia, unspecified type Expected: 08/21/2024 (Approximate), Expires: 08/21/2025 [facility] Work Phone: Comment on above: Expected: 08/21/2024 (Approximate), Expi res: 08/21/2025 Start: 08-21-2024 End: 08-21-2025 Ferritin [Mass/volume] in Serum or Plasma Ferritin Lab Routine Anemia, unspecified type Expected: 08/21/2024 (Approximate), Expires: 08/21/2025 [facility] Comment on above: Expected: 08/21/2024 (Approximate), Expi res: 08/21/2025 Start: 08-21-2024 End: 08-21-2025 Iron + transferrin + TIBC Iron + transferrin + TIBC Lab Routine Anemia, unspecified type Expected: 08/21/2024 (Approximate), Expires: 08/21/2025 [facility] Comment on above: Expected: 08/21/2024 (Approximate), Expi res: 08/21/2025 Start: 08-21-2024 End: 08-21-2025 Measurement of occult blood in single stool specimen Occult blood x 1, stool Lab Routine Anemia, unspecified type Expected: 08/21/2024 (Approximate), Expires: 08/21/2025 [facility] Comment on above: Expected: 08/21/2024 (Approximate), Expi res: 08/21/2025 Start: 08-18-2024 End: 06-26-2025 CBC W Auto Differential panel - Blood CBC and differential Lab Routine Type 2 diabetes mellitus without complication, with long-term current use of insulin (CMS/HCC) Uncontrolled type 2 diabetes mellitus with hyperglycemia (CMS/HCC) Expected: 08/18/2024 (Approximate), Expires: 06/26/2025 [facility] Comment on above: Expected: 08/18/2024 (Approximate), Expi res: 06/26/2025 Start: 08-18-2024 End: 06-26-2025 Comprehensive metabolic 2000 panel - Serum or Plasma Comprehensive metabolic panel Lab Routine Type 2 diabetes mellitus without complication, with long-term current use of insulin (CMS/HCC) Uncontrolled type 2 diabetes mellitus with hyperglycemia (CMS/HCC) Expected: 08/18/2024 (Approximate), Expires: 06/26/2025 [facility] Comment on above: Expected: 08/18/2024 (Approximate), Expi res: 06/26/2025 Start: 08-18-2024 End: 06-26-2025 Hemoglobin A1c/Hemoglobin.total in Blood Hemoglobin A1c Lab Routine Type 2 diabetes mellitus without complication, with long-term current use of insulin (CMS/HCC) Uncontrolled type 2 diabetes mellitus with hyperglycemia (CMS/HCC) Expected: 08/18/2024 (Approximate), Expires: 06/26/2025 [facility] Comment on above: Expected: 08/18/2024 (Approximate), Expi res: 06/26/2025 Start: 07-22-2024 End: 07-22-2024 Patient encounter procedure [facility] Comment on above: Arrived Start: 07-22-2024 End: 07-22-2025 Lipid 1996 panel - Serum or Plasma Lipid panel Lab Routine Mixed hyperlipidemia (CMS/HCC) Expected: 07/22/2024 (Approximate), Expires: 07/22/2025 [facility] Comment on above: Expected: 07/22/2024 (Approximate), Expi res: 07/22/2025 Start: 07-22-2024 End: 07-22-2025 TSH W/REFLEX TO FT4 TSH W/REFLEX TO FT4 Lab Routine Mixed hyperlipidemia (CMS/HCC) Expected: 07/22/2024 (Approximate), Expires: 07/22/2025 [facility] Work Phone: Comment on above: Expected: 07/22/2024 (Approximate), Expi res: 07/22/2025 Start: 06-26-2024 End: 06-26-2024 Patient encounter procedure [facility] Comment on above: Arrived Start: 06-11-2024 End: 06-11-2024 Patient encounter procedure 06/11/2024 12:40 PM EDT Office Visit [facility] [address] [place] [id number] Annie Negro PA [address] [place], [place] [id number] [facility] Start: 06-08-2024 Influenza vaccination Influenza Vaccine (#1) [facility] Start: 05-27-2024 End: 05-27-2025 Drugs of abuse panel - Urine by Screen method Rapid drug screen, urine Lab Routine Encounter for monitoring opioid maintenance therapy Expected: 05/27/2024 (Approximate), Expires: 05/27/2025 [facility] Work Phone: Comment on above: Expected: 05/27/2024 (Approximate), Expi res: 05/27/2025 Start: 05-27-2024 End: 05-27-2024 Patient encounter procedure [facility] Comment on above: Arrived Start: 05-12-2024 Hemoglobin A1c measurement Diabetes: Hemoglobin A1C [facility] Start: 02-16-2024 DIABETES SCREEN DIABETES SCREEN [facility] Start: 12-17-2023 End: 12-17-2023 Patient encounter procedure 12/17/2023 2:30 PM EDT Office Visit [facility] [address] [place] [id number] Shaikh Prater MD [address] [place] [address] [facility] Start: 11-19-2023 End: 11-19-2023 Patient encounter procedure 11/19/2023 2:45 PM EST [facility] [address] [place] [phone] Shaikh Prater MD [address] [place] [address] [facility] Start: 11-15-2023 End: 11-15-2024 Lipid 1996 panel - Serum or Plasma Lipid panel Lab Routine Metabolic syndrome X Pure hypertriglyceridemia ([facility]/HCC) Expected: 11/15/2023 (Approximate), Expires: 11/15/2024 [facility] Work Phone: Comment on above: Expected: 11/15/2023 (Approximate), Expi res: 11/15/2024 Start: 10-08-2023 Hemoglobin A1c measurement Diabetes: Hemoglobin A1C [facility] Start: 06-21-2023 MR lumbar spine wo con MR lumbar spine wo con [facility] Start: 06-21-2023 MR Lumbar spine WO contrast [facility] Start: 06-08-2023 Influenza vaccination [facility] Start: 10-30-2022 End: 12-30-2022 MIKAYLA BY IFA WITH REFLEX [facility] Work Phone: Comment on above: Expected: 10/30/2022, Expires: 3 Start: 10-30-2022 End: 12-30-2022 Cyclic citrullinated peptide IgG Ab [Units/volume] in Serum or Plasma [facility] Work Phone: Comment on above: Expected: 10/30/2022, Expires: 3 Start: 10-30-2022 End: 12-30-2022 Erythrocyte sedimentation rate [facility] Work Phone: Comment on above: Expected: 10/30/2022, Expires: 3 Start: 10-08-2022 DEPRESSION ASSESSMENT DEPRESSION ASSESSMENT [facility] Start: 06-08-2022 Influenza vaccination INFLUENZA (#1) [facility] Start: 12-14-2021 Urine screening for protein Diabetes: Urine Protein Screening [facility] Start: 04-08-2021 COVID-19 VACCINE (3 - Booster for Pfizer series) COVID-19 VACCINE (3 - Booster for Pfizer series) [facility] Start: 04-08-2021 COVID-19 VACCINE (3 - Pfizer series) COVID-19 VACCINE (3 - Pfizer series) [facility] Start: 02-11-2021 COVID-19 VACCINE (2 - Pfizer series) COVID-19 VACCINE (2 - Pfizer series) [facility] Start: 01-04-2020 Urine microalbumin profile [facility] Start: 2018 COLOGUARD (FIT-DNA) COLOGUARD (FIT-DNA) [facility] Start: 2018 Colonoscopy COLONOSCOPY [facility] Start: 2018 COLORECTAL CANCER SCREENING COLORECTAL CANCER SCREENING [facility] Start: [address] COLONOGRAPHY [facility] Start: 2018 FECAL OCCULT BLOOD FECAL OCCULT BLOOD [facility] Start: 2018 SIGMOIDOSCOPY SIGMOIDOSCOPY [facility] Start: 01-04-2010 Urine microalbumin profile DTAP,TDAP,TD (1 - Tdap) [facility] Start: 2008 Lipid 1996 panel - Serum or Plasma Lipid Screening [facility] Start: 2008 LIPID SCREEN LIPID SCREEN [facility] Start: 1992 Urine microalbumin profile DTAP,TDAP,TD (1 - Tdap) [facility] Start: 1991 HEPATITIS C SCREENING HEPATITIS C SCREENING [facility] Start: 1991 HIV SCREENING HIV SCREENING [facility] Start: 1973 HEPATITIS B (1 of 3 - 3-dose series) HEPATITIS B (1 of 3 - 3-dose series) [facility] Start: 1973 Hepatitis B Vaccine (1 of 3 - 3-dose series) Hepatitis B Vaccine (1 of 3 - 3-dose series) [facility] Start: 1973 Medicare Annual Wellness (AWV) Medicare Annual Wellness (AWV) [facility] Start: 1973 Screening for malignant neoplasm of colon [facility] Microalbumin/Creatin ine panel in random Urine Microalbumin / creatinine urine ratio Lab Routine Type 2 diabetes mellitus without complication, with long-term current use of insulin ([facility]/HCC) Uncontrolled type 2 diabetes mellitus with hyperglycemia ([facility]) Ordered: 06/26/2024 [facility] Work Phone: Comment on above: Ordered: 06/26/2024 Patient Education [facility] Work Phone: Patient referral [facility] Work Phone: SPINE INTERVENTION PROCEDURE SPINE INTERVENTION PROCEDURE Procedures Routine Sacroiliitis (HCC) Ordered: 11/15/2022 [facility] Work Phone: Comment on above: Ordered: 11/15/2022 [facility] Immunizations Immunization Date Immunization Notes Care Provider [facility] 06-17-2024 influenza, injectabl e, madin shyla canine kidney, preservative free Jami Aichholz [employer]ATION [employer] TECHNICIAN Work Phone: [facility] 06-17-2024 influenza virus vaccine, unspecified formulation J uLis Cárdenas MD Work Phone: [facility] 05-15-2024 influenza, seasonal, injectable Shakeel Vargas MA [facility] 12-14-2023 zoster vaccine recombinant Jami Aichholz AVIATION ELECTRONICS TECHNICIAN Work Phone: [facility] 11-09-2023 zoster vaccine recombinant Jami Aichholz AVIATION ELECTRONICS TECHNICIAN Work Phone: [facility] 07-13-2023 SARS-COV-2 (COVID-19 ) vaccine, mRNA, spike protein, LNP, PF, 50 mcg/0.5 mL Shaikh Moi GREEN Work Phone: [facility] 06-27-2023 Influenza, injectabl e, Madin Gates Canine Kidney, preservative free, quadrivalent Shaikh Moi GREEN Work Phone: [facility] 06-27-2023 influenza virus vaccine, unspecified formulation Denis Fabi RICHARDS Work Phone: [facility] 02-11-2021 COVID-19 original vaccine, age 12+ yr, monovalent (PFIZER-BIONTECH - PURPLE TOP) Santana Harris MD Work Phone: [facility] 01-21-2021 COVID-19 original vaccine, age 12+ yr, monovalent (PFIZER-BIONTECH - PURPLE TOP) Santana Harris MD Work Phone: [facility] 07-07-2020 influenza, injectabl e, quadrivalent, preservative free Santana Harris MD Work Phone: [facility] 07-07-2020 influenza virus vaccine, unspecified formulation Kb Lorenzo DO Work Phone: [facility] 09-29-2019 influenza, injectabl e, quadrivalent, contains preservative Shaikh Moi GREEN Work Phone: [facility] 08-13-2019 influenza, injectabl e, quadrivalent, contains preservative Shaikh Moi GREEN Work Phone: [facility] Comment on above: Early/Late Reason: O ther : Flu shot given prior to date 08-24-2017 influenza, injectabl e, quadrivalent, preservative free Santana Harris MD Work Phone: [facility] 07-07-2016 influenza, injectabl e, quadrivalent, preservative free Santana Harris MD Work Phone: [facility] 07-02-2015 influenza, injectabl e, quadrivalent, preservative free Santana Harris MD Work Phone: [facility] 07-02-2015 influenza, seasonal, injectable, preservative free Shaikh Moi GREEN Work Phone: [facility] 08-05-2014 influenza, seasonal, injectable, preservative free Santana Harris MD Work Phone: [facility] 07-18-2013 influenza, seasonal, injectable, preservative free Santana Harris MD Work Phone: [facility] 07-18-2013 seasonal influenza, intradermal, preservative free Shaikh Moi GREEN Work Phone: [facility] 07-05-2012 influenza, seasonal, injectable, preservative free Shaikh Moi GREEN Work Phone: [facility] 09-04-2011 influenza virus vaccine, whole virus Shaikh Moi GREEN Work Phone: [facility] 07-07-2010 influenza virus vaccine, whole virus Shaikh Moi GREEN Work Phone: [facility] 01-03-2010 diphtheria, tetanus toxoids and pertussis vaccine Shaikh Moi GREEN Work Phone: [facility] 01-03-2010 tetanus and diphther ia toxoids, adsorbed, preservative free, for adult use (5 Lf of tetanus toxoid and 2 Lf of diphtheria toxoid) Santana Harris MD Work Phone: [facility] 01-03-2010 tetanus toxoid, redu los diphtheria toxoid, and acellular pertussis vaccine, adsorbed Santana Harris MD Work Phone: [facility] Payers Date Payer Category Payer Unknown [id number] 2024 Worker's Compensation [employer] [place] [address] [address] [place] [id number] 2024 Unknown [id number] 2023 Medicaid [id number] 2023 Self-pay [id number] 2022 Private Health Insurance [id number] 2022 Medicaid [id number] 1973 Unknown [id number] 2.16.840.1.905674.3.579.2 .593 1973 Unknown [id number] 2.16.840.1.543736.3.579.2 .593 1973 Unknown [id number] 2.16.840.1.681533.3.579.2 .593 1973 Unknown [id number] 2.16.840.1.471403.3.579.2 .593 1973 Unknown [id number] 2.16.840.1.864920.3.579.2 .593 1973 Unknown [id number] 2.16.840.1.812852.3.579.2 .593 1973 Unknown [id number] 2.16.840.1.714329.3.579.2 .593 1973 Unknown [id number] 2.16.840.1.228659.3.579.2 .196 1973 Unknown [id number] 2.16.840.1.909301.3.579.2 .727 1973 Unknown [id number] 2.16.840.1.922159.3.579.2 .727 1973 Unknown [id number] 2.16.840.1.141472.3.579.2 .727 1973 Unknown [id number] 2.16.840.1.230481.3.579.2 .1258 1973 Unknown [id number] 2.16.840.1.935485.3.579.2 .1258 1973 Unknown [id number] 2.16.840.1.290488.3.579.2 .1258 1973 Unknown [id number] 2.16.840.1.311033.3.579.2 .1258 1973 Unknown [id number] 2.16.840.1.813281.3.579.2 .1258 1973 Unknown [id number] 2.16.840.1.749652.3.579.2 .1258 1973 Unknown [id number] 2.16.840.1.580836.3.579.2 .1258 1973 Unknown [id number] 2.16.840.1.052781.3.579.2 .1258 1973 Unknown [id number] 2.16.840.1.409116.3.579.2 .9 1961 Medicaid [id number] Unknown MMO [id number] Unknown Jardin [place] / [id number] Unknown [id number] 2.16.840.1.783296.3.579.2 .531 Unknown [id number] 2.16.840.1.280752.3.579.2 .531 Unknown [id number] 2.16.840.1.362265.3.579.2 .531 Unknown [id number] 2.16.840.1.944657.3.579.2 .531 Unknown [id number] 2.16.840.1.453445.3.579.2 .531 Social History Date Type Detail Facility Unknown if ever smoked [facility] Other Start: 11-15-2022 End: 04-06-2025 Sex Assigned At [facility] Start: 1975 Sex Assigned At Male [facility] Start: 10-19-2022 End: 11-19-2023 Tobacco smoking status HIIS Never smoked tobacco [facility] Start: 10-19-2022 End: 06-26-2024 Tobacco use and exposure Smokeless tobacco non-user [facility] Start: 1975 Sex Assigned At Not on file [facility] Start: 01-27-2023 End: 06-26-2024 Tobacco smoking status HIIS Ex-smoker (finding) [facility] Start: 11-15-2022 End: 04-06-2025 History of Social function [facility] Adult Depression Screening Assessment 2 [facility] Start: 10-16-2023 End: 05-27-2024 Alcohol intake Lifetime non-drinker (finding) [facility] Are you now , , , , never or living with a partner? Refused [facility] Start: 09-17-2023 Alcohol Comment caffeine: 1-2 cups per day [facility] History of tobacco use Current smoker [facility] History of tobacco use Cigarette Smoker [facility] Start: 06-26-2024 End: 04-06-2025 Alcoholic beverage intake Current drinker of alcohol [...] caffeine: 3-4 cups per day [facility] Tobacco smoking status [facility] Start: 01-19-2010 Sex Male (finding) [facility] NEGATED: Highlighted rowStart: NINF History of tobacco use Passive smoker [facility] Medical Equipment Procedure Code Equipment Code Equipment Origin al Text Equipment Identifier Dates Use as instructed [id number] Start: 11-19-2023 End: 11-18-2024 Functional Status Date Assessment Result Facility 04-06-2025 Patient Health Questionnaire 2 item (PHQ-2) [Reported] [facility] 04-06-2025 How difficult have t hese problems made it for you to do your work, take care of things at home, or get along with other people? Not difficult at all 04/06/2025 10:16 AM EDT GALI ALLRED Not difficult at all [facility] 09-01-2024 Functional Status N/A [place] [facility] Clinical Notes 08-08-2021 to 04-06-2025 Telephone Encounter - Jami Small NP - 04/06/2025 10:53 AM EDTTelephone Encounter - Jami Small NP - 04/06/2025 10:53 AM EDTLlydia Small NP - 04/06/2025 10:52 AM EDTPatient Instructions Note Date & Type Note Facility 04-06-2025 Telephone encounter Note Please call [facility] to see if we can get a copy of last eye exam in 2023 [facility] 04-06-2025 Miscellaneous Notes Please call [facility] to see if we can get a copy of last eye exam in 2023 documented in this encounter [facility] 04-06-2025 History of Presen t illness Narrative Associated Problem(s): Moderate persistent asthma without complication (HCC) Symbicort, and airsupra Pt needs a refill on symbicort and albuterol, and airisupra Images from the original note were not included. Bhavesh Cárdenas is a 49 y.o. male presents with chief complaint of Medicare Annual Wellness Visit Initial HPI: Diet:eating less with mounjaro, eating healthier Activity:lumbar back prohibits , but is doing more Mental Health Concerns: sees a therapist Falls in the last year: no Still driving: does not choose to drive d/t cervical Any hearing problems: no Any Vision problems: wears glasses Any Hospitalizations in the last year: no Specialist: Neurologist, Neurosurgeon, Therapist HCPOA/Living Will: no Concerns: no Diabetes; 3 day 75% range, 25% high avg 159, 25% high 14 day avg 153, GMI 7%, range 79% 18% high 30 day avg 151, GMI 6.9%, range 81%, high 16% 90 day: avg 198, 47% range, 29% high, 22 % very high Asthma: has been out of symbicort, using more airsupra SUBJECTIVE: MEDICATIONS: Current Outpatient Medications Medication Instructions Albuterol-Budesonide (Airsupra) 90-80 MCG/ACT aerosol 2 puffs, Inhalation, Every 6 hours PRN amLODIPine (NORVASC) 5 mg, Oral, Daily budesonide-formoterol (Symbicort) 160-4.5 MCG/ACT inhaler 2 puffs, Inhalation, 2 times daily, Rinse mouth after use Continuous Glucose Sensor (Dexcom G7 Sensor) misc 1 each, Other, Daily, APPLY 1 SENSOR CONTINUOUSLY DIRECTED ferrous sulfate 325 mg, Daily with breakfast metFORMIN (GLUCOPHAGE) 1,000 mg, Oral, 2 times daily with meals Mounjaro 7.5 mg, Every 7 days OXcarbazepine (Trileptal) 300 MG tablet Take 1 tab (300mg) PO QAM and 1 1/2 tabs (450mg) PO at bedtime oxyCODONE (ROXICODONE) 10 mg, Oral, Every 8 hours PRN prazosin (MINIPRESS) 5 mg, Nightly pregabalin (LYRICA) 200 mg, Oral, 3 times daily rOPINIRole (REQUIP) 4 mg, Oral, Nightly sertraline (ZOLOFT) 100 mg, Daily tiZANidine (Zanaflex) 4 MG tablet 1 tablet orally bid ALLERGIES: Allergies Allergen Reactions Ibuprofen Anaphylaxis Naproxen Anaphylaxis Nsaids Anaphylaxis, Swelling and Shortness of breath Aspirin Unknown Oxaprozin Unknown Tramadol Other Reaction(s): diarrhea, nausea, cold sweats REVIEW OF SYMPTOMS: Review of Systems Constitutional: Negative for activity change, appetite change and unexpected weight change. HENT: Negative for ear pain, nosebleeds, sneezing, trouble swallowing and voice change. Eyes: Negative for pain, discharge and visual disturbance. Respiratory: Positive for shortness of breath. Negative for apnea, chest tightness and wheezing. Cardiovascular: Negative for leg swelling. Gastrointestinal: Negative for abdominal distention, blood in stool, constipation and diarrhea. Genitourinary: Negative for decreased urine volume, difficulty urinating, dysuria and hematuria. Musculoskeletal: Positive for arthralgias, back pain and neck pain. Skin: Negative for color change. Neurological: Negative for dizziness, tremors and seizures. Psychiatric/Behavioral: Negative for agitation, decreased concentration, hallucinations, self-injury and suicidal ideas. The patient is not nervous/anxious. Hematological: Negative for adenopathy. Does not bruise/bleed easily. Endocrine: Negative for cold intolerance, heat intolerance, polydipsia and polyuria. Allergic/Immunologic: Negative for environmental allergies and food allergies. PAST MEDICAL HISTORY Past Medical History: Diagnosis Date Asthma (HCC) Asthma, moderate persistent (HCC) DDD (degenerative disc disease), lumbar Depression, major Doing well with Cymbalta. DM (diabetes mellitus) (HCC) Using Metformin, glipizide and Trulicity Reviewed FSBS - ranging from 100-150 now No hypoglycemia. A1C 04/29 --> 7.5 Improved from >11 HLD (hyperlipidemia) Insomnia Obstructive sleep apnea, adult Prior hx of JUNG, not using CPAP. Can't recall how long ago was that Osteoarthritis Poorly controlled type 2 diabetes mellitus (HCC) Poorly controlled. Previously, he has been very hesitant to take medications or follow treatment plan A1C 12/28 -- 11 Now on Metformin, Glipizide and Trulicity. His blood glucose were at goal and was doing well but now they are above 300 on average since he got epidural steroid injection. I also noted that he has gained about 15 lbs & that he needs to work on lifestyle measures and change his diet. Right knee pain Right knee pain, locking, instability. Positive Braga test. RLS (restless legs syndrome) on Requip. Symptoms well controlled Sacroiliac joint pain Thoracic back pain More or less persistent, can't get comfortable Thoracolumbar back pain Persistent of thoraco lumbar back pain, with periods of back spasm and shooting pain down to b/l LE. Progressively worsening with multiple ED visits He is now on Lyrica and Oxycodone for pain. Seen by Neurology - had EMG/NCV and MRI done. Results not available to review. Another ED visit - was given systemic steroid. Reports he has constant burning pain in midline lumbar region Past Surgical History: Procedure Laterality Date KNEE SURGERY x2 OTHER SURGICAL HISTORY Interventional pain procedure family history includes Brain Aneurysm in his mother; CX in his father; Hypertension in his mother; Migraines in his mother; Multiple sclerosis in his father; Prostate cancer in his father. OBJECTIVE: Visit Vitals BP 106/70 (BP Location: Left arm, Patient Position: Sitting, BP Cuff Size: Adult long) Pulse 73 Temp 98.1 F (Temporal) Resp 18 Wt 203 lb 6.4 oz SpO2 96% BMI 34.91 kg/m Smoking Status Former BSA 2.04 m Physical Exam Vitals and nursing note reviewed. Constitutional: Appearance: Normal appearance. HENT: Head: Normocephalic. Right Ear: External ear normal. Left Ear: External ear normal. Nose: Nose normal. Mouth/Throat: Mouth: Mucous membranes are moist. Pharynx: Oropharynx is clear. Eyes: Extraocular Movements: Extraocular movements intact. Conjunctiva/sclera: Conjunctivae normal. Neck: Vascular: No carotid bruit. Cardiovascular: Rate and Rhythm: Normal rate and regular rhythm. Pulses: Normal pulses. Heart sounds: Normal heart sounds. No murmur heard. Pulmonary: Effort: Pulmonary effort is normal. Breath sounds: Normal breath sounds. No wheezing or rhonchi. Abdominal: General: Bowel sounds are normal. Palpations: Abdomen is soft. Tenderness: There is abdominal tenderness. Musculoskeletal: Cervical back: Neck supple. Right lower leg: No edema. Left lower leg: No edema. Skin: General: Skin is warm and dry. Capillary Refill: Capillary refill takes 2 to 3 seconds. Neurological: General: No focal deficit present. Mental Status: He is alert. Psychiatric: Mood and Affect: Mood normal. Behavior: Behavior normal. Thought Content: Thought content normal. Judgment: Judgment normal. ASSESSMENT AND PLAN: Follow up in about 2 months (around 06/06/2025) for Recheck. Problem List Items Addressed This Visit Hyperlipidemia Check labs Relevant Orders Comprehensive metabolic panel Lipid panel Moderate persistent asthma without complication (HCC) Symbicort, and airsupra Relevant Medications budesonide-formoterol (Symbicort) 160-4.5 MCG/ACT inhaler Albuterol-Budesonide (Airsupra) 90-80 MCG/ACT aerosol Uncontrolled type 2 diabetes mellitus with hyperglycemia (HCC) Check blood sugars daily, notify if <70 [...] diet low in carbohydrates, and simple sugars. Current meds: metformin, mounjaro A1c: 9.7 on 02/23/25 CGM numbers are improving Fu in 2months Relevant Orders Urinalysis with reflex microscopic (clean catch) Microalbumin / creatinine, urine ratio Comprehensive metabolic panel Lipid panel Chronic pain syndrome Chronic back pain Current meds: oxycodone prn, joe LUNDBERG reveiwed Med agreement: 02/23/2025 With losing weight, has been able to do more physically Primary hypertension Please check blood pressure daily and record DASH diet Limit caffeine Take medication as directed Contact office if chest pain, pressure, dizziness, shortness of breath, swelling legs Recommend slow position changes Current med: amlodipine Relevant Orders Urinalysis with reflex microscopic (clean catch) Microalbumin / creatinine, urine ratio Comprehensive metabolic panel Iron deficiency anemia secondary to inadequate dietary iron intake On ferrous sulfate daily Check labs Relevant Orders CBC and differential Iron + transferrin + TIBC Ferritin Encounter for subsequent annual wellness visit (AWV) in Medicare patient - Primary Reviewed Ht/Wt/BMI Recommend eye exam yearly Recommend dental exams twice a year Balance work/leisure activities Exercises is recommended most days of the week (appropriate as chronic conditions allow) Follow up yearly and prn Hand out on Living will and HCPOA Prostate cancer screening Check PSA level Relevant Orders PSA Colon cancer screening Relevant Orders Cologuard colon cancer screening Associated Problem(s): Iron deficiency anemia secondary to inadequate dietary iron intake On ferrous sulfate daily Check labs Associated Problem(s): Hyperlipidemia Check labs Associated Problem(s): Prostate cancer screening Check PSA level Associated Problem(s): Encounter for subsequent annual wellness visit (AWV) in Medicare patient Reviewed Ht/Wt/BMI Recommend eye exam yearly Recommend dental exams twice a year Balance work/leisure activities Exercises is recommended most days of the week (appropriate as chronic conditions allow) Follow up yearly and prn Hand out on Living will and HCPOA Associated Problem(s): Uncontrolled type 2 diabetes mellitus with hyperglycemia (HCC) Check blood sugars daily, notify if <70 [...] diet low in carbohydrates, and simple sugars. Current meds: metformin, mounjaro A1c: 9.7 on 02/23/25 CGM numbers are improving Fu in 2months Associated Problem(s): Class 2 severe obesity due to excess calories with serious comorbidity in adult ([facility]) Discussed with patient their BMI (actual, verses recommended). We have also discussed lifestyle modifications: attempts to perform physical activity as chronic conditions allow, also to monitor dietary intake: increasing protein/fruits/veggies and lowering carb intake (unless contraindicated). Limit sodas, juices, and sugary drinks. Takes jimenez Difficulty with exercise d/t chronic health conditions Associated Problem(s): Primary hypertension Please check blood pressure daily and record DASH diet Limit caffeine Take medication as directed Contact office if chest pain, pressure, dizziness, shortness of breath, swelling legs Recommend slow position changes Current med: amlodipine Associated Problem(s): Chronic pain syndrome Chronic back pain Current meds: oxycodone prn, joe OAISAIAH reveiwed Med agreement: 02/23/2025 With losing weight, has been able to do more physically documented in this encounter [facility] 02-23-2025 History of Presen t illness Narrative Images from the original note were not included. Bhavesh Cárdenas is a 49 y.o. male presents with chief complaint of No chief complaint on file. HPI: Pain cervical: pain with rotation , 2-08/17, NT in arms bilat , freq drops things as well, involuntary Lumbar: daily 2-07/17, more active the more he hurts, has done PT, is trying to increase what he does , weakness bilat legs, no tingles, no cauda equina Does follow with specialist Hypertension This is a chronic problem. The current episode started more than 1 year ago. The problem is unchanged. The problem is controlled. Associated symptoms include neck pain and peripheral edema. Pertinent negatives include no headaches, orthopnea or shortness of breath. There are no associated agents to hypertension. Risk factors for coronary artery disease include diabetes mellitus, male gender and obesity. Past treatments include calcium channel blockers. The current treatment provides significant improvement. There are no compliance problems. There is no history of CAD/WA, heart failure or PVD. Diabetes He presents for his follow-up diabetic visit. He has type 2 diabetes mellitus. His disease course has been worsening. There are no hypoglycemic associated symptoms. Pertinent negatives for hypoglycemia include no dizziness, headaches, nervousness/anxiousness, seizures or tremors. Associated symptoms include polyuria. Pertinent negatives for diabetes include no foot paresthesias, no polydipsia, no polyphagia and no visual change. There are no hypoglycemic complications. Symptoms are worsening. There are no diabetic complications. Pertinent negatives for diabetic complications include no PVD. Risk factors for coronary artery disease include diabetes mellitus, dyslipidemia, hypertension, obesity, male sex and sedentary lifestyle. Current diabetic treatment includes oral agent (dual therapy). He is compliant with treatment all of the time. He is following a diabetic diet. His overall blood glucose range is >200 mg/dl. An ALVINA inhibitor/angiotensin II receptor elinor is not being taken. Eye exam is current. Asthma He complains of cough. There is no shortness of breath or wheezing. This is a chronic problem. The current episode started more than 1 year ago. The problem occurs daily. The problem has been waxing and waning. Associated symptoms include nasal congestion and rhinorrhea. Pertinent negatives include no appetite change, dyspnea on exertion, ear pain, headaches, postnasal drip, sneezing or trouble swallowing. His symptoms are aggravated by change in weather. His symptoms are alleviated by beta-agonist and steroid inhaler. He reports moderate improvement on treatment. His past medical history is significant for asthma. There is no history of COPD or emphysema. SUBJECTIVE: MEDICATIONS: Current Outpatient Medications Medication Instructions Albuterol-Budesonide (Airsupra) 90-80 MCG/ACT aerosol 2 puffs, Inhalation, Every 6 hours PRN amLODIPine (NORVASC) 5 mg, Oral, Daily budesonide-formoterol (Symbicort) 160-4.5 MCG/ACT inhaler 2 puffs, Inhalation, 2 times daily, Rinse mouth after use Continuous Glucose Sensor (Dexcom G7 Sensor) misc APPLY 1 SENSOR CONTINUOUSLY DIRECTED metFORMIN (GLUCOPHAGE) 1,000 mg, Oral, 2 times daily with meals Mounjaro 7.5 mg, Subcutaneous, Every 7 days OXcarbazepine (Trileptal) 300 MG tablet Take 1 tab (300mg) PO QAM and 1 1/2 tabs (450mg) PO at bedtime oxyCODONE (ROXICODONE) 10 mg, Oral, Every 8 hours PRN prazosin (MINIPRESS) 5 mg, Nightly pregabalin (LYRICA) 200 mg, Oral, 3 times daily rOPINIRole (REQUIP) 4 mg, Oral, Nightly sertraline (ZOLOFT) 100 mg, Daily tiZANidine (Zanaflex) 4 MG tablet 1 tablet orally bid ALLERGIES: Allergies Allergen Reactions Ibuprofen Anaphylaxis Naproxen Anaphylaxis Nsaids Anaphylaxis, Swelling and Shortness of breath Aspirin Unknown Oxaprozin Unknown Tramadol Other Reaction(s): diarrhea, nausea, cold sweats REVIEW OF SYMPTOMS: Review of Systems Constitutional: Negative for activity change, appetite change and unexpected weight change. HENT: Positive for rhinorrhea. Negative for ear pain, nosebleeds, postnasal drip, sneezing, trouble swallowing and voice change. Eyes: Negative for pain, discharge and visual disturbance. Respiratory: Positive for cough. Negative for apnea, chest tightness, shortness of breath and wheezing. Cardiovascular: Negative for dyspnea on exertion, orthopnea and leg swelling. Gastrointestinal: Negative for abdominal distention, blood in stool, constipation and diarrhea. Genitourinary: Negative for decreased urine volume, difficulty urinating, dysuria and hematuria. Musculoskeletal: Positive for arthralgias, back pain and neck pain. Skin: Negative for color change. Neurological: Negative for dizziness, tremors, seizures and headaches. Psychiatric/Behavioral: Negative for agitation, decreased concentration, hallucinations, self-injury and suicidal ideas. The patient is not nervous/anxious. Hematological: Negative for adenopathy. Does not bruise/bleed easily. Endocrine: Positive for polyuria. Negative for cold intolerance, heat intolerance, polydipsia and polyphagia. Allergic/Immunologic: Negative for environmental allergies and food allergies. PAST MEDICAL HISTORY Past Medical History: Diagnosis Date Asthma Asthma, moderate persistent ([facility]) DDD (degenerative disc disease), lumbar Depression, major ([facility]) Doing well with Cymbalta. DM (diabetes mellitus) ([facility]) Using Metformin, glipizide and Trulicity Reviewed FSBS - ranging from 100-150 now No hypoglycemia. A1C 04/29 --> 7.5 Improved from >11 HLD (hyperlipidemia) ([facility]) Insomnia Obstructive sleep apnea, adult Prior hx of JUNG, not using CPAP. Can't recall how long ago was that Osteoarthritis Poorly controlled type 2 diabetes mellitus ([facility]) Poorly controlled. Previously, he has been very hesitant to take medications or follow treatment plan A1C 12/28 -- 11 Now on Metformin, Glipizide and Trulicity. His blood glucose were at goal and was doing well but now they are above 300 on average since he got epidural steroid injection. I also noted that he has gained about 15 lbs & that he needs to work on lifestyle measures and change his diet. Right knee pain Right knee pain, locking, instability. Positive Braga test. RLS (restless legs syndrome) on Requip. Symptoms well controlled Sacroiliac joint pain Thoracic back pain More or less persistent, can't get comfortable Thoracolumbar back pain Persistent of thoraco lumbar back pain, with periods of back spasm and shooting pain down to b/l LE. Progressively worsening with multiple ED visits He is now on Lyrica and Oxycodone for pain. Seen by Neurology - had EMG/NCV and MRI done. Results not available to review. Another ED visit - was given systemic steroid. Reports he has constant burning pain in midline lumbar region Past Surgical History: Procedure Laterality Date KNEE SURGERY x2 OTHER SURGICAL HISTORY Interventional pain procedure family history includes Brain Aneurysm in his mother; CX in his father; Hypertension in his mother; Migraines in his mother; Multiple sclerosis in his father; Prostate cancer in his father. OBJECTIVE: Visit Vitals BP 124/88 (BP Location: Left arm, Patient Position: Sitting, BP Cuff Size: Adult long) Pulse 73 Temp 98.3 F (Temporal) Resp 19 Wt 216 lb 6.4 oz SpO2 93% BMI 37.14 kg/m Smoking Status Former BSA 2.11 m Physical Exam Vitals and nursing note reviewed. Constitutional: Appearance: Normal appearance. He is obese. HENT: Head: Normocephalic. Right Ear: Tympanic membrane, ear canal and external ear normal. Left Ear: Tympanic membrane, ear canal and external ear normal. Nose: Nose normal. No congestion or rhinorrhea. Comments: Pale, boggy Mouth/Throat: Mouth: Mucous membranes are moist. Pharynx: Oropharynx is clear. No oropharyngeal exudate or posterior oropharyngeal erythema. Eyes: Extraocular Movements: Extraocular movements intact. Conjunctiva/sclera: Conjunctivae normal. Neck: Vascular: No carotid bruit. Cardiovascular: Rate and Rhythm: Normal rate and regular rhythm. Pulses: Normal pulses. Heart sounds: Normal heart sounds. No murmur heard. Pulmonary: Effort: Pulmonary effort is normal. Breath sounds: Normal breath sounds. No wheezing or rhonchi. Abdominal: General: Bowel sounds are normal. Palpations: Abdomen is soft. Musculoskeletal: Cervical back: Neck supple. Right lower leg: No edema. Left lower leg: No edema. Comments: DTR's 2-3+ bilat patellar, 2+ achilles bilat MMT 5/5 bilat LE Tenderness to lower lumbar -SLR X2 Lymphadenopathy: Cervical: No cervical adenopathy. Skin: General: Skin is warm and dry. Capillary Refill: Capillary refill takes 2 to 3 seconds. Neurological: General: No focal deficit present. Mental Status: He is alert. Psychiatric: Mood and Affect: Mood normal. Behavior: Behavior normal. Thought Content: Thought content normal. Judgment: Judgment normal. ASSESSMENT AND PLAN: Follow up in about 6 weeks (around 04/06/2025) for Recheck. Problem List Items Addressed This Visit Type 2 diabetes mellitus without complication - Primary Check blood sugars daily, notify if <70 [...] diet low in carbohydrates, and simple sugars. Current meds: metformin, mounjaro A1c: 9.7% 02/23/25 Increase dose on mounjaro to 7.5mg weekly Fu in 6 weeks Relevant Medications Tirzepatide (Mounjaro) 7.5 MG/0.5ML solution auto-injector Other Relevant Orders POCT glycosylated hemoglobin (Hb A1C) docked device (Completed) Chronic pain syndrome Chronic back pain Current meds: oxycodone prn, lyrica OARRS reveiwed Med agreement: 02/23/2025 Primary hypertension (CMS/HCC) Please check blood pressure daily and record DASH diet Limit caffeine Take medication as directed Contact office if chest pain, pressure, dizziness, shortness of breath, swelling legs Recommend slow position changes Current med: amlodipine Class 3 severe obesity due to excess calories with serious comorbidity in adult Discussed with patient their BMI (actual, verses recommended). We have also discussed lifestyle modifications: attempts to perform physical activity as chronic conditions allow, also to monitor dietary intake: increasing protein/fruits/veggies and lowering carb intake (unless contraindicated). Limit sodas, juices, and sugary drinks. Does take mounjaro for DM Depression, major (CMS/HCC) Current med: sertarine PHQ 9= 1 Other Visit Diagnoses Chronic neck and back pain Relevant Medications pregabalin (Lyrica) 200 MG capsule Associated Problem(s): Depression, major (CMS/HCC) Current med: sertarine PHQ 9= 1 Associated Problem(s): Type 2 diabetes mellitus without complication Check blood sugars daily, notify if <70 [...] diet low in carbohydrates, and simple sugars. Current meds: metformin, mounjaro A1c: 9.7% 02/23/25 Increase dose on mounjaro to 7.5mg weekly Fu in 6 weeks Associated Problem(s): Class 3 severe obesity due to excess calories with serious comorbidity in adult Discussed with patient their BMI (actual, verses recommended). We have also discussed lifestyle modifications: attempts to perform physical activity as chronic conditions allow, also to monitor dietary intake: increasing protein/fruits/veggies and lowering carb intake (unless contraindicated). Limit sodas, juices, and sugary drinks. Does take mounjaro for DM Associated Problem(s): Primary hypertension (CMS/HCC) Please check blood pressure daily and record DASH diet Limit caffeine Take medication as directed Contact office if chest pain, pressure, dizziness, shortness of breath, swelling legs Recommend slow position changes Current med: amlodipine Associated Problem(s): Chronic pain syndrome Chronic back pain Current meds: oxycodone prn, lyrica OARRS reveiwed Med agreement: 02/23/2025 documented in this encounter [facility] 02-23-2025 Instructions Jami Small NP - 02/23/2025 2:00 PM EDT Increase mounjaro to 7.5mg weekly documented in this encounter [facility] 01-26-2025 Telephone encounter Note Patient is also asking if you can call something in for him for a cough that he can't get rid of. He is not coughing up anything, but feels like he needs to. Patient is also asking for a refill on his Amlodipine to [facility] in [place] please. JN [facility] 01-26-2025 Miscellaneous Notes Patient is also asking if you can call something in for him for a cough that he can't get rid of. He is not coughing up anything, but feels like he needs to. Patient is also asking for a refill on his Amlodipine to [facility] in [place] please. JN documented in this encounter [facility] 01-12-2025 Telephone encounter Note Patient is wanting the Symbicort called in, but he said it is going to be a different brand and has not been called in yet, but says it should be ready to be called in? I wasn't sure which medication that is. He does want the Ropinirole called in. IVETTE [facility] 01-12-2025 Miscellaneous Notes Patient is wanting the Symbicort called in, but he said it is going to be a different brand and has not been called in yet, but says it should be ready to be called in? I wasn't sure which medication that is. He does want the Ropinirole called in. JN documented in this encounter [facility] 01-01-2025 Telephone encounter Note Message sent to Bhavya at the sleep lab to see if he is a patient there and they handle this. [facility] 01-01-2025 Miscellaneous Notes Message sent to Bhavya at the sleep lab to see if he is a patient there and they handle this. Spoke with a patient registration representative from [facility] about this patient. He has new insurance and per the [employer], he has to be seen to get his PAP supplies. Domitila said that he is a mutual patient with us, but is only seen by for is back issues. I spoke with patient and he said that he is seen at [facility] sleep lab and that he has an appt on the . When I was speaking with Domitila, they said that he informed them that he would be seeing them ([facility]) On the . They also said that he has not been the most friendly with them. Do we know if he is seen at the sleep lab? documented in this encounter [facility] 01-01-2025 Telephone encounter Note Spoke with a patient registration representative from [facility] about this patient. He has new insurance and per the [employer], he has to be seen to get his PAP supplies. Domitila said that he is a mutual patient with us, but is only seen by for is back issues. I spoke with patient and he said that he is seen at [facility] sleep lab and that he has an appt on the . When I was speaking with Domitila, they said that he informed them that he would be seeing them ([facility]) On the . They also said that he has not been the most friendly with them. Do we know if he is seen at the sleep lab? [facility] 11-26-2024 History of Presen t illness Narrative Associated Problem(s): Primary hypertension (CMS/HCC) Currently taking Is taking Amlodipine 5mg PO Daily. Checks BP at home; Averages are 120's. Slightly elevated in office today, but pt reports elevated BP readings are consistent with high pain days. Denies orthostatic changes, dizziness, cough, shortness of breath, swelling in extremities. Continue current regimen. Given BP log, advised pt to record BP and bring log back with them to next visit. Associated Problem(s): Type 2 diabetes mellitus without complication (CMS/HCC) Currently taking Mounjaro 5mg and Metformin 1,000mg once daily. Reports no hypoglycemic episodes since changing Metformin to once daily. Most recent labs: hemoglobin A1C 8.2% Average FSBS range from BGs range between 120 and 130 Checks BG levels using: Dexcom Continuous BG monitor, No medication adverse effects reported by the patient. Patient educated on lifestyle modifications, dietary restrictions, signs and symptoms of hypoglycemia/hyperglycemia and importance of eating regular consistent meals. Stressed upon importance of checking blood glucose at home and bring blood glucose log to appointments. All questions, concerns answered and addressed. Encouraged to call office if persistent hypoglycemia/hyperglycemia on home glucose monitoring noted. Images from the original note were not included. Subjective Patient ID: Bhavesh Cárdenas is a 49 y.o. male who presents for Follow-up. HPI DMII: Currently taking Mounjaro 5mg and Metformin 1,000mg once daily. Reports no hypoglycemic episodes since changing Metformin to once daily. Most recent labs: hemoglobin A1C 8.2% Average FSBS range from BGs range between 120 and 130 Checks BG levels using: Dexcom Continuous BG monitor, No medication adverse effects reported by the patient. Patient educated on lifestyle modifications, dietary restrictions, signs and symptoms of hypoglycemia/hyperglycemia and importance of eating regular consistent meals. Stressed upon importance of checking blood glucose at home and bring blood glucose log to appointments. All questions, concerns answered and addressed. Encouraged to call office if persistent hypoglycemia/hyperglycemia on home glucose monitoring noted. Education: Check blood sugars daily, notify if [...] diet low in carbohydrates, and simple sugars. HTN: Currently taking Is taking Amlodipine 5mg PO Daily. Checks BP at home; Averages are 120's. Slightly elevated in office today, but pt reports elevated BP readings are consistent with high pain days. Denies orthostatic changes, dizziness, cough, shortness of breath, swelling in extremities. Continue current regimen. Given BP log, advised pt to record BP and bring log back with them to next visit. Review of Systems Constitutional: Negative for activity [...] flank pain, frequency, hematuria and urgency. Musculoskeletal: Negative for arthralgias, gait problem, joint swelling and myalgias. Skin: Negative for rash. Neurological: Negative for dizziness, tremors, syncope, weakness, light-headedness and headaches. Psychiatric/Behavioral: Negative for decreased concentration and suicidal ideas. The patient is not nervous/anxious. Hematological: Does not bruise/bleed easily. Endocrine: Negative for cold intolerance, heat intolerance, polydipsia, polyphagia and polyuria. Objective Physical Exam Vitals reviewed. Constitutional: Appearance: Normal appearance. HENT: Right Ear: Tympanic membrane normal. Left Ear: [...] soft. Musculoskeletal: General: Normal range of motion. Skin: General: Skin is warm and dry. Capillary Refill: Capillary refill takes less than 2 seconds. Neurological: Mental Status: He is alert and oriented to person, place, and time. Assessment/Plan Problem List Items Addressed This Visit Moderate persistent asthma without complication (CMS/HCC) Relevant Medications budesonide-formoterol (Symbicort) 160-4.5 MCG/ACT inhaler Type 2 diabetes mellitus without complication (CMS/HCC) Currently taking Mounjaro 5mg and Metformin 1,000mg once daily. Reports no hypoglycemic episodes since changing Metformin to once daily. Most recent labs: hemoglobin A1C 8.2% Average FSBS range from BGs range between 120 and 130 Checks BG levels using: Dexcom Continuous BG monitor, No medication adverse effects reported by the patient. Patient educated on lifestyle modifications, dietary restrictions, signs and symptoms of hypoglycemia/hyperglycemia and importance of eating regular consistent meals. Stressed upon importance of checking blood glucose at home and bring blood glucose log to appointments. All questions, concerns answered and addressed. Encouraged to call office if persistent hypoglycemia/hyperglycemia on home glucose monitoring noted. Relevant Medications Tirzepatide (Mounjaro) 5 MG/0.5ML solution auto-injector Uncontrolled type 2 diabetes mellitus with hyperglycemia (CMS/HCC) Relevant Medications Tirzepatide (Mounjaro) 5 MG/0.5ML solution auto-injector Primary hypertension (CMS/HCC) - Primary Currently taking Is taking Amlodipine 5mg PO Daily. Checks BP at home; Averages are 120's. Slightly elevated in office today, but pt reports elevated BP readings are consistent with high pain days. Denies orthostatic changes, dizziness, cough, shortness of breath, swelling in extremities. Continue current regimen. Given BP log, advised pt to record BP and bring log back with them to next visit. documented in this encounter [facility] 11-26-2024 Instructions Denis Dunlap NP - 11/26/2024 8:30 AM EST Education: Check blood sugars daily, notify if [...] diet low in carbohydrates, and simple sugars. documented in this encounter [facility] 11-19-2024 History of Presen t illness Narrative Pt requests oxycodone RX be canceled at [facility] and sent back to [facility]. Oxycodone RX canceled at [facility]. Resent to [facility] [place], [place]. documented in this encounter [facility] 11-18-2024 History of Presen t illness Narrative [facility] was out of patients needed quantity of Oxycodone. RX canceled at [facility]. New RX sent to [facility] in [place]. documented in this encounter [facility] 09-01-2024 Hospital Discharg e instructions Patient Education 09/01/2024 15:03:34 Chronic Back Pain Chronic Back Pain Chronic back pain is back pain that lasts longer than 3 months. The cause of your back pain may not be known. Some common causes include: Wear and tear (degenerative disease) of the bones, disks, or tissues that connect bones to each other (ligaments) in your back. Inflammation and stiffness in your back (arthritis). If you have chronic back pain, you may have times when the pain is more intense (flare-ups). You can also learn to manage the pain with home care. Follow these instructions at home: Watch for any changes in your symptoms. Take these actions to help with your pain: Managing pain and stiffness If told, put ice on the painful area. You may be told to apply ice for the first 24 48 hours after a flare-up starts. ?Put ice in a plastic bag. ?Place a towel between your skin and the bag. ?Leave the ice on for 20 minutes, 2 3 times per day. If told, apply heat to the affected area as often as told by your health care provider. Use the heat source that your provider recommends, such as a moist heat pack or a heating pad. ?Place a towel between your skin and the heat source. ?Leave the heat on for 20 30 minutes. If your skin turns bright red, remove the ice or heat right away to prevent skin damage. The risk of damage is higher if you cannot feel pain, heat, or cold. Try soaking in a warm tub. Activity Avoid bending and other activities that make the pain worse. Have good posture when you stand or sit. ?When you stand, keep your upper back and neck straight, with your shoulders pulled back. Avoid slouching. ?When you sit, keep your back straight. Relax your shoulders. Do not round your shoulders or pull them backward. Do not sit or supervisor rod placing one place for too long. Take brief periods of rest during the day. This will reduce your pain. Resting in a lying or standing position is often better than sitting to rest. When you rest for longer periods, mix in some mild activity or stretching between periods of rest. This will help to prevent stiffness and pain. Get regular exercise. Ask your provider what activities are safe for you. You may have to avoid lifting. Ask your provider how much you can safely lift. If you do lift, always use the right technique. This means you should: ?Bend your knees. ?Keep the load close to your body. ?Avoid twisting. Medicines Take mvsx-jmr-fuunhty and prescription medicines only as told by your provider. You may need to take medicines for pain and inflammation. These may be taken by mouth or put on the skin. You may also be given muscle relaxants. Ask your provider if the medicine prescribed to you: ?Requires you to avoid driving or using machinery. ?Can cause constipation. You may need to take these actions to prevent or treat constipation: ?Drink enough fluid to keep your pee (urine) pale yellow. ?Take czsm-smg-dxjgovh or prescription medicines. ?Eat foods that are high in fiber, such as beans, whole grains, and fresh fruits and vegetables. ?Limit foods that are high in fat and processed sugars, such as fried or sweet foods. General instructions Sleep on a firm mattress in a comfortable position. Try lying on your side with your knees slightly bent. If you lie on your back, put a pillow under your knees. Do not use any products that contain nicotine or tobacco. These products include cigarettes, chewing tobacco, and vaping devices, such as e-cigarettes. If you need help quitting, ask your provider. Contact a health care provider if: You have pain that does not get better with rest or medicine. You have new pain. You have a fever. You lose weight quickly. You have trouble doing your normal activities. You feel weak or numb in one or both of your legs or feet. Get help right away if: You are not able to control when you pee or poop. You have severe back pain and: ?Nausea or vomiting. ?Pain in your chest or abdomen. ?Shortness of breath. ?You faint. These symptoms may be an emergency. Get help right away. Call 911. Do not wait to see if the symptoms will go away. Do not drive yourself to the hospital. This information is not intended to replace advice given to you by your health care provider. Make sure you discuss any questions you have with your health care provider. Document Revised: 05/14/2023 Document Reviewed: 05/14/2023 [employer] Patient Education 2023 [employer]. 09/01/2024 15:03:34 Acute Back Pain, Adult Acute Back Pain, Adult Acute back pain is sudden and usually short-lived. It is often caused by an injury to the muscles and tissues in the back. The injury may result from: A muscle, tendon, or ligament getting overstretched or torn. Ligaments are tissues that connect bones to each other. Lifting something improperly can cause a back strain. Wear and tear (degeneration) of the spinal disks. Spinal disks are circular tissue that provide cushioning between the bones of the spine (vertebrae). Twisting motions, such as while playing sports or doing yard work. A hit to the back. Arthritis. You may have a physical exam, lab tests, and imaging tests to find the cause of your pain. Acute back pain usually goes away with rest and home care. Follow these instructions at home: Managing pain, stiffness, and swelling Take wtjo-rgd-tvjqsjz and prescription medicines only as told by your health care provider. Treatment may include medicines for pain and inflammation that are taken by mouth or applied to the skin, or muscle relaxants. Your health care provider may recommend applying ice during the first 24 48 hours after your pain starts. To do this: ?Put ice in a plastic bag. ?Place a towel between your skin and the bag. ?Leave the ice on for 20 minutes, 2 3 times a day. ?Remove the ice if your skin turns bright red. This is very important. If you cannot feel pain, heat, or cold, you have a greater risk of damage to the area. If directed, apply heat to the affected area as often as told by your health care provider. Use the heat source that your health care provider recommends, such as a moist heat pack or a heating pad. ?Place a towel between your skin and the heat source. ?Leave the heat on for 20 30 minutes. ?Remove the heat if your skin turns bright red. This is especially important if you are unable to feel pain, heat, or cold. You have a greater risk of getting burned. Activity Do not stay in bed. Staying in bed for more than 1 2 days can delay your recovery. Sit up and stand up straight. Avoid leaning forward when you sit or hunching over when you stand. ?If you work at a desk, sit close to it so you do not need to lean over. Keep your chin tucked in. Keep your neck drawn back, and keep your elbows bent at a 90-degree angle (right angle). ?Sit high and close to the steering wheel when you drive. Add lower back (lumbar) support to your car seat, if needed. Take short walks on even surfaces as soon as you are able. Try to increase the length of time you walk each day. Do not sit, drive, or supervisor rod placing one place for more than 30 minutes at a time. Sitting or standing for long periods of time can put stress on your back. Do not drive or use heavy machinery while taking prescription pain medicine. Use proper lifting techniques. When you bend and lift, use positions that put less stress on your back: ?Bend your knees. ?Keep the load close to your body. ?Avoid twisting. Exercise regularly as told by your health care provider. Exercising helps your back heal faster and helps prevent back injuries by keeping muscles strong and flexible. Work with a physical therapist to make a safe exercise program, as recommended by your health care provider. Do any exercises as told by your physical therapist. Lifestyle Maintain a healthy weight. Extra weight puts stress on your back and makes it difficult to have good posture. Avoid activities or situations that make you feel anxious or stressed. Stress and anxiety increase muscle tension and can make back pain worse. Learn ways to manage anxiety and stress, such as through exercise. General instructions Sleep on a firm mattress in a comfortable position. Try lying on your side with your knees slightly bent. If you lie on your back, put a pillow under your knees. Keep your head and neck in a straight line with your spine (neutral position) when using electronic equipment like smartphones or pads. To do this: ?Raise your smartphone or pad to look at it instead of bending your head or neck to look down. ?Put the smartphone or pad at the level of your face while looking at the screen. Follow your treatment plan as told by your health care provider. This may include: ?Cognitive or behavioral therapy. ?Acupuncture or massage therapy. ?Meditation or yoga. Contact a health care provider if: You have pain that is not relieved with rest or medicine. You have increasing pain going down into your legs or buttocks. Your pain does not improve after 2 weeks. You have pain at night. You lose weight without trying. You have a fever or chills. You develop nausea or vomiting. You develop abdominal pain. Get help right away if: You develop new bowel or bladder control problems. You have unusual weakness or numbness in your arms or legs. You feel faint. These symptoms may represent a serious problem that is an emergency. Do not wait to see if the symptoms will go away. Get medical help right away. Call your local emergency services (911 in the [place] Do not drive yourself to the hospital. Summary Acute back pain is sudden and usually short-lived. Use proper lifting techniques. When you bend and lift, use positions that put less stress on your back. Take zquh-jcg-gntebim and prescription medicines only as told by your health care provider, and apply heat or ice as told. This information is not intended to replace advice given to you by your health care provider. Make sure you discuss any questions you have with your health care provider. Document Revised: 12/16/2021 Document Reviewed: 12/16/2021 [employer] Patient Education 2023 [employer]. Follow Up Care 09/01/2024 10:11:34 With:Bright Mejia Address: [address] [place] [address]- [phone] Business (1) When:09/04/2024 14:49:08 Comments:Call for diagnosis based follow up With:Francis Barr Address: [address] [place] [address] [address] [place] [address]- Business (1) When:09/04/2024 14:48:55 Comments:Call Dr for diagnosis based follow up [facility] 09-01-2024 Note ED Patient Education Note Orthopedics Chronic Back Pain Chronic back pain is back pain that lasts longer than 3 months. The cause of your back pain may not be known. Some common causes include: ??? Wear and tear (degenerative disease) of the bones, disks, or tissues that connect bones to each other (ligaments) in your back. ??? Inflammation and stiffness in your back (arthritis). If you have chronic back pain, you may have times when the pain is more intense (flare-ups). You can also learn to manage the pain with home care. Follow these instructions at home: Watch for any changes in your symptoms. Take these actions to help with your pain: Managing pain and stiffness ??? If told, put ice on the painful area. You may be told to apply ice for the first 24?48 hours after a flare-up starts. ? Put ice in a plastic bag. ? Place a towel between your skin and the bag. ? Leave the ice on for 20 minutes, 2?3 times per day. ??? If told, apply heat to the affected area as often as told by your health care provider. Use the heat source that your provider recommends, such as a moist heat pack or a heating pad. ? Place a towel between your skin and the heat source. ? Leave the heat on for 20?30 minutes. ??? If your skin turns bright red, remove the ice or heat right away to prevent skin damage. The risk of damage is higher if you cannot feel pain, heat, or cold. ??? Try soaking in a warm tub. Activity ??? Avoid bending and other activities that make the pain worse. ??? Have good posture when you stand or sit. ? When you stand, keep your upper back and neck straight, with your shoulders pulled back. Avoid slouching. ? When you sit, keep your back straight. Relax your shoulders. Do not round your shoulders or pull them backward. ??? Do not sit or supervisor rod placing one place for too long. ??? Take brief periods of rest during the day. This will reduce your pain. Resting in a lying or standing position is often better than sitting to rest. ??? When you rest for longer periods, mix in some mild activity or stretching between periods of rest. This will help to prevent stiffness and pain. ??? Get regular exercise. Ask your provider what activities are safe for you. ??? You may have to avoid lifting. Ask your provider how much you can safely lift. If you do lift, always use the right technique. This means you should: ? Bend your knees. ? Keep the load close to your body. ? Avoid twisting. Medicines ??? Take csfk-drw-zpzrthj and prescription medicines only as told by your provider. ??? You may need to take medicines for pain and inflammation. These may be taken by mouth or put on the skin. You may also be given muscle relaxants. ??? Ask your provider if the medicine prescribed to you: ? Requires you to avoid driving or using machinery. ? Can cause constipation. You may need to take these actions to prevent or treat constipation: ? Drink enough fluid to keep your pee (urine) pale yellow. ? Take rrjq-uim-uxztgpu or prescription medicines. ? Eat foods that are high in fiber, such as beans, whole grains, and fresh fruits and vegetables. ? Limit foods that are high in fat and processed sugars, such as fried or sweet foods. General instructions ??? Sleep on a firm mattress in a comfortable position. Try lying on your side with your knees slightly bent. If you lie on your back, put a pillow under your knees. ??? Do not use any products that contain nicotine or tobacco. These products include cigarettes, chewing tobacco, and vaping devices, such as e-cigarettes. If you need help quitting, ask your provider. Contact a health care provider if: ??? You have pain that does not get better with rest or medicine. ??? You have new pain. ??? You have a fever. ??? You lose weight quickly. ??? You have trouble doing your normal activities. ??? You feel weak or numb in one or both of your legs or feet. Get help right away if: ??? You are not able to control when you pee or poop. ??? You have severe back pain and: ? Nausea or vomiting. ? Pain in your chest or abdomen. ? Shortness of breath. ? You faint. These symptoms may be an emergency. Get help right away. Call 911. ??? Do not wait to see if the symptoms will go away. ??? Do not drive yourself to the hospital. This information is not intended to replace advice given to you by your health care provider. Make sure you discuss any questions you have with your health care provider. Document Revised: 05/14/2023 Document Reviewed: 05/14/2023 [employer] Patient Education ? 2023 [employer] Acute Back Pain, Adult Acute back pain is sudden and usually short-lived. It is often caused by an injury to the muscles and tissues in the back. The injury may result from: (more content not included)... [facility] 09-01-2024 Evaluation + Plan note Extrac trinh from: Title:ED Note Author:Mary Carmen GEORGE Student, Elmo Penaloza Date:09/01/24 Acute back pain (M54.9: [place], unspecified) Orders: diazepam, 5 mg = 1 tab(s), Tab, Oral, Once, Stop date 09/01/24 14:36:00 EST, STAT, Start date 09/01/24 14:36:00 EST, 09/01/24 14:36:00 EST HYDROmorphone, 1 mg = 1 mL, Injection, IntraMuscular, Once, Stop date 09/01/24 12:44:00 EST, STAT, Start date 09/01/24 12:44:00 EST, 09/01/24 12:44:00 EST triamcinolone, 40 mg = 1 mL, Susp-Inj, IntraMuscular, Once, Stop date 09/01/24 12:44:00 EST, STAT, Start date 09/01/24 12:44:00 EST, 09/01/24 12:44:[address] Spine Lumbar w/o Contrast CT Spine Thoracic w/o Contrast [facility] 11-19-2024 History of Present illness Narrative* Denis Dunlap NP - 08/26/2024 2:56 PM ESTAssociated Problem(s): Primary hypertension (CMS/HCC) Currently taking Is taking Amlodipine 5mg PO Daily. Checks BP at home; Averages are 120's. Slightly elevated in office today, but pt reports elevated BP readings are consistent with high pain days. Denies orthostatic changes, dizziness, cough, shortness of breath, swelling in extremities. Continue current regimen. Given BP log, advised pt to record BP and bring log back with them to next visit. * Denis Dunlap NP - 08/26/2024 2:56 PM ESTAssociated Problem(s): Type 2 diabetes mellitus without complication (CMS/HCC) Currently taking Mounjaro 5mg and Metformin 1,000mg once daily. Most recent labs: hemoglobin A1C 7.7% Average FSBS range from BGs range between 120 and 130 Checks BG levels using: Dexcom Continuous BG monitor, Was given sample in office. No episode of hypoglycemia since stopping glipizide and decreasing metformin. No medication adverse effects reported by the patient. Patient educated on lifestyle modifications, dietary restrictions, signs and symptoms of hypoglycemia/hyperglycemia and importance of eating regular consistent meals. Stressed upon importance of checking blood glucose at home and bring blood glucose log to appointments. All questions, concerns answered and addressed. Encouraged to call office if persistent hypoglycemia/hyperglycemia on home glucose monitoring noted. * Denis Dunlap NP - 08/26/2024 2:30 PM EST Images from the original note were not included. Subjective Patient ID: Bhavesh Cárdenas is a 48 y.o. male who presents for Follow-up. HPI Reports he has not had any episodes of hypoglycemia since he stopped in office on 08/18. At that time Lantus was stopped. Metformin decreased to once daily in the morning. A1C has improved significantly. DMII: Currently taking Mounjaro 5mg and Metformin 1,000mg once daily. Most recent labs: hemoglobin A1C 7.7% Average FSBS range from BGs range between 120 and 130 Checks BG levels using: Dexcom Continuous BG monitor, Was given sample in office. No episode of hypoglycemia since stopping glipizide and decreasing metformin. No medication adverse effects reported by the patient. Patient educated on lifestyle modifications, dietary restrictions, signs and symptoms of hypoglycemia/hyperglycemia and importance of eating regular consistent meals. Stressed upon importance of checking blood glucose at home and bring blood glucose log to appointments. All questions, concerns answered and addressed. Encouraged to call office if persistent hypoglycemia/hyperglycemia on home glucose monitoring noted. Education: Check blood sugars daily, notify if <70 or >200. Take medications (pills or insulin) as directed. Monitor for s/s of hypoglycemia (sweaty, dizziness, nausea, vomiting, or shakiness). Watch for increase in thirst, urination, or appetite. Inspect feet frequently monitoring for open wounds , andalso recommend yearly eye exam. Pt should attempt to remain as physically active as chronic conditions allow, as well as trying to follow a diet low in carbohydrates, and simple sugars. HTN: Currently taking Is taking Amlodipine 5mg PO Daily. Checks BP at home; Averages are 120's. Slightly elevated in office today, but pt reports elevated BP readings are consistent with high pain days. Denies orthostatic changes, dizziness, cough, shortness of breath, swelling in extremities. Continue current regimen. Given BP log, advised pt to record BP and bring log back with them to next visit. Review of Systems Constitutional: Negative for activity [...] flank pain, frequency, hematuria and urgency. Musculoskeletal: Negative for arthralgias, gait problem, joint swelling and myalgias. Skin: Negative for rash. Neurological: Negative for dizziness, tremors, syncope, weakness, light- headedness and headaches. Psychiatric/Behavioral: Negative for decreased concentration and suicidal ideas. The patient is notnervous/anxious. Hematological: Does not bruise/bleed easily. Endocrine: Negative [...] Assessment/Plan Problem List Items Addressed This Visit Type 2 diabetes mellitus without complication (CMS/HCC) - Primary Currently taking Mounjaro 5mg and Metformin 1,000mg once daily. Most recent labs: hemoglobin A1C 7.7% Average FSBS range from BGs range between 120 and 130 Checks BG levels using: Dexcom Continuous BG monitor, Was given sample in office. No episode of hypoglycemia since stopping glipizide and decreasing metformin. No medication adverse effects reported by the patient. Patient educated on lifestyle modifications, dietary restrictions, signs and symptoms of hypoglycemia/hyperglycemia and importance of eating regular consistent meals. Stressed upon importance of checking blood glucose at home and bring blood glucose log to appointments. All questions, concerns answered and addressed. Encouraged to call office if persistent hypoglycemia/hyperglycemia on home glucose monitoring noted. Relevant Medications Continuous Glucose [employer] (Dexcom G7 [employer]) device Continuous Glucose Sensor (Dexcom G7 Sensor) [facility] Primary hypertension (CMS/HCC) Currently taking Is taking Amlodipine 5mg PO Daily. Checks BP at home; Averages are 120's. Slightly elevated in office today, but pt reports elevated BP readings are consistent with high pain days. Denies orthostatic changes, dizziness, cough, shortness of breath, swelling in extremities. Continue current regimen. Given BP log, advised pt to record BP and bring log back with them to next visit. Iron deficiency anemia secondary to inadequate dietary iron intake Relevant Medications ferrous sulfate (Fe Tabs) 325 (65 Fe) MG EC tablet [id number] Instructions* Patient Instructions* Denis Dunlap NP - 08/26/2024 2:30 PM EST Education: Check blood sugars daily, notify if <70 or >200. Take medications (pills or insulin) as directed. Monitor for s/s of hypoglycemia (sweaty, dizziness, nausea, vomiting, or shakiness). Watch for increase in thirst, urination, or appetite. Inspect feet frequently monitoring for open wounds , andalso recommend yearly eye exam. Pt should attempt to remain as physically active as chronic conditions allow, as well as trying to follow a diet low in carbohydrates, and simple sugars. Keep up the good work!!! Call me if you need anything!!! documented in this [facility]11[facility] History of Present illness Narrative* Denis Dunlap NP - 08/18/2024 1:59 PM EST Having hypoglycemic episodes X1 week. Did not [...] glucose levels returned <75 documented in this [facility]10[facility]28-[facility]24 Telephone encounter Note* Telephone Encounter - Chiara Dillon MA - 08/04/2024 9:54 AM EDT Pt needs a refill for his Symbicort. He also states he needs a new script for his Freestyle liv 2but not a sensor, he needs a new transmitter. REAL:07/22/2024 NOV:08/26/2024 [facility] [id number] Miscellaneous Notes* Telephone Encounter - Chiara Dillon MA - 08/04/2024 9:54 AM EDT Pt needs a refill for his Symbicort. He also states he needs a new script for his Freestyle liv 2but not a sensor, he needs a new transmitter. REAL:07/22/2024 NOV:08/26/2024 [facility] [id number] History of Present illness Narrative* Denis Dunlap NP - 07/28/2024 9:09 PM EDTAssociated Problem(s): Uncontrolled type 2 diabetes mellitus with hyperglycemia ([facility]) Is currently taking Mounjaro 5mg Metformin 1,000mg [...] feet frequently monitoring for open wounds , andalso recommend yearly eye exam. Pt should attempt to remain as physically active as chronic conditions allow, as well as trying to follow a diet low in carbohydrates, and simple sugars. * Denis Dunlap NP - 07/28/2024 9:08 PM EDTAssociated Problem(s): Class 3 severe obesity due to excess calories with serious comorbidity in adult ([facility]) Currently on Mounjaro 2.5mg Increased dose today [...] well as surgical options for weight loss. * Denis Dunlap NP - 07/28/2024 9:08 PM EDTAssociated Problem(s): Primary hypertension (CMS/HCC) Currently taking Is taking Amlodipine 5mg PO Daily. Checks BP at home; Averages are 120's. Denies orthostatic changes, dizziness, cough, shortness of breath, swelling in extremities. Continue current regimen. Given BP log, advised pt to record BP and bring log back with them to next visit. * Denis Dunlap NP - 07/28/2024 9:08 PM EDTAssociated Problem(s): Moderate persistent asthma without complication (CMS/HCC) Currently taking Symbicort. Reports needing to use rescue inhlaer 2-3 times per day recently. Feels asthma symptoms are not well controlled at this time. Will try adding Airsupra- ICS/NALLELY combo or (Fluticasone if insurance denies) Continue Symbicort as directed. * Denis Dunlap NP - 07/22/2024 4:15 PM EDTAssociated Problem(s): Hyperlipidemia (CMS/HCC) Lipid panel reviewed with patient. Triglycerides extremely elevated. Pt declines initiating statin therapy at this time. * Denis SUSIE Dunlap - 07/22/2024 3:30 PM EDT Images from the original note were not [...] Neurological: Negative for dizziness, tremors, syncope, weakness, light- headedness and headaches. Psychiatric/Behavioral: Negative for decreased concentration and suicidal ideas. The patient is notnervous/anxious. Hematological: Does not bruise/bleed easily. Endocrine: Negative [...] Problem List Items Addressed This Visit Hyperlipidemia ([facility]) Lipid panel reviewed with patient. Triglycerides extremely elevated. Pt declines initiating statin therapy at this time. Relevant Orders TSH W/REFLEX TO FT4 Lipid panel Moderate persistent asthma without complication ([facility]) - Primary Currently taking Symbicort. Reports needing to use rescue inhlaer 2-3 times per day recently. Feels asthma symptoms are not well controlled at this time. Will try adding Airsupra- ICS/NALLELY combo or (Fluticasone if insurance denies) Continue Symbicort as directed. Type 2 diabetes mellitus without complication ([facility]) Relevant Medications Tirzepatide (Mounjaro) 5 MG/0.5ML solution auto-injector Uncontrolled type 2 diabetes mellitus with hyperglycemia ([facility]) Is currently taking Mounjaro 5mg Metformin 1,000mg [...] feet frequently monitoring for open wounds , andalso recommend yearly eye exam. Pt should attempt to remain as physically active as chronic conditions allow, as well as trying to follow a diet low in carbohydrates, and simple sugars. Relevant Medications Tirzepatide (Mounjaro) 5 MG/0.5ML solution auto-injector Primary hypertension (CMS/HCC) Currently taking Is taking [...] neck and back pain documented in [facility] [id number] Telephone encounter Note* Telephone Encounter - Carmen Jones - 07/28/2024 9:16 AM EDT Patient said when he was here last week he asked for this prescription (pregabalin) to be refilled and it still hasn't been and now he is out. He uses [facility] for his pharmacy. [facility] [id number] Miscellaneous Notes* Telephone Encounter - Carmen Jones - 07/28/2024 9:16 AM EDT Patient said when he was here last week he asked for this prescription (pregabalin) to be refilled and it still hasn't been and now he is out. He uses [facility] for his pharmacy. documented in this [facility]10-15-[facility]24 Instructions* Patient Instructions* Denis Dunlap NP - 07/22/2024 3:30 PM EDT FASTING labs ordered. Nothing to eat or drink for 12 hours prior to blood draw. Water and black coffee ok. documented in this [facility]10-03-2024 Telephone encounter Note* Telephone Encounter - Chiara Dillon MA - 07/10/2024 11:27 AM EDT [facility] his order for the Lantus 40 units. Could you resend?? I spoke with pharmacy and they confirmed they never received the script. [facility] [id number] Miscellaneous Notes* Telephone Encounter - Chiara Dillon MA - 07/10/2024 11:27 AM EDT [facility] his order for the Lantus 40 units. Could you resend?? I spoke with pharmacy and they confirmed they never received the script. * Telephone Encounter - Chiara Dillon MA - 07/10/2024 9:03 AM EDT Attempted to return Pts call, Spoke to pharmacy yesterday, he needs to call his insurance. He also would like a refill on his Oxycodone REAL:06/26/2024 NOV:07/22/2024 documented in this [facility]10-[facility]24 Telephone encounter Note* Telephone Encounter - Chiara Dillon MA - 07/10/2024 9:03 AM EDT Attempted to return Pts call, Spoke to pharmacy yesterday, he needs to call his insurance. He also would like a refill on his Oxycodone REAL:06/26/2024 NOV:07/22/2024 [facility] [id number] Telephone encounter Note* Telephone Encounter - Chiara Dillon MA - 07/09/2024 10:10 AM EDT Spoke to pharmacy they stated it was not a refill issue, but a prior authorization issue and we need to contact the insurance company. [facility] [id number] Miscellaneous Notes* Telephone Encounter - Chiara Dillon MA - 07/09/2024 10:10 AM EDT Spoke to pharmacy they stated it was not a refill issue, but a prior authorization issue and we need to contact the insurance company. documented in this encounterMer[facility] [id number] History of Present illness Narrative* Denis Dunlap NP - 06/26/2024 12:36 PM EDTAssociated Problem(s): Class 3 severe obesity due to excess calories with serious comorbidity in adult ([facility]) Currently on Mounjaro 2.5mg Increased dose today [...] well as surgical options for weight loss. * Denis Dunlap NP - 06/26/2024 12:35 PM EDTAssociated Problem(s): Lumbar radiculopathy Follows Dr. Mckay @ [facility]- Will be having Spinal Stimulator implanted once cleared for surgery. Appt is scheduled for 07/04/24; Sees Dr. Cortez [facility]- Pain Management * Denis Dunlap NP - 06/26/2024 12:34 PM EDTAssociated Problem(s): Primary hypertension (CMS/HCC) Currently taking Is taking Amlodipine 5mg PO Daily. Checks BP at home; Averages are 120's. Denies orthostatic changes, dizziness, cough, shortness of breath, swelling in extremities. Continue current regimen. Given BP log, advised pt to record BP and bring log back with them to next visit. * Denis Dunlap NP - 06/26/2024 12:34 PM EDTAssociated Problem(s): Type 2 diabetes mellitus without complication (CMS/HCC) Was previously on Ozempic- stopped due to A1C not being regulated Is currently on Mounjaro 2.5mg Metformin 1,000mg BID Glipizide XL 10mg Daily Lantus 40u Nightly Started mounjaro 4 weeks ago 2.5mg Denies any adverse reactions or GI distress. Feels BG levels have improved drastically; Increase mounjaro today. Recheck A1C in 2 months. DM eye exam done- 11/2023 Most recent labs: hemoglobin A1C 11.5% 4 weeks ago PRIOR to starting Mounjaro. Average FSBS range from BGs have been labile ranging between 90 and 120 No episode of hypoglycemia No medication adverse [...] persistent hypoglycemia/hyperglycemia on home glucose monitoring noted. * Denis Dunlap NP - 06/26/2024 11:00 AM EDT Images from the original note were not included. Subjective Patient ID: Bhavesh Cárdenas is a 48 y.o. male who presents for Follow-up. HPI DM: Was previously on Ozempic- stopped due to A1C not being regulated Is currently on Mounjaro 2.5mg Metformin 1,000mg BID Glipizide XL 10mg Daily Lantus 40u Nightly Started mounjaro 4 weeks ago 2.5mg Denies any adverse reactions or GI distress. Feels BG levels have improved drastically; Increase mounjaro today. Recheck A1C in 2 months. DM eye exam done- 11/2023 Most recent labs: hemoglobin A1C 11.5% 4 weeks ago PRIOR to starting Mounjaro. Average FSBS range from BGs have been labile ranging between 90 and 120 No episode of hypoglycemia No medication adverse [...] persistent hypoglycemia/hyperglycemia on home glucose monitoring noted. Education: Check blood sugars daily, notify if <70 or >200. Take medications (pills or insulin) as directed. Monitor for s/s of hypoglycemia (sweaty, dizziness, nausea, vomiting, or shakiness). Watch for increase in thirst, urination, or appetite. Inspect feet frequently monitoring for open wounds , andalso recommend yearly eye exam. Pt should attempt to remain as physically active as chronic conditions allow, as well as trying to follow a diet low in carbohydrates, and simple sugars. HTN: Currently taking Is taking Amlodipine 5mg PO Daily. Checks BP at home; Averages are 120's. Denies orthostatic changes, dizziness, cough, shortness of breath, swelling in extremities. Continue current regimen. Given BP log, advised pt to record BP and bring log back with them to next visit. Lumbar Radiculopathy- follows Dr. Mckay @ [facility]- Will be having Spinal Stimulator implanted once cleared for surgery. Appt is scheduled for 07/04/24; Sees Dr. Cortez [facility]- Pain Management Review of Systems Constitutional: Negative for activity change, appetite change, chills, diaphoresis, fatigue, fever and unexpected weight change. HENT: Negative for congestion, ear pain, rhinorrhea, sinus pressure, sinus pain, sneezing, sore throat, trouble swallowing and voice change. Eyes: Negative for visual disturbance. Respiratory: Positive for cough and wheezing. Negative for chest tightness and shortness of breath. Cardiovascular: Negative for chest pain, palpitations and leg swelling. Gastrointestinal: Negative for abdominal distention, abdominal pain, blood in stool, constipation, diarrhea and vomiting. Genitourinary: Negative for decreased urine volume, dysuria, flank pain, frequency, hematuria and urgency. Musculoskeletal: Positive for back pain, gait problem and myalgias. Negative for arthralgias and joint swelling. Skin: Negative for rash. Neurological: Negative for dizziness, tremors, syncope, weakness, light- headedness and headaches. Psychiatric/Behavioral: Negative for decreased concentration and suicidal ideas. The patient is notnervous/anxious. Hematological: Does not bruise/bleed easily. Endocrine: Negative [...] normal. Palpations: Abdomen is soft. Musculoskeletal: General: Tenderness present. Normal range of motion. Cervical back: Normal range of motion. Skin: General: Skin is warm and dry. Capillary Refill: Capillary refill takes less than 2 seconds. Neurological: General: No focal deficit present. Mental Status: He is alert and oriented to person, place, and time. Psychiatric: Mood and Affect: Mood normal. Behavior: Behavior normal. Assessment/Plan Problem List Items Addressed This Visit Type 2 diabetes mellitus without complication (CMS/HCC) - Primary Was previously on Ozempic- stopped due to A1C not being regulated Is currently on Mounjaro 2.5mg Metformin 1,000mg BID Glipizide XL 10mg Daily Lantus 40u Nightly Started mounjaro 4 weeks ago 2.5mg Denies any adverse reactions or GI distress. Feels BG levels have improved drastically; Increase mounjaro today. Recheck A1C in 2 months. DM eye exam done- 11/2023 Most recent labs: hemoglobin A1C 11.5% 4 weeks ago PRIOR to starting Mounjaro. Average FSBS range from BGs have been labile ranging between 90 and 120 No episode of hypoglycemia No medication adverse [...] persistent hypoglycemia/hyperglycemia on home glucose monitoring noted. Relevant Medications Continuous Glucose Sensor (FreeStyle Liv 2 Sensor) misc Tirzepatide (Mounjaro) 5 MG/0.5ML solution pen-injector Other Relevant Orders Microalbumin / creatinine urine ratio Hemoglobin A1c Comprehensive metabolic panel CBC and differential Uncontrolled type 2 diabetes mellitus with hyperglycemia (CMS/HCC) Relevant Medications Continuous Glucose Sensor (FreeStyle Liv 2 Sensor) misc Tirzepatide (Mounjaro) 5 MG/0.5ML solution pen-injector insulin glargine (Lantus SoloStar) 100 UNIT/ML pen Other Relevant Orders Microalbumin / creatinine urine ratio Hemoglobin A1c Comprehensive metabolic panel CBC and differential Lumbar radiculopathy Follows Dr. Mckay @ [facility]- Will be having Spinal Stimulator implanted once cleared for surgery. Appt is scheduled for 07/04/24; Sees Dr. Cortez [facility]- Pain Management [facility] [id number] Instructions* Patient Instructions* Denis Dunlap NP - 06/26/2024 11:00 AM EDT Keep up the good work!!! Call if you need anything!!! documented in this [facility]Mer[facility] [id number] History of Present illness Narrative* DORIS Tran - 06/11/2024 12:40 PM EDT Subjective Bhavesh Cárdenas is a 48 y.o. year old male Chief Complaint Patient presents with Back Pain Leg Pain Tremors Past Medical History: Diagnosis Date Asthma (CMS/HCC) Asthma, moderate persistent (CMS/HCC) DDD (degenerative disc disease), lumbar Depression, major (CMS/HCC) Doing well with Cymbalta. DM (diabetes mellitus) (CMS/HCC) Using Metformin, glipizide and Trulicity Reviewed FSBS - ranging from 100-150 now No hypoglycemia. A1C 04/29 --> 7.5 Improved from >11 HLD (hyperlipidemia) ([facility]) Insomnia Obstructive sleep apnea, adult Prior hx of JUNG, not using CPAP. Can't recall how long ago was that Osteoarthritis Poorly controlled type 2 diabetes mellitus (CMS/HCC) Poorly controlled. Previously, he has been very hesitant to take medications or follow treatment plan A1C 12/28 -- 11 Now on Metformin, Glipizide and Trulicity. His blood glucose were at goal and was doing well but now they are above 300 on average since he got epidural steroid injection. I also noted that he has gained about 15 lbs & that he needs to work on lifestyle measures and change his diet. Right knee pain Right knee pain, locking, instability. Positive Mc Braga test. RLS (restless legs syndrome) on Requip. Symptoms well controlled Sacroiliac joint pain Thoracic back pain More or less persistent, can't get comfortable Thoracolumbar back pain Persistent of thoraco lumbar back pain, with periods of back spasm and shooting pain down to b/l LE. Progressively worsening with multiple ED visits He is now on Lyrica and Oxycodone for pain. Seen by Neurology - had EMG/NCV and MRI done. Results not available to review. Another ED visit - was given systemic steroid. Reports he has constant burning pain in midline lumbar region Past Surgical History: Procedure Laterality Date KNEE SURGERY x2 OTHER SURGICAL HISTORY Interventional pain procedure Family History Problem Relation Name Age of Onset Brain Aneurysm Mother Hypertension Mother Migraines Mother Prostate cancer Father Multiple sclerosis Father Other (CX) Father Social History Tobacco Use Smoking status: Former Types: Cigarettes Passive exposure: Never Smokeless tobacco: Not on file Substance Use Topics Alcohol use: Yes Alcohol/week: 4.0 standard drinks of alcohol Types: 4 Standard drinks or equivalent per week Comment: caffeine: 3-4 cups per day Medication Documentation Review Audit Reviewed by Phyllis Loving MA (Edger Tailer) on 06/11/24 at 1254 Medication Order Taking? Sig Documenting Provider Last Dose Status albuterol HFA 90 mcg/act inhaler [id number] Inhale 2 puffs every 4 (four) hours if needed for wheezing Shaikh Moi MD 05/27/242358 Albuterol-Budesonide (Airsupra) 90-80 MCG/ACT aerosol [id number] Inhale 2 puffs every 6 (six) hours if needed (wheezing, shortness of breath) Denis Dunlap NP Active amLODIPine (Norvasc) 5 MG tablet [id number] Take 1 tablet (5 mg) by mouth Daily Shaikh Moi MD Active budesonide-formoterol (Symbicort) 160-4.5 MCG/ACT inhaler [id number] Inhale 2 puffs in the morning and 2 puffs before bedtime. Shaikh Moi MD 05/27/242358 glipiZIDE XL (Glucotrol XL) 10 MG 24 hr tablet [id number] Take 1 tablet (10 mg) by mouth Daily Denis Dunlap NP Active insulin glargine (Lantus SoloStar) 100 UNIT/ML pen [id number] Inject 30 Units under the skin at bedtime Shaikh Moi MD Active metFORMIN (Glucophage) 1000 MG tablet [id number] Take 1 tablet (1,000 mg) by mouth in the morning and1 tablet (1,000 mg) in the evening. Take with meals. Shaikh Moi MD 05/27/24 235 OXcarbazepine (Trileptal) 300 MG tablet [id number] Take 1 tablet (300 mg) by mouth in the morning and1 tablet (300 mg) before bedtime. DORIS Tran Active oxyCODONE (Roxicodone) 5 MG immediate release tablet [id number] Take 2 tablets (10 mg) by mouth every6 (six) hours if needed for severe pain This is a 30 day supply Denis Dunlap NP Active pen needle 31G x 5 mm [facility] [id number] Use as instructed Shaikh Moi MD Active prazosin (Minipress) 1 MG capsule [id number] TAKE 1 CAPSULE BY MOUTH ONCE DAILY AT 6 PM Denis Dunlap NP Active pregabalin (Lyrica) 200 MG capsule [id number] Take 1 capsule (200 mg) by mouth in the morning and 1 capsule (200 mg) in the evening and 1 capsule (200 mg) before bedtime. Shaikh Moi MD Active rOPINIRole (Requip) 4 MG tablet [id number] Take 1 tablet (4 mg) by mouth at bedtime Shaikh Moi MDActive sertraline (Zoloft) 50 MG tablet [id number] Take 50 mg by mouth in the morning. Shaikh Moi MD Active Tirzepatide (Mounjaro) 2.5 MG/0.5ML solution pen-injector [id number] Inject 2.5 mg under the skin 1 (one) time per week Denis Dunlap NP Active tiZANidine (Zanaflex) 4 MG tablet [id number] 1 tablet orally bid DORIS Tran Active traZODone (Desyrel) 100 MG tablet [id number] Take 1 tablet by mouth at bedtime Shaikh Moi MD Active Patient is here today for follow-up of back and leg pain. I am following the plan of care established by the physician who is present in the office today. HPI BACK/LEG PAIN -FCE to review -neurosurgery is scheduled for 07/04 -states he will be getting a stimulator trial -on trileptal and tizanidine -increased both at last visit -states his symptoms are the same -does notice when he is out of them so he feels they do help -pain located from top of back to the low back -pain shoots up neck and down legs -states his right leg has started to drag -feels like a sharp and burning pain -pain is worse with walking -pain is constant and varies in intensity -balance is so so -ambulates with cane -denies any recent falls -he was seen by vascular services who told him he had incompetent valves and restless leg syndrome -he is wearing compression socks and is unsure if they help TREMOR/MYOCLONUS -located in MAYURI hands -right hand worse than right -notices mostly in the morning -continues to have involuntary jerking -causing him to throw things -trouble with fine motor skills -dropping things -reports numbness in his finger tips ROS Review of Systems Constitutional: Negative. Respiratory: Negative. Cardiovascular: Negative. Gastrointestinal: Negative. Musculoskeletal: Positive for back pain, gait problem and neck pain. Neurological: Positive for tremors and weakness. Objective Visit Vitals BP 114/74 Pulse 76 Resp 16 Ht 5' 4 Wt 233 lb SpO2 96% BMI 39.99 kg/m Smoking Status Former BSA 2.19 m Neurological Exam Mental Status Awake, alert and oriented to person, place and time. Recent and remote memory are intact. Speech isnormal. Language is fluent with no aphasia. Attention and concentration are normal. Fund of knowledge is appropriate for level of education. Cranial Nerves CN II: Visual acuity is normal. Visual anaya full to confrontation. CN III, IV, : Extraocular movements intact bilaterally. Normal lids and orbits bilaterally. Pupils equal round and reactive to light bilaterally. CN V: Facial sensation is normal. CN VII: Full and symmetric facial movement. CN VIII: Hearing is normal. CN IX, X: Palate elevates symmetrically CN XI: Shoulder shrug strength is normal. CN XII: Tongue midline without atrophy or fasciculations. Motor Normal muscle bulk throughout. Normal muscle tone. No abnormal involuntary movements. Gait Casual gait is normal including stance, stride, and arm swing. 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 RLE Strength illopsoas, quadriceps, tibialis anterior, and gastrocnemius strength 5/5. LLE Strength illopsoas, quadriceps, tibialis anterior, and gastrocnemius strength 5/5. Tone Normal tone x4 extremities. Reflexes: RUE biceps reflex 3, brachioradialis reflex 3 LUE biceps reflex 3, brachioradialis reflex 3 RLE knee reflex 3, ankle reflex 3 LLE knee reflex 3, ankle reflex 3 Previously noted: Garcia's Sign , positive bilaterally. Bilateral cross adductor. Heart: Regular rate and rhythm Assessment and Plan Diagnoses and all orders for this visit: Other osteoarthritis of spine, lumbar region Lumbar radiculopathy Paresthesia Weakness 48-year-old male who was initially evaluated here 04/2023 at the request of Dr. Prater for back pain. Medical history includes chronic back pain, restless leg syndrome, hyperlipidemia, diabetes mellitus type 2, asthma, and depression. Historically he has seen pain management and received epidural injections as well as radioablation with minimal to no relief. He had an appointment coming up at [facility] pain management offered him ketamine treatments, but he stated he cannot drive the [place] for 5 days in a row. Patient's pain is widespread and does not follow any 1 particular nerve dermatome. EMG and MRIs as below. Patient continues to have generalized pain. He states pain has worsened in the last year to the point where he is unable to function normally. Has difficulty with ADLs. Difficulty ambulating. He doesuse a cane. He is now reporting pain in the right lateral calf and was sounds like a flapping type tremor or a myoclonic type jerk. The myoclonic-type movement is more in his hands. This has lessenedwith the addition of trileptal and zanaflex. He had an FCE that recommended neurosurgery opinion. He has since been seen by neurosurgery and is having a stimulator trial 07/04/2024. Tried cymbalta, gabapentin, lyrica flexeril years ago, he can't take NSAIDs due to anaphylaxis epidural at [facility] in January 2023 with relief for 2-3 days. Prior evaluation: 1. December 2022 BMP unremarkable with exception of glucose 197 2. Total cholesterol 217, triglycerides 218, HDL 40, LDL 133 3. CBC normal 4. X-ray of lumbar spine in January 2023 was nonacute. Subtle concavity and sclerosis noted at the superior endplate of L3 and L4. Minor degenerative facet disease. 5. MRI scan of the lumbar spine completed in August 2022 showed early degenerative changes at L4-5 without focal protrusion or neural impingement. At L5-S1 there is marked right, moderate left foraminal narrowing without significant central canal narrowing. Moderate diffuse disc bulging and mild disc height reduction. Mild degenerative facet arthropathy bilaterally. 1. EMG of bilateral upper extremities on 05/15/23 was normal 2. EMG bilateral lower extremities on 04/30/23 consistent with S1 radiculopathy which is mild in degree on the right. No polyneuropathy. 3. MRI cervical spine on 05/16/23 showed mild degenerative disease at multiple levels with no significant stenosis. 4. MRI thoracic spine was unremarkable 1. MRI lumbar on 06/22/23 showed L4-L5 circumferential disc bulge with facet hypertrophy. There is mild narrowing of spinal canal with mild bilateral neural foraminal narrowing. This is similar to the prior exam. At L5-S1: There is a circumferential disc bulge with facet hypertrophy. There is mild spinal canal stenosis with moderate to severe left and severe right neural foraminal narrowing. Is mass effect on theexiting L5 nerve roots, right greater than left. This is similar to the prior exam. PLAN Adjust trileptal to 300mg 1 tab PO QAM and 1 1/2 tab PO at bedtime for neuropathic pain and potentially tremor Continue jasonflex 4mg 1 tab PO BID for muscle spasms Patient was counseled on potential medication side effects Follow through with appointment for stimulator placement Patient prefers to follow up with this clinic in 6-12 months or sooner for new or worsening symptoms documented in this encounterMer[facility], [facility] [id number] History of Present illness Narrative* Denis Dunlap NP - 05/27/2024 12:19 PM EDTAssociated Problem(s): Class 3 severe obesity due to excess calories with serious comorbidity in adult (CMS/[facility]) Discussed with patient their BMI (actual, verses recommended). We have also discussed lifestyle modifications: attempts to perform physical activity as chronic conditions allow, also to monitor dietary intake: increasing protein/fruits/veggies and lowering carb intake (unless contraindicated). Limit sodas, juices, and sugary drinks. Also discussed oral medications that can be utilized for weight loss, as well as surgical options for weight loss. * Denis Dunlap NP - 05/27/2024 12:14 PM EDTAssociated Problem(s): Encounter for monitoring opioid maintenance therapy Currently taking Oxycodone 10mg Q6hrs PRN pain Patient advised he would like to begin decreasing this medication and with the goal of ultimately stopping after spinal cord stimulator is placed. I am agreeable with this pain. Discussed in detail the risks associated with correction chronic opiod use. CSA singed Drug screen ordered. OARRS reviewed. No concern for misuse/abuse or diversion C/w close monitoring. * Denis Dunlap NP - 05/27/2024 12:13 PM EDTAssociated Problem(s): Hyperlipidemia (CMS/[facility]) Lipid panel ordered today. Counseled on diet. Will consider adding statin therapy at next visit if indicated. * Denis Dunlap NP - 05/27/2024 12:12 PM EDTAssociated Problem(s): Uncontrolled type 2 diabetes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 He was referred by Olayinka Boyd [id number] [facility] [address]. Chief complaint: Center of back pain that [...] doctor and was seen by rheumatology. 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 He started physical therapy In 2020 the patient was sent to a L5-S1 for radiofrequency ablation that were not helpful. The diagnostic blocks was done as well. This was done at [place] [facility]. The patient tried to tolerate [...] patient was seen by neurosurgery here at [facility] and not deemed an appropriate surgical candidate. [...] Denies CHF: Denies Uncontrolled HTN: Denies Recent WA: Denies Arrythmias: Denies Afib: Denies Hyperthyroid: Denies [...] [facility] History of Present illness Narrative* Kb Lorenzo DO - 11/15/2022 1:55 PM EST THE [facility] for Comprehensive Pain Recovery [facility] [place] November 15, 2022 This is a in-person visit. 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 He was referred by Olayinka Boyd [address] [facility] [id number]. Chief complaint: Center of back pain that [...] doctor and was seen by rheumatology. 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 He started physical therapy In 2020 the patient was sent to a L5-S1 for radiofrequency ablation that were not helpful. The diagnostic blocks was done as well. This was doneat [facility]. The patient tried to tolerate [...] patient was seen by neurosurgery here at [facility] and not deemed an appropriate surgical candidate. [...] Denies CHF: Denies Uncontrolled HTN: Denies Recent WA: Denies Arrythmias: Denies Afib: Denies Hyperthyroid: Denies [...] which included preparing to see the patient, [id number] patient care, completing clinical documentation, obtaining and/or reviewing separately obtained history, performing a medically appropriate examination, counseling and educating the pat ient/family/caregiver, and ordering medications, tests, or procedures. Important Patient Information: 1. To schedule Pain Recovery appointments or post-injection office visits, please call: [phone] 2. The nursing staff and medical assistants are an integral part of your pain recovery team and will be handling your phone calls and inquiries. 3. Your study results and treatment plan will be discussed during a follow-up appointment. If you do not have a follow-up appointment and wish to discuss any issues directly with me, please call: [phone] to set-up an appointment. 4. MyChart is best used for refill requests or yes or no questions. Anything more complicated will likely require a follow-up appointment that you can schedule by [phone]. 5. It is the practice of the [...] there is an opening. documented in this encounterK[facility]01-23-2023 NoteHNO ID: [id number] Author: RT Tyson(R) Service: ? Author Type: [...] BY: RT Tyson(R) October 30, 2022 10:35 [facility]01-23-2023 NoteHNO ID: [id number] Author: Santana Harris MD Service: ? Author Type: Physician Type: Progress Notes Filed: 10/30/2022 10:20 AM Note Text: ref: Shaikh Moi [address] [place] [address] I have been asked to see Bhavesh Cárdenas for Osteoarthritis by Shaikh Moi [address] [facility] [address] HPI: Back pain for most of his lef. On the right side, just above the buttocks. The past six months it is painful picking up 24 pack of water. Leg drags on R a couple of times. Has fallen a couple of times. [place] like it lost control while walking. 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 Hands swell. Has pain worse first [...] Hospital 10-30-2022 History of Present illness Narrative* RT [...] 30, 2022 10:35 AM documented in this encounterK[facility]01-23-2023 History of Present illness Narrative* Santana Harris MD - 10/30/2022 9:00 AM EST ref: Shaikh Moi [address] [place] [place] [address] I have been asked to see Bhavesh Cárdenas for Osteoarthritis by Shaikh Moi [address] [place] [address] HPI: Back pain for most of his lef. On the right side, just above the buttocks. The past six months it is painful picking up 24 pack of water. Leg drags on R a couple of times. Has fallen a couple of times. [place] like it lost control while walking. 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 Hands swell. Has pain worse first [...] results of this consult [place] [address] via the electronic medical record documented in this encounterK[facility] Health01-12-2023 NoteHNO ID: [id number] Author: Olayinka Boyd PA-C Service: ? 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 Fontanez, to discuss further treatment options including possibly injections. [facility] Other 12-20-2022 Evaluation note* Encounter Date Diagnosis [...] of right sacroiliac joint (ICD-10 - M46.1) [facility] Other 10-13-2022 Evaluation note* Encounter Date Diagnosis Assessment Notes Treatment Notes Treatment Clinical Notes Jul, Patellofemoral arthritis of right knee (ICD-10 - M17.11) Jul, Acute pain of right knee (ICD-10 - M25.561) Jul, Internal derangement of right knee (ICD-10 - M23.91) [facility] xrays and MRI reviewed with patient. We [...] new MRI for evaluation for meniscal tear. [facility] Other 10-06-2022 NotePROCEDURE: XR KNEE RT 4V or > COMPARISON: 11/16/2021 HISTORY: Pain in right knee FINDINGS: BONES:No fracture, acute abnormality, or significant arthropathy. SOFT TISSUES:Negative. No visible soft tissue swelling. EFFUSION:None visible. OTHER: Negative. IMPRESSION: No acute abnormality Electronically authenticated by: WASHINGTON DURAN Date: 2022-07-13 14:[address] [place], [place] [address]11-01-2021 History general Narrative - Reported* Type Description Date Medical History restless leg syndrome Medical History seasonal allergies Medical History DM Surgical History left knee surgery x 2 Surgical History L1-L5 ablation 08/2021 Hospitalization History No know Hospitalization history [facility] Other Evaluation + Plan note Future Appointments Appointment Date:01/29/2025 08:45:00 AM Scheduled Provider: Location:.[place] Appointment Type:PT [place] 30 (FT) Appointment Date:02/03/2025 10:15:00 AM Scheduled Provider: Location:.[place] Appointment Type:PT [place] 30 (FT) Appointment Date:02/05/2025 09:45:00 AM Scheduled Provider: Location:.[place] Appointment Type:PT [place] 30 (FT) Appointment Date:02/10/2025 09:15:00 AM Scheduled Provider: Location:.[place] Appointment Type:PT [place] 30 (FT) Appointment Date:02/12/2025 09:15:00 AM Scheduled Provider: Location:.[place] Appointment Type:PT [place] 30 (FT) Appointment Date:02/17/2025 09:15:00 AM Scheduled Provider: Location[place] Appointment Type:PT [place] 30 (FT) Appointment Date:02/19/2025 08:45:00 AM Scheduled Provider: Location:.[place] Appointment Type:PT [place] 30 (FT) Appointment Date:02/19/2025 09:30:00 AM Scheduled Provider: Location:[place]ICAL [place] Appointment Type:PT Re-Eval 30 (FT) [facility] Evtggation noteNo assessment information [facility] Work Phone: evaluation note* Diagnosis Chronic bilateral low back pain without sciatica- Primary [facility]* Diagnosis Localized, primary osteoarthritis of hand, unspecified laterality- Primary Arthritis Arthropathy, unspecified, site unspecified Chronic right-sided low back pain without sciatica [facility]* Diagnosis Localized, primary osteoarthritis of hand, unspecified laterality Arthritis Arthropathy, unspecified, site unspecified Chronic right-sided low back pain without sciatica documented [facility] noteNo InformationNocass medical center [email or web address] Other Evaluation note* Diagnosis Chronic pain syndrome- Primary Chronic bilateral low back pain without sciatica Disturbance of sleep pattern associated with pain Lumbar spondylosis Lumbosacral spondylosis without myelopathy Sacroiliitis (HCC) Sacroiliitis, not elsewhere classified Sacroiliitis (HCC) Sacroiliitis, not elsewhere classified documented [facility]* Diagnosis APPOINTMENT CANCELLED- Primary Sacroiliitis (HCC) Sacroiliitis, not elsewhere classified documented [facility]* Diagnosis Pain disorder associated with psychological factors and medical condition- Primary Other pain disorders related to psychological factors Chronic pain syndrome Sacroiliitis (HCC) Sacroiliitis, not elsewhere classified documented [facility]* Diagnosis Moderate persistent asthma without complication (CMS/HCC)- Primary documented in this encounter [facility] HealthcareEvaluation note* Diagnosis Metabolic syndrome X- Primary Dysmetabolic Syndrome X Pure hypertriglyceridemia (CMS/HCC) documented in this encounter [facility] HealthcareEvaluation note* Diagnosis Uncontrolled type 2 diabetes mellitus with hyperglycemia (CMS/HCC)- Primary Chronic neck and back pain Primary hypertension (CMS/HCC) Unspecified essential hypertension Low back pain of thoracolumbar region with sciatica documented in this encounter [facility] HealthcareEvaluation note* Diagnosis Metabolic syndrome X- Primary Dysmetabolic Syndrome X Uncontrolled type 2 diabetes mellitus with hyperglycemia ([facility]/HCC) Class 3 severe obesity due to excess calories with serious comorbidity and body mass index (BMI) of 40.0 to 44.9 in adult ([facility]) documented in this encounter [facility] HealthcareEvaluation note* Diagnosis Uncontrolled type 2 diabetes mellitus with hyperglycemia (CMS/HCC) documented in this encounter [facility] HealthcareEvaluation note* Diagnosis Chronic pain syndrome- Primary RLS (restless legs syndrome) Restless legs syndrome (RLS) documented in this encounter [facility] HealthcareEvaluation note* Diagnosis Type 2 diabetes mellitus without complication, without long-term current use of insulin ([facility])- Primary RLS (restless legs syndrome) Restless legs syndrome (RLS) Hyperlipidemia, unspecified hyperlipidemia type (CMS/HCC) Primary hypertension ([facility]) Unspecified essential hypertension Moderate persistent asthma without complication ([facility]) Class 3 severe obesity due to excess calories with serious comorbidity and body mass index (BMI) of 40.0 to 44.9 in adult ([facility]) Uncontrolled type 2 diabetes mellitus with hyperglycemia [...] complication, with long-term current use of insulin (CMS/[facility]) Chronic neck and back pain Uncontrolled type 2 diabetes mellitus with hyperglycemia (CMS/HCC)- Primary Primary hypertension ([facility]/HCC) Unspecified essential hypertension Chronic neck and back [...] essential hypertension Moderate persistent asthma without complication ([facility]) Class 3 severe obesity due to excess calories with serious comorbidity and body mass index (BMI) of 40.0 to 44.9 in adult ([facility]) Mixed hyperlipidemia ([facility]) Mixed hyperlipidemia Encounter for monitoring opioid maintenance therapy Chronic neck and back pain Chronic pain syndrome Type 2 diabetes mellitus without complication, with long-term current use of insulin ([facility])- Primary Uncontrolled type 2 diabetes mellitus with hyperglycemia ([facility]) Lumbar radiculopathy Thoracic or lumbosacral neuritis or radiculitis, unspecified Chronic neck and back pain Primary hypertension ([facility]) Unspecified essential hypertension Moderate persistent asthma without complication ([facility])- Primary Chronic neck and back pain Primary hypertension ([facility]) Unspecified essential hypertension Type 2 diabetes mellitus without complication, with long-term current use of insulin ([facility]) Uncontrolled type 2 diabetes mellitus with hyperglycemia ([facility]) Mixed hyperlipidemia ([facility]) Mixed hyperlipidemia documented in this encounter [facility] HealthcareEvaluation note* Diagnosis Type 2 diabetes mellitus without complication, without long-term current use of insulin ([facility])- Primary RLS (restless legs syndrome) Restless legs syndrome (RLS) Hyperlipidemia, unspecified hyperlipidemia type ([facility]) Primary hypertension ([facility] Unspecified essential hypertension Moderate persistent asthma without complication ([facility]) Class 3 severe obesity due to excess calories with serious comorbidity and body mass index (BMI) of 40.0 to 44.9 in adult ([facility]) Uncontrolled type 2 diabetes mellitus with hyperglycemia ([facility])- Primary Chronic neck and back pain Primary hypertension ([facility] Unspecified essential hypertension Low back pain of thoracolumbar region with sciatica Moderate persistent asthma without complication ([facility])- Primary Primary hypertension ([facility]) Unspecified essential hypertension Uncontrolled type 2 diabetes mellitus with hyperglycemia ([facility]) Low back pain of thoracolumbar region with sciatica Type 2 diabetes mellitus without complication, with long-term current use of insulin ([facility]) Chronic neck and back pain Uncontrolled type 2 diabetes mellitus with hyperglycemia ([facility])- Primary Primary hypertension ([facility]) Unspecified essential hypertension Chronic neck and back pain Low back pain of thoracolumbar region with sciatica Encounter for monitoring opioid maintenance therapy Uncontrolled type 2 diabetes mellitus with hyperglycemia ([facility])- Primary Periodic limb movement Periodic limb movement disorder Restless legs syndrome Restless legs syndrome (RLS) Uncontrolled type 2 diabetes mellitus with hyperglycemia ([facility]/HCC)- Primary Hyperlipidemia, unspecified hyperlipidemia type ([facility]/HCC) Low back pain of thoracolumbar region with sciatica Primary hypertension ([facility]/HCC) Unspecified essential hypertension Chronic neck and back pain Uncontrolled type 2 diabetes mellitus with hyperglycemia ([facility]/HCC)- Primary Primary hypertension ([facility]/HCC) Unspecified essential hypertension Moderate persistent asthma without complication ([facility]) Class 3 severe obesity due to excess calories with serious comorbidity and body mass index (BMI) of 40.0 to 44.9 in adult ([facility]) Mixed hyperlipidemia ([facility]) Mixed hyperlipidemia Encounter for monitoring opioid maintenance therapy Chronic neck and back pain Chronic pain syndrome Type 2 diabetes mellitus without complication, with long-term current use of insulin ([facility])- Primary Uncontrolled type 2 diabetes mellitus with hyperglycemia ([facility]) Lumbar radiculopathy Thoracic or lumbosacral neuritis or radiculitis, unspecified Moderate persistent asthma without complication ([facility] [place])- Primary Chronic neck and back pain Primary hypertension ([facility]) Unspecified essential hypertension Type 2 diabetes mellitus without complication, with long-term current use of insulin ([facility] [place]) Uncontrolled type 2 diabetes mellitus with hyperglycemia ([facility] [place]) Mixed hyperlipidemia ([facility] [place]) Mixed hyperlipidemia Class 3 severe obesity due to excess calories with serious comorbidity and body mass index (BMI) of 40.0 to 44.9 in adult ([facility] [place]) documented in this encounter [facility]* Diagnosis Type 2 diabetes mellitus without complication, without long-term current use of insulin ([facility] [place])- Primary RLS (restless legs syndrome) Restless legs syndrome (RLS) Hyperlipidemia, unspecified hyperlipidemia type ([facility] [place]/HCC) Primary hypertension ([facility] [place]) Unspecified essential hypertension Moderate persistent asthma without complication ([facility] [place]) Class 3 severe obesity due to excess calories with serious comorbidity and body mass index (BMI) of 40.0 to 44.9 in adult ([facility] [place]) Uncontrolled type 2 diabetes mellitus with hyperglycemia ([facility] [place]/HCC)- Primary Chronic neck and back pain Primary hypertension ([facility] [place]/HCC) Unspecified essential hypertension Low back pain of thoracolumbar region with sciatica Moderate persistent asthma without complication ([facility] [place])- Primary Primary hypertension ([facility] [place]) Unspecified essential hypertension Uncontrolled type 2 diabetes mellitus with hyperglycemia ([facility] [place]) Low back pain of thoracolumbar region with [...] (BMI) of 40.0 to 44.9 in adult ([facility]) Moderate persistent asthma without complication (CMS/HCC) documented in this encounter [facility] HealthcareEvaluation note* Diagnosis Type 2 diabetes [...] (BMI) of 40.0 to 44.9 in adult ([facility] [place]) Uncontrolled type 2 diabetes mellitus with hyperglycemia [...] (BMI) of 40.0 to 44.9 in adult ([facility] [place]) Mixed hyperlipidemia (CMS/HCC) Mixed hyperlipidemia Encounter for [...] (BMI) of 40.0 to 44.9 in adult ([facility] [place]) Type 2 diabetes mellitus without complication, with long-term current use of insulin ([facility] [place]) Uncontrolled type 2 diabetes mellitus with hyperglycemia ([facility] [place]) Moderate persistent asthma without complication ([facility] [place]) documented in this encounter [facility] HealthcareEvaluation note* Diagnosis Type 2 diabetes mellitus without complication, without long-term current use of insulin ([facility] [place])- Primary RLS (restless legs syndrome) Restless legs syndrome (RLS) Hyperlipidemia, unspecified hyperlipidemia type ([facility] [place]/HCC) Primary hypertension ([facility] [place]) Unspecified essential hypertension Moderate persistent asthma without complication ([facility] [place]) Class 3 severe obesity due to excess calories with serious comorbidity and body mass index (BMI) of 40.0 to 44.9 in adult ([facility] [place]) Uncontrolled type 2 diabetes mellitus with hyperglycemia ([facility] [place])- Primary Chronic neck and back pain Primary hypertension ([facility] [place]) Unspecified essential hypertension Low back pain of thoracolumbar region with sciatica Moderate persistent asthma without complication ([facility] [place])- Primary Primary hypertension ([facility] [place]) [facility]specified essential hypertension Uncontrolled type 2 diabetes mellitus with hyperglycemia ([facility] [place]) Low back pain of thoracolumbar region with sciatica Type 2 diabetes mellitus without complication, with long-term current use of insulin ([facility] [place]) Chronic neck and back pain Uncontrolled type 2 diabetes mellitus with hyperglycemia ([facility] [place]/HCC)- Primary Primary hypertension ([facility] [place]) Unspecified essential hypertension Chronic neck and back pain Low back pain of thoracolumbar region with sciatica Encounter for monitoring opioid maintenance therapy Uncontrolled type 2 diabetes mellitus with hyperglycemia ([facility] [place]/HCC)- Primary Periodic limb movement Periodic limb movement disorder Restless legs syndrome Restless legs syndrome (RLS) Uncontrolled type 2 diabetes mellitus with hyperglycemia ([facility] [place]/HCC)- Primary Hyperlipidemia, unspecified hyperlipidemia type ([facility] [place]) Low back pain of thoracolumbar region with sciatica Primary hypertension ([facility] [place]/HCC) Unspecified essential hypertension Chronic neck and back pain Uncontrolled type 2 diabetes mellitus with hyperglycemia ([facility] [place]/HCC)- Primary Primary hypertension ([facility] [place]) Unspecified essential hypertension Moderate persistent asthma without complication ([facility] [place]) Class 3 severe obesity due to excess calories with serious comorbidity and body mass index (BMI) of 40.0 to 44.9 in adult ([facility] [place]) Mixed hyperlipidemia ([facility] [place]) Mixed hyperlipidemia Encounter for monitoring opioid maintenance therapy Chronic neck and back pain Chronic pain syndrome Type 2 diabetes mellitus without complication, with long-term current use of insulin ([facility] [place])- Primary Uncontrolled type 2 diabetes mellitus with hyperglycemia (CMS/[facility]) Lumbar radiculopathy Thoracic or lumbosacral neuritis or radiculitis, unspecified Moderate persistent asthma without complication ([facility] [place])- Primary Chronic neck and back pain Primary hypertension ([facility] [place]) Unspecified essential hypertension Type 2 diabetes mellitus without complication, with long-term current use of insulin ([facility] [place]) Uncontrolled type 2 diabetes mellitus with hyperglycemia ([facility] [place] Mixed hyperlipidemia ([facility] [place]) Mixed hyperlipidemia Class 3 severe obesity due to excess calories with serious comorbidity and body mass index (BMI) of 40.0 to 44.9 in adult ([facility] [place]) Moderate persistent asthma without complication ([facility] [place]) documented in this encounter [facility] HealthcareEvaluation note* Diagnosis Type 2 diabetes mellitus without complication, without long-term current use of insulin ([facility] [place])- Primary RLS (restless legs syndrome) Restless legs syndrome (RLS) Hyperlipidemia, unspecified hyperlipidemia type ([facility] [place]) Primary hypertension ([facility] [place]) Unspecified essential hypertension Moderate persistent asthma without complication ([facility] [place]) Class 3 severe obesity due to excess calories with serious comorbidity and body mass index (BMI) of 40.0 to 44.9 in adult ([facility] [place]) Uncontrolled type 2 diabetes mellitus with hyperglycemia ([facility] [place])- Primary Chronic neck and back pain Primary hypertension ([facility] [place]) [facility]specified essential hypertension Low back pain of thoracolumbar region with sciatica Moderate persistent asthma without complication ([facility] [place])- Primary Primary hypertension ([facility] [place]) Unspecified essential hypertension Uncontrolled type 2 diabetes mellitus with hyperglycemia ([facility] [place]) Low back pain of thoracolumbar region with sciatica Type 2 diabetes mellitus without complication, with long-term current use of insulin ([facility] [place]) Chronic neck and back pain Uncontrolled type 2 diabetes mellitus with hyperglycemia ([facility] [place])- Primary Primary hypertension ([facility] [place]) Unspecified essential hypertension Chronic neck and back pain Low back pain of thoracolumbar region with sciatica Encounter for monitoring opioid maintenance therapy Uncontrolled type 2 diabetes mellitus with hyperglycemia ([facility] [place])- Primary Periodic limb movement Periodic limb movement disorder Restless legs syndrome Restless legs syndrome (RLS) Uncontrolled type 2 diabetes mellitus with hyperglycemia ([facility] [place]/HCC)- Primary Hyperlipidemia, unspecified hyperlipidemia type ([facility] [place]) Low back pain of thoracolumbar region with sciatica Primary hypertension ([facility] [place]) Unspecified essential hypertension Chronic neck and back pain Uncontrolled type 2 diabetes mellitus with hyperglycemia ([facility] [place])- Primary Primary hypertension ([facility] [place]) Unspecified essential hypertension Moderate persistent asthma without complication ([facility] [place]) Class 3 severe obesity due to excess calories with serious comorbidity and body mass index (BMI) of 40.0 to 44.9 in adult ([facility] [place]) Mixed hyperlipidemia ([facility] [place]) Mixed hyperlipidemia Encounter for monitoring opioid maintenance therapy Chronic neck and back pain Chronic pain syndrome Type 2 diabetes mellitus without complication, with long-term current use of insulin ([facility] [place])- Primary Uncontrolled type 2 diabetes mellitus with hyperglycemia ([facility] [place]) Lumbar radiculopathy Thoracic or lumbosacral neuritis or radiculitis, unspecified Moderate persistent asthma without complication ([facility] [place])- Primary Chronic neck and back pain Primary hypertension ([facility] [place]) Unspecified essential hypertension Type 2 diabetes mellitus without complication, with long-term current use of insulin ([facility] [place]) Uncontrolled type 2 diabetes mellitus with hyperglycemia ([facility] [place] Mixed hyperlipidemia ([facility] [place]) Mixed hyperlipidemia Class 3 severe obesity due to excess calories with serious comorbidity and body mass index (BMI) of 40.0 to 44.9 in adult ([facility] [place]) Type 2 diabetes mellitus without complication, without long-term current use of insulin ([facility] [place]) documented in this encounter [facility]* Diagnosis Type 2 diabetes mellitus without complication, without long-term current use of insulin ([facility] [place]/[facility])- Primary RLS (restless legs syndrome) Restless legs syndrome (RLS) Hyperlipidemia, unspecified hyperlipidemia type ([facility] [place]) Primary hypertension ([facility] [place]) Unspecified essential hypertension Moderate persistent asthma without complication ([facility] [place]) Class 3 severe obesity due to excess calories with serious comorbidity and body mass index (BMI) of 40.0 to 44.9 in adult ([facility] [place]) Uncontrolled type 2 diabetes mellitus with hyperglycemia ([facility] [place])- Primary Chronic neck and back pain Primary hypertension ([facility] [place]specified essential hypertension Low back pain of thoracolumbar region with sciatica Moderate persistent asthma without complication ([facility] [place])- Primary Primary hypertension (CMS/HCC) Unspecified essential hypertension [...] essential hypertension Moderate persistent asthma without complication ([facility] [place]) Class 3 severe obesity due to excess calories with serious comorbidity and body mass index (BMI) of 40.0 to 44.9 in adult ([facility] [place]/[facility]) Mixed hyperlipidemia (CMS/HCC) Mixed hyperlipidemia Encounter for [...] diabetes mellitus with hyperglycemia (CMS/HCC) Mixed hyperlipidemia ([facility] [place]/[facility]) Mixed hyperlipidemia Class 3 severe obesity due to excess calories with serious comorbidity and body mass index (BMI) of 40.0 to 44.9 in adult ([facility] [place]/[facility]) Anemia, unspecified type- Primary Type 2 diabetes mellitus without complication, without long-term current use of insulin (CMS/HCC)- Primary Iron deficiency anemia secondary to inadequate dietary iron intake Primary hypertension (CMS/HCC) Unspecified essential hypertension documented in this encounter [facility] HealthcareEvaluation note* Diagnosis Type 2 diabetes mellitus without complication, without long-term current use of insulin ([facility] [place]/[facility])- Primary RLS (restless legs syndrome) Restless legs syndrome (RLS) Hyperlipidemia, unspecified hyperlipidemia type (CMS/HCC) Primary hypertension (CMS/HCC) Unspecified essential hypertension Moderate persistent asthma without complication (CMS/[facility]) Class 3 severe obesity due to excess calories with serious comorbidity and body mass index (BMI) of 40.0 to 44.9 in adult ([facility] [place]) Uncontrolled type 2 diabetes mellitus with hyperglycemia [...] complication, with long-term current use of insulin ([facility] [place]) Chronic neck and back pain Uncontrolled type [...] essential hypertension Moderate persistent asthma without complication ([facility] [place]) Class 3 severe obesity due to excess calories with serious comorbidity and body mass index (BMI) of 40.0 to 44.9 in adult ([facility] [place]) Mixed hyperlipidemia ([facility] [place]) Mixed hyperlipidemia Encounter for monitoring opioid maintenance therapy Chronic neck and back pain Chronic pain syndrome Type 2 diabetes mellitus without complication, with long-term current use of insulin ([facility] [place]/[facility])- Primary Uncontrolled type 2 diabetes mellitus with hyperglycemia (CMS/HCC) Lumbar radiculopathy Thoracic or lumbosacral neuritis or radiculitis, unspecified Moderate persistent asthma without complication (CMS/HCC)- Primary Chronic neck and back pain Primary hypertension (CMS/HCC) Unspecified essential hypertension Type 2 diabetes mellitus without complication, with long-term current use of insulin ([facility] [place]) Uncontrolled type 2 diabetes mellitus with hyperglycemia (CMS/HCC) Mixed hyperlipidemia (CMS/HCC) Mixed hyperlipidemia Class 3 severe obesity due to excess calories with serious comorbidity and body mass index (BMI) of 40.0 to 44.9 in adult ([facility] [place]) Chronic pain syndrome Type 2 diabetes mellitus without complication, without long-term current use of insulin ([facility] [place])- Primary Iron deficiency anemia secondary to inadequate dietary iron intake Primary hypertension ([facility] [place]) Unspecified essential hypertension documented in this encounter [facility]* Diagnosis Type 2 diabetes mellitus without complication, without long-term current use of insulin ([facility] [place]/[facility])- Primary RLS (restless legs syndrome) Restless legs syndrome (RLS) Hyperlipidemia, unspecified hyperlipidemia type (CMS/HCC) Primary hypertension ([facility] [place]/HCC) Unspecified essential hypertension Moderate persistent asthma without complication ([facility] [place]) Class 3 severe obesity due to excess calories with serious comorbidity and body mass index (BMI) of 40.0 to 44.9 in adult ([facility] [place]) Uncontrolled type 2 diabetes mellitus with hyperglycemia [...] complication, with long-term current use of insulin ([facility] [place]) Chronic neck and back pain Uncontrolled type 2 diabetes mellitus with hyperglycemia (CMS/HCC)- Primary Primary hypertension ([facility] [place]/HCC) Unspecified essential hypertension Chronic neck and back [...] Uncontrolled type 2 diabetes mellitus with hyperglycemia ([facility] [place]/HCC)- Primary Primary hypertension ([facility] [place]/HCC) Unspecified essential hypertension Moderate persistent asthma without complication ([facility] [place]) Class 3 severe obesity due to excess calories with serious comorbidity and body mass index (BMI) of 40.0 to 44.9 in adult ([facility] [place] Mixed hyperlipidemia ([facility] [place]) Mixed hyperlipidemia Encounter for monitoring opioid maintenance therapy Chronic neck and back pain Chronic pain syndrome Type 2 diabetes mellitus without complication, with long-term current use of insulin ([facility] [place]/[facility])- Primary Uncontrolled type 2 diabetes mellitus with hyperglycemia ([facility] [place]) Lumbar radiculopathy Thoracic or lumbosacral neuritis or radiculitis, unspecified Moderate persistent asthma without complication ([facility] [facility])- Primary Chronic neck and back pain Primary hypertension ([facility]) Unspecified essential hypertension Type 2 diabetes mellitus without complication, with long-term current use of insulin ([facility]) Uncontrolled type 2 diabetes mellitus with hyperglycemia ([facility]) Mixed hyperlipidemia ([facility]) Mixed hyperlipidemia Class 3 severe obesity due to excess calories with serious comorbidity and body mass index (BMI) of 40.0 to 44.9 in adult ([facility]) Type 2 diabetes mellitus without complication, without long-term current use of insulin ([facility])- Primary Iron deficiency anemia secondary to inadequate dietary iron intake Primary hypertension ([facility]) Unspecified essential hypertension Moderate persistent asthma without complication ([facility]) documented in this encounter [facility]* Diagnosis Type 2 diabetes mellitus without complication, without long-term current use of insulin ([facility])- Primary RLS (restless legs syndrome) Restless legs syndrome (RLS) Hyperlipidemia, unspecified hyperlipidemia type ([facility]) Primary hypertension ([facility]/HCC) Unspecified essential hypertension Moderate persistent asthma without complication ([facility]) Class 3 severe obesity due to excess calories with serious comorbidity and body mass index (BMI) of 40.0 to 44.9 in adult ([facility]) Uncontrolled type 2 diabetes mellitus with hyperglycemia ([facility]/HCC)- Primary Chronic neck and back pain Primary hypertension ([facility]/HCC) Unspecified essential hypertension Low back pain of thoracolumbar region with sciatica Moderate persistent asthma without complication ([facility])- Primary Primary hypertension ([facility]/HCC) Unspecified essential hypertension Uncontrolled type 2 diabetes mellitus with hyperglycemia ([facility]/HCC) Low back pain of thoracolumbar region with [...] of 40.0 to 44.9 in adult (CMS/HCC) Type 2 diabetes mellitus without complication, without long-term current use of insulin (CMS/HCC)- Primary Iron deficiency anemia secondary to inadequate dietary iron intake Primary hypertension (CMS/HCC) Unspecified essential hypertension Moderate persistent asthma without complication (CMS/HCC) documented in this encounter [facility]Evaluation note* Diagnosis Type 2 diabetes mellitus without complication, without long-term current use of insulin (CMS/HCC) documented in this encounter [facility]* [...] (BMI) of 40.0 to 44.9 in adult (CMS/[facility]) Uncontrolled type 2 diabetes mellitus with hyperglycemia [...] complication, with long-term current use of insulin (CMS/[facility]) Chronic neck and back pain Uncontrolled type [...] (BMI) of 40.0 to 44.9 in adult (CMS/[facility]) Mixed hyperlipidemia (CMS/HCC) Mixed hyperlipidemia Encounter for monitoring opioid maintenance therapy Chronic neck and back pain Chronic pain syndrome Type 2 diabetes mellitus without complication, with long-term current use of insulin (CMS/[facility])- Primary Uncontrolled type 2 diabetes mellitus with hyperglycemia (CMS/HCC) Lumbar radiculopathy Thoracic or lumbosacral neuritis or radiculitis, unspecified Moderate persistent asthma without complication (CMS/HCC)- Primary Chronic neck and back pain Primary hypertension ([facility]/HCC) Unspecified essential hypertension Type 2 diabetes mellitus without complication, with long-term current use of insulin ([facility]) Uncontrolled type 2 diabetes mellitus with hyperglycemia (CMS/HCC) Mixed hyperlipidemia (CMS/HCC) Mixed hyperlipidemia Class 3 severe obesity due to excess calories with serious comorbidity and body mass index (BMI) of 40.0 to 44.9 in adult ([facility]) Type 2 diabetes mellitus without complication, without long-term current use of insulin (CMS/HCC)- Primary Iron deficiency anemia secondary to inadequate dietary iron intake Primary hypertension ([facility]) Unspecified essential hypertension Chronic pain syndrome documented in this encounter [facility]* Diagnosis Type 2 diabetes mellitus without complication, without long-term current use of insulin ([facility])- Primary RLS (restless legs syndrome) Restless legs syndrome (RLS) Hyperlipidemia, unspecified hyperlipidemia type ([facility]/HCC) Primary hypertension ([facility]/HCC) Unspecified essential hypertension Moderate persistent asthma without complication ([facility]/HCC) Class 3 severe obesity due to excess calories with serious comorbidity and body mass index (BMI) of 40.0 to 44.9 in adult ([facility]) Uncontrolled type 2 diabetes mellitus with hyperglycemia (CMS/HCC)- Primary Chronic neck and back pain Primary hypertension (CMS/HCC) Unspecified essential hypertension Low back pain of thoracolumbar region with sciatica Moderate persistent asthma without complication (CMS/HCC)- Primary Primary hypertension ([facility]/HCC) Unspecified essential hypertension Uncontrolled type 2 diabetes mellitus with hyperglycemia (CMS/HCC) Low back pain of thoracolumbar region with sciatica Type 2 diabetes mellitus without complication, with long-term current use of insulin (CMS/[facility]) Chronic neck and back pain Uncontrolled type 2 diabetes mellitus with hyperglycemia (CMS/HCC)- Primary Primary hypertension ([facility]/HCC) Unspecified essential hypertension Chronic neck and back [...] Uncontrolled type 2 diabetes mellitus with hyperglycemia ([facility])- Primary Primary hypertension ([facility]) Unspecified essential hypertension Moderate persistent asthma without complication ([facility]) Class 3 severe obesity due to excess calories with serious comorbidity and body mass index (BMI) of 40.0 to 44.9 in adult ([facility]) Mixed hyperlipidemia ([facility]) Mixed hyperlipidemia Encounter for monitoring opioid maintenance therapy Chronic neck and back pain Chronic pain syndrome Type 2 diabetes mellitus without complication, with long-term current use of insulin ([facility])- Primary Uncontrolled type 2 diabetes mellitus with hyperglycemia ([facility]) Lumbar radiculopathy Thoracic or lumbosacral neuritis or radiculitis, unspecified Moderate persistent asthma without complication ([facility])- Primary Chronic neck and back pain Primary hypertension ([facility]) Unspecified essential hypertension Type 2 diabetes mellitus without complication, with long-term current use of insulin ([facility]) Uncontrolled type 2 diabetes mellitus with hyperglycemia ([facility] Mixed hyperlipidemia ([facility]) Mixed hyperlipidemia Class 3 severe obesity due to excess calories with serious comorbidity and body mass index (BMI) of 40.0 to 44.9 in adult ([facility]) Type 2 diabetes mellitus without complication, without long-term current use of insulin ([facility])- Primary Iron deficiency anemia secondary to inadequate dietary iron intake Primary hypertension ([facility]) Unspecified essential hypertension Type 2 diabetes mellitus without complication, without long-term current use of insulin ([facility]) documented in this encounter [facility] HealthcareEvaluation note* Diagnosis Type 2 diabetes mellitus without complication, without long-term current use of insulin ([facility])- Primary RLS (restless legs syndrome) Restless legs syndrome (RLS) Hyperlipidemia, unspecified hyperlipidemia type ([facility]) Primary hypertension ([facility]) Unspecified essential hypertension Moderate persistent asthma without complication ([facility]) Class 3 severe obesity due to excess calories with serious comorbidity and body mass index (BMI) of 40.0 to 44.9 in adult ([facility]) Uncontrolled type 2 diabetes mellitus with hyperglycemia ([facility])- Primary Chronic neck and back pain Primary hypertension ([facility]) Unspecified essential hypertension Low back pain of thoracolumbar region with sciatica Moderate persistent asthma without complication ([facility])- Primary Primary hypertension (CMS/HCC) Unspecified essential hypertension [...] (BMI) of 40.0 to 44.9 in adult (CMS/[facility]) Mixed hyperlipidemia (CMS/HCC) Mixed hyperlipidemia Encounter for [...] (BMI) of 40.0 to 44.9 in adult (CMS/[facility]) Type 2 diabetes mellitus without complication, without long-term current use of insulin (CMS/HCC)- Primary Iron deficiency anemia secondary to inadequate dietary iron intake Primary hypertension (CMS/HCC) Unspecified essential hypertension Type 2 diabetes mellitus without complication, without long-term current use of insulin (CMS/HCC) documented in this encounter [facility]* Diagnosis Uncontrolled type 2 diabetes mellitus with hyperglycemia ([facility]) documented in this encounter [facility]* Diagnosis Uncontrolled type 2 diabetes mellitus with hyperglycemia ([facility])- Primary Primary hypertension ([facility]) Unspecified essential hypertension Moderate persistent asthma without complication ([facility]) Class 3 severe obesity due to excess calories with serious comorbidity and body mass index (BMI) of 40.0 to 44.9 in adult ([facility] Mixed hyperlipidemia ([facility]) Mixed hyperlipidemia Encounter for monitoring opioid maintenance therapy Chronic neck and back pain Chronic pain syndrome documented in this encounter [facility]* Diagnosis Other osteoarthritis of spine, lumbar region- Primary Lumbar radiculopathy Thoracic or lumbosacral neuritis or radiculitis, unspecified Paresthesia Disturbance of skin sensation Weakness Other malaise and fatigue Muscle spasm Spasm of muscle documented in this encounter [facility]* Diagnosis Type 2 diabetes mellitus without complication, with long-term current use of insulin ([facility])- Primary Uncontrolled type 2 diabetes mellitus with hyperglycemia ([facility]) Lumbar radiculopathy Thoracic or lumbosacral neuritis or radiculitis, unspecified documented in this encounter [facility]* Diagnosis Type 2 diabetes mellitus without complication, without long-term current use of insulin ([facility])- Primary RLS (restless legs syndrome) Restless legs syndrome (RLS) Hyperlipidemia, unspecified hyperlipidemia type ([facility]) Primary hypertension ([facility]) Unspecified essential hypertension Moderate persistent asthma without complication ([facility]) Class 3 severe obesity due to excess calories with serious comorbidity and body mass index (BMI) of 40.0 to 44.9 in adult ([facility]) Uncontrolled type 2 diabetes mellitus with hyperglycemia ([facility])- Primary Chronic neck and back pain Primary hypertension ([facility]) Unspecified essential hypertension Low back pain of thoracolumbar region with sciatica Moderate persistent asthma without complication ([facility])- Primary Primary hypertension ([facility]) Unspecified essential hypertension Uncontrolled type 2 diabetes mellitus with hyperglycemia ([facility]) Low back pain of thoracolumbar region with sciatica Type 2 diabetes mellitus without complication, with long-term current use of insulin ([facility]) Chronic neck and back pain Uncontrolled type 2 diabetes mellitus with hyperglycemia ([facility])- Primary Primary hypertension ([facility]/HCC) Unspecified essential hypertension Chronic neck and back pain Low back pain of thoracolumbar region with sciatica Encounter for monitoring opioid maintenance therapy Uncontrolled type 2 diabetes mellitus with hyperglycemia ([facility]/HCC)- Primary Periodic limb movement Periodic limb movement disorder Restless legs syndrome Restless legs syndrome (RLS) Uncontrolled type 2 diabetes mellitus with hyperglycemia ([facility]/HCC)- Primary Hyperlipidemia, unspecified hyperlipidemia type ([facility]) Low back pain of thoracolumbar region with sciatica Primary hypertension ([facility]/HCC) Unspecified essential hypertension Chronic neck and back pain Uncontrolled type 2 diabetes mellitus with hyperglycemia (CMS/HCC)- Primary Primary hypertension ([facility]) Unspecified essential hypertension Moderate persistent asthma without complication ([facility]) Class 3 severe obesity due to excess calories with serious comorbidity and body mass index (BMI) of 40.0 to 44.9 in adult ([facility] Mixed hyperlipidemia ([facility]) Mixed hyperlipidemia Encounter for monitoring opioid maintenance therapy Chronic neck and back pain Chronic pain syndrome Type 2 diabetes mellitus without complication, with long-term current use of insulin ([facility])- Primary Uncontrolled type 2 diabetes mellitus with hyperglycemia ([facility]) Lumbar radiculopathy Thoracic or lumbosacral neuritis or radiculitis, unspecified Moderate persistent asthma without complication ([facility])- Primary Chronic neck and back pain Primary hypertension ([facility]) Unspecified essential hypertension Type 2 diabetes mellitus without complication, with long-term current use of insulin ([facility]) Uncontrolled type 2 diabetes mellitus with hyperglycemia ([facility] Mixed hyperlipidemia ([facility]) Mixed hyperlipidemia Class 3 severe obesity due to excess calories with serious comorbidity and body mass index (BMI) of 40.0 to 44.9 in adult ([facility]) Type 2 diabetes mellitus without complication, without long-term current use of insulin ([facility])- Primary Iron deficiency anemia secondary to inadequate dietary iron intake Primary hypertension ([facility]) Unspecified essential hypertension documented in this encounter [facility]* Diagnosis Type 2 diabetes mellitus without complication, without long-term current use of insulin ([facility])- Primary RLS (restless legs syndrome) Restless legs syndrome (RLS) Hyperlipidemia, unspecified hyperlipidemia type ([facility]/HCC) Primary hypertension ([facility]/HCC) Unspecified essential hypertension Moderate persistent asthma without complication ([facility]) Class 3 severe obesity due to excess calories with serious comorbidity and body mass index (BMI) of 40.0 to 44.9 in adult ([facility]) Uncontrolled type 2 diabetes mellitus with hyperglycemia [...] (BMI) of 40.0 to 44.9 in adult ([facility]) Mixed hyperlipidemia ([facility]) Mixed hyperlipidemia Encounter for monitoring opioid maintenance therapy Chronic neck and back pain Chronic pain syndrome Type 2 diabetes mellitus without complication, with long-term current use of insulin (CMS/[facility])- Primary Uncontrolled type 2 diabetes mellitus with hyperglycemia (CMS/HCC) Lumbar radiculopathy Thoracic or lumbosacral neuritis or radiculitis, unspecified Moderate persistent asthma without complication (CMS/HCC)- Primary Chronic neck and back pain Primary hypertension (CMS/HCC) Unspecified essential hypertension Type 2 diabetes mellitus without complication, with long-term current use of insulin (CMS/[facility]) Uncontrolled type 2 diabetes mellitus with hyperglycemia (CMS/HCC) Mixed hyperlipidemia ([facility]) Mixed hyperlipidemia Class 3 severe obesity due to excess calories with serious comorbidity and body mass index (BMI) of 40.0 to 44.9 in adult ([facility]) Type 2 diabetes mellitus without complication, without long-term current use of insulin ([facility])- Primary Iron deficiency anemia secondary to inadequate dietary iron intake Primary hypertension ([facility]/HCC) Unspecified essential hypertension Moderate persistent asthma without complication (CMS/HCC) documented in this encounter [facility]* Diagnosis Type 2 diabetes mellitus without complication, without long-term current use of insulin ([facility])- Primary RLS (restless legs syndrome) Restless legs syndrome (RLS) Hyperlipidemia, unspecified hyperlipidemia type (CMS/HCC) Primary hypertension ([facility]/HCC) Unspecified essential hypertension Moderate persistent asthma without complication ([facility]) Class 3 severe obesity due to excess calories with serious comorbidity and body mass index (BMI) of 40.0 to 44.9 in adult ([facility]) Uncontrolled type 2 diabetes mellitus with hyperglycemia ([facility])- Primary Chronic neck and back pain Primary hypertension ([facility]) Unspecified essential hypertension Low back pain of thoracolumbar region with sciatica Moderate persistent asthma without complication ([facility]/HCC)- Primary Primary hypertension ([facility]/HCC) Unspecified essential hypertension Uncontrolled type 2 diabetes mellitus with hyperglycemia (CMS/[facility]) Low back pain of thoracolumbar region with sciatica Type 2 diabetes mellitus without complication, with long-term current use of insulin ([facility]) Chronic neck and back pain Uncontrolled type 2 diabetes mellitus with hyperglycemia ([facility]/HCC)- Primary Primary hypertension ([facility]) Unspecified essential hypertension Chronic neck and back pain Low back pain of thoracolumbar region with sciatica Encounter for monitoring opioid maintenance therapy Uncontrolled type 2 diabetes mellitus with hyperglycemia (CMS/HCC)- Primary Periodic limb movement Periodic limb movement disorder Restless legs syndrome Restless legs syndrome (RLS) Uncontrolled type 2 diabetes mellitus with hyperglycemia ([facility]/HCC)- Primary Hyperlipidemia, unspecified hyperlipidemia type ([facility]/HCC) Low back pain of thoracolumbar region with sciatica Primary hypertension ([facility]/HCC) Unspecified essential hypertension Chronic neck and back pain Uncontrolled type 2 diabetes mellitus with hyperglycemia ([facility]/HCC)- Primary Primary hypertension ([facility]/HCC) Unspecified essential hypertension Moderate persistent asthma without complication ([facility]) Class 3 severe obesity due to excess [...] (BMI) of 40.0 to 44.9 in adult ([facility]) Type 2 diabetes mellitus without complication, without long-term current use of insulin (CMS/HCC)- Primary Iron deficiency anemia secondary to inadequate dietary iron intake Primary hypertension ([facility]) Unspecified essential hypertension Chronic pain syndrome documented in this encounter [facility] HealthcareEvaluation note* Diagnosis Type 2 diabetes mellitus without complication, without long-term current use of insulin ([facility])- Primary RLS (restless legs syndrome) Restless legs syndrome (RLS) Hyperlipidemia, unspecified hyperlipidemia type ([facility]/HCC) Primary hypertension (CMS/HCC) Unspecified essential hypertension Moderate persistent asthma without complication (CMS/HCC) Class 3 severe obesity due to excess calories with serious comorbidity and body mass index (BMI) of 40.0 to 44.9 in adult ([facility]) Uncontrolled type 2 diabetes mellitus with hyperglycemia [...] Uncontrolled type 2 diabetes mellitus with hyperglycemia ([facility]/HCC)- Primary Periodic limb movement Periodic limb movement disorder Restless legs syndrome Restless legs syndrome (RLS) Uncontrolled type 2 diabetes mellitus with hyperglycemia ([facility]/HCC)- Primary Hyperlipidemia, unspecified hyperlipidemia type ([facility]/HCC) Low back pain of thoracolumbar region with sciatica Primary hypertension ([facility]/HCC) Unspecified essential hypertension Chronic neck and back pain Uncontrolled type 2 diabetes mellitus with hyperglycemia ([facility]/HCC)- Primary Primary hypertension ([facility]) Unspecified essential hypertension Moderate persistent asthma without complication ([facility]) Class 3 severe obesity due to excess calories with serious comorbidity and body mass index (BMI) of 40.0 to 44.9 in adult ([facility]) Mixed hyperlipidemia ([facility]) Mixed hyperlipidemia Encounter for monitoring opioid maintenance therapy Chronic neck and back pain Chronic pain syndrome Type 2 diabetes mellitus without complication, with long-term current use of insulin ([facility])- Primary Uncontrolled type 2 diabetes mellitus with hyperglycemia ([facility]) Lumbar radiculopathy Thoracic or lumbosacral neuritis or radiculitis, unspecified Moderate persistent asthma without complication ([facility])- Primary Chronic neck and back pain Primary hypertension ([facility]) Unspecified essential hypertension Type 2 diabetes mellitus without complication, with long-term current use of insulin ([facility]) Uncontrolled type 2 diabetes mellitus with hyperglycemia ([facility] Mixed hyperlipidemia ([facility]) Mixed hyperlipidemia Class 3 severe obesity due to excess calories with serious comorbidity and body mass index (BMI) of 40.0 to 44.9 in adult ([facility]) Type 2 diabetes mellitus without complication, without long-term current use of insulin ([facility])- Primary Iron deficiency anemia secondary to inadequate dietary iron intake Primary hypertension ([facility]) Unspecified essential hypertension Chronic neck and back pain documented in this encounter [facility] HealthcareEvaluation note* Diagnosis Type 2 diabetes mellitus without complication, without long-term current use of insulin ([facility])- Primary RLS (restless legs syndrome) Restless legs syndrome (RLS) Hyperlipidemia, unspecified hyperlipidemia type ([facility]/HCC) Primary hypertension ([facility]) Unspecified essential hypertension Moderate persistent asthma without complication ([facility]) Class 3 severe obesity due to excess calories with serious comorbidity and body mass index (BMI) of 40.0 to 44.9 in adult ([facility]) Uncontrolled type 2 diabetes mellitus with hyperglycemia [...] complication, with long-term current use of insulin ([facility]) Chronic neck and back pain Uncontrolled type [...] hyperglycemia (CMS/HCC)- Primary Hyperlipidemia, unspecified hyperlipidemia type ([facility]) Low back pain of thoracolumbar region with sciatica Primary hypertension (CMS/HCC) Unspecified essential hypertension Chronic neck and back pain Uncontrolled type 2 diabetes mellitus with hyperglycemia (CMS/HCC)- Primary Primary hypertension ([facility]) Unspecified essential hypertension Moderate persistent asthma without complication ([facility]) Class 3 severe obesity due to excess calories with serious comorbidity and body mass index (BMI) of 40.0 to 44.9 in adult ([facility]) Mixed hyperlipidemia ([facility]) Mixed hyperlipidemia Encounter for monitoring opioid maintenance therapy Chronic neck and back pain Chronic pain syndrome Type 2 diabetes mellitus without complication, with long-term current use of insulin ([facility])- Primary Uncontrolled type 2 diabetes mellitus with hyperglycemia (CMS/HCC) Lumbar radiculopathy Thoracic or lumbosacral neuritis or radiculitis, unspecified Moderate persistent asthma without complication ([facility])- Primary Chronic neck and back pain Primary hypertension ([facility]) Unspecified essential hypertension Type 2 diabetes mellitus without complication, with long-term current use of insulin ([facility]) Uncontrolled type 2 diabetes mellitus with hyperglycemia (CMS/HCC) Mixed hyperlipidemia ([facility]) Mixed hyperlipidemia Class 3 severe obesity due to excess calories with serious comorbidity and body mass index (BMI) of 40.0 to 44.9 in adult ([facility]) Type 2 diabetes mellitus without complication, without long-term current use of insulin (CMS/HCC)- Primary Iron deficiency anemia secondary to inadequate dietary iron intake Primary hypertension (CMS/HCC) Unspecified essential hypertension Chronic pain syndrome documented in this encounter [facility] HealthcareEvaluation note* Diagnosis Type 2 diabetes mellitus without complication, without long-term current use of insulin ([facility]/HCC)- Primary RLS (restless legs syndrome) Restless legs syndrome (RLS) Hyperlipidemia, unspecified hyperlipidemia type (CMS/HCC) Primary hypertension (CMS/HCC) Unspecified essential hypertension Moderate persistent asthma without complication (CMS/[facility]) Class 3 severe obesity due to excess calories with serious comorbidity and body mass index (BMI) of 40.0 to 44.9 in adult ([facility]) Uncontrolled type 2 diabetes mellitus with hyperglycemia [...] complication, with long-term current use of insulin ([facility]) Chronic neck and back pain Uncontrolled type 2 diabetes mellitus with hyperglycemia (CMS/HCC)- Primary Primary hypertension ([facility]/HCC) Unspecified essential hypertension Chronic neck and back [...] mellitus with hyperglycemia (CMS/HCC)- Primary Primary hypertension ([facility]/HCC) Unspecified essential hypertension Moderate persistent asthma without complication ([facility]) Class 3 severe obesity due to excess calories with serious comorbidity and body mass index (BMI) of 40.0 to 44.9 in adult ([facility]) Mixed hyperlipidemia ([facility]) Mixed hyperlipidemia Encounter for monitoring opioid maintenance therapy Chronic neck and back pain Chronic pain syndrome Type 2 diabetes mellitus without complication, with long-term current use of insulin ([facility])- Primary Uncontrolled type 2 diabetes mellitus with hyperglycemia ([facility]) Lumbar radiculopathy Thoracic or lumbosacral neuritis or radiculitis, unspecified Moderate persistent asthma without complication ([facility])- Primary Chronic neck and back pain Primary hypertension ([facility]) Unspecified essential hypertension Type 2 diabetes mellitus without complication, with long-term current use of insulin ([facility]) Uncontrolled type 2 diabetes mellitus with hyperglycemia ([facility] Mixed hyperlipidemia ([facility]) Mixed hyperlipidemia Class 3 severe obesity due to excess calories with serious comorbidity and body mass index (BMI) of 40.0 to 44.9 in adult ([facility]) Type 2 diabetes mellitus without complication, without long-term current use of insulin ([facility])- Primary Iron deficiency anemia secondary to inadequate dietary iron intake Primary hypertension ([facility]) Unspecified essential hypertension Chronic pain syndrome documented in this encounter [facility] HealthcareEvaluation note* Diagnosis Type 2 diabetes mellitus without complication, without long-term current use of insulin ([facility])- Primary RLS (restless legs syndrome) Restless legs syndrome (RLS) Hyperlipidemia, unspecified hyperlipidemia type ([facility]) Primary hypertension ([facility]) Unspecified essential hypertension Moderate persistent asthma without complication ([facility]) Class 3 severe obesity due to excess calories with serious comorbidity and body mass index (BMI) of 40.0 to 44.9 in adult ([facility] Uncontrolled type 2 diabetes mellitus with hyperglycemia ([facility]/HCC)- Primary Chronic neck and back pain Primary hypertension ([facility]) [facility]specified essential hypertension Low back pain of thoracolumbar region with sciatica Moderate persistent asthma without complication ([facility])- Primary Primary hypertension ([facility]) Unspecified essential hypertension Uncontrolled type 2 diabetes mellitus with hyperglycemia ([facility]/HCC) Low back pain of thoracolumbar region with sciatica Type 2 diabetes mellitus without complication, with long-term current use of insulin ([facility]) Chronic neck and back pain Uncontrolled type 2 diabetes mellitus with hyperglycemia ([facility]/HCC)- Primary Primary hypertension ([facility]) Unspecified essential hypertension Chronic neck and back pain Low back pain of thoracolumbar region with sciatica Encounter for monitoring opioid maintenance therapy Uncontrolled type 2 diabetes mellitus with hyperglycemia ([facility])- Primary Periodic limb movement Periodic limb movement disorder Restless legs syndrome Restless legs syndrome (RLS) Uncontrolled type 2 diabetes mellitus with hyperglycemia ([facility]/HCC)- Primary Hyperlipidemia, unspecified hyperlipidemia type ([facility]/HCC) Low back pain of thoracolumbar region with sciatica Primary hypertension ([facility]/HCC) Unspecified essential hypertension Chronic neck and back pain Uncontrolled type 2 diabetes mellitus with hyperglycemia ([facility]/HCC)- Primary Primary hypertension ([facility]) Unspecified essential hypertension Moderate persistent asthma without complication ([facility]) Class 3 severe obesity due to excess calories with serious comorbidity and body mass index (BMI) of 40.0 to 44.9 in adult ([facility] Mixed hyperlipidemia ([facility]) Mixed hyperlipidemia Encounter for monitoring opioid maintenance therapy Chronic neck and back pain Chronic pain syndrome Type 2 diabetes mellitus without complication, with long-term current use of insulin ([facility])- Primary Uncontrolled type 2 diabetes mellitus with hyperglycemia ([facility]) Lumbar radiculopathy Thoracic or lumbosacral neuritis or radiculitis, unspecified Moderate persistent asthma without complication ([facility])- Primary Chronic neck and back pain Primary hypertension ([facility]) Unspecified essential hypertension Type 2 diabetes mellitus without complication, with long-term current use of insulin ([facility]) Uncontrolled type 2 diabetes mellitus with hyperglycemia ([facility]) Mixed hyperlipidemia ([facility]) Mixed hyperlipidemia Class 3 severe obesity due to excess calories with serious comorbidity and body mass index (BMI) of 40.0 to 44.9 in adult ([facility]) Type 2 diabetes mellitus without complication, without long-term current use of insulin ([facility])- Primary Iron deficiency anemia secondary to inadequate dietary iron intake Primary hypertension ([facility]) Unspecified essential hypertension Chronic pain syndrome documented in this encounter [facility] HealthcareEvaluation note* Diagnosis Type 2 diabetes mellitus without complication, without long-term current use of insulin ([facility])- Primary RLS (restless legs syndrome) Restless legs syndrome (RLS) Hyperlipidemia, unspecified hyperlipidemia type ([facility]) Primary hypertension ([facility]) Unspecified essential hypertension Moderate persistent asthma without complication ([facility]) Class 3 severe obesity due to excess calories with serious comorbidity and body mass index (BMI) of 40.0 to 44.9 in adult ([facility]) Uncontrolled type 2 diabetes mellitus with hyperglycemia ([facility])- Primary Chronic neck and back pain Primary hypertension ([facility]) Unspecified essential hypertension Low back pain of [...] Uncontrolled type 2 diabetes mellitus with hyperglycemia ([facility]/HCC)- Primary Hyperlipidemia, unspecified hyperlipidemia type (CMS/[facility]) Low back pain of thoracolumbar region with sciatica Primary hypertension ([facility]) Unspecified essential hypertension Chronic neck and back pain Uncontrolled type 2 diabetes mellitus with hyperglycemia ([facility]/HCC)- Primary Primary hypertension ([facility]) [facility]specified essential hypertension Moderate persistent asthma without complication ([facility]) Class 3 severe obesity due to excess calories with serious comorbidity and body mass index (BMI) of 40.0 to 44.9 in adult ([facility] Mixed hyperlipidemia ([facility]) Mixed hyperlipidemia Encounter for monitoring opioid maintenance therapy Chronic neck and back pain Chronic pain syndrome Type 2 diabetes mellitus without complication, with long-term current use of insulin ([facility] [place]/[facility])- Primary Uncontrolled type 2 diabetes mellitus with hyperglycemia (CMS/[facility]) Lumbar radiculopathy Thoracic or lumbosacral neuritis or radiculitis, unspecified Moderate persistent asthma without complication ([facility])- Primary Chronic neck and back pain Primary hypertension ([facility]) Unspecified essential hypertension Type 2 diabetes mellitus without complication, with long-term current use of insulin ([facility]) Uncontrolled type 2 diabetes mellitus with hyperglycemia ([facility]/HCC) Mixed hyperlipidemia ([facility] [place]) Mixed hyperlipidemia Class 3 severe obesity due to excess calories with serious comorbidity and body mass index (BMI) of 40.0 to 44.9 in adult ([facility]) Type 2 diabetes mellitus without complication, without long-term current use of insulin ([facility])- Primary Iron deficiency anemia secondary to inadequate dietary iron intake Primary hypertension (CMS/HCC) Unspecified essential hypertension Primary hypertension (CMS/HCC)- Primary Unspecified essential hypertension Moderate persistent asthma without complication (CMS/HCC) Type 2 diabetes mellitus without complication, with long-term current use of insulin (CMS/HCC) Uncontrolled type 2 diabetes mellitus with hyperglycemia (CMS/HCC) documented in this encounter [facility] HealthcareEvaluation note* Diagnosis Type 2 diabetes mellitus without complication, without long-term current use of insulin- Primary RLS (restless legs syndrome) Restless legs syndrome (RLS) Hyperlipidemia, unspecified hyperlipidemia type (CMS/HCC) Primary hypertension (CMS/HCC) Unspecified essential hypertension Moderate persistent asthma without complication (CMS/HCC) Class 3 severe obesity due to excess calories with serious comorbidity and body mass index (BMI) of 40.0 to 44.9 in adult Uncontrolled type 2 diabetes mellitus with hyperglycemia [...] complication, with long-term current use of insulin Chronic neck and back pain Uncontrolled type [...] (BMI) of 40.0 to 44.9 in adult Mixed hyperlipidemia (CMS/HCC) Mixed hyperlipidemia Encounter for monitoring opioid maintenance therapy Chronic neck and back pain Chronic pain syndrome Type 2 diabetes mellitus without complication, with long-term current use of insulin- Primary Uncontrolled type 2 diabetes mellitus with hyperglycemia (CMS/HCC) Lumbar radiculopathy Thoracic or lumbosacral neuritis or radiculitis, unspecified Moderate persistent asthma without complication (CMS/HCC)- Primary Chronic neck and back pain Primary hypertension (CMS/HCC) Unspecified essential hypertension Type 2 diabetes mellitus without complication, with long-term current use of insulin Uncontrolled type 2 diabetes mellitus with hyperglycemia (CMS/HCC) Mixed hyperlipidemia (CMS/HCC) Mixed hyperlipidemia Class 3 severe obesity due to excess calories with serious comorbidity and body mass index (BMI) of 40.0 to 44.9 in adult Type 2 diabetes mellitus without complication, without long-term current use of insulin- Primary Iron deficiency anemia secondary to inadequate dietary iron intake Primary hypertension (CMS/HCC) Unspecified essential hypertension Primary hypertension (CMS/HCC)- Primary Unspecified essential hypertension Moderate persistent asthma without complication (CMS/HCC) Type 2 diabetes mellitus without complication, with long-term current use of insulin Uncontrolled type 2 diabetes mellitus with hyperglycemia (CMS/HCC) RLS (restless legs syndrome) Restless legs syndrome (RLS) documented in this encounter [facility] HealthcareEvaluation note* Diagnosis Type 2 diabetes mellitus without complication, without long-term current use of insulin- Primary RLS (restless legs syndrome) Restless legs syndrome (RLS) Hyperlipidemia, unspecified hyperlipidemia type (CMS/HCC) Primary hypertension (CMS/HCC) Unspecified essential hypertension Moderate persistent asthma without complication (CMS/HCC) Class 3 severe obesity due to excess calories with serious comorbidity and body mass index (BMI) of 40.0 to 44.9 in adult Uncontrolled type 2 diabetes mellitus with hyperglycemia [...] complication, with long-term current use of insulin Chronic neck and back pain Uncontrolled type [...] (BMI) of 40.0 to 44.9 in adult Mixed hyperlipidemia (CMS/HCC) Mixed hyperlipidemia Encounter for monitoring opioid maintenance therapy Chronic neck and back pain Chronic pain syndrome Type 2 diabetes mellitus without complication, with long-term current use of insulin- Primary Uncontrolled type 2 diabetes mellitus with hyperglycemia (CMS/HCC) Lumbar radiculopathy Thoracic or lumbosacral neuritis or radiculitis, unspecified Moderate persistent asthma without complication (CMS/HCC)- Primary Chronic neck and back pain Primary hypertension (CMS/HCC) Unspecified essential hypertension Type 2 diabetes mellitus without complication, with long-term current use of insulin Uncontrolled type 2 diabetes mellitus with hyperglycemia (CMS/HCC) Mixed hyperlipidemia (CMS/HCC) Mixed hyperlipidemia Class 3 severe obesity due to excess calories with serious comorbidity and body mass index (BMI) of 40.0 to 44.9 in adult Type 2 diabetes mellitus without complication, without long-term current use of insulin- Primary Iron deficiency anemia secondary to inadequate dietary iron intake Primary hypertension (CMS/HCC) Unspecified essential hypertension Primary hypertension (CMS/HCC)- Primary Unspecified essential hypertension Moderate persistent asthma without complication (CMS/HCC) Type 2 diabetes mellitus without complication, with long-term current use of insulin Uncontrolled type 2 diabetes mellitus with hyperglycemia (CMS/HCC) Chronic neck and back pain documented in this encounter [facility] HealthcareEvaluation note* Diagnosis Type 2 diabetes mellitus without complication, without long-term current use of insulin- Primary RLS (restless legs syndrome) Restless legs syndrome (RLS) Hyperlipidemia, unspecified hyperlipidemia type (CMS/HCC) Primary hypertension (CMS/HCC) Unspecified essential hypertension Moderate persistent asthma without complication (CMS/HCC) Class 3 severe obesity due to excess calories with serious comorbidity and body mass index (BMI) of 40.0 to 44.9 in adult Uncontrolled type 2 diabetes mellitus with hyperglycemia [...] complication, with long-term current use of insulin Chronic neck and back pain Uncontrolled type [...] (BMI) of 40.0 to 44.9 in adult Mixed hyperlipidemia (CMS/HCC) Mixed hyperlipidemia Encounter for monitoring opioid maintenance therapy Chronic neck and back pain Chronic pain syndrome Type 2 diabetes mellitus without complication, with long-term current use of insulin- Primary Uncontrolled type 2 diabetes mellitus with hyperglycemia (CMS/HCC) Lumbar radiculopathy Thoracic or lumbosacral neuritis or radiculitis, unspecified Moderate persistent asthma without complication (CMS/HCC)- Primary Chronic neck and back pain Primary hypertension (CMS/HCC) Unspecified essential hypertension Type 2 diabetes mellitus without complication, with long-term current use of insulin Uncontrolled type 2 diabetes mellitus with hyperglycemia (CMS/HCC) Mixed hyperlipidemia (CMS/HCC) Mixed hyperlipidemia Class 3 severe obesity due to excess calories with serious comorbidity and body mass index (BMI) of 40.0 to 44.9 in adult Type 2 diabetes mellitus without complication, without long-term current use of insulin- Primary Iron deficiency anemia secondary to inadequate dietary iron intake Primary hypertension (CMS/HCC) Unspecified essential hypertension Primary hypertension (CMS/HCC)- Primary Unspecified essential hypertension Moderate persistent asthma without complication (CMS/HCC) Type 2 diabetes mellitus without complication, with long-term current use of insulin Uncontrolled type 2 diabetes mellitus with hyperglycemia (CMS/HCC) Chronic pain syndrome documented in this encounter [facility] HealthcareEvaluation note* Diagnosis Type 2 diabetes mellitus without complication, without long-term current use of insulin- Primary RLS (restless legs syndrome) Restless legs syndrome (RLS) Hyperlipidemia, unspecified hyperlipidemia type (CMS/HCC) Primary hypertension (CMS/HCC) Unspecified essential hypertension Moderate persistent asthma without complication (CMS/HCC) Class 3 severe obesity due to excess calories with serious comorbidity and body mass index (BMI) of 40.0 to 44.9 in adult Uncontrolled type 2 diabetes mellitus with hyperglycemia [...] complication, with long-term current use of insulin Chronic neck and back pain Uncontrolled type [...] (BMI) of 40.0 to 44.9 in adult Mixed hyperlipidemia (CMS/HCC) Mixed hyperlipidemia Encounter for monitoring opioid maintenance therapy Chronic neck and back pain Chronic pain syndrome Type 2 diabetes mellitus without complication, with long-term current use of insulin- Primary Uncontrolled type 2 diabetes mellitus with hyperglycemia (CMS/HCC) Lumbar radiculopathy Thoracic or lumbosacral neuritis or radiculitis, unspecified Moderate persistent asthma without complication (CMS/HCC)- Primary Chronic neck and back pain Primary hypertension (CMS/HCC) Unspecified essential hypertension Type 2 diabetes mellitus without complication, with long-term current use of insulin Uncontrolled type 2 diabetes mellitus with hyperglycemia (CMS/HCC) Mixed hyperlipidemia (CMS/HCC) Mixed hyperlipidemia Class 3 severe obesity due to excess calories with serious comorbidity and body mass index (BMI) of 40.0 to 44.9 in adult Type 2 diabetes mellitus without complication, without long-term current use of insulin- Primary Iron deficiency anemia secondary to inadequate dietary iron intake Primary hypertension (CMS/HCC) Unspecified essential hypertension Primary hypertension (CMS/HCC)- Primary Unspecified essential hypertension Moderate persistent asthma without complication (CMS/HCC) Type 2 diabetes mellitus without complication, with long-term current use of insulin Uncontrolled type 2 diabetes mellitus with hyperglycemia (CMS/HCC) Moderate persistent asthma without complication (CMS/HCC) documented in this encounter [facility] HealthcareEvaluation note* Diagnosis Type 2 diabetes mellitus without complication, without long-term current use of insulin- Primary RLS (restless legs syndrome) Restless legs syndrome (RLS) Hyperlipidemia, unspecified hyperlipidemia type (CMS/HCC) Primary hypertension (CMS/HCC) Unspecified essential hypertension Moderate persistent asthma without complication (CMS/HCC) Class 3 severe obesity due to excess calories with serious comorbidity and body mass index (BMI) of 40.0 to 44.9 in adult Uncontrolled type 2 diabetes mellitus with hyperglycemia [...] complication, with long-term current use of insulin Chronic neck and back pain Uncontrolled type [...] (BMI) of 40.0 to 44.9 in adult Mixed hyperlipidemia (CMS/HCC) Mixed hyperlipidemia Encounter for monitoring opioid maintenance therapy Chronic neck and back pain Chronic pain syndrome Type 2 diabetes mellitus without complication, with long-term current use of insulin- Primary Uncontrolled type 2 diabetes mellitus with hyperglycemia (CMS/HCC) Lumbar radiculopathy Thoracic or lumbosacral neuritis or radiculitis, unspecified Moderate persistent asthma without complication (CMS/HCC)- Primary Chronic neck and back pain Primary hypertension (CMS/HCC) Unspecified essential hypertension Type 2 diabetes mellitus without complication, with long-term current use of insulin Uncontrolled type 2 diabetes mellitus with hyperglycemia (CMS/HCC) Mixed hyperlipidemia (CMS/HCC) Mixed hyperlipidemia Class 3 severe obesity due to excess calories with serious comorbidity and body mass index (BMI) of 40.0 to 44.9 in adult Type 2 diabetes mellitus without complication, without long-term current use of insulin- Primary Iron deficiency anemia secondary to inadequate dietary iron intake Primary hypertension (CMS/HCC) Unspecified essential hypertension Primary hypertension (CMS/HCC)- Primary Unspecified essential hypertension Moderate persistent asthma without complication (CMS/HCC) Type 2 diabetes mellitus without complication, with long-term current use of insulin Uncontrolled type 2 diabetes mellitus with hyperglycemia (CMS/HCC) Acute cough- Primary Primary hypertension (CMS/HCC) Unspecified essential hypertension Type 2 diabetes mellitus without complication, with long-term current use of insulin Uncontrolled type 2 diabetes mellitus with hyperglycemia (CMS/HCC) documented in this encounter [facility] HealthcareEvaluation note* Diagnosis Type 2 diabetes mellitus without complication, without long-term current use of insulin- Primary RLS (restless legs syndrome) Restless legs syndrome (RLS) Hyperlipidemia, unspecified hyperlipidemia type (CMS/HCC) Primary hypertension (CMS/HCC) Unspecified essential hypertension Moderate persistent asthma without complication (CMS/HCC) Class 3 severe obesity due to excess calories with serious comorbidity and body mass index (BMI) of 40.0 to 44.9 in adult Uncontrolled type 2 diabetes mellitus with hyperglycemia [...] complication, with long-term current use of insulin Chronic neck and back pain Uncontrolled type [...] (BMI) of 40.0 to 44.9 in adult Mixed hyperlipidemia (CMS/HCC) Mixed hyperlipidemia Encounter for monitoring opioid maintenance therapy Chronic neck and back pain Chronic pain syndrome Type 2 diabetes mellitus without complication, with long-term current use of insulin- Primary Uncontrolled type 2 diabetes mellitus with hyperglycemia (CMS/HCC) Lumbar radiculopathy Thoracic or lumbosacral neuritis or radiculitis, unspecified Moderate persistent asthma without complication (CMS/HCC)- Primary Chronic neck and back pain Primary hypertension (CMS/HCC) Unspecified essential hypertension Type 2 diabetes mellitus without complication, with long-term current use of insulin Uncontrolled type 2 diabetes mellitus with hyperglycemia (CMS/HCC) Mixed hyperlipidemia (CMS/HCC) Mixed hyperlipidemia Class 3 severe obesity due to excess calories with serious comorbidity and body mass index (BMI) of 40.0 to 44.9 in adult Type 2 diabetes mellitus without complication, without long-term current use of insulin- Primary Iron deficiency anemia secondary to inadequate dietary iron intake Primary hypertension (CMS/HCC) Unspecified essential hypertension Primary hypertension (CMS/HCC)- Primary Unspecified essential hypertension Moderate persistent asthma without complication (CMS/HCC) Type 2 diabetes mellitus without complication, with long-term current use of insulin Uncontrolled type 2 diabetes mellitus with hyperglycemia (CMS/HCC) Type 2 diabetes mellitus without complication, without long-term current use of insulin documented in this encounter [facility] HealthcareEvaluation note* Diagnosis Type 2 diabetes mellitus without complication, without long-term current use of insulin- Primary RLS (restless legs syndrome) Restless legs syndrome (RLS) Hyperlipidemia, unspecified hyperlipidemia type (CMS/HCC) Primary hypertension (CMS/HCC) Unspecified essential hypertension Moderate persistent asthma without complication (CMS/HCC) Class 3 severe obesity due to excess calories with serious comorbidity and body mass index (BMI) of 40.0 to 44.9 in adult Uncontrolled type 2 diabetes mellitus with hyperglycemia [...] complication, with long-term current use of insulin Chronic neck and back pain Uncontrolled type [...] (BMI) of 40.0 to 44.9 in adult Mixed hyperlipidemia (CMS/HCC) Mixed hyperlipidemia Encounter for monitoring opioid maintenance therapy Chronic neck and back pain Chronic pain syndrome Type 2 diabetes mellitus without complication, with long-term current use of insulin- Primary Uncontrolled type 2 diabetes mellitus with hyperglycemia (CMS/HCC) Lumbar radiculopathy Thoracic or lumbosacral neuritis or radiculitis, unspecified Moderate persistent asthma without complication (CMS/HCC)- Primary Chronic neck and back pain Primary hypertension (CMS/HCC) Unspecified essential hypertension Type 2 diabetes mellitus without complication, with long-term current use of insulin Uncontrolled type 2 diabetes mellitus with hyperglycemia (CMS/HCC) Mixed hyperlipidemia (CMS/HCC) Mixed hyperlipidemia Class 3 severe obesity due to excess calories with serious comorbidity and body mass index (BMI) of 40.0 to 44.9 in adult Type 2 diabetes mellitus without complication, without long-term current use of insulin- Primary Iron deficiency anemia secondary to inadequate dietary iron intake Primary hypertension (CMS/HCC) Unspecified essential hypertension Primary hypertension (CMS/HCC)- Primary Unspecified essential hypertension Moderate persistent asthma without complication (CMS/HCC) Type 2 diabetes mellitus without complication, with long-term current use of insulin Uncontrolled type 2 diabetes mellitus with hyperglycemia (CMS/HCC) Moderate persistent asthma without complication (CMS/HCC) documented in this encounter [facility] HealthcareEvaluation note* Diagnosis Type 2 diabetes mellitus without complication, without long-term current use of insulin- Primary RLS (restless legs syndrome) Restless legs syndrome (RLS) Hyperlipidemia, unspecified hyperlipidemia type (CMS/HCC) Primary hypertension (CMS/HCC) Unspecified essential hypertension Moderate persistent asthma without complication (CMS/HCC) Class 3 severe obesity due to excess calories with serious comorbidity and body mass index (BMI) of 40.0 to 44.9 in adult Uncontrolled type 2 diabetes mellitus with hyperglycemia [...] complication, with long-term current use of insulin Chronic neck and back pain Uncontrolled type [...] (BMI) of 40.0 to 44.9 in adult Mixed hyperlipidemia (CMS/HCC) Mixed hyperlipidemia Encounter for monitoring opioid maintenance therapy Chronic neck and back pain Chronic pain syndrome Type 2 diabetes mellitus without complication, with long-term current use of insulin- Primary Uncontrolled type 2 diabetes mellitus with hyperglycemia (CMS/HCC) Lumbar radiculopathy Thoracic or lumbosacral neuritis or radiculitis, unspecified Moderate persistent asthma without complication (CMS/HCC)- Primary Chronic neck and back pain Primary hypertension (CMS/HCC) Unspecified essential hypertension Type 2 diabetes mellitus without complication, with long-term current use of insulin Uncontrolled type 2 diabetes mellitus with hyperglycemia (CMS/HCC) Mixed hyperlipidemia (CMS/HCC) Mixed hyperlipidemia Class 3 severe obesity due to excess calories with serious comorbidity and body mass index (BMI) of 40.0 to 44.9 in adult Type 2 diabetes mellitus without complication, without long-term current use of insulin- Primary Iron deficiency anemia secondary to inadequate dietary iron intake Primary hypertension (CMS/HCC) Unspecified essential hypertension Primary hypertension (CMS/HCC)- Primary Unspecified essential hypertension Moderate persistent asthma without complication (CMS/HCC) Type 2 diabetes mellitus without complication, with long-term current use of insulin Uncontrolled type 2 diabetes mellitus with hyperglycemia (CMS/HCC) Chronic pain syndrome documented in this encounter [facility] HealthcareEvaluation note* Diagnosis Type 2 diabetes mellitus without complication, without long-term current use of insulin- Primary RLS (restless legs syndrome) Restless legs syndrome (RLS) Hyperlipidemia, unspecified hyperlipidemia type (CMS/HCC) Primary hypertension (CMS/HCC) Unspecified essential hypertension Moderate persistent asthma without complication (CMS/HCC) Class 3 severe obesity due to excess calories with serious comorbidity and body mass index (BMI) of 40.0 to 44.9 in adult Uncontrolled type 2 diabetes mellitus with hyperglycemia [...] complication, with long-term current use of insulin Chronic neck and back pain Uncontrolled type [...] (BMI) of 40.0 to 44.9 in adult Mixed hyperlipidemia (CMS/HCC) Mixed hyperlipidemia Encounter for monitoring opioid maintenance therapy Chronic neck and back pain Chronic pain syndrome Type 2 diabetes mellitus without complication, with long-term current use of insulin- Primary Uncontrolled type 2 diabetes mellitus with hyperglycemia (CMS/HCC) Lumbar radiculopathy Thoracic or lumbosacral neuritis or radiculitis, unspecified Moderate persistent asthma without complication (CMS/HCC)- Primary Chronic neck and back pain Primary hypertension (CMS/HCC) Unspecified essential hypertension Type 2 diabetes mellitus without complication, with long-term current use of insulin Uncontrolled type 2 diabetes mellitus with hyperglycemia (CMS/HCC) Mixed hyperlipidemia (CMS/HCC) Mixed hyperlipidemia Class 3 severe obesity due to excess calories with serious comorbidity and body mass index (BMI) of 40.0 to 44.9 in adult Type 2 diabetes mellitus without complication, without long-term current use of insulin- Primary Iron deficiency anemia secondary to inadequate dietary iron intake Primary hypertension (CMS/HCC) Unspecified essential hypertension Primary hypertension (CMS/HCC)- Primary Unspecified essential hypertension Moderate persistent asthma without complication (CMS/HCC) Type 2 diabetes mellitus without complication, with long-term current use of insulin Uncontrolled type 2 diabetes mellitus with hyperglycemia (CMS/HCC) Type 2 diabetes mellitus without complication, without long-term current use of insulin- Primary Chronic pain syndrome Primary hypertension (CMS/HCC) Unspecified essential hypertension Class 3 severe obesity due to excess calories with serious comorbidity and body mass index (BMI) of 40.0 to 44.9 in adult Moderate episode of recurrent major depressive disorder (CMS/HCC) Chronic neck and back pain documented in this encounter [facility] HealthcareEvaluation note* Diagnosis Type 2 diabetes mellitus without complication, without long-term current use of insulin (HCC)- Primary RLS (restless legs syndrome) Restless legs syndrome (RLS) Hyperlipidemia, unspecified hyperlipidemia type Primary hypertension Unspecified essential hypertension Moderate persistent asthma without complication (HCC) Class 3 severe obesity due to excess calories with serious comorbidity and body mass index (BMI) of 40.0 to 44.9 in adult ([facility] [place]-HCC) Uncontrolled type 2 diabetes mellitus with hyperglycemia (HCC)- Primary Chronic neck and back pain Primary hypertension Unspecified essential hypertension Low back pain of thoracolumbar region with sciatica Moderate persistent asthma without complication (HCC)- Primary Primary hypertension Unspecified essential hypertension Uncontrolled type 2 diabetes mellitus with hyperglycemia (HCC) Low back pain of thoracolumbar region with sciatica Type 2 diabetes mellitus without complication, with long-term current use of insulin (HCC) Chronic neck and back pain Uncontrolled type 2 diabetes mellitus with hyperglycemia (HCC)- Primary Primary hypertension Unspecified essential hypertension Chronic neck and back pain Low back pain of thoracolumbar region with sciatica Encounter for monitoring opioid maintenance therapy Uncontrolled type 2 diabetes mellitus with hyperglycemia (HCC)- Primary Periodic limb movement Periodic limb movement disorder Restless legs syndrome Restless legs syndrome (RLS) Uncontrolled type 2 diabetes mellitus with hyperglycemia (HCC)- Primary Hyperlipidemia, unspecified hyperlipidemia type Low back pain of thoracolumbar region with sciatica Primary hypertension Unspecified essential hypertension Chronic neck and back pain Uncontrolled type 2 diabetes mellitus with hyperglycemia (HCC)- Primary Primary hypertension Unspecified essential hypertension Moderate persistent asthma without complication (HCC) Class 3 severe obesity due to excess calories with serious comorbidity and body mass index (BMI) of 40.0 to 44.9 in adult ([facility] [place]) Mixed hyperlipidemia Mixed hyperlipidemia Encounter for monitoring opioid maintenance therapy Chronic neck and back pain Chronic pain syndrome Type 2 diabetes mellitus without complication, with long-term current use of insulin (HCC)- Primary Uncontrolled type 2 diabetes mellitus with hyperglycemia (HCC) Lumbar radiculopathy Thoracic or lumbosacral neuritis or radiculitis, unspecified Moderate persistent asthma without complication (HCC)- Primary Chronic neck and back pain Primary hypertension Unspecified essential hypertension Type 2 diabetes mellitus without complication, with long-term current use of insulin (HCC) Uncontrolled type 2 diabetes mellitus with hyperglycemia (HCC) Mixed hyperlipidemia Mixed hyperlipidemia Class 3 severe obesity due to excess calories with serious comorbidity and body mass index (BMI) of 40.0 to 44.9 in adult ([facility] [place]) Type 2 diabetes mellitus without complication, without long-term current use of insulin ([facility])- Primary Iron deficiency anemia secondary to inadequate dietary iron intake Primary hypertension Unspecified essential hypertension Primary hypertension- Primary Unspecified essential hypertension Moderate persistent asthma without complication (HCC) Type 2 diabetes mellitus without complication, with long-term current use of insulin (HCC) Uncontrolled type 2 diabetes mellitus with hyperglycemia (HCC) Type 2 diabetes mellitus without complication, without long-term current use of insulin (HCC)- Primary Chronic pain syndrome Primary hypertension Unspecified essential hypertension Class 3 severe obesity due to excess calories with serious comorbidity and body mass index (BMI) of 40.0 to 44.9 in adult ([facility] [place]) Moderate episode of recurrent major depressive disorder (HCC) Chronic neck and back pain Chronic pain syndrome documented in this encounter [facility] HealthcareEvaluation note* Diagnosis Type 2 diabetes mellitus without complication, without long-term current use of insulin (HCC)- Primary RLS (restless legs syndrome) Restless legs syndrome (RLS) Hyperlipidemia, unspecified hyperlipidemia type Primary hypertension Unspecified essential hypertension Moderate persistent asthma without complication ([facility]) Class 3 severe obesity due to excess calories with serious comorbidity and body mass index (BMI) of 40.0 to 44.9 in adult ([facility] [place]) Uncontrolled type 2 diabetes mellitus with hyperglycemia (HCC)- Primary Chronic neck and back pain Primary hypertension Unspecified essential hypertension Low back pain of thoracolumbar region with sciatica Moderate persistent asthma without complication (HCC)- Primary Primary hypertension Unspecified essential hypertension Uncontrolled type 2 diabetes mellitus with hyperglycemia (HCC) Low back pain of thoracolumbar region with sciatica Type 2 diabetes mellitus without complication, with long-term current use of insulin (HCC) Chronic neck and back pain Uncontrolled type 2 diabetes mellitus with hyperglycemia (HCC)- Primary Primary hypertension Unspecified essential hypertension Chronic neck and back pain Low back pain of thoracolumbar region with sciatica Encounter for monitoring opioid maintenance therapy Uncontrolled type 2 diabetes mellitus with hyperglycemia (HCC)- Primary Periodic limb movement Periodic limb movement disorder Restless legs syndrome Restless legs syndrome (RLS) Uncontrolled type 2 diabetes mellitus with hyperglycemia (HCC)- Primary Hyperlipidemia, unspecified hyperlipidemia type Low back pain of thoracolumbar region with sciatica Primary hypertension Unspecified essential hypertension Chronic neck and back pain Uncontrolled type 2 diabetes mellitus with hyperglycemia (HCC)- Primary Primary hypertension Unspecified essential hypertension Moderate persistent asthma without complication (HCC) Class 3 severe obesity due to excess calories with serious comorbidity and body mass index (BMI) of 40.0 to 44.9 in adult ([facility]) Mixed hyperlipidemia Mixed hyperlipidemia Encounter for monitoring opioid maintenance therapy Chronic neck and back pain Chronic pain syndrome Type 2 diabetes mellitus without complication, with long-term current use of insulin (HCC)- Primary Uncontrolled type 2 diabetes mellitus with hyperglycemia (HCC) Lumbar radiculopathy Thoracic or lumbosacral neuritis or radiculitis, unspecified Moderate persistent asthma without complication (HCC)- Primary Chronic neck and back pain Primary hypertension Unspecified essential hypertension Type 2 diabetes mellitus without complication, with long-term current use of insulin (HCC) Uncontrolled type 2 diabetes mellitus with hyperglycemia (HCC) Mixed hyperlipidemia Mixed hyperlipidemia Class 3 severe obesity due to excess calories with serious comorbidity and body mass index (BMI) of 40.0 to 44.9 in adult ([facility]) Type 2 diabetes mellitus without complication, without long-term current use of insulin (HCC)- Primary Iron deficiency anemia secondary to inadequate dietary iron intake Primary hypertension Unspecified essential hypertension Primary hypertension- Primary Unspecified essential hypertension Moderate persistent asthma without complication (HCC) Type 2 diabetes mellitus without complication, with long-term current use of insulin (HCC) Uncontrolled type 2 diabetes mellitus with hyperglycemia (HCC) Type 2 diabetes mellitus without complication, without long-term current use of insulin (HCC)- Primary Chronic pain syndrome Primary hypertension Unspecified essential hypertension Class 3 severe obesity due to excess calories with serious comorbidity and body mass index (BMI) of 40.0 to 44.9 in adult ([facility]) Moderate episode of recurrent major depressive disorder (HCC) Chronic neck and back pain Type 2 diabetes mellitus without complication, without long-term current use of insulin (HCC)- Primary documented in this encounter [facility] HealthcareEvaluation note* Diagnosis Type 2 diabetes mellitus without complication, without long-term current use of insulin (HCC)- Primary RLS (restless legs syndrome) Restless legs syndrome (RLS) Hyperlipidemia, unspecified hyperlipidemia type Primary hypertension Unspecified essential hypertension Moderate persistent asthma without complication (HCC) Class 3 severe obesity due to excess calories with serious comorbidity and body mass index (BMI) of 40.0 to 44.9 in adult ([facility]) Uncontrolled type 2 diabetes mellitus with hyperglycemia (HCC)- Primary Chronic neck and back pain Primary hypertension Unspecified essential hypertension Low back pain of thoracolumbar region with sciatica Moderate persistent asthma without complication (HCC)- Primary Primary hypertension Unspecified essential hypertension Uncontrolled type 2 diabetes mellitus with hyperglycemia (HCC) Low back pain of thoracolumbar region with sciatica Type 2 diabetes mellitus without complication, with long-term current use of insulin (HCC) Chronic neck and back pain Uncontrolled type 2 diabetes mellitus with hyperglycemia (HCC)- Primary Primary hypertension Unspecified essential hypertension Chronic neck and back pain Low back pain of thoracolumbar region with sciatica Encounter for monitoring opioid maintenance therapy Uncontrolled type 2 diabetes mellitus with hyperglycemia (HCC)- Primary Periodic limb movement Periodic limb movement disorder Restless legs syndrome Restless legs syndrome (RLS) Uncontrolled type 2 diabetes mellitus with hyperglycemia (HCC)- Primary Hyperlipidemia, unspecified hyperlipidemia type Low back pain of thoracolumbar region with sciatica Primary hypertension Unspecified essential hypertension Chronic neck and back pain Uncontrolled type 2 diabetes mellitus with hyperglycemia (HCC)- Primary Primary hypertension Unspecified essential hypertension Moderate persistent asthma without complication (HCC) Class 3 severe obesity due to excess calories with serious comorbidity and body mass index (BMI) of 40.0 to 44.9 in adult ([facility]) Mixed hyperlipidemia Mixed hyperlipidemia Encounter for monitoring opioid maintenance therapy Chronic neck and back pain Chronic pain syndrome Type 2 diabetes mellitus without complication, with long-term current use of insulin (HCC)- Primary Uncontrolled type 2 diabetes mellitus with hyperglycemia (HCC) Lumbar radiculopathy Thoracic or lumbosacral neuritis or radiculitis, unspecified Moderate persistent asthma without complication (HCC)- Primary Chronic neck and back pain Primary hypertension Unspecified essential hypertension Type 2 diabetes mellitus without complication, with long-term current use of insulin (HCC) Uncontrolled type 2 diabetes mellitus with hyperglycemia (HCC) Mixed hyperlipidemia Mixed hyperlipidemia Class 3 severe obesity due to excess calories with serious comorbidity and body mass index (BMI) of 40.0 to 44.9 in adult ([facility]) Type 2 diabetes mellitus without complication, without long-term current use of insulin (HCC)- Primary Iron deficiency anemia secondary to inadequate dietary iron intake Primary hypertension Unspecified essential hypertension Primary hypertension- Primary Unspecified essential hypertension Moderate persistent asthma without complication (HCC) Type 2 diabetes mellitus without complication, with long-term current use of insulin (HCC) Uncontrolled type 2 diabetes mellitus with hyperglycemia (HCC) Type 2 diabetes mellitus without complication, without long-term current use of insulin (HCC)- Primary Chronic pain syndrome Primary hypertension Unspecified essential hypertension Class 3 severe obesity due to excess calories with serious comorbidity and body mass index (BMI) of 40.0 to 44.9 in adult ([facility]) Moderate episode of recurrent major depressive disorder (HCC) Chronic neck and back pain Chronic neck and back pain documented in this encounter [facility] HealthcareEvaluation note* Diagnosis Type 2 diabetes mellitus without complication, without long-term current use of insulin (HCC)- Primary RLS (restless legs syndrome) Restless legs syndrome (RLS) Hyperlipidemia, unspecified hyperlipidemia type Primary hypertension Unspecified essential hypertension Moderate persistent asthma without complication (HCC) Class 3 severe obesity due to excess calories with serious comorbidity and body mass index (BMI) of 40.0 to 44.9 in adult ([facility]) Uncontrolled type 2 diabetes mellitus with hyperglycemia (HCC)- Primary Chronic neck and back pain Primary hypertension Unspecified essential hypertension Low back pain of thoracolumbar region with sciatica Moderate persistent asthma without complication (HCC)- Primary Primary hypertension Unspecified essential hypertension Uncontrolled type 2 diabetes mellitus with hyperglycemia (HCC) Low back pain of thoracolumbar region with sciatica Type 2 diabetes mellitus without complication, with long-term current use of insulin (HCC) Chronic neck and back pain Uncontrolled type 2 diabetes mellitus with hyperglycemia (HCC)- Primary Primary hypertension Unspecified essential hypertension Chronic neck and back pain Low back pain of thoracolumbar region with sciatica Encounter for monitoring opioid maintenance therapy Uncontrolled type 2 diabetes mellitus with hyperglycemia (HCC)- Primary Periodic limb movement Periodic limb movement disorder Restless legs syndrome Restless legs syndrome (RLS) Uncontrolled type 2 diabetes mellitus with hyperglycemia (HCC)- Primary Hyperlipidemia, unspecified hyperlipidemia type Low back pain of thoracolumbar region with sciatica Primary hypertension Unspecified essential hypertension Chronic neck and back pain Uncontrolled type 2 diabetes mellitus with hyperglycemia (HCC)- Primary Primary hypertension Unspecified essential hypertension Moderate persistent asthma without complication (HCC) Class 3 severe obesity due to excess calories with serious comorbidity and body mass index (BMI) of 40.0 to 44.9 in adult ([facility]) Mixed hyperlipidemia Mixed hyperlipidemia Encounter for monitoring opioid maintenance therapy Chronic neck and back pain Chronic pain syndrome Type 2 diabetes mellitus without complication, with long-term current use of insulin (HCC)- Primary Uncontrolled type 2 diabetes mellitus with hyperglycemia (HCC) Lumbar radiculopathy Thoracic or lumbosacral neuritis or radiculitis, unspecified Moderate persistent asthma without complication (HCC)- Primary Chronic neck and back pain Primary hypertension Unspecified essential hypertension Type 2 diabetes mellitus without complication, with long-term current use of insulin (HCC) Uncontrolled type 2 diabetes mellitus with hyperglycemia (HCC) Mixed hyperlipidemia Mixed hyperlipidemia Class 3 severe obesity due to excess calories with serious comorbidity and body mass index (BMI) of 40.0 to 44.9 in adult ([facility]) Type 2 diabetes mellitus without complication, without long-term current use of insulin (HCC)- Primary Iron deficiency anemia secondary to inadequate dietary iron intake Primary hypertension Unspecified essential hypertension Primary hypertension- Primary Unspecified essential hypertension Moderate persistent asthma without complication (HCC) Type 2 diabetes mellitus without complication, with long-term current use of insulin (HCC) Uncontrolled type 2 diabetes mellitus with hyperglycemia (HCC) Type 2 diabetes mellitus without complication, without long-term current use of insulin (HCC)- Primary Chronic pain syndrome Primary hypertension Unspecified essential hypertension Class 3 severe obesity due to excess calories with serious comorbidity and body mass index (BMI) of 40.0 to 44.9 in adult ([facility]) Moderate episode of recurrent major depressive disorder (HCC) Chronic neck and back pain Encounter for subsequent annual wellness visit (AWV) in Medicare patient- Primary Chronic pain syndrome Primary hypertension Unspecified essential hypertension Uncontrolled type 2 diabetes mellitus with hyperglycemia (HCC) Prostate cancer screening Special screening for malignant neoplasm of prostate Mixed hyperlipidemia Mixed hyperlipidemia Iron deficiency anemia secondary to inadequate dietary iron intake Moderate persistent asthma without complication (HCC) Colon cancer screening Special screening for malignant neoplasms, colon documented in this encounter [facility] HealthcareEvaluation note* Diagnosis Type 2 diabetes mellitus without complication, without long-term current use of insulin (HCC)- Primary RLS (restless legs syndrome) Restless legs syndrome (RLS) Hyperlipidemia, unspecified hyperlipidemia type Primary hypertension Unspecified essential hypertension Moderate persistent asthma without complication (HCC) Class 3 severe obesity due to excess calories with serious comorbidity and body mass index (BMI) of 40.0 to 44.9 in adult ([facility]) Uncontrolled type 2 diabetes mellitus with hyperglycemia (HCC)- Primary Chronic neck and back pain Primary hypertension Unspecified essential hypertension Low back pain of thoracolumbar region with sciatica Moderate persistent asthma without complication (HCC)- Primary Primary hypertension Unspecified essential hypertension Uncontrolled type 2 diabetes mellitus with hyperglycemia (HCC) Low back pain of thoracolumbar region with sciatica Type 2 diabetes mellitus without complication, with long-term current use of insulin (HCC) Chronic neck and back pain Uncontrolled type 2 diabetes mellitus with hyperglycemia (HCC)- Primary Primary hypertension Unspecified essential hypertension Chronic neck and back pain Low back pain of thoracolumbar region with sciatica Encounter for monitoring opioid maintenance therapy Uncontrolled type 2 diabetes mellitus with hyperglycemia (HCC)- Primary Periodic limb movement Periodic limb movement disorder Restless legs syndrome Restless legs syndrome (RLS) Uncontrolled type 2 diabetes mellitus with hyperglycemia (HCC)- Primary Hyperlipidemia, unspecified hyperlipidemia type Low back pain of thoracolumbar region with sciatica Primary hypertension Unspecified essential hypertension Chronic neck and back pain Uncontrolled type 2 diabetes mellitus with hyperglycemia (HCC)- Primary Primary hypertension Unspecified essential hypertension Moderate persistent asthma without complication (HCC) Class 3 severe obesity due to excess calories with serious comorbidity and body mass index (BMI) of 40.0 to 44.9 in adult ([facility]) Mixed hyperlipidemia Mixed hyperlipidemia Encounter for monitoring opioid maintenance therapy Chronic neck and back pain Chronic pain syndrome Type 2 diabetes mellitus without complication, with long-term current use of insulin (HCC)- Primary Uncontrolled type 2 diabetes mellitus with hyperglycemia (HCC) Lumbar radiculopathy Thoracic or lumbosacral neuritis or radiculitis, unspecified Moderate persistent asthma without complication (HCC)- Primary Chronic neck and back pain Primary hypertension Unspecified essential hypertension Type 2 diabetes mellitus without complication, with long-term current use of insulin (HCC) Uncontrolled type 2 diabetes mellitus with hyperglycemia (HCC) Mixed hyperlipidemia Mixed hyperlipidemia Class 3 severe obesity due to excess calories with serious comorbidity and body mass index (BMI) of 40.0 to 44.9 in adult ([facility] [place]) Type 2 diabetes mellitus without complication, without long-term current use of insulin (HCC)- Primary Iron deficiency anemia secondary to inadequate dietary iron intake Primary hypertension Unspecified essential hypertension Primary hypertension- Primary Unspecified essential hypertension Moderate persistent asthma without complication (HCC) Type 2 diabetes mellitus without complication, with long-term current use of insulin (HCC) Uncontrolled type 2 diabetes mellitus with hyperglycemia (HCC) Type 2 diabetes mellitus without complication, without long-term current use of insulin (HCC)- Primary Chronic pain syndrome Primary hypertension Unspecified essential hypertension Class 3 severe obesity due to excess calories with serious comorbidity and body mass index (BMI) of 40.0 to 44.9 in adult ([facility] [place]) Moderate episode of recurrent major depressive disorder (HCC) Chronic neck and back pain Encounter for subsequent annual wellness visit (AWV) in Medicare patient- Primary Chronic pain syndrome Primary hypertension Unspecified essential hypertension Uncontrolled type 2 diabetes mellitus with hyperglycemia (HCC) Prostate cancer screening Special screening for malignant neoplasm of prostate Mixed hyperlipidemia Mixed hyperlipidemia Iron deficiency anemia secondary to inadequate dietary iron intake Moderate persistent asthma without complication (HCC) Colon cancer screening Special screening for malignant neoplasms, colon Uncontrolled type 2 diabetes mellitus with hyperglycemia (HCC)- Primary documented in this encounter [facility] HealthcareEvaluation note* Diagnosis Type 2 diabetes mellitus without complication, without long-term current use of insulin (HCC)- Primary RLS (restless legs syndrome) Restless legs syndrome (RLS) Hyperlipidemia, unspecified hyperlipidemia type Primary hypertension Unspecified essential hypertension Moderate persistent asthma without complication (HCC) Class 3 severe obesity due to excess calories with serious comorbidity and body mass index (BMI) of 40.0 to 44.9 in adult ([facility] [place]) Uncontrolled type 2 diabetes mellitus with hyperglycemia (HCC)- Primary Chronic neck and back pain Primary hypertension Unspecified essential hypertension Low back pain of thoracolumbar region with sciatica Moderate persistent asthma without complication (HCC)- Primary Primary hypertension Unspecified essential hypertension Uncontrolled type 2 diabetes mellitus with hyperglycemia (HCC) Low back pain of thoracolumbar region with sciatica Type 2 diabetes mellitus without complication, with long-term current use of insulin (HCC) Chronic neck and back pain Uncontrolled type 2 diabetes mellitus with hyperglycemia (HCC)- Primary Primary hypertension Unspecified essential hypertension Chronic neck and back pain Low back pain of thoracolumbar region with sciatica Encounter for monitoring opioid maintenance therapy Uncontrolled type 2 diabetes mellitus with hyperglycemia (HCC)- Primary Periodic limb movement Periodic limb movement disorder Restless legs syndrome Restless legs syndrome (RLS) Uncontrolled type 2 diabetes mellitus with hyperglycemia (HCC)- Primary Hyperlipidemia, unspecified hyperlipidemia type Low back pain of thoracolumbar region with sciatica Primary hypertension Unspecified essential hypertension Chronic neck and back pain Uncontrolled type 2 diabetes mellitus with hyperglycemia (HCC)- Primary Primary hypertension Unspecified essential hypertension Moderate persistent asthma without complication (HCC) Class 3 severe obesity due to excess calories with serious comorbidity and body mass index (BMI) of 40.0 to 44.9 in adult ([facility]) Mixed hyperlipidemia Mixed hyperlipidemia Encounter for monitoring opioid maintenance therapy Chronic neck and back pain Chronic pain syndrome Type 2 diabetes mellitus without complication, with long-term current use of insulin (HCC)- Primary Uncontrolled type 2 diabetes mellitus with hyperglycemia (HCC) Lumbar radiculopathy Thoracic or lumbosacral neuritis or radiculitis, unspecified Moderate persistent asthma without complication (HCC)- Primary Chronic neck and back pain Primary hypertension Unspecified essential hypertension Type 2 diabetes mellitus without complication, with long-term current use of insulin (HCC) Uncontrolled type 2 diabetes mellitus with hyperglycemia (HCC) Mixed hyperlipidemia Mixed hyperlipidemia Class 3 severe obesity due to excess calories with serious comorbidity and body mass index (BMI) of 40.0 to 44.9 in adult ([facility]) Type 2 diabetes mellitus without complication, without long-term current use of insulin (HCC)- Primary Iron deficiency anemia secondary to inadequate dietary iron intake Primary hypertension Unspecified essential hypertension Primary hypertension- Primary Unspecified essential hypertension Moderate persistent asthma without complication (HCC) Type 2 diabetes mellitus without complication, with long-term current use of insulin (HCC) Uncontrolled type 2 diabetes mellitus with hyperglycemia (HCC) Type 2 diabetes mellitus without complication, without long-term current use of insulin (HCC)- Primary Chronic pain syndrome Primary hypertension Unspecified essential hypertension Class 3 severe obesity due to excess calories with serious comorbidity and body mass index (BMI) of 40.0 to 44.9 in adult ([facility]) Moderate episode of recurrent major depressive disorder (HCC) Chronic neck and back pain Encounter for subsequent annual wellness visit (AWV) in Medicare patient- Primary Chronic pain syndrome Primary hypertension Unspecified essential hypertension Uncontrolled type 2 diabetes mellitus with hyperglycemia (HCC) Prostate cancer screening Special screening for malignant neoplasm of prostate Mixed hyperlipidemia Mixed hyperlipidemia Iron deficiency anemia secondary to inadequate dietary iron intake Moderate persistent asthma without complication (HCC) Colon cancer screening Special screening for malignant neoplasms, colon Chronic pain syndrome documented in this encounter [facility] Narrative - Reported* Type Description Date Medical History restless leg syndrome Medical History seasonal allergies Medical History DM Medical History Arthritis Medical History asthma Medical History diabetes mallitus Surgical History left knee surgery x 2 Surgical History L1-L5 ablation 08/2021 Hospitalization History No know Hospitalization history [facility] Other History general Narrative - Reported* Type Description Date Medical History restless leg syndrome Medical History seasonal allergies Medical History DM Medical History Arthritis Medical History asthma Medical History diabetes mallitus Surgical History left knee surgery x 2 Surgical History L1-L5 ablation 08/2021 Hospitalization History No Hospitalization histo ry information [facility] Other Hisiklk general Narrative - Reported* Type Description Date Medical History restless leg syndrome Medical History seasonal allergies Medical History DM Medical History Arthritis Medical History asthma Medical History diabetes mallitus Surgical History left knee surgery x 2 Surgical History L1-L5 ablation 08/2021 Hospitalization History see above [facility] Other Hospital course Narrative No data available for this section [facility] Hospital Discharge instructions Additional Instructions Continue your current medication May apply ice to the sore area To do stretching May use topical medicine such as IcyHot with lidocaine Bengay with lidocaine or lidocaine patch Follow-up with your back specialist Return to the ER for more severe pain weakness in your legs loss of bladder bowel control high fever or any other [facility] Work Phone: Hospital Discharge instructions Additional Instructions May apply 1-2 lidocaine patches over sores areas daily Continue your other medication Follow-up with your doctor Return to the ER for worsening pain weakness in your legs loss of bladder bowel control or any other concernsOhio[facility] Work Phone: Hospital Discharge instructions No data available for this section [facility] Progress note No data available for this section [facility] Reason for referral (narrative)* Diagnostic Procedure Only (Routine) - Closed Specialty Diagnoses / Procedures Referred By Contac t Referred To Contact XR IMAGING Diagnoses Localized, primary osteoarthritis of hand, unspecified laterality Arthritis Chronic right-sided low back pain without sciatica Procedures XR HAND/WRIST SURVEY ARTHRITIS 1V PA BILATERAL JOINT SURVEY SINGLE VIEW 2 [place] [address] [place] [id number] Xr Imaging Referral ID Status Reason Start Date Expiration Date V isits Requested Visits Authorized [id number] Closed Auto-Generate d Referral 10/30/2022 11/29/2023 1 1 [facility] for referral (narrative)* Diagnostic Procedure Only (Routine) - Closed Specialty Diagnoses / Procedures Referred By Contac t Referred To Contact XR IMAGING Diagnoses Localized, primary osteoarthritis of hand, unspecified laterality Arthritis Chronic right-sided low back pain without sciatica Procedures XR HAND/WRIST SURVEY ARTHRITIS 1V PA BILATERAL JOINT SURVEY SINGLE VIEW 2 [place] [address] [place] [address] Xr Imaging Referral ID Status Reason Start Date Expiration Date V isits Requested Visits Authorized [id number] Closed Auto-Generate d Referral 10/30/2022 11/29/2023 1 1 [facility] for visit Narrative* Outpatient Procedure (Routine) - Closed Specialty Diagnoses / Procedures Referred By Contac t Referred To Contact Spine Health / SPINE Diagnoses Sacroiliitis, not elsewhere classified Injection Type - Intra-articular Sacroiliac joint injection: Bilateral CPT 05175 Procedures INJECT SI JOINT ARTHRGRPHY&/ANES/STEROI D W/JB PROCEDURE SPINE Kb Lorenzo DO [address] [place] [address] Spine Med Main [address] [place] [address] Referral ID Status Reason Start Date Expiration Date Visits Re quested Visits Authorized [id number] Closed 11/16/2022 12/05/2022 1 1 [facility] Chief Complaint and Reason for Visit Chief [...] No March 25 7:08am Reason for Referral Specialty Diagnoses / Procedures Referred By Contac t Referred To Contact Diagnoses Type 2 diabetes mellitus without complication, with long-term current use of insulin ([facility]) Uncontrolled type 2 diabetes mellitus with hyperglycemia ([facility]) Denis Dunlap NP [address] [place] [address] Referral ID Status Reason Start Date Expiration Date V isits Requested Visits Authorized [id number] Pending Review 1 1 Specialty Diagnoses / Procedures Referred By Contac t Referred To Contact Diagnoses Moderate persistent asthma without complication ([facility]) Denis Dunlap NP [address] [place] [address] Referral ID Status Reason Start Date Expiration Date V isits Requested Visits Authorized [id number] Pending Review 1 1 Specialty Diagnoses / Procedures Referred By Contac t Referred To Contact Endocrinology Diagnoses Uncontrolled type 2 diabetes mellitus with hyperglycemia ([facility]) Procedures [place] OFFICE/OUTPATIENT NEW HIGH MDM 60 MINUTES Denis Dunlap NP [address] [place] [address] Referral ID Status Reason Start Date Expiration Date Visits Requested Visits Authorized [id number] Pending Review Specialty Services Required 05/27/2024 11/23/2024 1 1 Reason second opinion, surg ical consult Diagnosis 1 Inflammation of righ t sacroiliac joint (M46.1) Diagnosis 2 Lumbar spondylosis ( M47.816) Referral Organization [facility] urosurgery Referring Provider First Name Francis Referring Provider Last Name Cortney Referring Provider Specialty Neurologica l Surgery Referred Organization [facility] Referred Address [address] [place],[address] Referred Provider Specialty Neurosurgery Referral Priority Routine Reason evaluate and treat f or sacroiliac and axial back pain \ Diagnosis 1 Sacro-iliac pain (M5 3.3) Referral Organization [facility] urosurgery Referring Provider First Name Francis Referring Provider Last Name Cortney Referring Provider Specialty Neurologica l Surgery Referred Organization [facility] Pain Managemen t Bone Afognak Referred Provider Nahid Estevez Referred Address [address] [place],[address] Referred Provider Specialty Pain Medicin e Referral Priority Routine Specialty Diagnoses / Procedures Referred By Contac t Referred To Contact Diagnoses Disturbance of sleep pattern associated with pain Procedures CONSULT TO SLEEP MEDICINE - ADULT OFFICE/OUTPATIENT [facility] 60-74 MINUTES Kb Lorenzo, DO [address] [place] [address] Referral ID Status Reason Start Date Expiration Date Visits Requested Visits Authorized [id number] Authorized PCP Requested Referral 11/15/2022 11/15/2023 1 1 Specialty Diagnoses / Procedures Referred By Contac t Referred To Contact [facility] [place] Diagnoses Chronic pain syndrome Procedures CONSULT TO [facility] (CHRONIC PAIN) OFFICE/OUTPATIENT [facility] 60-74 MINUTES Kb Lorenzo, DO [address] [place] [address] Referral ID Status Reason Start Date Expiration Date Visits Requested Visits Authorized [id number] Pending Review PCP Requested Referral 11/15/2022 11/15/2023 1 1 Specialty Diagnoses / Procedures Referred By Contac t Referred To Contact [facility] Diagnoses Chronic pain syndrome Procedures CONSULT TO [facility] PHYSICIAN OFFICE/OUTPATIENT [facility] 60-74 MINUTES Kb Lorenzo, DO [address] [place] [address] [place] [address] Referral ID Status Reason Start Date Expiration Date V isits Requested Visits Authorized [id number] Closed PCP Requested Referral 11/15/2022 11/15/2023 1 1 Specialty Diagnoses / Procedures Referred By Jevon penaloza Referred To Contact [facility] Diagnoses Chronic bilateral low back pain without sciatica Chronic pain syndrome Procedures CONSULT TO PHYSICAL THERAPY PHYSICAL THERAPY EVALUATION HIGH COMPLEX 45 MINS Kb Lorenzo DO [address] [place] [address] [facility] [address] [place] [address] Referral ID Status Reason Start Date Expiration Date Visits Requested Visits Authorized [id number] Pending Review Auto-Generat ed Referral 11/15/2022 11/15/2023 1 1 Reason 09/28/22 @ 11:30am Evaluate and Treat R Hip Arthropathy Diagnosis 1 Trochanteric bursiti s of right hip (M70.61) Referral Organization [facility] urosurgery Referring Provider First Name Francis Referring Provider Last Name Cortney Referring Provider Specialty Neurologica l Surgery Referred Organization [facility] Ortho pedics Referred Provider Milton Valentine II Referred Address [address] [facility] [place],[address] Referred Provider Specialty Orthopedic S urgery Referral Priority Routine Referral Appointment Date 2022-09-28 [facility]18[facility]44 PM >Received today and sent P2P [facility] 09/28/2022 02:47:43 PM >[facility] been [facility]04[facility]2022 08:58:01 AM >Consult notes not locked yet [facility] 10/06/2022 11:26:02 AM >Consult notes not locked yet [facility] 10/10/2022 09:04:40 AM >Consult notes not locked yet [facility] 10/11/2022 09:00:47 AM >Consult notes not locked yet [facility] 10/12/2022 08:14:26 AM >Consult notes not locked yet [facility] 10/13/2022 12:17:19 PM >Office notes not locked yet [facility] 10/16/2022 10:10:49 AM >Sent telephone encounter to referring physician to let them know that the consult letter is ready for their review Specialty Diagnoses / Procedures Referred By Contac t Referred To Contact [facility] [place] Diagnoses Chronic bilateral low back pain without sciatica Procedures CONSULT TO [facility] (CHRONIC PAIN) OFFICE/OUTPATIENT [facility] 60-74 MINUTES Olayinka Boyd PA-C [address] [place] [id number] Referral ID Status Reason Start Date Expiration Date Visits Requested Visits Authorized [id number] Pending Review PCP Requested Referral 10/19/2022 10/19/2023 1 1 Summary Purpose Family History No Family History Records FoundNo Family History Records FoundNo Family History Records FoundNo Family History Records FoundNo Family History Records Found No data available for this section No data available for this section No data available for this section No Family History Records FoundNo Family History [...] 2 [place] [address] [place] [id number] Xr Imaging Referral ID Status Reason Start Date Expiration Date V isits Requested Visits Authorized [id number] Closed Auto-Generate d Referral 10/30/2022 11/29/2023 1 1 Specialty Diagnoses / Procedures Referred By Contac t Referred To [facility] [place] Diagnoses Chronic bilateral low back pain without sciatica Procedures CONSULT TO [facility] (CHRONIC PAIN) OFFICE/OUTPATIENT [facility] 60-74 MINUTES Olayinka Boyd PA-C [address] [place] [id number] Referral ID Status Reason Start Date Expiration Date Visits Requested Visits Authorized [id number] Pending Review PCP Requested Referral 10/19/2022 10/19/2023 1 1 Reason Comments pre inj phone call Reason Comments Consult Specialty Diagnoses / Procedures Referred By Contac t Referred To [facility] [place] Diagnoses Chronic pain syndrome Procedures CONSULT TO [facility] (CHRONIC PAIN) OFFICE/OUTPATIENT NEW HIGH MDM 60-74 MINUTES Kb LorenzoDO [address] [place] [address] Referral ID Status Reason Start Date Expiration Date Visits Requested Visits Authorized [id number] Pending Review PCP Requested Referral 11/15/2022 11/15/2023 [...] Reason Onset Date Comments Med Refill 08/06/2024 Reason Onset Date Comments Med Refill 08/21/2024 Reason Onset Date Comments Med Refill 09/03/2024 Reason Onset Date Comments Med Refill 06/24/2024 Reason Onset Date Comments Med Refill 09/17/2024 Reason Onset Date Comments Med Refill 09/22/2024 Reason Onset Date Comments Med Refill 05/26/2024 Reason Comments Follow-up DM, PT IS HAVING A P AIN PUMP PUT IN Jun AT [facility]. BUT SUGARS ARE TOO HIGH. PT SAID THEY ARE RUNNING IN THE 250'S, LAST A1C WAS 11. PT IS CURRENTLY ON INSULIN, GLIPIZIDE, AND JANUVIA Reason Comments Back Pain Leg Pain Tremors Reason Comments Follow-up Reason Onset Date Comments Med Refill 10/13/2024 Reason Onset Date Comments Med Refill 10/16/2024 Reason Onset Date Comments Med Refill 10/27/2024 Reason Onset Date Comments Med Refill 11/14/2024 Reason Comments Follow-up Reason Onset Date Comments 01/01 pending answer from sleep lab 01/01/2025 Reason Onset Date Comments Med Refill 01/12/2025 Reason Onset Date Comments Med Refill 01/15/2025 Reason Onset Date Comments Med Refill 02/10/2025 Reason Onset Date Comments Med Refill 02/16/2025 Reason Onset Date Comments Med Refill 03/19/2025 Reason Comments Medicare Annual Wellness Visit Initial Reason Onset Date Comments Med Refill 04/15/2025 Care Teams (unrecognized sec tion and content) Team Status: Inactive Member Role Status Dates Carmen Wheatley MD Primary Care Provider Active Milton Valentine II, MD Attending Provider Active Team Status: Active Member Role Status Dates Carmen Wheatley MD Primary Care Provider Active Gate Clerk Relationship Specialty Start Date End Date Shaikh Prater MD [address] [place] [address] PCP - General Primary Care 10/30/22 Gate Clerk Relationship Specialty Start Date End Date Shaikh Prater MD [facility] [place] [address] PCP - General Primary Care 10/30/22 Gate Clerk Relationship Specialty Start Date End Date Shaikh Prater MD [address] [place] [address] PCP - General Primary Care 10/30/22 Gate Clerk Relationship Specialty Start Date End Date Shaikh Prater MD [address] [place] [address] PCP - General Primary Care 10/30/22 Gate Clerk Relationship Specialty Start Date End Date Shaikh Prater MD [address] [place] [address] PCP - General Primary Care 10/30/22 Gate Clerk Relationship Specialty Start Date End Date Shaikh Prater MD [address] [place] [address] PCP - General Primary Care 10/30/22 Team Status: Active Member Role Status Dates Shaikh Moi MD Primary Care Provider Active Team Status: Inactive Member Role Status Dates Kristina Delgado [facility] Emergency Provider Active Shaikh Moi MD Primary Care Provider Active Gate Clerk Relationship Specialty Start Date End Date Shaikh Prater MD [address] [place] [address] PCP - General Primary Care 10/30/22 Gate Clerk Relationship Specialty Start Date End Date Shaikh Prater MD [address] [place] [place] [address] PCP - General Primary Care 10/30/22 Gate Clerk Relationship Specialty Start Date End Date Shaikh Prater MD [facility] [place] [address] PCP - General Primary Care 10/30/22 Gate Clerk Relationship Specialty Start Date End Date Shaikh Prater MD [address] [place] [address] PCP - General Primary Care 10/30/22 Team Status: Inactive Member Role Status Dates Shaikh Moi MD Primary Care Provider Active [facility] Attending Provider Active Team Status: Inactive Member Role Status Dates Shaikh Moi MD Primary Care Provider Active LARRY López-BC Attending Provider, Referri ng Provider Active Team Status: Inactive Member Role Status Beth Prater MD Primary Care Provider Active Kristina Delgado [facility] Emergency Provider Active Team Status: Inactive Member Role Status Dates Shaikh Moi MD Primary Care Provider Active Tracy Wu APRN Attending Provider Active Gate Clerk Relationship Specialty Start Date End Date Shaikh Prater MD PCP - General Internal Medicine 10/08/22 Gate Clerk Relationship Specialty Start Date End Date Shaikh Prater MD PCP - General Internal Medicine 10/08/22 Gate Clerk Relationship Specialty Start Date End Date Shaikh Prater MD [address] [place] [address] PCP - General Internal Medicine 11/19/23 Gate Clerk Relationship Specialty Start Date End Date Shaikh Prater MD [address] [place] [address] PCP - General Internal Medicine 11/19/23 Gate Clerk Relationship Specialty Start Date End Date J Luis Cárdenas MD [address] [place] [address] PCP - General Family Medicine 05/08/24 Denis Dunlap NP [address] [place] [address] Nurse Practitioner Family Medicine 05/08/24 Gate Clerk Relationship Specialty Start Date End Date J Luis Cárdenas MD [address] [place] [address] PCP - General Family Medicine 05/08/24 Denis Dunlap NP [address] [place] [address] Nurse Practitioner Family Medicine 05/08/24 Gate Clerk Relationship Specialty Start Date End Date J Luis Cárdenas MD [address] [place] [address] PCP - General Family Medicine 05/08/24 Denis Dunlap NP [address] [place] [address] Nurse Practitioner Family Medicine 05/08/24 Gate Clerk Relationship Specialty Start Date End Date J Luis Cárdenas MD [address] [place] [address] PCP - General Family Medicine 05/08/24 Denis Dunlap NP [address] [place] [address] Nurse Practitioner Family Medicine 05/08/24 Gate Clerk Relationship Specialty Start Date End Date J Luis Cárdenas MD [address] [place] [address] PCP - General Family Medicine 05/08/24 Denis Dunlap NP [address] [place] [address] Nurse Practitioner Family Medicine 05/08/24 Gate Clerk Relationship Specialty Start Date End Date J Luis Cárdenas MD [address] [place] [address] PCP - General Family Medicine 05/08/24 07/27/24 Denis Dunlap NP [address] [place] [address] Nurse Practitioner Family Medicine 05/08/24 Gate Clerk Relationship Specialty Start Date End Date Unallocated, Noms MD Polly [address] [place] [address] PCP - General Family Medicine 07/28/24 Denis Dunlap NP [address] [place] [address] Nurse Practitioner Family Medicine 05/08/24 Gate Clerk Relationship Specialty Start Date End Date Unallocated, Noms MD Polly [address] [place] [address] PCP - General Family Medicine 07/28/24 Denis Dunalp NP [address] [place] [address] Nurse Practitioner Family Medicine 05/08/24 Gate Clerk Relationship Specialty Start Date End Date Unallocated, Noms MD Pol[address] [place] [address] PCP - General Family Medicine 07/28/24 Denis Dunlap NP [address] [place] [address] Nurse Practitioner Family Medicine 05/08/24 Gate Clerk Relationship Specialty Start Date End Date J Luis Cárdenas MD [address] [place] [address] PCP - General Family Medicine 08/07/24 Denis Dunlap NP [address] [place] [address] Nurse Practitioner Family Medicine 05/08/24 Gate Clerk Relationship Specialty Start Date End Date J Luis Cárdenas MD [address] [place] [address] PCP - General Family Medicine 08/07/24 Denis Dunlap NP [address] [place] [address] Nurse Practitioner Family Medicine 05/08/24 Gate Clerk Relationship Specialty Start Date End Date J Luis Cárdenas MD [address] [place] [address] PCP - General Family Medicine 08/07/24 Denis Dunlap NP [address] [place] [address] Nurse Practitioner Family Medicine 05/08/24 Gate Clerk Relationship Specialty Start Date End Date J Luis Cárdenas MD [address] [place] [address] PCP - General Family Medicine 08/07/24 Denis Dunlap NP [address] [place] [address] Nurse Practitioner Family Medicine 05/08/24 Gate Clerk Relationship Specialty Start Date End Date J Luis Cárdenas MD [address] [place] [address] PCP - General Family Medicine 08/07/24 Denis Dunlap NP [address] [place] [address] Nurse Practitioner Family Medicine 05/08/24 Gate Clerk Relationship Specialty Start Date End Date J Luis Cárdenas MD [address] [place] [address] PCP - General Family Medicine 08/07/24 Denis Dunlap NP [address] [place] [address] Nurse Practitioner Family Medicine 05/08/24 Gate Clerk Relationship Specialty Start Date End Date J Luis Cárdenas MD [address] [place] [address] PCP - General Family Medicine 08/07/24 Denis Dunlap NP [address] [place] [address] Nurse Practitioner Family Medicine 05/08/24 Gate Clerk Relationship Specialty Start Date End Date J Luis Cárdenas MD [address] [place] [address] PCP - General Family Medicine 05/08/24 Denis Dunlap NP [address] [place] [address] Nurse Practitioner Family Medicine 05/08/24 Gate Clerk Relationship Specialty Start Date End Date J Luis Cárdenas MD [address] [place] [address] PCP - General Family Medicine 08/07/24 Denis Dunlap NP [address] [place] [address] Nurse Practitioner Family Medicine 05/08/24 Gate Clerk Relationship Specialty Start Date End Date J Luis Cárdenas MD [address] [place] [address] PCP - General Family Medicine 05/08/24 Denis Dunlap NP [address] [place] [address] Nurse Practitioner Family Medicine 05/08/24 Gate Clerk Relationship Specialty Start Date End Date J Luis Cárdenas MD [address] [place] [address] PCP - General Family Medicine 05/08/24 Denis Dunlap NP [address] [place] [address] Nurse Practitioner Family Medicine 05/08/24 Gate Clerk Relationship Specialty Start Date End Date J Luis Cárdenas MD [address] [place] [address] PCP - General Family Medicine 05/08/24 Denis Dunlap NP [address] [place] [address] Nurse Practitioner Family Medicine 05/08/24 Gate Clerk Relationship Specialty Start Date End Date J Luis Cárdenas MD [address] [place] [address] PCP - General Family Medicine 05/08/24 Denis Dunlap NP [address] [place] [address] Nurse Practitioner Family Medicine 05/08/24 Gate Clerk Relationship Specialty Start Date End Date J Luis Cárdenas MD [address] [place] [address] PCP - General Family Medicine 05/08/24 Denis Dunlap NP [address] [place] [address] Nurse Practitioner Family Medicine 05/08/24 Gate Clerk Relationship Specialty Start Date End Date J Luis Cárdenas MD [address] [place] [address] PCP - General Family Medicine 05/08/24 Denis Dunlap NP [address] [place] [address] Nurse Practitioner Family Medicine 05/08/24 Gate Clerk Relationship Specialty Start Date End Date J Luis Cárdenas MD [address] [place] [address] PCP - General Family Medicine 05/08/24 Denis Dunlap NP [address] [place] [address] Nurse Practitioner Family Medicine 05/08/24 Gate Clerk Relationship Specialty Start Date End Date J Luis Cárdenas MD [address] [place] [phone] PCP - General Family Medicine 05/08/24 Denis Dunlap NP [address] [place] [address] Nurse Practitioner Family Medicine 05/08/24 Gate Clerk Relationship Specialty Start Date End Date J Luis Cárdenas MD [address] [place] [phone] PCP - General Family Medicine 05/08/24 Denis Dunlap NP [address] [place] [address] Nurse Practitioner Family Medicine 05/08/24 Gate Clerk Relationship Specialty Start Date End Date J Luis Cárdenas MD [address] [place] [address] PCP - General Family Medicine 08/07/24 Denis Dunlap NP [address] [place] [address] Nurse Practitioner Family Medicine 05/08/24 Gate Clerk Relationship Specialty Start Date End Date J Luis Cárdenas MD [address] [place] [phone] PCP - General Family Medicine 08/07/24 Denis Dunlap NP [address] [place] [address] Nurse Practitioner Family Medicine 05/08/24 Gate Clerk Relationship Specialty Start Date End Date J Luis Cárdenas MD [address] [place] [phone] PCP - General Family Medicine 08/07/24 Denis Dunlap NP [address] [place] [address] Nurse Practitioner Family Medicine 05/08/24 Gate Clerk Relationship Specialty Start Date End Date J Luis Cárdenas MD [address] [place] [address] PCP - General Family Medicine 08/07/24 Denis Dunlap NP [address] [place] [address] Nurse Practitioner Family Medicine 05/08/24 Gate Clerk Relationship Specialty Start Date End Date J Luis Cárdenas MD [address] [place] [phone] PCP - General Family Medicine 08/07/24 Denis Dunlap NP [address] [place] [address] Nurse Practitioner Family Medicine 05/08/24 Gate Clerk Relationship Specialty Start Date End Date J Luis Cárdenas MD [address] [place] [address] PCP - General Family Medicine 08/07/24 Denis Dunlap NP [address] [place] [address] Nurse Practitioner Family Medicine 05/08/24 Gate Clerk Relationship Specialty Start Date End Date J Luis Cádrenas MD [address] [place] [address] PCP - General Family Medicine 08/07/24 Denis Dunlap NP Nurse Practitioner Family Medicine 05/08/24 Gate Clerk Relationship Specialty Start Date End Date J Luis Cárdenas MD [address] [place] [address] PCP - General Family Medicine 08/07/24 Denis Dunlap NP Nurse Practitioner Family Medicine 05/08/24 Gate Clerk Relationship Specialty Start Date End Date J Luis Cárdenas MD [address] [place] [address] PCP - General Family Medicine 08/07/24 Denis Dunlap NP Nurse Practitioner Family Medicine 05/08/24 Gate Clerk Relationship Specialty Start Date End Date J Luis Cárdenas MD [address] [place] [address] PCP - General Family Medicine 08/07/24 Denis Dunlap NP Nurse Practitioner Family Medicine 05/08/24 Gate Clerk Relationship Specialty Start Date End Date J Luis Cárdenas MD [address] [place] [address] PCP - General Family Medicine 08/07/24 Denis Dunlap NP Nurse Practitioner Family Medicine 05/08/24 Gate Clerk Relationship Specialty Start Date End Date J Luis Cárdenas MD [address] [place] [address] PCP - General Family Medicine 08/07/24 Denis Dunlap NP Nurse Practitioner Family Medicine 05/08/24 Gate Clerk Relationship Specialty Start Date End Date J Luis Cárdenas MD [address] [place] [address] PCP - General Family Medicine 08/07/24 Denis Dunlap NP Nurse Practitioner Family Medicine 05/08/24 Gate Clerk Relationship Specialty Start Date End Date J Luis Cárdenas MD [address] [place] [phone] PCP - General Family Medicine 08/07/24 Denis Dunlap NP Nurse Practitioner Family Medicine 05/08/24 Gate Clerk Relationship Specialty Start Date End Date J Luis Cárdenas MD [address] [place] [address] PCP - General Family Medicine 08/07/24 Denis Dunlap NP Nurse Practitioner Family Medicine 05/08/24 Gate Clerk Relationship Specialty Start Date End Date J Luis Cárdenas MD [address] [place] [address] PCP - General Family Medicine 08/07/24 Denis Dunlap NP Nurse Practitioner Family Medicine 05/08/24 Gate Clerk Relationship Specialty Start Date End Date J Luis Cárdenas MD [address] [place] [address] PCP - General Family Medicine 08/07/24 Denis Dunlap NP Nurse Practitioner Family Medicine 05/08/24 Gate Clerk Relationship Specialty Start Date End Date J Luis Cárdenas MD [address] [place] [address] PCP - General Family Medicine 08/07/24 Denis Dunlap NP Nurse Practitioner Family Medicine 05/08/24 Gate Clerk Relationship Specialty Start Date End Date J Luis Cárdenas MD [address] [place] [address] PCP - General Family Medicine 08/07/24 Denis Dunlap NP Nurse Practitioner Family Medicine 05/08/24 Gate Clerk Relationship Specialty Start Date End Date J Luis Cárdenas MD [address] [place] [address] PCP - General Family Medicine 08/07/24 Denis Dunlap NP Nurse Practitioner Family Medicine 05/08/24 Gate Clerk Relationship Specialty Start Date End Date J Luis Cárdenas MD [address] [place] [address] PCP - General Family Medicine 08/07/24 Denis Dunlap NP Nurse Practitioner Family Medicine 05/08/24 Goals (unrecognized [...] or prosecute any alcohol or drug abuse patient.[facility] HealthIn the event this information is protected by the Federal Confidentiality of Alcohol and Drug Abuse Patient Records regulations: The Federal rules restrict any use of the information to criminally investigate or prosecute any alcohol or drug abuse patient.[facility] HealthIn the event this information is protected by the Federal Confidentiality of Alcohol and Drug Abuse Patient Records regulations: The Federal rules restrict any use of the information to criminally investigate or prosecute any alcohol or drug abuse patient.[facility] HealthIn the event this information is protected by the Federal Confidentiality of Alcohol and Drug Abuse Patient Records regulations: The Federal rules restrict any use of the information to criminally investigate or prosecute any alcohol or drug abuse patient.[facility] HealthIn the event this information is protected by the Federal Confidentiality of Alcohol and Drug Abuse Patient Records regulations: The Federal rules restrict any use of the information to criminally investigate or prosecute any alcohol or drug abuse patient.[facility] HealthIn the event this information is protected by the Federal Confidentiality of Alcohol and Drug Abuse Patient Records regulations: The Federal rules restrict any use of the information to criminally investigate or prosecute any alcohol or drug abuse patient.[facility] HealthIn the event this information is protected by the Federal Confidentiality of Alcohol and Drug Abuse Patient Records regulations: The Federal rules restrict any use of the information to criminally investigate or prosecute any alcohol or drug abuse patient.[facility] HealthIn the event this information is protected by the Federal Confidentiality of Alcohol and Drug Abuse Patient Records regulations: The Federal rules restrict any use of the information to criminally investigate or prosecute any alcohol or drug abuse patient.[facility] HealthIn the event this information is protected by the Federal Confidentiality of Alcohol and Drug Abuse Patient Records regulations: The Federal rules restrict any use of the information to criminally investigate or prosecute any alcohol or drug abuse patient.[facility] HealthIn the event this information is protected by the Federal Confidentiality of Alcohol and Drug Abuse Patient Records regulations: The Federal rules restrict any use of the information to criminally investigate or prosecute any alcohol or drug abuse patient.[facility] HealthIn the event this information is protected by the Federal Confidentiality of Alcohol and Drug Abuse Patient Records regulations: The Federal rules restrict any use of the information to criminally investigate or prosecute any alcohol or drug abuse patient.[facility] HealthIn the event this information is protected by the Federal Confidentiality of Alcohol and Drug Abuse Patient Records regulations: The Federal rules restrict any use of the information to criminally investigate or prosecute any alcohol or drug abuse patient.[facility] HealthIn the event this information is protected by the Federal Confidentiality of Alcohol and Drug Abuse Patient Records regulations: The Federal rules restrict any use of the information to criminally investigate or prosecute any alcohol or drug abuse patient.[facility] HealthIn the event this information is protected by the Federal Confidentiality of Alcohol and Drug Abuse Patient Records regulations: The Federal rules restrict any use of the information to criminally investigate or prosecute any alcohol or drug abuse patient.[facility] HealthIn the event this information is protected by the Federal Confidentiality of Alcohol and Drug Abuse Patient Records regulations: The Federal rules restrict any use of the information to criminally investigate or prosecute any alcohol or drug abuse patient.[facility] HealthIn the event this information is protected by the Federal Confidentiality of Alcohol and Drug Abuse Patient Records regulations: The Federal rules restrict any use of the information to criminally investigate or prosecute any alcohol or drug abuse patient.[facility] (unrecognized sect ion and content) No Status Records FoundNo Status Records FoundNo Status Records FoundNo Status Records FoundNo Status Records FoundNo Status Records FoundNo Status Records Found INFORMATION SOURCE (unrecogn ized section and content) DATE CREATED AUTHOR 03/16/2023 Sherrill Beard [facility] DATE CREATED AUTHOR AUTHOR'S ORGANIZ ATION 03/29/2023 [facility] DATE CREATED AUTHOR AUTHOR'S ORGANIZ ATION 05/27/2023 [facility] DATE CREATED AUTHOR AUTHOR'S ORGANIZ ATION 11/16/2023 [facility] DATE CREATED AUTHOR AUTHOR'S ORGANIZ ATION 05/30/2024 [facility] DATE CREATED AUTHOR AUTHOR'S ORGANIZ ATION 02/20/2025 Abhinav Walter [facility] DATE CREATED AUTHOR AUTHOR'S ORGANIZ ATION 04/06/2025 [facility] FOR RECORDS PERTAINING TO PATIENTS WHO ARE [...] BE BASED ON THE PRIMARY CLINICAL RECORDS. [employer] provides no warranty or guarantee of the accuracy or completeness of information in this document.
[2025-04-17 08:05] LABS: Hematocrit 43.7 % (42.0-54.0); Hemoglobin 15.3 g/dL (14.0-18.0); Immature Granulocytes Abs Auto 0.05 10^3/uL (0.00-0.03); Immature Granulocytes Pct Auto 0.5 % (0.0-0.5); Lymphocytes Absolute Auto 2.0 10^3/uL (1.2-3.8); Mean Corpuscular HGB Conc 35.0 g/dL (29.9-35.2); Mean Corpuscular Hemoglobin 30.8 pg (25.9-34.0); Mean Corpuscular Volume 88.1 fL (80.0-94.0); Platelet Count 346 10^3/uL (150-450); Red Blood Count 4.96 10^6/uL (4.70-6.10); White Blood Count 11.1 10^3/uL (4.0-11.0)
[2025-04-17 08:33] LABS: Glucose Urine UA NEGATIVE (NEGATIVE)
[2025-04-17 08:42] LABS: Alanine Aminotransferase 39 U/L (16-63); Albumin Globulin Ratio 1.0; Albumin Level 4.0 g/dL (3.4-5.0); Alkaline Phosphatase 93 U/L (46-116); Anion Gap 14.9; Aspartate Amino Transferase 18 U/L (15-37); Blood Urea Nitrogen 12.0 mg/dL (7.0-18.0); Calcium 9.6 mg/dL (8.5-10.1); Carbon Dioxide 28.2 mmol/L (21.0-32.0); Chloride 98 mmol/L (98-107); Cholesterol 209 mg/dL (<=200); Estimated GFR (African America >60 (>=60 mL/min/1.73m^2); Estimated GFR (Non-African Ame >60 (>=60 mL/min/1.73m^2); Globulin 3.9 g/dL; Glucose 165 mg/dL (74-106); HDL Cholesterol 38 mg/dL (40-60); Potassium 4.1 mmol/L (3.5-5.1); Sodium 137 mmol/L (136-145); Total Protein 7.9 g/dL (6.4-8.2); Triglycerides 330 mg/dL (<=150); VLDL CHOLESTEROL 66.0 mg/dL
[2025-04-17 10:36] LABS: Microalbum Creatinine Ratio Ur 12.1 mg/g (0.0-29.9)
[2025-04-17 10:50] LABS: Iron 72.0 ug/dL (65.0-175.0); Percent Iron Saturation 25.9 %; Total Iron Binding Capacity 278.0 ug/dL (250.0-450.0)
[2025-04-17 15:33] LABS: Ferritin 229.0 ng/mL (26.0-388.0)
[2025-04-18 05:11] LABS: Transferrin 246 mg/dL (177-329)
== END 2025-04-17 07:21 | disposition home or self-care (01) ==
LOC: LAB 07:23
PROVIDERS: PCP Nurse Practitioner; Visit Provider Nurse Practitioner
DX: D50.8 Other iron deficiency anemias (principal); I10 Essential (primary) hypertension; E11.65 Type 2 diabetes mellitus with hyperglycemia; E78.2 Mixed hyperlipidemia; Z12.5 Encounter for screening for malignant neoplasm of prostate
CPT/HCPCS: 36415; 80053; 80061; 81003; 82043; 82570; 82728; 83540; 83550; 84466; 85025; G0103

== ENCOUNTER 2025-06-29 10:20 | Outpatient (OUT) | payer MEDICARE, SELFPAY ==
--- OUTSIDE RECORDS SUMMARY | 2025-06-29 10:30 | XMS_ITS | CCD ---
Author Organization [facility] Inform ion [facility] Care Team Providers Care Black And White 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 Name Role Phone Nahid Gu Unavailable MD Carmen Wheatley Primary Care Provider MD Milton Valentine II Attending Provider Unavailable Primary Care Provider UnavailShaik Nichols MDh Primary Care Provider Francis Barr Unavailable Milton Valentine II Unavailable [phone] [facility] Kristina Mak Emergency Provider MD Masood Prater Primary Care Provider ARCELIA JUAREZ Admitting Unavailable FAWWAD, MEYER H Primary Care Unavailable JOE .ARCELIA Attending Unavailable DR [place] DURAN V Consulting Unavailable SLOAN .DORIS Consulting UnavailDR ERICK Ramirez Admitting Unavailable DR ERICK SALGADO Attending Unavailable JOSEPH ASHRAF Consulting Unavailable FAWWAD, MEYER H Primary Care Unavailable DIAB ., HASMUKH Admitting Unavailable DIAB ., HASMUKH Attending Unavailable DIAB ., HASMUKH Consulting Unavailable FAWWAD, MEYER H Primary Care Unavailable FAWWAD, MEYER H Attending Unavailable FAWWAD, MEYER H Consulting Unavailable FAWWAD, MEYER H Primary Care Unavailable FAWWAD, MEYER H Admitting Unavailable FAWWAD, MEYER H Attending Unavailable DR [place] DURAN [...] H Admitting Unavailable TANKHA, KB Referring Unavailable [facility] Primary Care Unavailable OLAYINKA BOYD Referring Unavailable TANKHA, KB Attending Unavailable FAWILD, [facility] Primary Care Unavailable SANTANA HARRIS Referring Unavailable FAWWAD, [facility] Primary Care Unavailable SANTANA HARRIS Referring Unavailable FAWILD, [facility] Primary Care Unavailable SANTANA HARRIS Attending Unavailable OLAYINKA BOYD Attending Unavailable TANKHA, KB Attending Unavailable [facility] Primary Care Unavailable [place] CASTELLANOS Attending Unavailable TANKHA, KB Referring Unavailable FAWILD, [facility] Primary Care Unavailable TANKHA, KB Admitting Unavailable TANKHA, KB Attending Unavailable [facility], [facility] Primary Care Unavailable MD Moi [facility] Primary Care Provider Jazmin [facility] Tracy Attending Provider [phone] Terri Abrams MD Attending Unavailable Jazmin [facility] Tracy Referring Provider Carmen [place] Unavailable MD Moi [facility] Primary Care Provider Jazmin [facility] Tracy Attending Provider [facility] Tracy Referring Provider STEVO Wuicia Attending Provider Kaminiva tee Delgado [facility] Kristina Mak Emergency Provider Moi GREEN, [facility] Care Provider [phone] Windnagel, Tracy Admitting Unavailable Windnagel, Tracy Attending Unavailable Windnapeter, Tracy Referring [facility] Unavailable Fawwad, [facility] Primary Care Unavailable Windnagel, Tracy Admitting Unavailable Windnagel, Tracy Attending Unavailable [facility] Care Unavailable Bullimore, Kristina E Admitting Unavailable Bullimore, Kristina E Attending Unavailable [facility] Care Unavailable Bullimore, Kristina E Admitting Unavailable Bullimore, Kristina E Attending Unavailable [facility] Primary Care Unavailable Windnagel, Tracy Admitting Unavailable Windnagel, Tracy Attending Unavailable Moi GREEN [facility] Primary Care Provider [phone] ANANT CORTEZ Attending Unavailable DONAL, DANNI Referring Unavailable DONAL, DANNI Attending Unavailable OVITT, DUNIA Attending Unavailable BHAVESH JAMES Attending Unavailable DONAL, DANNI Referring Unavailable OVITT, DUNIA Referring Unavailable DONAL, DANNI Referring Unavailable J Luis Cárdenas MD Primary Care Provider [phone] Fabi ASSISTANT SPEECH LANGUAGE PATHOLOGIST, Denis Unavailable [phone] J Luis Cárdenas MD Primary Care Provider Unallocated MD, Noms Provider Primary Care Provi sony J Luis Cárdenas MD Primary Care Provider [phone] NONE, XXXX Primary Care Physician Unavailab caroline DUNLAP, MS. DENIS ECHEVERRIA Primary Care P hysician Fabi ASSISTANT SPEECH LANGUAGE PATHOLOGIST, Denis Unavailable [phone] DENIS DUNLAP Attending UnavailJAMI Saunders Attending Unavailable SHAIKH PRATER Attending Unavailable DENIS DUNLAP Attending UnavailANNIE Mcrae Attending Unavailable JAMI SMALL Attending Unavailable DENIS DUNLAP Attending UnavailDENIS Sebastian Attending UnavailDENIS Sebastian Attending UnavailBright De La Garza Referring Unavailable Bright Mejia Attending Unavailable Bright Mejia Admitting Unavailable Bright Mejia Referring Unavailable Bright Mejia Attending Unavailable Bright Mejia Admitting Unavailable [facility] Unavailabl e Catalina Meier Attending Unavailable [facility] Unavailabl e Bright Mejia Referring Unavailable Bright Mejia Attending Unavailable [facility] Unavailabl e Allergies Allergy Classification Reported Allergen(s) Allergy Type Date of Onset Reaction(s) Facility (20 sources) Ibuprofen; Translations: [IBUPROFEN] Drug Allergy 3 Anaphylaxis [facility] Other (20 sources) NSAIDs; Translations: [NSAIDs] Propensity to adverse reactions 3 Anaphylaxis, Swelling, Shortness of breath, Anaphylaxis (disorder) [facility] (18 sources) Non-steroidal anti-inflammato ry agent; Translations: [NSAIDS (NON-STEROIDAL ANTI-INFLAMMATO RY DRUG)] Drug Allergy 3 Anaphylaxis, Other: See Comments, Shortness of Breath, Swelling [facility] (5 sources) NSAIDS (Non-Steroidal Anti-Inflamma; Translations: [NSAIDS (Non-Steroidal Anti-Inflamma] Allergy to substance 3 Anaphylaxis [facility] (1 source) NSAIDs Drug allergy (disorder) [facility] Repository (20 sources) Aluminum aspirin; Translations: [ASPIRIN] Drug Allergy 3 Unknown [facility] Healthcare (20 sources) Naproxen; Translations: [NAPROXEN] Drug Allergy 3 Anaphylaxis [facility] (20 sources) oxaprozin; Translations: [OXAPROZIN] Drug Allergy 3 Unknown [facility] (20 sources) traMADol; Translations: [TRAMADOL] Drug Allergy 3 [facility] (1 source) Ibuprofen Drug Allergy 3 [facility] Repository (1 source) ALLERGIES NOT ON FILE; Translations: [ALLERGIES NOT ON FILE] Propensity to adverse reactions (disorder) [facility] Repository Medications Current Medications Medication Drug Class(es) [...] by mouth Daily 90 tablet 1 01/26/2025 Active atorvastatin 20 mg oral tablet (3 sources) HMG-CoA Reductase Inhibitor Start: 04-22-2025 End: 07-21-2025 take 1 tablet by mouth once daily atorvastatin (Lipitor) 20 MG tablet Indications: Mixed hyperlipidemia Take 1 tablet (20 mg) by mouth Daily 90 tablet 04/22/2025 07/21/2025 Active baclofen 20 mg oral tablet (20 [...] (20 sources) Corticosteroid, beta2-Adrenergic Agonist Start: 01-29-20 24 End: 07-05-20 take 2 puff(s) by inhalation in the morning budesonide-formotero l (Symbicort) 160-4.5 MCG/ACT inhaler Indications: Moderate persistent asthma without complication (HCC) Inhale 2 puffs in the morning and 2 puffs before bedtime. Rinse mouth after use. 3 each 1 04/06/2025 07/05/2025 Active Continuous Glucose Dandy Operator (Dexcom G7 Dandy Operator) device (7 sources) Start: 08-26-20 End: 09-25-20 Continuous Glucose Dandy Operator (Dexcom G7 Dandy Operator) device Indications: Type 2 diabetes mellitus without complication, without long-term current use of insulin (CMS/HCC) 1 each continuously 1 each 08/26/2024 09/25/2024 Active Continuous Glucose Sensor (Dexcom G7 Sensor) misc (20 sources) Start: 03-19-20 End: 04-18-20 Continuous Glucose Sensor (Dexcom G7 Sensor) mis Indications: Type 2 diabetes mellitus without complication, without long-term current use of insulin ([facility]) 1 each by Other route Daily APPLY 1 SENSOR CONTINUOUSLY DIRECTED 3 each 03/19/2025 04/18/2025 Active Start: 01-27-2025 End: 03-19-2025 Continuous Glucose Sensor (D excom G7 Sensor) misc APPLY 1 SENSOR CONTINUOUSLY DIRECTED 01/27/2025 03/19/2025 Discontinued (Reorder) Start: 01-27-2025 Continuous Glu cose Sensor (Dexcom G7 Sensor) [facility] APPLY 1 SENSOR CONTINUOUSLY DIRECTED 01/27/2025 Active Start: 09-22-2024 End: 09-22-2024 Continuous Glucose Sensor (D excom G7 Sensor) mis Indications: Type 2 diabetes mellitus without complication, without long-term current use of insulin (CMS/HCC) 1 each continuously 3 each 3 09/22/2024 09/22/2024 Discontinued (Reorder) Start: 09-22-2024 End: 10-20-2024 Continuous Glucose Sensor (D excom G7 Sensor) mis Indications: Type 2 diabetes mellitus [...] Continuous Glu cose Sensor (Dexcom G7 Sensor) [facility] [...] Start: 09-26-2022 take 1 capsule by mo [facility] once daily DULoxetine (CYMBALTA) 60 mg capsule [...] release oral tablet (20 sources) Sulfonylurea Start: End: take 1 tablet by mouth once [...] without long-term current use of insulin (HCC) Take 1 tablet (1,000 mg) by mouth in the morning and 1 tablet (1,000 mg) in the evening. Take with meals. 180 tablet 1 02/11/2025 Active Start: 01-27-2023 Metformin Acti ve MG [...] (20 sources) Opioid Agonist Start: 07-15-2024 End: 06-18-2025 take 2 tablets by mouth every eight hours for pain oxyCODONE (Roxicodone) 5 MG immediate release tablet Indications: Chronic pain syndrome Take 2 tablets (10 mg) by mouth every 8 (eight) hours if needed for severe pain 180 tablet 05/19/2025 06/18/2025 Active Start: 05-05-2024 End: 06-26-2024 take 2 [...] oral capsule (20 sources) Start: 04-21-2024 End: 06-25-2025 take 1 capsule by mouth in the [...] (200 mg) before bedtime. 90 capsule 2 05/26/2025 06/25/2025 Active Start: 08-23-2023 take 1 capsule by [...] Active Tirzepatide (Mounjaro) 7.5 MG/0.5ML solution auto-injector (8 sources) Start: 04-15-2025 End: 05-13-2025 Tirzepatide (Mounjaro) [...] Drug Class(es) Dates Sig (Normalized) Sig (Original) [id number] 200 actuat albuterol 0.09 mg/actuat metered dose [...] Glucose Sensor (FreeStyle Liv 2 Sensor) misc (20 sources) Start: End: Continuous Glucose Sensor (FreeStyle Liv 2 Sensor) misc Indications: Type 2 diabetes mellitus without complication, with long-term current use of insulin (CMS/HCC) , Uncontrolled type 2 diabetes mellitus with hyperglycemia (CMS/HCC) Inject 1 each under the skin continuously 1 each 11 08/05/2024 08/26/2024 Discontinued (Other) Start: 08-05-2024 End: [...] continuously 1 each 11 06/26/2024 06/26/2025 Active Start: 06-19-2024 End: 06-26-2024 [...] 2 diabetes mellitus with hyperglycemia (CMS/HCC) Inject 30 Units under the skin at [...] of 40.0 to 44.9 in adult (CMS/HCC) Take 1 tablet (37.5 mg) by mouth [...] complication, with long-term current use of insulin ([facility]) , Uncontrolled type 2 diabetes mellitus with hyperglycemia ([facility]) Inject 5 mg under the skin 1 [...] Onset: 10-30-2022 Chronic Other aftercare (1 source) [facility] (current) use of oral hypoglycemic drugs; Translations: [SENIOR CARE USE ORAL HYPOGLYCEMIC DX] Onset: 03-05-2023 Episodic [...] conditions (not mental disorders or infectious disease) (20 sources) Encounter for screening for lipoid disorders; [...] (1 source) APPOINTMENT CANCELLED Unclassified (1 source) MEAT PUMPER INJECT NONINSULN ANTIDIAB; Translations: [MEAT PUMPER INJECT NONINSULN ANTIDIAB] Onset: 03-05-2023 Unclassified (3 [...] Asthenia; Translations: [Weakness] 06-11-2024 Episodic Mood disorders (9 sources) Mood disorders Onset: 04-06-2025 04-06-2025 Other aftercare (1 source) Other vermin exterminator (current) drug therapy; Translations: [OTH MEAT PUMPER CURRENT DRUG THERAPY] Onset: 10-24-2022 Episodic Other aftercare (20 sources) Long-term current use of drug therapy; Translations: [Encounter for therapeutic drug level monitoring] Onset: 01-22-2024 01-22-2024 Episodic Other aftercare (10 sources) Patient encounter status; Translations: [Encounter for therapeutic drug level monitoring] Onset: 01-22-2024 01-22-2024 Episodic Other connective tissue disease (2 sources) Spasm; Translations: [Other muscle spasm] 06-11-2024 Episodic Other lower respiratory disease (20 sources) Cough; Translations: [Acute cough] Onset: 01-26-2025 [...] Test Name Value Interpretation Reference Range Facility CT Spine Cervical w/o Contra ston 06-03-2025 CT Spine Cervical w/o Contrast Exam Date/Time: 06/02/2025 14:20 EDT Reason for Exam: M47.22 Report IMPRESSION: No fracture. No malalignment. Loss cervical lordosis may BE secondary to muscle spasm, versus patient positioning. CT cervical spine without intravenous contrast medium. HISTORY: Neck pain. History displaced disc. M47.22 TECHNICAL FACTORS: CT cervical spine obtained and formatted as 2.5 mm contiguous axial images from skull base to the level of. Sagittal and coronal reconstructions were obtained during postprocessing. No contrast medium was utilized. COMPARISON: MRI cervical spine 05/16/2023,[facility]. FINDINGS: Cervical vertebral bodies are normal in height and alignment. Loss cervical lordosis. Atlantooccipital articulation maintained. Atlantoaxial interval preserved. Neural foramina intact. Disc spaces preserved. No fractures, dislocations, bone lesions. Limited imaging lung apices without anomaly. Carotid arteries and soft tissues are without anomaly. All CT scans at this facility use dose modulation, iterative reconstruction, and/or weight based dosing when appropriate to reduce radiation dose to as low as reasonably achievable. Report Ordering Provider: Bright Mejia FINAL REPORT Dictated: 06/03/2025 12:10 pm Enoch Carroll MD Signed (Electronic Signature): 06/03/2025 12:10 pm Signed by: Enoch Carroll MD Transcribed by: LONDON Technologist: NICK La [facility] MRI Spine Cervical w/o Contr olivia 06-03-2025 MRI Spine Cervical w/o Contrast Exam Date/Time: 06/02/2025 14:59 EDT Reason for Exam: M47.22 Report IMPRESSION: NO SIGNIFICANT CHANGE FROM 05/16/2023 IDENTIFIED, DESCRIBED IN DETAIL. CLINICAL HISTORY: M47.22. Technologist Comments: pt states is having neck pain, states he has displaced disc. COMPARISON: Cervical spine CT and radiographs from earlier 06/02/2025, and outside cervical spine MRI 05/16/2023. TECHNIQUE: Multiplanar MR imaging of the cervical spine was performed. FINDINGS: The spine is visualized from the craniovertebral junction through the T1-2 level on the diagnostic sagittal sequences. Alignment: Mild reversal of the normal cervical lordosis with approximately 2 mm retrolisthesis of C5 over C6. Bone marrow signal/fracture: Within normal limits, not significantly changed from 05/16/2023. Spinal cord: The visualized spinal cord is normal in signal and caliber. Paraspinal soft tissues: The visualized soft tissues are unremarkable. Craniovertebral junction: Visualized posterior fossa structures and craniovertebral junction are unremarkable. C2-3: No significant disc space narrowing, discrete disc protrusion, central spinal stenosis or neural foraminal narrowing. C3-4: Very small broad-based disc protrusion, substantially similar to 05/16/2023. No significant disc space narrowing, discrete disc protrusion, central spinal stenosis or neural foraminal narrowing. C4-5: Minimal diffuse disc bulging with a central annular tear inferiorly, substantially similar to 05/16/2023. No significant disc space narrowing, discrete disc protrusion, central spinal stenosis or neural foraminal narrowing. C5-6: Very small broad-based disc protrusion, substantially similar to 05/16/2023. No significant disc space narrowing, discrete disc protrusion, central spinal stenosis or neural foraminal narrowing. C6-7: No significant disc space narrowing, discrete disc protrusion, central spinal stenosis or neural foraminal narrowing. Report C7-T1: No significant disc space narrowing, discrete disc protrusion, central spinal stenosis or neural foraminal narrowing. T1-T2: No significant disc space narrowing, discrete disc protrusion, central spinal stenosis or neural foraminal narrowing. Ordering Provider: Bright Mejia FINAL REPORT Dictated: 06/03/2025 4:46 pm Matt Lock MD Signed (Electronic Signature): 06/03/2025 4:46 pm Signed by: Matt Lock MD Transcribed by: LONDON Technologist: LAKESHIA [facility] XR Spine Cervical 6 or More Viewson 06-03-2025 XR Spine Cervical 6 or More Views Exam Date/Time: 06/02/2025 14:35 EDT Reason for Exam: Neck Pain Report IMPRESSION: NO FRACTURE. LOSS CERVICAL LORDOSIS MAY BE SECONDARY TO PATIENT POSITIONING VERSUS MUSCLE SPASM. CLINICAL HISTORY: Neck Pain COMPARISON: NONE. FINDINGS: Loss cervical lordosis. Cervical vertebral bodies normal in height and alignment on flexion, extension, and neutral positioning. No fracture, dislocation, bone lesion. No prevertebral soft tissue swelling. Technical Comments: genny Vera in mGy = na DAP = na Ordering Provider: Bright Mejia FINAL REPORT Dictated: 06/03/2025 3:02 pm Enoch Carroll MD Signed (Electronic Signature): 06/03/2025 3:02 pm Signed by: Enoch Carroll MD Transcribed by: LONDON Technologist: [facility] ALL CBC WITH AUTO DIFFon BASOPHILS ABSOLUTE AUTO 0.1 [facility] Basophils/100 WBC (Bld) 0.5 % 0.2 - 2.0 % [facility] Eosinophils/100 WBC (Bld) 0.6 % Low 0.9 - 7.0 % [facility] Erythrocyte distribution width (RBC) [Ratio] 12.5 % 11.0 - 15.0 % [facility] Hematocrit (Bld) [Volume fraction] 43.7 % 42.0 - 54.0 % [facility] Hemoglobin (Bld) [Mass/Vol] 15.3 g/dL 14.0 - 18.0 g/dL [facility] IMMATURE GRANULOCYTES ABS AUTO 0.05 High [facility] Immature granulocytes/100 WBC (Bld) 0.5 % 0.0 - 0.5 % [facility] Interpretation and review of laboratory results Abnormal [facility] LYMPHOCYTES ABSOLUTE AUTO 2 [facility] Lymphocytes/100 WBC (Bld) 17.7 % Low 20.5 - 60.0 % [facility] MCH (RBC) [Entitic mass] 30.8 pg 25.9 - 34.0 pg [facility] MCHC (RBC) [Mass/Vol] 35 g/dL 29.9 - 35.2 g/dL [facility] MCV (RBC) [Entitic vol] 88.1 fL 80.0 - 94.0 fL [facility] MONOCYTES ABSOLUTE AUTO 0.5 [facility] Monocytes/100 WBC (Bld) 4.8 % 1.7 - 12.0 % [facility] NEUTROPHILS ABSOLUTE AUTO 8.4 High [facility] Neutrophils/100 WBC (Bld) 75.9 % High 43.0 - 75.0 % [facility] Platelet mean volume (Bld) [Entitic vol] 10.6 fL 9.5 - 13.5 fL [facility] TBH EO # 0.1 [facility] PLT 346 [facility] RBC 4.96 [facility] WBC 11.1 High [facility] HbA1c (Bld) [Mass fraction]O rdered By: Gali Allred on 02-23-2025 Interpretation and review of laboratory results [facility] - Hematology and Cell countsOrdered By: Gali Allred on 02-23-2025 HbA1c (Bld) [Mass fraction] 9.7 % [facility] Nonvisit Note - PTon 025 Nonvisit Note - PT Nonvisit Note - PT Per the front end java developer, 9:45 9:45 pool cxl due to running fever & not feeling well. Normal [facility] Nonvisit Note - PTon 025 Nonvisit Note - PT Nonvisit Note - PT Per the front end java developer, 9:15 Pool cxl'd. No ride due to having family emergency. Normal [facility] MRI Spine Lumbar w/o Contras ton 10-23-2024 [...] LONDON Technologist: LAKESHIA Technical Comments None Normal [facility] XR Spine Lumbosacral Minimum 4 Viewson 10-23-2024 [...] mGy = . DAP = . Normal La [facility] CT Spine Lumbar w/o Contrast on 09-01-2024 [...] mild hypertrophic facet changes, which results in jivj-wq-mwzpvtfb neural foraminal narrowing. No central spinal stenosis or significant disc herniation. Visualized paraspinous soft tissues and bony pelvis: Minimal calcific atherosclerotic plaquing. Otherwise, noncontributory Report Ordering Provider: Arnel Serrano FINAL REPORT Dictated: 09/01/2024 2:29 pm Matt Lock MD Signed (Electronic Signature): 09/01/2024 2:29 pm Signed by: Matt Lock MD Transcribed by: LONDON Technologist: ELIAZAR Montiel [facility] CT Spine Thoracic w/o Contra stoaparna 09-01-2024 CT Spine Thoracic w/o Contrast Exam [...] MD Transcribed by: LONDON Technologist: ELIAZAR Montiel [facility] ED Clinical Summaryon 2023 ED Clinical Summary ED Clinical Summary [place] [id number] ED Clinical Summary Person Information Name: BHAVESH CÁRDENAS [facility] Age: 48 Years : 1975 Sex: Male Language: Chilean PCP: NONE, XXXX Marital Status: Visit Id: Visit Reason: Back pain; SEVERE [...] 09/01/2024 15:03:34 09/01/2024 15:03:34 09/01/2024 15:03:34 ADDRESS: [address] [place] [id number] PHYS DOC NOTES: MEDICAL INFORMATION: Prescriptions Given: PATIENT EDUCATION INFORMATION: Instructions: Chronic Back Pain; Acute Back Pain, Adult Follow up: With: Address: When: Bright Mejia [address], [address] [place] [phone] Business (1) In 3 days 09/04/2024 Comments: Call Dr for diagnosis based follow up With: Address: When: Francis Barr [address], [address] [place] [address] Business (1) In 3 days 09/04/2024 Comments: Call Dr for diagnosis based follow up DIAGNOSIS: Acute back pain Normal [facility] ED Note-Physicianon 09-01-20 ED Note-Physician ED Note-Physician Basic Information No qualifying data available. Chief Complaint pt was seen sunday at [place] [facility] for pain. Pt presenting with pain in [...] 4 days ago when he drove to [facility]. Since then it has been getting progressively worse. Reports all the pain in his low back at this time. He went to [facility] on Sunday for this pain. He states [...] and Complexity of Problems Differential Diagnosis: [] [facility] Data External documents reviewed: [] My EKG [...] moving forward. Arnel Miller PA-C had a timn-ai-bmcq interaction with the patient. I personally performed [...] active prescri (more content not included)... Normal [facility] Comment on above: Result Comment: Elec tronically Signed By: Catalina Meier M.D.\.br\Date and Time Signed: 09/01/24 17:50 EST\.br\Electronically Co-Signed By: Zach KNIGHT, Arnel Herron.br\Date and Time Co-Signed: 09/01/24 17:20 EST ED Patient Summaryon 024 ED Patient Summary ED Patient Summary [place] [id number] Patient Discharge Instructions Person Information Name: BHAVESH CÁRDENAS Age: 48 Years Arrival Date: 09/01/2024 10:09:43 Discharge Diagnosis: Acute back pain Primary Care Physician: NONE, XXXX Provider Information Primary Provider: Catalina Meier M.D. Advanced Content Creation Manager:None The exam and treatment you received in the Emergency Department were for an urgent problem and are not intended as complete care. It is important that you follow up with a doctor, nurse practitioner, or physician???s orthodontic technician assistant for ongoing care. If your symptoms [...] Follow-up Instructions: With: Address: When: Bright Mejia [address], [address] [place] [phone] [facility] (1) In 3 days 09/04/2024 Comments: Call Dr for diagnosis based follow up With: Address: When: Francis Barr [address], [address] [place] [address] [facility] (1) In 3 days 09/04/2024 [...] opioids can be used to help relieve eshlcpzx-sj-bfpiov pain and are often prescribed following a [...] and D (more content not included)... Normal [facility] [facility] 2023 Interpretation and review of laboratory results Abnormal [facility] TBH IRON 55 ug/dL Low 65.0 - 175.0 ug/dL [facility] TBH PERCENT IRON SATURATION 20.4 % [facility] TB TOTAL IRON BINDING CAPACITY 269 ug/dL 250.0 - 450.0 ug/dL [facility] CBC WITH AUTO DIFFon BASOPHILS ABSOLUTE AUTO 0.1 [facility] Basophils/100 WBC (Bld) 0.6 % 0.2 - 2.0 % [facility] Eosinophils/100 WBC (Bld) 2.2 % 0.9 - 7.0 % [facility] Erythrocyte distribution width (RBC) [Ratio] 13.2 % 11.0 - 15.0 % [facility] Hematocrit (Bld) [Volume fraction] 41 % Low 42.0 - 54.0 % [facility] Hemoglobin (Bld) [Mass/Vol] 14.2 g/dL 14.0 - 18.0 g/dL [facility] IMMATURE GRANULOCYTES ABS AUTO 0.05 High [facility] Immature granulocytes/100 WBC (Bld) 0.5 % 0.0 - 0.5 % [facility] Interpretation and review of laboratory results Abnormal [facility] LYMPHOCYTES ABSOLUTE AUTO 2.7 [facility] Lymphocytes/100 WBC (Bld) 24.1 % 20.5 - 60.0 % [facility] MCH (RBC) [Entitic mass] 30.6 pg 25.9 - 34.0 pg [facility] MCHC (RBC) [Mass/Vol] 34.6 g/dL 29.9 - 35.2 g/dL [facility] MCV (RBC) [Entitic vol] 88.4 fL 80.0 - 94.0 fL [facility] MONOCYTES ABSOLUTE AUTO 0.8 [facility] Monocytes/100 WBC (Bld) 7 % 1.7 - 12.0 % [facility] NEUTROPHILS ABSOLUTE AUTO 7.2 High [facility] Neutrophils/100 WBC (Bld) 65.6 % 43.0 - 75.0 % [facility] Platelet mean volume (Bld) [Entitic vol] 10.1 fL 9.5 - 13.5 fL [facility] TBH EO # 0.2 [facility] PLT 336 [facility] TB RBC 4.64 Low [facility] WBC 11 [facility] CMP (CMP) (FOR REMOTE FH C USE)on 08-19-2024 Albumin [Mass/Vol] 3.7 g/dL 3.4 - 5.0 g/dL [facility] ALBUMIN GLOBULIN RATIO 1.1 [facility] ALP [Catalytic activity/Vol] 99 U/L 46 - 116 U/L [facility] ALT [Catalytic activity/Vol] 29 U/L 16 - 63 U/L [facility] Anion gap [Moles/Vol] 16.2 mmol/L [facility] AST [Catalytic activity/Vol] 15 U/L 15 - 37 U/L [facility] Bilirubin [Mass/Vol] 0.3 mg/dL 0.2 - 1 .0 mg/dL [facility] Calcium [Mass/Vol] 9.4 mg/dL 8.5 - 10. 1 mg/dL [facility] Chloride [Moles/Vol] 101 mmol/L 98 - 10 7 mmol/L [facility] CO2 [Moles/Vol] 26 mmol/L 21.0 - 32.0 mmol/L [facility] Creatinine [Mass/Vol] 0.99 mg/dL 0.70 - 1.30 mg/dL [facility] GFR/1.73 sq M.predicted CKD-EPI (S/P/Bld) [Vol rate/Area] >60 >=60 mL/min/1.73m 2 [facility] Globulin (S) [Mass/Vol] 3.5 g/dL [facility] Glucose [Mass/Vol] 149 mg/dL High 74 - 106 mg/dL [facility] Interpretation and review of laboratory results Abnormal [facility] Potassium [Moles/Vol] 4.2 mmol/L 3.5 - 5.1 mmol/L [facility] Protein [Mass/Vol] 7.2 g/dL 6.4 - 8.2 g/dL [facility] Sodium [Moles/Vol] 139 mmol/L 136 - 145 mmol/L [facility] EGFR-NON AF TONGAN >60 >=60 mL/min/1.73m 2 [facility] Urea nitrogen [Mass/Vol] 8 mg/dL 7.0 - 18.0 mg/dL [facility] Urea nitrogen/Creatinine [Mass ratio] 8.1 mg/mg [facility] MLR HEMOGLOBIN A1Con 024 Glucose [Mass/Vol] 174 mg/dL [facility] HbA1c (Bld) [Mass fraction] 7.7 % High 4.5 - 6.2 % [facility] Comment on above: ADA RECOMMENDED LIMI T 4.0 - 6.0 ADA THERAPEUTIC TARGET < 7.0 ACTION SUGGESTED > 7.0 Interpretation and review of laboratory results Abnormal [facility] MICROALB CREAT RATIO RAN DOMon 06-27-2024 CREATININE URINE RANDOM 212.32 mg/dL 20.00 - 300.00 mg/dL [facility] MICROALBUM CREATININE RATIO UR 14.6 mg/g 0.0 - 29.9 mg/g [facility] Comment on above: NO MICROALBUMINURIA 0-29 MG/G CLINICAL MICROALBUMINURIA 30-300 MG/G MACROALBUMINURIA >300 MG/G MICROALBUMIN URINE RANDOM 3.1 mg/dL NINF - 30.0 mg/dL [facility] ALL CBC WITH AUTO DIFFon BASOPHILS ABSOLUTE AUTO 0.1 [facility] Basophils/100 WBC (Bld) 0.7 % 0.2 - 2.0 % [facility] Eosinophils/100 WBC (Bld) 2.4 % 0.9 - 7.0 % [facility] Erythrocyte distribution width (RBC) [Ratio] 12.4 % 11.0 - 15.0 % [facility] Hematocrit (Bld) [Volume fraction] 41.4 % Low 42.0 - 54.0 % [facility] Hemoglobin (Bld) [Mass/Vol] 14.6 g/dL 14.0 - 18.0 g/dL [facility] IMMATURE GRANULOCYTES ABS AUTO 0.10 High [facility] Immature granulocytes/100 WBC (Bld) 0.9 % High 0.0 - 0.5 % [facility] Interpretation and review of laboratory results Abnormal [facility] LYMPHOCYTES ABSOLUTE AUTO 2.6 [facility] Lymphocytes/100 WBC (Bld) 24.5 % 20.5 - 60.0 % [facility] MCH (RBC) [Entitic mass] 30.6 pg 25.9 - 34.0 pg [facility] MCHC (RBC) [Mass/Vol] 35.3 g/dL High 29.9 - 35.2 g/dL [facility] MCV (RBC) [Entitic vol] 86.8 fL 80.0 - 94.0 fL [facility] MONOCYTES ABSOLUTE AUTO 0.7 [facility] Monocytes/100 WBC (Bld) 6.6 % 1.7 - [...] [facility] Orders Onlyon 05-26-2024 Orders Only [id number] Bhavesh Cárdenas 1975 M Date Provider Department Center 05/26/2024 752-PHYLLIS FORMAN PAIN [facility] Family History Problem Relation Age of Onset Multiple sclerosis Father Prostate cancer Father Family Status - Relation Status Age at Father Normal [facility] Orders Onlyon 05-22-2024 Orders Only [id number] Bhavesh Cárdenas 1975 M Date Provider Department Center 05/22/2024 1800-DEEPIKA BRIONES MP PROC [facility] Family History Problem Relation Age of Onset Multiple sclerosis Father Prostate cancer Father Family Status - Relation Status Age at Father Normal [facility] Office Visiton 04-16-2024 Follow-up visit [id number] Bhavesh Cárdenas 1975 M Date Provider Department Center 04/16/2024 274-ANANT CORTEZ MP PAIN [facility] Family History Problem Relation Age of Onset Multiple sclerosis Father Prostate cancer Father Family Status - Relation Status Age at Father Level of Service:18524 [place] OFFICE/OUTPATIENT ESTABLISHED MOD MDM 30 MIN Reason for Visit and Comments: Pain [136] - Chief complaint - pain from the neck all the way to the lower back that radiates through the groin area and down the legs [facility] Procedure Visiton 03-05-2024 Procedure Visit [id number] Bhavesh Cárdenas 1975 M Date Provider Department Center 03/05/2024 407-BHAVESH JAMES [facility] PSYCH Eloise Heal Family History Problem Relation Age of Onset Multiple sclerosis Father Prostate cancer Father Family Status - Relation Status Age at Father Level of Service:30455 [place] OFFICE/OP CONSLTJ NEW/EST PT HIGH MDM 55 MINUTES Reason for Visit and Comments: Psychiatric Evaluation [441924] [facility] Office Visiton 02-19-2024 Follow-up visit [id number] Bhavesh Cárdenas 1975 M Date Provider Department Center 02/19/2024 Nestor-DANNI MANSFIELD [facility] SURG Second Fl Family History Problem Relation Age of Onset Multiple sclerosis Father Prostate cancer Father Family Status - Relation Status Age at Father Level of Service:83086 [place] OFFICE/OP CONSLTJ NEW/EST PT MOD MDM 40 MINUTES Reason for Visit and Comments: Follow-up [274730] - Pt is here for an office visit to discuss SCS. [facility] 36on 12-03-2023 36 Spoke with [...] I did offer to refer him to [facility] for a second opinion for pain management and to discuss possibility of spinal cord stimulation. He will consider his options and will let us know if he would like a referral. [facility] 36on 11-29-2023 36 [facility] and would like to know if MRI completed at [facility] has been rec'd and reviewed. He can be reached at [phone] Thank you [facility] Telephoneon 11-29-2023 Telephone [id number] Bhavesh Cárdenas 1975 M Date Provider Department Center 11/29/2023 148-OVRAGHAV, [facility] SURG Second Fl Family History Problem Relation Age of Onset Multiple sclerosis Father Prostate cancer Father Family Status - Relation Status Age at Father Normal [facility] Consulton 11-21-2023 Consult [id number] Bhavesh Cárdenas 1975 M Date Provider Department Center 11/21/2023 148-OVRAGHAV, [facility] SURG Second Fl Family History Problem Relation Age of Onset Multiple sclerosis Father Prostate cancer Father Family Status - Relation Status Age at Father Level of Service:47678 [place] OFFICE/OUTPATIENT NEW HIGH MDM 60 MINUTES Reason for Visit and Comments: Consult [484] - Bhavesh is here today for a consult for Lumbar spondylosis. 2nd opinion. Imaging requested from [facility]. Normal [facility] Automated erythrocytes count in urine sediment (number/area)Ordered By: Kristina Delgado on 08-24-2023 RBC Auto (Urine sed) [#/Area] None seen [HPF] 0-4 [facility] Automated leukocytes count i n urine sediment (number/area)Ordered By: Kristina Delgado on 08-24-2023 WBC Auto (Urine sed) [#/Area] None seen [HPF] 0-4 [facility] Bilirubin Test strip Ql (U)O rdered By: Kristina Delgado on 08-24-2023 Bilirubin Ql (U) Negative Negative [facility] CT lumbar spine wo conon CT lumbar spine wo con [facility] [address] CT Scan Report Signed Patient: Bhavesh Cárdenas MR#: [id number] : 1975 Acct:[id number] Age/Sex: 47 / M ADM Date: 08/24/23 Loc: ER Room: Type: [facility] ER Attending Dr: Copies to: DU [...] Polina Cabrera M.D.08/24/2023 3:01 PM Dictation Location: [place] [address] Transcribed By: [facility] 08/24/23 1501 Dictated By: Polina Cabrera MD 08/24/23 5423 Signed By: 08/24/23 1501 Normal [facility] Color Auto (U)Ordered By: Ly Delgado on 08-24-2023 Color (U) Yellow Yellow [facility] Dipstick and Microscopicon 1 10-24-2022 Appearance (U) Cloudy Critically abnormal Clear [facility] Comment on above: Order Comment: Name Collection Type:: Clean-Voided Midstream Performed By: #### A DDONUAPLUS #### [facility] [address] [place] [address] Bacteria,Urine None Seen Normal None Seen [facility] Comment on above: Order Comment: Name Collection Type:: Clean-Voided Midstream Performed By: #### A DDONUAPLUS #### [facility] [address] [place] [address] [place] Bilirubin,Urine Negative Normal Negative [facility] Comment on above: Order Comment: Name Collection Type:: Clean-Voided Midstream Performed By: #### A DDONUAPLUS #### [address] Color (U) Yellow Normal Yellow [facility] Comment on above: Order Comment: Name Collection Type:: Clean-Voided Midstream Performed By: #### A DDONUAPLUS #### [place] [address] [place] Glucose Ql (U) 100 mg/dL High Normal [facility] Comment on above: Order Comment: Name Collection Type:: Clean-Voided Midstream Performed By: #### A DDONUAPLUS #### [place] [address] [place] Hyaline Casts,Urine None Seen Normal 0-8 [facility] Comment on above: Order Comment: Name Collection Type:: Clean-Voided Midstream Result Comment: PERF ORMED BY: [place] [address] PATHOLOGIST SOLID PROPELLANT PROCESSOR COLUMBA CHRISTY M.D. Performed By: #### A DDONUAPLUS #### [facility] [address] [place] [address] [place] Ketones Ql (U) Negative Normal Negative [facility] Comment on above: Order Comment: Name Collection Type:: Clean-Voided Midstream Performed By: #### A DDONUAPLUS #### [facility] [address] [place] [address] [place] Leukocyte esterase Test strip Ql (U) Negative Normal Negative [facility] Comment on above: Order Comment: Name Collection Type:: Clean-Voided Midstream Performed By: #### A DDONUAPLUS #### [address] Nitrite,Urine Negative Normal Negative [facility] Comment on above: Order Comment: Name Collection Type:: Clean-Voided Midstream Performed By: #### A DDONUAPLUS #### [address] Occult Blood,Urine Negative Normal Negative [facility] Comment on above: Order Comment: Name Collection Type:: Clean-Voided Midstream Result Comment: PERF ORMED BY: [place] [address] PATHOLOGIST SOLID PROPELLANT PROCESSOR COLUMBA CHRISTY M.D. Performed By: #### A DDONUAPLUS #### [address] pH (U) 6.0 [pH] Normal 5.0-9.0 [facility] Comment on above: Order Comment: Name Collection Type:: Clean-Voided Midstream Performed By: #### A DDONUAPLUS #### [address] Protein,Urine Negative Normal Negative [facility] Comment on above: Order Comment: Name Collection Type:: Clean-Voided Midstream Performed By: #### A DDONUAPLUS #### [address] RBC,Urine None Seen Normal 0-4 [facility] Comment on above: Order Comment: Name Collection Type:: Clean-Voided Midstream Performed By: #### A DDONUAPLUS #### [address] Specificy [place],Urine 1.013 Normal 1.001-1.030 [facility] Comment on above: Order Comment: Name Collection Type:: Clean-Voided Midstream Performed By: #### A DDONUAPLUS #### [address] [place] [address] [place] Squamous Epithelial Cell,Urine None Seen Normal 0-2 [facility] Comment on above: Order Comment: Name Collection Type:: Clean-Voided Midstream Performed By: #### A DDONUAPLUS #### [facility] [address] Urobilinogen,Urine Normal Normal Normal [facility] Comment on above: Order Comment: Name Collection Type:: Clean-Voided Midstream Performed By: #### A DDONUAPLUS #### [facility] [address] WBC,Urine None Seen Normal 0-4 [facility] Comment on above: Order Comment: Name Collection Type:: Clean-Voided Midstream Performed By: #### A DDONUAPLUS #### [facility] [address] [place] [address] Ketones Auto test strip (U) [Mass/Vol]Ordered By: Kristina Delgado on 08-24-2023 Ketones (U) [Mass/Vol] Negative Negative [facility] Laboratory - UrinalysisOrder ed By: Kristina Delgado on 08-24-2023 Hyaline casts LM Ql (Urine sed) None seen [LPF] 0-8 [facility] Nitrite Test strip Ql (U)Ord ered By: Kristina Delgado on 08-24-2023 Nitrite Ql (U) Negative Negative [facility] Protein Auto test strip (U) [Mass/Vol]Ordered By: Kristina Delgado on 08-24-2023 Protein (U) [Mass/Vol] Negative Negative [facility] Specific gravity Auto test s trip (U) [Rel density]Ordered By: Kristina Delgado on 08-24-2023 Specific gravity (U) [Rel density] 1.013 1.001-1.030 [facility] Squamous epithelial cells de tection in urine sediment by light microscopyOrdered By: Kristina Delgado on 08-24-2023 Epithelial cells.squamous LM Ql (Urine sed) None seen [HPF] 0-2 [facility] Urine bacteria detection by automated methodOrdered By: Kristina Delgado on 08-24-2023 Bacteria Auto Ql (U) None seen None Seen [facility] Urine clarity by refractomet ry automatedOrdered By: Kristina Delgado on 08-24-2023 Clarity Refractometry automated (U) Cloudy Clear [facility] Urine glucose measurement by automated test strip (mass/volume)Ordered By: Kristina Delgado on 08-24-2023 Glucose Auto test strip (U) [Mass/Vol] 100 mg/dL Normal [facility] Urine hemoglobin detection b y automated test stripOrdered By: Kristina Delgado on 08-24-2023 Hemoglobin Auto test strip Ql (U) Negative Negative [facility] Urine leukocyte esterase det ection by automated test stripOrdered By: Kristina Delgado on 08-24-2023 Leukocyte esterase Auto test strip Ql (U) Negative Negative [facility] Urobilinogen Auto test strip (U) [Mass/Vol]Ordered By: Kristina Delgado on 08-24-2023 Urobilinogen (U) [Mass/Vol] Normal mg/dL Normal [facility] pH Auto test strip (U)Ordere d By: Kristina Delgado on 08-24-2023 pH (U) 6.0 [pH] 5.0-9.0 [facility] MR lumbar spine wo conon MR lumbar spine wo con [facility] [place] [address] MRI Report Signed Patient: Bhavesh Cárdenas MR#: [id number] : 1975 Acct:[id number] Age/Sex: 47 / M ADM Date: 06/21/23 Loc: MR Room: Type: [facility] Attending Dr: Tracy Wu Adult ASSISTANT SPEECH LANGUAGE PATHOLOGIST-BC Copies to: KINJAL William Ordering Provider: KINJAL [...] Clayton Joe M.D.06/22/2023 1:14 PM Dictation Location: [place] [address] Transcribed By: [facility] 06/22/23 1314 Dictated By: Clayton Joe II, MD 06/22/23 1308 Signed By: 06/22/23 1314 [facility] MR thoracic spine wo conon 0 05-16-2023 MR thoracic spine wo con [facility] Main [place] [address] [place] [address] MRI Report Signed Patient: Bhavesh Cárdenas MR#: [id number] : 1975 Acct:[id number] Age/Sex: 47 / M ADM Date: 05/16/23 Loc: MR Room: Type: [facility] Attending Dr: Tracy Wu Adult ASSISTANT SPEECH LANGUAGE PATHOLOGIST-BC Copies to: KINJAL William Ordering Provider: KINJAL William Date of Service: 05/16/23 MR/MR cervical spine wo con: M47.896 ([id number]) MR/MR thoracic spine wo con: M47.896 CLINICAL [...] Polina Cabrera M.D.05/16/2023 9:00 PM Dictation Location: [place] [address] Transcribed By: WENDIE 05/16/232099 Dictated By: Polina Cabrera MD 05/16/232049 Signed By: 05/16/232099 [facility] Theodora 03-28-2023 CNPN Telephone (NEPREM) BHAVESH CÁRDENAS ([id number]) 1975 M Date Time Provider Department 03/28/23 KB LORENZO During your visit today, we recorded the following information about you: Lori Woody RN 03/28/2023 2:37 PM Signed Weight entered in [place] Allergies As of Date: 03/28/2023 Noted Allergy [...] Of Date: 03/28/2023 (None) Encounter Status:Closed by HÉCTORDESIREA on 03/28/23 [facility] CNPN Telephone (NEPREM) BHAVESH CÁRDENAS ([id number]) 1975 M Date Time Provider Department 03/27/23 [facility] PROVIDER KIESHA During your visit today, we recorded the following information about you: Lorna Héctor 03/27/2023 1:27 PM Signed Patient's weight check [...] Encounter Status:Closed by LORNA ANAYA on 03/27/23 [facility] 02-19-2023 CNPN Telephone (NEPREM) BHAVESH CÁRDENAS ([id number]) 1975 M Date Time Provider Department 02/19/23 [...] increase in pain, requests phone call at [phone]. Lori Woody RN 02/21/2023 3:57 PM Addendum [...] Fully Assessed Reason for Visit: Patient Question [5897] Prescriptions as of 02/21/2023 - traZODone (DESYREL) [...] by LORNA ANAYA on 02/19/23 [facility] Theodora 02-09-2023 [facility] Telephone (KIESHA) BHAVESH CÁRDENAS ([id number]) 1975 M Date Time Provider Department 02/09/23 [...] Fully Assessed Reason for Visit: Patient Question [0726] Order(s):methylPREDNI Solone (MEDROL, GUSTABO,) 4 mg Dose-PackUse [...] Status:Closed by LORNA ANAYA on 02/09/23 Normal [facility] XR lumbar spine min 4V*on XR lumbar spine min 4V* [facility] [place] [address] XRay Report Signed Patient: Bhavesh Cárdenas MR#: [id number] : 1975 Acct:[id number] Age/Sex: 47 / M ADM Date: 01/27/23 Loc: ER Room: Type: [facility] ER Attending Dr: Copies to: DU [...] Polina Cabrera M.D.01/27/2023 11:42 AM Dictation Location: [place] [address] Transcribed By: [facility] 01/27/23 1142 Dictated By: Polina Cabrera MD 01/27/23 1138 Signed By: 01/27/23 1142 [facility] HISTORY PHYSICALon HISTORY PHYSICAL HNO ID: [id number] Author: Kb Lorenzo DO Service: ? Author [...] January 24, 2023 TIME: 9:47 AM Normal [facility] NURSING PROGon 01-24-2023 NURSING PROG HNO ID: [id number] Author: Lenan Gandolf, RN Service: ? Author Type: Registered Nurse Type: Nursing Progress Note Filed: 01/29/2023 9:01 AM Note Text: Summary: Post-Procedure Call Post Procedure Follow Up Phone Call. No answer. The patient was instructed to call [phone] with the percentage of pain relief and what activities have improved. Blank Moya RN January 29, 2023 [facility] OPERATIVE NOon 01-24-2023 OPERATIVE NO HNO ID: [id number] Author: Kb Lorenzo DO Service: ? Author Type: Physician Type: Operative Report Filed: 01/24/2023 10:12 AM Note Text: LOG ID: [id number] Surgery/Procedure Date: 01/24/2023 Surgeon: Kb Lorenzo DO Needle Punch Machine Operator Helper: Washington Joya MD Procedure(s): Bilateral Sacroiliac Joint [...] January 24, 2023 TIME: 10:11 AM Normal [facility] NURSING PROGon 01-22-2023 NURSING PROG HNO ID: [id number] Author: Frank Marrufo RN Service: Pain Management [...] 2 hours before the appointment. 2. A delivery driver assistant must be present who can drive you home. If you are coming by medical transport, you must have a responsible person other than the transportation dispatch manager with you. 3. If you take any [...] or cannot make the appointment by calling [phone] (Option 2). Normal [facility] Theodora 01-11-2023 CNPN Telephone (NPRC21) BHAVESH CÁRDENAS ([id number]) 1975 M Date Time Provider Department 01/11/23 LORI WOODY [facility] During your visit today, we recorded the following information about you: Lori Woody RN 01/11/2023 8:29 AM Signed Phoned and spoke with Bhavesh Cárdenas to confirm appointment for spine procedure on 01/24/23 with the arrival time of 845 for 930 am appointment. Patient verbalized understanding of the following: -Provided education on spine procedure and answered questions related to spine injection procedure. -Edge Blacker is needed and for delivery driver assistant to wait in lobby on [address] until [...] anxiety. Patient verbalized understanding. Patient given number [phone], spine injections schedulers, if there is any [...] Status:Closed by LORI WOODY on 01/11/23 Normal [facility] CBC AUTO DIFFon 12-21-2022 BASO # 0.1 103/ul Normal 0.0-0.1 [facility] Comment on above: Performed By: #### C BC #### [facility] [address] [place] [address] Dr. Oscar Ocampo Basophils/100 WBC (Bld) 0.6 % Normal 0.2-2.0 [facility] Comment on above: Performed By: #### C BC #### [facility] [address] [place] [address] Dr. Oscar Ocampo EO # 0.2 103/ul Normal 0.0-0.7 [facility] Comment on above: Performed By: #### C BC #### [facility] [address] [place] [address] Dr. Oscar Ocampo Eosinophils/100 WBC (Bld) 1.7 % Normal 0.9-7.0 [facility] Comment on above: Performed By: #### C BC #### [facility] [address] [place] [address] Dr. Oscar Ocampo Erythrocyte distribution width (RBC) [Ratio] 12.2 % Normal 11.0-15.0 [facility] Comment on above: Performed By: #### C BC #### [facility] [address] [place] [address] Dr. Oscar Ocampo Hematocrit (Bld) [Volume fraction] 44.4 % Normal 42.0-54.0 [facility] Comment on above: Performed By: #### C BC #### [facility] [address] [place] [address] Dr. Oscar Ocampo Hemoglobin (Bld) [Mass/Vol] 14.9 g/dL Normal 14.0-18.0 [facility] Comment on above: Performed By: #### C BC #### [facility] [address] [place] [address] Dr. Oscar Ocampo IG # 0.03 10e3/ul Normal 0.00-0.03 [facility] Comment on above: Performed By: #### C BC #### [facility] [address] [place] [address] Dr. Oscar Ocampo IG % 0.3 % Normal 0.0-0.5 [facility] Comment on above: Performed By: #### C BC #### [facility] [address] [place] [address] Dr. Oscar Ocampo LYMPH # 2.9 103/ul Normal 1.2-3.8 [facility] Comment on above: Performed By: #### C BC #### [facility] [address] [place] [address] Dr. Oscar Ocampo Lymphocytes/100 WBC (Bld) 32.6 % Normal 20.5-60.0 [facility] Comment on above: Performed By: #### C BC #### [facility] [address] [place] [address] Dr. Oscar Ocampo MANUAL DIFF REQ NO Normal [facility] Comment on above: Performed By: #### C BC #### [facility] [address] [place] [address] Dr. Oscar Ocampo MCH (RBC) [Entitic mass] 30.0 pg Normal 25.9-34.0 [facility] Comment on above: Performed By: #### C BC #### [facility] [address] [place] [address] Dr. Oscar Ocampo MCHC (RBC) [Mass/Vol] 33.6 g/dL Normal 29.9-35.2 [facility] Comment on above: Performed By: #### C BC #### [facility] [address] [place] [address] Dr. Oscar Ocampo MCV (RBC) [Entitic vol] 89.3 fL Normal 80.0-94.0 [facility] Comment on above: Performed By: #### C BC #### [facility] [address] [place] [address] Dr. Oscar Ocampo MONO # 0.8 103/ul Normal 0.3-0.8 [facility] Comment on above: Performed By: #### C BC #### [facility] [address] [place] [address] Dr. Oscar Ocampo Monocytes/100 WBC (Bld) 8.7 % Normal 1.7-12.0 [facility] Comment on above: Performed By: #### C BC #### [facility] [address] [place] [address] Dr. Oscar Ocampo NEUT # 5.1 103/ul Normal 1.4-6.5 [facility] Comment on above: Performed By: #### C BC #### [facility] [address] [place] [address] Dr. Oscar Ocampo Neutrophils/100 WBC (Bld) 56.1 % Normal 43.0-75.0 [facility] Comment on above: Performed By: #### C BC #### [facility] [address] [place] [address] Dr. Oscar Ocampo Platelet mean volume (Bld) [Entitic vol] 10.5 fL Normal 9.5-13.5 [facility] Comment on above: Performed By: #### C BC #### [facility] [address] [place] [address] Dr. Oscar Ocampo PLT 311 103/ul Normal 150-450 [facility] Comment on above: Performed By: #### C BC #### [facility] [address] [place] [address] Dr. Oscar Ocampo RBC 4.97 106/ul Normal 4.70-6.10 [facility] Comment on above: Performed By: #### C BC #### [facility] [address] [place] [address] Dr. Oscar Ocampo WBC 9.0 103/ul Normal 4.0-11.0 [facility] Comment on above: Performed By: #### C BC #### [facility] [address] [place] [address] Dr. Oscar Ocampo GLYCOHEMOGLOBIN A1Con 2022 ADA RECOMMENDATION SEE BELOW Normal [facility] Comment on above: Result Comment: ADA RECOMMENDED LIMIT 4.0 - 6.0 ADA THERAPEUTIC TARGET < 7.0 ACTION SUGGESTED > 7.0 Performed By: #### A 1C #### [facility] [address] [address] [address] Oscar Ocampo Glucose [Mass/Vol] 289 mg/dL Normal [facility] Comment on above: Performed By: #### A 1C #### [facility] [address] [address] [address] Oscar Ocampo HbA1c (Bld) [Mass fraction] 11.7 % Critically high 4.5-6.2 [facility] Comment on above: Performed By: #### A 1C #### [facility] [address] [place] [address] Dr. Oscar Ocampo LIPID PROFILEon 12-21-2022 CHOL-HDL RATIO NORM SEE BELOW Normal [facility] Comment on above: Result Comment: 3.3 - 4.4 LOW RISK 4.4 - 7.1 AVERAGE RISK 7.1 - 11.0 MODERATE RISK >11.0 HIGH RISK Performed By: #### L IPID, BMP #### [facility] [address] [place] [address] Dr. Oscar Ocampo Cholesterol [Mass/Vol] 217 mg/dL Critically high <=200 [facility] Comment on above: Performed By: #### L IPID, BMP #### [facility] [address] [place] [address] Dr. Oscar Ocampo Cholesterol in HDL [Mass/Vol] 40 mg/dL Normal 40-60 [facility] Comment on above: Performed By: #### L IPID, BMP #### [facility] [address] [place] [address] Dr. Oscar Ocampo Cholesterol in LDL [Mass/Vol] 133.4 mg/dL Normal [facility] Comment on above: Performed By: #### L IPID, BMP #### [facility] [address] [place] [address] Dr. Oscar Ocampo Cholesterol.total/Ch olesterol in HDL [Mass ratio] 5.4 {ratio} Normal [facility] Comment on above: Performed By: #### L IPID, BMP #### [facility] [address] [address] [address] Oscar Ocampo HDL NORMAL > or = 60 mg/dl - LO W CARDIOVASCULAR RISK <40 mg/dl - HIGH CARDIOVASCULAR RISK Normal [facility] Comment on above: Performed By: #### L IPID, BMP #### [facility] [address] [address] [address] Oscar Ocampo LDL CALC NORMAL SEE BELOW Normal [facility] Comment on above: Result Comment: <100 mg/dl OPTIMAL 100 - 129 mg/dl NEAR OR ABOVE OPTIMAL 130 - 159 mg/dl BORDERLINE HIGH 160 - 189 mg/dl HIGH >190 mg/dl VERY HIGH Performed By: #### L IPID, BMP #### [facility] [address] [place] [address] Dr. Oscar Ocampo Triglyceride [Mass/Vol] 218 mg/dL Critically high <=150 [facility] Comment on above: Performed By: #### L IPID, BMP #### [facility] [address] [place] [address] Dr. Oscar Ocampo VLDL CALC 43.6 mg/dL Normal [facility] Comment on above: Performed By: #### L IPID, BMP #### [facility] [address] [place] [address] Dr. Oscar Ocampo PROF CHEM 8 (BAS METB)on Anion gap [Moles/Vol] 12.6 mmol/L Normal [facility] Comment on above: Performed By: #### L IPID, BMP #### [facility] [address] [place] [address] Dr. Oscar Ocampo Calcium [Mass/Vol] 9.6 mg/dL Normal 8.5-10.1 [facility] Comment on above: Performed By: #### L IPID, BMP #### [facility] [address] [place] [address] Dr. Oscar Ocampo Chloride [Moles/Vol] 100 mmol/L Normal 98-107 [facility] Comment on above: Performed By: #### L IPID, BMP #### [facility] [address] [address] [address] Oscar Ocampo CO2 [Moles/Vol] 28.6 mmol/L Normal 21.0-32.0 [facility] Comment on above: Performed By: #### L IPID, BMP #### [facility] [address] [address] [address] Oscar Ocampo Creatinine [Mass/Vol] 0.84 mg/dL Normal 0.70-1.30 [facility] Comment on above: Performed By: #### L IPID, BMP #### [facility] [address] [address] [address] Oscar Ocampo EGFR-AF TONGAN >60 Normal >=60 [facility] Comment on above: Performed By: #### L IPID, BMP #### [facility] [address] [address] [address] Oscar Ocampo EGFR-NON AF TONGAN >60 Normal >=60 [facility] Comment on above: Performed By: #### L IPID, BMP #### [facility] [address] [address] [address] Oscar Ocampo Glucose [Mass/Vol] 197 mg/dL Critically high 74-106 T [facility] Comment on above: Performed By: #### L IPID, BMP #### [facility] [address] [address] [address] Oscar Ocampo Potassium [Moles/Vol] 4.2 mmol/L Normal 3.5-5.1 [facility] Comment on above: Performed By: #### L IPID, BMP #### [facility] [address] [address] [address] Oscar Ocampo Sodium [Moles/Vol] 137 mmol/L Normal 136-145 [facility] Comment on above: Performed By: #### L IPID, BMP #### [facility] [address] [address] [address] Oscar Ocampo Urea nitrogen [Mass/Vol] 14.0 mg/dL Normal 7.0-18.0 [facility] Comment on above: Performed By: #### L IPID, BMP #### [facility] [address] [address] [address] Oscar Ocampo Urea nitrogen/Creatinine [Mass ratio] 16.7 mg/mg Normal [facility] Comment on above: Performed By: #### L IPALBINA, BMP #### [facility] [address] [address] [address] Oscar Yip 12-15-2022 CNPN Telephone (NPRC21) BHAVESH CÁRDENAS ([id number]) 1975 M Date Time Provider Department 12/15/22 LORI WOODY [facility] During your visit today, we recorded [...] Status:Closed by LORI WOODY on 12/15/22 Normal [facility] CNOVon 11-24-2022 CNOV Office Visit (SPNMMN ) MELIABHAVESH Carranza ([id number]) 1975 M Date Time Provider Department 11/24/22 10:00 AM SPINE MED PROCEDURE MAIN SPNMMN During your visit today, we recorded the following information about you: Temperature Pulse Respiration Blood pressure 98.2 degrees 89/minute 18/minute 140/94 Patricia Hylton 12/26/2022 10:12 AM Signed cancelled Gillian Vega RN 11/24/2022 10:54 AM Signed PATIENT NAME: Bhavesh Tere Cárdenas 1975 47 year old Current medications and allergies reviewed with patient in visit navigator: Yes Baseline vital signs and pain assessment entered in activity in visit navigator: Yes Edge Blacker 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 Menstrual Date: NA Undergone Injection in the past: Yes, [place] Time since last PO intake: this am [...] All in agreement. Referring Provider: KB LORENZO [[id number]] Allergies As of Date: 11/24/2022 Noted Allergy Reaction NSAIDS (NON-STEROIDAL ANTI-INFLAM* 3 10 - Anaphylaxis 14 - Other: See Comments 12 - Shortness of Breath 7 - Swelling Date Reviewed: 11/24/2022 Reviewed by: Gillian Vega RN - Fully Assessed Primary Visit Diagnosis:APPOINTMENT CANCELLED Order(s):GLUCOSE, BLOOD (POC) [[id number]] Order #: [id number]. #:[id number] Prescriptions as of 12/26/2022 - DULoxetine (CYMBALTA) [...] (None) Visit Notes: >> Gillian Vega RN Fri Nov 24, 2022 10:02 AM Status: Signed PATIENT NAME: Bhavesh Cárdenas 1975 47 year old Current medications and allergies reviewed with patient in visit navigator: Yes Baseline vital signs and pain assessment entered in activity in visit navigator: Yes Edge Blacker for post spine injection procedure: Yes First [...] Status:Closed by PATRICIA VIGIL on 12/26/22 Normal [facility] GLUCOSE, BLOOD (POC)on 11-24 Glucose [Mass/Vol] 430 mg/dL Abnormal 74 - 99 mg/dL [facility] CNPNon 11-16-2022 CNPN Telephone (SPNMMN) BHAVESH CÁRDENAS ([id number]) 1975 M Date Time Provider Department 11/16/22 KB LORENZO [facility] During your visit today, we recorded the following information about you: [place] Ly LPN 11/16/2022 1:00 PM Signed Tried to reach patient via telephone for pre-procedure guidelines regarding spine injection with Dr. Lorenzo on 11/24/2022, patient unable to talk on phone at this time. Voicemail box is full and cannot accept messages at this time.. [employer] message sent with pre-procedure guidelines for injection. [...] Status:Closed by WASHINGTON LY on 11/16/22 Normal [facility] CNOVon 11-15-2022 CNOV Office Visit (NPRC21 ) BHAVESH CÁRDENAS ([id number]) 1975 M Date Time Provider Department 11/15/22 2:00 PM KB LORENZO NPRC21 During your visit today, we recorded the following information about you: Pulse Respiration Blood pressure 90/minute 18/minute 121/87 Kb Lorenzo DO 12/09/2022 11:53 AM Signed [facility] [place] November 15, 2022 This is a in-person visit. 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 He was referred by Olayinka Boyd [id number] [facility] [id number]. Chief complaint: Center of back pain that [...] doctor and was seen by rheumatology. 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 He started physical therapy In 2020 the patient was sent to a L5-S1 for radiofrequency ablation that were not helpful. The diagnostic blocks was done as well. This was done at [place] [facility]. The patient tried to tolerate it, but [...] patient was seen by neurosurgery here at [facility] and not deemed an appropriate surgical [...] Denies CHF: Denies Uncontrolled HTN: Denies Recent CO: Denies Arrythmias: Denies Afib: Denies Hyperthyroid: Denies [...] and extrem (more content not included)... Normal [facility] MIKAYLA BY IFA WITH REFLEXon Nuclear Ab IF (S) [Titer] Negative Normal Negative [facility] Comment on above: Order Comment: Speci men Type: BLOOD SPECIMENOrdering Facility: [facility] Address: [address] [place] [address] Result Comment: Anti -nuclear antibody test is used as an aid in diagnosis of systemic autoimmune diseases. Where positive and clinically warranted, follow-up using disease-specific testing is recommended. Low positive titers are not uncommon with advanced age, certain chronic infections, and malignancies among others. Test methodology: Indirect fluorescence immunoassay (IFA) using HEp-2 cells. Performed By: #### A NAIFR ####[facility] LABCLIA [id number] [place] [address] [place] C-REACTIVE PROTEIN (CRP)on 0 10-30-2022 CRP [Mass/Vol] <0.9 mg/dL [facility] CBC W Auto Differential pane l (Bld)on 10-30-2022 Basophils (Bld) [#/Vol] 0.07 10*3/uL Normal <0.11 [facility] Comment on above: Order Comment: Speci men Type: BLOOD SPECIMENOrdering Facility: [facility] Address: [address] Performed By: #### 5 7021-8, 7 ####[facility] LABCLIA [id number] [place] [address] [place] Basophils/100 WBC (Bld) 0.8 % Normal [facility] Comment on above: Order Comment: Speci men Type: BLOOD SPECIMENOrdering Facility: [facility] Address: [address] Performed By: #### 5 7021-8, 7 ####[facility] LABCLIA [id number] [place] [address] [place] Differential cell count method Nom (Bld) Auto Normal [facility] Comment on above: Order Comment: Speci men Type: BLOOD SPECIMENOrdering Facility: [facility] Address: [address] Performed By: #### 5 7021-8, 7 ####[facility] LABCLIA [id number] [place] [address] [place] Eosinophils (Bld) [#/Vol] 0.17 10*3/uL Normal <0.46 [facility] Comment on above: Order Comment: Speci men Type: BLOOD SPECIMENOrdering Facility: [facility] Address: [address] Performed By: #### 5 7021-8, 4537-04 ####[facility] LABCLIA [id number] [place] [address] [place] Eosinophils/100 WBC (Bld) 1.9 % Normal [facility] Comment on above: Order Comment: Speci men Type: BLOOD SPECIMENOrdering Facility: [facility] Address: [address] Performed By: #### 5 7021-8, 4536-7 ####[facility] LABCLIA [id number] [place] [address] [place] Erythrocyte distribution width (RBC) [Ratio] 11.8 % Normal 11.5-15.0 [facility] Comment on above: Order Comment: Speci men Type: BLOOD SPECIMENOrdering Facility: [facility] Address: [address] [place] [address] Performed By: #### 5 7021-8, 7 ####[facility] LABCLIA [id number] [place] [address] [place] Hematocrit (Bld) [Volume fraction] 45.8 % Normal 39.0-51.0 [facility] Comment on above: Order Comment: Speci men Type: BLOOD SPECIMENOrdering Facility: [facility] Address: [address] [place] [address] Performed By: #### 5 7021-8, 7 ####[facility] LABCLIA [id number] [place] [address] [place] Hemoglobin (Bld) [Mass/Vol] 15.7 g/dL Normal 13.0-17.0 [facility] Comment on above: Order Comment: Speci men Type: BLOOD SPECIMENOrdering Facility: [facility] Address: [address] [place], [place] [id number] Performed By: #### 5 7021-8, 7 ####[facility] LABCLIA [id number] [place] [address] [place] Immature granulocytes (Bld) [#/Vol] 0.06 10*3/uL Normal <0.10 [facility] Comment on above: Order Comment: Speci men Type: BLOOD SPECIMENOrdering Facility: [facility] Address: [address] [place] [address] Performed By: #### 5 7021-8, 4536-7 ####[facility] LABCLIA [id number] [place] [address] [place] Immature granulocytes/100 WBC (Bld) 0.7 % Normal [facility] Comment on above: Order Comment: Speci men Type: BLOOD SPECIMENOrdering Facility: [facility] Address: [address] [place] [address] Performed By: #### 5 7021-8, 4537-7 ####[facility] LABCLIA [id number] [place] [address] [place] Lymphocytes (Bld) [#/Vol] 2.56 10*3/uL Normal 1.00-4.00 [facility] Comment on above: Order Comment: Speci men Type: BLOOD SPECIMENOrdering Facility: [facility] Address: [address] [place] [address] Performed By: #### 5 7021-8, 4536-7 ####[facility] LABIA [id number] [place] [address] [place] Lymphocytes/100 WBC (Bld) 27.9 % Normal [facility] Comment on above: Order Comment: Speci men Type: BLOOD SPECIMENOrdering Facility: [facility] Address: [address] [place] [address] Performed By: #### 5 7021-8, 4537-7 ####[facility] LABIA [id number] [place] [address] [place] MCH (RBC) [Entitic mass] 30.3 pg Normal 26.0-34.0 [facility] Comment on above: Order Comment: Speci men Type: BLOOD SPECIMENOrdering Facility: [facility] Address: [address] [place] [address] Performed By: #### 5 7021-8, 4537-7 ####[facility] LABCLIA [id number] [place] [address] [place] MCHC (RBC) [Mass/Vol] 34.3 g/dL Normal 30.5-36.0 [facility] Comment on above: Order Comment: Speci men Type: BLOOD SPECIMENOrdering Facility: [facility] Address: [address] [place] [phone] Performed By: #### 5 7021-8, 4537-04 ####[facility] LABCLIA [id number] [place] [address] [place] MCV (RBC) [Entitic vol] 88.4 fL Normal 80.0-100.0 [facility] Comment on above: Order Comment: Speci men Type: BLOOD SPECIMENOrdering Facility: [facility] Address: [address] [place] [address] Performed By: #### 5 7021-8, 4537-04 ####[facility] LABCLIA [id number] [place] [address] [place] Monocytes (Bld) [#/Vol] 0.70 10*3/uL Normal <0.87 [facility] Comment on above: Order Comment: Speci men Type: BLOOD SPECIMENOrdering Facility: [facility] Address: [address] [place] [phone] Performed By: #### 5 7021-8, 4537-04 ####[facility] LABCLIA [id number] [place] [address] [place] Monocytes/100 WBC (Bld) 7.6 % Normal [facility] Comment on above: Order Comment: Speci men Type: BLOOD SPECIMENOrdering Facility: [facility] Address: [address] [place] [address] Performed By: #### 5 7021-8, 4537-04 ####[facility] LABCLIA [id number] [place] [address] [place] Neutrophils (Bld) [#/Vol] 5.62 10*3/uL Normal 1.45-7.50 [facility] Comment on above: Order Comment: Speci men Type: BLOOD SPECIMENOrdering Facility: [facility] Address: [address] Performed By: #### 5 7021-8, 4536-7 ####[facility] LABCLIA [id number] [address] [place] Neutrophils/100 WBC (Bld) 61.1 % Normal [facility] Comment on above: Order Comment: Speci men Type: BLOOD SPECIMENOrdering Facility: [facility] Address: [address] [place] [address] Performed By: #### 5 7021-8, 4536-7 ####[facility] LABCLIA [id number] [place] [address] [place] Nucleated RBC (Bld) [#/Vol] 10*3/uL Normal <0.01 [facility] Comment on above: Order Comment: Speci men Type: BLOOD SPECIMENOrdering Facility: [facility] Address: [address] [place], [place] [id number] Performed By: #### 5 7021-8, 4536-7 ####[facility] LABIA [id number] [address] [place] Nucleated RBC/100 WBC (Bld) [Ratio] 0.0 /100 WBC Normal [facility] Comment on above: Order Comment: Speci men Type: BLOOD SPECIMENOrdering Facility: [facility] Address: [address] [place], [place] [id number] Performed By: #### 5 7021-8, 4536-7 ####[facility] LABIA [id number] [place] [address] [place] Platelet mean volume (Bld) [Entitic vol] 11.5 fL Normal 9.0-12.7 [facility] Comment on above: Order Comment: Speci men Type: BLOOD SPECIMENOrdering Facility: [facility] Address: [address] [place] [address] Performed By: #### 5 7021-8, 7-7 ####[facility] LABIA [id number] [place] [address] [place] Platelets (Bld) [#/Vol] 348 10*3/uL Normal 150-400 [facility] Comment on above: Order Comment: Speci men Type: BLOOD SPECIMENOrdering Facility: [facility] Address: [address] [place], [place] [id number] Performed By: #### 5 7021-8, 4536-7 ####[facility] LABIA [id number] [place] [address] [place] RBC (Bld) [#/Vol] 5.18 10*6/uL Normal 4.20-6.00 [facility] Comment on above: Order Comment: Speci men Type: BLOOD SPECIMENOrdering Facility: [facility] Address: [address] [place], [place] [id number] Performed By: #### 5 7021-8, 4536-7 ####[facility] LABIA [id number] [place] [address] [place] WBC (Bld) [#/Vol] 9.18 10*3/uL Normal 3.70-11.00 [facility] Comment on above: Order Comment: Speci men Type: BLOOD SPECIMENOrdering Facility: [facility] Address: [address] [place] [address] Performed By: #### 5 7021-8, 7-7 ####[facility] LABIA [id number] [place] [address] [facility] [place] Basophils (Bld) [#/Vol] 0.07 10*3/uL <0.11 k/uL [facility] Basophils/100 WBC (Bld) 0.8 % [facility] Differential cell count method Nom (Bld) Auto [facility] Eosinophils (Bld) [#/Vol] 0.17 10*3/uL <0.46 k/uL [facility] Eosinophils/100 WBC (Bld) 1.9 % [facility] Erythrocyte distribution width (RBC) [Ratio] 11.8 % 11.5 - 15.0 % [facility] Hematocrit (Bld) [Volume fraction] 45.8 % 39.0 - 51.0 % [facility] Hemoglobin (Bld) [Mass/Vol] 15.7 g/dL 13.0 - 17.0 g/dL [facility] Immature granulocytes (Bld) [#/Vol] 0.06 10*3/uL <0.10 k/uL [facility] Immature granulocytes/100 WBC (Bld) 0.7 % [facility] Lymphocytes (Bld) [#/Vol] 2.56 10*3/uL 1.00 - 4.00 k/uL [facility] Lymphocytes/100 WBC (Bld) 27.9 % [facility] MCH (RBC) [Entitic mass] 30.3 pg 26.0 - 34.0 pg [facility] MCHC (RBC) [Mass/Vol] 34.3 g/dL 30.5 - 36.0 g/dL [facility] MCV (RBC) [Entitic vol] 88.4 fL 80.0 - 100.0 fL [facility] Monocytes (Bld) [#/Vol] 0.70 10*3/uL <0.87 k/uL [facility] Monocytes/100 WBC (Bld) 7.6 % [facility] Neutrophils (Bld) [#/Vol] 5.62 10*3/uL 1.45 - 7.50 k/uL [facility] Neutrophils/100 WBC (Bld) 61.1 % [facility] Nucleated RBC (Bld) [#/Vol] <0.01 k/uL [facility] Nucleated RBC/100 WBC (Bld) [Ratio] 0.0 /100 WBC [facility] Platelet mean volume (Bld) [Entitic vol] 11.5 fL 9.0 - 12.7 fL [facility] Platelets (Bld) [#/Vol] 348 10*3/uL 150 - 400 k/uL [facility] RBC (Bld) [#/Vol] 5.18 10*6/uL 4.20 - 6.0 0 m/uL [facility] WBC (Bld) [#/Vol] 9.18 10*3/uL 3.70 - 11. 00 k/uL [facility] CNOVon 10-30-2022 CNOV Office Visit (RHARMN ) BHAVESH CÁRDENAS ([id number]) 1975 M Date Time Provider Department 10/30/22 9:00 AM SANTANA HARRIS RHREI During your visit today, we recorded the following information about you: Temperature Pulse Blood pressure 95.6 degrees 68/minute 144/96 Santana Harris MD 10/30/2022 10:20 AM Signed ref: Shaikh Moi [address] [facility] [address] I have been asked to see Bhavesh Cárdenas for Osteoarthritis by Shaikh Moi [address] [facility] [address] HPI: Back pain for most of his lef. On the right side, just above the buttocks. The past six months it is painful picking up 24 pack of water. Leg drags on R a couple of times. Has fallen a couple of times. [place] like it lost control while walking. Has [...] his DIP joints Has noticed decrease in sleeve fixer strength. Hands swell. Has pain worse first [...] well nourishe (more content not included)... Normal [facility] CRP SerPl-mCncon 10-30-2022 CRP [Mass/Vol] mg/L Normal <0.9 [facility] Comment on above: Order Comment: Speci men Type: BLOOD SPECIMENOrdering Facility: [facility] Address: [address] [place] [address] Performed By: #### 1 988-5, 88356-5, 98066-5 ####[facility] LABCLIA [id number] [place] [address] [place] Comprehensive metabolic 2000 panelon 10-30-2022 Albumin [Mass/Vol] 4.5 g/dL 3.9 - 4.9 g/dL [facility] ALP [Catalytic activity/Vol] 115 U/L High 38 - 113 U/L [facility] ALT [Catalytic activity/Vol] 19 U/L 10 - 54 U/L [facility] Anion gap [Moles/Vol] 14 mmol/L 9 - 18 mmol/L [facility] AST [Catalytic activity/Vol] 15 U/L 14 - 40 U/L [facility] Bilirubin [Mass/Vol] 0.5 mg/dL 0.2 - 1 .3 mg/dL [facility] Calcium [Mass/Vol] 9.5 mg/dL 8.5 - 10. 2 mg/dL [facility] Chloride [Moles/Vol] 94 mmol/L Low 97 - 10 5 mmol/L [facility] CO2 [Moles/Vol] 25 mmol/L 22 - 30 mmol/L [facility] Creatinine [Mass/Vol] 0.72 mg/dL Low 0.73 - 1.22 mg/dL [facility] Estimated Glomerular Filtration Rate 113 mL/min/1.73m >=60 mL/min/1.73m [facility] Glucose [Mass/Vol] 372 mg/dL High 74 - 99 mg/dL [facility] Potassium [Moles/Vol] 4.5 mmol/L 3.7 - 5.1 mmol/L [facility] Protein [Mass/Vol] 7.5 g/dL 6.3 - 8.0 g/dL [facility] Sodium [Moles/Vol] 133 mmol/L Low 136 - 144 mmol/L [facility] Urea nitrogen [Mass/Vol] 15 mg/dL 9 - 24 mg/dL [facility] Albumin [Mass/Vol] 4.5 g/dL Normal 3.9-4.9 [facility] Comment on above: Order Comment: Speci men Type: BLOOD SPECIMENOrdering Facility: [facility] Address: [address] [place], [place] [id number] Performed By: #### 1 988-5, 71610-3, 47889-9 ####[facility] [id number] [place] [address] [place] ALP [Catalytic activity/Vol] 115 U/L High 38-113 [facility] Comment on above: Order Comment: Speci men Type: BLOOD SPECIMENOrdering Facility: [facility] Address: [address] [id number] Performed By: #### 1 988-5, 66676-3, 05669-9 ####[facility] LABIA [id number] [address] [place] ALT [Catalytic activity/Vol] 19 U/L Normal 10-54 [facility] Comment on above: Order Comment: Speci men Type: BLOOD SPECIMENOrdering Facility: [facility] Address: [address] Performed By: #### 1 988-5, 60098-1, 22322-3 ####[facility] LABCLIA [id number] [place] [address] [place] Anion gap [Moles/Vol] 14 mmol/L Normal 9-18 [facility] Comment on above: Order Comment: Speci men Type: BLOOD SPECIMENOrdering Facility: [facility] Address: [address] [address] Performed By: #### 1 988-5, 65922-8, 29861-9 ####[facility] LABIA [id number] [place] [address] [place] AST [Catalytic activity/Vol] 15 U/L Normal 14-40 [facility] Comment on above: Order Comment: Speci men Type: BLOOD SPECIMENOrdering Facility: [facility] Address: [address] [place] [address] Performed By: #### 1 988-5, 51770-6, 82277-8 ####[facility] LABIA [id number] [place] [address] [place] Bilirubin [Mass/Vol] 0.5 mg/dL Normal 0.2-1.3 [facility] Comment on above: Order Comment: Speci men Type: BLOOD SPECIMENOrdering Facility: [facility] Address: [address] Performed By: #### 1 988-5, 41989-1, 21803-0 ####[facility] LABIA [id number] [place] [address] [place] Calcium [Mass/Vol] 9.5 mg/dL Normal 8.5-10.2 [facility] Comment on above: Order Comment: Speci men Type: BLOOD SPECIMENOrdering Facility: [facility] Address: [address] [address] Performed By: #### 1 988-5, 12756-6, 81854-5 ####[facility] LABIA [id number] [place] [address] [place] Chloride [Moles/Vol] 94 mmol/L Low 97-105 [facility] Comment on above: Order Comment: Speci men Type: BLOOD SPECIMENOrdering Facility: [facility] Address: [address] [place], [place] [id number] Performed By: #### 1 988-5, 89359-4, 43949-4 ####[facility] LABIA [id number] [place] [address] [place] CO2 [Moles/Vol] 25 mmol/L Normal 22-30 [facility] Comment on above: Order Comment: Speci men Type: BLOOD SPECIMENOrdering Facility: [facility] Address: [address] [place], [place] [address] Performed By: #### 1 988-5, 03075-4, 87609-7 ####[facility] [id number] [place] [address] [place] Creatinine [Mass/Vol] 0.72 mg/dL Low 0.73-1.22 [facility] Comment on above: Order Comment: Speci men Type: BLOOD SPECIMENOrdering Facility: [facility] Address: [address] [place], [place] [id number] Performed By: #### 1 988-5, 03123-1, 50436-2 ####[facility] [id number] [place] [address] [place] ESTIMATED GLOMERULAR FILTRATION RATE 113 mL/min/1.73m??? Normal >=60 [facility] Comment on above: Order Comment: Speci men Type: BLOOD SPECIMENOrdering Facility: [facility] Address: [address] [place], [place] [id number] Result Comment: Yola mated Glomerular Filtration Rate [...] actual GFR. Performed By: #### 1 988-5, 28375-6, 41206-3 ####[facility] LABCLIA [id number] [address] [address] [place] Glucose [Mass/Vol] 372 mg/dL High 74-99 [facility] Comment on above: Order Comment: Speci men Type: BLOOD SPECIMENOrdering Facility: [facility] Address: [address] [id number] Result Comment: The [place] [employer] (ADA) provides guidance for cutoff [...] Standards of Medical Care in Diabetes 2016, [place] [employer]. Diabetes Care. 2016.39(Suppl 1). Performed By: #### 1 988-5, , ####[facility] LABIA [id number] [place] [id number] [place] Potassium [Moles/Vol] 4.5 mmol/L Normal 3.7-5.1 [facility] Comment on above: Order Comment: Marina ernst Type: BLOOD SPECIMENOrdering Facility: [facility] Address: [address] [place] [address] Performed By: #### 1 988-5, 22751-6, 08461-9 ####[facility] LABCLIA [id number] [place] [address] [place] Protein [Mass/Vol] 7.5 g/dL Normal 6.3-8.0 [facility] Comment on above: Order Comment: Speci men Type: BLOOD SPECIMENOrdering Facility: [facility] Address: [address] [place] [address] Performed By: #### 1 988-5, 50081-5, 61530-3 ####[facility] LABCLIA [id number] [place] [address] [place] Sodium [Moles/Vol] 133 mmol/L Low 136-144 [facility] Comment on above: Order Comment: Speci men Type: BLOOD SPECIMENOrdering Facility: [facility] Address: [address] [place] [address] Performed By: #### 1 988-5, 50628-9, 15027-5 ####[facility] LABCLIA [id number] [place] [address] [place] Urea nitrogen [Mass/Vol] 15 mg/dL Normal 9-24 [facility] Comment on above: Order Comment: Speci men Type: BLOOD SPECIMENOrdering Facility: [facility] Address: [address] [place] [address] Performed By: #### 1 988-5, 90842-7, 79507-3 ####[facility] LABIA [id number] [place] [address] [place] Cyclic citrullinated peptide IgG Qnon 10-30-2022 CCP ANTIBODY IGG QUALITATIVE Negative Normal Negative [facility] Comment on above: Order Comment: Speci men Type: BLOOD SPECIMENOrdering Facility: [facility] Address: [address] [place] [address] Performed By: #### 3 3935-8 ####[facility] LABCLIA [id number] [place] [address] [place] ESR Westergren method (Bld) [Velocity]on 10-30-2022 ESR (Bld) [Velocity] 8 mm/h Normal 0-15 [facility] Comment on above: Order Comment: Speci men Type: BLOOD SPECIMENOrdering Facility: [facility] Address: [address] [place] [address] Performed By: #### 5 7021-8, 4537-7 ####[facility] LABCLIA [id number] [address] [place] No Panel Informationon 10-30 [facility] RHEUMATOID FACTOR BLon 10-30 Rheumatoid factor Qn <16 IU/mL [facility] Rheumatoid fact SerPl-aCncon 10-30-2022 Rheumatoid factor Qn [IU]/mL Normal <16 [facility] Comment on above: Order Comment: Speci men Type: BLOOD SPECIMENOrdering Facility: [facility] Address: [address] [place] [address] Performed By: #### 1 988-5, 61795-4, 08197-2 ####[facility] LABCLIA [id number] [address] [place] Urinalysis complete panel (U )on 10-30-2022 Bilirubin Ql (U) Negative Negative [facility] Clarity (Unsp spec) Clear Clear [facility] Color (U) Light Yellow Yellow [facility] Epithelial cells LM.HPF (Urine sed) [#/Area] Few [facility] Glucose Test strip (U) [Mass/Vol] 4+ Abnormal Trace, Negative [facility] Hemoglobin Ql (U) Negative Negative, Trace [facility] Ketones Ql (U) 1+ Abnormal Trace, Negative [facility] Leukocyte esterase Test strip Ql (U) Negative Negative, 25 Onesimo/mL [facility] Nitrite Ql (U) Negative Negative [facility] pH (U) 5.5 [pH] 5.0 - 8.0 [facility] Protein (U) [Mass/Vol] Trace Trace, Negative [facility] RBC LM.HPF (Urine sed) [#/Area] 0-3 /HPF 0-3 /HPF [facility] Specific gravity (U) [Rel density] 1.041 High 1.005 - 1.030 [facility] Urobilinogen Ql (U) Negative Negative [facility] WBC LM.HPF (Urine sed) [#/Area] 0-5 /HPF 0-5 /HPF [facility] Bilirubin Ql (U) Negative Normal Negative [facility] Comment on above: Order Comment: Speci men Type: URINE SPECIMENOrdering Facility: [facility] Address: [address] [place] [address] Performed By: #### 2 4356-8 ####[facility] LABIA [id number] [place] [address] [place] Clarity (Unsp spec) Clear Normal Clear [facility] Comment on above: Order Comment: Speci men Type: URINE SPECIMENOrdering Facility: [facility] Address: [address] [place] [address] Performed By: #### 2 4356-8 ####[facility] LABIA [id number] [place] [address] [place] Color (U) Light Yellow Normal Yellow [facility] Comment on above: Order Comment: Speci men Type: URINE SPECIMENOrdering Facility: [facility] Address: [address] [place] [address] Performed By: #### 2 4356-8 ####[facility] LABIA [id number] [place] [address] [place] Epithelial cells LM.HPF (Urine sed) [#/Area] Few Normal [facility] Comment on above: Order Comment: Speci men Type: URINE SPECIMENOrdering Facility: [facility] Address: [address] [place], [place] [address] Performed By: #### 2 4356-8 ####[facility] LABCLIA [id number] [place] [address] [place] Glucose Test strip (U) [Mass/Vol] 4+ Abnormal Trace, Negative [facility] Comment on above: Order Comment: Speci men Type: URINE SPECIMENOrdering Facility: [facility] Address: [address] [address] Performed By: #### 2 4356-8 ####[facility] LABCLIA [id number] [place] [address] [place] Hemoglobin Ql (U) Negative Normal Negative, Trace [facility] Comment on above: Order Comment: Speci men Type: URINE SPECIMENOrdering Facility: [facility] Address: [address] [address] Performed By: #### 2 4356-8 ####[facility] LABCLIA [id number] [place] [address] [place] Ketones Ql (U) 1+ Abnormal Trace, Negative [facility] Comment on above: Order Comment: Speci men Type: URINE SPECIMENOrdering Facility: [facility] Address: [address] Performed By: #### 2 4356-8 ####[facility] LABCLIA [id number] [place] [address] [place] Leukocyte esterase Test strip Ql (U) Negative Normal Negative, 25 Onesimo/mL [facility] Comment on above: Order Comment: Speci men Type: URINE SPECIMENOrdering Facility: [facility] Address: [address] Performed By: #### 2 4356-8 ####[facility] LABCLIA [id number] [place] [address] [place] Nitrite Ql (U) Negative Normal Negative [facility] Comment on above: Order Comment: Speci men Type: URINE SPECIMENOrdering Facility: [facility] Address: [address] Performed By: #### 2 4356-8 ####[facility] LABCLIA [id number] [address] [place] pH (U) 5.5 [pH] Normal 5.0-8.0 [facility] Comment on above: Order Comment: Speci men Type: URINE SPECIMENOrdering Facility: [facility] Address: [address] [place] [address] Performed By: #### 2 4356-8 ####[facility] LABIA [id number] [place] [address] [place] Protein (U) [Mass/Vol] Trace Normal Trace, Negative [facility] Comment on above: Order Comment: Speci men Type: URINE SPECIMENOrdering Facility: [facility] Address: [address] [place] [address] Performed By: #### 2 4356-8 ####[facility] [id number] [place] [address] [place] RBC LM.HPF (Urine sed) [#/Area] 0-3 /HPF Normal 0-3 /HPF [facility] Comment on above: Order Comment: Speci men Type: URINE SPECIMENOrdering Facility: [facility] Address: [address] [place], [place] [address] Performed By: #### 2 4356-8 ####[facility] [id number] [place] [address] [place] Specific gravity (U) [Rel density] 1.041 High 1.005-1.030 [facility] Comment on above: Order Comment: Speci men Type: URINE SPECIMENOrdering Facility: [facility] Address: [address] [place], [place] [address] Performed By: #### 2 4356-8 ####[facility] [id number] [place] [address] [place] Urobilinogen Ql (U) Negative Normal Negative [facility] Comment on above: Order Comment: Speci men Type: URINE SPECIMENOrdering Facility: [facility] Address: [address] [place] [address] Performed By: #### 2 4356-8 ####[facility] [id number] [place] [address] [place] WBC LM.HPF (Urine sed) [#/Area] 0-5 /HPF Normal 0-5 /HPF [facility] Comment on above: Order Comment: Speci men Type: URINE SPECIMENOrdering Facility: [facility] Address: [address] [id number] Performed By: #### 2 4356-8 ####[facility] [id number] [place] [address] [place] XR HAND/WRIST SURVEY 1V PA B VTon 10-30-2022 XR HAND/WRIST SURVEY 1V PA MAYURI [...] IMPRESSION: No radiographic findings of inflammatory arthropathy. 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 Transcribe Date/Time: Oct 30 2022 10:39A Dictated by : OLAYINKA SARGENT MD This examination was interpreted and the report reviewed and electronically signed by: OLAYINKA SARGENT MD on Oct 30 2022 10:39AM EST [id number] Normal [facility] cCP IgG SerPl-aCncon 023 Cyclic citrullinated peptide IgG Qn <15 Normal <20 [facility] Comment on above: Order Comment: Speci men Type: BLOOD SPECIMENOrdering Facility: [facility] Address: [address] [place] [address] Performed By: #### 3 3935-8 ####[facility] LABCLIA [id number] [id number] [id number] [place] CNOVon 10-19-2022 CNOV Office Visit (SPMESH ) LISGennyBHAVESH C ([id number]) 1975 M Date Time Provider Department 10/19/22 [...] LEFT Lateral (more content not included)... Normal [facility] XR hip RT min 2V(w/wo pelvis )*on 09-28-2022 XR hip RT min 2V(w/wo pelvis)* [facility] [employer] Other XR hip RT min 2V(w/wo pelvis)* [facility] [address] [employer] Other XR hip RT min 2V(w/wo pelvis)* [address] [facility] [employer] Other XR hip RT min 2V(w/wo pelvis)* [place] [address] [employer] Other XR hip RT min 2V(w/wo pelvis)* XRay Report [employer] Other XR hip RT min 2V(w/wo pelvis)* Signed [employer] Other XR hip RT min 2V(w/wo pelvis)* Patient: Bhavesh Cárdenas MR#: [id number] [employer] Other XR hip RT min 2V(w/wo pelvis)* 3246 [employer] Other XR hip RT min 2V(w/wo pelvis)* : 1975 Acct:[id number] [employer] Other XR hip RT min 2V(w/wo pelvis)* Age/Sex: 46 / M ADM Date: 09/28/22 [employer] Other XR hip RT min 2V(w/wo pelvis)* Loc: [facility] Room: Type: [facility] [employer] Other XR hip RT min 2V(w/wo pelvis)* Attending Dr: Milton Valentine II, MD [employer] Other XR hip RT min 2V(w/wo pelvis)* Copies to: Milton Valentine MD [employer] Other XR hip RT min 2V(w/wo pelvis)* Ordering Provider: Milton Valentine MD [employer] Other XR hip RT min 2V(w/wo pelvis)* Date of Service: 09/28/22 [employer] Other XR hip RT min 2V(w/wo pelvis)* XR/XR hip RT min 2V(w/wo pelvis)*: Right hip pain [employer] Other XR hip RT min 2V(w/wo pelvis)* RIGHT HIP - 2 views: [employer] Other XR hip RT min 2V(w/wo pelvis)* CLINICAL HISTORY: Right groin pain for the past 6 months. No injury. [employer] Other XR hip RT min 2V(w/wo pelvis)* COMPARISON: None [employer] Other XR hip RT min 2V(w/wo pelvis)* AP view the pelvis and and crosstable lateral views of the right hip were obtained. There is no [employer] Other XR hip RT min 2V(w/wo pelvis)* evidence of fracture or dislocation. The hip joint spaces are symmetric. No prominent hypertrophy [employer] Other XR hip RT min 2V(w/wo pelvis)* is seen. There are no significant soft tissue abnormalities. [employer] Other XR hip RT min 2V(w/wo pelvis)* XR/XR hip RT min 2V(w/wo pelvis)* [employer] Other XR hip RT min 2V(w/wo pelvis)* IMPRESSION: [employer] Other XR hip RT min 2V(w/wo pelvis)* NO ACUTE BONY FINDINGS. [employer] Other XR hip RT min 2V(w/wo pelvis)* Impression dictated by: Polina Cabrera M.D.09/28/2022 2:28 PM [employer] Other XR hip RT min 2V(w/wo pelvis)* Dictation Location: [facility]- [employer] Other XR hip RT min 2V(w/wo pelvis)* Transcribed By: WENDIE 09/28/22 1428 [employer] Other XR hip RT min 2V(w/wo pelvis)* Dictated By: Polina Cabrera MD 09/28/22 1426 [employer] Other XR hip RT min 2V(w/wo pelvis)* Signed By: [employer] Other XR hip RT min 2V(w/wo pelvis)* 09/28/22 142 [employer] Other MRI LSPINE WO CONon 08-18-20 MRI [...] by: DIANA GUZMÁN Date: 2022-08-18 16:57 Normal [facility] XR LSPINE 2_3 VIEWSon 2021 XR [...] by: WASHINGTON DURAN Date: 2022-08-10 18:50 Normal [facility] Vital Signs Date Time Vital Sign Value Performing Clinician Facility 04-06-2025 10:07-0400 Body mass index (BMI) [Ratio] 34.91 kg/m2 Jami Small ASSISTANT SPEECH LANGUAGE PATHOLOGIST Work Phone: [facility] 04-06-2025 10:07-0400 Body temperature 98.1 [degF] Jami Small NP Work Phone: [facility] 04-06-2025 10:07-0400 Body weight 92.26 kg Jami Aichholz ASSISTANT SPEECH LANGUAGE PATHOLOGIST Work Phone: [facility] 04-06-2025 10:07-0400 Diastolic blood pressure 70 mm[Hg] Jami Aichholz ASSISTANT SPEECH LANGUAGE PATHOLOGIST Work Phone: [facility] 04-06-2025 10:07-0400 Heart rate 73 /min Jami Aichholz ASSISTANT SPEECH LANGUAGE PATHOLOGIST Work Phone: [facility] 04-06-2025 10:07-0400 Respiratory rate 18 /min Jami Aichholz ASSISTANT SPEECH LANGUAGE PATHOLOGIST Work Phone: [facility] 04-06-2025 10:07-0400 SaO2% (BldA) [Mass fraction] 96 % Jami Aichholz ASSISTANT SPEECH LANGUAGE PATHOLOGIST Work Phone: [facility] 04-06-2025 10:07-0400 Systolic blood pressure 106 mm[Hg] Jami Aichholz ASSISTANT SPEECH LANGUAGE PATHOLOGIST Work Phone: [facility] 02-23-2025 14:06-0400 Body mass index (BMI) [Ratio] 37.14 kg/m2 Jami Aichholz ASSISTANT SPEECH LANGUAGE PATHOLOGIST Work Phone: [facility] 02-23-2025 14:06-0400 Body temperature 98.29 [degF] Jami Aichholz ASSISTANT SPEECH LANGUAGE PATHOLOGIST Work Phone: [facility] 02-23-2025 14:06-0400 Body weight 98.16 kg Jami Aichholz ASSISTANT SPEECH LANGUAGE PATHOLOGIST Work Phone: [facility] 02-23-2025 14:06-0400 Diastolic blood pressure 88 mm[Hg] Jami Aichholz ASSISTANT SPEECH LANGUAGE PATHOLOGIST Work Phone: [facility] 02-23-2025 14:06-0400 Heart rate 73 /min Jami Aichholz ASSISTANT SPEECH LANGUAGE PATHOLOGIST Work Phone: [facility] 02-23-2025 14:06-0400 Respiratory rate 19 /min Jami Aichholz ASSISTANT SPEECH LANGUAGE PATHOLOGIST Work Phone: [facility] 02-23-2025 14:06-0400 SaO2% (BldA) [Mass fraction] 93 % Jami Small ASSISTANT SPEECH LANGUAGE PATHOLOGIST Work Phone: [facility] 02-23-2025 14:06-0400 Systolic blood pressure 124 mm[Hg] Jami Small ASSISTANT SPEECH LANGUAGE PATHOLOGIST Work Phone: [facility] 11-26-2024 08:31-0500 Body height 162.6 cm Denis Dunlap ASSISTANT SPEECH LANGUAGE PATHOLOGIST Work Phone: [facility] 11-26-2024 08:31-0500 Body mass index (BMI) [Ratio] 36.9 kg/m2 Denis Dunlap ASSISTANT SPEECH LANGUAGE PATHOLOGIST Work Phone: [facility] 11-26-2024 08:31-0500 Body temperature 98.4 [degF] Denis Dunlap ASSISTANT SPEECH LANGUAGE PATHOLOGIST Work Phone: [facility] 11-26-2024 08:31-0500 Body weight 97.52 kg Denis Dunlap ASSISTANT SPEECH LANGUAGE PATHOLOGIST Work Phone: [facility] 11-26-2024 08:31-0500 Diastolic blood pressure 78 mm[Hg] Denis Dunlap ASSISTANT SPEECH LANGUAGE PATHOLOGIST Work Phone: [facility] 11-26-2024 08:31-0500 Heart rate 63 /min Denis Dunlap ASSISTANT SPEECH LANGUAGE PATHOLOGIST Work Phone: [facility] 11-26-2024 08:31-0500 Respiratory rate 16 /min Denis Dunlap ASSISTANT SPEECH LANGUAGE PATHOLOGIST Work Phone: [facility] 11-26-2024 08:31-0500 SaO2% (BldA) [Mass fraction] 98 % Denis Dunlap ASSISTANT SPEECH LANGUAGE PATHOLOGIST Work Phone: [facility] 11-26-2024 08:31-0500 Systolic blood pressure 110 mm[Hg] Denis Dunlap ASSISTANT SPEECH LANGUAGE PATHOLOGIST Work Phone: [facility] 09-01-2024 10:35-0500 Body temperature 98.06 [degF] [facility] 09-01-2024 10:35-0500 Diastolic blood pressure 92 mm[Hg] [facility] 09-01-2024 10:35-0500 Heart rate 83 /min [facility] 09-01-2024 10:35-0500 Respiratory rate 16 /min [facility] 09-01-2024 10:35-0500 SaO2% (BldA) [Mass fraction] 98 % [facility] 09-01-2024 10:35-0500 Systolic blood pressure 149 mm[Hg] [facility] 08-26-2024 14:26-0500 Body height 162.6 cm Denis Dunlap ASSISTANT SPEECH LANGUAGE PATHOLOGIST Work Phone: [facility] 08-26-2024 14:26-0500 Body mass index (BMI) [Ratio] 39.99 kg/m2 Denis Dunlap ASSISTANT SPEECH LANGUAGE PATHOLOGIST Work Phone: [facility] 08-26-2024 14:26-0500 Body temperature 97.7 [degF] Denis Dunlap ASSISTANT SPEECH LANGUAGE PATHOLOGIST Work Phone: [facility] 08-26-2024 14:26-0500 Body weight 105.69 kg Denis Dunlap ASSISTANT SPEECH LANGUAGE PATHOLOGIST Work Phone: [facility] 08-26-2024 14:26-0500 Diastolic blood pressure 76 mm[Hg] Denis Dunlap ASSISTANT SPEECH LANGUAGE PATHOLOGIST Work Phone: [facility] 08-26-2024 14:26-0500 Heart rate 67 /min Denis Dunlap ASSISTANT SPEECH LANGUAGE PATHOLOGIST Work Phone: [facility] 08-26-2024 14:26-0500 Respiratory rate 16 /min Denis Dunlap ASSISTANT SPEECH LANGUAGE PATHOLOGIST Work Phone: [facility] 08-26-2024 14:26-0500 SaO2% (BldA) [Mass fraction] 96 % Denis Dunlap ASSISTANT SPEECH LANGUAGE PATHOLOGIST Work Phone: [facility] 08-26-2024 14:26-0500 Systolic blood pressure 146 mm[Hg] Denis Dunlap ASSISTANT SPEECH LANGUAGE PATHOLOGIST Work Phone: [facility] 07-22-2024 15:29-0400 Body height 162.6 cm Denis Dunlap ASSISTANT SPEECH LANGUAGE PATHOLOGIST Work Phone: [facility] 07-22-2024 15:29-0400 Body mass index (BMI) [Ratio] 40.37 kg/m2 Denis Dunlap ASSISTANT SPEECH LANGUAGE PATHOLOGIST Work Phone: [facility] 07-22-2024 15:29-0400 Body temperature 98.71 [degF] Denis Dunlap ASSISTANT SPEECH LANGUAGE PATHOLOGIST Work Phone: [facility] 07-22-2024 15:29-0400 Body weight 106.69 kg Denis Dunlap ASSISTANT SPEECH LANGUAGE PATHOLOGIST Work Phone: [facility] 07-22-2024 15:29-0400 Diastolic blood pressure 88 mm[Hg] Denis Dunlap ASSISTANT SPEECH LANGUAGE PATHOLOGIST Work Phone: [facility] 07-22-2024 15:29-0400 Heart rate 75 /min Denis Dunlap ASSISTANT SPEECH LANGUAGE PATHOLOGIST Work Phone: [facility] 07-22-2024 15:29-0400 Respiratory rate 18 /min Denis Dunlap ASSISTANT SPEECH LANGUAGE PATHOLOGIST Work Phone: [facility] 07-22-2024 15:29-0400 SaO2% (BldA) [Mass fraction] 96 % Denis Udnlap ASSISTANT SPEECH LANGUAGE PATHOLOGIST Work Phone: [facility] 07-22-2024 15:29-0400 Systolic blood pressure 140 mm[Hg] Denis Dunlap ASSISTANT SPEECH LANGUAGE PATHOLOGIST Work Phone: [facility] 06-26-2024 10:55-0400 Body height 162.6 cm Denis Dunlap ASSISTANT SPEECH LANGUAGE PATHOLOGIST Work Phone: [facility] 06-26-2024 10:55-0400 Body mass index (BMI) [Ratio] 40.17 kg/m2 Denis Dunlap ASSISTANT SPEECH LANGUAGE PATHOLOGIST Work Phone: [facility] 06-26-2024 10:55-0400 Body temperature 97.7 [degF] Denis Dunlap ASSISTANT SPEECH LANGUAGE PATHOLOGIST Work Phone: [facility] 06-26-2024 10:55-0400 Body weight 106.14 kg Denis Dunlap ASSISTANT SPEECH LANGUAGE PATHOLOGIST Work Phone: [facility] 06-26-2024 10:55-0400 Diastolic blood pressure 70 mm[Hg] Denis Dunlap ASSISTANT SPEECH LANGUAGE PATHOLOGIST Work Phone: [facility] 06-26-2024 10:55-0400 Heart rate 89 /min Denis Dunlap ASSISTANT SPEECH LANGUAGE PATHOLOGIST Work Phone: [facility] 06-26-2024 10:55-0400 SaO2% (BldA) [Mass fraction] 97 % Denis Dunlap ASSISTANT SPEECH LANGUAGE PATHOLOGIST Work Phone: [facility] 06-26-2024 10:55-0400 Systolic blood pressure 138 mm[Hg] Denis Dunlap ASSISTANT SPEECH LANGUAGE PATHOLOGIST Work Phone: [facility] 06-11-2024 12:46-0400 Body height 162.6 cm Annie GEORGE Work Phone: [facility] 06-11-2024 12:46-0400 Body mass index (BMI) [Ratio] 39.99 kg/m2 Annie Negro PA Work Phone: [facility] 06-11-2024 12:46-0400 Body weight 105.69 kg Annie Negro PA Work Phone: [facility] 06-11-2024 12:46-0400 Diastolic blood pressure 74 mm[Hg] Annie GEORGE Work Phone: [facility] 06-11-2024 12:46-0400 Heart rate 76 /min Annie Hill PA Work Phone: [facility] 06-11-2024 12:46-0400 Respiratory rate 16 /min Annie Negro PA Work Phone: [facility] 06-11-2024 12:46-0400 SaO2% (BldA) [Mass fraction] 96 % Annie Negro PA Work Phone: [facility] 06-11-2024 12:46-0400 Systolic blood pressure 114 mm[Hg] Annie Luis Felipe PA Work Phone: [facility] 05-27-2024 10:29-0400 Body height 162.6 cm Denis Dunlap ASSISTANT SPEECH LANGUAGE PATHOLOGIST Work Phone: [facility] 05-27-2024 10:29-0400 Body mass index (BMI) [Ratio] 38.96 kg/m2 Denis Dunlap ASSISTANT SPEECH LANGUAGE PATHOLOGIST Work Phone: [facility] 05-27-2024 10:29-0400 Body temperature 98.49 [degF] Denis Dunlap ASSISTANT SPEECH LANGUAGE PATHOLOGIST Work Phone: [facility] 05-27-2024 10:29-0400 Body weight 102.97 kg Denis Dunlap ASSISTANT SPEECH LANGUAGE PATHOLOGIST Work Phone: [facility] 05-27-2024 10:29-0400 Diastolic blood pressure 84 mm[Hg] Denis Dunlap ASSISTANT SPEECH LANGUAGE PATHOLOGIST Work Phone: [facility] 05-27-2024 10:29-0400 Heart rate 79 /min Denis Dunlap ASSISTANT SPEECH LANGUAGE PATHOLOGIST Work Phone: [facility] Comment on above: 96% O2 05-27-2024 10:29-0400 Systolic blood pressure 134 mm[Hg] Denis Dunlap ASSISTANT SPEECH LANGUAGE PATHOLOGIST Work Phone: [facility] 11-19-2023 14:55-0500 Body height 162.6 cm Shaikh Moi GREEN Work Phone: [facility] 11-19-2023 14:55-0500 Body mass index (BMI) [Ratio] 41.2 kg/m2 Shaikh Moi GREEN Work Phone: [facility] 11-19-2023 14:55-0500 Body temperature 98.4 [degF] Shaikh Moi GREEN Work Phone: [facility] 11-19-2023 14:55-0500 Body weight 108.86 kg Shaikh Moi GREEN Work Phone: [facility] 11-19-2023 14:55-0500 Diastolic blood pressure 90 mm[Hg] Shaikh Moi GREEN Work Phone: [facility] 11-19-2023 14:55-0500 Heart rate 74 /min Shaikh Moi GREEN Work Phone: [facility] 11-19-2023 14:55-0500 SaO2% (BldA) [Mass fraction] 98 % Shaikh Moi GREEN Work Phone: [facility] 11-19-2023 14:55-0500 Systolic blood pressure 140 mm[Hg] Shaikh Moi GREEN Work Phone: [facility] 09-13-2023 14:40-0500 Body height 163.83 cm Francis Barr Other [employer] Other 09-13-2023 14:40-0500 Body mass index (BMI) [Ratio] 40.39 kg/m2 Francis Barr Other [employer] Other 09-13-2023 14:40-0500 Body weight 108.41 kg Francis Barr Other [employer] Other 08-24-2023 14:24-0500 Body temperature 98.9 [degF] MD Shaikh Prater Work Phone: [facility] 08-24-2023 14:24-0500 Diastolic blood pressure 80 mm[Hg] MD Shaikh Prater Work Phone: [facility] 08-24-2023 14:24-0500 Heart rate 84 /min MD Shaikh Prater Work Phone: [facility] 08-24-2023 14:24-0500 Respiratory rate 20 /min MD Shaikh Prater Work Phone: [facility] 08-24-2023 14:24-0500 SaO2% (BldA) [Mass fraction] 96 % MD Shaikh Prater Work Phone: [facility] 08-24-2023 14:24-0500 Systolic blood pressure 168 mm[Hg] MD Shaikh Prater Work Phone: [facility] 08-24-2023 14:22-0500 Body height 162.56 cm MD Shaikh Prater Work Phone: [facility] 08-24-2023 14:22-0500 Body weight 109.1 kg MD Shaikh Prater Work Phone: [facility] 08-02-2023 14:05-0400 Body height 163.83 cm Carmen Washington Other [employer] Other 08-02-2023 14:05-0400 Body mass index (BMI) [Ratio] 40.39 kg/m2 Carmen Washington Other [employer] Other 08-02-2023 14:05-0400 Body temperature 97.7 [degF] Carmen Washington Other [employer] Other 08-02-2023 14:05-0400 Body weight 108.41 kg Carmen Washington Other [employer] Other 08-02-2023 14:05-0400 Diastolic blood pressure 76 mm[Hg] Carmen Felix Other [employer] Other 08-02-2023 14:05-0400 Respiratory rate 18 /min Carmen Felix Other [employer] Other 08-02-2023 14:05-0400 SaO2% (BldA) [Mass fraction] 98 % Carmen Felix Other [employer] Other 08-02-2023 14:05-0400 Systolic blood pressure 120 mm[Hg] Carmen Felix Other [employer] Other 01-27-2023 10:40-0400 Body height 162.56 cm PIANO REGULATOR-BC Kristina Bullimore Work Phone: [facility] 01-27-2023 10:40-0400 Body temperature 97.6 [degF] PIANO REGULATOR-BC Kristina Bullimore Work Phone: [facility] 01-27-2023 10:40-0400 Body weight 96 kg PIANO REGULATOR-BC Kristina Bullimore Work Phone: [facility] 01-27-2023 10:40-0400 Diastolic blood pressure 87 mm[Hg] PIANO REGULATOR-BC Kristina Bullimore Work Phone: [facility] 01-27-2023 10:40-0400 Heart rate 86 /min PIANO REGULATOR-BC Kristina Bullimore Work Phone: [facility] 01-27-2023 10:40-0400 Respiratory rate 18 /min PIANO REGULATOR-BC Kristina Bullimore Work Phone: [facility] 01-27-2023 10:40-0400 SaO2% (BldA) [Mass fraction] 97 % PIANO REGULATOR-BC Kristina Bullimore Work Phone: [facility] 01-27-2023 10:40-0400 Systolic blood pressure 143 mm[Hg] PIANO REGULATOR-BC Kristina Bullimore Work Phone: [facility] 11-24-2022 10:01-0500 Body temperature 98.2 [degF] [facility] Work Phone: [facility] 11-24-2022 10:01-0500 Diastolic blood pressure 94 mm[Hg] [facility] Work Phone: [facility] 11-24-2022 10:01-0500 Heart rate 89 /min [facility] Work Phone: [facility] 11-24-2022 10:01-0500 Respiratory rate 18 /min [facility] Work Phone: [facility] 11-24-2022 10:01-0500 SaO2% (BldA) [Mass fraction] 97 % [facility] Work Phone: [facility] 11-24-2022 10:01-0500 Systolic blood pressure 140 mm[Hg] [facility] Work Phone: [facility] 11-15-2022 14:10-0500 Diastolic blood pressure 87 mm[Hg] Kb Tankha DO Work Phone: [facility] 11-15-2022 14:10-0500 Heart rate 90 /min Kb Tankha DO Work Phone: [facility] 11-15-2022 14:10-0500 Respiratory rate 18 /min Kb Tankha DO Work Phone: [facility] 11-15-2022 14:10-0500 SaO2% (BldA) [Mass fraction] 96 % Kb Tankha DO Work Phone: [facility] 11-15-2022 14:10-0500 Systolic blood pressure 121 mm[Hg] Kb Tankha DO Work Phone: [facility] 10-30-2022 09:31-0500 Body temperature 95.59 [degF] Santana Harris MD Work Phone: [facility] 10-30-2022 09:31-0500 Diastolic blood pressure 96 mm[Hg] Santana Harris MD Work Phone: [facility] 10-30-2022 09:31-0500 Heart rate 68 /min Santana Harris MD Work Phone: [facility] 10-30-2022 09:31-0500 Systolic blood pressure 144 mm[Hg] Santana Harris MD Work Phone: [facility] 10-19-2022 13:04-0500 Body height 162.6 cm Olayinka GEORGE-Tere Work Phone: [facility] 10-19-2022 13:04-0500 Body weight 92.99 kg Olayinka Boyd PA-C Work Phone: [facility] 10-19-2022 13:04-0500 Diastolic blood pressure 75 mm[Hg] Olayinka GEORGE-Tere Work Phone: [facility] 10-19-2022 13:04-0500 Heart rate 85 /min Olayinka GEORGE-C Work Phone: [facility] 10-19-2022 13:04-0500 SaO2% (BldA) [Mass fraction] 97 % Olayinka GEORGE-Tere Work Phone: [facility] 10-19-2022 13:04-0500 Systolic blood pressure 135 mm[Hg] Olayinka GEORGE-C Work Phone: [facility] 09-28-2022 12:30-0500 Body height 163.83 cm Milton Valentine II Other [employer] Other 09-28-2022 12:30-0500 Body mass index (BMI) [Ratio] 34.47 kg/m2 Milton Valentine II Other [employer] Other 09-28-2022 12:30-0500 Body weight 92.53 kg Milton Valentine II Other [employer] Other 09-26-2022 11:00-0500 Body height 163.83 cm Francis Barr Other [employer] Other 09-26-2022 11:00-0500 Body mass index (BMI) [Ratio] 34.47 kg/m2 Francismichele Barr Other [employer] Other 09-26-2022 11:00-0500 Body weight 92.53 kg Francis Barr Other [employer] Other 07-20-2022 10:45-0400 Body height 163.83 cm Nahid Olexa Other [employer] Other 07-20-2022 10:45-0400 Body mass index (BMI) [Ratio] 36.5 kg/m2 Nahid Olexa Other [employer] Other 07-20-2022 10:45-0400 Body weight 97.98 kg Nahid Olexa Other [employer] Other Encounters Encounter Date Encounter Type Care Provider Facility Start: 06-02-2025 End: 06-02-2025 ambulatory Bright Mejia Facility:[facility] [place] Start: 05-19-2025 End: 05-26-2025 Refill Jami Small ASSISTANT SPEECH LANGUAGE PATHOLOGIST Work Phone: [facility] Comment on above: Chronic pain syndrom e Chronic pain syndrom e; Chronic neck and back pain Start: 04-22-2025 End: 04-22-2025 Refill Jami Small ASSISTANT SPEECH LANGUAGE PATHOLOGIST Work Phone: [facility] Comment on above: Mixed hyperlipidemia (Primary Dx) Start: 04-17-2025 End: 04-17-2025 Clinisync Result Encounter Jami Small NP Work Phone: [facility] Unsolicited Start: 04-17-2025 End: 04-17-2025 Clinisync Result Encounter Jami Small ASSISTANT SPEECH LANGUAGE PATHOLOGIST Work Phone: [facility] External Department Unsolicited Start: 04-15-2025 End: 04-15-2025 Refill J Luis Cárdenas MD Work Phone: [facility] Comment on above: Uncontrolled type 2 diabetes mellitus with hyperglycemia (HCC) (Primary Dx) Chronic pain syndrom e Start: 04-06-2025 End: 04-06-2025 Bamboo flowsheet Jami Small ASSISTANT SPEECH LANGUAGE PATHOLOGIST Work Phone: [facility] Start: 04-06-2025 End: 04-06-2025 Bamboo flowsheet Jami Small ASSISTANT SPEECH LANGUAGE PATHOLOGIST Work Phone: [facility] Start: 04-06-2025 End: 04-06-2025 Telephone encounter Jami Small ASSISTANT SPEECH LANGUAGE PATHOLOGIST Work Phone: [facility] Start: 04-06-2025 End: 04-06-2025 Patient encounter procedure Jami Small ASSISTANT SPEECH LANGUAGE PATHOLOGIST Work Phone: [facility] Comment on above: Encounter for subseq uent annual wellness visit (AWV) in Medicare patient (Primary Dx); Chronic pain syndrome; Primary hypertension ; Uncontrolled type 2 diabetes mellitus with hyperglycemia (HCC); Prostate cancer screening; Mixed hyperlipidemia ; Iron deficiency anemia secondary to inadequate dietary iron intake; Moderate persistent asthma without complication (HCC); Colon cancer screening Start: 04-06-2025 End: 04-06-2025 ambulatory JAMI GEOVANNY Not Available Start: 03-31-2025 End: 03-31-2025 Refill Jami Geovanny ASSISTANT SPEECH LANGUAGE PATHOLOGIST Work Phone: [facility] Comment on above: Chronic neck and vick k pain Start: 03-19-2025 End: 03-19-2025 Refill Jami Aichholz ASSISTANT SPEECH LANGUAGE PATHOLOGIST Work Phone: [facility] Comment on above: Chronic pain syndrom e Type 2 diabetes donis itus without complication, without long-term current use of insulin (HCC) (Primary Dx) Start: 02-23-2025 End: 02-23-2025 Bamboo flowsheet Jami Aichholz ASSISTANT SPEECH LANGUAGE PATHOLOGIST Work Phone: [facility] Start: 02-23-2025 End: 02-23-2025 Bamboo flowsheet Jami Aichholz ASSISTANT SPEECH LANGUAGE PATHOLOGIST Work Phone: [facility] Start: 02-23-2025 End: 02-23-2025 Office outpatient visit 25 minutes Jami Geovanny ASSISTANT SPEECH LANGUAGE PATHOLOGIST Work Phone: [facility] Comment on above: Type 2 diabetes [...] Start: 02-16-2025 End: 02-17-2025 Refill Jami Aichholz ASSISTANT SPEECH LANGUAGE PATHOLOGIST Work Phone: [facility] Comment on above: Chronic pain syndrom e Start: 02-10-2025 End: 02-11-2025 Refill Jami Aichholz ASSISTANT SPEECH LANGUAGE PATHOLOGIST Work Phone: [facility] Comment on above: Type 2 diabetes donis itus without complication, without long- term current use of insulin Moderate persistent asthma without complication (CMS/HCC) Start: 01-16-2025 End: 01-16-2025 Refill Jami Aichholz ASSISTANT SPEECH LANGUAGE PATHOLOGIST Work Phone: [facility] Comment on above: Moderate persistent asthma without complication (CMS/HCC) Start: 01-15-2025 End: 01-26-2025 Refill J Luis Cárdenas MD Work Phone: [facility] Comment on above: Chronic neck and vick k pain Chronic pain syndrom e Acute cough (Primary Dx); Primary hypertension (CMS/HCC); Type 2 diabetes mellitus without complication, with long-term current use of insulin; Uncontrolled type 2 diabetes mellitus with hyperglycemia (CMS/HCC) Start: 01-12-2025 End: 01-12-2025 Refill Jami Small ASSISTANT SPEECH LANGUAGE PATHOLOGIST Work Phone: [facility] Comment on above: RLS (restless legs s yndrome) Start: 01-01-2025 End: 01-05-2025 Telephone encounter Nayana Lerma DO Work Phone: [facility] Comment on above: 01/01 pending answer from sleep lab Start: 11-27-2024 End: 05-20-2025 ambulatory Bright Mejia Facility:[facility] [place] Start: 11-27-2024 End: 01-28-2025 Recurring Bright Mejia [facility] Start: 11-26-2024 End: 11-26-2024 Bamboo flowsheet Denis Dunlap ASSISTANT SPEECH LANGUAGE PATHOLOGIST Work Phone: [facility] Start: 11-26-2024 End: 11-26-2024 Bamboo flowsheet Denis Dunlap ASSISTANT SPEECH LANGUAGE PATHOLOGIST Work Phone: [facility] Start: 11-26-2024 End: 11-26-2024 Office outpatient visit 15 minutes Denis Dunlap ASSISTANT SPEECH LANGUAGE PATHOLOGIST Work Phone: [facility] Comment on above: Primary hypertension (CMS/HCC) (Primary Dx); Moderate persistent asthma without complication (CMS/HCC); Type 2 diabetes mellitus without complication, with long-term current use of insulin (CMS/HCC); Uncontrolled type 2 diabetes mellitus with hyperglycemia (CMS/HCC) Start: 11-26-2024 End: 11-26-2024 ambulatory DENIS DUNLAP Not Available Start: 11-19-2024 End: 11-19-2024 Orders Only Denis Dunlap ASSISTANT SPEECH LANGUAGE PATHOLOGIST Work Phone: [facility] Comment on above: Chronic pain syndrom e Start: 11-18-2024 End: 11-18-2024 Orders Only Denis Dunlap ASSISTANT SPEECH LANGUAGE PATHOLOGIST Work Phone: [facility] Comment on above: Chronic pain syndrom e Start: 11-14-2024 End: 11-17-2024 Refill Denis Dunlap ASSISTANT SPEECH LANGUAGE PATHOLOGIST Work Phone: [facility] Comment on above: Chronic pain syndrom e Start: 10-27-2024 End: 10-28-2024 Refill Denis Dunlap ASSISTANT SPEECH LANGUAGE PATHOLOGIST Work Phone: [facility] Comment on above: Chronic neck and vick k pain Start: 10-21-2024 End: 10-21-2024 ambulatory Bright Mejia Facility:[facility] [place] Start: 10-21-2024 End: 10-21-2024 Patient encounter procedure Bright Mejia [facility] Start: 10-16-2024 End: 10-16-2024 Refill Denis Dunlap ASSISTANT SPEECH LANGUAGE PATHOLOGIST Work Phone: [facility] Comment on above: Chronic pain syndrom e Start: 10-13-2024 End: 10-13-2024 Refill Denis Dulnap ASSISTANT SPEECH LANGUAGE PATHOLOGIST Work Phone: [facility] Comment on above: Moderate persistent asthma without complication (CMS/HCC) Start: 09-22-2024 End: 09-22-2024 Refill Denis Dunlap ASSISTANT SPEECH LANGUAGE PATHOLOGIST Work Phone: [facility] Comment on above: Type 2 diabetes donis itus without complication, without long- term current use of insulin (CMS/HCC) Start: 09-17-2024 End: 09-17-2024 Refill Denis Dunlap ASSISTANT SPEECH LANGUAGE PATHOLOGIST Work Phone: [facility] Comment on above: Chronic pain syndrom e Start: 09-10-2024 End: 09-10-2024 Orders Only Denis Dunlap ASSISTANT SPEECH LANGUAGE PATHOLOGIST Work Phone: [facility] Comment on above: Moderate persistent asthma without complication (CMS/HCC) Start: 09-03-2024 End: 09-08-2024 Refill Denis Dunlap ASSISTANT SPEECH LANGUAGE PATHOLOGIST Work Phone: [facility] Comment on above: Moderate persistent asthma without complication (CMS/HCC) Start: 09-01-2024 End: 09-01-2024 Emergency department patient visit [facility] Start: 08-26-2024 End: 08-26-2024 Office outpatient visit 15 minutes Denis Krausetrick ASSISTANT SPEECH LANGUAGE PATHOLOGIST Work Phone: [facility] Comment on above: Type 2 diabetes donis itus without complication, without long- term current use of insulin (CMS/HCC) (Primary Dx); Iron deficiency anemia secondary to inadequate dietary iron intake; Primary hypertension (CMS/HCC) Start: 08-26-2024 End: 08-26-2024 ambulatory DENIS DUNLAP Not Available Start: 08-26-2024 End: 08-26-2024 Clinisync Result Encounter Denis Dunlap ASSISTANT SPEECH LANGUAGE PATHOLOGIST Work Phone: [facility] Unsolicited Start: 08-26-2024 End: 08-26-2024 Clinisync Result Encounter Denis Dunlap ASSISTANT SPEECH LANGUAGE PATHOLOGIST Work Phone: [facility] Unsolicited Start: 08-21-2024 End: 08-21-2024 Orders Only Denis Dunlap ASSISTANT SPEECH LANGUAGE PATHOLOGIST Work Phone: [facility] Comment on above: Anemia, unspecified type (Primary Dx) Chronic pain syndrom e Start: 08-19-2024 End: 08-19-2024 Clinisync Result Encounter Denis Dunlap ASSISTANT SPEECH LANGUAGE PATHOLOGIST Work Phone: [facility] Unsolicited Start: 08-19-2024 End: 08-19-2024 Clinisync Result Encounter Denis Dunlap ASSISTANT SPEECH LANGUAGE PATHOLOGIST Work Phone: [facility] External Department Unsolicited Start: 08-18-2024 End: 08-18-2024 Orders Only Denis Dunlap ASSISTANT SPEECH LANGUAGE PATHOLOGIST Work Phone: [facility] [facility] Comment on above: Type 2 diabetes donis itus without complication, without long- term current use of insulin (CMS/HCC) Start: 08-06-2024 End: 08-06-2024 Refill Denis Dunlap ASSISTANT SPEECH LANGUAGE PATHOLOGIST Work Phone: [facility] Comment on above: Moderate persistent asthma without complication (CMS/HCC) Start: 08-04-2024 End: 08-05-2024 Refill Chiara Dillon MA [facility] Comment on above: Moderate persistent asthma without complication (CMS/HCC) Type 2 diabetes donis itus without complication, with long-term current use of insulin (CMS/HCC); Uncontrolled type 2 diabetes mellitus with hyperglycemia (CMS/HCC); Moderate persistent asthma without complication (CMS/HCC) Start: 07-22-2024 End: 07-22-2024 Office outpatient visit 15 minutes Denis Dunlap ASSISTANT SPEECH LANGUAGE PATHOLOGIST Work Phone: [facility] Comment on above: Moderate persistent [...] 07-22-2024 End: 07-22-2024 Bamboo flowsheet Denis Dunlap ASSISTANT SPEECH LANGUAGE PATHOLOGIST Work Phone: [facility] Start: 07-22-2024 End: 07-22-2024 Bamboo flowsheet Denis Krausetrick ASSISTANT SPEECH LANGUAGE PATHOLOGIST Work Phone: [facility] Start: 07-21-2024 End: 07-28-2024 Refill Gali Chatterjee [facility] Comment on above: Chronic neck and vick k pain; Primary hypertension (CMS/HCC) Start: 07-15-2024 End: 07-15-2024 Orders Only Denis Dunlap ASSISTANT SPEECH LANGUAGE PATHOLOGIST Work Phone: [facility] Comment on [...] 2 diabetes mellitus with hyperglycemia (CMS/HCC) Start: 06-27-2024 End: 06-27-2024 Clinisync Result Encounter Denis Alcalapatrick ASSISTANT SPEECH LANGUAGE PATHOLOGIST Work Phone: [facility] External Department Unsolicited Start: 06-27-2024 End: 06-27-2024 Clinisync Result Encounter Denis Alcalapatrick ASSISTANT SPEECH LANGUAGE PATHOLOGIST Work Phone: [facility] External Department Unsolicited Start: 06-26-2024 End: 06-26-2024 Bamboo flowsheet Denis Dunlap ASSISTANT SPEECH LANGUAGE PATHOLOGIST Work Phone: [facility] Start: 06-26-2024 End: 06-26-2024 Bamboo flowsheet Denis Dunlap ASSISTANT SPEECH LANGUAGE PATHOLOGIST Work Phone: [facility] Start: 06-26-2024 End: 06-26-2024 Office outpatient visit 15 minutes Denis Dunlap ASSISTANT SPEECH LANGUAGE PATHOLOGIST Work Phone: [facility] Comment on above: Type 2 diabetes donis itus without complication, with long-term current use of insulin ([facility]) (Primary Dx); Uncontrolled type 2 diabetes mellitus with hyperglycemia ([facility]); Lumbar radiculopathy Start: 06-26-2024 End: 06-26-2024 ambulatory DENIS ALCALAPATRICK Not Available Start: 06-24-2024 End: 06-24-2024 Refill Shakeel Vargas MA [facility] Comment on above: Type 2 diabetes donis itus without complication, without long- term current use of insulin ([facility]) Start: 06-11-2024 End: 06-11-2024 Bamboo flowsheet Annie GEORGE Work Phone: [facility] [facility] [address] Start: 06-11-2024 End: 06-11-2024 Bamboo flowsheet Annie GEORGE Work Phone: [facility] [address] [address] Start: 06-11-2024 End: 06-11-2024 ambulatory ANNIE NEGRO Not Available Start: 06-11-2024 End: 06-11-2024 Office outpatient visit 25 minutes Annie GEORGE Work Phone: [facility] [employer] [address] Comment on above: Other osteoarthritis of spine, lumbar region (Primary Dx); Lumbar radiculopathy; Paresthesia; Weakness; Muscle spasm Start: 05-28-2024 End: 05-28-2024 Clinisync Result Encounter Shaikh Moi GREEN Work Phone: [facility] External Department Unsolicited Start: 05-28-2024 End: 05-28-2024 Clinisync Result Encounter Shaikh Moi GREEN Work Phone: [facility] External Department Unsolicited Start: 05-27-2024 End: 05-27-2024 Bamboo flowsheet Denis Dunlap ASSISTANT SPEECH LANGUAGE PATHOLOGIST Work Phone: [facility] Start: 05-27-2024 End: 05-27-2024 Bamboo flowsheet Denis Dunlap ASSISTANT SPEECH LANGUAGE PATHOLOGIST Work Phone: [facility] Start: 05-27-2024 End: 05-27-2024 Office outpatient visit 25 minutes Denis Dunlap ASSISTANT SPEECH LANGUAGE PATHOLOGIST Work Phone: [facility] Comment on [...] Start: 05-26-2024 End: 05-26-2024 Refill Denis Dunlap ASSISTANT SPEECH LANGUAGE PATHOLOGIST Work Phone: [facility] Comment on above: Uncontrolled type 2 diabetes mellitus with hyperglycemia (CMS/HCC) Start: 04-21-2024 End: 04-21-2024 ambulatory SHAIKH MOI Not Available Start: 04-16-2024 ambulatory ANANT CORTEZ [facility] Start: 03-05-2024 ambulatory BHAVESH JAMES [facility] Start: 03-05-2024 Encounter for other general examination BHAVESH [facility] Start: 02-19-2024 End: 02-19-[address] [facility] Start: 02-19-2024 End: 02-19-[address] [facility] Start: 11-30-2023 End: 11-30-[address] [facility] Start: 11-21-2023 End: 11-21-[address] [facility] Start: 11-19-2023 End: 11-19-2023 Office outpatient visit 25 minutes Shaikh Moi GREEN Work Phone: [facility] Comment on above: Uncontrolled type 2 diabetes mellitus with hyperglycemia (CMS/HCC) (Primary Dx); Chronic neck and back pain; Primary hypertension (CMS/HCC); Low back pain of thoracolumbar region with sciatica Start: 11-19-2023 Bamboo flowsheet Shaikh Moi GREEN [...] (Primary Dx) Start: 11-05-2023 End: 11-05-2023 ambulatory DANNIUC [facility] Start: 10-29-2023 End: 10-29-2023 ambulatory Francis Barr Other [email or web address] Other Start: 10-29-2023 Telephone encounter Francis Barr [facility] Neurosurgery Start: 09-24-2023 End: 09-24-2023 ambulatory Francis Barr Other [email or web address] Other Start: 09-24-2023 Telephone encounter Francis Barr [facility] Pain Management Start: 09-13-2023 End: 09-13-2023 ambulatory Francis Barr Other [facility] [employer] Other Start: 09-13-2023 Office outpatient vi sit 15 minutes Francis Barr [facility] Neurosurgery Start: 08-24-2023 End: 08-24-2023 Emergency department patient visit Shaikh Moi Facility:[facility] Start: 08-24-2023 End: 08-24-2023 Emergency department patient visit MD Shaikh Prater Work Phone: [facility] Work Phone: Start: 08-02-2023 End: 08-02-2023 ambulatory Carmen Washington Other [facility] [employer] Other Start: 08-02-2023 Office outpatient vi sit 15 minutes Carmen Wahsington [facility] Ur[facility] Start: 07-13-2023 End: 07-13-2023 ambulatory Shaikh Moi Facility:[facility] Start: 07-13-2023 End: 07-13-2023 Patient encounter procedure MD Shaikh rPater Work Phone: [facility] [place] Start: 07-04-2023 Refill Kb Olivo Work Phone: Neurology Pain Comment on above: Refill Request (Traz odone Rx); Refill Request; Refill Request Start: 06-21-2023 End: 06-21-2023 ambulatory Tracy Wu Facility:[facility] Start: 06-21-2023 End: 06-21-2023 ambulatory MD Shaikh Prater Work Phone: [facility] Work Phone: Start: 06-21-2023 End: 06-21-2023 Patient encounter procedure MD Shaikh Prater Work Phone: [facility] [place] Work Phone: Start: 05-21-2023 End: 05-22-2023 ambulatory Terri Abrams MD Facility: [facility] Start: 05-16-2023 End: 05-16-2023 ambulatory Shaikh Moi Facility:[facility] Start: 05-16-2023 End: 05-16-2023 ambulatory MD Shaikh Prater Work Phone: [facility] Work Phone: Start: 05-16-2023 End: 05-16-2023 Patient encounter procedure MD Shaikh Prater Work Phone: [facility] [place] Work Phone: Start: 04-16-2023 Refill [place] Kathe [...] End: 02-13-2023 ambulatory KB TANKHA Facility:[facility] Start: 02-09-2023 Telephone encounter Kb Tank yates DO Work Phone: Pain Recovery Comment on above: Patient Question Start: 02-06-2023 ambulatory Kbwaylon Lorenzo D O Work Phone: Neurology Pain Comment on above: need advice Start: 01-27-2023 End: 01-27-2023 Emergency department patient visit Shaikh Moi Facility:[facility] Start: 01-27-2023 End: 01-27-2023 Emergency department patient visit PIANO REGULATOR-BC Kristina Delgado Work Phone: [facility]-Emergency Room Work Phone: Start: 01-24-2023 End: 01-24-2023 ambulatory KB TANKHA Facility:[facility] Start: 12-28-2022 End: 12-28-2022 [facility] Castellanos Therapist Work Phone: Pain Recovery Comment on above: 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 Start: 11-28-2022 ambulatory Kb Lorenzo D O Work Phone: Neurology Pain Comment on above: Bhavesh Cárdenas Injec tion schedule Start: 11-24-2022 ambulatory KB LORENZO Facility:[facility] Start: 11-24-2022 End: 11-24-2022 Patient encounter procedure Spine Med Procedure Main Work Phone: Spine [place] Comment on above: APPOINTMENT CANCELLE D (Primary Dx) Start: 11-15-2022 End: 11-15-2022 ambulatory OLAYINKA BOYD Facility:[facility] Start: 11-15-2022 End: 11-15-2022 Patient encounter procedure Kb Lorenzo DO Work Phone: Neurology Pain Comment on above: Chronic pain syndrom e (Primary Dx); Chronic bilateral low back pain without sciatica; Disturbance of sleep pattern associated with pain; Lumbar spondylosis; Sacroiliitis (HCC) Start: 10-30-2022 End: 10-31-2022 ambulatory SANTANA HARRIS Facility:[facility] Start: 10-30-2022 End: 10-30-2022 Subsequent hospital [...] Start: 10-19-2022 End: 10-19-2022 ambulatory OLAYINKA BOYD Facility:[facility] Start: 10-19-2022 End: 10-19-2022 Patient encounter procedure Olayinka Boyd PA-C Work Phone: Spine Medicine Comment on above: Chronic bilateral lo w back pain without sciatica (Primary Dx) Start: 10-16-2022 End: 10-16-2022 ambulatory Milton Valentine II Other [email or web address] Other Start: 10-16-2022 Telephone encounter Milton Valentine II [facility] 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 Start: 09-28-2022 FQHC visit new patient Milton velazquez II [facility] Start: 09-28-2022 End: 09-28-2022 ambulatory MD Carmen Wheatley Work Phone: [facility] Work Phone: Start: 09-28-2022 End: 09-28-2022 Patient encounter procedure MD Carmen Wheatley Work Phone: [facility] Start: 09-26-2022 End: 09-26-2022 ambulatory Francis Barr Other [employer] Other Start: 09-26-2022 Office outpatient ne w 30 minutes Francis Barr [facility] Neurosurgery Start: 08-18-2022 End: 08-19-2022 ambulatory MEYER H FAWWAD Facility:[facility] Start: 08-14-2022 End: 08-15-2022 ambulatory MEYER H FAWWAD Facility:[facility] Start: 08-10-2022 End: 08-11-2022 ambulatory MEYER H FAWWAD Facility:[facility] Start: 07-20-2022 End: 07-20-2022 ambulatory Nahid Olexa Other [employer] Other Start: 07-20-2022 Office outpatient ne w 30 minutes Nahid Olexa [facility] Start: 07-13-2022 End: 07-13-2022 ambulatory ARCELIA DIAZ . Facility:[facility] Procedures Date Procedure Procedure Detail Performing Clinician Start: 04-17-2025 ALL CBC WITH AUTO DIFF Jami Small ASSISTANT SPEECH LANGUAGE PATHOLOGIST Work Phone: Start: 02-23-2025 Hemoglobin glycosyla trinh a1c Jami Aichkarstenz ASSISTANT SPEECH LANGUAGE PATHOLOGIST Work Phone: Start: 08-26-2024 [employer] Homa charli Dunlap ASSISTANT SPEECH LANGUAGE PATHOLOGIST Work Phone: Start: 08-19-2024 ALL CBC WITH AUTO DIFF Denis Dunlap ASSISTANT SPEECH LANGUAGE PATHOLOGIST Work Phone: Start: 08-19-2024 [facility] CMP (CMP) (FOR [facility] USE) Denis Dunlap ASSISTANT SPEECH LANGUAGE PATHOLOGIST Work Phone: Start: 08-19-2024 MLR HEMOGLOBIN A1C Brit holley Dunlap ASSISTANT SPEECH LANGUAGE PATHOLOGIST Work Phone: Start: 06-27-2024 [facility] MICROALB CREAT R ATIO RANDOM Denis Dunlap ASSISTANT SPEECH LANGUAGE PATHOLOGIST Work Phone: Start: 05-28-2024 ALL CBC WITH [...] lumbar spin e, four or more views PIANO REGULATOR-BC Kristina Trungimore Work Phone: Start: 11-24-2022 Gluc bld gluc mntr d ev cleared fda spec home use [facility] Provider Start: 10-30-2022 Joint survey single view 2 or more joints Santana Harris MD Work Phone: Start: 09-28-2022 Plain X-ray of right hip MD Carmen Wheatley Work Phone: Plan of Treatment Date Care Activity Detail Author Start: 04-07-2027 Glaucoma screening Diabetes: Retinopathy Screening [facility] Start: 04-17-2026 Urine screening for protein Diabetes: Urine Protein Screening [facility] Start: 04-06-2026 Medicare Annual Wellness (AWV) Medicare Annual Wellness (AWV) [facility] Start: 10-30-2025 DIABETES SCREEN DIABETES SCREEN [facility] Start: 10-30-2025 Diabetes Screening Diabetes Screening [facility] Start: 09-07-2025 Screening for malignant neoplasm of colon [facility] Start: 08-26-2025 Hemoglobin A1c measurement Diabetes: Hemoglobin A1C [facility] Start: 06-27-2025 Urine screening for protein Diabetes: Urine Protein Screening [facility] Start: 06-23-2025 End: 04-22-2026 Alanine aminotransferase [Enzymatic activity/volume] in Serum or Plasma ALT Lab Routine Mixed hyperlipidemia Expected: 06/23/2025 (Approximate), Expires: 04/22/2026 [facility] Work Phone: Comment on above: Expected: 06/23/2025 (Approximate), Expi res: 04/22/2026 Start: 06-23-2025 End: 04-22-2026 Aspartate aminotransferase [Enzymatic activity/volume] in Serum or Plasma AST Lab Routine Mixed hyperlipidemia Expected: 06/23/2025 (Approximate), Expires: 04/22/2026 [facility] Comment on above: Expected: 06/23/2025 (Approximate), Expi res: 04/22/2026 Start: 06-23-2025 End: 04-22-2026 Lipid 1996 panel - Serum or Plasma Lipid panel Lab Routine Mixed hyperlipidemia Expected: 06/23/2025 (Approximate), Expires: 04/22/2026 [facility] Comment on above: Expected: 06/23/2025 (Approximate), Expi res: 04/22/2026 Start: 06-10-2025 End: 06-10-2025 Patient encounter procedure [facility] [address] [facility] Start: 06-09-2025 End: 06-09-2025 Patient encounter procedure [facility] Start: 06-08-2025 Influenza vaccination Influenza Vaccine (#1) [facility] Start: 04-06-2025 End: 04-06-2026 CBC W Auto Differential panel - Blood CBC and differential Lab Routine Iron deficiency anemia secondary to inadequate dietary iron intake Expected: 04/06/2025 (Approximate), Expires: 04/06/2026 [facility] Work Phone: Comment on above: Expected: 04/06/2025 (Approximate), Expi res: 04/06/2026 Start: 04-06-2025 End: 04-06-2026 Comprehensive metabolic 2000 panel - Serum or Plasma Comprehensive metabolic panel Lab Routine Primary hypertension Uncontrolled type 2 diabetes mellitus with hyperglycemia (HCC) Mixed hyperlipidemia Expected: 04/06/2025 (Approximate), Expires: 04/06/2026 [facility] Comment on above: Expected: 04/06/2025 (Approximate), Expi res: 04/06/2026 Start: 04-06-2025 End: 04-06-2026 Ferritin [Mass/volume] in Serum or Plasma Ferritin Lab Routine Iron deficiency anemia secondary to inadequate dietary iron intake Expected: 04/06/2025 (Approximate), Expires: 04/06/2026 [facility] Comment on above: Expected: 04/06/2025 (Approximate), Expi res: 04/06/2026 Start: 04-06-2025 End: 04-06-2026 Iron + transferrin + TIBC Iron + transferrin + TIBC Lab Routine Iron deficiency anemia secondary to inadequate dietary iron intake Expected: 04/06/2025 (Approximate), Expires: 04/06/2026 [facility] Comment on above: Expected: 04/06/2025 (Approximate), Expi res: 04/06/2026 Start: 04-06-2025 End: 04-06-2026 Lipid 1996 panel - Serum or Plasma Lipid panel Lab Routine Uncontrolled type 2 diabetes mellitus with hyperglycemia (HCC) Mixed hyperlipidemia Expected: 04/06/2025 (Approximate), Expires: 04/06/2026 [facility] Comment on above: Expected: 04/06/2025 (Approximate), Expi res: 04/06/2026 Start: 04-06-2025 End: 04-06-2026 Microalbumin/Creatinine panel in random Urine Microalbumin / creatinine, urine ratio Lab Routine Primary hypertension Uncontrolled type 2 diabetes mellitus with hyperglycemia (HCC) Expected: 04/06/2025 (Approximate), Expires: 04/06/2026 [facility] Comment on above: Expected: 04/06/2025 (Approximate), Expi res: 04/06/2026 Start: 04-06-2025 End: 04-06-2026 Noninvasive colorectal cancer DNA and occult blood screening [Presence] in Stool Cologuard colon cancer screening Lab Routine Colon cancer screening Expected: 04/06/2025 (Approximate), Expires: 04/06/2026 [facility] Comment on above: Expected: 04/06/2025 (Approximate), Expi res: 04/06/2026 Start: 04-06-2025 End: 04-06-2026 Prostate specific Ag [Mass/volume] in Serum or Plasma PSA Lab Routine Prostate cancer screening Expected: 04/06/2025 (Approximate), Expires: 04/06/2026 [facility] Comment on above: Expected: 04/06/2025 (Approximate), Expi res: 04/06/2026 Start: 04-06-2025 End: 04-06-2026 Urinalysis complete panel - Urine Urinalysis with reflex microscopic (clean catch) Lab Routine Primary hypertension Uncontrolled type 2 diabetes mellitus with hyperglycemia (HCC) Expected: 04/06/2025 (Approximate), Expires: 04/06/2026 [facility] Comment on above: Expected: 04/06/2025 (Approximate), Expi res: 04/06/2026 Start: 04-06-2025 End: 04-06-2025 Patient encounter procedure [facility] Comment on above: Chronic pain syndrome (Primary Dx); Encounter for subsequent annual wellness visit (AWV) in Medicare patient; Primary hypertension ; Uncontrolled type 2 diabetes mellitus with hyperglycemia (HCC); Prostate cancer screening; Mixed hyperlipidemia ; Iron deficiency anemia secondary to inadequate dietary iron intake Start: 02-27-2025 Glaucoma screening Diabetes: Retinopathy Screening [facility] Start: 02-23-2025 End: 02-23-2025 Patient encounter procedure [facility] Comment on above: Chronic pain syndrome (Primary Dx); Primary hypertension (CMS/HCC); Type 2 diabetes mellitus without complication, without long-term current use of insulin; Class 3 severe obesity due to excess calories with serious comorbidity and body mass index (BMI) of 40.0 to 44.9 in adult; Moderate episode of recurrent major depressive disorder ([facility]/HCC) Start: 11-26-2024 End: 11-26-2024 Patient encounter procedure [facility] Comment on above: Arrived Start: 11-12-2024 Urine screening for protein Diabetes: Urine Protein Screening [facility] Start: 09-11-2024 End: 09-11-2024 Patient encounter procedure 09/11/2024 8:30 AM EST Office Visit [facility] [address] [place] [address] Denis Dunlap, SUSIE [address] [place] [address] [facility] Start: 08-26-2024 End: 08-26-2024 Patient encounter procedure 08/26/2024 2:30 PM EST Office Visit [facility] [address] [place] [phone] Denis Dunlap NP [address] [place] [phone] [facility] Start: 08-21-2024 End: 08-21-2025 Cobalamin (Vitamin B12) [Mass/volume] in Serum or Plasma Vitamin B12 Lab Routine Anemia, unspecified type Expected: 08/21/2024 (Approximate), Expires: 08/21/2025 [facility] Work Phone: Comment on above: Expected: 08/21/2024 (Approximate), Expi res: 08/21/2025 Start: 08-21-2024 End: 08-21-2025 Ferritin [Mass/volume] in Serum or Plasma Ferritin Lab Routine Anemia, unspecified type Expected: 08/21/2024 (Approximate), Expires: 08/21/2025 [facility] Comment on above: Expected: 08/21/2024 (Approximate), Expi res: 08/21/2025 Start: 08-21-2024 End: 08-21-2025 Iron + transferrin + TIBC Iron + transferrin + TIBC Lab Routine Anemia, unspecified type Expected: 08/21/2024 (Approximate), Expires: 08/21/2025 [facility] Comment on above: Expected: 08/21/2024 (Approximate), Expi res: 08/21/2025 Start: 08-21-2024 End: 08-21-2025 Measurement of occult blood in single stool specimen Occult blood x 1, stool Lab Routine Anemia, unspecified type Expected: 08/21/2024 (Approximate), Expires: 08/21/2025 [facility] Comment on above: Expected: 08/21/2024 (Approximate), Expi res: 08/21/2025 Start: 08-18-2024 End: 06-26-2025 CBC W Auto Differential panel - Blood CBC and differential Lab Routine Type 2 diabetes mellitus without complication, with long-term current use of insulin (CMS/HCC) Uncontrolled type 2 diabetes mellitus with hyperglycemia (CMS/HCC) Expected: 08/18/2024 (Approximate), Expires: 06/26/2025 [facility] Comment on above: Expected: 08/18/2024 (Approximate), Expi res: 06/26/2025 Start: 08-18-2024 End: 06-26-2025 Comprehensive metabolic 2000 panel - Serum or Plasma Comprehensive metabolic panel Lab Routine Type 2 diabetes mellitus without complication, with long-term current use of insulin (CMS/HCC) Uncontrolled type 2 diabetes mellitus with hyperglycemia (CMS/HCC) Expected: 08/18/2024 (Approximate), Expires: 06/26/2025 [facility] Comment on above: Expected: 08/18/2024 (Approximate), Expi res: 06/26/2025 Start: 08-18-2024 End: 06-26-2025 Hemoglobin A1c/Hemoglobin.total in Blood Hemoglobin A1c Lab Routine Type 2 diabetes mellitus without complication, with long-term current use of insulin (CMS/HCC) Uncontrolled type 2 diabetes mellitus with hyperglycemia (CMS/HCC) Expected: 08/18/2024 (Approximate), Expires: 06/26/2025 [facility] Comment on above: Expected: 08/18/2024 (Approximate), Expi res: 06/26/2025 Start: 07-22-2024 End: 07-22-2024 Patient encounter procedure [facility] Comment on above: Arrived Start: 07-22-2024 End: 07-22-2025 Lipid 1996 panel - Serum or Plasma Lipid panel Lab Routine Mixed hyperlipidemia (CMS/HCC) Expected: 07/22/2024 (Approximate), Expires: 07/22/2025 [facility] Comment on above: Expected: 07/22/2024 (Approximate), Expi res: 07/22/2025 Start: 07-22-2024 End: 07-22-2025 TSH W/REFLEX TO FT4 TSH W/REFLEX TO FT4 Lab Routine Mixed hyperlipidemia (CMS/HCC) Expected: 07/22/2024 (Approximate), Expires: 07/22/2025 [facility] Work Phone: Comment on above: Expected: 07/22/2024 (Approximate), Expi res: 07/22/2025 Start: 06-26-2024 End: 06-26-2024 Patient encounter procedure [facility] Comment on above: Arrived Start: 06-11-2024 End: 06-11-2024 Patient encounter procedure 06/11/2024 12:40 PM EDT Office Visit [facility] [address] [place] [phone] Annie Negro PA [address] [place], [place] [id number] [facility] Start: 06-08-2024 Influenza vaccination Influenza Vaccine (#1) [facility] Start: 05-27-2024 End: 05-27-2025 Drugs of abuse panel - Urine by Screen method Rapid drug screen, urine Lab Routine Encounter for monitoring opioid maintenance therapy Expected: 05/27/2024 (Approximate), Expires: 05/27/2025 [facility] Work Phone: Comment on above: Expected: 05/27/2024 (Approximate), Expi res: 05/27/2025 Start: 05-27-2024 End: 05-27-2024 Patient encounter procedure [facility] Comment on above: Arrived Start: 05-12-2024 Hemoglobin A1c measurement Diabetes: Hemoglobin A1C [facility] Start: 02-16-2024 DIABETES SCREEN DIABETES SCREEN [facility] Start: 12-17-2023 End: 12-17-2023 Patient encounter procedure 12/17/2023 2:30 PM EDT Office Visit [facility] [address] [place] [phone] Shaikh Prater MD [address] [place] [phone] [facility] Start: 11-19-2023 End: 11-19-2023 Patient encounter procedure 11/19/2023 2:45 PM EST Office Visit [facility] [address] [place] [id number] Shaikh Prater MD [address] [place] [address] [facility] Start: 11-15-2023 End: 11-15-2024 Lipid 1996 panel - Serum or Plasma Lipid panel Lab Routine Metabolic syndrome X Pure hypertriglyceridemia ([facility]/HCC) Expected: 11/15/2023 (Approximate), Expires: 11/15/2024 [facility] Work Phone: Comment on above: Expected: 11/15/2023 (Approximate), Expi res: 11/15/2024 Start: 10-08-2023 Hemoglobin A1c measurement Diabetes: Hemoglobin A1C [facility] Start: 06-21-2023 MR lumbar spine wo con MR lumbar spine wo con [facility] Start: 06-21-2023 MR Lumbar spine WO contrast [facility] Start: 06-08-2023 Influenza vaccination [facility] Start: 10-30-2022 End: 12-30-2022 MIKAYLA BY IFA WITH REFLEX [facility] Work Phone: Comment on above: Expected: 10/30/2022, Expires: Start: 10-30-2022 End: 12-30-2022 Cyclic citrullinated peptide IgG Ab [Units/volume] in Serum or Plasma [facility] Work Phone: Comment on above: Expected: 10/30/2022, Expires: 3 Start: 10-30-2022 End: 12-30-2022 Erythrocyte sedimentation rate [facility] Work Phone: Comment on above: Expected: 10/30/2022, Expires: 3 Start: 10-08-2022 DEPRESSION ASSESSMENT DEPRESSION ASSESSMENT [facility] Start: 06-08-2022 Influenza vaccination INFLUENZA (#1) [facility] Start: 12-14-2021 Urine screening for protein Diabetes: Urine Protein Screening [facility] Start: 04-08-2021 COVID-19 VACCINE (3 - Booster for Pfizer series) COVID-19 VACCINE (3 - Booster for Pfizer series) [facility] Start: 04-08-2021 COVID-19 VACCINE (3 - Pfizer series) COVID-19 VACCINE (3 - Pfizer series) [facility] Start: 02-11-2021 COVID-19 VACCINE (2 - Pfizer series) COVID-19 VACCINE (2 - Pfizer series) [facility] Start: 01-04-2020 Urine microalbumin profile [facility] Start: 2018 COLOGUARD (FIT-DNA) COLOGUARD (FIT-DNA) [facility] Start: 2018 Colonoscopy COLONOSCOPY [facility] Start: 2018 COLORECTAL CANCER SCREENING COLORECTAL CANCER SCREENING [facility] Start: [address] COLONOGRAPHY [facility] Start: 2018 FECAL OCCULT BLOOD FECAL OCCULT BLOOD [facility] Start: 2018 SIGMOIDOSCOPY SIGMOIDOSCOPY [facility] Start: 01-04-2010 Urine microalbumin profile DTAP,TDAP,TD (1 - Tdap) [facility] Start: 2008 Lipid 1996 panel - Serum or Plasma Lipid Screening [facility] Start: 2008 LIPID SCREEN LIPID SCREEN [facility] Start: 1992 Urine microalbumin profile DTAP,TDAP,TD (1 - Tdap) [facility] Start: 1991 HEPATITIS C SCREENING HEPATITIS C SCREENING [facility] Start: 1991 HIV SCREENING HIV SCREENING [facility] Start: 1973 HEPATITIS B (1 of 3 - 3-dose series) HEPATITIS B (1 of 3 - 3-dose series) [facility] Start: 1973 Hepatitis B Vaccine (1 of 3 - 3-dose series) Hepatitis B Vaccine (1 of 3 - 3-dose series) [facility] Start: 1973 Medicare Annual Wellness (AWV) Medicare Annual Wellness (AWV) [facility] Start: 1973 Screening for malignant neoplasm of colon [facility] Microalbumin/Creatin ine panel in random Urine Microalbumin / creatinine urine ratio Lab Routine Type 2 diabetes mellitus without complication, with long-term current use of insulin (CMS/HCC) Uncontrolled type 2 diabetes mellitus with hyperglycemia (CMS/HCC) Ordered: 06/26/2024 [facility] Work Phone: Comment on above: Ordered: 06/26/2024 Patient Education [facility] Work Phone: Patient referral [facility] Work Phone: SPINE INTERVENTION PROCEDURE SPINE INTERVENTION PROCEDURE Procedures Routine Sacroiliitis (HCC) Ordered: 11/15/2022 [facility] Work Phone: Comment on above: Ordered: 11/15/2022 [facility] Immunizations Immunization Date Immunization Notes Care Provider [facility] 06-17-2024 influenza, injectabl e, madin ingrid canine kidney, preservative free Jami Aichholz ASSISTANT SPEECH LANGUAGE PATHOLOGIST Work Phone: [facility] 06-17-2024 influenza virus vaccine, unspecified formulation J Luis Cárdenas MD Work Phone: [facility] 05-15-2024 influenza, seasonal, injectable Shakeel Vargas MA [facility] 12-14-2023 zoster vaccine recombinant Jami Aichholz ASSISTANT SPEECH LANGUAGE PATHOLOGIST Work Phone: [facility] 11-09-2023 zoster vaccine recombinant Jami Aichholz ASSISTANT SPEECH LANGUAGE PATHOLOGIST Work Phone: [facility] 07-13-2023 SARS-COV-2 (COVID-19 ) vaccine, mRNA, spike protein, LNP, PF, 50 mcg/0.5 mL Shaikh Moi GREEN Work Phone: [facility] 06-27-2023 Influenza, injectabl e, Madin Ingrid Canine Kidney, preservative free, quadrivalent Shaikh Moi GREEN Work Phone: [facility] 06-27-2023 influenza virus vaccine, unspecified formulation Denis Dunlap ASSISTANT SPEECH LANGUAGE PATHOLOGIST Work Phone: [facility] 02-11-2021 COVID-19 original vaccine, age 12+ yr, monovalent (PFIZER-BIONTECH - PURPLE TOP) Santana Harris MD Work Phone: [facility] 01-21-2021 COVID-19 original vaccine, age 12+ yr, monovalent (PFIZER-BIONTECH - PURPLE TOP) Santana Harris MD Work Phone: [facility] 07-07-2020 influenza, injectabl e, quadrivalent, preservative free Santana Harris MD Work Phone: [facility] 07-07-2020 influenza virus vaccine, unspecified formulation Kb Lorenzo DO Work Phone: [facility] 09-29-2019 influenza, injectabl e, quadrivalent, contains preservative Shaikh Moi GREEN Work Phone: [facility] 08-13-2019 influenza, injectabl e, quadrivalent, contains preservative Shaikh Moi GREEN Work Phone: [facility] Comment on above: Early/Late Reason: O ther : Flu shot given prior to date 08-24-2017 influenza, injectabl e, quadrivalent, preservative free Santana Harris MD Work Phone: [facility] 07-07-2016 influenza, injectabl e, quadrivalent, preservative free Santana Harris MD Work Phone: [facility] 07-02-2015 influenza, injectabl e, quadrivalent, preservative free Santana Harris MD Work Phone: [facility] 07-02-2015 influenza, seasonal, injectable, preservative free Shaikh Moi GREEN Work Phone: [facility] 08-05-2014 influenza, seasonal, injectable, preservative free Santana Harris MD Work Phone: [facility] 07-18-2013 influenza, seasonal, injectable, preservative free Santana Harris MD Work Phone: [facility] 07-18-2013 seasonal influenza, intradermal, preservative free Shaikh Moi GREEN Work Phone: [facility] 07-05-2012 influenza, seasonal, injectable, preservative free Shaikh Moi GREEN Work Phone: [facility] 09-04-2011 influenza virus vaccine, whole virus Shaikh Moi GREEN Work Phone: [facility] 07-07-2010 influenza virus vaccine, whole virus Shaikh Moi GREEN Work Phone: [facility] 01-03-2010 diphtheria, tetanus toxoids and pertussis vaccine Shaikh Moi GREEN Work Phone: [facility] 01-03-2010 tetanus and diphther ia toxoids, adsorbed, preservative free, for adult use (5 Lf of tetanus toxoid and 2 Lf of diphtheria toxoid) Santana Harris MD Work Phone: [facility] 01-03-2010 tetanus toxoid, redu los diphtheria toxoid, and acellular pertussis vaccine, adsorbed Santana Harris MD Work Phone: [facility] Payers Date Payer Category Payer Unknown [id number] 2024 Worker's Compensation [employer] [id number] 2024 Medicare [id number] 2023 Medicaid [id number] 2023 Self-pay [id number] 2022 Private Health Insurance [id number] 2022 Medicaid [id number] 1973 Unknown [id number] 2.16.840.1.146451.3.579.2 .593 1973 Unknown [id number] 2.16.840.1.138200.3.579.2 .593 1973 Unknown [id number] 2.16.840.1.435718.3.579.2 .593 1973 Unknown [id number] 2.16.840.1.528562.3.579.2 .593 1973 Unknown [id number] 2.16.840.1.868617.3.579.2 .593 1973 Unknown [id number] 2.16.840.1.547529.3.579.2 .593 1973 Unknown [id number] 2.16.840.1.564528.3.579.2 .593 1973 Unknown [id number] 2.16.840.1.139407.3.579.2 .196 1973 Unknown [id number] 2.16.840.1.288301.3.579.2 .1258 1973 Unknown [id number] 2.16.840.1.508503.3.579.2 .1258 1973 Unknown [id number] 2.16.840.1.113387.3.579.2 .1258 1973 Unknown [id number] 2.16.840.1.559955.3.579.2 .1258 1973 Unknown [id number] 2.16.840.1.843854.3.579.2 .1258 1973 Unknown [id number] 2.16.840.1.123049.3.579.2 .1258 1973 Unknown [id number] 2.16.840.1.068612.3.579.2 .1258 1973 Unknown [id number] 2.16.840.1.510250.3.579.2 .1258 1973 Unknown [id number] 2.16.840.1.915166.3.579.2 .1258 1973 Unknown [id number] 2.16.840.1.751350.3.579.2 .1973 Unknown [id number] 2.16.840.1.801399.3.579.2 .1973 Unknown [id number] 2.16.840.1.176522.3.579.2 .1973 Unknown [id number] 2.16.840.1.574739.3.579.2 .1959 Medicaid [id number] Unknown MMO [id number] Unknown [employer] BC/BS [id number] Unknown [id number] 2.16840.1.587316.3.579.2 .531 Unknown [id number] 2.16840.1.040551.3.579.2 .531 Unknown [id number] 2.16840.1.911929.3.579.2 .531 Unknown [id number] 2.16840.1.159558.3.579.2 .531 Unknown [id number] 2.16840.1.227821.3.579.2 .531 Social History Date Type Detail Facility Unknown if ever smoked [employer] Other Start: 11-15-2022 End: 04-06-2025 Sex Assigned At [facility] Start: 1975 Sex Assigned At Male F [facility] Start: 10-19-2022 End: 11-19-2023 [facility] Never smoked tobacco [facility] Start: 10-19-2022 End: 06-26-2024 Tobacco use and exposure Smokeless tobacco non-user [facility] Start: 1975 Sex Assigned At Not on file C [facility] Start: 01-27-2023 End: 06-26-2024 Tobacco smoking [facility] Ex-smoker (finding) [facility] Start: 11-15-2022 End: 04-06-2025 History of Social function [facility] Adult Depression Screening Assessment 2 [facility] Start: 10-16-2023 End: 05-27-2024 Alcohol intake Lifetime non-drinker (finding) [facility] Are you now , , , , never or living with a partner? Refused [facility] Start: 09-17-2023 Alcohol Comment caffeine: 1-2 cups per day [facility] History of tobacco use Current smoker [facility] History of tobacco use Cigarette Smoker [facility] Start: 06-26-2024 End: 04-06-2025 Alcoholic beverage intake [...] or more drinks on 1 occasion? Never [facility] Start: 06-10-2024 Alcohol Comment caffeine: 3-4 cups per day [facility] Tobacco smoking status [facility] Start: 01-19-2010 Sex Male (finding) [facility] NEGATED: Highlighted rowStart: NINF History of tobacco use Passive smoker [facility] Medical Equipment Procedure Code Equipment Code Equipment Origin al Text Equipment Identifier Dates Use as instructed [id number] Start: 11-19-2023 End: 11-18-2024 Functional Status Date Assessment Result Facility 04-06-2025 Patient Health Questionnaire 2 item (PHQ-2) [Reported] [facility] 04-06-2025 How difficult have t hese problems made it for you to do your work, take care of things at home, or get along with other people? Not difficult at all 04/06/2025 10:16 AM EDT GALI LALRED Not difficult at all [facility] 09-01-2024 Functional Status N/A [facility] Clinical Notes 08-08-2021 to 04-06-2025 Telephone Encounter - Jami Small NP - 04/06/2025 10:53 AM EDTTelephone Encounter - Jami Small NP - 04/06/2025 10:53 AM HARINDERTLlydia Small NP - 04/06/2025 10:52 AM EDTPatient Instructions Note Date & Type Note Facility 04-06-2025 Telephone encounter Note Please call [facility] to see if we can get a copy of last eye exam in 2023 [facility] 04-06-2025 Miscellaneous Notes Please call [facility] to see if we can get a copy of last eye exam in 2023 documented in this encounter [facility] 04-06-2025 History of Presen t illness Narrative [...] Rinse mouth after use Continuous Glucose Sensor (Jobstercom G7 Sensor) misc 1 each, Other, Daily, [...] prn, lyrica OARRS reveiwed Med agreement: 02/23/2025 With losing weight, [...] in carbohydrates, and simple sugars. Current meds: metforminjimenez A1c: 9.7 on 02/23/25 CGM numbers are improving Fu in 2months Associated Problem(s): Class 2 severe obesity due to excess calories with serious comorbidity in adult ([facility]-HCC) Discussed with patient their BMI (actual, verses [...] do more physically documented in this encounter [facility] 02-23-2025 History of Presen t illness Narrative [...] compliance problems. There is no history of CAD/CO, heart failure or PVD. Diabetes He presents [...] Rinse mouth after use Continuous Glucose Sensor (Triggertrap G7 Sensor) [facility] APPLY 1 SENSOR CONTINUOUSLY DIRECTED metFORMIN (GLUCOPHAGE) [...] History: Diagnosis Date Asthma Asthma, moderate persistent ([facility]) DDD (degenerative disc disease), lumbar Depression, major ([facility]) Doing well with Cymbalta. DM (diabetes mellitus) ([facility]) Using Metformin, glipizide and Trulicity Reviewed FSBS - ranging from 100-150 now No hypoglycemia. A1C 04/29 --> 7.5 Improved from >11 HLD (hyperlipidemia) ([facility]) Insomnia Obstructive sleep apnea, adult Prior hx of JUNG, not using CPAP. Can't recall how long ago was that Osteoarthritis Poorly controlled type 2 diabetes mellitus ([facility]) Poorly controlled. Previously, he has been very [...] Med agreement: 02/23/2025 documented in this encounter [facility] 02-23-2025 Instructions Jami Small NP - 02/23/2025 2:00 PM EDT Increase mounjaro to 7.5mg weekly documented in this encounter [facility] 01-26-2025 Telephone encounter Note Patient is also asking if you can call something in for him for a cough that he can't get rid of. He is not coughing up anything, but feels like he needs to. Patient is also asking for a refill on his Amlodipine to [facility] in [place] please. JN [facility] 01-26-2025 Miscellaneous Notes Patient is also asking if you can call something in for him for a cough that he can't get rid of. He is not coughing up anything, but feels like he needs to. Patient is also asking for a refill on his Amlodipine to [facility] in [place] please. JN documented in this encounter [facility] 01-12-2025 Telephone encounter Note Patient is wanting the Symbicort called in, but he said it is going to be a different brand and has not been called in yet, but says it should be ready to be called in? I wasn't sure which medication that is. He does want the Ropinirole called in. IVETTE [facility] 01-12-2025 Miscellaneous Notes Patient is wanting the Symbicort called in, but he said it is going to be a different brand and has not been called in yet, but says it should be ready to be called in? I wasn't sure which medication that is. He does want the Ropinirole called in. IVETTE documented in this encounter [facility] 01-01-2025 Telephone encounter Note Message sent to Bhavya at the sleep lab to see if he is a patient there and they handle this. [facility] 01-01-2025 Miscellaneous Notes Message sent to Bhavya at the sleep lab to see if he is a patient there and they handle this. Spoke with a outside energy sales representatives from [facility] about this patient. He has new insurance and per the [employer], he has to be seen to get his PAP supplies. Domitila said that he is a mutual patient with us, but is only seen by for is back issues. I spoke with patient and he said that he is seen at [facility] sleep lab and that he has an appt on the . When I was speaking with Domitila, they said that he informed them that he would be seeing them (Domitila) On the . They also said that he has not been the most friendly with them. Do we know if he is seen at the sleep lab? documented in this encounter [facility] 01-01-2025 Telephone encounter Note Spoke with a outside energy sales representatives from [facility] about this patient. He has new insurance and per the [employer], he has to be seen to get his PAP supplies. Domitila said that he is a mutual patient with us, but is only seen by for is back issues. I spoke with patient and he said that he is seen at [facility] sleep lab and that he has an appt on the . When I was speaking with Domitila, they said that he informed them that he would be seeing them (Domitila) On the . They also said that he has not been the most friendly with them. Do we know if he is seen at the sleep lab? [facility] 11-26-2024 History of Presen t illness Narrative [...] 120 and 130 Checks BG levels using: Triggertrap Continuous BG monitor, No medication adverse effects [...] to next visit. documented in this encounter [facility] 11-26-2024 Instructions Denis Dunlap NP - 11/26/2024 [...] and simple sugars. documented in this encounter [facility] 11-19-2024 History of Presen t illness Narrative Pt [facility] Oxycodone RX canceled at [facility]. Resent to [employer] [place], [place]. documented in this encounter [facility] 11-18-2024 History of Presen t illness Narrative [facility] was out of patients needed quantity of Oxycodone. RX canceled at [facility]. New RX sent to [facility] in [place]. documented in this encounter [facility] 09-01-2024 Hospital Discharg e instructions Patient Education [...] pull them backward. Do not sit or historic site administrator one place for too long. Take brief [...] to your body. ?Avoid twisting. Medicines Take tjpe-qkn-izvuydf and prescription medicines only as told by [...] keep your pee (urine) pale yellow. ?Take yqwx-xmr-zmkkcxl or prescription medicines. ?Eat foods that are [...] provider. Document Revised: 05/14/2023 Document Reviewed: 05/14/2023 [employer] Patient Education 2023 AMT ([employer]). 09/01/2024 15:03:34 Acute Back Pain, Adult Acute [...] home: Managing pain, stiffness, and swelling Take ngfw-ecg-epywokr and prescription medicines only as told by [...] each day. Do not sit, drive, or historic site administrator one place for more than 30 minutes [...] put less stress on your back. Take desj-exo-uvxmpfu and prescription medicines only as told by your health care provider, and apply heat or ice as told. This information is not intended to replace advice given to you by your health care provider. Make sure you discuss any questions you have with your health care provider. Document Revised: 12/16/2021 Document Reviewed: 12/16/2021 [employer] Patient Education 2023 AMT ([employer]). Follow Up Care 09/01/2024 10:11:34 With:Bright Mejia Address: [address] [place] [address], [address] [place] [address]- [phone] Business (1) When:09/04/2024 14:49:08 Comments:Call Dr for diagnosis based follow up With:Francis Barr Address: [address] [place] [address]- Business (1) When:09/04/2024 14:48:55 Comments:Call Dr for diagnosis based follow up [facility] 09-01-2024 Note ED Patient Education Note Orthopedics [...] them backward. ??? Do not sit or historic site administrator one place for too long. ??? Take [...] body. ? Avoid twisting. Medicines ??? Take dghy-qjn-ecvabkb and prescription medicines only as told by [...] your pee (urine) pale yellow. ? Take ebeg-lwf-oabmdiy or prescription medicines. ? Eat foods that [...] provider. Document Revised: 05/14/2023 Document Reviewed: 05/14/2023 Elsevier Patient Education ? 2023 [employer] Acute Back Pain, Adult Acute back pain is sudden and usually short-lived. It is often caused by an injury to the muscles and tissues in the back. The injury may result from: (more content not included)... [facility] 09-01-2024 Evaluation + Plan note Extrac trinh [...] w/o Contrast CT Spine Thoracic w/o Contrast [facility] 11-19-2024 History of Present illness Narrative* Denis Dunlap, SUSIE - 08/26/2024 2:56 PM ESTAssociated Problem(s): Primary [...] glucose monitoring noted. Relevant Medications Continuous Glucose Dandy Operator (Dexcom G7 Dandy Operator) device Continuous Glucose Sensor (Dexcom G7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 requirements. [facility]23 NoteHNO ID: [id number] Author: Gillian Vega RN Service: ? Author Type: Registered Nurse Type: Progress Notes Filed: 12/26/2022 10:12 AM Note Text: Procedure cancelled due to blood sugar of 430. Required BS less than 250. Patient voiced understanding and will reschedule. All in agreement.[facility]02-17-2023 NoteHNO ID: [id number] Author: Patricia Hylton Service: ? Author Type: ? Type: Progress Notes Filed: 12/26/2022 10:12 AM Note Text: [facility] History of Present illness Narrative* Gillian Vega RN - 11/24/2022 10:53 AM EST Procedure cancelled due to blood sugar of 430. Required BS less than 250. Patient voiced understanding and will reschedule. All in agreement. * Patricia Hylton - 11/24/2022 10:00 AM EST cancelled documented in this encounterProvidence Hospital02-17-[facility]23 Nurse Note* Gillian Vega RN - 11/24/2022 10:02 AM EST PATIENT NAME: Bhavesh Cárdenas 1975 47 year old Current medications and allergies reviewed with patient in visit navigator: Yes Baseline vital signs and pain assessment entered in activity in visit navigator: Yes Edge Blacker for post spine injection procedure: Yes First [...] 24, 2022 10:02 AM documented in this encounterProvidence Hospital02-08-2023 NoteHNO ID: [id number] Author: Kb Lorenzo, DO Service: ? Author Type: Physician Type: Progress Notes Filed: 12/09/2022 11:53 AM Note Text: [facility] [place] November 15, 2022 This is a in-person visit. 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 He was referred by Olayinka Boyd [address] [facility] [id number]. Chief complaint: Center of back pain that [...] doctor and was seen by rheumatology. 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 He started physical therapy In 2020 the patient was sent to a L5-S1 for radiofrequency ablation that were not helpful. The diagnostic blocks was done as well. This was done at [place]. The patient tried to tolerate it, but [...] patient [facility] and not deemed an appropriate surgical [...] Denies CHF: Denies Uncontrolled HTN: Denies Recent CO: Denies Arrythmias: Denies Afib: Denies Hyperthyroid: Denies [...] Never Substance use: He never used tobacco. @[employer] denies current and past significant alcohol use [...] normal chest excursion HEART (more content not included)...[facility]02-08-[facility]23 History of Present illness Narrative* Kb Lorenzo DO - 11/15/2022 1:55 PM EST [facility] [place] November 15, 2022 This is a in-person visit. 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 He was referred by Olayinka Boyd [id number] [facility] [id number]. Chief complaint: Center of back pain that [...] doctor and was seen by rheumatology. 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 He started physical therapy In 2020 the patient was sent to a L5-S1 for radiofrequency ablation that were not helpful. The diagnostic blocks was done as well. This was doneat [facility]. The patient tried to tolerate [...] patient was seen by [facility] and not deemed an appropriate surgical [...] Denies CHF: Denies Uncontrolled HTN: Denies Recent CO: Denies Arrythmias: Denies Afib: Denies Hyperthyroid: Denies [...] Never Substance use: He never used tobacco. @[facility] denies current and past significant alcohol use and @[facility] describes current alcohol consumption as 3-4 shots [...] which included preparing to see the patient, [id number] patient care, completing clinical documentation, obtaining and/or reviewing separately obtained history, performing a medically appropriate examination, counseling and educating the pat ient/family/caregiver, and ordering medications, tests, or procedures. Important Patient Information: 1. To schedule Pain Recovery appointments or post-injection office visits, please call: [phone] 2. The nursing staff and medical assistants are an integral part of your pain recovery team and will be handling your phone calls and inquiries. 3. Your study results and treatment plan will be discussed during a follow-up appointment. If you do not have a follow-up appointment and wish to discuss any issues directly with me, please call: [phone] to set-up an appointment. 4. MyChart is best used for refill requests or yes or no questions. Anything more complicated will likely require a follow-up appointment that you can schedule by [phone]. 5. It is the practice of the [...] there is an opening. documented in this encounterProvidence Hospital01-23-2023 NoteHNO ID: [id number] Author: RT Tyson(R) Service: ? Author Type: [...] 10:35 [facility]01-23-2023 NoteHNO ID: [id number] Author: Santana Harris MD Service: ? Author Type: Physician Type: Progress Notes Filed: 10/30/2022 10:20 AM Note Text: ref: Shaikh Moi [address] [place] [address] I have been asked to see Bhavesh Cárdenas for Osteoarthritis by Shaikh Moi [address] [place] [address] HPI: Back pain for most of his lef. On the right side, just above the buttocks. The past six months it is painful picking up 24 pack of water. Leg drags on R a couple of times. Has fallen a couple of times. [place] like it lost control while walking. Has [...] his DIP joints Has noticed decrease in sleeve fixer strength. Hands swell. Has pain worse first [...] to light. Extraocular movem (more content not included)...[facility] 10-30-2022 History of Present illness Narrative* [...] 30, 2022 10:35 AM documented in this encounterProvidence Hospital01-23-2023 History of Present illness Narrative* Santana Harris MD - 10/30/2022 9:00 AM EST ref: Shaikh Moi [address] [place] [address] I have been asked to see Bhavesh Cárdenas for Osteoarthritis by Shaikh Moi [address] [place] [address] HPI: Back pain for most of his lef. On the right side, just above the buttocks. The past six months it is painful picking up 24 pack of water. Leg drags on R a couple of times. Has fallen a couple of times. [place] like it lost control while walking. Has [...] his DIP joints Has noticed decrease in sleeve fixer strength. Hands swell. Has pain worse first [...] consult to Shaikh Moi [address] [place] [address] via the electronic medical record documented in this encounterProvidence Hospital01-12-2023 NoteHNO ID: [id number] Author: Olayinka Boyd PA-C Service: ? 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 Fontanez, to discuss further treatment options including possibly injections. [facility] Other 12-20-2022 Evaluation note* Encounter Date Diagnosis [...] of right sacroiliac joint (ICD-10 - M46.1) [facility] Other 10-13-2022 Evaluation note* Encounter Date Diagnosis Assessment Notes Treatment Notes Treatment Clinical Notes Jul, Patellofemoral arthritis of right knee (ICD-10 - M17.11) Jul, Acute pain of right knee (ICD-10 - M25.561) Jul, Internal derangement of right knee (ICD-10 - M23.91) Hardy xrays and MRI reviewed with patient. We [...] new MRI for evaluation for meniscal tear. [facility] Other 10-06-2022 NotePROCEDURE: XR KNEE RT 4V or > COMPARISON: 11/16/2021 HISTORY: Pain in right knee FINDINGS: BONES:No fracture, acute abnormality, or significant arthropathy. SOFT TISSUES:Negative. No visible soft tissue swelling. EFFUSION:None visible. OTHER: Negative. IMPRESSION: No acute abnormality Electronically authenticated by: WASHINGTON DURAN Date: 2022-07-13 14:[facility] general Narrative - Reported* Type Description Date Medical History restless leg syndrome Medical History seasonal allergies Medical History DM Surgical History left knee surgery x 2 Surgical History L1-L5 ablation 08/2021 Hospitalization History No know Hospitalization history [facility] Other Evaluation + Plan note Future Appointments Appointment Date:01/29/2025 08:45:00 AM Scheduled Provider: Location:[facility] Appointment Type:PT [place] 30 (FT) Appointment Date:02/03/2025 10:15:00 AM Scheduled Provider: Location:[facility] Appointment Type:PT [place] 30 (FT) Appointment Date:02/05/2025 09:45:00 AM Scheduled Provider: Location:[facility] Appointment Type:PT [place] 30 (FT) Appointment Date:02/10/2025 09:15:00 AM Scheduled Provider: Location:[facility] Appointment Type:PT [place] 30 (FT) Appointment Date:02/12/2025 09:15:00 AM Scheduled Provider: Location:[facility] Appointment Type:PT [place] 30 (FT) Appointment Date:02/17/2025 09:15:00 AM Scheduled Provider: Location:[facility] Appointment Type:PT [place] 30 (FT) Appointment Date:02/19/2025 08:45:00 AM Scheduled Provider: Location:[facility] Appointment Type:PT [place] 30 (FT) Appointment Date:02/19/2025 09:30:00 AM Scheduled Provider: Location:[facility] Appointment Type:PT Re-Eval 30 (FT) [facility] Evanudq[facility]l noteNo assessment information [facility] Work Phone: [email or web address] note* Diagnosis Chronic bilateral low back pain without sciatica- Primary documented in this encounter [facility] note* Diagnosis Localized, primary osteoarthritis of hand, unspecified laterality- Primary Arthritis Arthropathy, unspecified, site unspecified Chronic right-sided low back pain without sciatica documented in this encounter [facility] note* Diagnosis Localized, primary osteoarthritis of hand, unspecified laterality Arthritis Arthropathy, unspecified, site unspecified Chronic right-sided low back pain without sciatica documented in this encounter [facility] noteNo InformationNosaint [email or web address] Other Evaluation note* Diagnosis Chronic pain syndrome- Primary Chronic bilateral low back pain without sciatica Disturbance of sleep pattern associated with pain Lumbar spondylosis Lumbosacral spondylosis without myelopathy Sacroiliitis (HCC) Sacroiliitis, not elsewhere classified Sacroiliitis (HCC) Sacroiliitis, not elsewhere classified documented in this encounter [facility] note* Diagnosis APPOINTMENT CANCELLED- Primary Sacroiliitis (HCC) Sacroiliitis, not elsewhere classified documented in this encounter [facility] note* Diagnosis Pain disorder associated with psychological factors and medical condition- Primary Other pain disorders related to psychological factors Chronic pain syndrome Sacroiliitis (HCC) Sacroiliitis, not elsewhere classified documented in this encounter [facility] note* Diagnosis Moderate persistent asthma without complication (CMS/HCC)- Primary [facility]* Diagnosis Metabolic syndrome X- Primary Dysmetabolic Syndrome X Pure hypertriglyceridemia (CMS/HCC) documented in this encounter [facility]* Diagnosis Uncontrolled type 2 diabetes mellitus with hyperglycemia (CMS/HCC)- Primary Chronic neck and back pain Primary hypertension (CMS/HCC) Unspecified essential hypertension Low back pain of thoracolumbar region with sciatica documented in this encounter [facility]* Diagnosis Metabolic syndrome X- Primary Dysmetabolic Syndrome X Uncontrolled type 2 diabetes mellitus with hyperglycemia (CMS/HCC) Class 3 severe obesity due to excess calories with serious comorbidity and body mass index (BMI) of 40.0 to 44.9 in adult ([facility]) documented in this encounter [facility]* Diagnosis Uncontrolled type 2 diabetes mellitus with hyperglycemia (CMS/HCC) documented in this encounter [facility]* Diagnosis Chronic pain syndrome- Primary RLS (restless legs syndrome) Restless legs syndrome (RLS) documented in this encounter [facility]* Diagnosis Type 2 diabetes mellitus without complication, without long-term current use of insulin ([facility])- Primary RLS (restless legs syndrome) Restless legs syndrome (RLS) Hyperlipidemia, unspecified hyperlipidemia type (CMS/HCC) Primary hypertension (CMS/HCC) Unspecified essential hypertension Moderate persistent asthma without complication (CMS/HCC) Class 3 severe obesity due to excess calories with serious comorbidity and body mass index (BMI) of 40.0 to 44.9 in adult ([facility]) Uncontrolled type 2 diabetes mellitus with hyperglycemia [...] (BMI) of 40.0 to 44.9 in adult ([facility]) Mixed hyperlipidemia (CMS/HCC) Mixed hyperlipidemia Encounter for monitoring opioid maintenance therapy Chronic neck and back pain Chronic pain syndrome Type 2 diabetes mellitus without complication, with long-term current use of insulin (CMS/[facility])- Primary Uncontrolled type 2 diabetes mellitus with hyperglycemia (CMS/HCC) Lumbar radiculopathy Thoracic or lumbosacral neuritis or radiculitis, unspecified Chronic neck and back pain Primary hypertension (CMS/HCC) Unspecified essential hypertension Moderate persistent asthma without complication (CMS/HCC)- Primary Chronic neck and back pain Primary hypertension (CMS/HCC) Unspecified essential hypertension Type 2 diabetes mellitus without complication, with long-term current use of insulin ([facility]) Uncontrolled type 2 diabetes mellitus with hyperglycemia (CMS/HCC) Mixed hyperlipidemia ([facility]) Mixed hyperlipidemia documented in this encounter [facility]* Diagnosis Type 2 diabetes mellitus without complication, without long-term current use of insulin ([facility])- Primary RLS (restless legs syndrome) Restless legs syndrome (RLS) Hyperlipidemia, unspecified hyperlipidemia type (CMS/HCC) Primary hypertension (CMS/HCC) Unspecified essential hypertension Moderate persistent asthma without complication (CMS/HCC) Class 3 severe obesity due to excess calories with serious comorbidity and body mass index (BMI) of 40.0 to 44.9 in adult ([facility]) Uncontrolled type 2 diabetes mellitus with hyperglycemia [...] essential hypertension Moderate persistent asthma without complication ([facility]) Class 3 severe obesity due to excess calories with serious comorbidity and body mass index (BMI) of 40.0 to 44.9 in adult ([facility]) Mixed hyperlipidemia ([facility]/HCC) Mixed hyperlipidemia Encounter for monitoring opioid maintenance therapy Chronic neck and back pain Chronic pain syndrome Type 2 diabetes mellitus without complication, with long-term current use of insulin ([facility])- Primary Uncontrolled type 2 diabetes mellitus with hyperglycemia (CMS/HCC) Lumbar radiculopathy Thoracic or lumbosacral neuritis or radiculitis, unspecified Moderate persistent asthma without complication ([facility])- Primary Chronic neck and back pain Primary hypertension ([facility]) Unspecified essential hypertension Type 2 diabetes mellitus without complication, with long-term current use of insulin ([facility]/HCC) Uncontrolled type 2 diabetes mellitus with hyperglycemia (CMS/HCC) Mixed hyperlipidemia ([facility]/HCC) Mixed hyperlipidemia Class 3 severe obesity due to excess calories with serious comorbidity and body mass index (BMI) of 40.0 to 44.9 in adult ([facility]) documented in this encounter [facility]* Diagnosis Type 2 diabetes mellitus without complication, without long-term current use of insulin ([facility]/HCC)- Primary RLS (restless legs syndrome) Restless legs syndrome (RLS) Hyperlipidemia, unspecified hyperlipidemia type (CMS/HCC) Primary hypertension (CMS/HCC) Unspecified essential hypertension Moderate persistent asthma without complication ([facility]) Class 3 severe obesity due to excess calories with serious comorbidity and body mass index (BMI) of 40.0 to 44.9 in adult ([facility]) Uncontrolled type 2 diabetes mellitus with hyperglycemia [...] mellitus with hyperglycemia (CMS/HCC)- Primary Primary hypertension ([facility]) Unspecified essential hypertension Moderate persistent asthma without complication ([facility]) Class 3 severe obesity due to excess calories with serious comorbidity and body mass index (BMI) of 40.0 to 44.9 in adult ([facility]) Mixed hyperlipidemia ([facility]) Mixed hyperlipidemia Encounter for monitoring opioid maintenance therapy Chronic neck and back pain Chronic pain syndrome Type 2 diabetes mellitus without complication, with long-term current use of insulin ([facility])- Primary Uncontrolled type 2 diabetes mellitus with hyperglycemia (CMS/HCC) Lumbar radiculopathy Thoracic or lumbosacral neuritis or radiculitis, unspecified Moderate persistent asthma without complication (CMS/HCC)- Primary Chronic neck and back pain Primary hypertension ([facility]/HCC) Unspecified essential hypertension Type 2 diabetes mellitus without complication, with long-term current use of insulin (CMS/HCC) Uncontrolled type 2 diabetes mellitus with hyperglycemia (CMS/HCC) Mixed hyperlipidemia ([facility]) Mixed hyperlipidemia Class 3 severe obesity due to excess calories with serious comorbidity and body mass index (BMI) of 40.0 to 44.9 in adult ([facility]) Moderate persistent asthma without complication (CMS/HCC) documented in this encounter [facility]* Diagnosis Type 2 diabetes mellitus without complication, without long-term current use of insulin (CMS/[facility])- Primary RLS (restless legs syndrome) Restless legs syndrome (RLS) Hyperlipidemia, unspecified hyperlipidemia type (CMS/HCC) Primary hypertension (CMS/HCC) Unspecified essential hypertension Moderate persistent asthma without complication (CMS/HCC) Class 3 severe obesity due to excess calories with serious comorbidity and body mass index (BMI) of 40.0 to 44.9 in adult ([facility]) Uncontrolled type 2 diabetes mellitus with hyperglycemia (CMS/HCC)- Primary Chronic neck and back pain Primary hypertension (CMS/HCC) Unspecified essential hypertension Low back pain of thoracolumbar region with sciatica Moderate persistent asthma without complication (CMS/HCC)- Primary Primary hypertension (CMS/HCC) Unspecified essential hypertension Uncontrolled type 2 diabetes mellitus with hyperglycemia (CMS/[facility]) Low back pain of thoracolumbar region with sciatica Type 2 diabetes mellitus without complication, with long-term current use of insulin (CMS/[facility]) Chronic neck and back pain Uncontrolled type [...] (BMI) of 40.0 to 44.9 in adult ([facility]) Mixed hyperlipidemia ([facility]) Mixed hyperlipidemia Encounter for monitoring opioid maintenance therapy Chronic neck and back pain Chronic pain syndrome Type 2 diabetes mellitus without complication, with long-term current use of insulin (CMS/[facility])- Primary Uncontrolled type 2 diabetes mellitus with hyperglycemia ([facility]) Lumbar radiculopathy Thoracic or lumbosacral neuritis or radiculitis, unspecified Moderate persistent asthma without complication ([facility])- Primary Chronic neck and back pain Primary hypertension ([facility]) Unspecified essential hypertension Type 2 diabetes mellitus without complication, with long-term current use of insulin ([facility]) Uncontrolled type 2 diabetes mellitus with hyperglycemia ([facility] Mixed hyperlipidemia ([facility]) Mixed hyperlipidemia Class 3 severe obesity due to excess calories with serious comorbidity and body mass index (BMI) of 40.0 to 44.9 in adult ([facility]) Type 2 diabetes mellitus without complication, with long-term current use of insulin ([facility]) Uncontrolled type 2 diabetes mellitus with hyperglycemia ([facility]) Moderate persistent asthma without complication ([facility]) documented in this encounter [facility]* Diagnosis Type 2 diabetes mellitus without complication, without long-term current use of insulin ([facility])- Primary RLS (restless legs syndrome) Restless legs syndrome (RLS) Hyperlipidemia, unspecified hyperlipidemia type ([facility]) Primary hypertension ([facility]) Unspecified essential hypertension Moderate persistent asthma without complication ([facility]) Class 3 severe obesity due to excess calories with serious comorbidity and body mass index (BMI) of 40.0 to 44.9 in adult ([facility]) Uncontrolled type 2 diabetes mellitus with hyperglycemia ([facility])- Primary Chronic neck and back pain Primary hypertension ([facility]) Unspecified essential hypertension Low back pain of thoracolumbar region with sciatica Moderate persistent asthma without complication ([facility])- Primary Primary hypertension ([facility]) Unspecified essential hypertension Uncontrolled type 2 diabetes mellitus with hyperglycemia ([facility]/HCC) Low back pain of thoracolumbar region with sciatica Type 2 diabetes mellitus without complication, with long-term current use of insulin ([facility]) Chronic neck and back pain Uncontrolled type 2 diabetes mellitus with hyperglycemia ([facility]/HCC)- Primary Primary hypertension ([facility]) Unspecified essential hypertension Chronic neck and back pain Low back pain of thoracolumbar region with sciatica Encounter for monitoring opioid maintenance therapy Uncontrolled type 2 diabetes mellitus with hyperglycemia ([facility]/HCC)- Primary Periodic limb movement Periodic limb movement [...] (BMI) of 40.0 to 44.9 in adult ([facility]) Mixed hyperlipidemia ([facility]) Mixed hyperlipidemia Encounter for monitoring opioid maintenance therapy Chronic neck and back pain Chronic pain syndrome Type 2 diabetes mellitus without complication, with long-term current use of insulin ([facility])- Primary Uncontrolled type 2 diabetes mellitus with hyperglycemia ([facility]) Lumbar radiculopathy Thoracic or lumbosacral neuritis or radiculitis, unspecified Moderate persistent asthma without complication ([facility])- Primary Chronic neck and back pain Primary hypertension ([facility]) Unspecified essential hypertension Type 2 diabetes mellitus without complication, with long-term current use of insulin ([facility] Uncontrolled type 2 diabetes mellitus with hyperglycemia ([facility] Mixed hyperlipidemia ([facility]) Mixed hyperlipidemia Class 3 severe obesity due to excess calories with serious comorbidity and body mass index (BMI) of 40.0 to 44.9 in adult ([facility]) Moderate persistent asthma without complication ([facility]) documented in this encounter [facility] HealthcareEvaluation note* Diagnosis Type 2 diabetes mellitus without complication, without long-term current use of insulin ([facility])- Primary RLS (restless legs syndrome) Restless legs syndrome (RLS) Hyperlipidemia, unspecified hyperlipidemia type ([facility]/HCC) Primary hypertension ([facility]/HCC) Unspecified essential hypertension Moderate persistent asthma without complication ([facility]) Class 3 severe obesity due to excess calories with serious comorbidity and body mass index (BMI) of 40.0 to 44.9 in adult ([facility] Uncontrolled type 2 diabetes mellitus with hyperglycemia ([facility]/HCC)- Primary Chronic neck and back pain Primary hypertension ([facility]/HCC) Unspecified essential hypertension Low back pain of thoracolumbar region with sciatica Moderate persistent asthma without complication ([facility]/HCC)- Primary Primary hypertension (CMS/HCC) Unspecified essential hypertension [...] mellitus with hyperglycemia (CMS/HCC)- Primary Primary hypertension (CMS/[facility]) Unspecified essential hypertension Moderate persistent asthma without complication (CMS/[facility]) Class 3 severe obesity due to excess calories with serious comorbidity and body mass index (BMI) of 40.0 to 44.9 in adult ([facility]) Mixed hyperlipidemia (CMS/HCC) Mixed hyperlipidemia Encounter for monitoring opioid maintenance therapy Chronic neck and back pain Chronic pain syndrome Type 2 diabetes mellitus without complication, with long-term current use of insulin ([facility])- Primary Uncontrolled type 2 diabetes mellitus with hyperglycemia (CMS/HCC) Lumbar radiculopathy Thoracic or lumbosacral neuritis or radiculitis, unspecified Moderate persistent asthma without complication (CMS/HCC)- Primary Chronic neck and back pain Primary hypertension (CMS/[facility]) Unspecified essential hypertension Type 2 diabetes mellitus without complication, with long-term current use of insulin (CMS/HCC) Uncontrolled type 2 diabetes mellitus with hyperglycemia (CMS/HCC) Mixed hyperlipidemia ([facility]/HCC) Mixed hyperlipidemia Class 3 severe obesity due to excess calories with serious comorbidity and body mass index (BMI) of 40.0 to 44.9 in adult ([facility]) Type 2 diabetes mellitus without complication, without long-term current use of insulin (CMS/HCC) documented in this encounter [facility] HealthcareEvaluation note* Diagnosis Type 2 diabetes mellitus without complication, without long-term current use of insulin ([facility]/HCC)- Primary RLS (restless legs syndrome) Restless legs syndrome (RLS) Hyperlipidemia, unspecified hyperlipidemia type (CMS/HCC) Primary hypertension (CMS/HCC) Unspecified essential hypertension Moderate persistent asthma without complication (CMS/HCC) Class 3 severe obesity due to excess calories with serious comorbidity and body mass index (BMI) of 40.0 to 44.9 in adult ([facility]) Uncontrolled type 2 diabetes mellitus with hyperglycemia [...] complication, with long-term current use of insulin ([facility]) Chronic neck and back pain Uncontrolled type [...] hyperglycemia (CMS/HCC)- Primary Hyperlipidemia, unspecified hyperlipidemia type ([facility]) Low back pain of thoracolumbar region with sciatica Primary hypertension (CMS/HCC) Unspecified essential hypertension Chronic neck and back pain Uncontrolled type 2 diabetes mellitus with hyperglycemia (CMS/HCC)- Primary Primary hypertension (CMS/HCC) Unspecified essential hypertension Moderate persistent asthma without complication ([facility]) Class 3 severe obesity due to excess calories with serious comorbidity and body mass index (BMI) of 40.0 to 44.9 in adult ([facility]) Mixed hyperlipidemia ([facility]) Mixed hyperlipidemia Encounter for monitoring opioid maintenance therapy Chronic neck and back pain Chronic pain syndrome Type 2 diabetes mellitus without complication, with long-term current use of insulin ([facility])- Primary Uncontrolled type 2 diabetes mellitus with hyperglycemia (CMS/HCC) Lumbar radiculopathy Thoracic or lumbosacral neuritis or radiculitis, unspecified Moderate persistent asthma without complication (CMS/HCC)- Primary Chronic neck and back pain Primary hypertension ([facility]) Unspecified essential hypertension Type 2 diabetes mellitus without complication, with long-term current use of insulin ([facility]/HCC) Uncontrolled type 2 diabetes mellitus with hyperglycemia (CMS/HCC) Mixed hyperlipidemia (CMS/HCC) Mixed hyperlipidemia Class 3 severe obesity due to excess calories with serious comorbidity and body mass index (BMI) of 40.0 to 44.9 in adult ([facility]) Anemia, unspecified type- Primary Type 2 diabetes mellitus without complication, without long-term current use of insulin (CMS/[facility])- Primary Iron deficiency anemia secondary to inadequate dietary iron intake Primary hypertension (CMS/HCC) Unspecified essential hypertension documented in this encounter [facility] HealthcareEvaluation note* Diagnosis Type 2 diabetes mellitus without complication, without long-term current use of insulin ([facility])- Primary RLS (restless legs syndrome) Restless legs syndrome (RLS) Hyperlipidemia, unspecified hyperlipidemia type (CMS/HCC) Primary hypertension (CMS/HCC) Unspecified essential hypertension Moderate persistent asthma without complication ([facility]) Class 3 severe obesity due to excess calories with serious comorbidity and body mass index (BMI) of 40.0 to 44.9 in adult ([facility]) Uncontrolled type 2 diabetes mellitus with hyperglycemia ([facility]/HCC)- Primary Chronic neck and back pain Primary hypertension (CMS/HCC) Unspecified essential hypertension Low back pain of thoracolumbar region with sciatica Moderate persistent asthma without complication (CMS/HCC)- Primary Primary hypertension (CMS/HCC) Unspecified essential hypertension Uncontrolled type 2 diabetes mellitus with hyperglycemia (CMS/HCC) Low back pain of thoracolumbar region with sciatica Type 2 diabetes mellitus without complication, with long-term current use of insulin (CMS/[facility]) Chronic neck and back pain Uncontrolled type 2 diabetes mellitus with hyperglycemia (CMS/HCC)- Primary Primary hypertension ([facility]/HCC) Unspecified essential hypertension Chronic neck and back [...] essential hypertension Moderate persistent asthma without complication ([facility]/HCC) Class 3 severe obesity due to excess calories with serious comorbidity and body mass index (BMI) of 40.0 to 44.9 in adult ([facility]) Mixed hyperlipidemia ([facility]/HCC) Mixed hyperlipidemia Encounter for monitoring opioid maintenance therapy Chronic neck and back pain Chronic pain syndrome Type 2 diabetes mellitus without complication, with long-term current use of insulin ([facility])- Primary Uncontrolled type 2 diabetes mellitus with hyperglycemia (CMS/HCC) Lumbar radiculopathy Thoracic or lumbosacral neuritis or radiculitis, unspecified Moderate persistent asthma without complication ([facility])- Primary Chronic neck and back pain Primary hypertension ([facility]) Unspecified essential hypertension Type 2 diabetes mellitus without complication, with long-term current use of insulin ([facility] Uncontrolled type 2 diabetes mellitus with hyperglycemia ([facility] Mixed hyperlipidemia ([facility]) Mixed hyperlipidemia Class 3 severe obesity due to excess calories with serious comorbidity and body mass index (BMI) of 40.0 to 44.9 in adult ([facility]) Chronic pain syndrome Type 2 diabetes mellitus without complication, without long-term current use of insulin ([facility])- Primary Iron deficiency anemia secondary to inadequate dietary iron intake Primary hypertension ([facility]) Unspecified essential hypertension documented in this encounter [facility] HealthcareEvaluation note* Diagnosis Type 2 diabetes mellitus without complication, without long-term current use of insulin ([facility])- Primary RLS (restless legs syndrome) Restless legs syndrome (RLS) Hyperlipidemia, unspecified hyperlipidemia type ([facility]) Primary hypertension ([facility]/HCC) Unspecified essential hypertension Moderate persistent asthma without complication ([facility]) Class 3 severe obesity due to excess calories with serious comorbidity and body mass index (BMI) of 40.0 to 44.9 in adult ([facility]) Uncontrolled type 2 diabetes mellitus with hyperglycemia (CMS/HCC)- Primary Chronic neck and back pain Primary hypertension ([facility]/HCC) Unspecified essential hypertension Low back pain of thoracolumbar region with sciatica Moderate persistent asthma without complication (CMS/HCC)- Primary Primary hypertension (CMS/HCC) Unspecified essential hypertension Uncontrolled type 2 diabetes mellitus with hyperglycemia (CMS/HCC) Low back pain of thoracolumbar region with sciatica Type 2 diabetes mellitus without complication, with long-term current use of insulin ([facility]) Chronic neck and back pain Uncontrolled type 2 diabetes mellitus with hyperglycemia (CMS/HCC)- Primary Primary hypertension (CMS/HCC) Unspecified essential hypertension Chronic neck and back pain Low back pain of thoracolumbar region with sciatica Encounter for monitoring opioid maintenance therapy Uncontrolled type 2 diabetes mellitus with hyperglycemia ([facility]/HCC)- Primary Periodic limb movement Periodic limb movement disorder Restless legs syndrome Restless legs syndrome (RLS) Uncontrolled type 2 diabetes mellitus with hyperglycemia (CMS/HCC)- Primary Hyperlipidemia, unspecified hyperlipidemia type ([facility]/HCC) Low back pain of thoracolumbar region with sciatica Primary hypertension ([facility]/HCC) Unspecified essential hypertension Chronic neck and back pain Uncontrolled type 2 diabetes mellitus with hyperglycemia (CMS/HCC)- Primary Primary hypertension ([facility]/HCC) Unspecified essential hypertension Moderate persistent asthma without complication ([facility]) Class 3 severe obesity due to excess calories with serious comorbidity and body mass index (BMI) of 40.0 to 44.9 in adult ([facility]) Mixed hyperlipidemia ([facility]) Mixed hyperlipidemia Encounter for monitoring opioid maintenance therapy Chronic neck and back pain Chronic pain syndrome Type 2 diabetes mellitus without complication, with long-term current use of insulin ([facility])- Primary Uncontrolled type 2 diabetes mellitus with hyperglycemia ([facility]) Lumbar radiculopathy Thoracic or lumbosacral neuritis or radiculitis, unspecified Moderate persistent asthma without complication ([facility])- Primary Chronic neck and back pain Primary hypertension ([facility]) Unspecified essential hypertension Type 2 diabetes mellitus without complication, with long-term current use of insulin ([facility] Uncontrolled type 2 diabetes mellitus with hyperglycemia ([facility] Mixed hyperlipidemia ([facility]) Mixed hyperlipidemia Class 3 severe obesity due to excess calories with serious comorbidity and body mass index (BMI) of 40.0 to 44.9 in adult ([facility]) Type 2 diabetes mellitus without complication, without long-term current use of insulin ([facility])- Primary Iron deficiency anemia secondary to inadequate dietary iron intake Primary hypertension ([facility]) Unspecified essential hypertension Moderate persistent asthma without complication ([facility]/HCC) documented in this encounter [facility] HealthcareEvaluation note* Diagnosis Type 2 diabetes mellitus without complication, without long-term current use of insulin ([facility])- Primary RLS (restless legs syndrome) Restless legs syndrome (RLS) Hyperlipidemia, unspecified hyperlipidemia type ([facility]/HCC) Primary hypertension ([facility]/HCC) Unspecified essential hypertension Moderate persistent asthma without complication ([facility]) Class 3 severe obesity due to excess calories with serious comorbidity and body mass index (BMI) of 40.0 to 44.9 in adult ([facility]) Uncontrolled type 2 diabetes mellitus with hyperglycemia [...] mellitus with hyperglycemia (CMS/HCC)- Primary Primary hypertension ([facility]) Unspecified essential hypertension Moderate persistent asthma without complication ([facility]) Class 3 severe obesity due to excess calories with serious comorbidity and body mass index (BMI) of 40.0 to 44.9 in adult ([facility]) Mixed hyperlipidemia ([facility]) Mixed hyperlipidemia Encounter for monitoring opioid maintenance therapy Chronic neck and back pain Chronic pain syndrome Type 2 diabetes mellitus without complication, with long-term current use of insulin ([facility])- Primary Uncontrolled type 2 diabetes mellitus with hyperglycemia (CMS/HCC) Lumbar radiculopathy Thoracic or lumbosacral neuritis or radiculitis, unspecified Moderate persistent asthma without complication (CMS/HCC)- Primary Chronic neck and back pain Primary hypertension ([facility]/HCC) Unspecified essential hypertension Type 2 diabetes mellitus without complication, with long-term current use of insulin ([facility]) Uncontrolled type 2 diabetes mellitus with hyperglycemia (CMS/HCC) Mixed hyperlipidemia ([facility]) Mixed hyperlipidemia Class 3 severe obesity due to excess calories with serious comorbidity and body mass index (BMI) of 40.0 to 44.9 in adult ([facility]) Type 2 diabetes mellitus without complication, without long-term current use of insulin (CMS/[facility])- Primary Iron deficiency anemia secondary to inadequate dietary iron intake Primary hypertension (CMS/HCC) Unspecified essential hypertension Moderate persistent asthma without complication (CMS/HCC) documented in this encounter [facility] HealthcareEvaluation note* Diagnosis Type 2 diabetes mellitus without complication, without long-term current use of insulin ([facility]) documented in this encounter [facility] HealthcareEvaluation note* Diagnosis Type 2 diabetes mellitus without complication, without long-term current use of insulin ([facility])- Primary RLS (restless legs syndrome) Restless legs syndrome (RLS) Hyperlipidemia, unspecified hyperlipidemia type (CMS/HCC) Primary hypertension ([facility]/HCC) Unspecified essential hypertension Moderate persistent asthma without complication ([facility]) Class 3 severe obesity due to excess calories with serious comorbidity and body mass index (BMI) of 40.0 to 44.9 in adult ([facility]) Uncontrolled type 2 diabetes mellitus with hyperglycemia [...] complication, with long-term current use of insulin (CMS/[facility]) Chronic neck and back pain Uncontrolled type [...] (BMI) of 40.0 to 44.9 in adult ([facility]) Mixed hyperlipidemia ([facility]) Mixed hyperlipidemia Encounter for monitoring opioid maintenance therapy Chronic neck and back pain Chronic pain syndrome Type 2 diabetes mellitus without complication, with long-term current use of insulin ([facility])- Primary Uncontrolled type 2 diabetes mellitus with hyperglycemia ([facility]) Lumbar radiculopathy Thoracic or lumbosacral neuritis or radiculitis, unspecified Moderate persistent asthma without complication ([facility] [facility] [place] Primary Chronic neck and back pain Primary hypertension ([facility] [place]) Unspecified essential hypertension Type 2 diabetes mellitus without complication, with long-term current use of insulin ([facility] [place]) Uncontrolled type 2 diabetes mellitus with hyperglycemia ([facility] [place] Mixed hyperlipidemia ([facility] [place]) Mixed hyperlipidemia Class 3 severe obesity due to excess calories with serious comorbidity and body mass index (BMI) of 40.0 to 44.9 in adult ([facility] [place]) Type 2 diabetes mellitus without complication, without long-term current use of insulin ([facility] [place])- Primary Iron deficiency anemia secondary to inadequate dietary iron intake Primary hypertension ([facility] [place]) Unspecified essential hypertension Chronic pain syndrome documented in this encounter [facility]* Diagnosis Type 2 diabetes mellitus without complication, without long-term current use of insulin ([facility])- Primary RLS (restless legs syndrome) Restless legs syndrome (RLS) Hyperlipidemia, unspecified hyperlipidemia type ([facility] [place]) Primary hypertension ([facility] [place] Unspecified essential hypertension Moderate persistent asthma without complication ([facility] [place]) Class 3 severe obesity due to excess calories with serious comorbidity and body mass index (BMI) of 40.0 to 44.9 in adult ([facility] [place]) Uncontrolled type 2 diabetes mellitus with hyperglycemia ([facility] [place]/HCC)- Primary Chronic neck and back pain Primary hypertension ([facility] [place]/HCC) Unspecified essential hypertension Low back pain of thoracolumbar region with sciatica Moderate persistent asthma without complication ([facility] [place]/HCC)- Primary Primary hypertension ([facility] [place]/HCC) Unspecified essential hypertension Uncontrolled type 2 diabetes mellitus with hyperglycemia ([facility] [place]/HCC) Low back pain of thoracolumbar region with sciatica Type 2 diabetes mellitus without complication, with long-term current use of insulin ([facility] [place]) Chronic neck and back pain Uncontrolled type [...] essential hypertension Moderate persistent asthma without complication ([facility] [place]) Class 3 severe obesity due to excess calories with serious comorbidity and body mass index (BMI) of 40.0 to 44.9 in adult ([facility] [place]) Mixed hyperlipidemia (CMS/HCC) Mixed hyperlipidemia Encounter for monitoring opioid maintenance therapy Chronic neck and back pain Chronic pain syndrome Type 2 diabetes mellitus without complication, with long-term current use of insulin ([facility] [place])- Primary Uncontrolled type 2 diabetes mellitus with hyperglycemia (CMS/HCC) Lumbar radiculopathy Thoracic or lumbosacral neuritis or radiculitis, unspecified Moderate persistent asthma without complication ([facility] [place])- Primary Chronic neck and back pain Primary hypertension ([facility] [place]) Unspecified essential hypertension Type 2 diabetes mellitus without complication, with long-term current use of insulin ([facility] [place]) Uncontrolled type 2 diabetes mellitus with hyperglycemia (CMS/HCC) Mixed hyperlipidemia ([facility] [place]) Mixed hyperlipidemia Class 3 severe obesity due to excess calories with serious comorbidity and body mass index (BMI) of 40.0 to 44.9 in adult ([facility]) Type 2 diabetes mellitus without complication, without long-term current use of insulin ([facility])- Primary Iron deficiency anemia secondary to inadequate dietary iron intake Primary hypertension ([facility] [place]/HCC) Unspecified essential hypertension Type 2 diabetes mellitus without complication, without long-term current use of insulin ([facility] [place]/HCC) documented in this encounter [facility]* Diagnosis Type 2 diabetes mellitus without complication, without long-term current use of insulin ([facility] [place]/HCC)- Primary RLS (restless legs syndrome) Restless legs syndrome (RLS) Hyperlipidemia, unspecified hyperlipidemia type (CMS/HCC) Primary hypertension (CMS/HCC) Unspecified essential hypertension Moderate persistent asthma without complication (CMS/HCC) Class 3 severe obesity due to excess calories with serious comorbidity and body mass index (BMI) of 40.0 to 44.9 in adult ([facility] [place]) Uncontrolled type 2 diabetes mellitus with hyperglycemia [...] complication, with long-term current use of insulin (CMS/[facility]) Chronic neck and back pain Uncontrolled type [...] hyperglycemia (CMS/HCC)- Primary Hyperlipidemia, unspecified hyperlipidemia type (CMS/[facility]) Low back pain of thoracolumbar region with sciatica Primary hypertension (CMS/HCC) Unspecified essential hypertension Chronic neck and back pain Uncontrolled type 2 diabetes mellitus with hyperglycemia (CMS/HCC)- Primary Primary hypertension (CMS/HCC) Unspecified essential hypertension Moderate persistent asthma without complication (CMS/[facility]) Class 3 severe obesity due to excess calories with serious comorbidity and body mass index (BMI) of 40.0 to 44.9 in adult ([facility] [place]) Mixed hyperlipidemia ([facility] [place]) Mixed hyperlipidemia Encounter for monitoring opioid maintenance therapy Chronic neck and back pain Chronic pain syndrome Type 2 diabetes mellitus without complication, with long-term current use of insulin ([facility] [place])- Primary Uncontrolled type 2 diabetes mellitus with hyperglycemia (CMS/HCC) Lumbar radiculopathy Thoracic or lumbosacral neuritis or radiculitis, unspecified Moderate persistent asthma without complication (CMS/HCC)- Primary Chronic neck and back pain Primary hypertension ([facility] [place]) Unspecified essential hypertension Type 2 diabetes mellitus without complication, with long-term current use of insulin (CMS/[facility]) Uncontrolled type 2 diabetes mellitus with hyperglycemia (CMS/[facility] Mixed hyperlipidemia ([facility] [place]) Mixed hyperlipidemia Class 3 severe obesity due to excess calories with serious comorbidity and body mass index (BMI) of 40.0 to 44.9 in adult ([facility]) Type 2 diabetes mellitus without complication, without long-term current use of insulin ([facility] [place])- Primary Iron deficiency anemia secondary to inadequate dietary iron intake Primary hypertension ([facility] [place]) Unspecified essential hypertension Type 2 diabetes mellitus without complication, without long-term current use of insulin ([facility] [place]) documented in this [facility]* Diagnosis Uncontrolled type 2 diabetes mellitus with hyperglycemia ([facility] [place]) documented in this encounter [facility]* Diagnosis Uncontrolled type 2 diabetes mellitus with hyperglycemia ([facility] [place])- Primary Primary hypertension ([facility] [place] Unspecified essential hypertension Moderate persistent asthma without complication ([facility] [place]) Class 3 severe obesity due to excess calories with serious comorbidity and body mass index (BMI) of 40.0 to 44.9 in adult ([facility]) Mixed hyperlipidemia ([facility] [place]) Mixed hyperlipidemia Encounter for monitoring opioid maintenance [...] complication, with long-term current use of insulin ([facility] [place])- Primary Uncontrolled type 2 diabetes mellitus with hyperglycemia ([facility] [place]) Lumbar radiculopathy Thoracic or lumbosacral neuritis or radiculitis, unspecified documented in this encounter [facility]* Diagnosis Type 2 diabetes mellitus without complication, without long-term current use of insulin ([facility] [place])- Primary RLS (restless legs syndrome) Restless legs syndrome (RLS) Hyperlipidemia, unspecified hyperlipidemia type ([facility] [place]) Primary hypertension ([facility] [place] Unspecified essential hypertension Moderate persistent asthma without complication ([facility] [place]) Class 3 severe obesity due to excess calories with serious comorbidity and body mass index (BMI) of 40.0 to 44.9 in adult ([facility]) Uncontrolled type 2 diabetes mellitus with hyperglycemia ([facility] [place])- Primary Chronic neck and back pain Primary [...] hyperglycemia (CMS/HCC)- Primary Hyperlipidemia, unspecified hyperlipidemia type (CMS/[facility]) Low back pain of thoracolumbar region with sciatica Primary hypertension (CMS/HCC) Unspecified essential hypertension Chronic neck and back pain Uncontrolled type 2 diabetes mellitus with hyperglycemia (CMS/HCC)- Primary Primary hypertension (CMS/HCC) Unspecified essential hypertension Moderate persistent asthma without complication ([facility] [place]) Class 3 severe obesity due to excess calories with serious comorbidity and body mass index (BMI) of 40.0 to 44.9 in adult ([facility] [place]) Mixed hyperlipidemia ([facility] [place]) Mixed hyperlipidemia Encounter for monitoring opioid maintenance therapy Chronic neck and back pain Chronic pain syndrome Type 2 diabetes mellitus without complication, with long-term current use of insulin ([facility] [place])- Primary Uncontrolled type 2 diabetes mellitus with hyperglycemia (CMS/HCC) Lumbar radiculopathy Thoracic or lumbosacral neuritis or radiculitis, unspecified Moderate persistent asthma without complication ([facility] [place])- Primary Chronic neck and back pain Primary hypertension ([facility] [place]) Unspecified essential hypertension Type 2 diabetes mellitus without complication, with long-term current use of insulin ([facility] [place]) Uncontrolled type 2 diabetes mellitus with hyperglycemia (CMS/HCC) Mixed hyperlipidemia ([facility] [place]) Mixed hyperlipidemia Class 3 severe obesity due to excess calories with serious comorbidity and body mass index (BMI) of 40.0 to 44.9 in adult ([facility] [place]) Type 2 diabetes mellitus without complication, without long-term current use of insulin ([facility] [place]/HCC)- Primary Iron deficiency anemia secondary to inadequate dietary iron intake Primary hypertension (CMS/HCC) Unspecified essential hypertension documented in this encounter [facility]* Diagnosis Type 2 diabetes mellitus without complication, without long-term current use of insulin ([facility] [place])- Primary RLS (restless legs syndrome) Restless legs syndrome (RLS) Hyperlipidemia, unspecified hyperlipidemia type (CMS/HCC) Primary hypertension ([facility] [place]/HCC) Unspecified essential hypertension Moderate persistent asthma without complication ([facility] [place]) Class 3 severe obesity due to excess calories with serious comorbidity and body mass index (BMI) of 40.0 to 44.9 in adult ([facility] [place]) Uncontrolled type 2 diabetes mellitus with hyperglycemia ([facility] [place]/HCC)- Primary Chronic neck and back pain Primary hypertension ([facility] [place]) Unspecified essential hypertension Low back pain of thoracolumbar region with sciatica Moderate persistent asthma without complication (CMS/HCC)- Primary Primary hypertension ([facility] [place]/HCC) Unspecified essential hypertension Uncontrolled type 2 diabetes mellitus with hyperglycemia ([facility] [place]) Low back pain of thoracolumbar region with sciatica Type 2 diabetes mellitus without complication, with long-term current use of insulin ([facility] [place]) Chronic neck and back pain Uncontrolled type 2 diabetes mellitus with hyperglycemia (CMS/HCC)- Primary Primary hypertension ([facility] [place]) Unspecified essential hypertension Chronic neck and back [...] of thoracolumbar region with sciatica Primary hypertension ([facility] [place]/HCC) Unspecified essential hypertension Chronic neck and back pain Uncontrolled type 2 diabetes mellitus with hyperglycemia ([facility] [place]/HCC)- Primary Primary hypertension ([facility] [place]/HCC) Unspecified essential hypertension Moderate persistent asthma without complication ([facility] [place]) Class 3 severe obesity due to excess calories with serious comorbidity and body mass index (BMI) of 40.0 to 44.9 in adult ([facility] [place]) Mixed hyperlipidemia ([facility] [place]) Mixed hyperlipidemia Encounter for monitoring opioid maintenance therapy Chronic neck and back pain Chronic pain syndrome Type 2 diabetes mellitus without complication, with long-term current use of insulin ([facility])- Primary Uncontrolled type 2 diabetes mellitus with hyperglycemia (CMS/HCC) Lumbar radiculopathy Thoracic or lumbosacral neuritis or radiculitis, unspecified Moderate persistent asthma without complication (CMS/HCC)- Primary Chronic neck and back pain Primary hypertension ([facility]) Unspecified essential hypertension Type 2 diabetes mellitus without complication, with long-term current use of insulin ([facility] [place]) Uncontrolled type 2 diabetes mellitus with hyperglycemia (CMS/HCC) Mixed hyperlipidemia ([facility] [place]/HCC) Mixed hyperlipidemia Class 3 severe obesity due to excess calories with serious comorbidity and body mass index (BMI) of 40.0 to 44.9 in adult ([facility] [place]) Type 2 diabetes mellitus without complication, without long-term current use of insulin ([facility] [place])- Primary Iron deficiency anemia secondary to inadequate dietary iron intake Primary hypertension ([facility] [place] Unspecified essential hypertension Moderate persistent asthma without complication ([facility] [place]) documented in this encounter [facility]Evaluation note* Diagnosis Type 2 diabetes mellitus without complication, without long-term current use of insulin ([facility])- Primary RLS (restless legs syndrome) Restless legs syndrome (RLS) Hyperlipidemia, unspecified hyperlipidemia type ([facility] [place]/HCC) Primary hypertension ([facility]/HCC) Unspecified essential hypertension Moderate persistent asthma without complication ([facility] [place]) Class 3 severe obesity due to excess calories with serious comorbidity and body mass index (BMI) of 40.0 to 44.9 in adult ([facility] [place]) Uncontrolled type 2 diabetes mellitus with hyperglycemia (CMS/HCC)- Primary Chronic neck and back pain Primary hypertension ([facility] [place]/HCC) Unspecified essential hypertension Low back pain of thoracolumbar region with sciatica Moderate persistent asthma without complication ([facility] [place])- Primary Primary hypertension ([facility]/HCC) Unspecified essential hypertension Uncontrolled type 2 diabetes mellitus with hyperglycemia (CMS/HCC) Low back pain of thoracolumbar region with sciatica Type 2 diabetes mellitus without complication, with long-term current use of insulin ([facility] Chronic neck and back pain Uncontrolled type 2 diabetes mellitus with hyperglycemia ([facility] [place]/HCC)- Primary Primary hypertension ([facility] [place] Unspecified essential hypertension Chronic neck and back pain Low back pain of thoracolumbar region with sciatica Encounter for monitoring opioid maintenance therapy Uncontrolled type 2 diabetes mellitus with hyperglycemia (CMS/HCC)- Primary Periodic limb movement Periodic limb movement disorder Restless legs syndrome Restless legs syndrome (RLS) Uncontrolled type 2 diabetes mellitus with hyperglycemia ([facility]/HCC)- Primary Hyperlipidemia, unspecified hyperlipidemia type (CMS/HCC) Low back pain of thoracolumbar region with sciatica Primary hypertension ([facility]/HCC) Unspecified essential hypertension Chronic neck and back pain Uncontrolled type 2 diabetes mellitus with hyperglycemia (CMS/HCC)- Primary Primary hypertension (CMS/HCC) Unspecified essential hypertension Moderate persistent asthma without complication ([facility]/HCC) Class 3 severe obesity due to excess calories with serious comorbidity and body mass index (BMI) of 40.0 to 44.9 in adult ([facility]) Mixed hyperlipidemia ([facility]) Mixed hyperlipidemia Encounter for monitoring opioid maintenance therapy Chronic neck and back pain Chronic pain syndrome Type 2 diabetes mellitus without complication, with long-term current use of insulin ([facility])- Primary Uncontrolled type 2 diabetes mellitus with hyperglycemia ([facility] [place]) Lumbar radiculopathy Thoracic or lumbosacral neuritis or radiculitis, unspecified Moderate persistent asthma without complication ([facility] [place])- Primary Chronic neck and back pain Primary hypertension ([facility] [place]) Unspecified essential hypertension Type 2 diabetes mellitus without complication, with long-term current use of insulin ([facility] Uncontrolled type 2 diabetes mellitus with hyperglycemia ([facility] Mixed hyperlipidemia ([facility]) Mixed hyperlipidemia Class 3 severe obesity due to excess calories with serious comorbidity and body mass index (BMI) of 40.0 to 44.9 in adult ([facility]) Type 2 diabetes mellitus without complication, without long-term current use of insulin ([facility])- Primary Iron deficiency anemia secondary to inadequate dietary iron intake Primary hypertension ([facility]) Unspecified essential hypertension Chronic pain syndrome documented in this encounter [facility]* Diagnosis Type 2 diabetes mellitus without complication, without long-term current use of insulin ([facility])- Primary RLS (restless legs syndrome) Restless legs syndrome (RLS) Hyperlipidemia, unspecified hyperlipidemia type ([facility]/HCC) Primary hypertension ([facility]/HCC) Unspecified essential hypertension Moderate persistent asthma without complication ([facility]/HCC) Class 3 severe obesity due to excess calories with serious comorbidity and body mass index (BMI) of 40.0 to 44.9 in adult ([facility]) Uncontrolled type 2 diabetes mellitus with hyperglycemia [...] (BMI) of 40.0 to 44.9 in adult ([facility]) Mixed hyperlipidemia (CMS/HCC) Mixed hyperlipidemia Encounter for [...] diabetes mellitus with hyperglycemia (CMS/HCC) Mixed hyperlipidemia ([facility]/HCC) Mixed hyperlipidemia Class 3 severe obesity due to excess calories with serious comorbidity and body mass index (BMI) of 40.0 to 44.9 in adult ([facility]) Type 2 diabetes mellitus without complication, without long-term current use of insulin (CMS/HCC)- Primary Iron deficiency anemia secondary to inadequate dietary iron intake Primary hypertension (CMS/HCC) Unspecified essential hypertension Chronic neck and back pain documented in this encounter [facility] [...] (BMI) of 40.0 to 44.9 in adult (CMS/[facility]) Uncontrolled type 2 diabetes mellitus with hyperglycemia [...] (BMI) of 40.0 to 44.9 in adult (CMS/[facility]) Mixed hyperlipidemia (CMS/HCC) Mixed hyperlipidemia Encounter for [...] Chronic neck and back pain Primary hypertension ([facility]/HCC) Unspecified essential hypertension Type 2 diabetes mellitus without complication, with long-term current use of insulin ([facility]) Uncontrolled type 2 diabetes mellitus with hyperglycemia (CMS/HCC) Mixed hyperlipidemia (CMS/HCC) Mixed hyperlipidemia Class 3 severe obesity due to excess calories with serious comorbidity and body mass index (BMI) of 40.0 to 44.9 in adult ([facility]) Type 2 diabetes mellitus without complication, without long-term current use of insulin (CMS/[facility])- Primary Iron deficiency anemia secondary to inadequate dietary iron intake Primary hypertension (CMS/[facility]) Unspecified essential hypertension Chronic pain syndrome documented in this encounter [facility]* Diagnosis Type 2 diabetes mellitus without complication, without long-term current use of insulin ([facility])- Primary RLS (restless legs syndrome) Restless legs syndrome (RLS) Hyperlipidemia, unspecified hyperlipidemia type (CMS/HCC) Primary hypertension ([facility]/HCC) Unspecified essential hypertension Moderate persistent asthma without complication ([facility]) Class 3 severe obesity due to excess calories with serious comorbidity and body mass index (BMI) of 40.0 to 44.9 in adult ([facility]) Uncontrolled type 2 diabetes mellitus with hyperglycemia (CMS/HCC)- Primary Chronic neck and back pain Primary hypertension ([facility]/HCC) Unspecified essential hypertension Low back pain of thoracolumbar region with sciatica Moderate persistent asthma without complication (CMS/HCC)- Primary Primary hypertension (CMS/HCC) Unspecified essential hypertension Uncontrolled type 2 diabetes mellitus with hyperglycemia (CMS/HCC) Low back pain of thoracolumbar region with sciatica Type 2 diabetes mellitus without complication, with long-term current use of insulin ([facility]) Chronic neck and back pain Uncontrolled type 2 diabetes mellitus with hyperglycemia (CMS/HCC)- Primary Primary hypertension ([facility]/HCC) Unspecified essential hypertension Chronic neck and back [...] Uncontrolled type 2 diabetes mellitus with hyperglycemia ([facility]/HCC)- Primary Primary hypertension ([facility]/HCC) Unspecified essential hypertension Moderate persistent asthma without complication ([facility]/HCC) Class 3 severe obesity due to excess calories with serious comorbidity and body mass index (BMI) of 40.0 to 44.9 in adult ([facility]) Mixed hyperlipidemia ([facility]) Mixed hyperlipidemia Encounter for monitoring opioid maintenance therapy Chronic neck and back pain Chronic pain syndrome Type 2 diabetes mellitus without complication, with long-term current use of insulin ([facility])- Primary Uncontrolled type 2 diabetes mellitus with hyperglycemia (CMS/[facility]) Lumbar radiculopathy Thoracic or lumbosacral neuritis or radiculitis, unspecified Moderate persistent asthma without complication ([facility])- Primary Chronic neck and back pain Primary hypertension ([facility]) Unspecified essential hypertension Type 2 diabetes mellitus without complication, with long-term current use of insulin ([facility]) Uncontrolled type 2 diabetes mellitus with hyperglycemia ([facility] Mixed hyperlipidemia ([facility]) Mixed hyperlipidemia Class 3 severe obesity due to excess calories with serious comorbidity and body mass index (BMI) of 40.0 to 44.9 in adult ([facility]) Type 2 diabetes mellitus without complication, without long-term current use of insulin ([facility])- Primary Iron deficiency anemia secondary to inadequate dietary iron intake Primary hypertension ([facility]) Unspecified essential hypertension Chronic pain syndrome documented in this encounter [facility]* Diagnosis Type 2 diabetes mellitus without complication, without long-term current use of insulin ([facility])- Primary RLS (restless legs syndrome) Restless legs syndrome (RLS) Hyperlipidemia, unspecified hyperlipidemia type ([facility]) Primary hypertension ([facility] Unspecified essential hypertension Moderate persistent asthma without complication ([facility]) Class 3 severe obesity due to excess calories with serious comorbidity and body mass index (BMI) of 40.0 to 44.9 in adult ([facility]) Uncontrolled type 2 diabetes mellitus with hyperglycemia ([facility]/HCC)- Primary Chronic neck and back pain Primary hypertension ([facility]/HCC) Unspecified essential hypertension Low back pain of thoracolumbar region with sciatica Moderate persistent asthma without complication ([facility])- Primary Primary hypertension ([facility]/HCC) Unspecified essential hypertension Uncontrolled type 2 diabetes mellitus with hyperglycemia ([facility]) Low back pain of thoracolumbar region with [...] Hyperlipidemia, unspecified hyperlipidemia type (CMS/HCC) Primary hypertension ([facility]/HCC) Unspecified essential hypertension Moderate persistent asthma without complication ([facility]) Class 3 severe obesity due to excess calories with serious comorbidity and body mass index (BMI) of 40.0 to 44.9 in adult ([facility]) Uncontrolled type 2 diabetes mellitus with hyperglycemia (CMS/HCC)- Primary Chronic neck and back pain Primary hypertension (CMS/HCC) Unspecified essential hypertension Low back pain of thoracolumbar region with sciatica Moderate persistent asthma without complication (CMS/HCC)- Primary Primary hypertension ([facility] Unspecified essential hypertension Uncontrolled type 2 diabetes mellitus with hyperglycemia ([facility]) Low back pain of thoracolumbar region with sciatica Type 2 diabetes mellitus without complication, with long-term current use of insulin ([facility]) Chronic neck and back pain Uncontrolled type 2 diabetes mellitus with hyperglycemia ([facility])- Primary Primary hypertension ([facility]) Unspecified essential hypertension Chronic neck and back pain Low back pain of thoracolumbar region with sciatica Encounter for monitoring opioid maintenance therapy Uncontrolled type 2 diabetes mellitus with hyperglycemia (CMS/HCC)- Primary Periodic limb movement Periodic limb movement disorder Restless legs syndrome Restless legs syndrome (RLS) Uncontrolled type 2 diabetes mellitus with hyperglycemia ([facility]/HCC)- Primary Hyperlipidemia, unspecified hyperlipidemia type (CMS/HCC) Low back pain of thoracolumbar region with sciatica Primary hypertension ([facility]) Unspecified essential hypertension Chronic neck and back pain Uncontrolled type 2 diabetes mellitus with hyperglycemia ([facility]/HCC)- Primary Primary hypertension ([facility]) Unspecified essential hypertension Moderate persistent asthma without complication ([facility]) Class 3 severe obesity due to excess calories with serious comorbidity and body mass index (BMI) of 40.0 to 44.9 in adult ([facility]) Mixed hyperlipidemia ([facility]) Mixed hyperlipidemia Encounter for monitoring opioid maintenance therapy Chronic neck and back pain Chronic pain syndrome Type 2 diabetes mellitus without complication, with long-term current use of insulin ([facility])- Primary Uncontrolled type 2 diabetes mellitus with hyperglycemia ([facility]) Lumbar radiculopathy Thoracic or lumbosacral neuritis or radiculitis, unspecified Moderate persistent asthma without complication ([facility])- Primary Chronic neck and back pain Primary hypertension ([facility]) Unspecified essential hypertension Type 2 diabetes mellitus [...] complication, with long-term current use of insulin ([facility]) Uncontrolled type 2 diabetes mellitus with hyperglycemia (CMS/HCC) documented in this encounter [facility]* Diagnosis Type 2 diabetes mellitus without complication, without long-term current use of insulin- Primary RLS (restless legs syndrome) Restless legs syndrome (RLS) Hyperlipidemia, unspecified hyperlipidemia type (CMS/HCC) Primary hypertension ([facility]/HCC) Unspecified essential hypertension Moderate persistent asthma without [...] legs syndrome (RLS) documented in this encounter [facility]* Diagnosis Type 2 diabetes [...] and back pain documented in this encounter [facility]* Diagnosis Type 2 diabetes [...] Chronic pain syndrome documented in this encounter [facility]* Diagnosis Type 2 diabetes [...] without complication (CMS/HCC) documented in this encounter [facility]* Diagnosis Type 2 diabetes [...] with hyperglycemia (CMS/HCC) documented in this encounter [facility]* Diagnosis Type 2 diabetes [...] use of insulin documented in this encounter [facility]* Diagnosis Type 2 diabetes [...] without complication (CMS/HCC) documented in this encounter [facility]* Diagnosis Type 2 diabetes [...] Chronic pain syndrome documented in this encounter [facility]* Diagnosis Type 2 diabetes [...] and back pain documented in this encounter [facility]* [...] (BMI) of 40.0 to 44.9 in adult ([facility]-HCC) Uncontrolled type 2 diabetes mellitus with hyperglycemia [...] (BMI) of 40.0 to 44.9 in adult ([facility]) Mixed hyperlipidemia Mixed hyperlipidemia Encounter for monitoring [...] (BMI) of 40.0 to 44.9 in adult ([facility]) Type 2 diabetes mellitus without complication, without [...] (BMI) of 40.0 to 44.9 in adult ([facility]) Moderate episode of recurrent major depressive disorder (HCC) Chronic neck and back pain Chronic pain syndrome documented in this encounter [facility]* Diagnosis Type 2 diabetes mellitus without complication, without long-term current use of insulin (HCC)- Primary RLS (restless legs syndrome) Restless legs syndrome (RLS) Hyperlipidemia, unspecified hyperlipidemia type Primary hypertension Unspecified essential hypertension Moderate persistent asthma without complication (HCC) Class 3 severe obesity due to excess calories with serious comorbidity and body mass index (BMI) of 40.0 to 44.9 in adult ([facility]) Uncontrolled type 2 diabetes mellitus with hyperglycemia [...] essential hypertension Moderate persistent asthma without complication ([facility]) Class 3 severe obesity due to excess calories with serious comorbidity and body mass index (BMI) of 40.0 to 44.9 in adult ([facility]) Mixed hyperlipidemia Mixed hyperlipidemia Encounter for monitoring [...] complication, with long-term current use of insulin ([facility]) Uncontrolled type 2 diabetes mellitus with hyperglycemia (HCC) Mixed hyperlipidemia Mixed hyperlipidemia Class 3 severe obesity due to excess calories with serious comorbidity and body mass index (BMI) of 40.0 to 44.9 in adult [facility] Type 2 diabetes mellitus without complication, without [...] (BMI) of 40.0 to 44.9 in adult ([facility]) Moderate episode of recurrent major depressive disorder (HCC) Chronic neck and back pain Type 2 diabetes mellitus without complication, without long-term current use of insulin (HCC)- Primary documented in this encounter [facility]* Diagnosis Type 2 diabetes mellitus without complication, without long-term current use of insulin (HCC)- Primary RLS (restless legs syndrome) Restless legs syndrome (RLS) Hyperlipidemia, unspecified hyperlipidemia type Primary hypertension Unspecified essential hypertension Moderate persistent asthma without complication (HCC) Class 3 severe obesity due to excess calories with serious comorbidity and body mass index (BMI) of 40.0 to 44.9 in adult ([facility]) Uncontrolled type 2 diabetes mellitus with hyperglycemia [...] (BMI) of 40.0 to 44.9 in adult ([facility]) Mixed hyperlipidemia Mixed hyperlipidemia Encounter for monitoring [...] complication, with long-term current use of insulin ([facility]) Uncontrolled type 2 diabetes mellitus with hyperglycemia (HCC) Mixed hyperlipidemia Mixed hyperlipidemia Class 3 severe obesity due to excess calories with serious comorbidity and body mass index (BMI) of 40.0 to 44.9 in adult ([facility]) Type 2 diabetes mellitus without complication, without long-term current use of insulin ([facility])- Primary Iron deficiency anemia secondary to inadequate [...] (BMI) of 40.0 to 44.9 in adult ([facility]) Moderate episode of recurrent major depressive disorder (HCC) Chronic neck and back pain Chronic neck and back pain documented in this encounter [facility]* Diagnosis Type 2 diabetes mellitus without complication, without long-term current use of insulin ([facility])- Primary RLS (restless legs syndrome) Restless legs syndrome (RLS) Hyperlipidemia, unspecified hyperlipidemia type Primary hypertension Unspecified essential hypertension Moderate persistent asthma without complication ([facility]) Class 3 severe obesity due to excess calories with serious comorbidity and body mass index (BMI) of 40.0 to 44.9 in adult ([facility]) Uncontrolled type 2 diabetes mellitus with hyperglycemia [...] (BMI) of 40.0 to 44.9 in adult ([facility]) Mixed hyperlipidemia Mixed hyperlipidemia Encounter for monitoring [...] (BMI) of 40.0 to 44.9 in adult ([facility]) Type 2 diabetes mellitus without complication, without [...] (BMI) of 40.0 to 44.9 in adult ([facility]) Moderate episode of recurrent major depressive disorder [...] malignant neoplasms, colon documented in this encounter [facility]* Diagnosis Type 2 diabetes mellitus without complication, without long-term current use of insulin (HCC)- Primary RLS (restless legs syndrome) Restless legs syndrome (RLS) Hyperlipidemia, unspecified hyperlipidemia type Primary hypertension Unspecified essential hypertension Moderate persistent asthma without complication (HCC) Class 3 severe obesity due to excess calories with serious comorbidity and body mass index (BMI) of 40.0 to 44.9 in adult ([facility]) Uncontrolled type 2 diabetes mellitus with hyperglycemia [...] (BMI) of 40.0 to 44.9 in adult ([facility]) Mixed hyperlipidemia Mixed hyperlipidemia Encounter for monitoring [...] (BMI) of 40.0 to 44.9 in adult ([facility]CC) Type 2 diabetes mellitus without complication, without [...] (BMI) of 40.0 to 44.9 in adult ([facility]) Moderate episode of recurrent major depressive disorder [...] hyperglycemia (HCC)- Primary documented in this encounter [facility]* Diagnosis Type 2 diabetes mellitus without complication, without long-term current use of insulin (HCC)- Primary RLS (restless legs syndrome) Restless legs syndrome (RLS) Hyperlipidemia, unspecified hyperlipidemia type Primary hypertension Unspecified essential hypertension Moderate persistent asthma without complication (HCC) Class 3 severe obesity due to excess calories with serious comorbidity and body mass index (BMI) of 40.0 to 44.9 in adult ([facility]) Uncontrolled type 2 diabetes mellitus with hyperglycemia [...] (BMI) of 40.0 to 44.9 in adult ([facility]) Mixed hyperlipidemia Mixed hyperlipidemia Encounter for monitoring [...] (BMI) of 40.0 to 44.9 in adult ([facility]) Type 2 diabetes mellitus without complication, without [...] (BMI) of 40.0 to 44.9 in adult ([facility]) Moderate episode of recurrent major depressive disorder [...] Chronic pain syndrome documented in this encounter [facility]* Diagnosis Type 2 diabetes mellitus without complication, without long-term current use of insulin (HCC)- Primary RLS (restless legs syndrome) Restless legs syndrome (RLS) Hyperlipidemia, unspecified hyperlipidemia type Primary hypertension Unspecified essential hypertension Moderate persistent asthma without complication (HCC) Class 3 severe obesity due to excess calories with serious comorbidity and body mass index (BMI) of 40.0 to 44.9 in adult ([facility]) Uncontrolled type 2 diabetes mellitus with hyperglycemia [...] (BMI) of 40.0 to 44.9 in adult ([facility]) Mixed hyperlipidemia Mixed hyperlipidemia Encounter for monitoring [...] (BMI) of 40.0 to 44.9 in adult ([facility]) Type 2 diabetes mellitus without complication, without [...] (BMI) of 40.0 to 44.9 in adult ([facility]) Moderate episode of recurrent major depressive disorder [...] screening Special screening for malignant neoplasms, colon Mixed hyperlipidemia- Primary Mixed hyperlipidemia documented in this encounter [facility]* Diagnosis Type 2 diabetes mellitus without complication, without long-term current use of insulin (HCC)- Primary RLS (restless legs syndrome) Restless legs syndrome (RLS) Hyperlipidemia, unspecified hyperlipidemia type Primary hypertension Unspecified essential hypertension Moderate persistent asthma without complication (HCC) Class 3 severe obesity due to excess calories with serious comorbidity and body mass index (BMI) of 40.0 to 44.9 in adult ([facility]) Uncontrolled type 2 diabetes mellitus with hyperglycemia [...] (BMI) of 40.0 to 44.9 in adult ([facility]) Mixed hyperlipidemia Mixed hyperlipidemia Encounter for monitoring [...] (BMI) of 40.0 to 44.9 in adult ([facility]) Type 2 diabetes mellitus without complication, without [...] (BMI) of 40.0 to 44.9 in adult ([facility]) Moderate episode of recurrent major depressive disorder [...] Chronic pain syndrome documented in this encounter [facility]* Diagnosis Type 2 diabetes mellitus without complication, without long-term current use of insulin (HCC)- Primary RLS (restless legs syndrome) Restless legs syndrome (RLS) Hyperlipidemia, unspecified hyperlipidemia type Primary hypertension Unspecified essential hypertension Moderate persistent asthma without complication (HCC) Class 3 severe obesity due to excess calories with serious comorbidity and body mass index (BMI) of 40.0 to 44.9 in adult ([facility]) Uncontrolled type 2 diabetes mellitus with hyperglycemia [...] (BMI) of 40.0 to 44.9 in adult ([facility]) Mixed hyperlipidemia Mixed hyperlipidemia Encounter for monitoring [...] (BMI) of 40.0 to 44.9 in adult ([facility]) Type 2 diabetes mellitus without complication, without [...] (BMI) of 40.0 to 44.9 in adult ([facility]) Moderate episode of recurrent major depressive disorder [...] for malignant neoplasms, colon Chronic pain syndrome Chronic neck and back [facility] - [facility] Type Description Date Medical History restless leg syndrome Medical History seasonal allergies Medical History DM Medical History Arthritis Medical History asthma Medical History diabetes mallitus Surgical History left knee surgery x 2 Surgical History L1-L5 ablation 08/2021 Hospitalization History No know Hospitalization history [facility] Other History general Narrative - Reported* Type Description Date Medical History restless leg syndrome Medical History seasonal allergies Medical History DM Medical History Arthritis Medical History asthma Medical History diabetes mallitus Surgical History left knee surgery x 2 Surgical History L1-L5 ablation 08/2021 Hospitalization History No Hospitalization histo ry information [facility] Other History general Narrative - Reported* Type Description Date Medical History restless leg syndrome Medical History seasonal allergies Medical History DM Medical History Arthritis Medical History asthma Medical History diabetes mallitus Surgical History left knee surgery x 2 Surgical History L1-L5 ablation 08/2021 Hospitalization History see above [facility] Other Hospital course Narrative No data available for this section [facility] Discharge instructions Additional Instructions Continue your current medication May apply ice to the sore area To do stretching May use topical medicine such as IcyHot with lidocaine Bengay with lidocaine or lidocaine patch Follow-up with your back specialist Return to the ER for more severe pain weakness in your legs loss of bladder bowel control high fever [facility] Discharge instructions Additional Instructions May apply 1-2 lidocaine patches over sores areas daily Continue your other medication Follow-up with your doctor Return to the ER for worsening pain weakness in your legs loss of bladder bowel control or any other [facility] Phone: Hospital Discharge instructions No data available for this section [facility] Progress note No data available for this section [facility] Reason for referral (narrative)* Diagnostic Procedure Only (Routine) - Closed Specialty Diagnoses / Procedures Referred By Contac t Referred To Contact XR IMAGING Diagnoses Localized, primary osteoarthritis of hand, unspecified laterality Arthritis Chronic right-sided low back pain without sciatica Procedures XR HAND/WRIST SURVEY ARTHRITIS 1V PA BILATERAL JOINT SURVEY SINGLE VIEW 2 [place] [address] [place] [address] Xr Imaging Referral ID Status Reason Start Date Expiration Date V isits Requested Visits Authorized [id number] Closed Auto-Generate d Referral 10/30/2022 11/29/2023 1 1 [facility] for referral (narrative)* Diagnostic Procedure Only (Routine) - Closed Specialty Diagnoses / Procedures Referred By Contac t Referred To Contact XR IMAGING Diagnoses Localized, primary osteoarthritis of hand, unspecified laterality Arthritis Chronic right-sided low back pain without sciatica Procedures XR HAND/WRIST SURVEY ARTHRITIS 1V PA BILATERAL JOINT SURVEY SINGLE VIEW 2 [place] [address] [place] [address] Xr Imaging Referral ID Status Reason Start Date Expiration Date V isits Requested Visits Authorized [id number] Closed Auto-Generate d Referral 10/30/2022 11/29/2023 1 1 [facility] for visit Narrative* Outpatient Procedure (Routine) - Closed Specialty Diagnoses / Procedures Referred By Contac t Referred To Contact Spine Health / SPINE Diagnoses Sacroiliitis, not elsewhere classified Injection Type - Intra-articular Sacroiliac joint injection: Bilateral CPT 13043 Procedures INJECT SI JOINT ARTHRGRPHY&/ANES/STEROI D W/JB PROCEDURE SPINE [facility], Kb, DO [address] [place] [address] Spine Med Main [address] [place] [address] Referral ID Status Reason Start Date Expiration Date Visits Re quested Visits Authorized [id number] Closed 11/16/2022 12/05/2022 1 1 [facility] Chief Complaint and Reason for Visit [...] complication, with long-term current use of insulin ([facility]) Uncontrolled type 2 diabetes mellitus with hyperglycemia ([facility]) Denis Dunlap NP [address] [facility] [place] [address] Referral ID Status Reason Start Date Expiration Date V isits Requested Visits Authorized [id number] Pending Review 1 1 Specialty Diagnoses / Procedures Referred By Jevon t Referred To Contact Diagnoses Moderate persistent asthma without complication ([facility]) Denis Dunlap NP [address] [place] [address] Referral ID Status Reason Start Date Expiration Date V isits Requested Visits Authorized [id number] Pending Review 1 1 Specialty Diagnoses / Procedures Referred By Jevon t Referred To Contact Endocrinology Diagnoses Uncontrolled type 2 diabetes mellitus with hyperglycemia ([facility]) Procedures [place] OFFICE/OUTPATIENT NEW HIGH MDM 60 MINUTES Denis Dunlap NP [address] [place] [address] Referral ID Status Reason Start Date Expiration Date Visits Requested Visits Authorized [id number] Pending Review Specialty Services Required 05/27/2024 11/23/2024 1 1 Reason second opinion, surg ical consult Diagnosis 1 Inflammation of righ t sacroiliac joint (M46.1) Diagnosis 2 Lumbar spondylosis ( M47.816) Referral Organization [facility] Referring Provider First Name Francis Referring Provider Last Name Cortney Referring Provider Specialty Neurologica l Surgery Referred Organization [facility] Referred Address [address], [place],[address] Referred Provider Specialty Neurosurgery Referral Priority Routine Reason evaluate and treat f or sacroiliac and axial back pain \ Diagnosis 1 Sacro-iliac pain (M5 3.3) Referral Organization [facility] Referring Provider First Name Francis Referring Provider Last Name Cortney Referring Provider Specialty Neurologica l Surgery Referred Organization [facility] Pain Managemen t Ramiro Barrett Referred Provider Nahid Estevez Referred Address [address] [place], [place],[address] Referred Provider Specialty Pain Medicin e Referral Priority Routine Specialty Diagnoses / Procedures Referred By Contac t Referred To Contact Diagnoses Disturbance of sleep pattern associated with pain Procedures CONSULT TO SLEEP MEDICINE - ADULT OFFICE/OUTPATIENT [facility] 60-74 MINUTES Kb Lorenzo, [address] [place] [address] Referral ID Status Reason Start Date Expiration Date Visits Requested Visits Authorized [id number] Authorized PCP Requested Referral 11/15/2022 11/15/2023 1 1 Specialty Diagnoses / Procedures Referred By Contac t Referred To Contact [facility] [place] Diagnoses Chronic pain syndrome Procedures CONSULT TO [facility] ([facility] PAIN) OFFICE/OUTPATIENT [facility] 60-74 MINUTES Kb Lorenzo, [address] [place] [address] Referral ID Status Reason Start Date Expiration Date Visits Requested Visits Authorized [id number] Pending Review PCP Requested Referral 11/15/2022 11/15/2023 1 1 Specialty Diagnoses / Procedures Referred By Contac t Referred To Contact [facility] Diagnoses Chronic pain syndrome Procedures CONSULT TO [facility] PHYSICIAN OFFICE/OUTPATIENT [facility] 60-74 MINUTES [place] Lorenzo, [place] [address] [place] [address] [place] [address] Referral ID Status Reason Start Date Expiration Date V isits Requested Visits Authorized [id number] Closed PCP Requested Referral 11/15/2022 11/15/2023 1 1 Specialty Diagnoses / Procedures Referred By Contac t Referred To Contact [facility] Diagnoses Chronic bilateral low back pain without sciatica Chronic pain syndrome Procedures CONSULT TO PHYSICAL THERAPY PHYSICAL THERAPY EVALUATION [facility] 45 MINS Kb Lorenzo, [address] [place] [address] [facility] [place] [address] [place] [address] Referral ID Status Reason Start Date Expiration Date Visits Requested Visits Authorized [id number] Pending Review Auto-Generat ed Referral 11/15/2022 11/15/2023 1 1 Reason 09/28/22 @ 11:30am Evaluate and Treat R Hip Arthropathy Diagnosis 1 Trochanteric bursiti s of right hip (M70.61) Referral Organization [facility] Referring Provider First Name Francis Referring Provider Last Name Cortney Referring Provider Specialty Neurologica l Surgery Referred Organization [facility] Referred Provider Milton Valentine II Referred Address [address] [facility] [address] [place],[address] Referred Provider Specialty Orthopedic S urgery Referral Priority Routine Referral Appointment Date 2022-09-28 General Notes Lachelle Almaz 022 01:18:44 PM >Received today and sent P2P [facility] 09/28/2022 02:47:43 PM >[facility] 08:58:01 AM >Consult notes not locked yet [facility] 10/06/2022 11:26:02 AM >[facility]10[facility]22 09:04:40 AM >Consult notes not locked yet [facility] 10/11/2022 09:00:47 AM >Consult notes not locked yet [facility] 10/12/2022 08:14:26 AM >[facility]/13/2022 12:17:19 PM >Office notes not locked yet [facility] 10/16/2022 10:10:49 AM >Sent telephone encounter to referring physician to let them know that the consult letter is ready for their review Specialty Diagnoses / Procedures Referred By Jevon penaloza Referred To [facility] [place] Diagnoses Chronic bilateral low back pain without sciatica Procedures CONSULT TO [facility] ([facility]RONIC PAIN) OFFICE/OUTPATIENT [facility] 60-74 MINUTES Olayinka Boyd PA-C [address] [place] [address] Referral ID Status Reason Start Date Expiration Date Visits Requested Visits Authorized [id number] Pending Review PCP Requested Referral 10/19/2022 10/19/2023 [...] 2 [place] [address] [place] [address] Xr Imaging Referral ID Status Reason Start Date Expiration Date V isits Requested Visits Authorized [id number] Closed Auto-Generate d Referral 10/30/2022 11/29/2023 1 1 Specialty Diagnoses / Procedures Referred By Contac t Referred To Contact [facility] [place] Diagnoses Chronic bilateral low back pain without sciatica Procedures CONSULT TO [facility] (CHRONIC PAIN) OFFICE/OUTPATIENT [facility] 60-74 MINUTES Olayinka Boyd PA-C [address] [place] [address] Referral ID Status Reason Start Date Expiration Date Visits Requested Visits Authorized [id number] Pending Review PCP Requested Referral 10/19/2022 10/19/2023 1 1 Reason Comments pre inj phone call Reason Comments Consult Specialty Diagnoses / Procedures Referred By Contac t Referred To Contact [facility] [place] Diagnoses Chronic pain syndrome Procedures CONSULT TO [facility] (CHRONIC PAIN) OFFICE/OUTPATIENT [facility] 60-74 MINUTES Kb Lorenzo DO [address] [place] [address] Referral ID Status Reason Start Date Expiration Date Visits Requested Visits Authorized [id number] Pending Review PCP Requested Referral 11/15/2022 11/15/2023 1 1 Reason Comments Patient Question Reason Comments Electronic Communication Reason Onset Date Comments Refill Request 04/16/2023 Reason Onset Date Comments Refill Request 07/04/2023 Trazodone Rx Refill Request 07/05/2023 Refill Request 07/06/2023 Reason Comments Follow-up Reason Onset Date Comments Med Refill 07/08/2024 Reason Onset Date Comments MOUNJARO RX 07/08/2024 Pt left VM griselda bell the insurance said the Mounjaro dose was [...] P AIN PUMP PUT IN Jun AT [facility]. BUT SUGARS ARE TOO HIGH. PT [...] Reason Onset Date Comments Med Refill 04/15/2025 Reason Onset Date Comments Med Refill 05/19/2025 Care Teams (unrecognized sec tion and content) Team Status: Inactive Member Role Status Dates Carmen Wheatley MD Primary Care Provider Active Milton Valentine II, MD Attending Provider Active Team Status: Active Member Role Status Dates Carmen Wheatley MD Primary Care Provider Active Black [employer] White 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 Relationship Specialty Start Date End Date Shaikh Prater MD [address] [place] [address] PCP - General Primary Care 10/30/22 Black And White 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 Relationship Specialty Start Date End Date Shaikh Prater MD [address] [place] [address] PCP - General Primary Care 10/30/22 Black And White 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 Relationship Specialty Start Date End Date Shaikh Prater MD [address] [place] [address] PCP - General Primary Care 10/30/22 Black And White 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 Relationship Specialty Start Date End Date Shaikh Prater MD [address] [place] [address] PCP - General Primary Care 10/30/22 Black And White 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 Relationship Specialty Start Date End Date Shaikh Prater MD [address] [place] [address] PCP - General Primary Care 10/30/22 Black And White 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 Relationship Specialty Start Date End Date Shaikh Prater MD [address] [place] [address] PCP - General Primary Care 10/30/22 Team Status: Active Member Role Status Dates Shaikh Moi MD Primary Care Provider Active Team Status: Inactive Member Role Status Dates Kristina Delgado , PIANO REGULATOR- Emergency Provider Active Shaikh Moi MD Primary Care Provider Active Black And White 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 Relationship Specialty Start Date End Date Shaikh Prater MD [address] [place] [address] PCP - General Primary Care 10/30/22 Black And White 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 Relationship Specialty Start Date End Date Shaikh Prater MD [address] [place] [address] PCP - General Primary Care 10/30/22 Black And White 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 Relationship Specialty Start Date End Date Shaikh Prater MD [address] [place] [address] PCP - General Primary Care 10/30/22 Black And White 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 Relationship Specialty Start Date End Date Shaikh Prater MD [address] [place] [address] PCP - General Primary Care 10/30/22 Team Status: Inactive Member Role Status Beth Prater MD Primary Care Provider Active LARRY López- Attending Provider Active Team Status: Inactive Member Role Status Beth Prater MD Primary Care Provider Active Tracy Wu ANP-BC Attending Provider, Referri ng Provider Active Team Status: Inactive Member Role Status Beth Prater MD Primary Care Provider Active Kristina Delgado [facility] Emergency Provider Active Team Status: Inactive Member Role Status Beth Prater MD Primary Care Provider Active Tracy Wu APRN Attending Provider Active Black And White 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 Relationship Specialty Start Date End Date Shaikh Prater MD PCP - General Internal Medicine 10/08/22 Black And White 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 Relationship Specialty Start Date End Date Shaikh Prater MD PCP - General Internal Medicine 10/08/22 Black And White 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 Relationship Specialty Start Date End Date Shaikh Prater MD [address] [place] [address] PCP - General Internal Medicine 11/19/23 Black And White 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 Relationship Specialty Start Date End Date Shaikh Prater MD [address] [place] [address] PCP - General Internal Medicine 11/19/23 Black And White 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 Relationship Specialty Start Date End Date J Luis Cárdenas MD [address] [place] [address] PCP - General Family Medicine 05/08/24 Denis Dunlap NP [address] [place] [address] Nurse Practitioner Family Medicine 05/08/24 Black And White 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 Relationship Specialty Start Date End Date J Luis Cárdenas MD [address] [place] [address] PCP - General Family Medicine 05/08/24 Denis Dunlap NP [address] [place] [address] Nurse Practitioner Family Medicine 05/08/24 Black And White 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 Relationship Specialty Start Date End Date J Luis Cárdenas MD [address] [place] [address] PCP - General Family Medicine 05/08/24 Denis Dunlap NP [address] [place] [address] Nurse Practitioner Family Medicine 05/08/24 Black And White 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 Relationship Specialty Start Date End Date J Luis Cárdenas MD [address] [place] [address] PCP - General Family Medicine 05/08/24 Denis Dunlap NP [address] [place] [address] Nurse Practitioner Family Medicine 05/08/24 Black And White 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 Relationship Specialty Start Date End Date J Luis Cárdenas MD [address] [place] [address] PCP - General Family Medicine 05/08/24 Denis Dunlap NP [address] [place] [address] Nurse Practitioner Family Medicine 05/08/24 Black And White 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 Relationship Specialty Start Date End Date J Luis Cárdenas MD [address] [place] [address] PCP - General Family Medicine 05/08/24 07/27/24 Denis Dunlap NP [address] [place] [address] Nurse Practitioner Family Medicine 05/08/24 Black And White 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 Relationship Specialty Start Date End Date Unallocated, Liss MD Polly [address] [place] [address] PCP - General Family Medicine 07/28/24 Denis Dunlap NP [address] [place] [address] Nurse Practitioner Family Medicine 05/08/24 Black And White 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 Relationship Specialty Start Date End Date Unallocated, Kb Matias MD [address] [place] [address] PCP - General Family Medicine 07/28/24 Denis Dunlap NP [address] [place] [address] Nurse Practitioner Family Medicine 05/08/24 Black And White 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 Relationship Specialty Start Date End Date Unallocated, Kb Matias MD [address] [place] [address] PCP - General Family Medicine 07/28/24 Denis Dunlap NP [address] [place] [address] Nurse Practitioner Family Medicine 05/08/24 Black And White 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 Relationship Specialty Start Date End Date J Luis Cárdenas MD [address] [place] [address] PCP - General Family Medicine 08/07/24 Denis Dunlap NP [address] [place] [address] Nurse Practitioner Family Medicine 05/08/24 Black And White 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 Relationship Specialty Start Date End Date J Luis Cárdenas MD [address] [place] [address] PCP - General Family Medicine 08/07/24 Denis Dunlap NP [address] [place] [address] Nurse Practitioner Family Medicine 05/08/24 Black And White 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 Relationship Specialty Start Date End Date J Luis Cárdenas MD [address] [place] [address] PCP - General Family Medicine 08/07/24 Denis Dunlap NP [address] [place] [address] Nurse Practitioner Family Medicine 05/08/24 Black And White 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 Relationship Specialty Start Date End Date J Luis Cárdenas MD [address] [place] [address] PCP - General Family Medicine 08/07/24 Denis Dunlap NP [address] [place] [address] Nurse Practitioner Family Medicine 05/08/24 Black And White 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 Relationship Specialty Start Date End Date J Luis Cárdenas MD [address] [place] [address] PCP - General Family Medicine 08/07/24 Denis Dunlap NP [address] [place] [address] Nurse Practitioner Family Medicine 05/08/24 Black And White 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 Relationship Specialty Start Date End Date J Luis Cárdenas MD [address] [place] [address] PCP - General Family Medicine 08/07/24 Denis Dunlap NP [address] [place] [address] Nurse Practitioner Family Medicine 05/08/24 Black And White 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 Relationship Specialty Start Date End Date J Luis Cárdenas MD [address] [place] [address] PCP - General Family Medicine 08/07/24 Denis Dunlap NP [address] [place] [address] Nurse Practitioner Family Medicine 05/08/24 Black And White 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 Relationship Specialty Start Date End Date J Luis Cárdenas MD [address] [place] [address] PCP - General Family Medicine 05/08/24 Denis Dunlap NP [address] [place] [address] Nurse Practitioner Family Medicine 05/08/24 Black And White 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 Relationship Specialty Start Date End Date J Luis Cárdenas MD [address] [place] [address] PCP - General Family Medicine 08/07/24 Denis Dunlap NP [address] [place] [address] Nurse Practitioner Family Medicine 05/08/24 Black And White 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 Relationship Specialty Start Date End Date J Luis Cárdenas MD [address] [place] [address] PCP - General Family Medicine 05/08/24 Denis Dunlap NP [address] [place] [address] Nurse Practitioner Family Medicine 05/08/24 Black And White 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 Relationship Specialty Start Date End Date J Luis Cárdenas MD [address] [place] [address] PCP - General Family Medicine 05/08/24 Denis Dunlap NP [address] [place] [address] Nurse Practitioner Family Medicine 05/08/24 Black And White 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 Relationship Specialty Start Date End Date J Luis Cárdenas MD [address] [place] [address] PCP - General Family Medicine 05/08/24 Denis Dunlap NP [address] [place] [address] Nurse Practitioner Family Medicine 05/08/24 Black And White 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 Relationship Specialty Start Date End Date J Luis Cárdenas MD [address] [place] [address] PCP - General Family Medicine 05/08/24 Denis Dunlap NP [address] [place] [address] Nurse Practitioner Family Medicine 05/08/24 Black And White 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 Relationship Specialty Start Date End Date J Luis Cárdenas MD [address] [place] [address] PCP - General Family Medicine 05/08/24 Denis Dunlap NP [address] [place] [address] Nurse Practitioner Family Medicine 05/08/24 Black And White 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 Relationship Specialty Start Date End Date J Luis Cárdenas MD [address] [place] [address] PCP - General Family Medicine 05/08/24 Denis Dunlap NP [address] [place] [address] Nurse Practitioner Family Medicine 05/08/24 Black And White 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 Relationship Specialty Start Date End Date J Luis Cárdenas MD [address] [place] [address] PCP - General Family Medicine 05/08/24 Denis Dunlap NP [address] [place] [address] Nurse Practitioner Family Medicine 05/08/24 Black And White 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 Relationship Specialty Start Date End Date J Luis Cárdenas MD [address] [place] [address] PCP - General Family Medicine 05/08/24 Denis Dunlap NP [address] [place] [address] Nurse Practitioner Family Medicine 05/08/24 Black And White 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 Relationship Specialty Start Date End Date J Luis Cárdenas MD [address] [place] [address] PCP - General Family Medicine 05/08/24 Denis Dunlap NP [address] [place] [address] Nurse Practitioner Family Medicine 05/08/24 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 Relationship Specialty Start Date End Date J Luis Cárdenas MD [address] [place] [phone] PCP - General Family Medicine 08/07/24 Denis Dunlap NP [address] [place] [address] Nurse Practitioner Family Medicine 05/08/24 [employer] White 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 Relationship Specialty Start Date End Date J Luis Cárdenas MD [address] [place] [phone] PCP - General Family Medicine 08/07/24 Denis Dunlap NP [address] [place] [address] Nurse Practitioner Family Medicine 05/08/24 [employer] White 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 Relationship Specialty Start Date End Date J Luis Cárdenas MD [address] [place] [address] PCP - General Family Medicine 08/07/24 Denis Dunlap NP [address] [place] [address] Nurse Practitioner Family Medicine 05/08/24 [employer] White 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 Relationship Specialty Start Date End Date JLuis Cárdenas MD [address] [place] [address] PCP - General Family Medicine 08/07/24 Denis Dunlap NP [address] [place] [address] Nurse Practitioner Family Medicine 05/08/24 [employer] White 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 Relationship Specialty Start Date End Date J Luis Cárdenas MD [address] [place] [address] PCP - General Family Medicine 08/07/24 Denis Dunlap NP [address] [place] [address] Nurse Practitioner Family Medicine 05/08/24 [employer] White 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 Relationship Specialty Start Date End Date J Luis Cárdenas MD [address] [place] [address] PCP - General Family Medicine 08/07/24 Denis Dunlap NP [address] [place] [address] Nurse Practitioner Family Medicine 05/08/24 [employer] White 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 Relationship Specialty Start Date End Date J Luis Cárdenas MD [address] [place] [address] PCP - General Family Medicine 08/07/24 Denis Dunlap NP Nurse Practitioner Family Medicine 05/08/24 [employer] White 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 Relationship Specialty Start Date End Date J Luis Cárdenas MD [address] [place] [place] [address] PCP - General Family Medicine 08/07/24 Denis Dunlap NP Nurse Practitioner Family Medicine 05/08/24 [employer] White 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 Relationship Specialty Start Date End Date J Luis Cárdenas MD [address] [place] [address] PCP - General Family Medicine 08/07/24 Denis Dunlap NP Nurse Practitioner Family Medicine 05/08/24 [employer] White 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 Relationship Specialty Start Date End Date J Luis Cárdenas MD [address] [place] [address] PCP - General Family Medicine 08/07/24 Denis Dunlap NP Nurse Practitioner Family Medicine 05/08/24 [employer] White 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 Relationship Specialty Start Date End Date J Luis Cárdenas MD [address] [place] [address] PCP - General Family Medicine 08/07/24 Denis Dunlap NP Nurse Practitioner Family Medicine 05/08/24 [employer] And White 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 Relationship Specialty Start Date End Date J Luis Cárdenas MD [address] [place] [address] PCP - General Family Medicine 08/07/24 Denis Dunlap NP Nurse Practitioner Family Medicine 05/08/24 [employer] 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 Relationship Specialty Start Date End Date J Luis Cárdenas MD [address] [place] [address] PCP - General Family Medicine 08/07/24 Denis Dunlap NP Nurse Practitioner Family Medicine 05/08/24 [employer] White 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 Relationship Specialty Start Date End Date J Luis Cárdenas MD [address] [place] [address] PCP - General Family Medicine 08/07/24 Denis Dunlap NP Nurse Practitioner Family Medicine 05/08/24 [employer] And White 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 Relationship Specialty Start Date End Date J Luis Cárdenas MD [address] [place] [address] PCP - General Family Medicine 08/07/24 Denis Dunlap NP Nurse Practitioner Family Medicine 05/08/24 [employer] White 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 Relationship Specialty Start Date End Date J Luis Cárdenas MD [address] [place] [address] PCP - General Family Medicine 08/07/24 Denis Dunlap NP Nurse Practitioner Family Medicine 05/08/24 [employer] And White 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 Relationship Specialty Start Date End Date J Luis Cárdenas MD [address] [place] [address] PCP - General Family Medicine 08/07/24 Denis Dunlap NP Nurse Practitioner Family Medicine 05/08/24 [employer] White 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 Relationship Specialty Start Date End Date J Luis Cárdenas MD [address] [place] [address] PCP - General Family Medicine 08/07/24 Denis Dunlap NP Nurse Practitioner Family Medicine 05/08/24 [employer] And White 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 Relationship Specialty Start Date End Date J Luis Cárdenas MD [address] [place] [address] PCP - General Family Medicine 08/07/24 Denis Dunlap NP Nurse Practitioner Family Medicine 05/08/24 [employer] White 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 Relationship Specialty Start Date End Date J Luis Cárdenas MD [address] [place] [address] PCP - General Family Medicine 08/07/24 Denis Dunlap NP Nurse Practitioner Family Medicine 05/08/24 [employer] White 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 Relationship Specialty Start Date End Date J Luis Cárdenas MD [address] [place] [address] PCP - General Family Medicine 08/07/24 Denis Dunlap NP Nurse Practitioner Family Medicine 05/08/24 [employer] White 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 Relationship Specialty Start Date End Date J Luis Cárdenas MD [address] [place] [address] PCP - General Family Medicine 08/07/24 Denis Dunlap NP Nurse Practitioner Family Medicine 05/08/24 [employer] White 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 Relationship Specialty Start Date End Date J Luis Cárdenas MD [address] [place] [address] PCP - General Family Medicine 08/07/24 Denis [...] or prosecute any alcohol or drug abuse patient.[facility] the event this information is protected by the Federal Confidentiality of Alcohol and Drug Abuse Patient Records regulations: The Federal rules restrict any use of the information to criminally investigate or prosecute any alcohol or drug abuse patient.[facility] the event this information is protected by the Federal Confidentiality of Alcohol and Drug Abuse Patient Records regulations: The Federal rules restrict any use of the information to criminally investigate or prosecute any alcohol or drug abuse patient.[facility] the event this information is protected by the Federal Confidentiality of Alcohol and Drug Abuse Patient Records regulations: The Federal rules restrict any use of the information to criminally investigate or prosecute any alcohol or drug abuse patient.[facility] HospitalIn the event this information is protected by the Federal Confidentiality of Alcohol and Drug Abuse Patient Records regulations: The Federal rules restrict any use of the information to criminally investigate or prosecute any alcohol or drug abuse patient.[facility] HospitalIn the event this information is protected by the Federal Confidentiality of Alcohol and Drug Abuse Patient Records regulations: The Federal rules restrict any use of the information to criminally investigate or prosecute any alcohol or drug abuse patient.[facility] HospitalIn the event this information is protected by the Federal Confidentiality of Alcohol and Drug Abuse Patient Records regulations: The Federal rules restrict any use of the information to criminally investigate or prosecute any alcohol or drug abuse patient.[facility] HospitalIn the event this information is protected by the Federal Confidentiality of Alcohol and Drug Abuse Patient Records regulations: The Federal rules restrict any use of the information to criminally investigate or prosecute any alcohol or drug abuse patient.[facility] HospitalIn the event this information is protected by the Federal Confidentiality of Alcohol and Drug Abuse Patient Records regulations: The Federal rules restrict any use of the information to criminally investigate or prosecute any alcohol or drug abuse patient.[facility] Hospital[facility] the event this information is protected by the Federal Confidentiality of Alcohol and Drug Abuse Patient Records regulations: The Federal rules restrict any use of the information to criminally investigate or prosecute any alcohol or drug abuse patient.[facility] HospitalIn the event this information is protected by the Federal Confidentiality of Alcohol and Drug Abuse Patient Records regulations: The Federal rules restrict any use of the information to criminally investigate or prosecute any alcohol or drug abuse patient.[facility] HospitalIn the event this information is protected by the Federal Confidentiality of Alcohol and Drug Abuse Patient Records regulations: The Federal rules restrict any use of the information to criminally investigate or prosecute any alcohol or drug abuse patient.[facility] HospitalIn the event this information is protected by the Federal Confidentiality of Alcohol and Drug Abuse Patient Records regulations: The Federal rules restrict any use of the information to criminally investigate or prosecute any alcohol or drug abuse patient.[facility] HospitalIn the event this information is protected by the Federal Confidentiality of Alcohol and Drug Abuse Patient Records regulations: The Federal rules restrict any use of the information to criminally investigate or prosecute any alcohol or drug abuse patient.[facility] HospitalIn the event this information is protected by the Federal Confidentiality of Alcohol and Drug Abuse Patient Records regulations: The Federal rules restrict any use of the information to criminally investigate or prosecute any alcohol or drug abuse patient.[facility] HospitalIn the event this information is protected by the Federal Confidentiality of Alcohol and Drug Abuse Patient Records regulations: The Federal rules restrict any use of the information to criminally investigate or prosecute any alcohol or drug abuse patient.[facility] (unrecognized sect ion and content) No Status Records FoundNo Status Records FoundNo Status Records FoundNo Status Records FoundNo Status Records FoundNo Status Records FoundNo Status Records Found INFORMATION SOURCE (unrecogn ized section and content) DATE CREATED AUTHOR 03/16/2023 [facility] DATE CREATED AUTHOR AUTHOR'S ORGANIZ ATION 03/29/2023 [facility] DATE CREATED AUTHOR AUTHOR'S ORGANIZ ATION 05/27/2023 [facility] DATE CREATED AUTHOR AUTHOR'S ORGANIZ ATION 11/16/2023 [facility] DATE CREATED AUTHOR AUTHOR'S ORGANIZ ATION 05/30/2024 [facility] DATE CREATED AUTHOR AUTHOR'S ORGANIZ ATION 04/06/2025 [facility] DATE CREATED AUTHOR AUTHOR'S ORGANIZ ATION 06/18/2025 [facility] FOR RECORDS PERTAINING TO PATIENTS WHO ARE [...] BE BASED ON THE PRIMARY CLINICAL RECORDS. [employer] provides no warranty or guarantee of the accuracy or completeness of information in this document.
[2025-06-29 11:28] LABS: Alanine Aminotransferase 34 U/L (16-63); Aspartate Amino Transferase 13 U/L (15-37); Cholesterol 114 mg/dL (<=200); HDL Cholesterol 36 mg/dL (40-60); Triglycerides 148 mg/dL (<=150); VLDL CHOLESTEROL 29.6 mg/dL
== END 2025-06-29 10:21 | disposition home or self-care (01) ==
PROVIDERS: PCP Nurse Practitioner; Visit Provider Nurse Practitioner
DX: E78.2 Mixed hyperlipidemia (principal)
CPT/HCPCS: 36415; 80061; 84450; 84460